=== PATIENT | male | born 1945 ===

== ENCOUNTER 2022-09-09 15:51 | Outpatient (REF) | payer OTHER, SELFPAY ==
[2022-09-09 19:08] LABS: Hemoglobin A1C 5.6 % (<5.7)
[2022-09-09 19:17] LABS: ALT 38 U/L (16-63); AST 23 U/L (15-37); Albumin 4.1 g/dL (3.4-5.0); Alkaline Phosphatase 56 U/L (46-116); Anion Gap 4.9 mmol/L (3-11); BUN 7 mg/dL (7-18); Bilirubin, Total 0.5 mg/dL (0.2-1.0); CO2 31.1 mmol/L (21.0-32.0); Calcium 9.1 mg/dL (8.5-10.1); Calculated LDL 114 mg/dL (<100); Chloride 102 mmol/L (98-107); Cholesterol 202 mg/dL (<200); Estimated GFR 78.49 (mL/min/1.73m2); Glucose 111 mg/dL (74-106); HDL Cholesterol 75 mg/dL (40-60); Potassium 4.4 mmol/L (3.5-5.1); Sodium 138 mmol/L (136-145); Total Protein 7.7 g/dL (6.4-8.2); Triglyceride 68 mg/dL (<150)
[2022-09-12 09:08] LABS: PSA, Screening 3.7 ng/mL (<=6.5)
== END 2022-09-09 15:52 | disposition home or self-care (01) ==
LOC: NCHCN 15:51
PROVIDERS: Visit Provider Nurse Practitioner Family
DX: Z13.1 Encounter for screening for diabetes mellitus (principal); Z13.220 Encounter for screening for lipoid disorders; Z12.5 Encounter for screening for malignant neoplasm of prostate; Z00.00 Encounter for general adult medical examination without abnormal findings
CPT/HCPCS: 80053; 80061; 84153; 83036

== ENCOUNTER 2023-05-29 15:38 | Emergency (ER) | payer MEDICARE, OTHER, SELFPAY ==
[2023-05-29 15:49] VITALS: BP 148/71; PULSE 62; RESP 14; TEMP 36.7; O2SAT 99
--- NOTE | 2023-05-29 16:04 | ED.GENADUL_ITS ---
Discharge Plan Disposition Patient Disposition: Home Condition: Stable Discharge Details Chief Complaint: Laceration Clinical Impression: Laceration of right wrist Primary Care Provider: Unknown,Unknown ED Provider: Deven Meadows Discharge Instructions Additional Instructions: Your wound appears to be healing well without signs of infection you can keep bacitracin or neosporin on the wound for a week if not better within a week follow up with your primary care provider if you feel more ill, have severe worsening pain or fevers return to the emergency department Medical Decision Making 77 yo male comes in with a right anterior wrist wound for a week. States he cut it on a shingle a week ago and still has some redness around the wound so came here to have it evaluated. Denies pain, fevers, pain. He has a 1cm scabbed wound on the anterior right wrist, no tenderness or fluctuance, no palpable foreign body, has 1mm very faint erythema surrounding the wound. Exam consistent with healing wound and do not feel he requires antibiotics. Advised he can use topical antimicrobial and advised to f/u with pcp if not improving in a week and return precautions given Differential Diagnosis Differential Diagnosis: healing wound, lac, HPI General Mode of arrival: ambulatory . Date/Time Provider Initiated Documentation: 05/29/23 15:41 . Limitations to Documentation: no limitations . Information obtained by: patient . History of Present Illness 77 year old M presents to the emergency department with the chief complaint of right wrist wound, described as mild and moderate, Patient started experiencing this week(s) (1) and it has been constant. No relieving factors improve symptom(s), No exacerbating factors reported . Patient notes no other symptoms.. Related Data Home Medications Medication Instructions Recorded Confirmed Unknown [No Known Home Meds] 05/29/23 05/29/23 Allergies Allergy/AdvReac Type Severity Reaction Status Date / Time atorvastatin [From Lipitor] Allergy Severe Other (See Unverified 05/29/23 15:55 Comment) coconut Allergy Severe Anaphylaxis Unverified 05/29/23 15:54 General Stated Complaint: Laceration JANELLE: 4 Review of Systems All systems reviewed & are unremarkable except as noted in HPI and below Constitutional Constitutional: Denies chills, Denies fever(s) and Denies weakness Cardiovascular Cardiovascular: Denies chest pain and Denies dyspnea Respiratory Respiratory: Denies cough and Denies dyspnea Gastrointestinal Gastrointestinal: Denies abdominal pain, Denies nausea and Denies vomiting Neurologic Neurologic: Denies weakness PFSH All Active Problems (Updated 05/29/23 @ 16:07 by Deven Meadows MD) Laceration of right wrist (Acute) Social History Smoking/Tobacco Use Status: Never Smoking risk assessment performed?: Yes Alcohol Intake: current Alcohol Intake frequency: 0-2 drinks per day Alcohol type: wine Drug use: Never Substance use type: does not use Housing: house Exam Const General: no acute distress Orientation: alert HENMT Head: normal to inspection Ears: external ears normal General nose exam: external nose normal Mouth: moist mucous membranes Eyes General: appearance normal, both eyes and all related structures Neck Neck: normal visual inspection Resp Effort & Inspection: normal respiratory effort and able to speak in complete sentences Cardio Rate: regular rate Skin General skin exam: elasticity normal Neuro General: patient alert and patient oriented x3 Extrem General: full ROM and capillary refill normal Psych Mental Status: mental status grossly normal Course Vital Signs Vital signs: Vital Signs Temperature 36.7 C 05/29/23 15:49 Pulse 62 05/29/23 15:49 Respiratory Rate 14 05/29/23 15:49 Blood Pressure 148/71 H 05/29/23 15:49 Pulse Oximetry 99 05/29/23 15:49 Temperature 36.7 C 05/29/23 15:49 Temperature Source Temporal Artery Scan 05/29/23 15:49 Pulse 62 05/29/23 15:49 Respiratory Rate 14 05/29/23 15:49 Respiratory Effort Normal 05/29/23 15:51 Blood Pressure 148/71 H 05/29/23 15:49 Blood Pressure Position Sitting 05/29/23 15:49 Pulse Oximetry 99 05/29/23 15:49 Oxygen Delivery Method Room Air 05/29/23 15:49 Oxygen Flow Rate 0 05/29/23 15:49 Pain Level 0 05/29/23 15:49 PAWSS Have you Been Recently Intoxicated or Drunk Within the Last 30 days?: No Have you Ever Experienced Previous Episodes of Alcohol Withdrawal?: No Have you ever Experienced Withdrawal Seizures?: No Have you ever Experienced Delirium Tremens(DT)s?: No Have you ever undergone Alcohol Rehabilitation Treatment (i.e, inpt ot outpatient treatment programs)?: No Have you ever Experienced Blackouts?: No Have you ever Combined Alcohol with other Downers within the last 90 days?: No Have you ever Combined Alcohol with any other Substance of Abuse during the last 90 days?: No Result: 0
[2023-05-29] MEDS: Bacitracin 1 PACKET TP (16:05)
== END 2023-05-29 16:18 | disposition home or self-care (01) ==
PROVIDERS: Emergency Provider Emergency Medicine
DX: S61.511A Laceration without foreign body of right wrist, initial encounter (principal); X58.XXXA Exposure to other specified factors, initial encounter
CPT/HCPCS: 99281; 99282

== ENCOUNTER 2023-11-13 15:15 | Outpatient (REF) | payer MEDICARE, OTHER, SELFPAY ==
[2023-11-13 20:03] LABS: HCT 40.6 % (40.0-50.0); HGB 14.3 g/dL (13.5-17.5); MCH 32.2 pg (27.0-33.0); MCHC 35.2 % (32.0-36.0); MCV 91 fL (80-95); MPV 9.2 fL (8.0-11.0); Platelet Count 216 10^3/uL (130-400); RBC 4.44 10^6/uL (4.36-5.78); RDW 13.3 % (11.8-14.1); RDW-SD 44.3 fL; WBC 4.62 10^3/uL (4.4-10.8)
[2023-11-13 20:24] LABS: ALT 41 U/L (16-63); AST 24 U/L (15-37); Albumin 4.1 g/dL (3.4-5.0); Alkaline Phosphatase 57 U/L (46-116); Anion Gap 10.3 mmol/L (3-11); BUN 9 mg/dL (7-18); CO2 24.7 mmol/L (21.0-32.0); Calcium 9.3 mg/dL (8.5-10.1); Chloride 103 mmol/L (98-107); Glucose 111 mg/dL (74-106); Potassium 4.3 mmol/L (3.5-5.1); Sodium 138 mmol/L (136-145); Total Protein 7.6 g/dL (6.4-8.2)
[2023-11-13 21:42] LABS: Bilirubin, Total 0.6 mg/dL (0.2-1.0)
[2023-11-14 18:05] LABS: PSA, Screening 4.1 ng/mL (<=6.5)
== END 2023-11-13 15:16 | disposition home or self-care (01) ==
LOC: NCHCN 15:15
PROVIDERS: Visit Provider Nurse Practitioner Family
DX: D64.9 Anemia, unspecified (principal); K76.0 Fatty (change of) liver, not elsewhere classified; Z12.5 Encounter for screening for malignant neoplasm of prostate; N40.1 Benign prostatic hyperplasia with lower urinary tract symptoms
CPT/HCPCS: 80053; 84153; 85027

== ENCOUNTER 2024-01-13 11:39 | Emergency (ER) | payer MEDICARE, OTHER, SELFPAY ==
[2024-01-13 11:41] VITALS: BP 169/88; PULSE 74; RESP 15; TEMP 36.6; O2SAT 99
--- NOTE | 2024-01-13 11:44 | ED.GENADUL_ITS ---
Discharge Plan Disposition Patient Disposition: Home Discharge Details Clinical Impression: Degenerative disc disease, cervical Primary Care Provider: Unknown,Unknown ED Provider: Agusto Gorman Home Meds and New Rx's Prescriptions: Continued omeprazole 40 mg capsule,delayed release(DR/EC) 40 mg PO DAILY Discharge Instructions Additional Instructions: You are seen in the emergency department for your neck pain. Your CAT scan showed no sign of any fractures in your neck. You do have degenerative disc disease. Please follow-up with your primary care provider as you may benefit from an MRI. If you develop weakness in your hands or lose sensation in her hands please return to the emergency department. Otherwise please follow-up with the primary care provider. You are receiving several tablets of an opiate medicine which you should take as needed for pain. Please do not drive or operate any machinery after taking your opiates. For your pain please take medications as follows: 1. Take acetaminophen (Tylenol), 1,000 mg (two 500 mg tabs) every 6 hours Discharge Data Discharge Date/Time-TO BE ENTERED AT DEPARTURE: 01/13/24 14:25 HPI General Date/Time Provider Initiated Documentation: 01/13/24 11:44 . HPI Narrative: MDM This is a very well-appearing normothermic and not tachycardic 78-year-old male with fall 2 weeks ago and persistent neck pain concerning for cervical fracture based on age. Patient is neurologically intact so if his CT is negative I do not feel he requires an emergent MRI. Given the duration of time since his fall and his lack of nausea vomiting and headache my suspicion for subdural hematoma is low as I do not feel that he requires a CT head. Furthermore has not been nauseous or dizzy. No pain out of proportion to suggest necrotizing soft tissue infection. No upper extremity weakness nor hyperreflexia to suggest upper motor neuron lesion. No midline thoracic nor lumbar spinal pain to suggest benefit from CT thorax nor lumbar. Clear lungs bilaterally without chest pain nor shortness of breath so my suspicion is low for pneumothorax I did not obtain chest x-ray. No chest pain to suggest ACS. No weakness and neurologically intact so doubt CVA. No visual changes to suggest increased risk for retinal detachment. No tonic-clonic activity to suggest seizures I do not feel the patient requires an EEG. No recent chiropractic manipulation to suggest cervical arterial dissection. No generator use and no LANDAVERDE so my suspicion for toxicity from carbon monoxide is low. No headache nor visual changes to suggest giant cell arteritis. 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 Will defer acetaminophen as patient has been taking this at home with little relief. 2:[address] showing no acute fracture or subluxation but cervical spondylosis and degenerative disc disease. Will advise continued acetaminophen and provide several oxycodone tablets as patient did not feel much improved following diaze janny. I advised PCP follow-up. Will give patient return indications including any weakness loss of sensation in his hands or any recurrent falls. Patient, and I discussed return indications and patient was discharged with empiric trial of expectant outpatient management. 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 Patient reports that approximately 2 weeks ago he fell forward. He reports breaking his glasses. He was able to get up but has had persistent left-sided neck pain. He has a history of degenerative neck disease he reports. 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 He has been taking acetaminophen but this has not improved his symptoms. He has had no weakness in his hands or shoulders. No chest pain. No shortness of breath. No subsequent falls. He has had no back pain but does have sore shoulders. No dysuria nor frequency. No headaches. No visual changes. Exam General: Well-appearing in no acute distress speaking in complete sentences. Head: Normocephalic, atraumatic. Eye:[Pupils equal, round reactive to light.] Extraocular eye movements intact. No conjunctival injection. No scleral icterus. Ear, nose, mouth, throat: Grossly normal inspection. Normal voice, handling secretions normally. Neck: Trachea midline. Midline cervical spinal tenderness at approximately level of C3. No step-offs. Cardiovascular: Well-perfused distal extremities. Regular rate and rhythm. Respiratory: Nonlabored respiration. Clear lungs bilaterally. Gastrointestinal: Nondistended abdomen. Musculoskeletal: No edema. Moving all 4 extremities spontaneously. 5 out of 5 strength bilateral upper and lower extremities. Negative Sepulveda's sign. No signs of muscle wasting in hands. Intact sensation motor function bilateral hands across the radial, median, and ulnar nerve distributions. Skin: Normal for age and race, grossly normal temperature and turgor. No acute rash. Neurologic: Alert and appropriate, no apparent acute deficits. GCS 15. Cranial nerves II through XII intact grossly. No dysmetria. No dysdiadochokinesia. No pronator drift. Psychiatric: Mood and manner are appropriate. Grooming and personal hygiene are appropriate. Related Data Home Medications Medication Instructions Recorded Confirmed omeprazole 40 mg capsule,delayed 40 mg PO DAILY 01/13/24 01/13/24 release Allergies Allergy/AdvReac Type Severity Reaction Status Date / Time coconut Allergy Severe Anaphylaxis Unverified 01/13/24 11:45 atorvastatin [From Lipitor] AdvReac Severe joint Unverified 01/13/24 12:17 pain/ stiffness/ unable to move General JANELLE: 4 Medical Decision Making Quality:SDOH Health Related Social Needs: No Data to Display PFSH All Active Problems (Updated 01/13/24 @ 14:11 by Agusto Gorman MD) Degenerative disc disease, cervical (Acute) Social History Smoking/Tobacco Use Status: Never Smoking risk assessment performed?: Yes Alcohol Intake: current Alcohol Intake frequency: 0-2 drinks per day Alcohol type: wine Drug use: Never Substance use type: does not use Housing: house
--- NOTE | 2024-01-13 12:15 | DI.CT_ITS ---
Exam(s) CT CERVICAL SPINE WO EXAM: CT CERVICAL SPINE WO CLINICAL HISTORY: Midline neck pain status post fall. TECHNIQUE: Imaging Protocol: Axial computed tomography images with coronal and sagittal reformatted images were created and reviewed COMPARISON: No exams were available for comparison FINDINGS: Bones: No acute fracture or subluxation. There is straightening of the normal cervical lordosis. The re are degenerative changes seen throughout the cervical spine characterized by joint space narrowing and osteophytes. The findings are most marked at C4-5 and C5-C6 with combination of central spinal canal or neural foraminal stenosis present. There is multilevel facet arthropathy in the cervical sp ine. Soft Tissues: Unremarkable. Lung Apices: Clear. IMPRESSION: 1. No acute fracture or subluxation in the cervical spine. 2. Moderately severe degenerative changes in the cervical spine as described above. RADIATION DOSE DELIVERED: Total DLP Total DLP DATA REPOSITORY: All CT scans at this facility are submitted to the National Radiology Data Registry (NRDR) Dose Index Registry (DIR) with the [employer] (ACR). RADIATION OPTIMIZATION: All CT scans at this facility use at least one of these dose optimization te chniques: automated exposure control; mA and/or kV adjustment per patient size (includes targeted exa ms where dose is matched to clinical indication); or iterative reconstruction.
[2024-01-13] MEDS: diazePAM 5 MG TAB PO (12:39)
[2024-01-13] MEDS: Lidocaine 5% Patch 1 PATCH TP (12:59)
--- NOTE | 2024-01-13 13:45 | DI.VRAD_ITS ---
PROCEDURE INFORMATION: Exam: CT Cervical Spine Without Contrast Exam date and time: 01/13/2024 12:51 PM Age: 78 years old Clinical indication: Injury or trauma; Other: Midline neck pain status post fall; Sprain or strain, cervical ligaments TECHNIQUE: Imaging protocol: Computed tomography of the cervical spine without contrast. COMPARISON: No relevant prior studies available. FINDINGS: Bones/joints: There is straightening of cervical lordosis with mild reversal. No acute fracture. 3 mm grade 1 retrolisthesis of C4 on C5. There is osteophyte disc complex at C4-C5 and C5-C6 with mild central spinal canal stenosis. Uncovertebral osteophytes at bilateral C5-C6 cause moderate neural foraminal stenosis. There is severe left and [id number] right neural foraminal stenosis at C4-C5. Disc degenerative changes with moderate to severe loss of disc height at C4-C5, C5-C6 and C6-C7. There is moderate left facet arthropathy at C3-C4 and mild facet arthropathy in the left side of the C4-C5 . Lungs: Lung apices are normal. Soft tissues: Unremarkable. IMPRESSION: 1. No acute fracture or subluxation. 2. Cervical spondylosis and disc degenerative changes most prominent at C4-C5 and C5-C6. Dictated and Authenticated by: Nathanael Gregory MD. Ordering:MARC Liz MD
== END 2024-01-13 14:25 | disposition home or self-care (01) ==
PROVIDERS: Emergency Provider Emergency Medicine
DX: M50.322 Other cervical disc degeneration at C5-C6 level (principal)
CPT/HCPCS: 99284; 72125

== ENCOUNTER 2024-11-26 13:54 | Outpatient (REF) | payer MEDICARE, SELFPAY ==
--- OUTSIDE RECORDS SUMMARY | 2024-11-26 13:57 | XMS_ITS | Continuity of Care Document ---
Author Organization [facility] Address [address] [place] [address] Care Team Providers Care Beef Grinder Name Role Phone Jesika Harmon Primary Care Physician Encounter [facility] Date(s): 05/05/23 - 05/05/[address] [address] Discharge Disposition: Home or Self Care Attending Physician: Jennifer Zaman PA-C Admitting Physician: Jennifer Zaman PA-C Referring Physician: Jennifer Zaman PA-C Allergies, Adverse Reactions, Alerts Substance Reaction Severity Status COCONUT Unknown Active Immunizations Given and Recorded Vaccine Date Status Refusal Reason tetanus/diphth/pertuss (Tdap) adult/adol 05/31/21 Recorded Social History Social History Type Response Sex Male Patient Care team information Care Team Personnel Name: Jesika Harmon GASOLINE ENGINE ASSEMBLER Position: PowerChart View Only Member Role: Primary Care Physician Address: Address: [address] [place] [id number]
--- OUTSIDE RECORDS SUMMARY | 2024-11-26 13:57 | XMS_ITS | Continuity of Care Document ---
Author Organization [facility] Address [address] [place] [address] Care Team Providers Care Air Conditioning Installer Name Role Phone Jesika Harmon Primary Care Physician Encounter [facility] Date(s): 06/28/24 - 06/28/[address] [address] Discharge Disposition: Home or Self Care Attending Physician: Jennifer Rios PA-C Admitting Physician: Jennifer Rios PA-C Referring Physician: Jennifer Rios PA-C Allergies, Adverse Reactions, Alerts Substance Criticality Severity Reaction Reaction Severity Status COCONUT Unable to assess criticality Unknown Active Immunizations Given and Recorded Vaccine Date Status Refusal Reason tetanus/diphth/pertuss (Tdap) adult/adol 05/31/21 Recorded Medications omeprazole 0 Refill(s) Start Date: 01/03/24 Status: Ordered Social History Social History Type Response Tobacco Former tobacco user Tobacco Use:. 1 Sex Male Sex Representation Male (finding) 1quit 55 years ago Patient Care team information Care Team Personnel Name: Jesika Harmon MEDICAL EXAMINER Position: PowerChart View Only Member Role: Informed Provider Address: [address] [place] [address]- Care Team Related Persons Name: JULIANA NGO Insurance Providers Guarantor name: JESICA [employer] Health Plan Information #: 2 Payer: [employer] MEDICARE SUPPLEMENT Member Number: [id number] Policy Number: NA Health Plan Information #: 1 Payer: MEDICARE B [employer] Member Number: [id number] Policy Number: NA
--- OUTSIDE RECORDS SUMMARY | 2024-11-26 13:57 | XMS_ITS | Clinical Summary ---
Author Organization [facility] Address [address] [place] [address] Care Team Providers Care Fisher Net Name Role Phone Sangita Nolasco MD Primary Care Provider [phone] Allergies Active Allergy Reactions Criticality Noted Date Comments Coconut Swelling of throat 08/18/2013 Atorvastatin Muscle Aches 01/02/2014 Muscle weakness Medications aspirin 81 mg EC tablet Take 81 mg by mouth at bedtime. Reported on 10/25/2016 Active Multivitamins with Minerals Tab Take 1 Tab by mouth daily. Reported on 10/25/2016 Active APPLE CIDER VINEGAR ORAL Take by mouth daily. Active multivit-min/ir on/folic/was421 (HAIR, SKIN AND NAILS ADVANCED ORAL) Take by mouth. Active Active Problems Problem Noted Date Diagnosed Date Right carpal tunnel syndrome 12/22/2021 Overview (12/22/2021): Added automatically from request for surgery [id number] Left carpal tunnel syndrome 01/10/2021 Venous insufficiency, peripheral 11/25/2020 Carpal tunnel syndrome of left wrist 10/22/2020 Surgical aftercare, musculoskeletal system 04/22 Delayed emergence from anesthesia 04/21/2020 Chronic left shoulder pain 01/13/2020 Secondary adhesive capsulitis of left shoulder 0 01/13/2020 Osteoarthritis of left glenohumeral joint 2019 Partial tear of subscapulari s tendon, left, subsequent encounter 01/13/2020 Infraspinatus tendon tear, left, subsequent enco unter 01/13/2020 Primary osteoarthritis of right knee 10/25/2016 Overview (10/25/2016): Mild Neuritis 10/25/2016 Overview (10/25/2016): Possible infrapatellar branch right knee when kneeling versus bursitis Osteoarthritis of knee 03/08/2016 Bucket handle tear of medial meniscus of knee Overview (10/19/2016): Acute Primary localized osteoarthrosis of shoulder reg ion 01/02/2014 Overview (08/02/2015): IMO Update Auto Replacement Disorder of bursae and tendons in shoulder regio n 01/02/2014 Overview (08/02/2015): IMO Update Auto Replacement Strain of subscapularis muscle 01/02/2014 Overview (07/16/2015): ICD10 Update Auto Replacement Trigger finger of right hand 12/09/2013 Impingement syndrome of left shoulder 11/04/2013 Overview (10/19/2016): Moderate Arthrosis of left acromioclavicular joint 2013 Overview (10/19/2016): Severe moderate left AC arthrosis Tear of left supraspinatus tendon 11/04/2013 Overview (10/19/2016): Severe SOB (shortness of breath) 01/02/2013 Routine health maintenance 05/24/2011 Overview (05/24/2011): Colonoscopy in 2008/ Due in 2013 Family history of diabetes mellitus (DM) 011 Family history of malignant neoplasm 05/24/2011 Former smoker 05/24/2011 Hypertensive disorder 05/24/2011 Fibromyalgia 05/24/2011 Colon polyp 05/24/2011 Overview (05/24/2011): Adenoma Sleep apnea Immunizations Name Administration Dates Next Due Covid-19 mRNA Vaccine (PFIZE R COVID-19) PF 0.3 ml IM (12 yrs+) 12/31/2020,12/11/2020 Influenza (whole) 07/16/2013 Tdap Vaccine =>7YO IM 12/09/2018 Surgical History Surgery Date Site/Laterality Comments SHOULDER SURGERY Medical History Medical History Date Comments Chest heaviness Abnormal stress test Acid reflux Snores Anemia Colon polyp Bucket handle tear of medial meniscus of knee Impingement syndrome of left shoulder 11/04/2013 Osteoarthritis of knee 03/08/2016 Arthrosis of left acromioclavicular joint 2013 Tear of left supraspinatus tendon 11/04/2013 Paresthesia and pain of left extremity 01/2021 having sx on 06/24/21 Wears dentures full set Sleep apnea no cpap Sleep apnea Family History Medical History Relation Comments Heart Attack Brother Relation Status Comments Brother Father (Age 58) liver cancer Mother (Age 72) lung cancer Social History Tobacco Use Types Packs/Day Years Used Date Smoking Tobacco: Former Cigarettes Q uit: 01/03/1968 Smokeless Tobacco: Never Alcohol Use Standard Drinks/Week Comments Yes 1 (1 standard drink = 0.6 oz pur e alcohol) 1 glass nightly of Red wine Interpersonal Safety Answer Date Record ed Physically Hurt Never 05/17/2020 Verbally Threaten Not on file 05/17/2020 Sex and Gender Information Value Date Recorded Sex Assigned at Male 03/18/2022 9:53 EDT Legal Sex Male 18:08 EST Gender Identity Male 09/16/2019 15:02 EST Sexual Orientation Not on file Obstetrics History Last Filed Vital Signs Vital Sign Reading Time Taken Comments Blood Pressure 142/71 06/24/2021 1315 EDT Pulse 65 11/25/2020 1332 EST Temperature 36.4 ??C (97.5 ??F) 06/24/2021 1311 EDT Respiratory Rate 19 06/24/2021 1315 EDT Oxygen Saturation 98% 06/24/2021 1315 EDT Inhaled Oxygen Concentration - - Weight 81.2 kg (179 lb) 11/26/2021 1109 EST Height 172.7 cm (5' 8) 11/26/2021 1109 EST Body Mass Index 27.22 11/26/2021 1109 EST Plan of Treatment Health Maintenance Due Date Last Done Comments Hepatitis C Screen 1945 Fall Risk Screening 12/30/2011 RSV Immunization ( o r 60+ Years) (1 - 1-dose 75+ series) 2021 COVID-19 Vaccine ( - season) 2024, 12/11/2020 Medical Devices Implanted Type Area Personnel Manager Device Identifier Shelf Expiration Date Model / Serial / Lot [place] Suture 4.75mm Heal[employer]il [id number] - [id number] Implanted:Qt y: 1 on 04/21/2020 by Agusto Howell III, MD at [facility] [place] Left: Shoulder [employer] 10/15/2023 [id number] / [id number] / [place] Suture 4.75x19.1mm Swivelock [id number] - [id number] Implanted:Qt y: 1 on 04/21/2020 by Agusto Howell III, MD at [facility] [place] Left: Shoulder [employer] [id number] 10/15/2023 [id number] / / [id number] Insurance [employer] MEDICARE [place] [employer] [facility] [place] [address] Advance Directives For more information, please contact: [phone] * Full Code (Latest Code Status on File) Date Activated Date Inactivated Comments 04/21/2020 9:41 04/21/2020 20:07 Question Answer Comments Reason for decision includes: Full code consistent with overall plan of care Who participated in the discussion? Not Discusse d * Full Code Date Activated Date Inactivated Comments 01/02/2014 9:50 01/02/2014 20:49 * Full Code Date Activated Date Inactivated Comments 01/18/2013 8:18 01/21/2013 21:49 Care Teams Fisher Net Relationship Specialty Start Date End Date Sangita Nolasco MD PCP - General 06/24/21
--- OUTSIDE RECORDS SUMMARY | 2024-11-26 13:57 | XMS_ITS | Continuity of Care Document ---
Author Organization [facility] Address [address] [place] [address] Care Team Providers Care Building Guard Deputy Sheriff Name Role Phone Jesika Harmon Primary Care Physician Encounter [facility] Date(s): 01/03/24 - 01/03/[address] [phone] [place] Encounter Diagnosis Hand sprain(Discharge Diagnosis) - 01/03/24 Sprain of unspecified part of right wrist and hand, initial encounter(Final) - Fall on same level from slipping, tripping and stumbling with subsequent striking against other object, initial encounter(Final) - Other specified places as the place of occurrence of the external cause(Final) - Activity, other specified(Final) - Discharge Disposition: Higher Level of Care Attending Physician: Laura Villalobos MD Admitting Physician: Laura Villalobos MD Allergies, Adverse Reactions, Alerts Substance Reaction Severity Status COCONUT Unknown Active Assessment and Plan Extracted from: Title:ED Provider Note Author:Darnell Deleon MD Date:01/03/24 1.??Hand sprain??S63.90XA Ordered: Discharge Patient, 01/03/24 17:52:00 EDT, Home Independently, Constant Indicator ?? Functional Status 01/03/24 Recent Travel History No recent travel Immunizations Given and Recorded Vaccine Date Status Refusal Reason tetanus/diphth/pertuss (Tdap) adult/adol 05/31/21 Recorded Medications omeprazole 0 Refill(s) Start Date: 01/03/24 Status: Ordered Vital Signs Most recent to oldest [Reference Range]: 1 Temperature Temporal Artery [36-38 Deg C ] 35.6 Deg C *LOW* (01/03/24 4:19 PM) Heart Rate Monitored [60-100 bpm] 75 bpm (01/03/24 4:19 PM) Respiratory Rate [12-24 br/min] 18 br/mi n (01/03/24 4:19 PM) Systolic Blood Pressure [90-140 mmHg] 15 0 mmHg *HI* (01/03/24 4:19 PM) Weight Estimated 81.65 kg (01/03/24 4:19 PM) Body Mass Index Estimated 27.37 kg/m2 (01/03/24 4:19 PM) Height/Length Estimated 172.72 cm (01/03/24 4:19 PM) Social History Social History Type Response Tobacco Former tobacco user Tobacco Use:. 1 Sex Male 1quit 55 years ago Physician Emergency department Note * Darnell Deleon MD: PERFORM Event Display: ED Note Physician Authored Date: [id number] JESICA NGO Nellie :1945 Age:78 years Sex:Male Visit Date:01/03/2024 Primary Care Physician: Jesika Harmon NP Basic Information Time Seen: Darnell Deleon MD / 01/03/2024 17:41 Chief Complaint pt states that he fell on Monday, hit his head, no LOC. not on blood tinnners. now c/o right hand pain and swelling. History Of Present Illness: Any concern is hand injury. ??The patient tripped and fell on Monday, 3 days ago,??while jogging. ??Injured his head??without sequelae.?? Has developed swelling in his right hand that persists??whichcaused him concern. Review of Systems: No other injuries. Physical Exam Mild diffuse swelling over the dorsum of right hand. Medical Decision Making: Complexity is low. ??Data complexity is low. ??Risk of management are low. ??[facility] coding 18679. Procedure No Qualifying Data Assessment/Plan 1.??Hand sprain??S63.90XA Ordered: Discharge Patient, 01/03/24 17:52:00 EDT, Home Independently, Constant Indicator ?? Medication Reconciliation Unchanged omeprazole Problem List/Past Medical History Ongoing No qualifying data Historical No qualifying data Allergies COCONUT Social History Electronic Cigarette/Vaping Electronic Cigarette Use: Never. Tobacco Former tobacco user Tobacco Use:.- Comments: quit 55 years ago Electronically Signed on 01/03/24 05:52 PM Darnell Deleon MD Emergency department Discharge instructions * Darnell Deleon MD: PERFORM Event Display: ED Discharge Information Authored Date: [id number] JENI JESICA Ballard :1945 Age:78 years Sex:Male Visit Date:01/03/2024 Primary Care Physician: Jesika Harmon RECORDAK OPERATOR Discharge Instructions We would like to thank you for allowing us to assist you with your healthcare needs. The following includes patient education materials and information regarding your injury/illness. Diagnosis from Today's Visit Hand sprain Allergies COCONUT What to Do Next Instructions from Your Care Team No major injuries to your hand.?? You do have??cyst in your wrist??but there is no evidence of any damage to your hand??or your wrist.?? There should be gradual improvement. ?? You may take Tylenol and/or ibuprofen if needed for discomfort, although I appreciate you have an aversion to taking pain medications. ?? Darnell Deleon MD You were treated today on an emergency basis; it may be hernandez to contact your primary care provider to notify them of your visit today. You may have been referred to your regular doctor or a specialist, please follow up as instructed. If your condition worsens or you can't get in to see the doctor, contact the Emergency Department. Medications What When Instructions Next Dose Unchanged omeprazole Patient/Residential Child Care Counselor Signature Patient Name:JESICA NGO I have received this information and my questions have been answered. Patient/Residential Child Care Counselor Name: Patient/Residential Child Care Counselor Signature: Relationship to Patient: Witness Name/Signature: Date: Electronically Signed on: 01/03/2024 17:53 EDTSigned by:[facility] Patient Care team information Care Team Personnel Name: Jesika Harmon NP Position: PowerChart View Only Member Role: Informed Provider Address: Address: [address] [place] [address], [place] [address]- Care Team Related Persons Name: JULIANA NGO Address: Home [address] [facility], [id number]
--- OUTSIDE RECORDS SUMMARY | 2024-11-26 13:57 | XMS_ITS | Referral Summary ---
Author Organization [facility] Address [address] [place] [address] Care Team Providers Care Pear Picker Name Role Phone Sangita Nolasco MD Primary Care Provider [phone] [phone] Allergies Active Allergy Reactions Criticality Noted Date Comments Coconut Swelling of throat 08/18/2013 Atorvastatin Muscle Aches 01/02/2014 Muscle weakness Medications aspirin 81 mg EC tablet Take 81 mg by mouth at bedtime. Reported on 10/25/2016 Active Multivitamins with Minerals Tab Take 1 Tab by mouth daily. Reported on 10/25/2016 Active APPLE CIDER VINEGAR ORAL Take by mouth daily. Active multivit-min/ir on/folic/xjs782 (HAIR, SKIN AND NAILS ADVANCED ORAL) Take by mouth. Active Active Problems Problem Noted Date Diagnosed Date Right carpal tunnel syndrome 12/22/2021 Overview (12/22/2021): Added automatically from request for surgery [id number] Left carpal tunnel syndrome 01/10/2021 Venous insufficiency, [...] (whole) 07/16/2013 Tdap Vaccine =>7YO IM 12/09/2018 Social History Tobacco Use Types Packs/Day Years [...] 15:02 EST Sexual Orientation Not on file Last Filed Vital Signs Vital Sign Reading [...] 27.22 11/26/2021 1109 EST Plan of Treatment Not on file Medical Devices Implanted Type Area Tobacco Farmworker Device Identifier Shelf Expiration Date Model / Serial / Lot Hestand Suture 4.75mm Healicoil [id number] - [id number] Implanted:Qt y: 1 on 04/21/2020 by Agusto Howell III, MD at [facility] Hestand Left: Shoulder [employer] 10/15/2023 [id number] / [id number] / Hestand Suture 4.75x19.1mm Swivelock [id number] - [id number] Implanted:Qt y: 1 on 04/21/2020 by Agusto Howell III, MD at [facility] Hestand Left: Shoulder [employer] [id number] 10/15/2023 [id number] / / [id number] Insurance [employer] [place] [employer] [place] Advance Directives For more information, please contact: [phone] * Full Code (Latest Code Status on [...] Comments 01/18/2013 8:18 01/21/2013 21:49 Care Teams Pear Picker Relationship Specialty Start Date End Date Sangita Nolasco MD PCP - General 06/24/21
--- OUTSIDE RECORDS SUMMARY | 2024-11-26 13:57 | XMS_ITS | Encounter Summary ---
Author Organization [facility] Address [address] [place] [address] Care Team Providers Care Personal Development Mentor Name Role Phone Sangita Nolasco MD Primary Care Provider [phone] [phone] Encounter Details Date Type Department Care Team (Late st Contact Info) Description 11/14/2023 Lab Requisition [facility] Pathology & Laboratory Medicine - [facility] [address] [place] [address] Outr Resulting Lab, Provider Social History Tobacco Use Types Packs/Day Years [...] 15:02 EST Sexual Orientation Not on file documented as of this encounter Plan of Treatment Not on file documented as of this encounter Procedures Procedure Name Priority Date/Time Associated Diagnosis Comments PSA TOTAL, DIAGNOSTIC Routine 11/13/2023 10:45 EST documented in this encounter Results * PSA TOTAL, DIAGNOSTIC (11/13/2023 10:45 EST) PSA 4.1 <=6.5 ng/mL 11/14/2023 18:01 EST [facility] Blood VENOUS BLOOD / Unknown 11/13/2023 10:45 EST 11/14/2023 16:58 EST Narrative [facility] - 11/14/2023 18:01 EST NOTE: Serum PSA concentration should not be interpreted as absolute evidence for the presence or absence of malignant disease. Assayed on [employer] XPT using chemiluminescent technology.??Values obtained by using different assay methods cannot be used interchangeably. us Provider Outr Resulting Lab CHEMISTRY & BLOOD GA S ORDERABLES Final Result [facility] [address] [place] [address] documented in this encounter Visit Diagnoses Not on filedocumented in this encounter Care Teams Personal Development Mentor Relationship Specialty Start Date End Date Sangita Nolasco MD PCP - General 06/24/21 documented as of this encounter
--- OUTSIDE RECORDS SUMMARY | 2024-11-26 13:58 | XMS_ITS | Encounter Summary ---
Author Organization [facility] Address [address] [place] [address] Care Team Providers Care Pharmaceutical Physician Name Role Phone Sangita Nolasco MD Primary Care Provider [phone] Reason for Visit * Reason Comments Follow-up s/p Left carpal tunn el release 06/24/2021 Encounter Details Date Type Department Care Team (Latest Contact Info) Description 07/01/2021 11:30 EDT Post-op Visit [facility] Orthopedic Surgery - [facility] [address] [place] [address] Child, Hannah Bowser PA-C [address] [place] [address] Aftercare following surgery of the musculoskeletal system (Primary Dx); Status post carpal tunnel release Social History Tobacco Use Types Packs/Day Years [...] on file documented as of this encounter Last Filed Vital Signs Vital Sign Reading Time Taken Comments Blood Pressure - - Pulse - - Temperature - - Respiratory Rate - - Oxygen Saturation - - Inhaled Oxygen Concentration - - Weight 81.2 kg (179 lb) 07/01/2021 1206 EDT Height 172.7 cm (5' 8) 07/01/2021 1206 EDT Body Mass Index 27.22 07/01/2021 1206 EDT documented in this encounter Progress Notes * Hannah RomanbotJAMES - 07/01/2021 1130 EDT CC: s/p left wrist endoscopic carpal tunnel release Date of surgery: 06/24/2021 SUBJECTIVE: The patient returns for a 1st postoperative visit after undergoing left carpal tunnel release. he has no unusual complaints. The patient denies fever, chills, excessive drainage from the wound, and changes in sensation and strength. he is recovering at home, has resumed activities of daily living. All other systems reviewed and negative unless otherwise specified in the HPI. OBJECTIVE: There were no vitals taken for this visit. On physical exam, the patient is found to be a pleasant and cooperative male who appears to be alert and oriented x 3. He is well-developed, well-nourished and in no significant distress. Breathing is unlabored. On physical exam of the left wrist the wound/incision(s) appear(s) to be healing well. The wound edges are clean, dry and intact. There is no erythema or purulent drainage. 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 He is scheduled to return to clinic to see Dr. Liang to discuss surgery on his right wrist. Follow up: as needed Dr. Liang was the attending physician available in the clinic today if needed. A consultation wasnot required. This note was prepared using voice recognition software and the EMR. There may be inadvertent errors and omissions. Hannah RomanJAMES 07/01/2021 10:46 documented in this encounter Plan of Treatment Not on file documented as of this encounter Visit Diagnoses Diagnosis Aftercare following surgery of the musculoskeletal system- Primary Aftercare following surgery of the musculoskeletal system, NEC Status post carpal tunnel release Other postprocedural status documented in this encounter Care Teams Pharmaceutical Physician Relationship Specialty Start Date End Date Sangita Nolasco MD PCP - General 06/24/21 documented as of this encounter
--- OUTSIDE RECORDS SUMMARY | 2024-11-26 13:58 | XMS_ITS | Encounter Summary ---
Author Organization [facility] Address [address] [place] [address] Care Team Providers Care Agricultural Real Estate Agent Name Role Phone Sangita Nolasco MD Primary Care Provider [phone] Reason for Visit * Auth/Cert Specialty Diagnoses / Procedures Referred By Nelia sanford Referred To Contact Diagnoses Left carpal tunnel syndrome Procedures LA WRIST ARTHROSCOP,RELEASE XVERS LIG Murtaza Liang MD [address] [place] [id number] Phone: tel: fax: Referral ID Status Reason Start Date Expiration Date Visits Re quested Visits Authorized [id number] 01/15/2021 1 1 Encounter Details Date Type Department Care Team (Latest Contact Info) Description 06/24/2021 9:51 EDT - 06/24/2021 13:36 EDT Hospital Encounter [facility] [place] [facility] [address] [place], [place] [address] Murtaza Liang MD [address] [place] [address] Discharge Disposition: Home or Self Care Social History Tobacco Use Types Packs/Day Years [...] Blood Pressure 142/71 06/24/2021 1315 EDT Pulse - - Temperature 36.4 ??C (97.5 ??F) 06/24/2021 1311 EDT Respiratory Rate 19 06/24/2021 1315 EDT Oxygen Saturation 98% 06/24/2021 1315 EDT Inhaled Oxygen Concentration - - Weight 81.6 kg (179 lb 14.3 oz) 06/24/2021 1024 EDT Height 172.7 cm (5' 8) 06/24/2021 1024 EDT Body Mass Index 27.35 06/24/2021 1024 EDT documented in this encounter Discharge Instructions * Discharge Instructions* Murtaza Liang MD - 06/24/2021 12:11 EDT Endoscopic Carpal Tunnel Release Orthopedics - [facility] - Dr. Liang ?? Wound and Dressing Care: You will go home with a bulky soft dressing applied to your surgical site. This dressing may be removed in 72 hours and Band-aids placed over your incision. The band-aids should be changed daily or whenever they get wet or dirty. ?? Bathing: Keep your dressing clean and dry until you remove it on post- operative day #3. You may shower in 72 hours. Do not soak the wound area. At 72 hours it is okay to get the wound wet by letting water run over it but do not submerge the wound in a pool or in dishwater. Pat the incisions dry lightly and place clean band-aids over them. ?? Activity: You may begin to move your wrist and hand gently as tolerated. Light activities such as typing, writing, and eating are encouraged to prevent your fingers from getting stiff. Avoid any lifting over 1 pound for the first week following your surgery. ?? Pain: A moderate amount of pain is expected after your surgery. Use cold packs and keep the arm elevated to minimize swelling and pain. Take Tylenol 650mg every 6 hours regularly. You may also take an anti-inflammatory such as Motrin, Advil or Aleve as directed, and we suggest that you take thisregularly as well for at least the first 72 hours. You will not be given a prescription for a narcotic postoperatively as pain should not reach the point that a narcotic pain medicine is needed and this tends to mask your pain and allows you to not listen to your body. ?? Expectations: Bruising in the palm of the hand and at the IV site for the Thierno Block is common and expected. Bruising should resolve at about 1 week. Patients can develop pain at the large musclesof the hand at the thumb and small finger sides. This is called pillar pain and can last 6 weeks following surgery. It will resolve with time and use. At 1 week following surgery we encourage patients to begin doing massage over the incision site and through the palm of the hand unless there are any wound healing issues. While most patients find that they are able to use the hand normally starting after a week, some patients may experience more swelling and more pain, lengthening the expected recovery time. ?? Follow-up: You should already have an appointment scheduled in the office for follow-up approximately 7-10 days following your surgery. This appointment may be a Zoom appointment as the sutures used for your surgery are dissolvable and do not need to be removed. If you have any questions about your appointment please call the office at [phone]. ?? Concerns: Call our office immediately if you develop a fever over 101; your arm becomes significantly more swollen, red, or painful; you notice drainage or a foul smell from the dressing; or if your limb becomes numb or cold. documented in this encounter Medications at Time of Discharge APPLE CIDER VINEGAR ORAL Take by mouth daily. aspirin 81 mg EC tablet Take 81 mg by mouth at bedtime. Reported on 10/25/2016 Multivitamins with Minerals Tab Take 1 Tab by mouth daily. Reported on 10/25/2016 documented as of this encounter Discharge Disposition Disposition Code Departure Means Destination Home or Self [facility] documented in this encounter H&P Notes * Murtaza Liang MD - 06/24/2021 1205 EDT The preoperative history and physical which was performed within 30 days of this procedure has been reviewed and the clinically appropriate elements of the physical examination have been repeated. There are no changes to the documented history and physical or if so such changes are documented below Murtaza Liang MD 06/24/2021 12:11 Source Note - MATERIAL CONTROLLER, SCAN 2 - 06/22/2021 15:47 EDT documented in this encounter OR Notes * OR Surgeon - Murtaza Liang MD - 06/24/2021 1212 EDT Operative Report Date of Surgery: 06/24/2021 Surgeon: Murtaza Liang MD Pre-Op Diagnosis: Left carpal tunnel syndrome Post-Op Diagnosis: Left carpal tunnel syndrome Procedure(s): Left wrist endoscopic carpal tunnel release Findings: Tight carpal tunnel Anesthesia Type: Regional Indications: Please see the patient's medical record for the specifics of surgical indications. Patient has tried conservative measures to deal with carpal tunnel syndrome and these have not been successful. Narrative Description: After discussing the risks and benefits of surgery, consent was obtained preoperatively. The patient's left wrist was identified as the operative site and the patient was brought back to the operating room. After a procedural timeout was performed, Clarita block anesthesia was placed by the anesthesiology staff using a forearm tourniquet raised to a pressure of 250 mmHg. The left hand and arm were prepped and draped in the standard sterile manner. A 1 cm transverse incision was made at the wrist crease just ulnar to the palmaris longus tendon. Blunt dissection was carried out down to the forearm palmar aponeurosis which was incised sharply in line with the skin incision. A distally based U-shaped flap was created at the palmar aponeurosis and was retracted allowing access to the carpal tunnel. A synovial Mesa was used to scrape the undersurface of the transverse carpal ligament. An endoscope was introduced into the carpal tunnel and excellent visualization was achieved. We divided the transverse carpal ligament in a distal to proximaldirection. Care was taken to fully release the transverse carpal ligament. Proximal and distal to our incision we released the forearm palmar aponeurosis for a distance of 1 cm. The wound was irrigated using 5 mL of half percent Marcaine. The wound was closed using 4-0 Monocryl suture in an interrupted inverted subcutaneous stitch and Dermabond was applied to the incision. The wound was dressed using gauze. The patient received 5 mL of half percent Marcaine at the end of the case for postoperative analgesia. All counts were correct at the end of the case. I was present and scrubbed for the entirety of the case. Fluids in: 100 cc Urine out: Not recorded Estimated Blood Loss: Minimal Specimens/Cultures: None Drains/Packs: None Tourniquet Time: 17 Min Complications: None Disposition and Condition: Barrett Salvador was sent to PACU in Good condition. Murtaza Liang MD 06/24/2021 12:12 documented in this encounter Plan of Treatment Not on file documented as of this encounter Procedures Procedure Name Priority Date/Time Associated Diagnosis Comments ENDOSCOPY, WRIST, WITH TRANSVERSE CARPAL LIGAMENT RELEASE 06/24/2021 12:34 EDT Left carpal tunnel syndrome documented in this encounter Visit Diagnoses Diagnosis Left carpal tunnel syndrome- Primary Carpal tunnel syndrome documented in this encounter Admitting Diagnoses Diagnosis Left carpal tunnel syndrome Carpal tunnel syndrome documented in this encounter Administered Medications Inactive Administered Medications - up to 3 most recent administrations Medication Order MAR Action Action Date Dose Rate Site acetaminophen (TYLENOL) solution unit dose cup 995 mg 995 mg (rounded from 1,000 mg), oral, PRN, 1 dose, Starting on Nida 06/24/21 at 1306, Until Nida 06/24/21 at 1539, Pain, Routine, Recovery (only) acetaminophen (TYLENOL) tablet 1,000 mg 1,000 mg, oral, PRN, 1 dose, Starting on Nida 06/24/21 at 1306, Until Nida 06/24/21 at 1539, Pain, Routine, Recovery (only) atropine 0.1 mg/mL syringe 0.5 mg 0.5 mg, intravenous, PRN, Starting on Nida 06/24/21 at 1306, Until Nida 06/24/21 at 1539, Symptomatic HR < 50, Routine, Recovery (only) ibuprofen (MOTRIN) tablet 800 mg 800 mg, oral, PRN, 1 dose, Starting on Nida 06/24/21 at 1306, Until Nida 06/24/21 at 1539, Pain, Routine, Recovery (only) lactated ringers (LR) infusion at 25 mL/hr, intravenous, CONTINUOUS, Starting on Nida 06/24/21 at 1200, Until Nida 06/24/21 at 1539, Routine, Preprocedure Restarted 06/24/2021 12:47 EDT Continued by Anesthesia 06/24/2021 12:45 EDT 25 mL/hr New Bag 06/24/2021 11:41 EDT 25 mL/hr lactated ringers (LR) infusion at 75 mL/hr, intravenous, CONTINUOUS, Starting on Nida 06/24/21 at 1330, Until Nida 06/24/21 at 1539, Routine, Recovery (only) naloxone (NARCAN) injection 0.2 mg 0.2 mg, intravenous, PRN, Starting on Nida 06/24/21 at 1306, Until Nida 06/24/21 at 1539, Opioid Reversal, Routine, Recovery (only) ondansetron (PF) (ZOFRAN) injection 4 mg 4 mg, intravenous, PRN, 1 dose, Starting on Nida 06/24/21 at 1306, Until Nida 06/24/21 at 1539, Nausea, Vomiting, Routine, Recovery (only) documented in this encounter Active and Recently Administered Medications Times are shown in EDT. Continuous Medication Order 06/22/2021 06/23/2021 06/24/2021 lactated ringers (LR) infusion at 25 mL/hr, intravenous, CONTINUOUS, Starting on Nida 06/24/21 at 1200, Until Nida 06/24/21 at 1539, Routine, Preprocedure 1141 (New Bag - Prov ider: Cheri Edwards RN)1245 (Continued by Anesthesia - Provider: Murtaza Liang MD)1246 (Paused - Provider: Deven Mccormick CRNA - Comment: Switch to gravity)1247 (Restarted - Provider: Deven Mccormick CRNA)1314 (Anesthesia Volume Adjustment - Provider: Deven Mccormick CRNA) lactated ringers (LR) infusion at 75 mL/hr, intravenous, CONTINUOUS, Starting on Nida 06/24/21 at 1330, Until Nida 06/24/21 at 1539, Routine, Recovery (only) 1321 (Completed - Pr ovider: Thi Oshea RN) PRN Medication Order 06/22/2021 06/23/2021 06/24/2021 acetaminophen (TYLENOL) solution unit dose cup 995 mg(Linked Group 1) 995 mg (rounded from 1,000 mg), oral, PRN, 1 dose, Starting on Nida 06/24/21 at 1306, Until Nida 06/24/21 at 1539, Pain, Routine, Recovery (only) acetaminophen (TYLENOL) tablet 1,000 mg(Linked Group 1) 1,000 mg, oral, PRN, 1 dose, Starting on Nida 06/24/21 at 1306, Until Nida 06/24/21 at 1539, Pain, Routine, Recovery (only) atropine 0.1 mg/mL syringe 0.5 mg 0.5 mg, intravenous, PRN, Starting on Nida 06/24/21 at 1306, Until Nida 06/24/21 at 1539, Symptomatic HR < 50, Routine, Recovery (only) bupivacaine (PF) (MARCAINE) 0.5% injection (CANCELED) PRN, Starting on Nida 06/24/21 at 1301, Until Nida 06/24/21 at 1309, Routine, Intraprocedure 1301 (Given - Provid er: Murtaza Liang MD) ibuprofen (MOTRIN) tablet 800 mg 800 mg, oral, PRN, 1 dose, Starting on Nida 06/24/21 at 1306, Until Nida 06/24/21 at 1539, Pain, Routine, Recovery (only) naloxone (NARCAN) injection 0.2 mg 0.2 mg, intravenous, PRN, Starting on Nida 06/24/21 at 1306, Until Nida 06/24/21 at 1539, Opioid Reversal, Routine, Recovery (only) ondansetron (PF) (ZOFRAN) injection 4 mg 4 mg, intravenous, PRN, 1 dose, Starting on Nida 06/24/21 at 1306, Until Nida 06/24/21 at 1539, Nausea, Vomiting, Routine, Recovery (only) Linked Groups Order Group 1: acetaminophen (TYLENOL) solution unit dose cup 995 mgJump to med 995 mg (rounded from 1,000 mg), oral, PRN, 1 dose, Starting on Nida 06/24/21 at 1306, Until Nida 06/24/21 at 1539, Pain, Routine, Recovery (only) Or acetaminophen (TYLENOL) tablet 1,000 mgJump to med 1,000 mg, oral, PRN, 1 dose, Starting on Nida 06/24/21 at 1306, Until Nida 06/24/21 at 1539, Pain, Routine, Recovery (only) documented in this encounter Orders Medications Ordered That Nish ht Not Have Been Administered Count Last Ordered Date First Ordered Date acetaminophen (TYLENOL) solu tion unit dose cup 995 mg 1 06/24/2021 acetaminophen (TYLENOL) tablet 1,000 mg 1 0 06/24/2021 atropine 0.1 mg/mL syringe 0.5 mg 1 021 bupivacaine (PF) (MARCAINE) 0.5% injection 1 06/24/2021 ibuprofen (MOTRIN) tablet 800 mg 1 06/24/20 21 lactated ringers (LR) infusion 1 06/24/2021 naloxone (NARCAN) injection 0.2 mg 1 2020 ondansetron (PF) (ZOFRAN) injection 4 mg 1 06/24/2021 Discharge Count Last Ordered Date First Orde red Date DISCHARGE PATIENT 1 06/24/2021 documented in this encounter Care Teams Agricultural Real Estate Agent Relationship Specialty Start Date End Date Sangita Nolasco MD PCP - General 06/24/21 documented as of this encounter
--- OUTSIDE RECORDS SUMMARY | 2024-11-26 13:58 | XMS_ITS | Encounter Summary ---
Author Organization [facility] Address [address] [place] [address] Care Team Providers Care Adon Name Role Phone Sangita Nolasco MD Primary Care Provider [phone] Reason for Referral * Office Procedure (Routine/Next Available) - Specialty Report Received Specialty Diagnoses / Procedures Referred By Contact Referred To Contact Physical Medicine and Rehab Diagnoses Right carpal tunnel syndrome Left carpal tunnel syndrome Procedures EMG/NERVE CONDUCTION STUDY Murtaza Liang MD Phone: tel: fax: [facility] Physical Medicine & Rehabilitation - [address] [place] [address] Phone: tel: fax: Referral ID Status Reason Start Date Expiration Date V isits Requested Visits Authorized [id number] Specialty Report Received 10/29/2021 1 1 Reason for Visit * Reason Comments Numbness Pain Score: 0-4, Rad iates: all 5 fingers, Duration: 06/24/21 Left wrist endoscopic carpal tunnel release, pain is getting better but still having pain with driving and opening bottles, and dropping things Pain Pain Score: 0-4, Rad iates: all 5 fingers, Duration: 06/24/21 Left wrist endoscopic carpal tunnel release, pain is getting better but still having pain with driving and opening bottles, and dropping things Encounter Details Date Type Department Care Team (Late st Contact Info) Description 10/29/2021 16:[address] [facility] Orthopedic Surgery - [address] [place] [address] Murtaza Liang MD [address] [place] [address] Right carpal tunnel syndrome (Primary Dx); Left carpal tunnel syndrome Social History Tobacco Use Types Packs/Day Years [...] - - Weight 81.2 kg (179 lb) 10/29/2021 1605 EST per pt Height 172.7 cm (5' 8) 10/29/2021 1605 EST per pt Body Mass Index 27.22 10/29/2021 1605 EST documented in this encounter Progress Notes * Murtaza Liang MD - 10/29/2021 1600 EST Chief complaint: Numbness and Pain of the Left Wrist (Pain Score: 0-4, Radiates: all 5 fingers, Duration: 06/24/21 Left wrist endoscopic carpal tunnel release, pain is getting better but still having pain with driving and opening bottles, and dropping things/) HPI: The patient returns today for recheck of his left wrist. He states that the wrist pain is gradually getting better. He rates his pain as a 0-4 out of 10. He has pain that radiates out to all 5 fingers. He feels weak in the left hand following his endoscopic carpal tunnel release which was performed on 06/24/2021. 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 He finds that he drops things and has difficulty opening bottles. Patient is having similar symptoms in his right hand. He describes numbness and tingling and all 5 fingers. He has not been wearing a wrist splint on the right side. The past medical, family and social history have been reviewed in the patient chart. OBJECTIVE: Ht 172.7 cm (68) Comment: per pt Wt 81.2 kg (179 lb) Comment: per pt BMI 27.22 kg/m?? Musculoskeletal: Left wrist and hand: The patient's carpal tunnel incision is well-healed. He still has some swelling through the palm of his hand although this is relatively mild. He has hypersensitivity through thepalm of the hand today. At rest he has normal sensation to light touch throughout the hand and has good capillary refill. Digital ranges of motion are full. No thenar atrophy is noted. Right wrist and hand: The patient has tenderness over the carpal tunnel. Wrist range of motion is full. Tinel's sign is positive over the carpal tunnel and he has a positive carpal compression test as well as a positive Phalen's test. At rest he has normal sensation to light touch throughout the hand and has good capillary refill. Digital range of motion are full. ASSESSMENT/PLAN: Encounter Diagnoses Name Primary? Right carpal tunnel syndrome Yes ??? Left carpal tunnel syndrome The patient still seems to be recovering following his left endoscopic carpal tunnel release. I expect that this will gradually get better. I did encourage him to be a little bit more aggressive withstrengthening. As soon as he is comfortable returning to work I am certainly comfortable with him returning. With regards to the right side I think getting an EMG/nerve conduction study to confirm if he has carpal tunnel syndrome makes sense. I have put in a referral to have the EMG/nerve conduction study performed. Orders Placed This Encounter Procedures ??? EMG/Nerve Conduction Study Concern for right carpal tunnel syndrome Previous testing positive for left CTS Order Specific Question: Permission to perform ultrasound if clinically relevant Answer: Yes Order Specific Question: Requesting Neuromuscular Junction Testing in Conjunction with EMG: Answer: Examiner's Discretion Order Specific Question: Release to Patient (Note: Choosing Manual Release will only block results from tests performed at [facility] and does not apply for Miscellaneous Test Order) Answer: Immediate I spent a total of 20 minutes on the date of this encounter meeting with the patient and reviewing documentation/coordinating care as described in the above note. documented in this encounter Plan of Treatment Scheduled Orders Name Type Priority Associated Diagnoses Orde r Schedule EMG/NERVE CONDUCTION STUDY Procedures Routine Right carpal tunnel syndrome Left carpal tunnel syndrome Ordered: 10/29/2021 documented as of this encounter Visit Diagnoses Diagnosis Right carpal tunnel syndrome- Primary Carpal tunnel syndrome Left carpal tunnel syndrome Carpal tunnel syndrome documented in this encounter Historical Medications * This list may reflect changes made after this encounter. multivit-min/iron/ folic/[id number] (HAIR, SKIN AND NAILS ADVANCED ORAL) Take by mouth. added in this encounter Care Teams Adon Relationship Specialty Start Date End Date Sangita Nolasco MD PCP - General 06/24/21 documented as of this encounter
--- OUTSIDE RECORDS SUMMARY | 2024-11-26 13:58 | XMS_ITS | Encounter Summary ---
Author Organization [facility] Address [address] [place] [address] Care Team Providers Care Glaze Wiper Name Role Phone Lasha Angelo MD Primary Care Provider [phone] Encounter Details Date Type Department Care Team (Late st Contact Info) Description 12/11/2020 14:00 EST Immunization [facility] [address] [place] [address] Social History Tobacco Use Types Packs/Day Years [...] documented as of this encounter Visit Diagnoses Not on filedocumented in this encounter Orders Immunization/Injection Count Last Ordered Date First Ordered Date COVID-19 MRNA VACCINE (PFIZE R COVID-19) PF 0.3 ML IM (16 YRS+) 1 12/11/2020 documented in this encounter Care Teams Glaze Wiper Relationship Specialty Start Date End Date Lasha Angelo MD PCP - General Family Medicine - Primary Care 01/09/20 06/23/21 documented as of this encounter
--- OUTSIDE RECORDS SUMMARY | 2024-11-26 13:58 | XMS_ITS | Encounter Summary ---
Author Organization [facility] Address [address] [place] [address] Care Team Providers Care Creel Hand Name Role Phone Lasha Angelo MD Primary Care Provider [phone] Reason for Visit * Reason Onset Date Comments Paperwork request 01/25/2021 Encounter Details Date Type Department Care Team (Late st Contact Info) Description 01/25/2021 Telephone [facility] Orthopedic Surgery - [facility] [address] [place], [place] [id number] Agusto Howell III, MD [address] [place] [address] Paperwork request () Social History Tobacco Use Types Packs/Day Years [...] on file documented as of this encounter Miscellaneous Notes * Telephone Encounter - Deven Cox - 01/27/2021 0929 EDT wc completed scanned faxed * Telephone Encounter - Fanny Castaneda - 01/25/2021 1550 EDT Rec'd request for medical information placed in WC box documented in this encounter Plan of Treatment Not on file documented as of this encounter Visit Diagnoses Not on filedocumented in this encounter Care Teams Creel Hand Relationship Specialty Start Date End Date Lasha Angelo MD PCP - General Family Medicine - Primary Care 01/09/20 06/23/21 documented as of this encounter
--- OUTSIDE RECORDS SUMMARY | 2024-11-26 13:58 | XMS_ITS | Encounter Summary ---
Author Organization [facility] Address [address] [place] [address] Care Team Providers Care Patient Observation Assistant Name Role Phone Lasha Angelo MD Primary Care Provider [phone] Reason for Visit * Reason Onset Date Comments Paperwork request 05/21/2020 Encounter Details Date Type Department Care Team (Late st Contact Info) Description 05/21/2020 Telephone [facility] Orthopedic Surgery - [facility] [address] [place] [address] Agusto Howell III, MD [address] [place] [address] Paperwork request Social History Tobacco Use Types Packs/Day Years [...] 15:02 EST Sexual Orientation Not on file COVID-19 Exposure Response Date Recorded In the last month, have you been in contact with someone who was confirmed or suspected to have Coronavirus / COVID-19? No / Unsure 04/21/2020 9:28 EDT documented as of this encounter Miscellaneous Notes * Telephone Encounter - Sun lGez - 05/21/2020 0932 EDT Received from [employer] request for work capabilities form for the upcoming 05/25/2020 appointment. Placed in Deven box. documented in this encounter Plan of Treatment Not on file documented as of this encounter Visit Diagnoses Not on filedocumented in this encounter Care Teams Patient Observation Assistant Relationship Specialty Start Date End Date Lasha Angelo MD PCP - General Family Medicine - Primary Care 01/09/20 06/23/21 documented as of this encounter
--- OUTSIDE RECORDS SUMMARY | 2024-11-26 13:58 | XMS_ITS | Encounter Summary ---
Author Organization [facility] Address [address] [place] [address] Care Team Providers Care Dragline Operator Helper Name Role Phone Lasha Angelo MD Primary Care Provider [phone] Encounter Details Date Type Department Care Team (Latest Contact Info) Description 04/17/2020 13:00 EDT Phlebotomy Only [facility] Mobile Testing [address] [place] [address] Rotator cuff syndrome, unspecified laterality (Primary Dx) Social History Tobacco Use Types Packs/Day Years Used Date Smoking Tobacco: Former Cigarettes Q uit: 01/03/1968 Smokeless Tobacco: Never Alcohol Use Standard Drinks/Week Comments Yes 1 (1 standard drink = 0.6 oz pur e alcohol) 1 glass nightly of Red wine Sex and Gender Information Value Date Recorded [...] 9:28 EDT documented as of this encounter Plan of Treatment Not on file documented as of this encounter Procedures Procedure Name Priority Date/Time Associated Diagnosis Comments ZZCOVID-19 TEST [facility] PCR Today 04/17/2020 12:55 EDT Rotator cuff syndrome, unspecified laterality COVID-19 TESTING Routine 04/17/2020 12:5 5 EDT Rotator cuff syndrome, unspecified laterality documented in this encounter Results * COVID-19 TEST [facility] PCR (04/17/2020 12:55 EDT) Swab ENTIRE NASOPHARYNX / Unknown Swab / Unknown 04/17/2020 12:55 EDT 04/17/2020 12:55 EDT us Agusto Howell III, MD MICROBIOLOGY - GENERAL ORD ERABLES Final Result [facility] [address] [place] [address] * COVID-19 TESTING (04/17/2020 12:55 EDT) COVID-19 rt-PCR Result Negative Negative 04/17/2020 17:51 EDT [facility] Comment: This test has not been FDA cleared or approved. This test has been authorized by FDA under an EUA for use by authorized laboratories. This test has been authorized only for detection of nucleic acid from 2019-nCoV, not for any other viruses or pathogens. This test is only authorized for the duration of the declaration that circumstances exist justifying the authorization of emergency use of in vitro diagnostic tests for detection and/or diagnosis of 2019-nCoV under section 564(b)(1) of Act, 21 U.S.C ?? 360bbb-3(b) (1), unless the authorization is terminated or revoked sooner. Negative results do not preclude 2019-nCoV infection and should not be used as the sole basis for treatment or other patient management decisions. Negative results must be combined with clinical observations, patient history, and epidemiological information. Performed on the Sezionher Fusion instrument Performing Lab [place] [facility] 04/17/2020 17:51 EDT [facility] Swab ENTIRE NASOPHARYNX / Unknown Swab / Unknown 04/17/2020 12:55 EDT 04/17/2020 12:55 EDT Agusto Howell III, MD MICROBIOLOGY - GENERAL ORD ERABLES Final Result [facility] [address] [place] [address] documented in this encounter Visit Diagnoses Diagnosis Rotator cuff syndrome, unspecified laterality- Primary documented in this encounter Additional Health Concerns Infection Onset Date Last Indicated Resolved Time R/O COVID-19 04/15/2020 04/15/2020 04/20/2020 22:1 6 EDT documented as of this encounter Care Teams Dragline Operator Helper Relationship Specialty Start Date End Date Lasha Angelo MD PCP - General Family Medicine - Primary Care 01/09/20 06/23/21 documented as of this encounter
--- OUTSIDE RECORDS SUMMARY | 2024-11-26 13:58 | XMS_ITS | Encounter Summary ---
Author Organization [facility] Address [address] [place] [address] Care Team Providers Care Wool Washer Feeder Name Role Phone Lasha Angelo MD Primary Care Provider [phone] Encounter Details Date Type Department Care Team (Late st Contact Info) Description 12/31/2020 13:40 EDT Immunization [facility] [address] [place] [address] Social History Tobacco Use Types Packs/Day Years [...] PF 0.3 ML IM (16 YRS+) 1 12/31/2020 documented in this encounter Care Teams Wool Washer Feeder Relationship Specialty Start Date End Date Lasha Angelo MD PCP - General Family Medicine - Primary Care 01/09/20 06/23/21 documented as of this encounter
--- OUTSIDE RECORDS SUMMARY | 2024-11-26 13:58 | XMS_ITS | Encounter Summary ---
Author Organization [facility] Address [address] [place] [address] Care Team Providers Care Supervisor Grounds Name Role Phone Lasha Angelo MD Primary Care Provider [phone] Reason for Visit * Reason Onset Date Comments Appointment Related 07/15/2020 Encounter Details Date Type Department Care Team (Late st Contact Info) Description 07/15/2020 Telephone [facility] [address] [place] [address] Agusto Howell III, MD [address] [place] [address] Appointment Related Social History Tobacco Use Types Packs/Day Years [...] encounter Miscellaneous Notes * Telephone Encounter - Kanwal Stanford MA - 07/15/2020 1517 EDT Called and gave Sera the instructions per Dr. Howell' message below ----- Message from Agusto Howell III, MD sent at 07/15/2020 14:51 EDT ----- The therapist is misunderstanding my instructions: Start elastic band strengthening: internal and external rotation with the arm at the side, low rowand biceps curl (see diagram) unless you had a massive repair in which case start at 16 weeks. ?? In your case start this at 12 weeks.:: That means - in this patient's case - those exercises listed should start at 12 weeks and not at 16weeks. Thanks! Agusto ----- Message ----- From: Kanwal Stanford MA Sent: 07/14/2020 15:06 EDT To: Agusto Howell III, MD Good afternoon Dr. Howell, PT called, his paper work stated start this at 12 weeks but there were no instructions. Sera Travis at [facility] [place] needs to know if he should be doing the 16 week Protocol? She has not started 16 week protocol but wants to verify. Is there something specific you wanted him to start such asisometrics or just continue with gentle ROM?? Please let me know and I will call her back before his next appointment. Kanwal Tobias documented in this encounter Plan of Treatment Not on file documented as of this encounter Visit Diagnoses Not on filedocumented in this encounter Care Teams Supervisor Grounds Relationship Specialty Start Date End Date Lasha Angelo MD PCP - General Family Medicine - Primary Care 01/09/20 06/23/21 documented as of this encounter
--- OUTSIDE RECORDS SUMMARY | 2024-11-26 13:58 | XMS_ITS | Encounter Summary ---
Author Organization [facility] Address [address] [place] [address] Care Team Providers Care Director Of Corporate Sales Name Role Phone Sangita Nolasco MD Primary Care Provider [phone] Reason for Visit * Reason Comments Follow-up Pain Score: 3-6, Rad iates: up arm, Duration: 1 yr Encounter Details Date Type Department Care Team (Late st Contact Info) Description 11/26/2021 11:00 EST Office Visit [facility] Orthopedic Surgery - [facility] [address] [place] [address] Murtaza Liang MD [address] [place] [address] Right carpal tunnel syndrome (Primary [...] Body Mass Index 27.22 11/26/2021 1109 EST documented in this encounter Progress Notes * Murtaza Liang MD - 11/26/2021 1100 EST Chief complaint: Follow-up of the Right Wrist (Pain Score: 3-6, Radiates: up arm, Duration: 1 yr/) HPI: The patient returns today for follow-up of his right wrist. He continues to have pain at the wrist that he rates as a 3-6 out of 10. Symptoms have been going on for a year. He has pain that radiates up his arm. He has numbness and tingling to his thumb, index, and middle fingers. The patient recently had an EMG/nerve conduction study performed by Dr. Hernandez. That test demonstrates moderate right carpal tunnel syndrome. There is no evidence of ulnar neuropathy at the wrist or elbow and no evidence of polyneuropathy. The past medical, family and social history have been reviewed in the patient chart. OBJECTIVE: Ht 172.7 cm (68) Wt 81.2 kg (179 lb) BMI 27.22 kg/m?? Musculoskeletal: Right wrist and hand: The patient has tenderness over the carpal tunnel. Wrist range of motion is full. Phalen's test is positive. Carpal compression test is positive. The patient has a positive Tinel's sign over the carpal tunnel. At rest the patient has normal sensation to light touch throughout the hand and has good capillary refill. Digital ranges of motion are full. ASSESSMENT/PLAN: Encounter Diagnoses Name Primary? Right carpal tunnel syndrome Yes ??? Left carpal tunnel syndrome The patient has right carpal tunnel syndrome and has not responded to conservative treatment of hiscarpal tunnel syndrome on the right side. He is still recovering from his left endoscopic carpal tunnel release that was done in June but feels like it is certainly moving in the right direction. 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 I think in the next month or so he should be able to move forward with surgical intervention for his carpal tunnel syndrome on the right side. Our plan is to do an endoscopic carpal tunnel release. SURGICAL RISKS AND BENEFITS: The patient understands that the risks and complications of a surgicalapproach include, but are not limited to: Infection, deep venous thrombosis, pulmonary embolism, and , stiffness, nerve injury, anesthetic complications, blood loss, failure to relieve the pain,and allergic reactions. No orders of the defined types were placed in this encounter. I spent a total of 30 minutes on the date of this encounter meeting with the patient and reviewing documentation/coordinating care as described in the above note. documented in this encounter Plan of Treatment Not on file documented as of this encounter Visit Diagnoses Diagnosis Right carpal tunnel syndrome- Primary Carpal tunnel syndrome Left carpal tunnel syndrome Carpal tunnel syndrome documented in this encounter Care Teams Director Of Corporate Sales Relationship Specialty Start Date End Date Sangita Nolasco MD PCP - General 06/24/21 documented as of this encounter
--- OUTSIDE RECORDS SUMMARY | 2024-11-26 13:58 | XMS_ITS | Encounter Summary ---
Author Organization [facility] Address [address] [place] [address] Care Team Providers Care Contract Clerk Name Role Phone Sangita Nolasco MD Primary Care Provider [phone] Reason for Visit * Reason Onset Date Comments Letter for School/Work 10/22/2021 asking fo r an extension on his work status report Encounter Details Date Type Department Care Team (Late st Contact Info) Description 10/22/2021 Telephone [facility] [address] [place] [address] Murtaza Liang MD [address] [place] [address] Letter for School/Work (asking for an extension on his work status report) Social History Tobacco Use Types Packs/Day Years [...] encounter Miscellaneous Notes * Telephone Encounter - Murtaza Liang MD - 10/25/2021 0819 EST Out of work for 1 week I think would be reasonable and then the patient can return to work with no restrictions. * Telephone Encounter - Sandy Garcia - 10/22/2021 1359 EST Patient states after he had an evaluation yesterday w/ a physician in [place], is having a lotof pain in left wrist due to the manipulation is due to start work at 10/20, can this be extended. Would like faxed to him directly @ [phone] documented in this encounter Plan of Treatment Not on file documented as of this encounter Visit Diagnoses Not on filedocumented in this encounter Care Teams Contract Clerk Relationship Specialty Start Date End Date Sangita Nolasco MD PCP - General 06/24/21 documented as of this encounter
--- OUTSIDE RECORDS SUMMARY | 2024-11-26 13:58 | XMS_ITS | Encounter Summary ---
Author Organization [facility] Address [address] [place] [address] Care Team Providers Care Field Operations Manager Name Role Phone Lasha Angelo MD Primary Care Provider [phone] Reason for Visit * Reason Comments Post-OP Follow Up 04/21/2020: LEFT supra spinatus, infraspinatus and subscapularis repair, coracoplasty, capsular release, lysis of subdeltoid adhesions Post-OP Follow Up Encounter Details Date Type Department Care Team (Latest Contact Info) Description 05/25/2020 15:45 EDT Post-op Visit [facility] Orthopedic Surgery - [address] [place] [address] Agusto Howell III, MD [address] [place] [address] Secondary adhesive capsulitis of left shoulder (Primary Dx); Surgical aftercare, musculoskeletal system Social History Tobacco Use Types Packs/Day Years [...] - Inhaled Oxygen Concentration - - Weight 73 kg (161 lb) 05/25/2020 1558 EDT per pt Height 172.7 cm (5' 8) 05/25/2020 1558 EDT per pt Body Mass Index 24.48 05/25/2020 1558 EDT documented in this encounter Progress Notes * Agusto Howell III, MD - 05/25/2020 1545 EDT Barrett Salvador is now roughly 4 weeks s/p 04/21/2020 LEFT shoulder arthroscopic supraspinatus, infraspinatus and subscapularis repair, cortical plasty, capsular release and lysis of adhesions. Fevers, chills, night sweats, erythema, drainage from the incisions or progressively increasing pain is denied. Numbness and tingling are denied. There is no sense of shoulder instability. The patient denies significant increased swelling in the involved extremity. At this point this patient is pleased with their progress so far. I have reviewed and verified the review of systems information which has been gathered by my coroner/medical examiner and is located within this note. REVIEW OF SYSTEMS: Yes No Yes No Fever/Chills x Joint pain x Fatigue x Muscle pain x Night sweats x Morning stiffness x Weight change x If yes, duration Gain or loss? Numbness/tingling x Headaches x If yes, where? Left hand Dizziness x Muscle weakness x Chest pain x Excessive thirst x Shortness of breath x Change in mood x Cough x Nervous or anxious x Nausea/vomiting x Sad or depressed x Abdomnial pains/cramps x Excessive bruising x Heartburn/Reflux x Urinary Changes x Rash x Balance Issues x Objective: This patient is alert, awake and cooperative. This patient is normocephalic. This patient's mood is appropriate and is in no acute distress. This patient has unlabored breathing with a normal rate and rhythm. This patient has a regular pulse. The incisions are clean, dry and not inflamed. There is no significant ecchymosis, unusual swelling or induration With the scapula stabilized pure glenohumeral motion can be passively measured. The affected shoulder has 40 degrees of passive forward elevation, 60 degrees of passive abduction in the scapular plane and -20 degrees of external rotation at 0 of abduction. The elbow has full and supple range of motion. There is no swelling in the forearm wrist hand or fingers. The upper extremity is grossly neurovascularly intact distal to the surgical site. Assessment: Stable status post shoulder surgery. Appropriate fibrous capsulitis with secondary impingement which is slowly improving. Plan: This patient will continue to wear the sling until 6 weeks postoperatively. I have given this patient additional exercises to do today and advised regarding activities that need to be avoided in order to minimize the odds of damaging the repair. At six weeks postoperatively the sling may be removed and active range of motion begun. I've also advised of activities that need to be avoided at that time to minimize the odds of damaging the repair as well. At six weeks post surgery NSAIDs maybe utilized if needed. Formal physical therapy at 6 weeks post surgery. This note was prepared with the aid of voice recognition technology. The attempts at proofreading sometimes miss mistakes. All attempts are made to reproduce pertinent clinical information but sometimes grammatical mistakes and inappropriate word spelling occurs. documented in this encounter Plan of Treatment Not on file documented as of this encounter Visit Diagnoses Diagnosis Secondary adhesive capsulitis of left shoulder- Primary Surgical aftercare, musculoskeletal system Aftercare following surgery of the musculoskeletal system, NEC documented in this encounter Historical Medications * This list may reflect changes made after this encounter. APPLE CIDER VINEGAR ORAL Take by mouth daily. added in this encounter Care Teams Field Operations Manager Relationship Specialty Start Date End Date Lasha Angelo MD PCP - General Family Medicine - Primary Care 01/09/20 06/23/21 documented as of this encounter
--- OUTSIDE RECORDS SUMMARY | 2024-11-26 13:58 | XMS_ITS | Encounter Summary ---
Author Organization [facility] Address [address] [place] [address] Care Team Providers Care Medical Office Clerk Name Role Phone Lasha Angelo MD Primary Care Provider [phone] Reason for Visit * Reason Comments Post-OP Follow Up Encounter Details Date Type Department Care Team (Latest Contact Info) Description 04/30/2020 15:30 EDT Post-op Visit [facility] Orthopedic Surgery - [address] [place] [address] Murtaza Negro, [facility] [place] [address] Secondary adhesive capsulitis of left shoulder (Primary [...] 9:28 EDT documented as of this encounter Last Filed Vital Signs Vital Sign Reading Time Taken Comments Blood Pressure - - Pulse - - Temperature - - Respiratory Rate - - Oxygen Saturation - - Inhaled Oxygen Concentration - - Weight 73 kg (161 lb) 04/30/2020 1532 EDT Height 172.7 cm (5' 7.99) 04/30/2020 1532 EDT Body Mass Index 24.49 04/30/2020 1532 EDT documented in this encounter Progress Notes * Rita Smith MA - 04/30/2020 1530 EDT REVIEW OF SYSTEMS: Yes No Yes No Fever/Chills x Joint pain x Fatigue x Muscle pain x Night sweats x Morning stiffness x Weight change x If yes, duration Gain or loss? Numbness/tingling x Headaches x If yes, where? Dizziness x Muscle weakness x Chest pain x Excessive thirst x Shortness of breath x Change in mood x Cough x Nervous or anxious x Nausea/vomiting x Sad or depressed x Abdomnial pains/cramps x Excessive bruising x Heartburn/Reflux x Urinary Changes x Rash x Balance Issues x Post operative sutures were removed from surgical site in a sterile fashion. Steri strips and a drysterile dressing were applied. Patient was educated on future care of incision site, to include gentle cleaning with soap and water, no immersion in water, tub, pool, or Jacuzzi until incisions are fully closed, change dressing every 1-2 days, or more often if drainage is present or dressing becomes wet, call if signs of infection occur. Patient Education Topic: LEFT SHOULDER Method: Verbal Taught to: Patient Barriers: None Outcomes: independent Type of DME:Shoulder Immoblizer CMS intact prior to DME and after DME placement: Yes Instruct on care of DME: Yes Verbalized Understanding: Yes Patient Education Topic: Durable Medical Equipment Method: Verbal Taught to: Patient Barriers: None Outcomes: independent Patient has received and signed Orthopedics DME Patient Consent Form. Copy of consent form will be placed in the scans section of paper chart. TOM MACHADO PA-C was immediately available during the entire time the service was being provided. * Murtaza Negro PA-C - 04/30/2020 1530 EDT CC: Postop check HPI: The patient is a 74-year-old male who is one-week status post Left shoulder: 1. Evaluation under anesthesia 2. Arthroscopic capsular release 3. Arthroscopic lysis subdeltoid adhesions 4. Arthroscopic subscapularis repair 5. Arthroscopic revision supraspinatus repair with removal of sutures 6. Arthroscopic infraspinatus repair 7. Arthroscopic coracoplasty with Dr. Howell. He is comfortable and doing well. For full Medical, Surgical, Family, and Social histories, Review of Systems, Medications and Allergies, please see those sections of this encounter in the electronic chart which I have personally reviewed. Ht 172.7 cm (67.99) Wt 73 kg (161 lb) BMI 24.49 kg/m?? PE: Alert and oriented X 3, well-nourished and in no acute distress Head: atraumatic, normocephalic Respiratory Effort: breathing unlabored, regular rate and rhythm Mood/Affect: mood normal, affect appropriate Left shoulder exam revealed incisions that are healing well with no erythema or drainage. There is mild soft tissue swelling and ecchymosis present. No sign of DVT or infection. Neurovascular exam bilateral upper extremities: sensation intact to light touch throughout the axillary, musculocutaneous, radial, ulnar and median nerves and good distal extremity perfusion and 2+ radial and ulnar pulses Impression: Encounter Diagnoses Name Primary? Secondary adhesive capsulitis of left shoulder Yes ??? Surgical aftercare, musculoskeletal system Physical therapy RX provided with a specific protocol which will begin when the patient is 6 weeks postop The patient demonstrated an understanding of the difference between active and passive range of motion. The patient understands that active range of motion of the operative shoulder can disrupt the rotator cuff repair. I demonstrated gentle passive external rotation stretching 20 degrees beyond straight ahead and pendulums (10 days postop) and table slides (6 week postop). The patient will followup with Dr. Howell in 3 weeks. Call if any problems, questions or concerns and return to clinic or call if symptoms worsen or do not improve Murtaza Negro PA-C 04/30/2020 15:48 Dr. Rodriguez was the attending physician available in the clinic today if needed. A consultation was not required. documented in this encounter Plan of Treatment Not on file documented as of this encounter Visit Diagnoses Diagnosis Secondary adhesive capsulitis of left shoulder- Primary Surgical aftercare, musculoskeletal system Aftercare following surgery of the musculoskeletal system, NEC documented in this encounter Care Teams Medical Office Clerk Relationship Specialty Start Date End Date Lasha Angelo MD PCP - General Family Medicine - Primary Care 01/09/20 06/23/21 documented as of this encounter
--- OUTSIDE RECORDS SUMMARY | 2024-11-26 13:58 | XMS_ITS | Encounter Summary ---
Author Organization [facility] Address [address] [place] [address] Care Team Providers Care Pet Care Attendant Name Role Phone Lasha Angelo MD Primary Care Provider [phone] Reason for Visit * Reason Onset Date Comments Other 04/29/2020 PAPERS Encounter Details Date Type Department Care Team (Late st Contact Info) Description 04/29/2020 Telephone [facility] Orthopedic Surgery - [address] [place] [address] Agusto Howell III, MD [address] [place] [address] Other ( PAPERS) Social History Tobacco Use Types Packs/Day Years [...] * Telephone Encounter - Deven Cox - 05/06/2020 0745 EDT Completed faxed scanned * Telephone Encounter - Fanny Castaneda - 04/29/2020 1538 EDT Rec'd papers from travelers to be completed by [facility], placed in WC box documented in this encounter Plan of Treatment Not on file documented as of this encounter Visit Diagnoses Not on filedocumented in this encounter Care Teams Pet Care Attendant Relationship Specialty Start Date End Date Lasha Angelo MD PCP - General Family Medicine - Primary Care 01/09/20 06/23/21 documented as of this encounter
--- OUTSIDE RECORDS SUMMARY | 2024-11-26 13:58 | XMS_ITS | Encounter Summary ---
Author Organization [facility] Address [address] [place] [address] Care Team Providers Care Pipe [place] Sawyer Name Role Phone Lasha Angelo MD Primary Care Provider [phone] Reason for Visit * Reason Comments Pain Encounter Details Date Type Department Care Team (Latest Contact Info) Description 01/11/2021 14:15 EDT Office Visit [facility] Orthopedic Surgery - [facility] [address], [place] [id number] Agusto Howell III, MD [address] [place] [address] Secondary adhesive capsulitis of left shoulder (Primary Dx); Surgical aftercare, musculoskeletal system; Left carpal tunnel syndrome Social History Tobacco [...] - - Weight 73 kg (161 lb) 01/11/2021 1413 EDT per pt Height 172.7 cm (5' 8) 01/11/2021 1413 EDT per pt Body Mass Index 24.48 01/11/2021 1413 EDT documented in this encounter Progress Notes * Agusto Howell III, MD - 01/11/2021 1415 EDT Subjective: Barrett Salvador is a 75 y.o. ambidextrous male who is 9 months status post 04/21/2020left shoulder arthroscopic supraspinatus, infraspinatus and subscapularis repair, coracoplasty, capsular release and lysis of adhesions. At his last visit with me he was 6 months post surgery and doing well in terms of his shoulder but was complaining of numbness and pain in his left hand. He was relating this to his left shoulder surgery done in April but he had not complained of it to me until October. At that time I sent him for el ectrodiagnostic studies. Those were done on 01/08/[address] Natalie Russell who diagnosed a moderate to severe carpal tunnel syndrome. Fevers, chills, night sweats, erythema, drainage from the incisions or progressively increasing pain is denied. Numbness and tingling are denied. There is no sense of shoulder instability. The patient denies significant increased swelling in the involved extremity. He continues to do reasonably well with his left shoulder surgery. He has an occasional ache with repetitive use overhead and does still feel some slight weakness overhead but is very happy with his progress. 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 His main complaint continues to be hisleft hand. The patient notes mild pain and is not currently taking any medications for pain from this surgery.The patient states they took 325 mg of aspirin 1 times per day for 30 days post operatively. The patient does not wear a brace or sling. The patient has begun Physical Therapy. 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 I have reviewed the past medical history, past family history, social history outlined in this chart . Objective: This patient is alert, awake and cooperative. This patient is normocephalic. This patient's mood is appropriate and is in no acute distress. This patient has unlabored breathing with a normal rate and rhythm. The operative shoulder has 180 degrees of forward elevation, 180 degrees of abduction in the scapular plane, 30 degrees of external rotation at 0 of abduction and internal rotation to L3. The contralateral shoulder has 180 degrees of forward elevation, 180 degrees of abduction in the scapular plane, 40 degrees of external rotation at 0 degrees of abduction and internal rotation to L1. The affected shoulder has 4/5 strength with contraction of the supraspinatus, 4+/5 strength with contraction of the subscapularis, 4+/5 strength with contraction of the infraspinatus, 4+/5 strength with contraction of the biceps, 4+/5 strength with contraction of the deltoid and 4+/5 strength with contraction of the serratus anterior, all without pain. The elbow has full and supple range of motion. There is no swelling in the forearm wrist hand or fingers. The upper extremity is grossly neurovascularly intact distal to the surgical site except for some mild wasting in his left thenar eminence. He is a negative Phalen's test but a positive Tinel's test over the carpal tunnel. His fingers are pink and warm with good capillary refill.. Assessment: Stable status post left rotator cuff repair with some mild residual secondary adhesive capsulitis and mild residual weakness as might be expected. This is not functionally limiting him at this time however. He does have limiting symptoms from his left carpal tunnel syndrome. Plan: I spent a total of 20 minutes on the date of this encounter meeting with the patient and reviewing documentation/coordinating care as described in the above note.No procedures were performed at the time of the visit. 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 I have referred him to Murtaza Liang MD for consideration of a left carpal tunnel release. I will see him back for his shoulder on an as-needed basis. He has reached maximum medical improvement in terms of his left shoulder reinjury. This note was prepared with the aid of voice recognition technology. The attempts at proofreading sometimes miss mistakes. All attempts are made to reproduce pertinent clinical information but sometimes grammatical mistakes and inappropriate word spelling occurs documented in this encounter Plan of Treatment Not on file documented as of this encounter Visit Diagnoses Diagnosis Secondary adhesive capsulitis of left shoulder- Primary Surgical aftercare, musculoskeletal system Aftercare following surgery of the musculoskeletal system, NEC Left carpal tunnel syndrome Carpal tunnel syndrome documented in this encounter Care Teams Pipe [place] Sawyer Relationship Specialty Start Date End Date Lasha Angelo MD PCP - General Family Medicine - Primary Care 01/09/20 06/23/21 documented as of this encounter
--- OUTSIDE RECORDS SUMMARY | 2024-11-26 13:58 | XMS_ITS | Encounter Summary ---
Author Organization [facility] Address [address] [place] [address] Care Team Providers Care Kickboxing Instructor Name Role Phone Lasha Angelo MD Primary Care Provider [phone] Encounter Details Date Type Department Care Team (Late st Contact Info) Description 09/21/2020 Orders Only [facility] Orthopedic Surgery - [facility] [address] [place] [address] Agusto Howell III, MD [address] [place] [address] Social History Tobacco Use Types Packs/Day Years [...] on filedocumented in this encounter Care Teams Kickboxing Instructor Relationship Specialty Start Date End Date Lasha Angelo MD PCP - General Family Medicine - Primary Care 01/09/20 06/23/21 documented as of this encounter
--- OUTSIDE RECORDS SUMMARY | 2024-11-26 13:58 | XMS_ITS | Encounter Summary ---
Author Organization [facility] Address [address] [place] [address] Care Team Providers Care Business And Marketing Teacher Name Role Phone Lasha Angelo MD Primary Care Provider [phone] Reason for Visit * Reason Comments Numbness Pain Score: 0-9, Rad iates: 1st-5th fingers and up to mid forearm, Duration: 2 months Pain Pain Score: 0-9, Rad iates: 1st-5th fingers and up to mid forearm, Duration: 2 months Encounter Details Date Type Department Care Team (Late st Contact Info) Description 06/18/2021 15:45 EDT Office Visit [facility] Orthopedic Surgery - [address] [place] [address] Murtaza Liang MD [address] [place] [address] Left carpal tunnel syndrome (Primary Dx); Right carpal tunnel syndrome Social History Tobacco Use [...] - - Weight 73 kg (161 lb) 06/18/2021 1542 EDT per pt Height 172.7 cm (5' 8) 06/18/2021 1542 EDT per pt Body Mass Index 24.48 06/18/2021 1542 EDT documented in this encounter Progress Notes * Murtaza Liang MD - 06/18/2021 1545 EDT Chief complaint: Numbness and Pain of the Right Wrist (Pain Score: 0-9, Radiates: 1st-5th fingers and up to mid forearm, Duration: 2 months/) HPI: The patient is a 75-year-old osmbf-qzbb-lqfqphfz man who presents today with bilateral hand numbness and tingling. The right side is worse than the left. He has tried wrist splinting for the right wrist with no real improvement in symptoms. He rates his right wrist pain as a 0-9 out of 10. He has pain that radiates up to his thumb, index, middle, and ring fingers associated with numbness andtingling although he does get pain in all of the digits. Pain also radiates to mid forearm. Symptoms have been going on for about 2 months now. The past medical, family and social history have been reviewed in the patient chart. OBJECTIVE: Ht 172.7 cm (68) Comment: per pt Wt 73 kg (161 lb) Comment: per pt BMI 24.48 kg/m?? Psych: He is alert and oriented x 3 with normal affect. Constitutional: He is well-developed and in no significant distress. Eyes: Sclerae clear. Heart: Regular rate and rhythm Resp: Breathing is regular and nonlabored without audible wheezing. Musculoskeletal: Right wrist and hand: Tenderness over the carpal tunnel. Wrist range of motion is full. Tinel's sign is positive over the carpal tunnel. Carpal compression test is positive and the patient has a positive Phalen's test almost immediately. He has digital ranges of motion are full. At rest he has normal sensation to light touch throughout the hand and has good capillary refill. No thenar atrophy is noted. Left wrist and hand: Tenderness over the carpal tunnel. Wrist range of motion is full. Tinel's signis positive over the carpal tunnel. Carpal compression test is positive and the patient has a positive Phalen's test at 10 seconds. He has digital ranges of motion are full. At rest he has normal sensation to light touch throughout the hand and has good capillary refill. No thenar atrophy is noted. ASSESSMENT/PLAN: Encounter Diagnoses Name Primary? Left carpal tunnel syndrome Yes ??? Right carpal tunnel syndrome The patient has bilateral carpal tunnel syndrome with the right side being worse than the left. He has not tried a wrist splint for the left side and I think doing that at night would be helpful for him. With regards to the right side the patient would like to move forward with surgical intervention. Our plan is to do a right endoscopic carpal tunnel release under a forearm Thierno block. All of his questions were answered today with regards to that surgery. SURGICAL RISKS AND BENEFITS: The patient understands that the risks and complications of a surgicalapproach include, but are not limited to: Infection, deep venous thrombosis, pulmonary embolism, and , stiffness, nerve injury, anesthetic complications, blood loss, failure to relieve the pain,and allergic reactions. Orders Placed This Encounter Procedures ??? Cock-Up Wrist Splint (L3908) Order Specific Question: Print Script? Answer: No Order Specific Question: Sig: Answer: wear at night only I spent a total of 30 minutes on the date of this encounter meeting with the patient and reviewing documentation/coordinating care as described in the above note. documented in this encounter Plan of Treatment Not on file documented as of this encounter Visit Diagnoses Diagnosis Left carpal tunnel syndrome- Primary Carpal tunnel syndrome Right carpal tunnel syndrome Carpal tunnel syndrome documented in this encounter Orders Equipment Count Last Ordered Date First Orde red Date COCK-UP WRIST SPLINT (L3908) 1 06/18/2021 documented in this encounter Care Teams Business And Marketing Teacher Relationship Specialty Start Date End Date Lasha Angelo MD PCP - General Family Medicine - Primary Care 01/09/20 06/23/21 documented as of this encounter
--- OUTSIDE RECORDS SUMMARY | 2024-11-26 13:58 | XMS_ITS | Encounter Summary ---
Author Organization [facility] Address [address] [place] [address] Care Team Providers Care Centrifugal Extractor Operator Name Role Phone Lasha Angelo MD Primary Care Provider [phone] Encounter Details Date Type Department Care Team (Latest Contact Info) Description 04/21/2020 Travel Social History Tobacco Use Types Packs/Day Years [...] on filedocumented in this encounter Care Teams Centrifugal Extractor Operator Relationship Specialty Start Date End Date Lasha Angelo MD PCP - General Family Medicine - Primary Care 01/09/20 06/23/21 documented as of this encounter
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
--- OUTSIDE RECORDS SUMMARY | 2024-11-26 13:58 | XMS_ITS | Encounter Summary ---
Author Organization [facility] Address [address] [place] [address] Care Team Providers Care Exterior Designer Name Role Phone Lasha Angelo MD Primary Care Provider [phone] Reason for Visit * Reason Comments Follow-up Encounter Details Date Type Department Care Team (Latest Contact Info) Description 08/17/2020 16:00 EST Office Visit [facility] Orthopedic Surgery - [facility] [address] [place] [address] Agusto Howell III, MD [address] [place] [address] Tear of left supraspinatus tendon (Primary Dx); Strain of left trapezius muscle, subsequent encounter; Secondary adhesive capsulitis of left shoulder; Partial tear of subscapularis tendon, left, subsequent encounter; Surgical aftercare, musculoskeletal system Social History Tobacco [...] as of this encounter Progress Notes * Agusot Howell III, MD - 08/17/2020 0000 EST [facility] ORTHOPEDIC SURGERY - [address] PROGRESS / FOLLOWUP NOTE - 08/17/2020 SUBJECTIVE: This patient is now roughly 4 months status post left shoulder revision supraspinatus repair and subscapularis repair. 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 He comes in today noting he is doing quite well and is anxious to start trying to get back to work in a gradual capacity. He has been attending physical therapy and exercising on his own. He notes some discomfort, particularly when he tries to use the arm aggressively. He has some pain in his hand and some numbness and tingling, which oddly enough seems to be helped quite a bit by deep massage of his scapula. 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 Once again, the patient thinks he can return to work right away, but just on a part-time capacity to start with. OBJECTIVE: He is well-developed and well-nourished and has a normal mood and affect. He is breathing with a regular rate and rhythm. He has a regular pulse. His left shoulder incisions are clean, dry and not inflamed. There is no swelling in his left arm, the left upper extremity. He has 180 degrees of active forward elevation bilaterally, 180 degrees of active abduction in the scapular plane bilaterally, 20 degrees of active external rotation at 0 degrees, abduction on the left compared to 40 degrees on the right and internal rotation is to L5 on the left and S1 on the right. He has 4/5 strength of supraspinatus and infraspinous and traction on the left without focal discomfort. He has 5/5 subscapularis, deltoid, biceps, teres minor and serratus strength on the left. He has intact interosseous muscle strength in his left hand and a negative left cervical compression test. ASSESSMENT: 1. Stable 4 month status post left revision supraspinatus repair and subscapularis repair with no evidence at this time of tendon repair failure. 2. 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 3. He has mild, secondary capsulitis, which might likely cause some mild impingement. 4. Left hand ulnar distribution numbness, which appears to be improving for some reason with scapular massage. Intact motor function of his left hand. PLAN: 1. He will therefore continue with his physical therapy, progressing his flexibility and strengthening without restrictions. 2. 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 3. I will see him back at 6 months post-surgery or supraspinatus deteriorating. 4. He will let me know if his left hand numbness does not continue to improve. Agusto Howell III, MD / Dictation ID: [id number] cc: documented in this encounter Plan of Treatment Not on file documented as of this encounter Visit Diagnoses Diagnosis Tear of left supraspinatus tendon- Primary Strain of left trapezius muscle, subsequent encounter Secondary adhesive capsulitis of left shoulder Partial tear of subscapularis tendon, left, subsequent encounter Surgical aftercare, musculoskeletal system Aftercare following surgery of the musculoskeletal system, NEC documented in this encounter Care Teams Exterior Designer Relationship Specialty Start Date End Date Lasha Angelo MD PCP - General Family Medicine - Primary Care 01/09/20 06/23/21 documented as of this encounter
--- OUTSIDE RECORDS SUMMARY | 2024-11-26 13:58 | XMS_ITS | Encounter Summary ---
Author Organization [facility] Address [address] [place] [address] Care Team Providers Care Ironing Machine Operator Name Role Phone Lasha Angelo MD Primary Care Provider [phone] Reason for Visit * Vascular Lab (Routine) - Closed Specialty Diagnoses / Procedures Referred By Nelia sanford Referred To Contact Diagnoses Varicose veins of right lower extremity with inflammation Procedures US VARICOSE VEIN DUPLEX Anthony Farr MD Referral ID Status Reason Start Date Expiration Date Visits Re quested Visits Authorized [id number] Closed 11/27/2019 1 1 Encounter Details Date Type Department Care Team (Latest Contact Info) Description 09/04/2020 11:30 EST Ancillary Procedure Vascular Surgery and Endovascular Therapy - [facility] [address], [place] [id number] Varicose veins of right lower extremity with inflammation Social History Tobacco Use Types Packs/Day Years [...] Procedure Name Priority Date/Time Associated Diagnosis Comments US VARICOSE VEIN DUPLEX RIGHT Routine 09/04/2020 9:08 EST Varicose veins of right lower extremity with inflammation documented in this encounter Results * US VARICOSE VEIN DUPLEX RIGHT (09/04/2020 9:08 EST) Right GSJ bailey 0.58 cm MERGE CARDIO Right GSMT bailey 0.54 cm MERGE CARDIO Right GSDT bailey 0.54 cm MERGE CARDIO Right GSK bailey 0.46 cm MERGE CARDIO Right [facility] bailey 0.36 cm MERGE CARDIO Anatomical Region Laterality Modality Vascular Ultrasound Narrative 10/02/2020 11:43 EST ?No evidence of deep or superficial venous thrombosis in the right lower extremity. ?Segmental reflux in the right femoral vein. Reflux in the right greater saphenous vein. No significant reflux in the right popliteal and short saphenous veins. Right Lower Venous The right femoral vein in the proximal thigh had 0.5 to 2 seconds of reflux. Right Saphenous Venous The right saphenofemoral junction had 0.5 to 2 seconds of reflux.The mid thigh segment of the right greater saphenous vein had more than 2 seconds of reflux. This segment courses superficially. The distal thigh segment of the great saphenous vein had more than 2 seconds of reflux. This segment courses superficially. The knee segment of the great saphenous vein had more than 2 seconds of reflux.The mid calf segment of the right small saphenous vein had no significant reflux. Right Lower Venous Other The right external iliac, common femoral, proximal greater saphenous, proximal profunda femoris, femoral, popliteal, peroneal, and posterior tibial veins demonstrate normal Doppler flow/waveforms and compression. 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 Venous HPI and Indications Painful right varicosities Venous Past Medical History Family history. Anthony Farr MD IMG US VASCULAR ORDERABLE S Final Result documented in this encounter Visit Diagnoses Diagnosis Varicose veins of right lower extremity with inflammation Varicose veins of lower extremities with inflammation documented in this encounter Care Teams Ironing Machine Operator Relationship Specialty Start Date End Date Lasha Angelo MD PCP - General Family Medicine - Primary Care 01/09/20 06/23/21 documented as of this encounter
--- OUTSIDE RECORDS SUMMARY | 2024-11-26 13:58 | XMS_ITS | Encounter Summary ---
Author Organization [facility] Address [address] [place] [address] Care Team Providers Care Machine Boss Name Role Phone Sangita Nolasco MD Primary Care Provider [phone] Reason for Visit * Reason Onset Date Comments Paperwork request 09/24/2021 [employer] Short Term Continuance of disability form Encounter Details Date Type Department Care Team (Late st Contact Info) Description 09/24/2021 Telephone [facility] Orthopedic Surgery - [address] [place] [address] Murtaza Liang MD [address] [place] [address] Paperwork request ([place] Short Term Continuance of disability form) Social History Tobacco Use Types Packs/Day Years [...] encounter Miscellaneous Notes * Telephone Encounter - Melina Ramos - 10/05/2021 0921 EST Received completed paperwork from Clinic on 10/05/21. Faxed to [employer] at [phone] on 10/05/21 Scanned into patients chart on 10/05/21 * Telephone Encounter - Melina Ramos - 09/30/2021 0942 EST Received Disability paperwork from [place]. Received 09/30/21. Prefilled out, labeled appropriately and given to clinic for completion on 09/30/21. Melina Ramos * Telephone Encounter - Sandy Garcia - 09/24/2021 1327 EST Received Form, labelled and put in melina's box documented in this encounter Plan of Treatment Not on file documented as of this encounter Visit Diagnoses Not on filedocumented in this encounter Care Teams Machine Boss Relationship Specialty Start Date End Date Sangita Nolasco MD PCP - General 06/24/21 documented as of this encounter
--- OUTSIDE RECORDS SUMMARY | 2024-11-26 13:58 | XMS_ITS | Encounter Summary ---
Author Organization [facility] Address [address] [place] [address] Care Team Providers Care Qc Tech Name Role Phone Sangita Nolasco MD Primary Care Provider [phone] Reason for Visit * Reason Comments Pain * Office Procedure (Routine/Next Available) - Specialty Report Received Specialty Diagnoses / Procedures Referred By Contact Referred To Contact Physical Medicine and Rehab Diagnoses Right carpal tunnel syndrome Left carpal tunnel syndrome Procedures EMG/NERVE CONDUCTION STUDY Murtaza Liang MD Phone: tel: fax: [facility] Physical Medicine & Rehabilitation - [address] [place] [address] Phone: tel: fax: Referral ID Status Reason Start Date Expiration Date V isits Requested Visits Authorized [id number] Specialty Report Received 10/29/2021 1 1 Encounter Details Date Type Department Care Team (Late st Contact Info) Description 11/18/2021 10:00 EST Procedure visit [facility] Spine Program - [address] [place] [address] Sun Hernandez MD [address] [place] [address] [place] [address] Carpal tunnel syndrome of right wrist (Primary Dx) Social History Tobacco Use [...] as of this encounter Progress Notes * Sun Hernandez MD - 11/18/2021 1000 EST Images from the original note were not included. Rehabilitation Medicine Evaluation/ Electrodiagnostic Studies Chief Complaint Patient presents with ??? Right Hand - Pain Subjective: Barrett M Madeleine is being seen at the request of Murtaza Liang MD for physiatric consultation and consideration of electrodiagnostic evaluation of right hand pain and paresthesia. Barrett Ballard Madeleine has completed the pt. Intake questionnaire, pain diagram, rating scale and qualifiers. This is reviewed and placed in the chart. Prior evaluations are reviewed in the chart. 75-year-old right-handed male has been experiencing right hand pain and paresthesia episodically for a number of years. Recently his symptoms have significantly worsened. 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 Describes a numb tingling sensation in his fingers involving predominantly thumb index long digit and ring finger. Is also experience aching across his wrist and more recently is dropping objects. Repetitive gripping with driving worsens his symptoms. Past surgical history left endoscopic carpal tunnel release Dr. Liang with excellent results. PSH/ SH / FAM hx were reviewed in the questionnaire and in the EHR. Current Outpatient Medications: ??? APPLE CIDER VINEGAR ORAL, Take by mouth daily. , Disp: , Rfl: ??? aspirin 81 mg EC tablet, Take 81 mg by mouth at bedtime. Reported on 10/25/2016, Disp: , Rfl: ??? multivit-min/iron/folic/obk969 (HAIR, SKIN AND NAILS ADVANCED ORAL), Take by mouth., Disp: , Rfl: ??? Multivitamins with Minerals Tab, Take 1 Tab by mouth daily. Reported on 10/25/2016, Disp: , Rfl: Objective: Estimated body mass index is 27.22 kg/m?? as calculated from the following: Height as of 10/29/21: 172.7 cm (68). Weight as of 10/29/21: 81.2 kg (179 lb). EXAM: Patient is cooperative Sensation decreased in a median nerve distribution Positive Tinel median nerve at the wrist Positive Phalen's APB and intrinsic strength 5/5 Appropriate to proceed with electrodiagnostic testing. Pt. with complex presentation and dx not determined just based on physical exam. Pt. required a full H&P to direct electrodiagnostic testing. EMG/NCV: see data sheets/waveforms at end of note Assessment: EMG NCV is abnormal 1. Right moderate carpal tunnel syndrome evidenced by prolongation of the distal latency of the right median snap. Prolongation of the distal latency of the right median compound muscle action potential with slowing of the conduction velocity. EMG of the APB revealed few polyphasic motor units concordant with chronic compression. 2. No electrodiagnostic evidence of ulnar neuropathy wrist or elbow, polyneuropathy or low cervicalradiculopathy All testing results were reviewed and discussed with the patient. Questions answered fully. Patientis aware that final review and recommendations of ongoing treatment based on this testing will be reviewed by their referring physician. Plan: 1. Follow-up with Dr. Liang Future Appointments Date Time Provider Department Center 11/26/2021 11:00 Murtaza Liang MD [facility] None Sun Hernandez MD [place] Portions of this document have been prepared with speech recognition software or keyboard test data developer techniques. Minor irregularities or keyboarding misprints may be present. I spent a total of 15 minutes on the date of this encounter meeting with the patient and reviewing documentation/coordinating care as described in the above note. This was separate from any procedures performed at the time of the visit. Electrodiagnostic Studies: NCV & EMG Findings: Evaluation of the right median motor nerve showed prolonged distal onset latency (4.5 ms) and decreased conduction velocity (Elbow-Wrist, 43 m/s). The right median sensory nerve showed prolonged distal peak latency (4.0 ms). The right ulnar sensory nerve showed reduced amplitude (13.0 ??V). All remaining nerves (as indicated in the following tables) were within normal limits. All F Wave latencies were within normal limits. Needle evaluation of the right abductor pollicis brevis muscle showed slightly increased polyphasicpotentials. All remaining muscles (as indicated in the following table) showed no evidence of electrical instability. Nerve Conduction Studies Anti Sensory Summary Table Stim Site NR Peak (ms) Norm Peak (ms) P-T Amp (??V) Norm P-T Amp Site1 Site2 Delta-P (ms) Dist (cm)Roddy (m/s) Norm Roddy (m/s) Right Median Anti Sensory (2nd Digit) 30.9 ??C Wrist 4.0 <3.6 18.2 >10 Wrist 2nd Digit 4.0 14.0 35 Right Radial Anti Sensory (Base 1st Digit) 31.8 ??C Wrist 2.2 <3.1 10.8 Wrist Base 1st Digit 2.2 0.0 Right Ulnar Anti Sensory (5th Digit) 31.6 ??C Wrist 3.3 <3.7 13.0 >15.0 Wrist 5th Digit 3.3 14.0 42 Motor Summary Table Stim Site NR Onset (ms) Norm Onset (ms) O-P Amp (mV) Norm O-P Amp Site1 Site2 Delta-0 (ms) Dist (cm) Roddy (m/s) Norm Roddy (m/s) Right Median Motor (Abd Poll Brev) 31.8 ??C Wrist 4.5 <4.2 6.0 >5 Elbow Wrist 4.4 19.0 43 >50 Elbow 8.9 2.8 Right Ulnar Motor (Abd Dig Minimi) 31.7 ??C Wrist 2.9 <4.2 8.3 >3 B Elbow Wrist 3.7 21.0 57 >53 B Elbow 6.6 7.3 A Elbow B Elbow 1.9 12.0 63 >53 A Elbow 8.5 7.3 F Wave Studies NR F-Lat (ms) Lat Norm (ms) L-R F-Lat (ms) L-R Lat Norm Right Median (Mrkrs) (Abd Poll Brev) 31.7 ??C 31.95 <33 <2.2 EMG Side Muscle Nerve Root Ins Act Fibs Psw Amp Dur Poly Recrt Int Pat Comment Right 1stDorInt Ulnar C8-T1 Nml Nml Nml Nml Nml 0 Nml Nml Right Abd Poll Brev Median C8-T1 Nml Nml Nml Nml Nml 1+ Nml Nml Nerve Conduction Studies Anti Sensory Left/Right Comparison Stim Site L Lat (ms) R Lat (ms) L-R Lat (ms) L Amp (??V) R Amp (??V) L-R Amp (%) Site1 Site2 L Roddy (m/s) R Roddy (m/s) L-R Roddy (m/s) Median Anti Sensory (2nd Digit) 30.9 ??C Wrist 4.0 18.2 Wrist 2nd Digit 35 Radial Anti Sensory (Base 1st Digit) 31.8 ??C Wrist 2.2 10.8 Wrist Base 1st Digit Ulnar Anti Sensory (5th Digit) 31.6 ??C Wrist 3.3 13.0 Wrist 5th Digit 42 Motor Left/Right Comparison Stim Site L Lat (ms) R Lat (ms) L-R Lat (ms) L Amp (mV) R Amp (mV) L-R Amp (%) Site1 Site2 L Roddy (m/s) R Roddy (m/s) L-R Roddy (m/s) Median Motor (Abd Poll Brev) 31.8 ??C Wrist 4.5 6.0 Elbow Wrist 43 Elbow 8.9 2.8 Ulnar Motor (Abd Dig Minimi) 31.7 ??C Wrist 2.9 8.3 B Elbow Wrist 57 B Elbow 6.6 7.3 A Elbow B Elbow 63 A Elbow 8.5 7.3 Waveforms: documented in this encounter Plan of Treatment Scheduled Orders Name Type Priority Associated Diagnoses Orde r Schedule EMG/NERVE CONDUCTION STUDY Procedures Routine Right carpal tunnel syndrome Left carpal tunnel syndrome Ordered: 10/29/2021 documented as of this encounter Visit Diagnoses Diagnosis Carpal tunnel syndrome of right wrist- Primary Carpal tunnel syndrome documented in this encounter Care Teams Qc Tech Relationship Specialty Start Date End Date Sangita Nolasco MD PCP - General 06/24/21 documented as of this encounter
--- OUTSIDE RECORDS SUMMARY | 2024-11-26 13:58 | XMS_ITS | Encounter Summary ---
Author Organization [facility] Address [address] [place] [address] Care Team Providers Care Parts Counter Representative Name Role Phone Lasha Angelo MD Primary Care Provider [phone] Reason for Visit * Reason Onset Date Comments Paperwork request 06/02/2021 Encounter Details Date Type Department Care Team (Late st Contact Info) Description 06/02/2021 Telephone [facility] Orthopedic Surgery - [address] [place] [address] Murtaza Liang MD [address] [place] [address] Paperwork request Social History Tobacco [...] * Telephone Encounter - Melina Ramos - 06/04/2021 1104 EDT Received completed paperwork from Clinic on 06/04/21. Faxed to [employer] at [phone] on 06/04/21 Scanned into patients chart on 06/04/21 * Telephone Encounter - Sun Glez - 06/02/2021 1536 EDT Received disability paperwork from [employer] on 06/02/21. Labeled and placed in disability box for completion. documented in this encounter Plan of Treatment Not on file documented as of this encounter Visit Diagnoses Not on filedocumented in this encounter Care Teams Parts Counter Representative Relationship Specialty Start Date End Date Lasha Angelo MD PCP - General Family Medicine - Primary Care 01/09/20 06/23/21 documented as of this encounter
--- OUTSIDE RECORDS SUMMARY | 2024-11-26 13:58 | XMS_ITS | Encounter Summary ---
Author Organization [facility] Address [address] [place] [address] Care Team Providers Care Dumpling Machine Operator Name Role Phone Sangita Nolasco MD Primary Care Provider [phone] Reason for Visit * Reason Onset Date Comments Letter for School/Work 11/04/2021 Encounter Details Date Type Department Care Team (Late st Contact Info) Description 11/04/2021 Telephone [facility] Orthopedic Surgery - [address] [place] [address] Murtaza Liang MD [address] [place] [address] Letter for School/Work Social History Tobacco Use Types Packs/Day Years [...] encounter Miscellaneous Notes * Telephone Encounter - Joy Alvarez RN - 11/05/2021 1435 EST I spoke with the patient. He requested the fax to go directly to him. It was faxed per his requested to his fax at [phone] * Telephone Encounter - Fanny Castaneda - 11/04/2021 1055 EST Norm phoned today wanting to speak w/ Angela says he doesn't feel he explained things Well to him when he saw him Norm also states he needs an updated work note , please call him when ready and he will get fax number for his work documented in this encounter Plan of Treatment Not on file documented as of this encounter Visit Diagnoses Not on filedocumented in this encounter Care Teams Dumpling Machine Operator Relationship Specialty Start Date End Date Sangita Nolasco MD PCP - General 06/24/21 documented as of this encounter
--- OUTSIDE RECORDS SUMMARY | 2024-11-26 13:58 | XMS_ITS | Encounter Summary ---
Author Organization [facility] Address [address] [place] [address] Care Team Providers Care Broom Machine Operator Name Role Phone Sangita Nolasco MD Primary Care Provider [phone] Reason for Visit * Reason Comments Post-OP Follow Up Left wrist endoscopi c carpal tunnel release Numbness Pain Score: 0-7, Rad iates: no, Duration: 06/24/21 Left wrist endoscopic carpal tunnel release Post-OP Follow Up Pain Score: 0-7, Rad iates: no, Duration: 06/24/21 Left wrist endoscopic carpal tunnel release Encounter Details Date Type Department Care Team (Late st Contact Info) Description 07/23/2021 10:45 EDT Office Visit [facility] Orthopedic Surgery - [address] [place], [place] [id number] Murtaza Liang MD [address] [place] [id number] Left carpal tunnel syndrome (Primary Dx); Right [...] - - Weight 81.2 kg (179 lb) 07/23/2021 1106 EDT per pt Height 172.7 cm (5' 8) 07/23/2021 1106 EDT per pt Body Mass Index 27.22 07/23/2021 1106 EDT documented in this encounter Progress Notes * Murtaza Liang MD - 07/23/2021 1045 EDT Chief complaint: Numbness and Post-OP Follow Up of the Left Wrist (Pain Score: 0-7, Radiates: no, Duration: 06/24/21 Left wrist endoscopic carpal tunnel release/) and Post-OP Follow Up (Left wrist endoscopic carpal tunnel release) HPI: The patient returns today for his second postoperative visit after his left endoscopic carpal tunnel release performed on 06/24/2021. He rates his pain as a 0-7 out of 10. There are still certain things that cause him pain. 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 He also still has some numbness and tingling in his fingers. He states that the numbness is about 20% improved from his preoperative status. He is able to get through the night without being woken up and this has been very helpful for him in terms of his sleep patterns. The patient continues to have numbness and tingling in the right wrist and hand. This is associatedwith pain. Symptoms on the right are certainly less advanced than the left. The past medical, family and social history have been reviewed in the patient chart. OBJECTIVE: Ht 172.7 cm (68) Comment: per pt Wt 81.2 kg (179 lb) Comment: per pt BMI 27.22 kg/m?? Musculoskeletal: Left wrist and hand: The patient's incision at the wrist is well-healed. Wrist range of motion is full. Tinel's sign is negative over the carpal tunnel. He does have some scar tissue present at the incision site. Digital ranges of motion are full. He has diminished sensation to light touch in the median nerve distribution. He has good capillary refill throughout. Right wrist and hand: The patient continues to have a Tinel's sign that is positive over the carpaltunnel. Phalen's test is positive. Wrist range of motion is full. He has full digital range of motion. At rest he has slightly diminished sensation to light touch in the median nerve distribution. Hehas good capillary refill throughout. ASSESSMENT/PLAN: Encounter Diagnoses Name Primary? Left carpal tunnel syndrome Yes ??? Right carpal tunnel syndrome The patient is doing well following his left endoscopic carpal tunnel release. I do think it may take another couple months for his nerve to recover fully. 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 We have written him a work note to this effect. If his healing process is taking longer than th is then I encouraged him to give me a call so that we can adjust his work status. With regards to the right wrist he would like to wait until the left is completely healed. He will give us a call to schedule surgery on the right side. I do think he will have a slightly easier recovery process on the right. No orders of the defined types were placed in this encounter. documented in this encounter Plan of Treatment Not on file documented as of this encounter Visit Diagnoses Diagnosis Left carpal tunnel syndrome- Primary Carpal tunnel syndrome Right carpal tunnel syndrome Carpal tunnel syndrome documented in this encounter Care Teams Broom Machine Operator Relationship Specialty Start Date End Date Sangita Nolasco MD PCP - General 06/24/21 documented as of this encounter
--- OUTSIDE RECORDS SUMMARY | 2024-11-26 13:58 | XMS_ITS | Encounter Summary ---
Author Organization [facility] Address [address] [place] [address] Care Team Providers Care Nurses Supervisor Name Role Phone Lasha Angelo MD Primary Care Provider [phone] Reason for Visit * Auth/Cert Specialty Diagnoses / Procedures Referred By Nelia sanford Referred To Contact Diagnoses Unspecified rotator cuff tear or rupture of unspecified shoulder, not specified as traumatic Strain of other muscles, fascia and tendons at shoulder and upper arm level, left arm, subsequent encounter Sprain of other specified parts of left shoulder girdle, subsequent encounter Primary osteoarthritis, 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 Rotator cuff syndrome, unspecified laterality [M75.100] Strain of left trapezius muscle, subsequent encounter [S46.812D] Sprain, coracoclavicular ligament, left, subsequent encounter [S43.82XD] Arthritis of left shoulder region [M19.012] 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] Procedures MT SHLDR ARTHROSCOP,LYSE ADHESNS MT SHLDR ARTHROSCOP,SURG,W/ROTAT CUFF REPR Agusto Howell III, MD [address] [place] [address] Phone: tel: fax: Referral ID Status Reason Start Date Expiration Date Visits Re quested Visits Authorized [id number] 02/27/2020 1 1 Encounter Details Date Type Department Care Team (Late st Contact Info) Description 04/21/2020 11:54 EDT Anesthesia Event [facility] Operating Room [address] [place] [address] Roddy Obrien MD [address] [facility], [address] [place] [address] Mikael Nolasco MD [address] [place] [address] Anesthesia Record Procedure Summary Procedure Name Responsible Anesthesiologist Anesthesia Start Time Anesthesia Stop Time Left Shoulder Arthroscopy Or Possible Open Procedure, Rotator Cuff Repair, Capsular Release (Left: Shoulder) Roddy Obrien MD 04/21/20 1154 04/21/20 1600 Events Date Time Event Comment 04/21/2020 1154 An Start The patient was re-evaluated immediately before moderate or deep sedation use, before anesthesia induction, or before the anesthesia procedure. 1154 An Start Data 1204 An Induction The patient was reevaluated immediately before moderate or deep sedation use and before anesthesia induction. 1210 An Intubation 1213 Anesthesia Ready 1546 An Extubation Patient suctio niecy. Neuromuscular blockade reversed. Full TOF. Purposeful movement. Patient following commands. Spontaneous ventilation resumed. Airway device removed and Extubated per criteria. Transported in supine position with HOB elevated to PACU on nasal canula. 1553 an stop data 1600 Handoff to RN I completed my handoff to the receiving nurse during which we: 1. Identified the patient 2. Identified the responsible provider 3. Reviewed the pertinent medical history 4. Discussed the surgical course 5. Reviewed intra-op anesthesia management and issues during anesthesia 6. Set expectations for post-procedure period 7. Allowed opportunity for questions and acknowledgement of understanding. 1600 An Stop Meds Name Total ePHEDrine pre-filled syringe 17.5 mg fentanyl citrate (PF) injection 112.5 mc g glycopyrrolate pre-filled syringe 0.6 mg lidocaine 2% (PF) injection glass vial 6 0 mg midazolam 1 mg/mL 2 mL vial 2 mg neostigmine (BLOXIVERZ) injection 1 mg/m L 3 mL syringe 3 mg ondansetron (PF) (ZOFRAN) injection 4 mg propOFol (DIPRIVAN) injection 150 mg rocuronium 10 mg/mL vial 90 mg ceFAZolin (ANCEF) syringe 2 g 2,000 mg bupivacaine (PF) (MARCAINE) 20 mL, EPINEPHrine HCl (PF) (ADRENALIN) 0.1 mL, cloNIDine (PF) 50 mcg, dexaMETHasone (DECADRON) 4 mg 20 mL metoCLOPramide injection 10 mg phenylephrine pre-filled syringe 870 mcg lactated ringers (LR) infusion 1,000 mL * Agents Name Insp Sevoflurane Exp Sevoflurane O2 N2O Air * Blood No blood administrations on file. Lines, Drains, and Airways Type Details Placement Removal Wound 04/21/20; 1307; Inci kelley; Left; Shoulder; arthroscopic portal incisions 04/21/20 1307 by Lacy Jensen RN Full Thickness 08/27/15; 1035; Surg ical; Right; Knee; 04/21/20; 1533 08/27/15 1035 by Bella Reyes RN 04/21/20 1533 by Laurence Harrison RN Peripheral IV 04/21/20; 1001; B Br aun Introcan; Right, Dorsal; Hand; Inserted by RN (lance hurst ); 1; None; 3.15% Chlorhexidine with IPA; 04/21/20; 1756; Per order; No complications, Catheter intact, Dressing applied 04/21/20 1001 by Beckie Valdez RN 04/21/20 1756 by Laurence Harrison RN Non-Surgical Airway 04/21/20; 1249 (scott dumont via procedure documentation); 04/21/20; 1546 04/21/20 1249 by Yolis Casas CRNA 04/21/20 1546 by Yolis Casas CRNA documented in this encounter Social History Tobacco Use Types Packs/Day Years [...] 9:28 EDT documented as of this encounter OR Notes * Anesthesia Postprocedure Evaluation - Yolis aCsas APRN - 04/21/2020 1600 EDT Patient: Barrett Salvador Vital signs were reviewed with the recovery nurse. [facility] Vitals Value Taken Time BP 126/67 04/21/2020 16:00 Temp 36 04/21/2020 16:00 Resp 10 04/21/2020 16:00 Pulse From Oximetry 84 BPM 04/21/2020 16:00 SpO2 100 % 04/21/2020 16:00 Vitals shown include unvalidated device data. Last Pain Score - Numeric Pain Level (Scale 1-10): 8 Type of Anesthesia - general Anesthesia Post Evaluation Post-procedure vitals reviewed and are stable. Level of consciousness: sedated Temperature status: normothermia Respiratory status: airway patent, nasal cannula and O2 Sat-appropriate for condition Cardiovascular status: acceptable and appropriate for condition Hydration status: adequate Nausea/Vomiting: none Pain management: adequate Post-Op Assessment: patient tolerated procedure well with no complications Patient participation: unable to participate due to sedation Disposition: outpatient/home Anesthesia Complications: No apparent anesthesia complications * Anesthesia Procedure Notes - Yolis Casas APRN - 04/21/2020 1244 EDT Associated Order(s): Airway Airway Date/Time: 04/21/2020 12:10 Urgency: elective Airway not difficult General Information and Staff Patient location during procedure: OR Performed: resident/NP/AA Indications and Patient Condition Indications for airway management: anesthesia Sedation level: GA Preoxygenated: yes Patient position: sniffing Ventilation assessment: 1 - Easy Final Airway Details Final airway type: endotracheal airway Successful airway: ETT Successful intubation technique: direct laryngoscopy Blade: Diana Blade size: #4 ETT size (mm): 7.5 Cormack-Lehane Classification: grade IIb - view of arytenoids or posterior of glottis only Placement verified by: chest auscultation, capnometry and palpation of cuff Number of attempts at approach: 1 Additional Comments Atraumatic Laryngoscopy, Dentition: Dentures removed and given to circ RN * Anesthesia Procedure Notes - Mikael Nolasco MD - 04/21/2020 1211 EDT Associated Order(s): Peripheral Block Peripheral Block Patient location during procedure: pre-op Start time: 04/21/2020 11:05 End time: 04/21/2020 11:15 Staffing Anesthesiologist: Roddy Obrien MD Resident/NP: Mikael Nolasco MD Performed: resident/NP/AA Preanesthetic Checklist Completed: patient identified, surgical consent, pre-op evaluation, timeout performed, IV checked, risks and benefits discussed and monitors and equipment checked Peripheral Block Patient position: sitting Prep: ChloraPrep Patient monitoring: heart rate, continuous pulse ox and BP cuff Block type: interscalene Injection technique: single-shot Procedures: ultrasound guided Needle Needle type: Quincke Needle gauge: 22 G Needle localization: ultrasound guidance Test dose: negative Assessment Injection assessment: negative aspiration for heme, no paresthesia on injection, incremental injection and local visualized surrounding nerve on ultrasound Paresthesia pain: none Heart rate change: no Slow fractionated injection: yes Ultrasound Equipment Machine used: SonoSite X-Port (FAH) sterile probe cover Probe did NOT contact body fluids/broken skin. Standard cleaning with recommended disinfectant Reason for block: at surgeon's request, for post-op pain management * Anesthesia Preprocedure Evaluation - Yolis Casas APRN - 04/21/2020 1209 EDT Anesthesia Preprocedure Evaluation Patient Medical History, including Anesthesia History reviewed. Chart and Nursing Notes reviewed, including NPO status and Medication History. Additional ROS/History Findings: Allergies Allergen Reactions ??? Coconut Swelling of throat ??? Lipitor [Atorvastatin] Muscle Aches Muscle weakness Review of Systems Constitutional: Negative for chills and fever. HENT: Negative for sore throat. Respiratory: Negative for cough, sputum production, shortness of breath and wheezing. Cardiovascular: Negative for chest pain and palpitations. Gastrointestinal: Negative for heartburn. Musculoskeletal: Negative for myalgias. All other systems reviewed and are negative. Past Medical History: Diagnosis Date ??? Abnormal stress test ??? Acid reflux ??? Anemia ??? 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 Bucket handle tear of medial meniscus of knee 08/04/2015 ??? Chest heaviness ??? Colon polyp ??? FUENTES (dyspnea on exertion) ??? Hypertension ??? Impingement syndrome of left shoulder 11/04/2013 ??? Osteoarthritis of knee 03/08/2016 ??? Sleep apnea ??? Sleep apnea ??? Snores ??? Tear of left supraspinatus tendon 11/04/2013 Relevant Problems Anesthesia (+) Delayed emergence from anesthesia (+) Sleep apnea PULMONARY (+) SOB (shortness of breath) (+) Sleep apnea CARDIOVASCULAR (+) Hypertensive disorder Physical Exam Airway Mallampati: II TM distance: >3 FB Neck ROM: full Cardiovascular Rhythm: regular Rate: normal Dental (+) upper dentures, lower dentures Pulmonary - normal exam Abdominal Anesthesia Plan ASA 2 Anesthesia Type - general Block for post-op pain? Yes - via interscalene block Anesthesia plan and risks discussed. Informed consent obtained from patient. Specific risks discussed were nausea, vomiting and incomplete block. Code status discussed? No The preoperative history and physical which was performed within 30 days of this procedure, has been reviewed and the clinically appropriate elements of the physical examination have been repeated. There are no changes to the documented history and physical or, if so, such changes are documented inthis note PAT Note (Notes from 03/22/20 through 04/21/20) No notes of this type exist for this encounter. documented in this encounter Plan of Treatment Not on file documented as of this encounter Procedures Procedure Name Priority Date/Time Associated Diagnosis Comments ANESTHESIA INTUBATION Routine 04/21/2020 12:44 EDT ANESTHESIA PERIPHERAL BLOCK Routine 04/21/2020 12:11 EDT documented in this encounter Results * MT AN ELECTIVE ENDOTRACHEAL AIRWAY (04/21/2020 12:44 EDT) Narrative Yolis Casas APRN - 04/21/2020 12:44 EDT Yolis Casas APRN ? 04/21/2020 12:49 Airway Date/Time: 04/21/2020 12:10 Urgency: elective Airway not difficult General Information and Staff Patient location during procedure: OR Performed: resident/NP/AA Indications and Patient Condition Indications for airway management: anesthesia Sedation level: GA Preoxygenated: yes Patient position: sniffing Ventilation assessment: 1 - Easy Final Airway Details Final airway type: endotracheal airway Successful airway: ETT Successful intubation technique: direct laryngoscopy Blade: Diana Blade size: #4 ETT size (mm): 7.5 Cormack-Lehane Classification: grade IIb - view of arytenoids or posterior of glottis only Placement verified by: chest auscultation, capnometry and palpation of cuff Number of attempts at approach: 1 Additional Comments Atraumatic Laryngoscopy, Dentition: Dentures removed and given to circ RN Roddy Obrien MD ANESTHESIA ORDERABLES Final Result * Peripheral Block (04/21/2020 12:11 EDT) Narrative Mikael Nolasco MD - 04/21/2020 12:11 EDT Mikael Nolasco MD ? 04/21/2020 12:12 Peripheral Block Patient location during procedure: pre-op Start time: 04/21/2020 11:05 End time: 04/21/2020 11:15 Staffing Anesthesiologist: Roddy Obrien MD Resident/NP: Mikael Nolasco MD Performed: resident/RICHARD/VON Preanesthetic Checklist Completed: patient identified, surgical consent, pre-op evaluation, timeout performed, IV checked, risks and benefits discussed and monitors and equipment checked Peripheral Block Patient position: sitting Prep: ChloraPrep Patient monitoring: heart rate, continuous pulse ox and BP cuff Block type: interscalene Injection technique: single-shot Procedures: ultrasound guided Needle Needle type: Quincke Needle gauge: 22 G Needle localization: ultrasound guidance Test dose: negative Assessment Injection assessment: negative aspiration for heme, no paresthesia on injection, incremental injection and local visualized surrounding nerve on ultrasound Paresthesia pain: none Heart rate change: no Slow fractionated injection: yes Ultrasound Equipment Machine used: SonoSite X-Port (FA) sterile probe cover Probe did NOT contact body fluids/broken skin. Standard cleaning with recommended disinfectant Reason for block: at surgeon's request, for post-op pain management Roddy Obrien MD ANESTHESIA ORDERABLES Final Result documented in this encounter Visit Diagnoses Not on filedocumented in this encounter Administered Medications Inactive Administered Medications - up to 3 most recent administrations Medication Order MAR Action Action Date Dose Rate Site bupivacaine (PF) (MARCAINE) 20 mL, EPINEPHrine HCl (PF) (ADRENALIN) 0.1 mL, cloNIDine (PF) 50 mcg, dexaMETHasone (DECADRON) 4 mg FA IP EQF CONTINUOUS PRN FOR ONE STEP MEDS, Starting on Mon04/21/20 at 1110, Until Mon04/21/20 at 1600, Routine, Anesthesia Intraprocedure New Bag 04/21/2020 11:10 EDT 20 mL ceFAZolin (ANCEF) syringe 2 g 2 g, intravenous, Administer over 10 Minutes, PRE-OP ONCE, 1 dose, On Mon04/21/20 at 1000, Routine, Preprocedure Given 04/21/2020 12:07 EDT 2,000 mg ePHEDrine injection 25 mg/5 mL syringe PRN, Starting on Mon04/21/20 at 1225, Until Mon04/21/20 at 1600, Routine, Anesthesia Intraprocedure Given 04/21/2020 13:31 EDT 7.5 mg Given 04/21/2020 12:25 EDT 10 mg fentaNYL citrate (PF) injection PRN, Starting on Mon04/21/20 at 1213, Until Mon04/21/20 at 1600, Routine, Anesthesia Intraprocedure Given 04/21/2020 15:50 EDT 12.5 mcg Given 04/21/2020 14:35 EDT 50 mcg Given 04/21/2020 12:13 EDT 50 mcg glycopyrrolate (PF) (ROBINUL) 0.4 mg/2 mL (0.2 mg/mL) injection PRN, Starting on Mon04/21/20 at 1533, Until Mon04/21/20 at 1600, Routine, Anesthesia Intraprocedure Given 04/21/2020 15:33 EDT 0.6 mg lactated ringers (LR) infusion at 25 mL/hr, intravenous, CONTINUOUS, Starting on Mon04/21/20 at 1000, Until Mon04/21/20 at 2007, Routine, Preprocedure New Bag 04/21/2020 15:44 EDT Continued by Anesthesia 04/21/2020 11:54 EDT New Bag 04/21/2020 10:02 EDT 25 mL/hr lidocaine (PF) 20 mg/mL (2 %) injection PRN, Starting on Mon04/21/20 at 1207, Until Mon04/21/20 at 1600, Routine, Anesthesia Intraprocedure Given 04/21/2020 12:07 EDT 60 mg metoCLOPramide (REGLAN) injection PRN, Starting on Mon04/21/20 at 1235, Until Mon04/21/20 at 1600, Routine, Anesthesia Intraprocedure Given 04/21/2020 12:50 EDT 5 mg Given 04/21/2020 12:35 EDT 5 mg midazolam (PF) (VERSED) injection PRN, Starting on Mon04/21/20 at 1157, Until Mon04/21/20 at 1600, Routine, Anesthesia Intraprocedure Given 04/21/2020 11:57 EDT 2 mg neostigmine methylsulfate (BLOXIVERZ) injection PRN, Starting on Mon04/21/20 at 1533, Until Mon04/21/20 at 1600, Routine, Anesthesia Intraprocedure Given 04/21/2020 15:33 EDT 3 mg ondansetron (PF) (ZOFRAN) injection PRN, Starting on Mon04/21/20 at 1535, Until Mon04/21/20 at 1600, Routine, Anesthesia Intraprocedure Given 04/21/2020 15:35 EDT 4 mg phenylephrine HCl in 0.9% NaCl injection FA IP EQF CONTINUOUS PRN FOR ONE STEP MEDS, Starting on Mon04/21/20 at 1333, Until Mon04/21/20 at 1600, Routine, Anesthesia Intraprocedure New Bag 04/21/2020 13:33 EDT 15 mcg/m in 9 mL/hr propOFol (DIPRIVAN) injection PRN, Starting on Mon04/21/20 at 1207, Until Mon04/21/20 at 1600, Routine, Anesthesia Intraprocedure Given 04/21/2020 12:10 EDT 50 mg Given 04/21/2020 12:07 EDT 100 mg rocuronium (ZEMURON) injection PRN, Starting on Mon04/21/20 at 1207, Until Mon04/21/20 at 1600, Routine, Anesthesia Intraprocedure Given 04/21/2020 12:07 EDT 90 mg documented in this encounter Orders Medications Ordered That Nish ht Not Have Been Administered Count Last Ordered Date First Ordered Date lidocaine (PF) 20 mg/mL (2 %) injection 1 0 04/21/2020 propOFol (DIPRIVAN) injection 1 04/21/2020 rocuronium (ZEMURON) injection 1 04/21/2020 documented in this encounter Care Teams Nurses Supervisor Relationship Specialty Start Date End Date Lasha Angelo MD PCP - General Family Medicine - Primary Care 01/09/20 06/23/21 documented as of this encounter
--- OUTSIDE RECORDS SUMMARY | 2024-11-26 13:58 | XMS_ITS | Encounter Summary ---
Author Organization [facility] Address [address] [place] [address] Care Team Providers Care Solar Sales Energy Advisor Name Role Phone Lasha Angelo MD Primary Care Provider [phone] Reason for Referral * PT/OT/ST (Routine/Next Available) - Closed Specialty Diagnoses / Procedures Referred By Nelia sanford Referred To Contact Diagnoses Secondary adhesive capsulitis of left shoulder Surgical aftercare, musculoskeletal system Agusto Howell III, MD Phone: tel: fax: Referral ID Status Reason Start Date Expiration Date V isits Requested Visits Authorized [id number] Closed Specialty Services Required 04/22/2020 1 1 Question Answer Surgery (and Date): 04/21/2020: LEFT supraspinatus, infraspinatus and subscapularis repair, coracoplasty, capsular release, lysis of subdeltoid adhesions Reason for Request: PT for left shoulder Comments Name: Barrett Salvador Instructions: Evaluate and treat Please follow attached protocol All modalities accepted, AT/OT/PT ATC services if available and appropriate When Start PT 6 weeks post op When F/U JFL 4 weeks post op Give shoulder immobilizer yes Start wearing 3 weeks post op When to shower: 10 days post op Encounter Details Date Type Department Care Team (Late st Contact Info) Description 04/22/2020 Orders Only [facility] Orthopedic Surgery - [facility] [address] [place] [address] Agusto Howell III, MD [address] [place] [address] Secondary adhesive capsulitis of left [...] 9:28 EDT documented as of this encounter Progress Notes * Agusto Howell III, MD - 04/22/2020 7192 EDT Images from the original note were not included. Name: Barrett Salvador Rotator Cuff Repair Rehabilitation Protocol Two tendon or Massive Tears and Revision Repairs 04/21/2020: LEFT supraspinatus, infraspinatus and subscapularis repair, coracoplasty, capsular release, lysis of subdeltoid adhesions Post op Day 10 Stretching exercises Three times a day Hold stretch 10 seconds, 10 repetitions per set X 2 sets each time Active Range of Motion (ROM) hand and wrist. May do elbow if biceps not tenodesed Will start skilled PT at 6 weeks post op. Remove sling to shower at 10 days post op. DO NOT LIFT UPPER ARM UNDER YOUR OWN POWER)!! DO NOT LIFT UPPER ARM UNDER YOUR OWN POWER).) Convert from ultrasling to to a shoulder immobilizer at 3 weeks post op. You may start these 10 days post operatively Shoulder External Rotation Exercises: Push involved forearm away from body (using a stick of some sort) while holding elbow close to body. This rotates the shoulder externally. Please work toward gently increasing your rotation as tolerated over several days to reach 20 degrees of external rotation beyond straight ahead of you. Always keep the involved elbow at a 90 degree bend - do not straighten or bend it during this shoulder rotation exercise. Hold this stretch in a position of mild-moderate discomfort for 15 seconds. Do this for 10 repetitions which equals one set. Do two sets one after the other, three times a day. If this repair was so large that you are not permitted to shower - you should do this external rotation stretch while wearing the sling. Just unbuckle the waist strap and do the exercise otherwise with the sling and abduction pillow in place. Rebuckle the strap when finished the exercise. THE SUBSCAPULARIS WAS REPAIRED. Do not stretch beyond 20 degrees beyond forearm straight in front of you . Active assisted elbow range of motion Active wrist, hand and finger motion Squeezing a ball When you start PT the therapist may work on: Supine passive forward elevation to 120 degrees Supine passive abduction to 80 degrees Supine passive ER at 30 degrees abduction to 30 degrees ER AAROM elbow/wrist/hand and fingers Lymphedema massage if needed 6 weeks post op Start PT if you have not done so already Table Slides: Rest involved hand on table and gently push it forward (as if you won the mary playing cards!) butonly push to a point of mild to moderate discomfort. Hold this stretch for 15 seconds. Do 10 repetitions in a row which equals one set. Do two sets three times a day. Discontinue sling at 8 weeks post op, wear if walking in vulnerable situations Continue exercises as above. Advance passive external rotation as tolerated to match the other shoulder. Start AAROM and AROM, no restriction except avoid internal rotation In general focus on supine forward flexion (see diagram): External rotation at 0 and 30 degrees of abduction Limit abduction to 80 degrees until external rotation normalizes , then progress Avoid strengthening Continue capsular mobilization - avoiding internal rotation stretch until 12 weeks post op and thenprogress as tolerated Start donavan exercises in PT (see diagram) 12 Weeks Post Op Continue stretching, AAROM and AROM without restriction Start internal rotation stretching at 0 degrees of abduction first and progress up to stretching at90 degrees of abduction (sleeper stretch) as tolerated. No heavy overhead lifting, no acceleration of arm in sport Start elastic band strengthening: internal and external rotation with the arm at the side, low row and biceps curl (see diagram) unless you had a massive repair in which case start at 16 weeks. In your case start this at 12 weeks.: 6 Months Post Op Progress to light weights in gym Progress to full activity as able documented in this encounter Plan of Treatment Scheduled Referrals Name Type Priority Associated Diagnoses Orde r Schedule AMB CONS/FOLLOW UP PHYSICAL THERAPY Outpatient Referral Routine Secondary adhesive capsulitis of left shoulder Surgical aftercare, musculoskeletal system Ordered: 04/22/2020 documented as of this encounter Visit Diagnoses Diagnosis Secondary adhesive capsulitis of left shoulder- Primary Surgical aftercare, musculoskeletal system Aftercare following surgery of the musculoskeletal system, NEC documented in this encounter Care Teams Solar Sales Energy Advisor Relationship Specialty Start Date End Date Lasha Angelo MD PCP - General Family Medicine - Primary Care 01/09/20 06/23/21 documented as of this encounter
--- OUTSIDE RECORDS SUMMARY | 2024-11-26 13:58 | XMS_ITS | Encounter Summary ---
Author Organization [facility] Address [address] [place] [address] Care Team Providers Care Architect Name Role Phone Lasha Angelo MD Primary Care Provider [phone] Encounter Details Date Type Department Care Team (Late st Contact Info) Description 04/30/2020 Orders Only [facility] Orthopedic Surgery - [facility] [address] [place] [address] Murtaza Negro, [address] [place] [address] Secondary adhesive capsulitis of left shoulder (Primary Dx); Surgical aftercare, musculoskeletal system; Rotator cuff syndrome, unspecified laterality Social History Tobacco Use Types Packs/Day Years [...] following surgery of the musculoskeletal system, NEC Rotator cuff syndrome, unspecified laterality documented in this encounter Orders Equipment Count Last Ordered Date First Orde red Date SHOULDER IMMOBILIZER ([id number]) 1 05/01/2020 documented in this encounter Care Teams Architect Relationship Specialty Start Date End Date Lasha Angelo MD PCP - General Family Medicine - Primary Care 01/09/20 06/23/21 documented as of this encounter
--- OUTSIDE RECORDS SUMMARY | 2024-11-26 13:58 | XMS_ITS | Encounter Summary ---
Author Organization [facility] Address [address] [place] [address] Care Team Providers Care Hob Mill Operator Name Role Phone Lasha Angelo MD Primary Care Provider [phone] Reason for Referral * Office Procedure (Routine/Next Available) - Specialty Report Received Specialty Diagnoses / Procedures Referred By Contact Referred To Contact Physical Medicine and Rehab Diagnoses Carpal tunnel syndrome of left wrist Procedures EMG/NERVE CONDUCTION STUDY Agusto Howell III, MD Phone: tel: fax: [facility] Physical Medicine & Rehabilitation - [address] [place] [address] Phone: tel: fax: Referral ID Status Reason Start Date Expiration Date V isits Requested Visits Authorized [id number] Specialty Report Received 10/22/2020 1 1 Reason for Visit * Reason Comments Pain Encounter Details Date Type Department Care Team (Latest Contact Info) Description 10/22/2020 13:15 EST Office Visit [facility] Orthopedic Surgery - [address] [place] [address] Agusto Howell III, MD [address] [place] [phone] Secondary adhesive capsulitis of left shoulder (Primary Dx); Surgical aftercare, musculoskeletal system; Carpal tunnel syndrome of left wrist Social History Tobacco Use Types Packs/Day Years [...] - - Weight 73 kg (161 lb) 10/22/2020 1315 EST per pt Height 172.7 cm (5' 8) 10/22/2020 1315 EST per pt Body Mass Index 24.48 10/22/2020 1315 EST documented in this encounter Progress Notes * Agusto Howell III, MD - 10/22/2020 1315 EST This 74-year-old male is now roughly 6 months status post 04/21/2020 left shoulder arthroscopic supraspinatus, infraspinatus and subscapularis repair, coracoplasty, capsular release and lysis of adhesions. Fevers, chills, night sweats, erythema, drainage from the incisions or progressively increasing pain is denied. . There is no sense of shoulder instability. The patient denies significant increased swelling in the involved extremity. 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 In terms of his left shoulder, at this point this patient is pleased with their progress so far. Now complains of left hand numbness and pain in the palm of his hand which he says has been presentfor about 6 months since the surgery although I do not know that I have heard him complain of it before. I have reviewed the past medical history, past family history, social history outlined in this chart Objective: This patient is alert, awake and cooperative. This patient is normocephalic. This patient's mood is appropriate and is in no acute distress. This patient has unlabored breathing with a normal rate and rhythm. This patient has a regular pulse. This patient has a age-appropriate stiffness but painless range of motion of the cervical spine. There is no point tenderness. There is no significant deformity. Alignment is within normal limits. There are negative cervical compression tests. The operative shoulder has 180 degrees of forward elevation, 180 degrees of abduction in the scapular plane, 40 degrees of external rotation at 0 of abduction and internal rotation to L3. The contralateral shoulder has 180 degrees of forward elevation, 180 degrees of abduction in the scapular plane, 40 degrees of external rotation at 0 degrees of abduction and internal rotation to L3. The affected shoulder has 4+/5 strength with contraction of the supraspinatus, 4+/5 strength with contraction of the subscapularis, 4+/5 strength with contraction of the infraspinatus, 4+/5 strength with contraction of the biceps, 4+/5 strength with contraction of the deltoid and 4+/5 strength withcontraction of the serratus anterior, all without pain. The elbow has full and supple range of motion. He has a negative Tinel's test over the cubital tunnel and a negative hyperflexion test. There is no swelling in the forearm wrist hand or fingers. The upper extremity is grossly neurovascularly intact distal to the surgical site. He has a negative Phalen's test at the wrist. Negative Tinel's test over the carpal tunnel. He has 5 out of 5 strength with wrist dorsiflexion, palmar flexion, finger extension, finger flexion, interosseous as well as lumbrical strength, first dorsal interosseous strength, flexor indicis proprius strength and flexor hallucis strength. Assessment: Stable status post shoulder surgery. Appropriate fibrous capsulitis with secondary impingement which is slowly improving. Right hand numbness which appears to relate to carpal tunnel via the distribution of his symptoms however I cannot reproduce this on clinical exam Plan: I spent a total of 40 minutes on the date of this encounter meeting with the patient and reviewing documentation/coordinating care as described in the above note.No procedures were performed at the time of the visit. He has agreed to be referred for electrodiagnostic studies to try to assess why his left hand is painful and numb The patient will continue to work at capsular mobilization without restriction The patient will continue to work at rotator cuff and scapular stabilizing strengthening but limit strengthening activities below chest level until rotation normalizes He will continue with skilled PT and progressed to an independent program as he is able He states he does not need any new notes regarding work restrictions I discussed the activities that the patient should avoid Followup has been arranged. For 2 months from now, hopefully by that his nerve conduction studies will be done This note was prepared with the aid [...] following surgery of the musculoskeletal system, NEC Carpal tunnel syndrome of left wrist Carpal tunnel syndrome documented in this encounter Discontinued Medications Medication Sig Discontinue Reason Start Date End Da te oxyCODONE (ROXICODONE) 5 mg immediate release tablet Take 1 Tab by mouth every 4 hours as needed for Pain. Daily Max: 30 mg Therapy completed 04/23/2020 10/22/2020 promethazine (PHENERGAN) 12.5 mg tablet Take 1-2 Tabs by mouth every 6 hours as needed for Nausea. Therapy completed 04/21/2020 10/22/2020 documented as of this encounter Care Teams Hob Mill Operator Relationship Specialty Start Date End Date Lasha Angelo MD PCP - General Family Medicine - Primary Care 01/09/20 06/23/21 documented as of this encounter
--- OUTSIDE RECORDS SUMMARY | 2024-11-26 13:58 | XMS_ITS | Encounter Summary ---
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] Procedures [place] SHLDR ARTHROSCOP,LYSE ADHESNS [place] SHLDR ARTHROSCOP,SURG,W/ROTAT CUFF REPR Agusto Howell III, MD [address] [place] [address] Phone: tel: fax: Referral ID Status Reason Start Date Expiration Date Visits Re quested Visits Authorized [id number] 02/27/2020 1 1 Encounter Details Date Type Department Care Team (Late st Contact Info) Description 04/21/2020 11:25 EDT - 04/21/2020 15:35 EDT Surgery [facility] FA Operating Room [address] [place] [address] Agusto Howell III, MD [address] [place] [address] Left Shoulder Arthroscopy Or Possible Open Procedure, Rotator Cuff Repair, Capsular Release [70687 (CPT??)] Surgery Details Date/Time Status Location OR Service Patient Class Case Cl ass Case Type Trauma Case? 04/21/2020 1125 Posted [facility] OR FOR [facility] Outpatient Surgery H - Elective Panel 1 Procedure LRB Anes Op Region Wound Class Comments Left Shoulder Arthroscopy Or Possible Open Procedure, Rotator Cuff Repair, Capsular Release Left Patient Choice Shoulder Class I/ Clean surgeon time: 225 minutes . Left Patient Choice Shoulder Class I/ Clean Surgeon Surgeon Role Service Panel Agusto Howell III, MD Primary Orthopedics 1 Murtaza Negro PA-C Assisting Orthopedics 1 Special Needs Arthrex 1 mm Allograft needed documented in this encounter Social History Tobacco [...] Sign Reading Time Taken Comments Blood Pressure 136/72 04/21/2020 0949 EDT Pulse - - Temperature 36 ??C (96.8 ??F) 04/21/2020 0949 EDT Respiratory Rate 16 04/21/2020 0949 EDT Oxygen Saturation 100% 04/21/2020 0949 EDT Inhaled Oxygen Concentration - - Weight 73.4 kg (161 lb 13.1 oz) 04/21/2020 0949 EDT Height - - Body Mass Index 24.61 02/27/2020 1020 EDT documented in this encounter Discharge Instructions * Discharge Instr - Activity* Murtaza Negro PA-C - 04/21/2020 16:16 EDT [facility] [employer] SHOULDER ARTHROSCOPY POSTOPERATIVE INSTRUCTIONS (Large Rotator Cuff Repair) Your arthroscopy results included: Rotator Cuff injury: Full thickness tear and frozen shoulder Treatment included: Rotator cuff repair and lysis of adhesions Dressing Care: Underneath your sling and Cryo/Cuff is a bulky dressing covering your incisions. This should remain in place for 48 hours following surgery. At that point the dressing can be removed. Dry the incisions carefully and cover with Band-Aids. Some slight drainage is normal. Do not bathe or submerse yourself in water. Sponge baths only. Cryo/Cuff: Continue to use the Cryo/Cuff as ice is an excellent treatment for postoperative pain. Sling: The sling is not only for your comfort, but also for your protection. Continue to wear your sling until your follow up appointment unless directed to do otherwise. Most arthroscopic rotator cuff or labral repairs require the use of the sling for 4-6 weeks following surgery. It is okay to useyour hand and wrist for light activities as long as your sling is on and your elbow is by your side. (i.e., typing, writing, etcetera). You should wear the sling at ALL TIMES, including when sleeping. Sleeping in a recliner might be more comfortable. Wrist / Hand Range of Motion: With your sling on, work on turning from palm up to palm down. Also practice opening and closing your hand, and squeeze the ball that came with the Ultra Sling. Pain Control: You may not have much pain immediately after surgery due to a nerve block performed by your surgeon or the anesthesiologist. Try to begin your pain medication before this nerve block wears off. Taking Tylenol regularly as described on the bottle is advised for at least the first few days, but only if your prescription pain medications do not contain Tylenol in them. See below for your specific pain medications. Unless circled below, do not take ibuprofen, Motrin or Advil for the first 6 weeks after your surgery, as these drugs may slow the healing process. The instructions for use are on the prescription bottles: Tylenol, maximum dose 4000 mg in 24 hours and Oxycodone Please take Aspirin 325 mg twice daily until your follow up appointment, as long as you do not havecontraindications for taking this. Take with food. Nausea & Vomiting Medications: You may have been given meds for nausea secondary to the effectsof anesthesia or to treat any nausea induced by your pain medications. Narcotics can lead to constipation; using an sbhg-abb-hjuiwqe stool softener may be helpful. Phenergen Colace lpgs-elw-xazjkqi stool softeners Things to Call Your Surgeon About: If the incisions become red, have continuous drainage, smell foul, or if you develop persistent fevers (greater than 100.4 F degrees) vomiting, or diarrhea, shortness of breath or calf pain; call your surgeons office. There is always someone available. documented in this encounter Medications at Time of Discharge aspirin 81 mg EC tablet Take 81 mg by mouth at bedtime. Reported on 10/25/2016 Multivitamins with Minerals Tab Take 1 Tab by mouth daily. Reported on 10/25/2016 oxyCODONE (ROXICODONE) 5 mg immediate release tablet Take 1 Tab by mouth every 4 hours as needed for Pain. Daily Max: 30 mg 10 Tab 04/21/2020 04/22/2020 promethazine (PHENERGAN) 12.5 mg tablet Take 1-2 Tabs by mouth every 6 hours as needed for Nausea. 15 Tab 04/21/2020 10/22/2020 documented as of this encounter Ordered Prescriptions Prescription Sig Dispense Quantity Refills Last Filled Start Date End Date promethazine (PHENERGAN) 12.5 mg tablet Take 1-2 Tabs by mouth every 6 hours as needed for Nausea. 15 Tab 04/21/2020 10/22/2020 oxyCODONE (ROXICODONE) 5 mg immediate release tablet Take 1 Tab by mouth every 4 hours as needed for Pain. Daily Max: 30 mg 10 Tab 04/21/2020 04/22/2020 documented in this encounter Discharge Disposition Disposition Code Departure Means Destination Home or Self Care Wheelchair Home documented in this encounter H&P Notes * Agusto Howell III, MD - 04/21/2020 1130 EDT The preoperative history and physical which was performed within 30 days of this procedure has been reviewed and the clinically appropriate elements of the physical examination have been repeated. There are no changes to the documented history and physical or if so such changes are documented below Murtaza Negro PA-C 04/21/2020 11:30 I concur with the above note Please refer to addended Orthopaedic office notes for further details of the history of present illness as well as the musculoskeletal portion of this exam. Source Note - [employer]ATE [employer], SCAN 2 - 04/15/2020 13:13 EDT documented in this encounter OR Notes * OR Surgeon - Agusto Howell III, MD - 04/21/2020 1731 EDT The date of the operation is 04/21/2020 and the date of the dictation is 04/21/2020. 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 Postop diagnosis: Same plus coracoid impingement Procedure: Left shoulder: 1. Evaluation under anesthesia 2. Arthroscopic capsular release 3. Arthroscopic lysis subdeltoid adhesions 4. Arthroscopic subscapularis repair 5. Arthroscopic revision supraspinatus repair with removal of sutures 6. Arthroscopic infraspinatus repair 7. Arthroscopic coracoplasty Surgeon: Dante Wind Turbine Technician: Murtaza Negro PA-C (There were no orthopedic residents available to assist with this procedure. Please see below) Anesthesia: Preoperative interscalene nerve block plus general endotracheal plus local Brief clinical history: This is a 74-year-old ambidextrous male who injured his left shoulder while at work on 08/27/2019. He had a prior left shoulder arthroscopic supraspinatus repair, subacromial decompression and distalclavicle excision in 2014 and has done quite well with that shoulder until the reinjury. 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 His physical findings as well as MRI findings are consistent with a re-tear of his supraspinatus, a tear of his infraspinatus aswell as his subscapularis along with some progression of atrophy of the rotator cuff muscles. He also has secondary he is a capsulitis. Having not responded to a lengthy period of conservative management this patient has elected to proceed with surgical intervention. For further documentation of indications for this procedure please refer to the history and physical with addended orthopedic office notes within this medical records. Operative procedure and findings: The patient was brought to the operating room and placed on the OR table in the supine position. A preoperative interscalene nerve block was administered in the preop hold area. The patient did receive a preoperative pain protocol which is standard practice in this institution. Once in the OR, while the patient was awake a preoperative surgical site identification checklist was completed. The patient did receive Kefzol 2 g IV antibiotics within 60 minutes of the skin incision. Following COVID 19 precautions, after the patient was placed on the operating room table and fully supported all none anesthesia personnel left the room and the anesthesia team performed a general endotracheal intubation. After 10 minutes from the intubation the staff reentered the room. The patient was then placed in the semi-estrada's position using a [employer] table. They were sitting keren padded bolster with hips and knees gently flexed and feet resting on a pillow. The trunk was supported with padded side supports. The neck was carefully kept in neutral position and head secured toa head rest using a foam facemask securely fastened around the forehead and loosely fastened around the mandible. The nonoperative upper extremity was supported in a padded support and secured there.Venodyne sequential compression stockings were placed on both legs and turned on. A warming blanketwas used on the trunk. The table was placed in reverse Trendelenburg until the trunk was vertical. Table was rotated for better access to the involved shoulder and locked in place. The operative shoulder was cleansed and sterilized with ChloraPrep solution and draped in a sterilefashion with the arm draped freely. Ioban tapes were used A spider arm support was utilized to support the arm. A second preoperative brief and surgical site identification was accomplished. Evaluation under anesthesia of the surgical shoulder versus the contralateral shoulder was done. With the scapula stabilized he had 90 degrees of forward elevation, 80 degrees of abduction in scapular plane and 0 degrees of external rotation at 0 degrees abduction. The contralateral shoulder had 100 degrees of forward elevation, 90 degrees of abduction and 50 degrees of external rotation at 0 degrees of abduction. A spinal needle was then used to deliver 30 cc of lactated Ringer's fluid into the glenohumeral joint. After anesthetizing the planned site with 5 cc of quarter percent Marcaine with epinephrine, a standard posterior arthroscopic portal was made and a 30 degree arthroscope cannula with dull obturator were atraumatically introduced into the glenohumeral joint. Standard inspection involve both a 30degree and 70 degree arthroscope. The subscapularis, supraspinatus, infraspinatus and teres minor insertions were inspected. The long head of the biceps was inspected and a ramp test was accomplished. The labrum was inspected circumferentially. The superior, middle and inferior glenohumeral ligaments were inspected as well. Once intra-articular pathology was addressed the arthroscope was removed and again using a 30 degree arthroscope starting with a dull obturator the arthroscope was placed into the subacromial space toward the anterolateral corner of the acromion and a subacromial bursal inspection was accomplished. Bursal tissue was removed to expose the bursal surface of the infraspinatus, supraspinatus and rotator interval capsule. The undersurface of the acromion was exposed posteriorly to the deltoid attachment sites which were carefully preserved, laterally to the deltoid attachment sites which were carefully preserved, anterolaterally to the coracoacromial ligament attachment site which was carefully preserved, anteriorly to the coracoacromial ligament which was carefully preserved, anteromedially to the undersurface of the acromioclavicular joint which was exposed and visualized with the inferioracromioclavicular ligaments left alone. Posteromedially the superior part of the spine of the scapula above the infraspinous and supraspinous muscles was identified. Note that the skilled hands of a physician assistant signal maintainer were necessary for this procedure in order to guide the arthroscope for visualization, to apply appropriate tension to tendons as to not over or under tension them during repair as well as to pass sutures and tie knots. Findings: Arthroscopic findings revealed that the rotator interval capsule was obliterated with scar tissue with thickened scar tissue and coracohumeral ligament attachments to the coracoid base. The long headof the biceps was absent. The humeral head and glenoid had diffuse grade 2 arthrosis but no unstable cartilage fragments were noted. The rotator interval capsule was removed with a radiofrequency device to expose the superior rolled edge of the subscapularis. Adhesions to this were divided and a 270 degrees release of the tendon was accomplished. Careful inspection with a 70 degree arthroscope revealed the superior 25% of the tendon was detached from the superior lesser tuberosity but the rest of the tendon appeared to be intact. There also was significant impingement by the coracoid process which was nearly touching the subscapularis tendon. A cortical plasty was performed using a 4.5 mm bone-cutting shaver removing roughly a 5 mm wafer of bone from the undersurface of the coracoid process. When this was complete the 4.5 mm shaver could be easily passed. The coracoid and the subscapularis. Hemostasis was maintained the radiofrequency device and the conjoined tendon as well as coracoacromial ligament and pectoralis minor attachments were all intact. The subscapularis was repaired using a standard posterior portal for viewing with a 70 degree arthroscope, a rotator interval portal anteriorly and an anterosuperolateral portal which was determined with percutaneous spinal needle placement. The footprint was debrided bleeding cortical bone. The tendon was repaired using a Dudley and nephew 4.75 mm Regenesorb anchor. The ultra tape components werepassed using a 70 degree Accu pass in a horizontal mattress fashion. The ultra braid limbs were passed between them but one medial and one lateral to them to create a modified Lester-Ivan construct. With the lateral ultra braid under tension laterally the 2 ultra tapes were tied together through a 6 mm clear cannula through the rotatable portal using standard arthroscopic knot-tying techniques with the tails transected when complete. The ultra braid limbs were tied over this to create a modified Lester-Ivan repair. This was found to have excellent purchase. With the capsular release the shoulder could not be externally rotated 50 degrees and no gapping is noted of the subscapularis repair. The supraspinatus appeared to be re-torn viewing from the articular surface. There were sutures remaining in the bone without any failure of anchors but with tearing of the tendon around the sutures noted. In addition there was some extension of the tear into the infraspinatus more posteriorly withsome delamination and differential linear tearing to create an L-shaped tear. The labrum was intactcircumferentially otherwise and the teres minor was intact as was most of the infraspinatus inferiorly. The arthroscope was then placed in subacromial space where there was a severe amount of subacromialbursitis and adhesions. This was treated with lysis of adhesions using combination of a radiofrequency device as well as a 4.5 mm shaver to further expose the undersurface of the acromion, the undersurface of the acromioclavicular joint, the spine of the scapula posteromedially, the deltoid attachment sites posteriorly and laterally in the coracoacromial ligament anteriorly and anterolaterally. The adhesions surrounding the rotator cuff anteriorly laterally and posteriorly were also divided taking care to protect the axillary nerve. Once this was all complete it was felt that the prior acromioplasty and distal clavicle resection were adequate with no further bony impingement noted. When the bursal tissue was removed from the bursal side of the rotator cuff the complex tear was noted. There was bursal attachment of the anterior portion of the prior repair of the supraspinatus with some failure on the articular side involving the sutures of the medial row anchor there. Then there was a full- thickness tear of the central and posterior part of the supraspinatus which extended into the infraspinatus slightly where there was noted to be an L-shaped extension along with some delamination and some smaller parrot-beak type tears of the tendon. This was debrided back to healthy tissue using a 4.5 mm shaver placed through a 50 yard line portal which held a passport cannula. The bursal side of the anterior supraspinatus was further detached with 11 blade scalpel to gain access to the entire greater tuberosity which was debrided bleeding cortical bone using a combination of a 4.5 mm shaver to 5.5 mm bur. The suture material encountered was transected with a basket biter and removed with locking graspers. Once again no suture anchors were noted or seen nor did they appear lo ose. They were covered with bone. The coracohumeral ligament scar tissue was removed completely off the coracoid process to allow thesupraspinatus to be pulled laterally back to its anatomic footprint. The tear was then repaired using a Arthrex speed bridge kit. The posterior medial row anchor had its swedged fiber tape passed in a two-stage fashion through the appropriate portion of the deep surface of the torn posterior supraspinatus and then the appropriate location on the delaminated superior leaf of the posterior supraspinatus such that when traction was applied laterally it would reduce both layers to their anatomic footprint. The 2 limbs of FiberWire from this anchor were then placed in the differential fashion to cl ose the L-shaped extension into the infraspinatus as well as to address the delaminated leaf of theposterior supraspinatus and superior infraspinatus. Once again this was placed in a fashion to reduce the repair anatomically. A separate #2 ultra braid was passed in a [id number]-[id number] fashion through the passport cannula using the Arthrex scorpion device to pass the sutures to create a [id number]-hq-drsr repair of the more lateral extension of this L-shaped tear. These tails were not transected but were satisfied with the tails from the posterior medial row anchor. The anterior medial row anchor was passed through the anterior supraspinatus placing the swedged fiber tape and the anterior one third ofthe supraspinatus but also this had to be passed through 2 layers of delaminated tendon. The FiberWire sutures from this anchor were passed in horizontal mattress fashion at the junction of the anterior supraspinatus and rotator interval capsule which had its lateral component still intact to further secure the rotator cable anterior insertion. A chondral pick was used to microfracture the greater tuberosity for vascular ingrowth channels. The sutures were all brought out through the passport cannula laterally. Note that there was this 50 yard line portal containing the passport cannula, accessory portal just 2 cm anterior and posterior to this but also about 3 cm lateral to the acromion for visualization and suture management. The paraacromial portal was placed at the 50 yard line level but immediately distal acromion to place the medial row anchors. With selected sutures brought out through the para acromial portal through a 6 mm clear cannula therest of the sutures were kept laterally. The arm was placed with the elbow at the patient's side inneutral rotation and with traction applied the sutures to the cannula were tightened and tied usingstandard arthroscopic knot-tying techniques. Once this was complete the tendon was now sitting in its anatomic position but the lateral row was not yet secured. The swedged portion of the fiber tape was then removed from each of them and one fiber tape and onefiber wire from each suture as well as one limb of the ultra braid from the side to side repair were brought out through the passport cannula. The arm was abducted 30 degrees, external rotated 30 degrees and soft tissue was cleared on the anterolateral humerus metaphysis roughly 2 cm distal to the anterior lateral edge of the greater tuberosity insertion site. The fiber tape and fiber wire and ultra braid suture tails were passed through the eyelet of the anchor, the awl dilator was utilized, the sutures were tensioned and the anchor fully locked in place and seated. The tails were transectedthe bony surface and the bone a suture was set aside through a separate portal. In a similar fashion with the arm abducted 30 degrees and internally rotated the posterior lateral row swivel lock anchor from the speed bridge kit was placed using remaining tails of fiber tape, FiberWire and ultra braid. Once this was accomplished and those tails transected the bony surface the tendon was now found to be anatomically repaired. It was stable to probe palpation full range of motion of the shoulder. The bonus sutures and all of the lateral anchors were no longer necessary and were removed. Once the procedure was completed the arthroscopic portals were repaired with 3-0 Prolene simple sutures. That at the end of the procedure examination of the patient's shoulder range of motion showed it arlet identical to the contralateral shoulder. With this scapula stabilized for elevation was 100 degrees, abduction 90 degrees and external rotation 50 degrees. The incisions were cleansed and dressed. The arthroscopic portals were covered with Adaptic. The arthroscopic portals were then covered with 4 x 4 gauzes and ABD pads and all was held in place with foam tape. The patient was then placed in a Cryo/Cuff and UltraSling with abduction pillow. A debrief was accomplished. Sponge and needle counts were noted to be accurate. There were no adverse clinical events to report. Once the patient was safely transferred to the hospital stretcher all non- anesthesia personnel leftthe room and the anesthesia team performed an extubation per COVID 19 precaution protocol. After 10minutes the staff was able to return to the room. The patient was , taken to the PACU in stable condition suffering a minimal blood loss and no complications. The patient received 1000 cc of lactated Ringer's intraoperatively. There were no specimens or cultures sent and no drains left behind. This note was prepared with the aid of voice recognition technology. My attempts at proofreading sometimes misses mistakes. All attempts are made to reproduce pertinent clinical information but sometimes grammatical mistakes and inappropriate word spelling occurs. I apologize for any inconvenience. documented in this encounter Miscellaneous Notes * Brief Op Note - Murtaza Negro PA-C - 04/21/2020 9318 EDT Date of procedure: 04/21/20 Pre op dx: Left shoulder supraspinatus and subscapularis tears and adhesive capsulitis Post op dx:same Procedure: Left shoulder arthroscopic revision supraspinatus tendon repair and subscapularis repairwith lysis of adhesions Surgeon: Agusto Howell MD Assist: Murtaza Negro PA-C Anesthesia: General and regional EBL: minimal IVF: 1000 CC Specimens: none To RR in Stable condition. Murtaza Negro PA-C Due to the expected severity of pain with this procedure, a dose higher than the MME was prescribed. documented in this encounter Plan of Treatment Not on file documented as of this encounter Procedures Procedure Name Priority Date/Time Associated Diagnosis Comments IMPLANT RECORD - SCANNED 04/29/2020 11:46 EDT SHOULDER ARTHROSCOPY W/LYSIS/RESECTW/WO MANIP SEC 04/21/2020 11:44 EDT Rotator cuff syndrome, unspecified laterality Strain of left trapezius muscle, subsequent encounter Sprain, coracoclavicular ligament, left, subsequent encounter Arthritis of left shoulder region Adhesive bursitis of left shoulder Special Needs Arthrex 1 mm Allograft needed ARTHROSCOPY, SHOULDER, SURG/L; W/ROTATOR CUFF REPA 04/21/2020 11:44 EDT Rotator cuff syndrome, unspecified laterality Strain of left trapezius muscle, subsequent encounter Sprain, coracoclavicular ligament, left, subsequent encounter Arthritis of left shoulder region Adhesive bursitis of left shoulder Special Needs Arthrex 1 mm Allograft needed POC US ANESTHESIA NERVE BLOCK INTERSCALENE Routine 04/21/2020 10:36 EDT ECG REPORT - SCANNED 04/16/2020 14:50 EDT ECG REPORT - SCANNED 04/15/2020 13:13 EDT documented in this encounter Results * IMPLANT RECORD - SCANNED (04/29/2020 11:46 EDT) 04/29/2020 11:4 6 EDT us Scan 2 Complex Human Resources Manager PROCEDURE/MINOR SURGICAL OR DERABLES Final Result * POC US ANESTHESIA NERVE BLOCK INTERSCALENE (04/21/2020 10:36 EDT) Narrative 04/21/2020 10:36 EDT This is a non-reportable exam. us Mikael Nolasco MD IMG US POC ORDERABLES Final Result * ECG REPORT - SCANNED (04/16/2020 14:50 EDT) 04/16/2020 14:5 0 EDT us Scan 2 Complex Human Resources Manager PROCEDURE/MINOR SURGICAL OR DERABLES Final Result * ECG REPORT - SCANNED (04/15/2020 13:13 EDT) 04/15/2020 13:1 3 EDT us Scan 2 Complex Human Resources Manager PROCEDURE/MINOR SURGICAL OR DERABLES Final Result documented in this encounter Visit Diagnoses Diagnosis Delayed emergence from anesthesia Rotator cuff syndrome, unspecified laterality Strain of left trapezius muscle, subsequent encounter Sprain, coracoclavicular ligament, left, subsequent encounter Arthritis of left shoulder region Unspecified arthropathy, shoulder region 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 documented in this encounter Administered Medications Inactive Administered Medications - up to 3 most recent administrations Medication Order MAR Action Action Date Dose Rate Site acetaminophen (TYLENOL) 500 mg tablet 1 dose, Starting on Mon04/21/20 at 1705, Until Mon04/21/20 at 1709 acetaminophen (TYLENOL) tablet 1,000 mg 1,000 mg, oral, PRE-OP ONCE, 1 dose, On Mon04/21/20 at 1000, Routine, Preprocedure Given 04/21/2020 10:13 EDT 1,000 mg acetaminophen (TYLENOL) tablet 1,000 mg 1,000 mg, oral, PACU ONCE, 1 dose, On Mon04/21/20 at 1730, Routine, Preprocedure Given 04/21/2020 17:09 EDT 1,000 mg bupivacaine-EPINEPHrine (PF) 0.25 %-1:200,000 injection As needed, Starting on Mon04/21/20 at 1448, Until Mon04/21/20 at 1448, Routine, Intraprocedure Given 04/21/2020 14:48 EDT 12 mL celecoxib (CELEBREX) capsule 200 mg 200 mg, oral, PRE-OP ONCE, 1 dose, On Mon04/21/20 at 1000, Routine, Preprocedure Given 04/21/2020 10:14 EDT 200 mg lactated ringers (LR) infusion at 25 mL/hr, intravenous, CONTINUOUS, Starting on Mon04/21/20 at 1000, Until Mon04/21/20 at 2007, Routine, Preprocedure New Bag 04/21/2020 15:44 EDT Continued by Anesthesia 04/21/2020 11:54 EDT New Bag 04/21/2020 10:02 EDT 25 mL/hr lactated ringers (LR) infusion at 75 mL/hr, intravenous, CONTINUOUS, Starting on Mon04/21/20 at 1615, Until Mon04/21/20 at 2007, Routine, Recovery (only) Rate Documented 04/21/2020 16:05 EDT 75 mL/hr lactated Ringers 3,000 mL with EPINEPHrine (ADRENALIN) 1 mL As needed, Starting on Mon04/21/20 at 1447, Until Mon04/21/20 at 1448, Routine, Intraprocedure Given 04/21/2020 15:11 EDT 36,000 mL oxyCODONE (ROXICODONE) immediate release tablet 5-10 mg 5-10 mg, oral, EVERY 30 MINUTES PRN, 2 doses, Starting on Mon04/21/20 at 1557, Until Mon04/21/20 at 1759, Pain, Routine, Recovery (only) Given 04/21/2020 17:07 EDT 10 mg pregabalin (LYRICA) capsule 75 mg 75 mg, oral, PRE-OP ONCE, 1 dose, On Mon04/21/20 at 1000, Routine, Preprocedure Given 04/21/2020 10:14 EDT 75 mg documented in this encounter Active and Recently Administered Medications Times are shown in EDT. Scheduled Medication Order 04/19/2020 04/20/2020 04/21/2020 acetaminophen (TYLENOL) tablet 1,000 mg (COMPLETED) 1,000 mg, oral, PRE-OP ONCE, 1 dose, On e 04/21/20 at 1000, Routine, Preprocedure 1013 (Given - Provid er: Beckie Valdez RN) acetaminophen (TYLENOL) tablet 1,000 mg (COMPLETED) 1,000 mg, oral, PACU ONCE, 1 dose, On Mon04/21/20 at 1730, Routine, Preprocedure 1709 (Given - Provid er: Laurence Harrison RN) ceFAZolin (ANCEF) syringe 2 g (COMPLETED) 2 g, intravenous, Administer over 10 Minutes, PRE-OP ONCE, 1 dose, On e 04/21/20 at 1000, Routine, Preprocedure 1207 (Given - Provid er: Yolis Casas APRN) celecoxib (CELEBREX) capsule 200 mg (COMPLETED) 200 mg, oral, PRE-OP ONCE, 1 dose, On 04/21/20 at 1000, Routine, Preprocedure 1014 (Given - Provid er: Beckie Valdez RN) pregabalin (LYRICA) capsule 75 mg (COMPLETED) 75 mg, oral, PRE-OP ONCE, 1 dose, On 04/21/20 at 1000, Routine, Preprocedure 1014 (Given - Provid er: Beckie Valdez RN) Continuous Medication Order 04/19/2020 04/20/2020 04/21/2020 lactated ringers (LR) infusion at 25 mL/hr, intravenous, CONTINUOUS, Starting on Mon04/21/20 at 1000, Until Mon04/21/20 at 2007, Routine, Preprocedure 1002 (New Bag - Prov ider: Beckie Valdez RN)1154 (Continued by Anesthesia - Provider: Yolis Casas APRN)1544 (New Bag - Provider: Yolis Casas APRN)1552 (Completed - Provider: Yolis Casas APRN) lactated ringers (LR) infusion at 75 mL/hr, intravenous, CONTINUOUS, Starting on Mon04/21/20 at 1615, Until Mon04/21/20 at 2007, Routine, Recovery (only) 1605 (Rate Documente d - Provider: Laurence Harrison RN) PRN Medication Order 04/19/2020 04/20/2020 04/21/2020 bupivacaine-EPINEPHrine (PF) 0.25 %-1:200,000 injection (CANCELED) As needed, Starting on Mon04/21/20 at 1448, Until Mon04/21/20 at 1448, Routine, Intraprocedure 1448 (Given - Provid er: Agusto Howell III, MD - Comment: left shoulder) lactated Ringers 3,000 mL with EPINEPHrine (ADRENALIN) 1 mL (CANCELED) As needed, Starting on Mon04/21/20 at 1447, Until Mon04/21/20 at 1448, Routine, Intraprocedure 1447 (Canceled Entry - Provider: Agusto Howell III, MD - Comment: left shoulder)1511 (Given - Provider: Agusto Howell III, MD - Comment: left shoulder) oxyCODONE (ROXICODONE) immediate release tablet 5-10 mg (CANCELED) 5-10 mg, oral, EVERY 30 MINUTES PRN, 2 doses, Starting on Mon04/21/20 at 1557, Until Mon04/21/20 at 1759, Pain, Routine, Recovery (only) 1707 (Given - Provid er: Laurence Harrison RN) documented in this encounter Orders Medications Ordered That Nish ht Not Have Been Administered Count Last Ordered Date First Ordered Date atropine 0.1 mg/mL syringe 0.5 mg 1 020 ceFAZolin (ANCEF) syringe 2 g 1 04/21/2020 diphenhydrAMINE (BENADRYL) i njection 12.5 mg 1 04/21/2020 fentaNYL citrate (PF) injection 25-50 mcg 1 04/21/2020 lidocaine (PF) 10 mg/mL (1 % ) injection 2 mg 1 04/21/2020 naloxone (NARCAN) injection 0.2 mg 1 2019 ondansetron (PF) (ZOFRAN) injection 4 mg 1 04/21/2020 Nursing Count Last Ordered Date First Orde red Date APPLY WARMING BLANKET 1 04/21/[address] SEQUENTIAL COMPRESSION DEVICE 1 04/21 Transfer Count Last Ordered Date First Orde red Date NON-TEACHING SERVICE 1 04/21/2020 Discharge Count Last Ordered Date First Orde red Date DISCHARGE PATIENT 1 04/21/2020 documented in this encounter Care Teams Stock Sorter Relationship Specialty Start Date End Date Lasha Angelo MD PCP - General Family Medicine - Primary Care 01/09/20 06/23/21 documented as of this encounter
--- OUTSIDE RECORDS SUMMARY | 2024-11-26 13:58 | XMS_ITS | Encounter Summary ---
Author Organization [facility] Address [address] [place] [address] Care Team Providers Care Feed Elevator Worker Name Role Phone Lasha Angelo MD Primary Care Provider [phone] Reason for Visit * Reason Onset Date Comments Medications Refill 04/22/2020 Encounter Details Date Type Department Care Team (Late st Contact Info) Description 04/22/2020 Refill [facility] Orthopedic Surgery - [address] [place] [address] Murtaza Negro, PAAleshaC [address] [place] [address] Medications Refill Social History Tobacco Use Types Packs/Day Years [...] 9:28 EDT documented as of this encounter Ordered Prescriptions Prescription Sig Dispense Quantity Refills Last Filled Start Date End Date oxyCODONE (ROXICODONE) 5 mg immediate release tablet Take 1 Tab by mouth every 4 hours as needed for Pain. Daily Max: 30 mg 10 Tab 04/23/2020 10/22/2020 documented in this encounter Miscellaneous Notes * Telephone Encounter - Bri Noland RN - 04/22/2020 1156 EDT New Rx for oxycodone pended to [facility] to be sent to [facility] in [facility] * Telephone Encounter - Ahmet Seth - 04/22/2020 1106 EDT [facility] ordered two meds yesterday for this patient. However, pharmacist called with the following message: Patient must use [facility] in [place], [place] to fill RX ordered yesterday by [facility], per insurance provider. Promethazine. Oxycodone. The promethazine can be transferred digitally, but the oxycodone needs to be reordered and re-sent to [facility] in [place]. Current Oxycodone order will be cancelled by the pharmacist. Patient is aware he needs to go to [facility] in [place] to shredder picker scripts, but will need to be called once the new Rx is sent. Myrna, pharmacist, CB: [phone]. Thank you, Ahmet documented in this encounter Plan of Treatment Not on file documented as of this encounter Visit Diagnoses Not on filedocumented in this encounter Discontinued Medications Medication Sig Discontinue Reason Start Date End Da te oxyCODONE (ROXICODONE) 5 mg immediate release tablet Take 1 Tab by mouth every 4 hours as needed for Pain. Daily Max: 30 mg Reorder 04/21/2020 04/22/2020 documented as of this encounter Care Teams Feed Elevator Worker Relationship Specialty Start Date End Date Lasha Angelo MD PCP - General Family Medicine - Primary Care 01/09/20 06/23/21 documented as of this encounter
--- OUTSIDE RECORDS SUMMARY | 2024-11-26 13:58 | XMS_ITS | Encounter Summary ---
Author Organization [facility] Address [address] [place] [address] Care Team Providers Care Therapeutic Consultant Name Role Phone Sangita Nolasco MD Primary Care Provider [phone] Encounter Details Date Type Department Care Team (Late st Contact Info) Description 09/10/2022 Lab Requisition [facility] Pathology & Laboratory Medicine - [facility] [address] [place] [address] Outr Resulting Lab, Provider Social History Tobacco [...] Associated Diagnosis Comments PSA TOTAL, DIAGNOSTIC Routine 09/09/2022 8:45 EST documented in this encounter Results * PSA TOTAL, DIAGNOSTIC (09/09/2022 8:45 EST) PSA 3.7 <=6.5 ng/mL 09/12/2022 9:04 EST [facility] Blood VENOUS BLOOD / Unknown 09/09/2022 8:45 EST 09/11/2022 16:44 EST Narrative [facility] - 09/12/2022 9:04 EST NOTE: Serum PSA concentration should not be interpreted as absolute evidence for the presence or absence of malignant disease. Assayed on Hyginexaur XPT using chemiluminescent technology.??Values obtained by using different assay methods cannot be used interchangeably. us Provider Outr Resulting Lab CHEMISTRY & BLOOD GA S ORDERABLES Final Result [facility] [address] [place] [address] documented in this encounter Visit Diagnoses Not on filedocumented in this encounter Care Teams Therapeutic Consultant Relationship Specialty Start Date End Date Sangita Nolasco MD PCP - General 06/24/21 documented as of this encounter
--- OUTSIDE RECORDS SUMMARY | 2024-11-26 13:58 | XMS_ITS | Encounter Summary ---
Author Organization [facility] Address [address] [place] [address] Care Team Providers Care Clinical Support Associate Name Role Phone Lasha Angelo MD Primary Care Provider [phone] Reason for Visit * Reason Comments Pain Pain Score: 2-10, Ra diates: All 5 fingers and up to elbow, Duration: 1+ years * Referral (Routine/Next Available) - Order Cancelled Specialty Diagnoses / Procedures Referred By Nelia sanford Referred To Contact Orthopedic Surgery Diagnoses Left carpal tunnel syndrome Agusto Howell III, MD Phone: tel: fax: Murtaza Liang MD Phone: tel: fax: Referral ID Status Reason Start Date Expiration Date Visits Requested Visits Authorized [id number] Order Cancelled Specialty Services Required 01/11/2021 1 1 Encounter Details Date Type Department Care Team (Late st Contact Info) Description 01/15/2021 11:30 EDT Office Visit [facility] Orthopedic Surgery - [address] [place] [address] Murtaza Liang MD [address] [place] [address] Left carpal tunnel syndrome (Primary Dx) Social History Tobacco Use Types [...] - - Weight 73 kg (161 lb) 01/15/2021 1126 EDT per pt Height 172.7 cm (5' 8) 01/15/2021 1126 EDT per pt Body Mass Index 24.48 01/15/2021 1126 EDT documented in this encounter Progress Notes * Murtaza Liang MD - 01/15/2021 1130 EDT Chief complaint: Pain of the Left Wrist (Pain Score: 2-10, Radiates: All 5 fingers and up to elbow,Duration: 1+ years/) HPI: The patient is a 75-year-old [id number] man who presents with pain in his left wrist associated with numbness and tingling in his fingers. Symptoms began about a year ago following his left shoulder surgery. He rates his pain is a 2-10 out of 10. He describes numbness and tingling in all of the fingers. He has not had any treatment for this problem. The patient recently had an EMG/nerve conduction study performed by Dr. Russell which demonstrated moderate to severe left carpal tunnel syndrome with no evidence of ulnar neuropathy or cervical radiculopathy. The past medical, family and social history [...] regular and nonlabored without audible wheezing. Musculoskeletal: Left wrist and hand: Tenderness over the carpal tunnel. Wrist range of motion is full. Tinel's signis positive at the carpal tunnel and he has a positive carpal compression test. Phalen's test is also positive. At rest the patient has diminished sensation to light touch in the median nerve distribution. He has good capillary refill throughout the hand. There is no evidence of thenar atrophy but the patient does have slightly diminished billing and accounting staff assistant strength. ASSESSMENT/PLAN: Encounter Diagnosis Name Primary? Left carpal tunnel syndrome Yes The patient has left carpal tunnel syndrome that is in the moderate to severe category. We talked about treatment options. I do not think that a brace would be helpful for the patient and the patientwould prefer definitive management of this problem. He would like to avoid a cortisone injection ifpossible. Instead he would like to move forward with surgical intervention doing an endoscopic carpal tunnel release. I believe that this is an appropriate next step. SURGICAL RISKS AND BENEFITS: The patient understands [...] care as described in the above note. No procedures were performed at the time of the visit. documented in this encounter Plan of Treatment Not on file documented as of this encounter Visit Diagnoses Diagnosis Left carpal tunnel syndrome- Primary Carpal tunnel syndrome documented in this encounter Orders Case Request Count Last Ordered Date First Orde red Date CASE REQUEST OPERATING ROOM 1 01/15/2021 documented in this encounter Care Teams Clinical Support Associate Relationship Specialty Start Date End Date Lasha Angelo MD PCP - General Family Medicine - Primary Care 01/09/20 06/23/21 documented as of this encounter
--- OUTSIDE RECORDS SUMMARY | 2024-11-26 13:58 | XMS_ITS | Encounter Summary ---
Author Organization [facility] Address [address] [place] [address] Care Team Providers Care Fermenter Champagne Name Role Phone Lasha Angelo MD Primary Care Provider [phone] Reason for Visit * Auth/Cert Specialty Diagnoses [...] 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] Procedures [place] SHLDR ARTHROSCOP,LYSE ADHESNS [place] SHLDR ARTHROSCOP,SURG,W/ROTAT CUFF REPR Agusto Howell III, MD [address] [place] [address] Phone: tel: fax: Referral ID Status Reason Start Date Expiration Date Visits Re quested Visits Authorized [id number] 02/27/2020 1 1 Encounter Details Date Type Department Care Team (Latest Contact Info) Description 04/21/2020 9:28 EDT - 04/21/2020 17:59 EDT Hospital Encounter [facility] FA Operating Room [address] [place] [address] Agusto Howell III, MD [address] [place] [address] Discharge Disposition: Home or Self [...] Sign Reading Time Taken Comments Blood Pressure 124/65 04/21/2020 1730 EDT Pulse - - Temperature 36.1 ??C (97 ??F) 04/21/2020 1730 EDT Respiratory Rate 15 04/21/2020 1730 EDT Oxygen Saturation 98% 04/21/2020 1730 EDT Inhaled Oxygen Concentration - - Weight 73.4 kg (161 lb 13.1 oz) 04/21/2020 0949 EDT Height - - Body Mass Index 24.61 02/27/2020 1020 EDT documented in this encounter Discharge Instructions * Discharge Instr - Activity* Murtaza Negro PA-C - 04/21/2020 16:16 EDT [facility] NotaryAct SHOULDER ARTHROSCOPY POSTOPERATIVE INSTRUCTIONS (Large Rotator Cuff [...] Narcotics can lead to constipation; using an wkcp-icg-frtxacm stool softener may be helpful. Phenergen Colace yhnq-igk-conisws stool softeners Things to Call Your Surgeon [...] portion of this exam. Source Note - WELDER TECH, SCAN 2 - 04/15/2020 13:13 EDT documented [...] infraspinatus repair 7. Arthroscopic coracoplasty Surgeon: Dante Bread Wrapping Machine Feeder: Murtaza Negro PA-C (There were no orthopedic residents available to assist with this procedure. Please see below) Anesthesia: Preoperative interscalene nerve block plus general endotracheal plus local Brief clinical history: This is a 74-year-old ambidextrous male who injured his left shoulder while at work on 08/27/2019. He had a prior left shoulder arthroscopic supraspinatus repair, subacromial decompression and distalclavicle excision in 2013 and has done quite well with that [...] that the skilled hands of a physician funeral home assistant were necessary for this procedure in order [...] noted or seen nor did they appear loose. They were covered with bone. The coracohumeral [...] #2 ultra braid was passed in a [id number] fashion through the passport cannula using the Arthrex scReva Systemsion device to pass the sutures to create a uncu-ih-decm repair of the more lateral extension of [...] Note - Murtaza Negro PA-C - 04/21/2020 1608 EDT Date of procedure: 04/21/20 Pre op [...] 04/29/2020 11:4 6 EDT us Scan 2 Planning Consultant PROCEDURE/MINOR SURGICAL OR DERABLES Final Result * POC US ANESTHESIA NERVE BLOCK INTERSCALENE (04/21/2020 10:36 EDT) Narrative 04/21/2020 10:36 EDT This is a non-reportable exam. us Mikael Nolasco MD IMG US POC ORDERABLES Final Result * ECG REPORT - SCANNED (04/16/2020 14:50 EDT) 04/16/2020 14:5 0 EDT us Scan 2 Planning Consultant PROCEDURE/MINOR SURGICAL OR DERABLES Final Result * ECG REPORT - SCANNED (04/15/2020 13:13 EDT) 04/15/2020 13:1 3 EDT us Scan 2 Planning Consultant PROCEDURE/MINOR SURGICAL OR DERABLES Final Result documented in this encounter Visit Diagnoses Diagnosis Delayed emergence from anesthesia documented in this encounter Administered Medications Inactive [...] Preprocedure Given 04/21/2020 17:09 EDT 1,000 mg celecoxib (CELEBREX) capsule 200 mg 200 mg, [...] on Mon04/21/20 at 1615, Until Mon04/21/20 at 2006, Routine, Recovery (only) Rate Documented 04/21/2020 16:05 EDT 75 mL/hr oxyCODONE (ROXICODONE) immediate release tablet 5-10 mg [...] dose, On Mon04/21/20 at 1000, Routine, Preprocedure 1013 (Given - Provid er: Beckie Valdez RN) acetaminophen (TYLENOL) tablet 1,000 mg (COMPLETED) 1,000 mg, oral, PACU ONCE, 1 dose, On Mon04/21/20 at 1730, Routine, Preprocedure 1709 (Given - Provid er: Laurence Harrison RN) ceFAZolin (ANCEF) syringe 2 g (COMPLETED) 2 g, intravenous, Administer over 10 Minutes, PRE-OP ONCE, 1 dose, On Mon04/21/20 at 1000, Routine, Preprocedure 1207 (Given - Provid er: Yolsi Casas APRN) celecoxib (CELEBREX) capsule 200 mg (COMPLETED) 200 mg, oral, PRE-OP ONCE, 1 dose, On 04/21/20 at 1000, Routine, Preprocedure 1014 (Given - Provid er: Beckie Valdez, RN) pregabalin (LYRICA) capsule 75 mg (COMPLETED) 75 mg, oral, PRE-OP ONCE, 1 dose, On e 04/21/20 at 1000, Routine, Preprocedure 1014 (Given [...] needed, Starting on Mon04/21/20 at 1448, Until 04/21/20 at 1448, Routine, Intraprocedure 1448 (Given - Provid er: Agusto Howell III, MD - Comment: left shoulder) lactated Ringers 3,000 mL with EPINEPHrine (ADRENALIN) 1 mL (CANCELED) As needed, Starting on 04/21/20 at 1447, Until 04/21/20 at 1448, Routine, Intraprocedure 1447 (Canceled Entry - Provider: Agusto F Lawlis III, MD - Comment: left shoulder)1511 (Given [...] 0.1 mg/mL syringe 0.5 mg 1 020 bupivacaine-EPINEPHrine (PF) 0.25 %-1:200,000 injection 1 04/21/2020 ceFAZolin (ANCEF) syringe 2 g 1 04/21/2020 diphenhydrAMINE (BENADRYL) i njection 12.5 mg 1 04/21/2020 fentaNYL citrate (PF) injection 25-50 mcg 1 04/21/2020 lactated Ringers 3,000 mL wi th EPINEPHrine (ADRENALIN) 1 mL 1 04/21/2020 lidocaine (PF) 10 mg/mL (1 [...] 04/21/2020 documented in this encounter Care Teams Fermenter Champagne Relationship Specialty Start Date End Date Lasha Angelo MD PCP - General Family Medicine - Primary Care 01/09/20 06/23/21 documented as of this encounter
--- OUTSIDE RECORDS SUMMARY | 2024-11-26 13:58 | XMS_ITS | Encounter Summary ---
Author Organization [facility] Address [address] [place] [address] Care Team Providers Care Hob Machine Operator Name Role Phone Lasha Angelo MD Primary Care Provider [phone] Reason for Visit * Reason Onset Date Comments Letter for School/Work 08/03/2020 Encounter Details Date Type Department Care Team (Late st Contact Info) Description 08/03/[address] [facility] Orthopedic Surgery - [address] [place] [address] Agusto Howell III, MD [address] [place] [address] Letter for School/Work Social History [...] Telephone Encounter - Kanwal Stanford MA - 08/06/2020 0905 EDT Patient stated he does not want the letter until he comes in on 08/17/2020. He will get the note that day as it will be more accurate information. * Telephone Encounter - Fanny Castaneda - 08/03/2020 4959 EDT Rayo phoned had to r/s his appt w/ [facility] as [place] had gone [place] of [place], pt now scheduled to be seen on 08/17, Rayo is asking for a letter from Dr Howell stating when he can return to work for light duty. Please call pt when ready or w/ questions. # [phone] documented in this encounter Plan of Treatment Not on file documented as of this encounter Visit Diagnoses Not on filedocumented in this encounter Care Teams Hob Machine Operator Relationship Specialty Start Date End Date Lasha Angelo MD PCP - General Family Medicine - Primary Care 01/09/20 06/23/21 documented as of this encounter
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
--- OUTSIDE RECORDS SUMMARY | 2024-11-26 13:58 | XMS_ITS | Encounter Summary ---
Author Organization [facility] Address [address] [place] [address] Care Team Providers Care Service Tester Name Role Phone Sangita Nolasco MD Primary Care Provider [phone] Reason for Visit * Reason Onset Date Comments Paperwork request 08/20/2021 Encounter Details Date Type Department Care Team (Late st Contact Info) Description 08/20/2021 Telephone [facility] Orthopedic Surgery - [facility] Tico Patel [address] [place] [address] Murtaza Liang MD [address] [place] [address] Paperwork request Social History Tobacco [...] * Telephone Encounter - Melina Ramos - 08/30/2021 0823 EST Received completed paperwork from Clinic on 08/30/21. Faxed to Scott Michele at [phone] on 08/30/21 Scanned into patients chart on 08/30/21 * Telephone Encounter - Melina Ramos - 08/26/2021 1432 EST Received Disability paperwork from [facility]. Received 08/26/21. Prefilled out, labeled appropriately and given to clinic for completion on 08/26/21. Melina Ramos * Telephone Encounter - Murtaza Liang MD - 08/20/2021 1159 EDT I am comfortable having him out of work for the next 2 months. * Telephone Encounter - Ahmet Seth - 08/20/2021 0955 EDT Patient called. SWF b/l CTS patient. He states he was told call back if he is unable to work so that he can get a work note relieving him from duty. He states he still drops things on the left hand (Recent [employer]), he also has pain radiating up the arm. Patient states he has STD case. He states he is not making much gains, and requests to be out of work for the next two months. Night pain is gone, but performing his job with two hands is impossible at this point. 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 Thank you, Ahmet documented in this encounter Plan of Treatment Not on file documented as of this encounter Visit Diagnoses Not on filedocumented in this encounter Care Teams Service Tester Relationship Specialty Start Date End Date Sangita Nolasco MD PCP - General 06/24/21 documented as of this encounter
--- OUTSIDE RECORDS SUMMARY | 2024-11-26 13:58 | XMS_ITS | Encounter Summary ---
Author Organization [facility] Address [address] [place] [address] Care Team Providers Care Supervisor Pipe Joints Name Role Phone Sangita Nolasco MD Primary Care Provider [phone] Reason for Visit * Auth/Cert Specialty Diagnoses / Procedures Referred By Nelia sanford Referred To Contact Diagnoses Left carpal tunnel syndrome Procedures NH WRIST ARTHROSCOP,RELEASE XVERS LIG Murtaza Liang MD [address] [place] [address] Phone: tel: fax: Referral ID Status Reason Start Date Expiration Date Visits Re quested Visits Authorized [id number] 01/15/2021 1 1 Encounter Details Date Type Department Care Team (Late st Contact Info) Description 06/24/2021 12:05 EDT - 06/24/2021 13:00 EDT Surgery [facility] OR [address] [place], [place] [address] Murtaza Liang MD [address] [place] [address] Left wrist endoscopic carpal tunnel release [85664 (CPT??)] Surgery Details Date/Time Status Location OR Service Patient Class Case Cl ass Case Type Trauma Case? 06/24/2021 1205 Posted [facility] OR [address] Outpatient Surgery H - Elective Panel 1 Procedure LRB Anes Op Region Wound Class Comments Left wrist endoscopic carpal tunnel release Left Thierno Block Wrist Class I/ Clean 10 MIN Surgeon Surgeon Role Service Panel Murtaza Liang MD Primary Orthopedics 1 documented in this encounter Social History Tobacco [...] Sign Reading Time Taken Comments Blood Pressure 140/63 06/24/2021 1024 EDT Pulse - - Temperature 35.6 ??C (96.1 ??F) 06/24/2021 1024 EDT Respiratory Rate 17 06/24/2021 1024 EDT Oxygen Saturation 100% 06/24/2021 1024 EDT Inhaled Oxygen Concentration - - Weight 81.6 kg (179 lb 14.3 oz) 06/24/2021 1024 EDT Height 172.7 cm (5' 8) 06/24/2021 1024 EDT Body Mass Index 27.35 06/24/2021 1024 EDT documented in this encounter Discharge Instructions * Discharge Instructions* Murtaza Liang MD - 06/24/2021 12:11 EDT Endoscopic Carpal Tunnel Release Orthopedics - [facility] - Dr. Liang ?? Wound and Dressing [...] your appointment please call the office at [phone]. ?? Concerns: Call our office immediately if [...] Code Departure Means Destination Home or Self Snf documented in this encounter H&P Notes * [...] Liang MD 06/24/2021 12:11 Source Note - [employer]ALSMITH, EDWARDO 2 - 06/22/2021 15:47 EDT documented in [...] room. After a procedural timeout was performed, Jovista block anesthesia was placed by the anesthesiology [...] access to the carpal tunnel. A synovial [place] was used to scrape the undersurface of [...] Recovery (only) bupivacaine (PF) (MARCAINE) 0.5% injection PRN, Starting on Nida 06/24/21 at 1301, Until Nida 06/24/21 at 1309, Routine, Intraprocedure Given 06/24/2021 13:01 EDT 10 mL Left Wrist ibuprofen (MOTRIN) tablet 800 mg 800 mg, [...] 1141 (New Bag - Prov ider: Cheri Edwards, KRISTY)1245 (Continued by Anesthesia - Provider: Murtaza Liang [...] Starting on Nida 06/24/21 at 1306, Until Inda 06/24/21 at 1539, Pain, Routine, Recovery (only) [...] 0.1 mg/mL syringe 0.5 mg 1 021 ibuprofen (MOTRIN) tablet 800 mg 1 06/24/20 lactated ringers (LR) infusion 1 06/24/2021 naloxone (NARCAN) injection 0.2 mg 1 2020 ondansetron (PF) (ZOFRAN) injection 4 mg 1 06/24/2021 Discharge Count Last Ordered Date First Orde red Date DISCHARGE PATIENT 1 06/24/2021 documented in this encounter Care Teams Supervisor Pipe Joints Relationship Specialty Start Date End Date Sangita Nolasco MD PCP - General 06/24/21 documented as of this encounter
--- OUTSIDE RECORDS SUMMARY | 2024-11-26 13:58 | XMS_ITS | Encounter Summary ---
Author Organization [facility] Address [address] [place] [address] Care Team Providers Care Shoulder Puncher Name Role Phone Lasha Angelo MD Primary Care Provider [phone] Reason for Visit * Reason Comments Follow-up Encounter Details Date Type Department Care Team (Latest Contact Info) Description 11/25/2020 13:30 EST Office Visit Vascular Surgery and Endovascular Therapy - [facility] [place] [address] [place] [address] Nurse Practitioner, [facility] V[facility] S[facility] Venous insufficiency, peripheral (Primary Dx) Social History Tobacco Use Types [...] Sign Reading Time Taken Comments Blood Pressure 134/74 11/25/2020 1332 EST Pulse 65 11/25/2020 1332 EST Temperature - - Respiratory Rate - - Oxygen Saturation 99% 11/25/2020 1332 EST Inhaled Oxygen Concentration - - Weight - - Height - - Body Mass Index - - documented in this encounter Progress Notes * Ana Smith APRN - 11/25/2020 1330 EST Mr. Barrett Salvador comes in today for evaluation of his bilateral varicose veins, right worse than left. Patient states symptoms began many years ago. Imaging taken on 09/04/2020 revealed segmental reflux in the right femoral vein and reflux in the greater saphenous vein. Barrett has worn compression stockings daily for a total of 3 months, and states his legs have stayed the same since initiating therapy . He admits that he has difficulty donning the stockings due tothe arthritis in his hands. There is currently mild swelling in the right leg. He reports no episodes of bleeding varicosities. Barrett tries to avoid standing or sitting in one position for more than 30 minutes and he does notsit with his legs crossed. 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 He driving does not allow him much time to move around or elevate his legs.He is quite active in his spare time, taking care of his log cabin in [place], [place] and his [place] house on [place]. He has not been able to do as much as usual though because of his leg pain. He feels that his varicose veins are affecting his activities of daily life. He does exercise 3-4 times per week by walking. In general, his pain level is a 3/10, which he has been treating without pain medication. He is able to tolerate Non-steroidal anti-inflammatory agents. Barrett drinks one glass of wine per night anddescribes a low salt, low sugar healthy diet. He has lost a total of 30 lbs in the past 18 months. SUMMARY: Mr. Salvador has failed a 3 month trial of compression stockings, and is a good surgical candidate. documented in this encounter Plan of Treatment Not on file documented as of this encounter Visit Diagnoses Diagnosis Venous insufficiency, peripheral- Primary Unspecified venous (peripheral) insufficiency documented in this encounter Care Teams Shoulder Puncher Relationship Specialty Start Date End Date Lasha Angelo MD PCP - General Family Medicine - Primary Care 01/09/20 06/23/21 documented as of this encounter
--- OUTSIDE RECORDS SUMMARY | 2024-11-26 13:58 | XMS_ITS | Encounter Summary ---
Author Organization [facility] Address [address] [place] [address] Care Team Providers Care Marketing Account Executive Name Role Phone Lasha Angelo MD Primary Care Provider [phone] Encounter Details Date Type Department Care Team (Latest Contact Info) Description 04/16/2020 Travel Social History Tobacco Use Types Packs/Day [...] have Coronavirus / COVID-19? No / Unsure 04/16/2020 12:39 EDT documented as of this encounter Plan of Treatment Not on file documented as of this encounter Visit Diagnoses Not on filedocumented in this encounter Additional Health Concerns Infection Onset Date Last Indicated Resolved Time R/O COVID-19 04/15/2020 04/15/2020 04/20/2020 22:1 6 EDT documented as of this encounter Care Teams Marketing Account Executive Relationship Specialty Start Date End Date Lasha Angelo MD PCP - General Family Medicine - Primary Care 01/09/20 06/23/21 documented as of this encounter
--- OUTSIDE RECORDS SUMMARY | 2024-11-26 13:58 | XMS_ITS | Encounter Summary ---
Author Organization [facility] Address [address] [place] [address] Care Team Providers Care Prepleater Name Role Phone Lasha Agnelo MD Primary Care Provider [phone] Reason for Visit * Reason Comments Varicose Veins * Consult (Routine) - Closed Specialty Diagnoses / Procedures Referred By Nelia sanford Referred To Contact Vascular Surgery Diagnoses Varicose veins of right lower extremity with inflammation Lasha Angelo MD Phone: tel: fax: Vascular Surgery and Endovascular Therapy - [facility] [address] [place] [address] Phone: tel: fax: Referral ID Status Reason Start Date Expiration Date Visits Re quested Visits Authorized [id number] Closed 1 1 Encounter Details Date Type Department Care Team (Latest Contact Info) Description 09/04/2020 13:00 EST Initial consult [facility] Plastic, Reconstructive & Cosmetic Surgery - [address], [address] [place] [address] Anthony Farr MD Venous insufficiency of lower extremity, unspecified laterality (Primary Dx) Social History Tobacco [...] as of this encounter Progress Notes * Anthony Farr MD - 09/04/2020 1300 EST [facility] Vascular Surgery H & P Consultation Note - Initial Visit Note Date: 09/28/2020 Patient: Barrett Salvador Subjective: Barrett Salvador is a 74 y.o. male who presents today for No chief complaint on file. Consult requested by Lasha Angelo Patient History of Present Illness: The patient complains of varicose veins in the right leg. This patient presents with right leg bulging veins along with night cramps, itching, and burning. He denies a history of ulcer, DVT, or bleeding. He self treats the symptoms with oral cinnamon. Has never worn compression stockings. The patient's history, allergies, and medications were documented, reviewed, and updated. Medications: Current Outpatient Medications Medication ??? APPLE CIDER VINEGAR ORAL ??? aspirin 81 mg EC tablet ??? Multivitamins with Minerals Tab ??? oxyCODONE (ROXICODONE) 5 mg immediate release tablet ??? promethazine (PHENERGAN) 12.5 mg tablet No current facility-administered medications for this visit. History was documented as follows: H PSH Past Medical History: Diagnosis Date ??? Abnormal [...] ??? Tear of left supraspinatus tendon 11/04/2013 Past Surgical History: Procedure Laterality Date ??? SHOULDER SURGERY Social History Family History Social History Tobacco Use ??? Smoking status: Former Smoker Quit date: 01/03/1968 Years since quittin.7 ??? Smokeless tobacco: Never Used Substance Use Topics ??? Alcohol use: Yes Alcohol/week: 1.0 standard drinks Types: 1 Glasses of wine per week Comment: 1 glass nightly of Red wine Family History Problem Relation Age of Onset ??? Heart Attack Brother Allergies Allergies Allergen Reactions ??? Coconut Swelling of throat ??? Lipitor [Atorvastatin] Muscle Aches Muscle weakness Review of Systems A comprehensive review of systems was negative. Objective: Physical Examination: Vitals: There were no vitals taken for this visit. General Healthy-appearing 74 y.o. white male in no apparent distress who looks his stated age. Eyes: scelra non-icteric Musculoskeletal: No joint effusions or tenderness. Extremities: No bony abnormality. No joint effusions. Varicose veins palpable right leg Skin: Warm and pink. No lesions or stasis dermatitis. Hematologic: There is no bruising. Neurologic: Gait and stance are normal; Strength Upper and lower extremities, 5/5. There is no tremor or slurred speech. Vascular: warm, pink, capillary refill brisk, palp pedal pulses Non-invasive Vascular Lab Tests: Right GSV Reflux Assessment: Symptomatic right varicose veins and venous insufficiency. We discussed varicose veins and their pathophysiology. I explained that we cannot cure varicose veins and that they could recur later on in life, even if we treat those that are present today. I explained that invasive treatment of varicose veins was elective and that there was no risk to life or limb from varicose veins. I discussed the options for treatment, including compression, sclerotherapyand surgery. We discussed the risks and benefits of surgery, including the risks of anesthesia and the risk of bleeding or infection. We also discussed that surgery would produce scars and surgery would require time off from work. We discussed newer surgical techniques including radiofrequency ablat ion (???closure procedure?? ). We discussed injection sclerotherapy. We discussed the risks of allergic reactions, ulceration and discoloration. In particular we discussed the cosmetic risk of discoloration from injection of varicose veins, something that we have little control over, unfortunately.We discussed the need to wear compression dressings for up to a week after injection of larger veins and that more than one injection session might be necessary. I also explained that treatment of spider veins or varicose veins for cosmetic reasons only would not be covered by insurance. Plan: - compression stockings - f/u prn Submitted by: Anthony Farr MD CC: Lasha Angelo documented in this encounter Plan of Treatment Not on file documented as of this encounter Visit Diagnoses Diagnosis Venous insufficiency of lower extremity, unspecified laterality- Primary documented in this encounter Care Teams Prepleater Relationship Specialty Start Date End Date Lasha Angelo MD PCP - General Family Medicine - Primary Care 01/09/20 06/23/21 documented as of this encounter
--- OUTSIDE RECORDS SUMMARY | 2024-11-26 13:59 | XMS_ITS | Encounter Summary ---
Author Organization [facility] Address [address] [place] [address] Care Team Providers Care Outsole Scheduler Name Role Phone Darnell Taylor MD Primary Care Provider [phone] Encounter Details Date Type Department Care Team (Latest Contact Info) Description 01/17/2017 9:23 EDT - 01/17/2017 23:59 EDT Hospital Encounter [facility] Neurophysiology - [facility] ([facility]) [address] [place], [place] [id number] Krish Martinez MD Discharge Disposition: Auto Discharge Social History Tobacco Use Types Packs/Day Years [...] on file documented as of this encounter Discharge Diagnoses Diagnosis 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 Reported on 10/25/2016 Multivitamins with Minerals Tab Take 1 Tab by mouth daily. Reported on 10/25/2016 FERROUS FUMARATE (IRON ORAL) Take by mouth at bedtime. Reported on 10/25/2016 01/13/2020 HYDROmorphone (DILAUDID) 2 mg tablet Take 1-2 Tabs by mouth every 3 hours as needed for Pain Daily Max: 32 mg 30 Tab 0 08/27/2015 01/13/2020 pantoprazole (PROTONIX) 40 mg tablet Take 40 mg by mouth at bedtime. Reported on 10/25/2016 01/13/2020 documented as of this encounter Discharge Disposition Disposition Code Departure Means Destination Auto Discharge Home documented in this encounter Procedure Notes * Krish Martinez MD - 01/17/[address] [facility] NEUROPHYSIOLOGY ELECTRODIAGNOSTIC MEDICINE CONSULTATION - 01/17/2017 [place] [address] Dear Ms De La Torre: Thank you for your referral of Barrett Salvador a 71-year-old male seen in electrodiagnostic consultation on 01/17/2017. 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 He notes at night and sometimes when driving that he gets numbness involving all digits of his left somewhat more than right hand. He is not aware of any weakness. On clinical exam, he has no focal hypesthesia to crude touch, Tinel's is negative at the wrists bilaterally. He has excellent power in the intrinsic muscles of his hands. In the right arm, he has good proximal power as well. Nerve Conduction Testing: There was mild prolongation of the distal motor latency of the left median nerve with a normal amplitude and very modest slowing of conduction velocity in the forearm segment. The left ulnar motor conduction study was normal. The right median motor conduction study showed a low-normal motor amplitude and mild slowing in the forearm segment. The right ulnar motor conduction study was normal. The left median sensory conduction study showed mild prolongation of the transcarpal latency with adrop in the sensory amplitude with stimulation at the wrist compared to the palm. Both ulnar sensory conductions were normal. Right median antidromic sensory conduction study to the index fingers showed a high normal carpal latency. Comparison between the median and ulnar transcarpal mixed motor/sensory conductions across the wrist showed no significant difference in latency. Comparison between the median and superficial radial sensory responses to the thumb showed subtle prolongation of the radial sensory latency compared to the median. Needle examination of the right biceps, pronator teres and triceps revealed no abnormalities. Interpretation: Today's study shows slowing of the transcarpal median motor and sensory latencies on the left. In this clinical setting, these findings are strongly suggestive of carpal tunnel syndrome. Despite fairly similar symptoms on the right side, there was no convincing evidence, by nerve conduction testing, of a right median entrapment at this time. Brief needle exam for root dysfunction showed no abnormalities on the right Summary: Mild left median nerve lesion at the wrist, such as seen in carpal tunnel syndrome. Sincerely, Krish Martinez MD 01 01 PM - Krish Martinez MD ln Dictation ID: [id number] cc: Sury De La Torre PA-C, [address] [address] documented in this encounter Plan of Treatment Not on file documented as of this encounter Procedures Procedure Name Priority Date/Time Associated Diagnosis Comments ELECTROMYOGRAM - SCANNED 01/18/2017 14:23 EDT documented in this encounter Results * ELECTROMYOGRAM - SCANNED (01/18/2017 14:23 EDT) 01/18/2017 14:2 3 EDT us Scan 2 Stewardess Supervisor PROCEDURE/MINOR SURGICAL OR DERABLES Final Result documented in this encounter Visit Diagnoses Not on filedocumented in this encounter Care Teams Outsole Scheduler Relationship Specialty Start Date End Date Darnell Taylor MD [address] [place] [id number] PCP - General 03/02/12 07/29/19 documented as of this encounter
--- OUTSIDE RECORDS SUMMARY | 2024-11-26 13:59 | XMS_ITS | Encounter Summary ---
Author Organization [facility] Address [address] [place] [address] Care Team Providers Care Video Technician Name Role Phone Lasha Angelo MD Primary Care Provider [phone] Reason for Visit * Reason Onset Date Comments Other 01/14/2020 WORKERS COMP Encounter Details Date Type Department Care Team (Late st Contact Info) Description 01/14/2020 Telephone [facility] [address] [place] [address] Agusto Howell III, MD [address] [place] [address] Other (WORKERS COMP) Social History Tobacco Use Types Packs/Day Years [...] have Coronavirus / COVID-19? No / Unsure 01/09/2020 16:01 EDT documented as of this encounter Miscellaneous Notes * Telephone Encounter - Deven Cox - 01/17/2020 1146 EDT Completed faxed scanned * Telephone Encounter - Fanny Castaneda - 01/14/2020 1552 EDT Rec'd request for latest wk status / office note from 01-13-2020 for Rayo Placed in [facility] WC box documented in this encounter Plan of Treatment Not on file documented as of this encounter Visit Diagnoses Not on filedocumented in this encounter Care Teams Video Technician Relationship Specialty Start Date End Date Lasha Angelo MD PCP - General Family Medicine - Primary Care 01/09/20 06/23/21 documented as of this encounter
--- OUTSIDE RECORDS SUMMARY | 2024-11-26 13:59 | XMS_ITS | Encounter Summary ---
Author Hub Preferred Language EN Marital Status Spiritism Affiliation Unknown Race White Ethnic Group Not or Lati no Author Organization [facility] Address [address] [place] [address] Care Team Providers Care Mental Health Director Name Role Phone Darnell Taylor MD Primary Care Provider [phone] Reason for Visit * Reason Onset Date Comments Other 12/20/2019 Encounter Details Date Type Department Care Team (Late st Contact Info) Description 12/20/2019 Telephone [facility] Orthopedic Surgery - [facility] [address] [place] [address] Marie Wyman PA-C [address] [place] [address] Other Social History Tobacco Use Types Packs/Day Years [...] encounter Miscellaneous Notes * Telephone Encounter - Stephanie Cox - 12/26/2019 0743 EDT Completed faxed scanned * Telephone Encounter - Rea Hendrickson - 12/20/2019 1314 EST Received WC paperwork on 12/20/19 and gave to stephanie. Per Stephanie documented in this encounter Plan of Treatment Not on file documented as of this encounter Visit Diagnoses Not on filedocumented in this encounter Care Teams Mental Health Director Relationship Specialty Start Date End Date Darnell Taylor MD PCP - General 07/30/19 01/08/20 documented as of this encounter
--- OUTSIDE RECORDS SUMMARY | 2024-11-26 13:59 | XMS_ITS | Encounter Summary ---
Author Organization [facility] Address [address] [place] [address] Care Team Providers Care Performance Improvement Director Name Role Phone Darnell Taylor MD Primary Care Provider [phone] Reason for Visit * (Routine) - Receiving Office to Obtain Authorization Specialty Diagnoses / Procedures Referred By Nelia t Referred To Contact Procedures XR OUTSIDE IMAGES MSK Unknown, Provider, MD Referral ID Status Reason Start Date Expiration Date Visits Requested Visits Authorized [id number] Receiving Office to Obtain Authorization 09/16/2019 1 1 Encounter Details Date Type Department Care Team (Late st Contact Info) Description 09/16/2019 14:05 EST - 09/16/2019 23:59 EST Hospital Encounter [facility] Radiology - [facility] [place] [address] [place], [place] [id number] Social History Tobacco Use Types Packs/Day Years [...] on file documented as of this encounter Medications at Time of Discharge [...] 10/25/2016 01/13/2020 documented as of this encounter Plan of Treatment Not on file documented as of this encounter Procedures Procedure Name Priority Date/Time Associated Diagnosis Comments XR OUTSIDE IMAGES MSK Routine 09/16/2019 14:05 EST documented in this encounter Results * XR OUTSIDE IMAGES MSK (09/16/2019 14:05 EST) Narrative [facility] - 09/16/2019 14:05 EST This is a non-reportable exam. us Him Only No Signature Required IMG OTHER IMAGING ORDERABLES Final Result [facility] documented in this encounter Visit Diagnoses Not on filedocumented in this encounter Care Teams Performance Improvement Director Relationship Specialty Start Date End Date Darnell Taylor MD PCP - General 07/30/19 01/08/20 documented as of this encounter
--- OUTSIDE RECORDS SUMMARY | 2024-11-26 13:59 | XMS_ITS | Encounter Summary ---
Author Organization [facility] Address [address] [place] [address] Care Team Providers Care Operating Room Surgical Technologist Name Role Phone Lasha Angelo MD Primary Care Provider [phone] Reason for Visit * Reason Onset Date Comments Appointment Related 03/27/2020 Encounter Details Date Type Department Care Team (Late st Contact Info) Description 03/27/2020 Telephone Vascular Surgery and Endovascular Therapy - [facility] [address] [place] [address] Anthony Farr MD Appointment Related Social History Tobacco Use Types [...] encounter Miscellaneous Notes * Telephone Encounter - Angela Estrada - 03/27/2020 1120 EDT Called spoke to the patient, Dr. Farr will be away on Friday July 03, 2020 Patient was rescheduled to 07/17/2020 Thank you, Angela documented in this encounter Plan of Treatment Not on file documented as of this encounter Visit Diagnoses Not on filedocumented in this encounter Care Teams Operating Room Surgical Technologist Relationship Specialty Start Date End Date Lasha Angelo MD PCP - General Family Medicine - Primary Care 01/09/20 06/23/21 documented as of this encounter
--- OUTSIDE RECORDS SUMMARY | 2024-11-26 13:59 | XMS_ITS | Encounter Summary ---
Author Organization [facility] Address [address] [place] [address] Care Team Providers Care Mop Man Name Role Phone Darnell Taylor MD Primary Care Provider [phone] Encounter Details Date Type Department Care Team (Late st Contact Info) Description 06/01/2018 12:17 EDT - 06/01/2018 23:59 EDT Hospital Encounter [address] [address] [place] [address] [facility] [place], [place] [id number] Discharge Disposition: Auto Discharge Social History Tobacco [...] as of this encounter Discharge Diagnoses Diagnosis M50.321 Other cervical disc degeneration at C4-C5 level-M50.321[ICD-10-CM] M50.322 Other cervical disc degeneration at C5-C6 level-M50.322[ICD-10-CM] M50.323 Other cervical disc degeneration at C6-C7 level-M50.323[ICD-10-CM] documented in this encounter Medications at Time [...] Auto Discharge Home documented in this encounter Plan of Treatment Not on file documented as of this encounter Procedures Procedure Name Priority Date/Time Associated Diagnosis Comments CERVICAL SPINE 4 OR MORE VIEWS 06/01/2018 12:56 EDT documented in this encounter Results * CERVICAL SPINE 4 OR MORE VIEWS (06/01/2018 12:56 EDT) Anatomical Region Laterality Modality Other 06/01/2018 12:5 6 EDT 06/01/2018 16:36 EDT Narrative 06/01/2018 16:36 EDT CERVICAL SPINE 4 OR MORE VIEWS ??06/01/2018 12:56 PM Signs and Symptoms/Comments: ?? Intractable neck about 1 week. Findings: 7 views of the cervical spine were obtained. Multilevel degenerative disc space narrowing is evident, most severe from C4 through C7. There is grade 1 retrolisthesis of C4 on C5 which reduces in flexion and increases in extension. The prevertebral soft tissues are normal in appearance. No fracture is identified. The visualized portion of the lung apices is clear. IMPRESSION: Degenerative disc disease from C3-4 through C7, with grade 1 retrolisthesis of C4 on C5 which corrects in flexion and minimally increases in extension consistent with dynamic instability. Procedure Note Krish Choudhary MD - 06/01/2018 CERVICAL SPINE 4 OR MORE VIEWS 06/01/2018 12:56 PM Signs and Symptoms/Comments: Intractable neck about 1 week. Findings: 7 views of the cervical spine were obtained. Multilevel degenerative disc space narrowing is evident, most severe from C4 through C7. There is grade 1 retrolisthesis of C4 on C5 which reduces in flexion and increases in extension. The prevertebral soft tissues are normal in appearance. No fracture is identified. The visualized portion of the lung apices is clear. IMPRESSION: Degenerative disc disease from C3-4 through C7, with grade 1 retrolisthesis of C4 on C5 which corrects in flexion and minimally increases in extension consistent with dynamic instability. [place] [facility] IM DIAGNOSTIC IMAGING YAA MCCORD Final Result documented in this encounter Visit Diagnoses Not on filedocumented in this encounter Care Teams Mop Man Relationship Specialty Start Date End Date Darnell Taylor MD [address] [place] [id number] PCP - General 03/02/12 07/29/19 documented as of this encounter
--- OUTSIDE RECORDS SUMMARY | 2024-11-26 13:59 | XMS_ITS | Encounter Summary ---
Author Organization [facility] Address [address] [place] [id number] Care Team Providers Care Dinkey Press Operator Name Role Phone Darnell Taylor MD Primary Care Provider [phone] Reason for Referral * Radiology Services (Routine) - New Request Specialty Diagnoses / Procedures Referred By Nelia sanford Referred To Contact Diagnoses Arthritis of left glenohumeral joint Procedures FL GUIDED LOCALIZATION, ASPIRATION, INJECTION, BIOPSY Marie Wyman PA-C Phone: tel: fax: Referral ID Status Reason Start Date Expiration Date V isits Requested Visits Authorized [id number] New Request 10/30/2019 1 1 Reason for Visit * Radiology Services (Routine) - New Request Specialty Diagnoses / Procedures Referred By Nelia sanford Referred To Contact Diagnoses Arthritis of left glenohumeral joint Procedures FL GUIDED LOCALIZATION, ASPIRATION, INJECTION, BIOPSY Marie Wyman PA-C Phone: tel: fax: Referral ID Status Reason Start Date Expiration Date V isits Requested Visits Authorized [id number] New Request 10/30/2019 1 1 Encounter Details Date Type Department Care Team (Latest Contact Info) Description 11/27/2019 12:35 EST - 11/27/2019 23:59 EST Hospital Encounter [facility] Radiology Fluoroscopy - [facility] [address] [place] [address] Arthritis of left glenohumeral joint Discharge Disposition: Home or Self Care Social [...] Tab by mouth daily. Reported on 10/25/2016 DIAZepam (VALIUM) 5 mg tablet Take 1 Tab by mouth once for 1 dose. Repeat PRN Daily Max: 10 mg 2 Tab 09/18/2019 01/13/2020 FERROUS FUMARATE (IRON ORAL) Take by mouth [...] Departure Means Destination Home or Self Care documented in this encounter Plan of Treatment Not on file documented as of this encounter Procedures Procedure Name Priority Date/Time Associated Diagnosis Comments FL GUIDED LOCALIZATION, ASPIRATION, INJECTION, BIOPSY Routine 11/27/2019 13:27 EST Arthritis of left glenohumeral joint documented in this encounter Results * FL GUIDED INJECT/ASPIR LEFT SHOUL (11/27/2019 13:27 EST) Anatomical Region Laterality Modality Radio Fluoroscop y 12/10/2019 14:2 7 EST Impressions 12/10/2019 14:27 EST 1. Successful intra-articular injection of Kenalog and ropivacaine on the left shoulder under fluoroscopic guidance and without complications Dr. Olson was present during the injection for the intra-articular administration of the steroid and ropivacaine. Narrative 12/10/2019 14:27 EST EXAM/TECHNIQUE: FL GUIDED INJECT/ASPIR LEFT SHOUL ??11/27/2019 12:56 PM HISTORY: ?? Left GH OA COMPARISON: Left shoulder radiographs dated September 18, 2019. PROCEDURE: Left shoulder steroid and anesthetic injection under fluoroscopic guidance. TECHNIQUE: The patient was met in the fluoroscopic suite where after proper identification; the risks, benefits, and alternatives to the procedure were explained in detail to the patient who gave informed oral and written consent to proceed. The patient was subsequently placed in supine position. A limited examination was performed and the appropriate site of entry on the left shoulder marked. The shoulder was prepped and draped in the usual sterile fashion. A 1% lidocaine solution was infiltrated at the access site. Subsequently, under fluoroscopic guidance, using strict sterile technique, a 22- gauge spinal needle was advanced into the left glenohumeral joint, and fluoroscopic confirmation was obtained by injecting approximately 2 cc of Omnipaque 300 within the joint space. Following this, 1 mL of 40 mg/mL of Kenalog suspension was injected into the joint, followed by approx. 5 mL of ropivacaine. The needle was removed. Fluoro spot views were saved during the procedure. The patient tolerated the procedure well. There were no immediate complications. Procedure Note Dhiraj Olson MD - 12/10/2019 EXAM/TECHNIQUE: FL GUIDED INJECT/ASPIR LEFT SHOUL 11/27/2019 12:56 PM HISTORY: Left GH OA COMPARISON: Left shoulder radiographs dated September 18, 2019. PROCEDURE: Left shoulder steroid and anesthetic injection under fluoroscopicguidance. TECHNIQUE: The patient was met in the fluoroscopic suite where after properidentification; the risks, benefits, and alternatives to the procedurewere explained in detail to the patient who gave informed oral and writtenconsent to proceed. The patient was subsequently placed in supine position. A limitedexamination was performed and the appropriate site of entry on the leftshoulder marked. The shoulder was prepped and draped in the usual sterilefashion. A 1% lidocaine solution was infiltrated at the access site. Subsequently, under fluoroscopic guidance, using strict sterile technique,a 22- gauge spinal needle was advanced into the left glenohumeral joint,and fluoroscopic confirmation was obtained by injecting approximately 2 ccof Omnipaque 300 within the joint space. Following this, 1 mL of 40 mg/mLof Kenalog suspension was injected into the joint, followed by approx. 5mL of ropivacaine. The needle was removed. Fluoro spot views were saved during the procedure. The patient tolerated the procedure well. There were no immediatecomplications. IMPRESSION 1. Successful intra-articular injection of Kenalog and ropivacaine on theleft shoulder under fluoroscopic guidance and without complications Dr. Olson was present during the injection for the intra-articularadministration of the steroid and ropivacaine. Marie Wyman PA-C IMMonica FLUOROSCOPY ORDERABLE S Final Result documented in this encounter Visit Diagnoses Diagnosis Arthritis of left glenohumeral joint documented in this encounter Administered Medications Inactive Administered Medications - up to 3 most recent administrations Medication Order MAR Action Action Date Dose Rate Site iohexoL (OMNIPAQUE 300) injection 50 mL 50 mL, intra-articular, Once in imaging, 1 dose, Starting on Mon11/27/19 at 1257, Until 11/27/19 at 1320, Routine, Imaging Protocol Orders Given 11/27/2019 13:20 EST 2 mL ropivacaine (PF) (NAROPIN) 5 mg/mL (0.5 %) injection 5 mL 5 mL, other, Once in imaging, 1 dose, Starting on Mon11/27/19 at 1257, Until Mon11/27/19 at 1320, Routine, Imaging Protocol Orders Given 11/27/2019 13:20 EST 4 mL triamcinolone acetonide (KENALOG-40) injection 40 mg 40 mg, intra-articular, NOW X1, 1 dose, On Mon11/27/19 at 1315, Routine, Imaging Protocol Orders Given 11/27/2019 13:20 EST 40 mg documented in this encounter Care Teams Dinkey Press Operator Relationship Specialty Start Date End Date Darnell Taylor MD PCP - General 07/30/19 01/08/20 documented as of this encounter
--- OUTSIDE RECORDS SUMMARY | 2024-11-26 13:59 | XMS_ITS | Encounter Summary ---
Author Organization [facility] Address [address] [place] [address] Care Team Providers Care Business Systems Analyst Name Role Phone Darnell Taylor MD Primary Care Provider [phone] Encounter Details Date Type Department Care Team (Latest Contact Info) Description 05/13/2014 12:40 EDT - 05/13/2014 12:42 EDT Hospital Encounter [facility] [address] [place] [address] Darnell Taylor MD [address] [place] [id number] Discharge Disposition: Home or Self Care Social History Tobacco Use Types Packs/Day Years Used Date Smoking Tobacco: Former Cigarettes Q uit: 01/03/1968 Smokeless Tobacco: Never Alcohol Use Standard Drinks/Week Comments Yes 7 (1 standard drink = 0.6 oz pur e alcohol) 1 glass nightly of Red wine Sex and Gender Information Value Date Recorded Sex Assigned at Male 03/18/2022 9:53 EDT Legal Sex Male 18:08 EST Gender Identity Male 09/16/2019 15:02 EST Sexual Orientation Not on file documented as of this encounter Discharge Diagnoses Diagnosis 285.9 ANEMIA NOS[ICD-9-CM] documented in this encounter Medications at Time of Discharge aspirin 81 mg EC tablet Take 81 mg by mouth at bedtime. Reported on 10/25/2016 Multivitamins with Minerals Tab Take 1 Tab by mouth daily. Reported on 10/25/2016 FERROUS FUMARATE (IRON ORAL) Take by mouth at bedtime. Reported on 10/25/2016 01/13/2020 HYDROmorphone (DILAUDID) 2 mg tablet Take 1-2 Tabs by mouth every 3 hours. Earliest Fill Date: 01/02/14 60 Tab 0 01/02/2014 08/17/2015 hydrOXYzine (ATARAX) 10 mg tablet Take 1 Tab by mouth 3 times daily as needed for Itching. 20 Tab 0 01/02/2014 08/17/2015 lisinopril-hydro chlorothiazide (PRINZIDE, ZESTORETIC) 20-12.5 mg per tablet Take 1 Tab by mouth daily. 08/17/2015 pantoprazole (PROTONIX) 40 mg tablet Take 40 mg by mouth at bedtime. Reported on 10/25/2016 01/13/2020 documented as of this encounter Discharge Disposition Disposition Code Departure Means Destination Home or Self Care documented in this encounter Plan of Treatment Not on file documented as of this encounter Visit Diagnoses Not on filedocumented in this encounter Care Teams Business Systems Analyst Relationship Specialty Start Date End Date Darnell Taylor MD [address] [place] [phone] PCP - General 03/02/12 07/29/19 documented as of this encounter
--- OUTSIDE RECORDS SUMMARY | 2024-11-26 13:59 | XMS_ITS | Encounter Summary ---
Author Organization [facility] Address [address] [place] [address] Care Team Providers Care Acquisition Manager Name Role Phone Darnell Taylor MD Primary Care Provider [phone] Reason for Visit * (Routine) - Receiving Office to Obtain Authorization Specialty Diagnoses / Procedures Referred By Nelia sanford Referred To Contact Procedures MR OUTSIDE IMAGES MSK Unknown, Provider, MD Referral ID Status Reason Start Date Expiration Date Visits Requested Visits Authorized [id number] Receiving Office to Obtain Authorization 10/23/2019 1 1 Encounter Details Date Type Department Care Team (Latest Contact Info) Description 10/09/2019 - 10/09/2019 23:59 EST Hospital Encounter [facility] Radiology - [facility] [place] [address] [place], [place] [id number] Discharge Disposition: Home or Self Care Social [...] Procedure Name Priority Date/Time Associated Diagnosis Comments MR OUTSIDE IMAGES MSK Routine 10/23/2019 12:25 EST documented in this encounter Results * MR OUTSIDE IMAGES MSK (10/23/2019 12:25 EST) Narrative CATRACHITA - 10/23/2019 12:25 EST This is a non-reportable exam. us Provider Unknown MD SMALL OTHER IMAGING ORDERABLES Final Result CATRACHITA documented in this encounter Visit Diagnoses Not on filedocumented in this encounter Care Teams Acquisition Manager Relationship Specialty Start Date End Date Darnell Taylor MD PCP - General 07/30/19 01/08/20 documented as of this encounter
--- OUTSIDE RECORDS SUMMARY | 2024-11-26 13:59 | XMS_ITS | Encounter Summary ---
Author Organization [facility] Address [address] [place] [address] Care Team Providers Care Batch Mixer Name Role Phone Lasha Angelo MD Primary Care Provider Reason for Visit * Reason Comments Shoulder Pain left Pain Encounter Details Date Type Department Care Team (Latest Contact Info) Description 02/27/2020 10:30 EDT Office Visit [facility] Orthopedic Surgery - [facility] [address] [place] [address] Agusto Howell III, MD [address] [place] [address] Tear of left supraspinatus tendon (Primary Dx); Infraspinatus tendon tear, left, subsequent encounter; Partial tear of subscapularis tendon, left, subsequent encounter; Osteoarthritis of left glenohumeral joint; Secondary adhesive capsulitis of left shoulder; Chronic left shoulder pain Social History Tobacco Use Types Packs/Day Years [...] Pressure - - Pulse - - Temperature 36.6 ??C (97.9 ??F) 02/27/2020 1020 EDT Respiratory Rate - - Oxygen Saturation - - Inhaled Oxygen Concentration - - Weight 74.4 kg (164 lb) 02/27/2020 1020 EDT per pt Height 172.7 cm (5' 7.99) 02/27/2020 1020 EDT p er pt Body Mass Index 24.94 02/27/2020 1020 EDT documented in this encounter Progress Notes * Agusto Howell III, MD - 02/27/2020 1030 EDT This is a 74-year-old ambidextrous male who is now roughly 6 years status post left shoulder arthroscopic supraspinatus repair, decompression and distal clavicle excision. He had a chronic long head of the biceps injury. He had a more recent injury to the same shoulder while at work in August 2019 and an MRI study done this past October is described below. He elected nonoperative management andon November 27, 2019 he had an image guided left glenohumeral injection of local anesthetic and corticosteroid which offered him about 2 weeks of relief. I spoke with him about this about 6 weeks [facility] telemedicine at that time he was exercising independently with his skilled physical therapy having been put on hold by the coronavirus pandemic. He was hoping to restart skilled PT when those restrictions were lifted. He reports that his condition is actually worsening with increasing pain about his anterosuperior and superolateral shoulder and decreasing function. His pain radiates into his biceps on occasion. Velia has some pain from his neck down to his hand as well along with some vague numbness and tingling but his biggest problem is with shoulder focal pain and disability. He describes his pain as a burning pain with sharp components of moderate to severe severity. Is constantly bothering him and impacts his ability to sleep as well. He cannot find any modifying factors that seem to help. Holding his arm up away from his body causes him the most discomfort particularly tries to lift anything of any weight. He does note some popping snapping and noises in his left shoulder but does not feel as if the ballis coming out of his socket. Denies redness erythema about his prior incisions and denies any swelling down his arm. He definitely feels weak. Does not think the physical therapy exercises were helping and as he is deteriorating he is not thinking that going back to PT will make much difference. He comes in today believing that surgical intervention will be required. I have reviewed the past medical history, past family history, social history outlined in this chart and reviewed the review of systems which has been gathered and placed in this record by the Thermal Spray Operator. REVIEW OF SYSTEMS: Yes No Yes No [...] This patient has a regular pulse. The cervical spine has normal alignment, it is not tender to palpation and has supple range of motion without pain. There is a mildly positive cervical compression test to the affected side but this does not precisely reproduce his shoulder symptoms. It does seem to impact some of the numbness in his hand though. There is no significant increased tenderness to palpation of the scalenus anticus muscle on the affected side. The skin about the affected shoulder is clean, dry and not inflamed. There is no deformity, induration, soft tissue defect or abnormal mass detected. There is no visual or palpable muscle atrophy. The skin has normal color, temperature and hydration. His prior incisions are well-healed. There is no focal point tenderness to palpation over the clavicle, acromioclavicular joint, anterior acromion, lesser tuberosity, bicipital groove, or greater tuberosity unless stated below: There is no point tenderness The right shoulder has 180 degrees of forward elevation, 180 degrees of active abduction in the scapular plane, 40 degrees of external rotation at 0?? abduction and internal rotation to 0. At 90 degrees of abduction he has external rotation to 90 degrees. The left shoulder has 60 degrees of forward elevation, 60 degrees of active abduction in the scapular plane, 10 degrees of external rotation at 0?? abduction and internal rotation to left buttock. At90 degrees of abduction he has external rotation to 60 degrees. With the scapula stabilized pure glenohumeral motion can be passively measured: The RIGHT shoulder has 90 degrees of forward elevation, 90 degrees of abduction in scapular plane and 30 degrees of external rotation at 0?? of abduction, at 90 degrees of abduction there is 30 degrees of internal rotation. The LEFT shoulder has 90 degrees of forward elevation, 90 degrees of abduction in scapular plane and 0 degrees of external rotation at 0?? of abduction, at 90 degrees of abduction there is 0 degrees of internal rotation. In the affected shoulder there is a + Hawkin impingement test, + Neer impingement test, - Kimble active compression test, - external rotation lag test, + + belly press test, + + bear Hug test, - Yergason's test, + speed's test, + cross body abduction impingement sign, - internal impingement test. The affected shoulder has 3 with pain/5 strength with contraction of the supraspinatus, 4- with discomfort/5 strength with contraction of the infraspinatus, 4- with discomfort/5 strength with contraction of the subscapularis, 4/5 strength with contraction of the biceps, 4/5 strength with contraction of the deltoid, 4/5 strength with contraction of the serratus anterior. The contralateral shoulder has 5/5 strength with contraction of the supraspinatus, 5/5 strength with contraction of the infraspinatus, 5/5 strength with contraction of the subscapularis, 5/5 strengthwith contraction of the biceps, 5/5 strength with contraction of the deltoid, 5/5 strength with cont raction of the serratus anterior. There are negative anterior and posterior drawer tests. There is a negative Susy test. There is no apprehension or laxity to load and shift testing anteriorly, inferiorly or posteriorly at 0?? and at 90?? of abduction in scapular plane. The ipsilateral elbow wrist and fingers have a supple, full and painless range of motion. There is an intact radial pulse. The fingers are pink and warm with good capillary refill. There is no swelling in this extremity. I have independently visualized his plain x-rays of his left shoulder from 09/18/2019. This shows some mild glenohumeral arthrosis without superior migration of the humeral head. There is some reactive radiolucencies and sclerosis in the greater tuberosity likely due to chronic rotator cuff tendinosi s. No obvious fracture is seen. There is no evidence for avascular necrosis. There is evidence of aprior distal clavicle resection with a few small bony ossicles in the joint space. The acromion hasbeen converted to a type I. The humeral head is well centered on the axillary lateral views as welland there is no os acromiale. There is sclerosis from prior suture anchor placement noted. ?? I have also independently visualized his left shoulder MRI taken at the hospital on 10/08/2019. There is attenuation of the supraspinatus tendon, partial disruption of his prior repair is likely although there is no significant retraction noted. His glenohumeral arthrosis appears worse on the MRI than it does on the plain films. On the axial views the teres minor and infraspinatus appear to be intact perhaps with some slight partial tearing of the superior fibers of the infraspinatus. The subscapularis appears to have a partial- thickness articular sided tear without retraction. There appears to be diffuse stage I atrophy of the superior subscapularis and supraspinatus with stage II atrophy of the infraspinatus. The teres minor has no obvious atrophy to my view. There is no bony impingement noted of the rotator cuff on the sagittal oblique views. The biceps long head is absent from the [id number]. Assessment: Encounter Diagnoses Name Primary? Tear of left supraspinatus tendon Yes ??? Infraspinatus tendon tear, left, subsequent encounter ??? Partial tear of subscapularis tendon, left, subsequent encounter ??? Osteoarthritis of left glenohumeral joint ??? Secondary adhesive capsulitis of left shoulder ??? Chronic left shoulder pain Based on his physical findings it seems likely that most of his pain is coming from his rotator cuff insufficiency rather than his glenohumeral arthrosis or his likely cervical spondylosis. Plan: I spent 30 minutes of face to face time with this patient 20 minutes of which was spent counciling: We discussed the anatomy of the shoulder, the pathoanatomy of the above findings. We discussed thatthe precise source of shoulder pain can be difficult to determine which often could relate to referred pain from the neck area versus from the acromioclavicular joint versus the subacromial space versus rotator cuff musculotendinous units versus the long head of the biceps versus the labrum versus the glenohumeral joint as well as the biomechanics of the scapula relative to the glenohumeral jointand the muscle units involved in maintaining that relationship. On occasion neurologic issues are involved. Distinguishing between these various contributors is difficult. We discussed diagnostic options including serial examinations over time, activity modification, exercise programs, local anesthetic and corticosteroid injections for diagnostic and potentially therapeutic purposes, operative and nonoperative treatment options. We discussed benefits, risks and complications of all of the options. We discussed perioperative and postoperative management of the surgical options along with time frame of immobilization and anticipated return to activity schedules. Shoulder arthroscopy risks: We discussed perioperative and postoperative management including timeframes of immobilization and timeframes of increasing activity. A discussion was had regarding the potential risks and complications as well as benefits of both operative and nonoperative management. The surgical risks include but are not limited to: Failure of the repair to heal, Infection, bleeding, nerve injury, heart attack, allergic reactions, damage to nearby organs, need for reoperation and pneumonia. The patient understands that some significant addedrisks of the procedure may include: deep vein thrombosis, pulmonary embolus and . The patient understands that stiffness is a major concern after shoulder surgery. This stiffness can result in increased pain which can be even worse than the preoperative pain. The patient understands that solutions for this postoperative stiffness are very difficult to achieve and possibly could result in further surgery or even permanent painful stiffness. All of the patient's questions were answered. At this point he would like to proceed with surgical invention for his left shoulder in the form ofarthroscopic capsular release and revision rotator cuff repair, likely with dermal allograft supplementation. A surgical scheduling sheet was filled out. Informed consent and opioid consent obtained. Follow-uphas been arranged. He does understand the surgery is not likely to improve symptoms coming from glenohumeral arthrosisor cervical spondylosis. A work restriction note was written. This note was prepared with the aid of voice recognition technology. The attempts at proofreading sometimes miss mistakes. All attempts are made to reproduce pertinent clinical information but sometimes grammatical mistakes and inappropriate word spelling occurs. documented in this encounter Plan of Treatment Not on file documented as of this encounter Visit Diagnoses Diagnosis Tear of left supraspinatus tendon- Primary Infraspinatus tendon tear, left, subsequent encounter Partial tear of subscapularis tendon, left, subsequent encounter Osteoarthritis of left glenohumeral joint Secondary adhesive capsulitis of left shoulder Chronic left shoulder pain Pain in joint, shoulder region documented in this encounter Care Teams Batch Mixer Relationship Specialty Start Date End Date Lasha Angelo MD PCP - General Family Medicine - Primary Care 01/09/20 06/23/21 documented as of this encounter
--- OUTSIDE RECORDS SUMMARY | 2024-11-26 13:59 | XMS_ITS | Encounter Summary ---
Author Organization [facility] Address [address] [place] [address] Care Team Providers Care Guard Manager Name Role Phone Darnell Taylor MD Primary Care Provider [phone] Encounter Details Date Type Department Care Team (Late st Contact Info) Description 10/30/2019 Orders Only [facility] Radiology - Main Geraldine [address] [place] [address] Gabi Garg MD [address] [place] [address] Social History Tobacco Use Types Packs/Day Years [...] on filedocumented in this encounter Care Teams Guard Manager Relationship Specialty Start Date End Date Darnell Taylor MD PCP - General 07/30/19 01/08/20 documented as of this encounter
--- OUTSIDE RECORDS SUMMARY | 2024-11-26 13:59 | XMS_ITS | Encounter Summary ---
Author Organization [facility] Address [address] [place] [address] Care Team Providers Care Supervisor Screen Printing Name Role Phone Darnell Taylor MD Primary Care Provider [phone] Encounter Details Date Type Department Care Team ([facility] st Contact Info) Description 11/17/2014 Results Only [facility] Laboratory Services - [facility] ([facility]) [address] [place], [place] [address] Darnell Taylor MD [address] [place], [place] [id number] Social History Tobacco Use Types Packs/Day Years [...] Procedure Name Priority Date/Time Associated Diagnosis Comments COMPLETE BLOOD COUNT AND DIFFERENTIAL Routine 11/17/2014 11:07 EST MAGNESIUM Routine 11/17/2014 11:07 EST IRON Routine 11/17/2014 11:07 EST CREATININE Routine 11/17/2014 11:07 EST ELECTROLYTES Routine 11/17/2014 11:07 EST documented in this encounter Results * MAGNESIUM (11/17/2014 11:07 EST) Magnesium 1.9 1.7 - 2.8 mg/dl 11/17/2014 20:11 EST [facility] BLOOD SPECIMEN / Unknown 11/17/2014 11:07 EST 11/17/2014 19:07 EST Darnell Taylor MD CHEMISTRY & BLOOD GAS ORDERABLE S Final Result Performing Organization Address City/[facility] Co de Phone Number [facility] [address] [place] [address] * ELECTROLYTES (11/17/2014 11:07 EST) Sodium 138 136 - 145 mEq/L 11/17/2014 20:11 [facility] Potassium 4.1 3.5 - 5.0 mEq/L 11/17/2014 20:11 [facility] Chloride 99 96 - 110 mEq/L 11/17/2014 20:11 [facility] CO2 30 24 - 32 mEq/L 11/17/2014 20:11 [facility] BLOOD SPECIMEN / Unknown 11/17/2014 11:07 EST 11/17/2014 19:07 EST Darnell Taylor MD CHEMISTRY & BLOOD GAS ORDERABLE S Final Result Performing Organization Address City/[facility]/ZIP Co de Phone Number [facility] [address] [place] [address] * IRON (11/17/2014 11:07 EST) Iron 63 49 - 181 ug/dl 11/17/2014 20:11 EST [facility] BLOOD SPECIMEN / Unknown 11/17/2014 11:07 EST 11/17/2014 19:07 EST Darnell Taylor MD CHEMISTRY & BLOOD GAS ORDERABLE S Final Result Performing Organization Address City/[facility]/ZIP Co de Phone Number [facility] [address] [place] [address] * CREATININE (11/17/2014 11:07 EST) Creatinine 0.96 0.66 - 1.25 mg/dl 11/17/2014 20:11 [facility] GFR, Calculated >60 >60 ml/min/1.7 3m2 11/17/2014 20:11 [facility] BLOOD SPECIMEN / Unknown 11/17/2014 11:07 EST 11/17/2014 19:07 EST Darnell Taylor MD CHEMISTRY & BLOOD GAS ORDERABLE S Final Result Performing Organization Address [facility] Co de Phone Number [facility] [address] [place] [address] * (ABNORMAL) HEMAGRAM AND DIFFERENTIAL (11/17/2014 11:07 EST) WBC 5.07 4.0 - 10.4 K/cmm 11/17/2014 19:58 [facility] RBC 4.61 4.36 - 5.78 M/cmm 11/17/2014 19:58 [facility] Hemoglobin 14.8 13.8 - 17.3 gm/dl 11/17/2014 19:58 [facility] HCT 42.9 39.5 - 50.2 % 11/17/2014 19:58 [facility] MCV 93 81 - 95 fl 11/17/2014 19:58 [facility] MCH 32.2 27.6 - 33.0 pg 11/17/2014 19:58 [facility] MCHC 34.6 32.8 - 36.4 gm/dl 11/17/2014 19:58 [facility] RDW-CV 13.1 11.8 - 14.1 % 11/17/2014 19:58 [facility] RDW-SD 42.4 36.5 - 45.9 fl 11/17/2014 19:58 [facility] PLT 208 141 - 320 K/cmm 11/17/2014 19:58 [facility] MPV 7.6 7.5 - 11.2 fl 11/17/2014 19:58 [facility] % Neutrophils 77.0 45.5 - 79.7 % 11/17/2014 19:58 [facility] % Lymphocytes 16.4 15.0 - 46.8 % 11/17/2014 19:58 [facility] % Monocytes 4.6 1.8 - 12.0 % 11/17/2014 19:58 [facility] % Eosinophils 1.3 0.6 - 6.9 % 11/17/2014 19:58 [facility] % Basophils 0.7 0.2 - 1.4 % 11/17/2014 19:58 [facility] ABS Neutrophils 3.90 2.20 - 8.85 K/cmm 11/17/2014 19:58 [facility] ABS Lymphs 0.83(L) 1.09 - 3.30 K/cmm 11/17/2014 19:58 [facility] ABS Monocytes 0.23 0.1 - 0.8 K/cmm 11/17/2014 19:58 [facility] ABS Eosinophils 0.07 0.03 - 0.61 K/cmm 11/17/2014 19:58 [facility] ABS Basophils 0.04 0.01 - 0.11 K/cmm 11/17/2014 19:58 [facility] Type of Diff: Automated 11/17/2014 19:58 [facility] BLOOD SPECIMEN / Unknown 11/17/2014 11:07 EST 11/17/2014 19:07 EST us Darnell Taylor MD PACKAGES & DNA PROBE ORDERABLES Final Result [facility] [address] [place] [address] documented in this encounter Visit Diagnoses Not on filedocumented in this encounter Care Teams Supervisor Screen Printing Relationship Specialty Start Date End Date Darnell Taylor MD [address] [place] [address] PCP - General 03/02/12 07/29/19 documented as of this encounter
--- OUTSIDE RECORDS SUMMARY | 2024-11-26 13:59 | XMS_ITS | Encounter Summary ---
Author Organization [facility] Address [address] [place] [address] Care Team Providers Care Credit Analyst Name Role Phone Darnell Taylor MD Primary Care Provider [phone] Encounter Details Date Type Department Care Team (Latest Contact Info) Description 12/09/2018 Travel Social History Tobacco Use Types Packs/Day [...] on filedocumented in this encounter Care Teams Credit Analyst Relationship Specialty Start Date End Date Darnell Taylor MD [address] [place] [address] PCP - General 03/02/12 07/29/19 documented as of this encounter
--- OUTSIDE RECORDS SUMMARY | 2024-11-26 13:59 | XMS_ITS | Encounter Summary ---
Author Organization [facility] Address [address] [place] [address] Care Team Providers Care Body Die Maker Name Role Phone Lasha Angelo MD Primary Care Provider [phone] Encounter Details Date Type Department Care Team (Latest Contact Info) Description 01/09/2020 Travel Social History Tobacco Use Types Packs/Day [...] 16:01 EDT documented as of this encounter Plan of Treatment Not on file documented as of this encounter Visit Diagnoses Not on filedocumented in this encounter Care Teams Body Die Maker Relationship Specialty Start Date End Date Lasha Angelo MD PCP - General Family Medicine - Primary Care 01/09/20 06/23/21 documented as of this encounter
--- OUTSIDE RECORDS SUMMARY | 2024-11-26 13:59 | XMS_ITS | Encounter Summary ---
Author Organization [facility] Address [address] [place] [address] Care Team Providers Care Shop Foreman Name Role Phone Lasha nAgelo MD Primary Care Provider [phone] Encounter Details Date Type Department Care Team (Latest Contact Info) Description 04/15/2020 Transcribe Orders [facility] [address] [place] [address] Sun Bess, SEAN [address] [place] [address] Encntr for obs for susp expsr to oth biolg agents ruled out (Primary Dx) Social History Tobacco Use Types [...] as of this encounter Visit Diagnoses Diagnosis Encntr for obs for susp expsr to oth biolg agents ruled out- Primary documented in this encounter Additional Health Concerns Infection Onset Date Last Indicated Resolved Time R/O COVID-19 04/15/2020 04/15/2020 04/20/2020 22:1 6 EDT documented as of this encounter Care Teams Shop Foreman Relationship Specialty Start Date End Date Lasha Angelo MD PCP - General Family Medicine - Primary Care 01/09/20 06/23/21 documented as of this encounter
--- OUTSIDE RECORDS SUMMARY | 2024-11-26 13:59 | XMS_ITS | Encounter Summary ---
Author Organization [facility] Address [address] [place] [address] Care Team Providers Care Business Sales Consultant Name Role Phone Darnell Taylor MD Primary Care Provider [phone] Encounter Details Date Type Department Care Team ([facility] Contact Info) Description 10/19/2016 Abstract [facility] Orthopedic Surgery - [address] [place] [address] All Rodriguez MD [address] [place] [address] Social History Tobacco Use Types [...] filedocumented in this encounter Care Teams Business Sales Consultant Relationship Specialty Start Date End Date Darnell Taylor MD [address] [place] [address] PCP - General 03/02/12 07/29/19 documented as of this encounter
--- OUTSIDE RECORDS SUMMARY | 2024-11-26 13:59 | XMS_ITS | Encounter Summary ---
Author Organization [facility] Address [address] [place] [address] Care Team Providers Care Mechanic Senior Name Role Phone Lasha Angelo MD Primary Care Provider [phone] Sangita Nolasco MD Primary Care Provider [phone] Encounter Details Date Type Department Care Team (Latest Contact Info) Description 04/14/2020 Lab Requisition [facility] Pathology & Laboratory Medicine - [facility] [address] [place] [address] Sun Bess, SEAN [address] [place] [address] Pain in left shoulder; Encounter for other preprocedural examination Social History Tobacco Use Types Packs/Day Years [...] Procedure Name Priority Date/Time Associated Diagnosis Comments PROTIME Today 04/14/2020 11:06 EDT Pain in left shoulder [ICD-10-CM] Encounter for other preprocedural examination [ICD-10-CM] COMPLETE BLOOD COUNT AND DIFFERENTIAL Today 04/14/2020 11:06 EDT Pain in left shoulder [ICD-10-CM] Encounter for other preprocedural examination [ICD-10-CM] BASIC METABOLIC PANEL (BMP) Today 04/14/2020 11:06 EDT Pain in left shoulder [ICD-10-CM] Encounter for other preprocedural examination [ICD-10-CM] documented in this encounter Results * (ABNORMAL) COMPLETE BLOOD COUNT AND DIFFERENTIAL (04/14/2020 11:06 EDT) WBC 3.82(L) 4.00 - 10.40 K/cmm 04/14/2020 20:43 [facility] RBC 4.79 4.36 - 5.78 M/cmm 04/14/2020 20:43 [facility] Hemoglobin 14.8 13.8 - 17.3 gm/dL 04/14/2020 20:43 [facility] HCT 44.4 39.5 - 50.2 % 04/14/2020 20:43 [facility] MCV 93 81 - 95 fl 04/14/2020 20:43 [facility] MCH 30.9 27.6 - 33.0 pg 04/14/2020 20:43 [facility] MCHC 33.3 32.8 - 36.4 gm/dL 04/14/2020 20:43 [facility] RDW-CV 13.4 <14.2 % 04/14/2020 20:43 [facility] RDW-SD 45.5 <46.0 fl 04/14/2020 20:43 [facility] PLT 204 141 - 377 K/cmm 04/14/2020 20:43 [facility] MPV 9.2(L) 9.5 - 12.7 fl 04/14/2020 20:43 [facility] % Neutrophils 62.8 % 04/14/2020 20:43 [facility] % Lymphocytes 25.4 % 04/14/2020 20:43 [facility] % Monocytes 6.8 % 04/14/2020 20:43 [facility] % Eosinophils 3.1 % 04/14/2020 20:43 [facility] % Basophils 1.6 % 04/14/2020 20:43 [facility] % Immature Grans 0.3 % 04/14/20 20 20:43 [facility] Absolute Neutrophils 2.40 2.20 - 8.85 K/cmm 04/14/2020 20:43 [facility] Absolute Lymphocytes 0.97(L) 1.09 - 3.30 K/cmm 04/14/2020 20:43 [facility] Absolute Monocytes 0.26 0.10 - 0.80 K/cmm 04/14/2020 20:43 [facility] Absolute Eosinophils 0.12 0.03 - 0.61 K/cmm 04/14/2020 20:43 [facility] ABS Basophils 0.06 0.01 - 0.11 K/cmm 04/14/2020 20:43 [facility] Absolute Immature Grans 0.01 0.00 - 0.06 K/cmm 04/14/2020 20:43 [facility] Type of Differential: Auto 04/14/2020 20:43 [facility] Blood VENOUS BLOOD / Unknown 04/14/2020 11:06 EDT 04/14/2020 20:23 EDT us Sun Bess RETAIL COVERAGE MERCHANDISER PACKAGES & DNA PROBE ORDERABLE S Final Result [facility] [address] [place] [address] * (ABNORMAL) BASIC METABOLIC PANEL (BMP) (04/14/2020 11:06 EDT) Sodium 134(L) 136 - 145 mEq/L 04/14/2020 20:43 [facility] Potassium 4.6 3.5 - 5.0 mEq/L 04/14/2020 20:43 [facility] Chloride 99 96 - 110 mEq/L 04/14/2020 20:43 [facility] CO2 Total 29 22 - 32 mEq/L 04/14/2020 20:43 [facility] Glucose 109(H) 70 - 100 mg/dL 04/14/2020 20:43 [facility] Calcium 9.5 8.5 - 10.5 mg/dL 04/14/2020 20:43 [facility] Calculated Calcium 9.3 8.5 - 10.5 mg/dL 04/14/2020 20:43 [facility] BUN 12 10 - 26 mg/dL 04/14/2020 20:43 [facility] Creatinine 0.76 0.66 - 1.25 mg/dL 04/14/2020 20:43 [facility] eGFR 91 >60 mL/min/1.7 3m2 04/14/2020 20:43 [facility] Comment:eGFR calculated lina hawley CKD-EPI equation for non- Americans. Multiply eGFR by 1.16 for patients. Blood VENOUS BLOOD / Unknown 04/14/2020 11:06 EDT 04/14/2020 20:23 EDT us Sun Bess NP CHEMISTRY & BLOOD GAS ORDERABL ES Final Result [facility] [address] [place] [address] * PROTIME (04/14/2020 11:06 EDT) I.N.R. 1.0 0.9 - 1.1 Ratio 04/14/2020 20:51 [facility] Pro Time 11.6 10.3 - 13.4 secs 04/14/2020 20:51 EDT [facility] Blood VENOUS BLOOD / Unknown 04/14/2020 11:06 EDT 04/14/2020 20:15 EDT Narrative [facility] - 04/14/2020 20:51 EDT Moderate Intensity Coumadin INR = 2.0-3.0 Adjustments in anticoagulant therapy dose should be based on the INR and NOT on the Protime. Sun Bess RETAIL COVERAGE MERCHANDISER HEMATOLOGY & PF4 ORDERABLES Fi nal Result [facility] [address] [place] [address] documented in this encounter Visit Diagnoses Diagnosis Pain in left shoulder Pain in joint, shoulder region Encounter for other preprocedural examination documented in this encounter Additional Health Concerns Infection Onset Date Last Indicated Resolved Time R/O COVID-19 04/15/2020 04/15/2020 04/20/2020 22:1 6 EDT documented as of this encounter Care Teams Mechanic Senior Relationship Specialty Start Date End Date Lasha Angelo MD PCP - General Family Medicine - Primary Care 01/09/20 06/23/21 Sangita Nolasco MD PCP - General 06/24/21 documented as of this encounter
--- OUTSIDE RECORDS SUMMARY | 2024-11-26 13:59 | XMS_ITS | Encounter Summary ---
Author Organization [facility] Address [address] [place] [address] Care Team Providers Care Physician Allergist Immunologist Name Role Phone Darnell Taylor MD Primary Care Provider [phone] Reason for Visit * Reason Comments Hand Pain left on going for a year * Consult (Routine) - Closed Specialty Diagnoses / Procedures Referred By Nelia sanford Referred To Contact Orthopedic Surgery Diagnoses Bilateral hand pain Self, Referral Murtaza Liang MD Phone: tel: fax: Referral ID Status Reason Start Date Expiration Date Visits Re quested Visits Authorized [id number] Closed 1 1 Encounter Details Date Type Department Care Team (Late st Contact Info) Description 05/25/2018 15:00 EDT Office Visit [facility] Orthopedic Surgery - [address] [place] [address] Murtaza Liang MD [address] [place] [address] [phone] Carpal tunnel syndrome, bilateral (Primary Dx) Social History Tobacco Use Types [...] - Inhaled Oxygen Concentration - - Weight 79.4 kg (175 lb) 05/25/2018 1503 EDT Height 172.7 cm (5' 8) 05/25/2018 1503 EDT Body Mass Index 26.61 05/25/2018 1503 EDT documented in this encounter Patient Instructions * Patient Instructions* Murtaza Liang MD - 05/25/2018 15:37 EDT Images from the original note were not included. [facility] Patient Instructions Carpal Tunnel Syndrome: Exercises Your Care Instructions Here are some examples of typical rehabilitation exercises for your condition. Start each exercise slowly. Ease off the exercise if you start to have pain. Your doctor or your physical or occupational therapist will tell you when you can start these exercises and which ones will work best for you. Warm-up stretches When you no longer have pain or numbness, you can do exercises to help prevent carpal tunnel syndrome from coming back. Do not do any stretch or movement that is uncomfortable or painful. 1. Rotate your wrist up, down, and from side to side. Repeat 4 times. 2. Stretch your fingers far apart. Relax them, and then stretch them again. Repeat 4 times. 3. Stretch your thumb by pulling it back gently, holding it, and then releasing it. Repeat 4 times. How to do the exercises Prayer stretch 1. Start with your palms together in front of your chest just below your chin. 2. Slowly lower your hands toward your waistline, keeping your hands close to your stomach and yourpalms together until you feel a mild to moderate stretch under your forearms. 3. Hold for at least 15 to 30 seconds. Repeat 2 to 4 times. Wrist flexor stretch 1. Extend your arm in front of you with your palm up. 2. Bend your wrist, pointing your hand toward the floor. 3. With your other hand, gently bend your wrist farther until you feel a mild to moderate stretch in your forearm. 4. Hold for at least 15 to 30 seconds. Repeat 2 to 4 times. Wrist extensor stretch 1. Repeat steps 1 through 4 of the stretch above, but begin with your extended hand palm down. Follow-up care is a ludwig part of your treatment and safety. Be sure to make and go to all appointments, and call your doctor if you are having problems. It's also a good idea to know your test resultsand keep a list of the medicines you take. Where can you learn more? Go to [email or web address] or log into your [employer] account at [email or web address]. Enter U908 in the search box to learn more about Carpal Tunnel Syndrome: Exercises. Current as of: September 13, 2017 Content Version: 11.6 ?? [id number] [employer]. Care instructions adapted under license by [facility] If you have questions about a medical condition or this instruction, always ask your healthcare professional. [employer] disclaims any warranty or liability foryour use of this information. Post Injection Care The information below is provided to help you manage your post-injection experience. Please feel free to call if you have any concerns after receiving your injection. Medications used in your injection today may include: ??? Marcaine (a long acting anesthetic) ??? Lidocaine (a short acting anesthetic) ??? Steroid (synthetic cortisone - i.e. Depo-Medrol) ??? Euflexxa or Gel One (viscoelastic supplementation) Normal findings after the injection include: ??? Soreness, slight throbbing or swelling at the injection site for up to two days ??? Two to three days for the pain to be relieved ??? Increased joint pain or discomfort for the first 24 to 48 hours before the steroid takes effect Recommendations after injection: ??? Rest the injected extremity for the next TWO DAYS (no exercise or strenuous activity) ??? Apply ice to the injection area for 10 to 15 minutes every hour or two for the first day ??? Take Tylenol (acetaminophen) or Advil (ibuprofen) as directed by groundman/lineman if not contraindicated ??? No Swimming for 24hours; No Soaking or Hot Tub for 48hours. Please contact our office if the following occurs: ??? Severe itching or rash anywhere on your body; if this is accompanied by shortness of breath please go to your nearest Emergency Room ??? Extreme redness, swelling or warmth at the injection site ??? These symptoms could be signs of an early infection, which is rare The amount and duration of pain relief from an injection varies widely between patients; some report pain relief for months, while other patients report only a few weeks of relief. DIABETIC WARNING: If you are diabetic and this injection may elevate your blood sugars for the nextone to five days. Please monitor your blood sugars closely and if they fail to return to your acceptable level please see your primary care physician Thank you for choosing the [facility] for your care. If you have any questions after receiving an injection, or if your pain does not subside, please call at [phone] and let us know. Our goal is to lessen your pain and improve your function. documented in this encounter Progress Notes * Murtaza Liang MD - 05/25/2018 1500 EDT The patient presents with hand pain involving his Left hand. The patient's pain is rated as 8 and radiates to to fingers and forearm. Symptom onset was gradual approximately 1 years(s) ago due to a lot of driving. Symptoms are associated with numbness and weakness. REVIEW OF SYSTEMS: Yes No Yes No Fever/Chills x Joint pain x x Fatigue x Muscle pain x x Night sweats x Morning stiffness x Weight change x If yes, duration Gain or loss? Numbness/tingling x x Headaches x If yes, where? hands Dizziness x Muscle weakness x x Chest pain x Excessive thirst x Shortness of breath x Change in mood x Cough x Nervous or anxious x Nausea/vomiting x Sad or depressed x Abdomnial pains/cramps x Excessive bruising x x Heartburn/Reflux x Urinary Changes x Rash x Balance Issues x The patient is a 72-year-old kgscn-droq-kgktarge man who presents today with pain in his wrists andhands bilaterally. The left side is worse than the right. The patient states he has occasional numbness and tingling but his symptoms are predominantly pain as well as stiffness in his fingers. He has difficulty making a full fist particularly on the left side. Symptoms have been going on for about a year. He rates his pain as an 8 out of 10. 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 He has weakness in his hands in addition to the stiffness and pain. The patient had a previous EMG/nerve conduction study which demonstrated left carpal tunnel syndrome as well as borderline carpal tunnel on the right. No other neuropathy was noted. The past medical, family and social history have been reviewed in the patient chart. OBJECTIVE: Ht 172.7 cm (68) Wt 79.4 kg (175 lb) BMI 26.61 kg/m2 Psych: He is alert and oriented x 3 with normal affect. Constitutional: He is well-developed and in no significant distress. Eyes: Sclerae clear. Heart: Regular rate and rhythm Resp: Breathing is regular and nonlabored without audible wheezing. Musculoskeletal: Right wrist and hand: Mild tenderness over the carpal tunnel. Wrist range of motion is full. Phalen's test re-creates the patient's symptoms but does not produce numbness and tingling into the fingers. A Tinel's sign is positive causing an electrical shock out to the digits. A carpal compression test again re-creates the patient's symptoms. The patient has full digital range of motion on this right side. He has good capillary refill throughout. He has normal sensation to light touch throughout his hand. No thenar eminence atrophy is noted. Left wrist and hand: Moderate tenderness over the carpal tunnel. Wrist range of motion is full. Phalen's test again re-creates the patient's symptoms but does not cause any numbness in his fingers. Tinel's sign causes electrical shock out to the digits and a carpal compression test re-creates his symptoms. He has limited range of motion on the left side coming to about 1 cm of his palm with his digits symmetrically. Thumb range of motion is full. He has no atrophy of his thenar eminence. He hasnormal sensation to light touch throughout the hand. ASSESSMENT/PLAN: Encounter Diagnosis Name Primary? Carpal tunnel syndrome, bilateral Yes Physical examination today would suggest that the patient does have carpal tunnel syndrome but has a somewhat odd presentation with no significant numbness or tingling. The patient and I discussed treatment options but I suggested that a cortisone injection would be very helpful both diagnosticallyand therapeutically. If the patient gets complete relief from his symptoms then that would make us feel better about the diagnosis of his carpal tunnel syndrome, while if he does not get better with an injection then we would need to rethink that diagnosis. He wanted to do the injection on the leftside where symptoms are more severe. I will follow-up with him in 2 weeks to see how he is done with the injection. The patient has worn bilateral wrist splints and saw no benefit from the splinting. Patient had the following injection in to the Left wrist Lidocaine HCL (5mL)- 1% Med lot number: [id number] [facility] number: [id number] BUD: 04/06 Paper Finisher: BHAVANA [employer] Depo Medrol 40mg/mL Med lot number: [id number] [facility] number: [id number] BUD: 03/2019 Paper Finisher: Radhika Schwab [employer] Kanwal [place] 15:45 documented in this encounter Plan of Treatment Not on file documented as of this encounter Visit Diagnoses Diagnosis Carpal tunnel syndrome, bilateral- Primary Carpal tunnel syndrome documented in this encounter Care Teams Physician Allergist Immunologist Relationship Specialty Start Date End Date Darnell Taylor MD [address] [place] [id number] PCP - General 03/02/12 07/29/19 documented as of this encounter
--- OUTSIDE RECORDS SUMMARY | 2024-11-26 13:59 | XMS_ITS | Encounter Summary ---
Author Organization [facility] Address [address] [place] [address] Care Team Providers Care Experimental Mechanic Electrical Name Role Phone Lasha Angelo MD Primary Care Provider [phone] Reason for Visit * Reason Onset Date Comments DME 04/07/2020 04/21/20 surgery w /Dr. Howell Encounter Details Date Type Department Care Team (Late st Contact Info) Description 04/07/2020 Orders Only [facility] Orthopedic Surgery - [address] [place] [address] Agusto Howell III, MD [address] [place] [address] Rotator cuff syndrome, unspecified laterality (Primary Dx); Strain of left trapezius muscle, subsequent encounter; Sprain, coracoclavicular ligament, left, subsequent encounter; Arthritis of left shoulder region; Adhesive bursitis of left shoulder Social History Tobacco Use Types Packs/Day Years [...] as of this encounter Progress Notes * Joy Alvarez RN - 04/07/2020 1312 EDT Orders taken and repeated from Dr. Howell for pre op order set to be ordered per his pre- op protocol. Order for pre-operative covid-19 testing to be performed prior to scheduled surgery per Dr. Howell. documented in this encounter Plan of Treatment Not on file documented as of this encounter Results * COVID-19 TESTING (04/17/2020 12:55 EDT) COVID-19 rt-PCR Result Negative Negative 04/17/2020 17:51 EDT [facility] Comment: This test has not [...] history, and epidemiological information. Performed on the [employer] Fusion instrument Performing Lab [place] [facility] 04/17/2020 17:51 EDT [facility] Swab ENTIRE NASOPHARYNX / Unknown Swab / Unknown 04/17/2020 12:55 EDT 04/17/2020 12:55 EDT us Agusto Howell III, MD MICROBIOLOGY - GENERAL ORD ERABLES Final Result [facility] [address] [place] [address] documented in this encounter Visit Diagnoses Diagnosis Rotator cuff syndrome, unspecified laterality- Primary Strain of left trapezius muscle, subsequent encounter Sprain, coracoclavicular ligament, left, subsequent encounter Arthritis of left shoulder region Unspecified arthropathy, shoulder region 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 documented in this encounter Orders Equipment Count Last Ordered Date First Orde red Date ROTATOR CUFF REPAIR 1 04/07/2020 SHOULDER ARTHROSCOPY 1 04/07/2020 documented in this encounter Care Teams Experimental Mechanic Electrical Relationship Specialty Start Date End Date Lasha Angelo MD PCP - General Family Medicine - Primary Care 01/09/20 06/23/21 documented as of this encounter
--- OUTSIDE RECORDS SUMMARY | 2024-11-26 13:59 | XMS_ITS | Encounter Summary ---
Author Organization [facility] Address [address] [place] [address] Care Team Providers Care Operator Command Support Systems Name Role Phone Darnell Taylor MD Primary Care Provider [phone] Reason for Visit * Reason Onset Date Comments Employment Physical 09/29/2016 Encounter Details Date Type Department Care Team (Late st Contact Info) Description 09/29/2016 Telephone [facility] Orthopedic Surgery - [facility] [address] [place] [address] All Rodriguez MD [address] [place] [phone] Employment Physical Social History Tobacco Use Types Packs/Day Years [...] encounter Miscellaneous Notes * Telephone Encounter - Jonel Nuñez - 09/29/2016 1133 EST Left voicemail advising last work status was done on 11/18/2015 advising no work restrictions, let him know its up to his employer if he will allow him to work overtime. * Telephone Encounter - Fanny Castaneda - 09/29/2016 1113 EST Rayo phoned would like an updated work note stating he is okay to work Overtime. Please contact pt at [phone] documented in this encounter Plan of Treatment Not on file documented as of this encounter Visit Diagnoses Not on filedocumented in this encounter Care Teams Operator Command Support Systems Relationship Specialty Start Date End Date Darnell Taylor MD [address] [place] [id number] PCP - General 03/02/12 07/29/19 documented as of this encounter
--- OUTSIDE RECORDS SUMMARY | 2024-11-26 13:59 | XMS_ITS | Encounter Summary ---
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 Capsular mobilization: ER and IR at 0 degrees and 90 degrees of abduction in the Scapular plane AAROM-AROM Progress strengthening rotator cuff and scapular stabilizers Avoid strengthening above chest until rotation is nearly equal to contralateral side (or normalizes) May wean to an independent program as able Reason for Visit * Reason Comments Pain Encounter Details Date Type Department Care Team (Latest Contact Info) Description 01/13/2020 8:30 EDT Telemedicine [facility] Orthopedic Surgery - [facility] [address] [place] [address] Agusto Howell III, MD [address] [place] [address] Tear of left supraspinatus tendon [...] 16:01 EDT documented as of this encounter Progress Notes * Agusto Howell III, MD - 01/13/2020 0830 EDT This 74-year-old ambidextrous male is known to me from a left supraspinatus repair, decompression and distal clavicle excision in December 2013. A chronic long head of the biceps rupture was noted. 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 He felt a popping sensation and increased pain ever since. He saw Marie Wyman PA-C several weeks later where x-rayswere taken showing moderate glenohumeral arthrosis with no superior migration of the humeral head that was significant pain and dysfunction. An MRI study was ordered which is discussed below. He was given an image guided injection of local anesthetic corticosteroid on November 27, 2019 which was quite helpful for about 5-7 days. Due to his persistent symptoms he has been kept out of work by Marie Wyman PA-C. He had attended [facility] for several weeks through [facility]. He hasnot been back to physical therapy in part due to the coronavirus pandemic. This patient is following up with me at his request. It is by telephone due to the coronavirus problem. He states that his pain is primarily from the posterior superior shoulder radiating over the superior shoulder and down anterosuperiorly toward his biceps. He denies radiation distal to this. He believes he has lost some motion but has gained some of it relative to what he had lost last August. He definitely feels weak particularly which is his hand away from his body or above his chest. He denies numbness and tingling is a major component of his symptoms. He does not mention any swelling down his arm. He does not feel able to return to driving a bus because of his persistent symptoms. 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 He is 1-1/2 years away from his planned nursing home and would like to get back to work to finish that time but at present does not feel ableto do so and once again does not have his license. I have reviewed the past medical history, past family history, social history outlined in this chart Objective: Patient reports some mild to moderate diminished range of motion but was not examined by me today. I have independently visualized his plain x-rays [...] sclerosis from prior suture anchor placement noted. I have also independently visualized his left [...] rotator cuff on the sagittal oblique views. Assessment: Encounter Diagnoses Name Primary? Tear of left supraspinatus tendon Yes ??? Infraspinatus tendon tear, left, subsequent encounter ??? Partial tear of subscapularis tendon, left, subsequent encounter ??? Osteoarthritis of left glenohumeral joint ??? Secondary adhesive capsulitis of left shoulder ??? Chronic left shoulder pain Plan: I spent 30 minutes of telephone time with this patient all of which was spent counseling. We discussed the anatomy of the shoulder, the pathoanatomy of the above findings. We discussed that the precise source of shoulder pain can be difficult to determine which often could relate to referred pain from the neck area versus from the acromioclavicular joint versus the subacromial space versus rotator cuff musculotendinous units versus the long head of the biceps versus the labrum versus the glenohumeral joint as well as the biomechanics of the scapula relative to the glenohumeral joint and the muscle units involved in maintaining that relationship. On occasion neurologic issues are involved. Distinguishing between these various contributors is difficult. It is potentially difficult to determine the source of his symptoms without being able to physically examine h im but it would seem as if his symptoms are largely secondary to his rotator cuff pathology more sothan his underlying glenohumeral arthrosis. We also discussed operative and nonoperative treatment options. We discussed benefits, risks and complications of all of the options. We discussed perioperative and postoperative management of the surgical options along with time frame of immobilization and anticipated return to activity schedules. All of the patient's questions were answered. At present he will continue with his independent exercise program, use topical ice for pain management and resume physical therapy at [facility] when that office reopens presumably after the pandemic hasresolved. Unfortunately he does not have a computer or any way to utilize an online service at his home. I recommended that he make an appointment to see me in 6 weeks to check on his progress, hopefully our office will be open for patient visits by then, if not another telephone conversation will need to suffice. We did discuss potential future surgical options including arthroscopic revision rotator cuff repair and possibly with dermal allograft supplementation versus total shoulder arthroplasty. His physical findings will be quite helpful in trying to determine which of those would be the most appropriatehowever with luck and is continue to exercise perhaps he will be able to work his way out of this problem and function reasonably well without any further surgery. I will write a work restriction note saying he cannot use his left upper extremity at all until reevaluated. This note was prepared with the aid of voice recognition technology. My attempts at proofreading sometimes misses mistakes. All attempts are made to reproduce pertinent clinical information but sometimes grammatical mistakes and inappropriate word spelling occurs. I apologize for any inconvenience. documented in this encounter Plan of Treatment Scheduled Referrals Name Type Priority Associated Diagnoses Orde r Schedule AMB CONS/FOLLOW UP PHYSICAL THERAPY Outpatient Referral Routine Tear of left supraspinatus tendon Infraspinatus tendon tear, left, subsequent encounter Partial tear of subscapularis tendon, left, subsequent encounter Osteoarthritis of left glenohumeral joint Secondary adhesive capsulitis of left shoulder Chronic left shoulder pain Ordered: 01/13/2020 documented as of this encounter Visit Diagnoses Diagnosis Tear of left supraspinatus tendon- Primary Infraspinatus tendon tear, left, subsequent encounter Partial tear of subscapularis tendon, left, subsequent encounter Osteoarthritis of left glenohumeral joint Secondary adhesive capsulitis of left shoulder Chronic left shoulder pain Pain in joint, shoulder region documented in this encounter Discontinued Medications Medication Sig Discontinue Reason Start Date End Da te HYDROmorphone (DILAUDID) 2 mg tablet Take 1-2 Tabs by mouth every 3 hours as needed for Pain Daily Max: 32 mg Therapy completed 08/27/2015 01/13/2020 DIAZepam (VALIUM) 5 mg tablet Take 1 Tab by mouth once for 1 dose. Repeat PRN Daily Max: 10 mg Therapy completed 09/18/2019 01/13/2020 pantoprazole (PROTONIX) 40 mg tablet Take 40 mg by mouth at bedtime. Reported on 10/25/2016 Therapy completed 01/13/2020 FERROUS FUMARATE (IRON ORAL) Take by mouth at bedtime. Reported on 10/25/2016 Therapy completed 01/13/2020 documented as of this encounter Care Teams Fruit Picker Machine Operator Relationship Specialty Start Date End Date Lasha Angelo MD PCP - General Family Medicine - Primary Care 01/09/20 06/23/21 documented as of this encounter
--- OUTSIDE RECORDS SUMMARY | 2024-11-26 13:59 | XMS_ITS | Encounter Summary ---
Author Organization [facility] Address [address] [place] [address] Care Team Providers Care Hob Machine Operator Name Role Phone Darnell Taylor MD Primary Care Provider [phone] Reason for Referral * Radiology Services (Routine) - New Request Specialty Diagnoses / Procedures Referred By Nelia snaford Referred To Contact Diagnoses Arthritis of left glenohumeral joint Procedures FL GUIDED LOCALIZATION, ASPIRATION, INJECTION, BIOPSY Marie Wyman PA-C Phone: tel: fax: Referral ID Status Reason Start Date Expiration Date V isits Requested Visits Authorized [id number] New Request 10/30/2019 1 1 Encounter Details Date Type Department Care Team (Late st Contact Info) Description 10/30/2019 Orders Only [facility] Orthopedic Surgery - [facility] [place] [address] [place] [address] Marie Wyman PA-C [address] [place] [phone] Arthritis of left glenohumeral joint (Primary Dx) Social History Tobacco Use Types [...] as of this encounter Progress Notes * Marie Wyman PA - 10/30/2019 1402 EST I discussed this case with Dr. Romero, who does not feel that there is significant failure of the rotator cuff repair. Patient may have an exacerbation of glenohumeral joint arthritis. I spoke with the patient, he is agreeable to radiographically guided cortisone injection to the left glenohumeraljoint. Patient should return to physical therapy after the cortisone injection. Should allow at least 2 weeks of physical therapy and cortisone injection for effectiveness. If he does not have reliefafter 2 weeks, follow-up with Dr. Romero. If he improves, he should follow-up with me 2 to 4 weeksafter the injection. 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 Romero. documented in this encounter Plan of Treatment Not on file documented as of this encounter Results * FL GUIDED INJECT/ASPIR [...] the intra-articularadministration of the steroid and ropivacaine. us Marie Wyman PA-C IMG FLUOROSCOPY ORDERABLE S Final Result documented in this encounter Visit Diagnoses Diagnosis Arthritis of left glenohumeral joint- Primary Arthritis of left glenohumeral joint documented in this encounter Care Teams Hob Machine Operator Relationship Specialty Start Date End Date Darnell Taylor MD PCP - General 07/30/19 01/08/20 documented as of this encounter
--- OUTSIDE RECORDS SUMMARY | 2024-11-26 13:59 | XMS_ITS | Encounter Summary ---
Author Organization [facility] Address [address] [place] [address] Care Team Providers Care Pull Socket Assembler Name Role Phone Darnell Taylor MD Primary Care Provider [phone] Reason for Visit * Reason Onset Date Comments Appointment Related 11/05/2019 Encounter Details Date Type Department Care Team (Late st Contact Info) Description 11/05/2019 Telephone [facility] Orthopedic Surgery - [facility] [place] [address] [place] [address] Marie Wyman PA-C [address] [place] [phone] Appointment Related Social History Tobacco [...] Telephone Encounter - Kanwal Stanford MA - 11/05/2019 1309 EST ----- Message from Myra Castaneda sent at 11/05/2019 7:17 EST ----- Regarding: date/time Zam[facility] Check in at 1230 3rd floor registration [facility] 11/27/19. Radiology nurses will call with any prep Thanks Sarika Please call after injection to schedule with Marie Wyman the 2nd or 3rd week of December. The December calendar is not available at this time. The patient agreed to do this. documented in this encounter Plan of Treatment Not on file documented as of this encounter Visit Diagnoses Not on filedocumented in this encounter Care Teams Pull Socket Assembler Relationship Specialty Start Date End Date Darnell Taylor MD PCP - General 07/30/19 01/08/20 documented as of this encounter
--- OUTSIDE RECORDS SUMMARY | 2024-11-26 13:59 | XMS_ITS | Encounter Summary ---
Author Organization [facility] Address [address] [place] [address] Care Team Providers Care Immunology Teacher Name Role Phone Darnell Taylor MD Primary Care Provider [phone] Encounter Details Date Type Department Care Team (Latest Contact Info) Description 08/27/2015 7:36 EST - 08/27/2015 13:23 EST Hospital Encounter [facility] Perioperative Services - [address] [address] Jose Cruz Rodriguez MD [address] [place] [phone] Discharge Disposition: Home or Self Care [...] Sign Reading Time Taken Comments Blood Pressure 150/69 08/27/2015 1300 EST Pulse - - Temperature 36.7 ??C (98.1 ??F) 08/27/2015 1245 EST Respiratory Rate 14 08/27/2015 1300 EST Oxygen Saturation 98% 08/27/2015 1300 EST Inhaled Oxygen Concentration - - Weight 79.4 kg (175 lb) 08/17/2015 1546 EST Height 172.7 cm (5' 8) 08/17/2015 1546 EST Body Mass Index 26.61 08/17/2015 1546 EST documented in this encounter Discharge Instructions * Discharge Instructions* Jose Cruz Rodriguez MD - 08/27/2015 8:16 EST [facility] Post-Operative Instructions Post-Operative Care: For the first two or three days after your surgery, plan to stay close to home. Elevate your knee above your heart for 48 hours except for meals and bathroom breaks. Wiggle your toes and ankle frequently. You may start gently bending your knee after 24 hours, always working to straighten it out fully. Crutches: Use crutches for balance. You may fully weight bear on the knee as weakness and pain allow, unless you are told otherwise by your surgeon. Ice Bag: Keep an ice bag or ice in several plastic bags on your knee for the first 12 to 24 hours, but remove it for 15 minutes or so every hour. Always have the dressing or a cloth between the ice bag and your skin. If there is only a thin cloth between your skin and the ice, only leave it on 20 minutes taylor time and take it off for 10 minutes. Do not let the bandages get wet from the ice. Bandages: The dressing may be removed two days after surgery and band-aids applied. You may shower after 48 hours. Never let a wet band-aid stay on the wound; change it. Swelling: There will be some fluid in the knee for at least a few days. If an elastic bandage was placed on your knee after surgery, it may be rewrapped as needed to help your comfort and swelling. Loosen it if your toes become blue, numb or tingle. Pain: As the local anesthetic wears off from surgery (usually in 4 to 8 hours), you may anticipate an increase in the amount of pain you feel. If your knee aches despite resting, elevation, and using the ice bag, use the pain medication prescribed for you. Activities: Depending on how you feel, returning to work or school may be possible on about the fourth day. Do not undertake any strenuous work or play on the knee until we have discussed it in the office. Exercises: You may start quad sets 24 hours after surgery. Tense your thigh muscles while holding the knee straight, locking your kneecap. This should be held for 10 seconds, then released. Do this 15 to 20 times in a row, rest only a few seconds between contractions. This can be done as often as possible throughout the day, but no less than 3 times per day. Work at bending and straightening your knee with gentle but steady pressure after 48 hours from surgery. Take this to the point of pain and just slightly further to progress without causing further harm. Follow-Up Appointment: This should occur between six and twelve days after surgery. At this time, your sutures will be removed and further rehabilitation will be directed. Medications: You will be given a prescription for several medications, including ones to help relieve pain. It is difficult to predict who will and who will not have discomfort, and therefore, we urge you to obtain the prescription(s) and have them available. If the pain persists or becomes more severe after the first day or so, this should be reported immediately. A list of medications that are commonly usedfor post-op knee arthroscopy patients includes: . Dilaudid (hydromorphone) for severe pain. . Aspirin -take one pill daily for 7-10 days to reduce risk of blood clots (assuming no allergies to aspirin). . Tylenol for mild pain (not to exceed 4000 mg). . Advil- up to 12 per day. r. For any questions of unusual pain, swelling, bleeding, chills fever, or redness, PLEASE CALL SOON POSSIBLE. OTHER INSTRUCTIONS: documented in this encounter Medications at Time [...] 10/25/2016 01/13/2020 documented as of this encounter Ordered Prescriptions Prescription Sig Dispense Quantity Refills Last Filled Start Date End Date HYDROmorphone (DILAUDID) 2 mg tablet Take 1-2 Tabs by mouth every 3 hours as needed for Pain Daily Max: 32 mg 30 Tab 0 08/27/2015 01/13/2020 documented in this encounter Discharge Disposition Disposition Code Departure Means Destination Home or Self Care documented in this encounter Progress Notes * Angelina Llamas RN - 08/17/2015 1600 EST Barrett Salvador has been instructed as follows regarding medication administration for the day of the scheduled procedure. Date of Surgery: 08/27/2015 Instructions for Taking Medications Day of Surgery Medication Sig Last Dose Hold DOS Take DOS aspirin 81 mg EC tablet Take 81 mg by mouth at bedtime Instructed to take 01/18-01/21/13 FERROUS FUMARATE (IRON ORAL) Take by mouth at bedtime Multivitamins with Minerals Tab Take 1 Tab by mouth daily. 08/20/2015 pantoprazole (PROTONIX) 40 mg tablet Take 40 mg by mouth at bedtime. documented in this encounter H&P Notes * Jose Cruz Rodriguez MD - 08/27/2015 0815 EST The preoperative history and physical which was performed within 30 days of this procedure has been reviewed and the clinically appropriate elements of the physical examination have been repeated. There are no changes to the documented history and physical or if so such changes are documented below JOSE CRUZ RODRIGUEZ MD 08/27/2015 8:15 Source Note - COUNTY DIRECTOR WELFARE, EDWARDO 2 - 08/20/2015 9:45 EST documented in this encounter OR Notes * OR Surgeon - Jose Cruz Rodriguez MD - 08/27/2015 1841 EST OPERATIVE REPORT SERVICE DATE: 08/27/2015 PREOPERATIVE DIAGNOSIS: Locked right knee with bucket-handle medial meniscus tear, early arthrosis. POSTOPERATIVE DIAGNOSIS: Locked right knee with bucket-handle medial meniscus tear, early arthrosis. PROCEDURE: Arthroscopic partial medial meniscectomy of bucket-handle tear and gentle debridement medial femoral condyle. SURGEON: Jose Cruz Rodriguez MD MIRROR FABRICATION SUPERVISOR: COMPLICATIONS: None. COUNTS: Correct. DRAINS: None. DISPOSITION: Stable to recovery. ANESTHESIA: General LMA. INDICATIONS: Locked knee and pain for a year right medial knee with locking over the last several weeks, necessitating arthroscopic exam. NARRATIVE: The patient was brought to the operating room after being identified in the holding area. Anesthesia was obtained by the anesthesia staff. The leg was prepped and draped in the usual sterile fashion for this procedure. A time- out was performed for patient, site, and procedure. Approximately 25 mL of Marcaine 0 .25% with epinephrine were placed in the areas to be incised to aid in hemostasis. Through standard medial and lateral parapatellar stab incisions made with an 11 blade throughskin and subcu, the arthroscope and arthroscopic instruments were carefully introduced. Thorough systematic examination of the knee was performed. Notable findings included bucket handle tear of the medial meniscus. It was locked around the femur. I was able to unlock it, but the tear was quite macerated, and there was abrasion over the medial femoral condyle, grade 1 to 2. Tibia had grade 1 changes as well. The tear was then debrided by releasing it, all but a few fibers posteriorly with a biting instrument and then releasing it anteriorly, then the majority of the tear was then grasped with a grasper and removed from the knee. Then a 3.5 and 4.5 sucker shaver instruments were used to remove loose meniscal debris and smooth and bevel the edges of the medial meniscus back to stable, well-balanced, well-beveled meniscal border. Gentle d ebridement was done of the femoral condylar flaps and then ACL and PCL were stable and intact in the notch. The patellofemoral joint was stable and intact with good tracking and the lateral articularsurfaces looked good with no major chondral loss and intact popliteal tendon and hiatus. The gutters were clear. Closure: Then multiple cycles of irrigation and drainage were performed. All loose debris sucked free and out of the knee. Twenty mL of ropivacaine 0.2% were injected into the portals and joint for postoperative pain control. Wounds were closed with 4-0 Monocryl suture. Sterile compression dressingwas placed and a Kold-Pack placed over the dressing. The patient was taken to the recovery room in stable condition with pink extremities and good capillary refill. At the beginning of the case, the VisionScope was used through the medial portal to visualize the cartilage in the tear. Unless otherwise noted, there were no complications, no blood loss, no cultures obtained, no specimens removed, and no drains retained. Jose Cruz Rodriguez MD 11 10 AM / Jose Cruz Rodriguez MD jn Confirmation: [id number] Dictation ID: [id number] documented in this encounter Miscellaneous Notes * Anesthesia Post-Eval - Paul Feliciano MD - 08/27/2015 1310 EST Post Anesthesia Evaluation Note Date of Service: 08/27/2015 Barrett Salvador, a 69 y.o. year old male has received General Anesthesia today. He has been evaluated, assessed and discharged from anesthesia care with stable cardiorespiratory function and alert mental status. The last set of recorded vital signs and pain rating were reviewed: Temp: 36.7 ??C (98.1 ??F) (08/27/15 1245), Heart Rate: 67 BPM (08/27/15 1300), BP: (!) 150/69 mmHg (08/27/15 1300), Resp: 14 (08/27/15 1300), SpO2: 98 % (08/27/15 1300),Numeric Pain Level (Scale 1-10): 0 Barrett Salvador participated in this evaluation unless otherwise noted. His pain, nausea and vomiting have been managed and his body temperature and fluid balance have been restored. Additional monitoring and assessment needs have been addressed. If present, any postoperative events are documented below. Paul Feliciano MD 08/27/2015 13:11 documented in this encounter Plan of Treatment Not on file documented as of this encounter Procedures Procedure Name Priority Date/Time Associated Diagnosis Comments ECG REPORT - SCANNED 09/01/2015 7:33 EST ECG REPORT - SCANNED 08/20/2015 9:45 EST documented in this encounter Results * ECG REPORT - SCANNED (09/01/2015 7:33 EST) 09/01/2015 7:33 EST us Scan 2 Template Cutter PROCEDURE/MINOR SURGICAL OR DERABLES Final Result * ECG REPORT - SCANNED (08/20/2015 9:45 EST) 08/20/2015 9:45 EST us Scan 2 Template Cutter PROCEDURE/MINOR SURGICAL OR DERABLES Final Result documented in this encounter Visit Diagnoses Not on filedocumented in this encounter Administered Medications Inactive Administered Medications - up to 3 most recent administrations Medication Order MAR Action Action Date Dose Rate Site lactated ringers (LR) infusion at 25 mL/hr, intravenous, CONTINUOUS, Starting on Nida 08/27/15 at 0900, Until Nida 08/27/15 at 1536, Routine, Pre Op Day of Surgery New Bag 08/27/2015 8:55 EST 25 mL/hr documented in this encounter Discontinued Medications Medication Sig Discontinue Reason Start Date End Da te lisinopril-hydrochlorot hiazide (PRINZIDE, ZESTORETIC) 20-12.5 mg per tablet Take 1 Tab by mouth daily. Therapy completed 08/17/2015 hydrOXYzine (ATARAX) 10 mg tablet Take 1 Tab by mouth 3 times daily as needed for Itching. Therapy completed 01/02/2014 08/17/2015 HYDROmorphone (DILAUDID) 2 mg tablet Take 1-2 Tabs by mouth every 3 hours. Earliest Fill Date: 01/02/14 Therapy completed 01/02/2014 08/17/2015 documented as of this encounter Active and Recently Administered Medications Times are shown in EST. Continuous Medication Order 08/25/2015 08/26/2015 08/27/2015 lactated ringers (LR) infusion (CANCELED) at 25 mL/hr, intravenous, CONTINUOUS, Starting on Nida 08/27/15 at 0900, Until Nida 08/27/15 at 1536, Routine, Pre Op Day of Surgery 0855 (New Bag - Prov ider: Lidia Guerra, KIRSTY)1113 (Completed - Provider: Dominga Gonzalez RN) documented in this encounter Orders Medications Ordered That Nish ht Not Have Been Administered Count Last Ordered Date First Ordered Date acetaminophen (TYLENOL) solu tion unit dose cup 995 mg 1 08/27/2015 acetaminophen (TYLENOL) tablet 1,000 mg 1 1 10/27/2014 atropine 0.1 mg/mL syringe 0.5 mg 1 015 HYDROmorphone (DILAUDID) tablet 2 mg 1 08/16 HYDROmorphone (PF) (DILAUDID ) 1 mg/mL injection 0.2-1 mg 1 08/27/2015 lactated ringers (LR) infusion 1 08/27/2015 nalOXone (NARCAN) injection 0.2 mg 1 2014 Nursing Count Last Ordered Date First Orde red Date INSERT PERIPHERAL IV 1 08/27/2015 Transfer Count Last Ordered Date First Orde red Date NOTIFY PPS PACU PATIENT DISCHARGE 1 015 Discharge Count Last Ordered Date First Orde red Date DISCHARGE PATIENT 1 08/27/2015 documented in this encounter Care Teams Immunology Teacher Relationship Specialty Start Date End Date Darnell Taylor MD [address] [place] [id number] PCP - General 03/02/12 07/29/19 documented as of this encounter
--- OUTSIDE RECORDS SUMMARY | 2024-11-26 13:59 | XMS_ITS | Encounter Summary ---
Author Organization [facility] Address [address] [place] [address] Care Team Providers Care Senior Digital Designer Name Role Phone Darnell Taylor MD Primary Care Provider [phone] Encounter Details Date Type Department Care Team (Late st Contact Info) Description 12/15/2014 7:03 EST - 12/15/2014 10:17 EST Hospital Encounter [facility] Endoscopy Outpatient [address] [place] [address] Darek Collazo MD [address] [place] [address] [address] [place] [address] Discharge Disposition: Home or Self Care Social [...] Sign Reading Time Taken Comments Blood Pressure 122/66 12/15/2014 0900 EST Pulse - - Temperature 36.1 ??C (97 ??F) 12/15/2014 0730 EST Respiratory Rate 16 12/15/2014 0900 EST Oxygen Saturation 100% 12/15/2014 0900 EST Inhaled Oxygen Concentration - - Weight 81.6 kg (180 lb) 12/15/2014 0726 EST Height 172.7 cm (5' 8) 12/15/2014 0726 EST Body Mass Index 27.37 12/15/2014 0726 EST documented in this encounter Medications at Time [...] or Self Care documented in this encounter H&P Notes * Darek Collazo MD - 12/15/2014 0804 EST Endoscopy Sedation for Procedure History & Physical Date: 12/15/2014 Time: 8:04 Location: [address] Planned Procedure: Colonoscopy Chief Complaint/Indications for Procedure: h/o polyps History Previous Complication with Sedation and/or Anesthesia? No Allergies: Allergies Allergen Reactions ??? Coconut Swelling of throat ??? Lipitor [Atorvastatin] Muscle Aches Muscle weakness Current Medications: Current Outpatient Prescriptions Medication Sig Dispense Refill ??? aspirin 81 mg EC tablet Take 81 mg by mouth daily. Instructed to take 5-01/21/13 ??? FERROUS FUMARATE (IRON ORAL) Take by mouth. ??? HYDROmorphone (DILAUDID) 2 mg tablet Take 1-2 Tabs by mouth every 3 hours. Earliest Fill Date: 01/02/14 60 Tab 0 ??? hydrOXYzine (ATARAX) 10 mg tablet Take 1 Tab by mouth 3 times daily as needed for Itching. 20 Tab 0 ??? lisinopril-hydrochlorothiazide (PRINZIDE, ZESTORETIC) 20-12.5 mg per tablet Take 1 Tab by mouthdaily. ??? Multivitamins with Minerals Tab Take 1 Tab by mouth daily. ??? pantoprazole (PROTONIX) 40 mg tablet Take 40 mg by mouth at bedtime. Current Facility-Administered Medications Medication Route Frequency ??? fentaNYL citrate (PF) 50 mcg/mL injection 100-250 mcg intravenous Once PRN ??? lactated ringers (LR) infusion intravenous CONTINUOUS ??? midazolam (PF) (VERSED) 1 mg/mL injection 1-10 mg intravenous Once PRN Past Medical History: Past Medical History Diagnosis Date ??? Hypertension ??? FUENTES (dyspnea on exertion) ??? Chest heaviness ??? Abnormal stress test ??? Acid reflux ??? Snores ??? Anemia ??? Colon polyp Social History: Past Surgical History Procedure Laterality Date ??? Shoulder surgery History Substance Use Topics ??? Smoking status: Former Smoker Quit date: 01/03/1968 ??? Smokeless tobacco: Never Used ??? Alcohol Use: 0.6 oz/week 1 Glasses of wine per week Comment: 1 glass nightly of Red wine Family History: Family History Problem Relation Age of Onset ??? Heart Attack Brother Review of Systems as pertinent: Physical Exam Vital Signs: BP 135/78 Temp(Src) 36.1 ??C (97 ??F) (Tympanic) Resp 16 Ht 172.7 cm (68) Wt 81.647 kg (180 lb) BMI 27.38 kg/m2 SpO2 97% Heart Examination: Cardiac Regularity: Regular Respiratory Examination: Respiratory Pattern: Regular Breath Sounds Right: Clear Breath Sounds Left: Clear Abdominal Examination: Soft, non-tender, bowel sounds normal, no masses, no organomegaly Additional physical exam related to the proposed procedure, patient activity, disease state and treatment as pertinent: Assessment Previous complications with sedation or anesthesia?: No Airway Concerns: None Anesthesia Classification: ASA 2 Plan: Proceed with sedation for procedure Fasting Time: Time of last liquid intake: 00 Date of Last Liquid Intake: 12/15/14 Time of last solid intake: 1999 Date of last solid intake: 12/13/14 Patient Appropriate Candidate for Planned Sedation?: Yes Darek Collazo MD 12/15/2014 8:04 * Darek Collazo MD - 12/15/2014 0804 EST Endoscopy Sedation for Procedure History & Physical Date: 12/15/2014 Time: 8:04 Location: [facility] Planned Procedure: Colonoscopy Chief Complaint/Indications for Procedure: h/o polyps History Previous Complication with Sedation and/or Anesthesia? No Allergies: Allergies Allergen Reactions ??? Coconut Swelling of throat ??? Lipitor [Atorvastatin] Muscle Aches Muscle weakness Current Medications: Current Outpatient Prescriptions Medication Sig Dispense Refill ??? aspirin 81 mg EC tablet Take 81 mg by mouth daily. Instructed to take 01/18-01/21/13 ??? FERROUS FUMARATE (IRON ORAL) Take by mouth. ??? HYDROmorphone (DILAUDID) 2 mg tablet Take 1-2 Tabs by mouth every 3 hours. Earliest Fill Date: 01/02/14 60 Tab 0 ??? hydrOXYzine (ATARAX) 10 mg tablet Take 1 Tab by mouth 3 times daily as needed for Itching. 20 Tab 0 ??? lisinopril-hydrochlorothiazide (PRINZIDE, ZESTORETIC) 20-12.5 mg per tablet Take 1 Tab by mouthdaily. ??? Multivitamins with Minerals Tab Take 1 Tab by mouth daily. ??? pantoprazole (PROTONIX) 40 mg tablet Take 40 mg by mouth at bedtime. Current Facility-Administered Medications Medication Route Frequency ??? fentaNYL citrate (PF) 50 mcg/mL injection 100-250 mcg intravenous Once PRN ??? lactated ringers (LR) infusion intravenous CONTINUOUS ??? midazolam (PF) (VERSED) 1 mg/mL injection 1-10 mg intravenous Once PRN Past Medical History: Past Medical History Diagnosis Date ??? Hypertension ??? FUENTES (dyspnea on exertion) ??? Chest heaviness ??? Abnormal stress test ??? Acid reflux ??? Snores ??? Anemia ??? Colon polyp Social History: Past Surgical History Procedure Laterality Date ??? Shoulder surgery History Substance Use Topics ??? Smoking status: Former Smoker Quit date: 01/03/1968 ??? Smokeless tobacco: Never Used ??? Alcohol Use: 0.6 oz/week 1 Glasses of wine per week Comment: 1 glass nightly of Red wine Family History: Family History Problem Relation Age of Onset ??? Heart Attack Brother Review of Systems as pertinent: Physical Exam Vital Signs: BP 135/78 Temp(Src) 36.1 ??C (97 ??F) (Tympanic) Resp 16 Ht 172.7 cm (68) Wt 81.647 kg (180 lb) BMI 27.38 kg/m2 SpO2 97% Heart Examination: Cardiac Regularity: Regular Respiratory Examination: Respiratory Pattern: Regular Breath Sounds Right: Clear Breath Sounds Left: Clear Abdominal Examination: Soft, non-tender, bowel sounds normal, no masses, no organomegaly Additional physical exam related to the proposed procedure, patient activity, disease state and treatment as pertinent: Assessment Previous complications with sedation or anesthesia?: No Airway Concerns: None Anesthesia Classification: ASA 2 Plan: Proceed with sedation for procedure Fasting Time: Time of last liquid intake: 0600 Date of Last Liquid Intake: 12/15/14 Time of last solid intake: 1999 Date of last solid intake: 12/13/14 Patient Appropriate Candidate for Planned Sedation?: Yes Darek Collazo MD 12/15/2014 8:04 documented in this encounter Plan of Treatment Not on file documented as of this encounter Procedures Procedure Name Priority Date/Time Associated Diagnosis Comments PROCEDURE REPORTS - SCANNED 12/16/2014 0:35 EST documented in this encounter Results * PROCEDURE REPORTS - SCANNED (12/16/2014 0:35 EST) 12/16/2014 0:35 EST us Scan 2 Water Conservationist PROCEDURE/MINOR SURGICAL OR DERABLES Final Result documented in this encounter Visit Diagnoses Not on filedocumented in this encounter Administered Medications Inactive Administered Medications - up to 3 most recent administrations Medication Order MAR Action Action Date Dose Rate Site fentaNYL citrate (PF) 50 mcg/mL injection 100-250 mcg 100-250 mcg, intravenous, ONCE PRN, 1 dose, Starting on Mon12/15/14 at 0724, Until Mon12/15/14 at 0817, Other, sedation, Routine, Intraprocedure Given 12/15/2014 8:17 EST 50 mcg lactated ringers (LR) infusion 30 mL/hr, intravenous, CONTINUOUS, Starting on Mon12/15/14 at 0745, Until Mon12/15/14 at 1218, Routine, Preprocedure New Bag 12/15/2014 7:50 EST 30 mL/hr 30 mL/hr midazolam (PF) (VERSED) 1 mg/mL injection 1-10 mg 1-10 mg, intravenous, ONCE PRN, 1 dose, Starting on Mon12/15/14 at 0724, Until Mon12/15/14 at 0817, Sedation, Routine, Intraprocedure Given 12/15/2014 8:17 EST 2 mg documented in this encounter Orders Transfer Count Last Ordered Date First Orde red Date NOTIFY PPS OF DISCHARGE COMPLETE 1 12/16/19 15 Discharge Count Last Ordered Date First Orde red Date DISCHARGE PATIENT 1 12/15/2014 documented in this encounter Care Teams Senior Digital Designer Relationship Specialty Start Date End Date Darnell Taylor MD [address] [place] [id number] PCP - General 03/02/12 07/29/19 documented as of this encounter
--- OUTSIDE RECORDS SUMMARY | 2024-11-26 13:59 | XMS_ITS | Encounter Summary ---
Author Organization [facility] Address [address] [place] [address] Care Team Providers Care Compliance Lead Name Role Phone Darnell Taylor MD Primary Care Provider Reason for Visit * Reason Comments Pain * Consult, Test and Treat (Routine) - Closed Specialty Diagnoses / Procedures Referred By Nelia sanford Referred To Contact Orthopedic Surgery Diagnoses Left shoulder pain Myra Gonzalez PA [address] [place] [address] Phone: tel: fax: [facility] Orthopedic Surgery - [address] [place] [address] Phone: tel: fax: Referral ID Status Reason Start Date Expiration Date Visits Re quested Visits Authorized [id number] Closed 1 1 Encounter Details Date Type Department Care Team (Late st Contact Info) Description 09/18/2019 10:[address] [facility] Orthopedic Surgery - [address] [place] [address] Marie Wyman PA-C [address] [place] [phone] Acute pain of left shoulder (Primary Dx) Social History Tobacco Use Types [...] - Inhaled Oxygen Concentration - - Weight 83.9 kg (185 lb) 09/18/2019 1037 EST Height 172.7 cm (5' 7.99) 09/18/2019 1037 EST Body Mass Index 28.14 09/18/2019 1037 EST documented in this encounter Ordered Prescriptions Prescription Sig Dispense Quantity Refills Last Filled Start Date End Date DIAZepam (VALIUM) 5 mg tablet Take 1 Tab by mouth once for 1 dose. Repeat PRN Daily Max: 10 mg 2 Tab 09/18/2019 01/13/2020 documented in this encounter Progress Notes * Marie Wyman PA - 09/18/2019 1045 EST Patient ID: Barrett Salvador is a 73 y.o. male. Chief Complaint: Chief Complaint Patient presents with ??? Left Shoulder - Pain HPI: This is a 73 y.o. ambidextrous male presents to the office after work injury that occurred on August 27, 2019, 22 days ago. 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 To maneuver the brake, he must reach out and around the steering wheel. He was applying the brake on August 27, when he felt a pop and immediate pain in the left arm. Since then, he has not been able to raise the arm above shoulder height. He reports a tremendous amount of pain. Patient has not used NSAIDs on a regular basis. He has been off of work since August 28. He has physical therapy scheduled to begin on Monday. He has not had recent surgery or injection. He denies neurovascular symptoms. On 01/02/2014, patient underwent left shoulder arthroscopic supraspinatus repair, subacromial decompression, distal clavicular excision by Dr. Howell. 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 Following this procedure, patient recovered well, maintained full range of motion, and had no pain. Patient sees a chiropractor for neck pain. He also reports an injury to the right shoulder decades ago, but has very little pain. Quality of pain: dull aching, sharp pain Duration of pain: 22 days Alleviating factors: rest Aggravating factors: reaching overhead, use of arm ROS: ROS has been reviewed by and documented by my medical office supervisor in the chart. I have reviewed thesefindings. Past Medical History: Diagnosis Date ??? Abnormal stress test ??? Acid reflux ??? Anemia ??? 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 Bucket handle tear of medial meniscus of knee 08/04/2015 ??? Chest heaviness ??? Colon polyp ??? FUENTES (dyspnea on exertion) ??? Hypertension ??? Impingement syndrome of left shoulder 11/04/2013 ??? Osteoarthritis of knee 03/08/2016 ??? Sleep apnea ??? Snores ??? Tear of left supraspinatus tendon 11/04/2013 Past Surgical History: Procedure Laterality Date ??? SHOULDER SURGERY Family History Problem Relation Age of Onset ??? Heart Attack Brother Current Outpatient Medications: ??? aspirin 81 mg EC tablet, Take 81 mg by mouth at bedtime. Reported on 10/25/2016, Disp: , Rfl: ??? DIAZepam (VALIUM) 5 mg tablet, Take 1 Tab by mouth once for 1 dose. Repeat PRN Daily Max: 10 mg, Disp: 2 Tab, Rfl: 0 ??? FERROUS FUMARATE (IRON ORAL), Take by mouth at bedtime. Reported on 10/25/2016, Disp: , Rfl: ??? HYDROmorphone (DILAUDID) 2 mg tablet, Take 1-2 Tabs by mouth every 3 hours as needed for Pain Daily Max: 32 mg (Patient not taking: Reported on 10/25/2016), Disp: 30 Tab, Rfl: 0 ??? Multivitamins with Minerals Tab, Take 1 Tab by mouth daily. Reported on 10/25/2016, Disp: , Rfl: ??? pantoprazole (PROTONIX) 40 mg tablet, Take 40 mg by mouth at bedtime. Reported on 10/25/2016, Disp: , Rfl: Allergies Allergen Reactions ??? Coconut Swelling of throat ??? Lipitor [Atorvastatin] Muscle Aches Muscle weakness Physical Exam: Ht 172.7 cm (67.99) Wt 83.9 kg (185 lb) BMI 28.14 kg/m?? Exam of the left shoulder: AROM: Forward elevation 60??, Abduction in the scapular plane 60??, external rotation at 0?? abduction 10??, internal rotation sacrum vs beltline on the contralateral shoulder. PROM: Forward flexion 160?? with pain, Abduction in the scapular plane 160?? with pain. Unable to perform empty can, + Hawkin's impingement, unable to perform Rome's, 3/5 supraspinatus strength, 3/5 infraspinatus strengthen, 3/5 subscapularis strength, 5-/5 biceps tendon strength. - speed's.- sulcus sign. NVI+ Full and non-irritable right shoulder range of motion with exception of internal rotation to beltline. Scars around the shoulder. Xrays that were obtained today and independently visualized by me: Neutral, Grashey, axillary, outlet views of the left shoulder: Moderate glenohumeral joint arthritis. Evidence of previous distal clavicular excision with calcification in the AC joint. Cephalizationof the humeral head relative to the glenoid. No fracture. Assessment: 1. Left shoulder pain, 22 days following injury, likely rotator cuff tear, status post left shoulder arthroscopic supraspinatus repair, subacromial decompression, distal clavicular excision by Dr. Howell in 2013. 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 Patient should attend physical therapy for passive range of motion to avoid stiffness. 2. Remain off of work. 3. MRI of the left shoulder to evaluate for rotator cuff tear. 4. Rx for valium for MRI 5. I will phone the patient after this study is done to direct him to follow-up with Dr. Howell if appropriate. 6. I spent a total of 30 minutes in [id number] time with this patient today and 20 minutes of that time was spent counseling the patient on the risks and treatment options for the above diagnosis. I was directly supervised by Dr. Romero, who was in the suite and immediately available for the entire length of the service that was provided. Please note: This note was transcribed using voice recognition software. Because of this technology, there are often unintended grammatical, spelling, and other lumber racker errors. Please disregardthese errors. * Rita Smith MA - 09/18/2019 1045 EST REVIEW OF SYSTEMS: Yes No Yes No [...] Changes x Rash x Balance Issues x documented in this encounter Plan of Treatment Not on file documented as of this encounter Visit Diagnoses Diagnosis Acute pain of left shoulder- Primary documented in this encounter Care Teams Compliance Lead Relationship Specialty Start Date End Date Darnell Taylor MD PCP - General 07/30/19 01/08/20 documented as of this encounter
--- OUTSIDE RECORDS SUMMARY | 2024-11-26 13:59 | XMS_ITS | Encounter Summary ---
Author Organization [facility] Address [address] [place] [address] Care Team Providers Care Transcription Manager Name Role Phone Darnell Taylor MD Primary Care Provider [phone] Reason for Visit * Reason Onset Date Comments Advice Only 12/20/2019 Encounter Details Date Type Department Care Team (Late st Contact Info) Description 12/20/2019 Telephone [facility] Orthopedic Surgery - [facility] [address] [place] [address] Marie Wyman PA-C [address] [place] [address] Advice Only Social History Tobacco Use Types Packs/Day Years [...] * Telephone Encounter - Melina Ramos - 12/26/2019 0926 EDT Called patient and rescheduled to 01/[address] reese at 830 am, he was pleased on a waitlist for sooner with dr reese * Telephone Encounter - Marie Wyman PA-C - 12/25/2019 1442 EDT I received the paperwork. I spoke with the patient, he reports that he had roughly 2 weeks of relief from the injection, but pain is returning. I do not feel as though the patient is safe to return to work. 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 I will ask the front office to cancel his appointment on the with me, reschedule with Dr. Romero, as that is what recommended. See my previous notes. * Telephone Encounter - Melina Ramos - 12/20/2019 1238 EST Nallely from [employer] is calling stating that this patient had an injection in November. She states that the employer has an offer for light duty. 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 She is faxing over a request in writing for this Please advise documented in this encounter Plan of Treatment Not on file documented as of this encounter Visit Diagnoses Not on filedocumented in this encounter Care Teams Transcription Manager Relationship Specialty Start Date End Date Darnell Taylor MD PCP - General 07/30/19 01/08/20 documented as of this encounter
--- OUTSIDE RECORDS SUMMARY | 2024-11-26 13:59 | XMS_ITS | Encounter Summary ---
Author Organization [facility] Address [address] [place] [address] Care Team Providers Care Parish Worker Name Role Phone Darnell Taylor MD Primary Care Provider [phone] Encounter Details Date Type Department Care Team (Latest Contact Info) Description 06/04/2015 10:37 EDT - 06/04/2015 10:38 EDT Hospital Encounter [facility] [address] [place] [address] Darnell Taylor MD [address] [place] [id number] Discharge Disposition: Home or Self Care Social [...] on filedocumented in this encounter Care Teams Parish Worker Relationship Specialty Start Date End Date Darnell Taylor MD [address] [place] [address] PCP - General 03/02/12 07/29/19 documented as of this encounter
--- OUTSIDE RECORDS SUMMARY | 2024-11-26 13:59 | XMS_ITS | Encounter Summary ---
Author Organization [facility] Address [address] [place] [address] Care Team Providers Care Auto Machinist Name Role Phone Lasha Angelo MD Primary Care Provider [phone] Encounter Details Date Type Department Care Team (Late st Contact Info) Description 04/15/2020 Prep for Procedure [facility] Orthopedic Surgery - [address] [place] [address] Murtaza Negro, [address] [place] [address] Social History Tobacco Use Types Packs/Day Years [...] documented as of this encounter Care Teams Auto Machinist Relationship Specialty Start Date End Date Lasha Angelo MD PCP - General Family Medicine - Primary Care 01/09/20 06/23/21 documented as of this encounter
--- OUTSIDE RECORDS SUMMARY | 2024-11-26 13:59 | XMS_ITS | Encounter Summary ---
Author Organization [facility] Address [address] [place] [address] Care Team Providers Care Car Unloader Name Role Phone Darnell Taylor MD Primary Care Provider [phone] Reason for Visit * Reason Comments Laceration Struck left [facility] fing er with table games shift manager knife 1 hours ago. sensation and ROM intact. Encounter Details Date Type Department Care Team (Late st Contact Info) Description 12/09/2018 21:12 EST - 12/10/2018 0:42 EST Emergency [facility] Emergency Department - [address] [place] [address] [place] [address] Dago Cazares [place] [place] [id number] Emergency, MD Lilliam Laceration of finger of left hand without foreign body without damage to nail, unspecified finger, initial encounter (Primary Dx) Discharge Disposition: Home or Self Care Social [...] Sign Reading Time Taken Comments Blood Pressure 138/79 12/10/2018 004 EST Pulse 78 12/10/2018 004 EST Temperature 36.8 ??C (98.2 ??F) 12/10/2018 004 EST Respiratory Rate 12 12/10/201840 EST Oxygen Saturation 96% 12/10/2018 004 EST Inhaled Oxygen Concentration - - Weight - - Height - - Body Mass Index - - documented in this encounter Discharge Diagnoses Diagnosis S61.213A Laceration without foreign body of left middle finger without damage to nail, initial encounter-S61.213A[ICD-10-CM] W26.0XXA Contact with knife, initial encounter-W26.0XXA[ICD-10-CM] Y93.G9 Activity, other involving cooking and grilling-Y93.G9[ICD-10-CM] Z23 Encounter for immunization-Z23[ICD-10-CM] R05 Cough-R05[ICD-10-CM] I10 Essential (primary) hypertension-I10[ICD-10-CM] Z87.891 Personal history of nicotine dependence-Z87.891[ICD-10-CM] Z79.82 terminal operator (current) use of aspirin-Z79.82[ICD-10-CM] documented in this encounter Discharge Instructions * Attachments The following attachments cannot be sent through Care Everywhere. * LACERATIONS: STITCHES (OCCITAN) documented in this encounter Medications at Time [...] Departure Means Destination Home or Self Care Walk-out Home documented in this encounter ED Notes * Sunshine Cates, KIRSTY - 12/10/2018 0040 EST Bacitracin and band aid placed over sutures, instructions given, all questions and concerns addressed. Wheelchair offered, pt declines. Ambulatory with steady gait to lobby. * Sunshine Cates RN - 12/09/2018 2225 EST Pt presents to ED with c/o laceration to left posterior third digit. Pt states I was using a table games shift manager knife to make dinner and I cut myself. Pt also requesting evaluation for lungs, states I havebeen on an antibiotic for a week and it doesn't seem to be getting better. Reports cough and congestion, states I've been getting up brown stuff. No other complaints. Lungs sounds diminished in bases, no cough on this nurse's assessment. * Dago Cazares MD - 12/09/2018 2217 ESTAssociated Order(s): Laceration This patient received an evaluation and medical screening exam for emergent medical conditions at the [facility] on 12/10/2018 Scribe attestation: This documentation is recorded by Martina Vazquez acting as Scribe under the direction and presence of Dago Cazares MD. Dago Cazares MD: I personally performed the services recorded by the scribe in my presence. I confirm the scribe's documentation has been reviewed by me to accurately and completely record my work, treatment, procedures, and medical decision making. VICKI Salvador is a 72 y.o. male with PMH including pneumonia, OA, HTN, FUENTES, and anemia who presents to the ED for a left middle finger laceration. The patient was preparing dinner tonight when he was about to cut some ingredients. His knife slipped and cut his finger. The knife was clean. Patient denies any other injuries. Patient is not sure if his tetanus is UTD. The patient was recently put on an antibiotic due to chance of pneumonia and bronchitis. Patient still has cold-like symptomsincluding rhinorrhea, productive cough, and SOB. He has been taking Nyquil to manage these symptoms. Patient denies history of DM or tobacco use. Patient denies chest pain, fever, or sore throat. History was provided by: The patient, his medical records. Patient's pertinent PMH, FH, SH were reviewed and updated PRN. ROS A 10-point review of systems was performed and was negative with the exception of those stated as positive in the HPI. Pertinent negatives are also detailed in the HPI. Physical Exam Nursing notes and vital signs were reviewed. Constitutional: Well appearing and in no acute distress Head: Atraumatic, normocephalic Eyes: Conjunctiva normal Mouth: Uvula midline, mild erythema Heart: RRR Lungs: Clear to auscultation bilaterally, no respiratory distress Skin: No overt rashes on exposed skin Extremities:left third digit with a v-shaped laceration to the posterior aspect, flexion and extension intact Neuro: Alert, intact cognition, normal speech Psych: Behavior is appropriate and cooperative Laboratory Results Labs Reviewed - No data to display Imaging Results CHEST PA AND LATERAL (In process) HAND 3 OR MORE VIEWS (Preliminary result) Result time 12/09/18 21:54:38 Preliminary result Narrative: PRELIMINARY RESIDENT REPORT HAND 3 OR MORE VIEWS 12/09/2018 9:43 PM History: laceration Comparison: None Technique: PA, oblique, and lateral views of the left hand Findings: No fractures identified. Bones are well aligned. No foreign body is seen. Mild swelling is seen in the third phalanx. Mild interphalangeal osteoarthrosis is noted. Data Interpretation CXR negative Finger XR negative Procedures Laceration Date/Time: 12/09/2018 22:28 Performed by: Dago Cazares MD Authorized by: Dago Cazares MD Body area: upper extremity Location details: left long finger Laceration length: 3 cm Anesthesia: digital block Anesthesia: Local Anesthetic: lidocaine 1% without epinephrine ( 6 cc) Irrigation solution: saline Skin closure: 5-0 nylon Number of sutures: 7 Technique: simple Patient tolerance: Patient tolerated the procedure well with no immediate complications Medical Decision Making/ED course Male with finger laceration via clean knife. Unknown last tetanus. Will update here. Also reports cough not better after recently diagnoses of possible bronchitis. Plan for chest x-ray, digital block, wound irrigation and repair. Here for finger laceration which was repaired. Tetanus updated. Because of cough, chest x-ray also ordered. Digital block preformed with 6 cc of 1% lidocaine without epinephrine. Small amount of local used as well. Repaired with 7x 5-0 nylon. CXR negative Patient was discharged to home. Prior to discharge usual and customary precautions were reviewed with the patient and/or family including follow-up instructions and reasons to return to the EmergencyDepartment if condition worsens, does not improve as expected, or other new concerns arise. Clinical Impression Final diagnoses: Laceration of finger of left hand without foreign body without damage to nail, unspecified finger, initial encounter Disposition Disposition decisions were made weighing risks and benefits of hospitalization vs. outpatient treatment, the risk for further decompensation, and the patient???s wishes. - If discharged: the patient was stable, improved, or requested discharge. Prior to discharge my usual and customary return precautions were reviewed with the patient and/or family. - If admitted: the patient???s condition was severe enough to require additional inpatient evaluation and treatment, or the patient was at risk of sudden decompensation. documented in this encounter Plan of Treatment Not on file documented as of this encounter Procedures Procedure Name Priority Date/Time Associated Diagnosis Comments CHEST PA AND LATERAL STAT 12/10/2018 0:14 EST LACERATION REPAIR Routine 12/09/2018 22: 17 EST HAND 3 OR MORE VIEWS STAT 12/09/2018 21:43 EST documented in this encounter Results * CHEST PA AND LATERAL (12/10/2018 0:14 EST) Anatomical Region Laterality Modality Other 12/10/2018 0:14 EST 12/10/2018 8:23 EST Narrative 12/10/2018 8:23 EST CHEST 2 VIEWS ??12/10/2018 12:14 AM Clinical History/Comments: cough Comparison: Chest radiograph January 03, 2013. Technique: Frontal and lateral views of the chest were performed. Findings: Soft tissues/ Bones: ??A surgical anchor projects over the right humeral head. Cardiac and mediastinal contours: Within normal limits Lungs: Lungs are clear. Pulmonary vascularity is normal. ?? Pleura/diaphragms: No pleural effusion or pneumothorax. Impression: No significant abnormality I have personally reviewed the images and the above interpretation and agree with the findings. Procedure Note Gonzalez Borthers MD - 12/10/2018 CHEST 2 VIEWS 12/10/2018 12:14 AM Clinical History/Comments: cough Comparison: Chest radiograph January 03, 2013. Technique: Frontal and lateral views of the chest were performed. Findings: Soft tissues/ Bones: A surgical anchor projects over the right humeral head. Cardiac and mediastinal contours: Within normal limits Lungs: Lungs are clear. Pulmonary vascularity is normal. Pleura/diaphragms: No pleural effusion or pneumothorax. Impression: No significant abnormality I have personally reviewed the images and the above interpretation and agree with the findings. Dago Cazares MD IMG DIAGNOSTIC IMAGING PSYCHIATRIC Final Result * Laceration (12/09/2018 22:17 EST) Narrative [facility] EKG - 12/09/2018 22:17 EST Dago Cazares MD ? 12/12/2018 ??4:46 Laceration Date/Time: 12/09/2018 22:28 Performed by: Dago Cazares MD Authorized by: Dago Cazares MD Body area: upper extremity Location details: left long finger Laceration length: 3 cm Anesthesia: digital block Anesthesia: Local Anesthetic: lidocaine 1% without epinephrine ( 6 cc) Irrigation solution: saline Skin closure: 5-0 nylon Number of sutures: 7 Technique: simple Patient tolerance: Patient tolerated the procedure well with no immediate complications us Dago Cazares MD PROCEDURE/MINOR SURGICAL OR DERABLES Final Result [facility] EKG * HAND 3 OR MORE VIEWS (12/09/2018 21:43 EST) Anatomical Region Laterality Modality Other 12/09/2018 21:4 3 EST 12/10/2018 9:39 EST Narrative 12/10/2018 9:39 EST HAND 3 OR MORE VIEWS ??12/09/2018 9:43 PM History: ?? laceration Comparison: None Technique: PA, oblique, and lateral views of the left hand Findings: No fractures identified. Bones are well aligned. No foreign body is seen. Mild swelling is seen in the third phalanx. Mild interphalangeal osteoarthrosis is noted. Apparent increase in AP diameter of the radial metaphyses is projectional. I have personally reviewed the images and the above interpretation and agree with the findings. Procedure Note Titi Hassan MD - 12/10/2018 HAND 3 OR MORE VIEWS 12/09/2018 9:43 PM History: laceration Comparison: None Technique: PA, oblique, and lateral views of the left hand Findings: No fractures identified. Bones are well aligned. No foreign body is seen. Mild swelling is seen in the third phalanx. Mild interphalangeal osteoarthrosis is noted. Apparent increase in AP diameter of the radial metaphyses is projectional. I have personally reviewed the images and the above interpretation and agree with the findings. us Jcarlos Santiago MD IMG DIAGNOSTIC IMAGIN G ORDERABLES Final Result documented in this encounter Visit Diagnoses Diagnosis Laceration of finger of left hand without foreign body without damage to nail, unspecified finger, initial encounter- Primary documented in this encounter Care Teams Car Unloader Relationship Specialty Start Date End Date Darnell Taylor MD [address] [place] [id number] PCP - General 03/02/12 07/29/19 documented as of this encounter
--- OUTSIDE RECORDS SUMMARY | 2024-11-26 13:59 | XMS_ITS | Encounter Summary ---
Author Organization [facility] Address [address] [place] [address] Care Team Providers Care Dermatological Surgeon Name Role Phone Darnell Taylor MD Primary Care Provider [phone] Encounter Details Date Type Department Care Team (Latest Contact Info) Description 09/18/2019 10:15 EST - 09/19/2019 23:59 EST Hospital Encounter [facility] [address] [place] [address] Discharge Disposition: Home or Self Care Social [...] Name Priority Date/Time Associated Diagnosis Comments XR SHOULDER LEFT 2 OR MORE VIEWS Routine 09/18/2019 10:48 EST Left shoulder pain, unspecified chronicity documented in this encounter Results * XR SHOULDER LEFT 2 OR MORE VIEWS (09/18/2019 10:48 EST) Anatomical Region Laterality Modality Left Computed Radiogr aphy 09/18/2019 11:0 9 EST Narrative 09/18/2019 11:09 EST XR SHOULDER LEFT 2 OR MORE VIEWS ??09/18/2019 10:43 AM Clinical History/Comments: left shoulder pain Comparison: Outside radiographs of the left shoulder dated August 30, 2019 Findings: Left shoulder 4 views obtained. The humeral head is located in the scapular glenoid fossa. There is a small chronic appearing osseous fragment along the posterior glenoid margin, likely sequela from remote trauma. Superimposed moderate glenohumeral joint osteoarthrosis is noted as well. There is mild widening of the acromioclavicular joint interval with a couple of small chronic appearing osseous fragments projected over the joint space, findings likely sequela from remote fracture dislocation in this area. Also with superimposed moderate to severe acromioclavicular joint osteoarthrosis noted as well. Chronic appearing enthesopathic related changes are seen along the greater and lesser humeral tuberosities. The bones appear slightly osteopenic. Procedure Note Pacheco Orellana MD - 09/18/2019 XR SHOULDER LEFT 2 OR MORE VIEWS 09/18/2019 10:43 AM Clinical History/Comments: left shoulder pain Comparison: Outside radiographs of the left shoulder dated August Findings: Left shoulder 4 views obtained. The humeral head is located in thescapular glenoid fossa. There is a small chronic appearing osseousfragment along the posterior glenoid margin, likely sequela from remotetrauma. Superimposed moderate glenohumeral joint osteoarthrosis is notedas well. There is mild widening of the acromioclavicular joint intervalwith a couple of small chronic appearing osseous fragments projected overthe joint space, findings likely sequela from remote fracture dislocationin this area. Also with superimposed moderate to severe acromioclavicularjoint osteoarthrosis noted as well. Chronic appearing enthesopathicrelated changes are seen along the greater and lesser humeraltuberosities. The bones appear slightly osteopenic. Marie Wyman PA-C IMG DIAGNOSTIC IMAGING OR DERABLES Final Result documented in this encounter Visit Diagnoses Not on filedocumented in this encounter Care Teams Dermatological Surgeon Relationship Specialty Start Date End Date Darnell Taylor MD PCP - General 07/30/19 01/08/20 documented as of this encounter
--- OUTSIDE RECORDS SUMMARY | 2024-11-26 13:59 | XMS_ITS | Encounter Summary ---
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
--- OUTSIDE RECORDS SUMMARY | 2024-11-26 13:59 | XMS_ITS | Encounter Summary ---
Author Organization [facility] Address [address] [place] [address] Care Team Providers Care Media Coordinator Name Role Phone Darnell Taylor MD Primary Care Provider [phone] Encounter Details Date Type Department Care Team ([facility] st Contact Info) Description 06/04/2015 Results Only [facility] [phone] Darnell Taylor MD [address] [place] [id number] Social History Tobacco Use Types Packs/Day Years [...] Date/Time Associated Diagnosis Comments COMPLETE BLOOD COUNT Routine 06/04/2015 11:07 EDT HEPATIC FUNCTION PANEL (ALB,ALK PHOS,ALT,AST,DBIL,T OT DEY,TOT PROT) Routine 06/04/2015 11:07 EDT documented in this encounter Results * HEPATIC FUNCTION PANEL (ALB,ALK PHOS,ALT,AST,DBIL,TOT EDY,TOT PROT) (06/04/2015 11:07 EDT) Albumin 4.4 3.4 - 4.9 g/dl 06/04/2015 19:22 [facility] Total Protein 7.0 6.3 - 8.2 g/dl 06/04/2015 19:22 [facility] Total Alkaline Phosphatase 71 38 - 126 U/L 06/04/2015 19:22 [facility] ALT 34 21 - 72 U/L 06/04/2015 19:22 [facility] AST 25 15 - 46 U/L 06/04/2015 19:22 [facility] Unconjugated Bilirubin 0.1 0.0 - 1.1 mg/dl 06/04/2015 19:22 [facility] Conjugated Bilirubin 0.0 0.0 - 0.3 mg/dl 06/04/2015 19:22 [facility] Bilirubin, Total 0.6 <1.4 mg/dl 06/04/20 19:22 [facility] BLOOD SPECIMEN / Unknown 06/04/2015 11:07 EDT 06/04/2015 18:30 EDT us Darnell Taylor MD CHEMISTRY & BLOOD GAS ORDERABLE S Final Result Performing Organization Address City/State/[facility] Co de Phone Number [facility] [address] [place] [id number] * (ABNORMAL) HEMAGRAM (06/04/2015 11:07 EDT) WBC 4.75 4.0 - 10.4 K/cmm 06/04/2015 18:59 [facility] RBC 4.54 4.36 - 5.78 M/cmm 06/04/2015 18:59 [facility] Hemoglobin 14.4 13.8 - 17.3 gm/dl 06/04/2015 18:59 [facility] HCT 42.2 39.5 - 50.2 % 06/04/2015 18:59 EDT [facility] MCV 93 81 - 95 fl 06/04/2015 18:59 EDT [facility] MCH 31.7 27.6 - 33.0 pg 06/04/2015 18:59 EDT [facility] MCHC 34.1 32.8 - 36.4 gm/dl 06/04/2015 18:59 EDT [facility] RDW-CV 13.4 11.8 - 14.1 % 06/04/2015 18:59 EDT [facility] RDW-SD 43.3 36.5 - 45.9 fl 06/04/2015 18:59 EDT [facility] PLT 194 141 - 320 K/cmm 06/04/2015 18:59 EDT [facility] MPV 7.4(L) 7.5 - 11.2 fl 06/04/2015 18:59 EDT [facility] BLOOD SPECIMEN / Unknown 06/04/2015 11:07 EDT 06/04/2015 18:30 EDT us Darnell Taylor MD HEMATOLOGY & PF4 ORDERABLES Fin al Result Performing Organization Address City/State/[facility] Co de Phone Number [facility] [address] [place] [address] documented in this encounter Visit Diagnoses Not on filedocumented in this encounter Care Teams Media Coordinator Relationship Specialty Start Date End Date Darnell Taylor MD [address] [place] [address] PCP - General 03/02/12 07/29/19 documented as of this encounter
--- OUTSIDE RECORDS SUMMARY | 2024-11-26 13:59 | XMS_ITS | Encounter Summary ---
Author Organization [facility] Address [address] [place] [address] Care Team Providers Care Teletype Adjuster Name Role Phone Darnell Taylor MD Primary Care Provider [phone] Encounter Details Date Type Department Care Team (Late st Contact Info) Description 11/17/2014 10:26 EST - 11/17/2014 22:00 EST Hospital Encounter [facility] [address] [place] [address] Darnell Taylor MD [address] [place] [address] Yair Vasquez MD [address] [place] [phone] Discharge Disposition: Home or Self Care Social [...] encounter Discharge Diagnoses Diagnosis 285.9 ANEMIA NOS[ICD-9-CM] 401.9 HYPERTENSION NOS[ICD-9-CM] 530.81 ESOPHAGEAL REFLUX[ICD-9-CM] documented in this encounter Medications at Time [...] on filedocumented in this encounter Care Teams Teletype Adjuster Relationship Specialty Start Date End Date Darnell Taylor MD [address] [place] [address] PCP - General 03/02/12 07/29/19 documented as of this encounter
--- OUTSIDE RECORDS SUMMARY | 2024-11-26 13:59 | XMS_ITS | Encounter Summary ---
Author Organization [facility] Address [address] [place] [address] Care Team Providers Care Medical Professionals Name Role Phone Darnell Taylor MD Primary Care Provider [phone] Reason for Visit * Reason Comments Knee Pain right knee pain Encounter Details Date Type Department Care Team (Latest Contact Info) Description 10/25/2016 10:20 EST Office Visit [facility] - [facility] [address] [place] [address] All Rodriguez MD [address] [place] [address] Primary osteoarthritis of right knee (Primary Dx); Neuritis Social History Tobacco Use Types Packs/Day Years [...] - - Weight 79.4 kg (175 lb) 10/25/2016 1026 EST Height 172.7 cm (5' 8) 10/25/2016 1026 EST Body Mass Index 26.61 10/25/2016 1026 EST documented in this encounter Progress Notes * All Rodriguez MD - 10/25/2016 1020 EST Patient presents today with right knee pain. He has Arthroscopic partial medial meniscectomy of bucket-handle tear and gentle debridement medial femoral condyle. on right knee on 08/27/2015 He is still having some lateral sided pain. He has pain when bending down and kneeling. 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 REVIEW OF SYSTEMS: Yes No Yes No [...] Changes x Rash x Balance Issues x Knee motion is excellence strength is good he more has hypersensitivity when he kneels what on whatis likely either the anterior prepatellar bursa or a branch of the inferior patella nerve that is superficial and sensory only have encouraged not to kneel if he has to use padding or folded blanket but to minimize this otherwise he is having minimal symptoms I think is safe for him to work overtime less is any contraindication from other realms or his employer I given a note to document this at his request Encounter Diagnoses Name Primary? Primary osteoarthritis of right knee Yes ??? Neuritis documented in this encounter Plan of Treatment Not on file documented as of this encounter Visit Diagnoses Diagnosis Primary osteoarthritis of right knee- Primary Primary localized osteoarthrosis, lower leg Neuritis Neuralgia, neuritis, and radiculitis, unspecified documented in this encounter Care Teams Medical Professionals Relationship Specialty Start Date End Date Darnell Taylor MD [address] [place] [address] PCP - General 03/02/12 07/29/19 documented as of this encounter
--- OUTSIDE RECORDS SUMMARY | 2024-11-26 13:59 | XMS_ITS | Encounter Summary ---
Author Organization [facility] Address [address] [place] [address] Care Team Providers Care Rim Roller Operator Name Role Phone Lasha Angelo MD Primary Care Provider [phone] Reason for Visit * Reason Onset Date Comments Paperwork request 03/03/2020 Encounter Details Date Type Department Care Team (Late st Contact Info) Description 03/03/2020 Telephone [facility] - [address] [place], [place] [id number] Agusto Howell III, MD [address] [place] [address] Paperwork request Social History Tobacco [...] * Telephone Encounter - Deven Cox - 03/03/[address] burrell * Telephone Encounter - Sun Glez - 03/03/2020 1357 EDT requesting last ov note from Dr. Howell for CLOVIS evaluation. Placed in Deven's box. documented in this encounter Plan of Treatment Not on file documented as of this encounter Visit Diagnoses Not on filedocumented in this encounter Care Teams Rim Roller Operator Relationship Specialty Start Date End Date Lasha Angelo MD PCP - General Family Medicine - Primary Care 01/09/20 06/23/21 documented as of this encounter
--- OUTSIDE RECORDS SUMMARY | 2024-11-26 13:59 | XMS_ITS | Encounter Summary ---
Author Organization [facility] Address [address] [place] [address] Care Team Providers Care Drug Safety Data Management Specialist Name Role Phone Darnell Taylor MD Primary Care Provider [phone] Encounter Details Date Type Department Care Team (Late st Contact Info) Description 11/14/2019 Orders Only [facility] - [facility] [address] [place] [address] Marie Wyman PA-C [address] [place] [address] Social History Tobacco Use Types [...] on filedocumented in this encounter Care Teams Drug Safety Data Management Specialist Relationship Specialty Start Date End Date Darnell Taylor MD PCP - General 07/30/19 01/08/20 documented as of this encounter
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
--- OUTSIDE RECORDS SUMMARY | 2024-11-26 13:59 | XMS_ITS | Encounter Summary ---
Author Organization [facility] Address [address] [place] [address] Care Team Providers Care Supervisor Fleshing Name Role Phone Darnell Taylor MD Primary Care Provider [phone] Encounter Details Date Type Department Care Team (Late st Contact Info) Description 07/04/2018 Results Only Imaging [facility] [phone] [place], [place] [address] [facility] [place] [address] Social History Tobacco Use Types Packs/Day Years [...] Name Priority Date/Time Associated Diagnosis Comments MR CERVICAL SPINE WO CONTRAST 07/04/2018 9:45 EDT documented in this encounter Results * MR CERVICAL SPINE WO CONTRAST (07/04/2018 9:45 EDT) Anatomical Region Laterality Modality Other 07/04/2018 9:45 EDT 07/04/2018 12:05 EDT Narrative 07/04/2018 12:05 EDT MRI cervical spine without contrast HISTORY: Intractable neck pain. TECHNIQUE: MRI cervical spine without contrast. COMPARISON: Cervical spine radiographs 06/01/2018. FINDINGS: There is reversal of lordosis, apex at C4. There is slight stepwise retrolisthesis from C4 to C7. The alignment is otherwise maintained. The vertebral body heights are normal. Scattered endplate marrow degenerative changes are present. Marrow signal characteristics are otherwise unremarkable. The cervical cord demonstrates normal signal intensity. Small effusions is present in the C1-C2 articulations, larger on the right. There is volume loss of the visible brain parenchyma. A subcentimeter pineal region cyst is present. The included intracranial contents are otherwise unremarkable. Minimal mural thickening is seen in the visible portions of the paranasal sinuses and ethmoid air cells. A subcentimeter thyroid nodule is noted (series 501, image 9). C2-C3: No spinal canal or neural foraminal stenosis. C3-C4: There is a small circumferential disc osteophyte complex with slight uncovertebral hypertrophy and mild facet arthropathy on the left. There is mild left neural foraminal stenosis without spinal canal or right neural foraminal stenosis. C4-C5: There is a circumferential disc osteophyte complex with bilateral uncovertebral hypertrophy and mild bilateral facet arthropathy. There is severe left and moderate right neural foraminal stenosis and flattening of the ventral thecal sac with moderate spinal canal stenosis. C5-C6: There is a circumferential disc osteophyte complex with bilateral uncovertebral hypertrophy and mild bilateral facet arthropathy. There is severe left and moderate right neural foraminal stenosis and flattening of the ventral thecal sac with moderate spinal canal stenosis. C6-C7: There is a circumferential disc osteophyte complex with bilateral uncovertebral hypertrophy and mild facet arthropathy on the right. There is moderate bilateral neural foraminal stenosis and flattening of the ventral thecal sac with mild spinal canal stenosis. C7-T1 and T1-T2: No spinal canal or neural foraminal stenosis. IMPRESSION: Multilevel discogenic and facet degenerative changes, detailed above, notable for severe neural foraminal stenosis on the left at C4-C5 and C5-C6 and moderate spinal canal stenosis at both levels. No abnormal cervical cord signal. Procedure Note Edgar Leigh MD - 07/04/2018 MRI cervical spine without contrast HISTORY: Intractable neck pain. TECHNIQUE: MRI cervical spine without contrast. COMPARISON: Cervical spine radiographs 06/01/2018. FINDINGS: There is reversal of lordosis, apex at C4. There is slight stepwise retrolisthesis from C4 to C7. The alignment is otherwise maintained. The vertebral body heights are normal. Scattered endplate marrow degenerative changes are present. Marrow signal characteristics are otherwise unremarkable. The cervical cord demonstrates normal signal intensity. Small effusions is present in the C1-C2 articulations, larger on the right. There is volume loss of the visible brain parenchyma. A subcentimeter pineal region cyst is present. The included intracranial contents are otherwise unremarkable. Minimal mural thickening is seen in the visible portions of the paranasal sinuses and ethmoid air cells. A subcentimeter thyroid nodule is noted (series 501, image 9). C2-C3: No spinal canal or neural foraminal stenosis. C3-C4: There is a small circumferential disc osteophyte complex with slight uncovertebral hypertrophy and mild facet arthropathy on the left. There is mild left neural foraminal stenosis without spinal canal or right neural foraminal stenosis. C4-C5: There is a circumferential disc osteophyte complex with bilateral uncovertebral hypertrophy and mild bilateral facet arthropathy. There is severe left and moderate right neural foraminal stenosis and flattening of the ventral thecal sac with moderate spinal canal stenosis. C5-C6: There is a circumferential disc osteophyte complex with bilateral uncovertebral hypertrophy and mild bilateral facet arthropathy. There is severe left and moderate right neural foraminal stenosis and flattening of the ventral thecal sac with moderate spinal canal stenosis. C6-C7: There is a circumferential disc osteophyte complex with bilateral uncovertebral hypertrophy and mild facet arthropathy on the right. There is moderate bilateral neural foraminal stenosis and flattening of the ventral thecal sac with mild spinal canal stenosis. C7-T1 and T1-T2: No spinal canal or neural foraminal stenosis. IMPRESSION: Multilevel discogenic and facet degenerative changes, detailed above, notable for severe neural foraminal stenosis on the left at C4-C5 and C5-C6 and moderate spinal canal stenosis at both levels. No abnormal cervical cord signal. us [place] [facility] MRI ORDERABLES Final Re sult documented in this encounter Visit Diagnoses Not on filedocumented in this encounter Care Teams Supervisor Fleshing Relationship Specialty Start Date End Date Darnell Taylor MD [address] [place] [id number] PCP - General 03/02/12 07/29/19 documented as of this encounter
--- OUTSIDE RECORDS SUMMARY | 2024-11-26 13:59 | XMS_ITS | Encounter Summary ---
Author Organization [facility] Address [address] [place] [address] Care Team Providers Care Supervisor Mail Carriers Name Role Phone Darnell Taylor MD Primary Care Provider [phone] Encounter Details Date Type Department Care Team (Late st Contact Info) Description 09/18/2019 Orders Only [facility] Orthopedic Surgery - [facility] [address] [place] [address] Marie Wyman PA-C [address] [place] [address] Left shoulder pain, unspecified chronicity (Primary Dx) Social History Tobacco Use Types [...] The bones appear slightly osteopenic. Procedure Note LachPacheco MD - 09/18/2019 XR SHOULDER LEFT 2 [...] bones appear slightly osteopenic. Marie Wyman PA-C [facility] Final Result documented in this encounter Visit Diagnoses Diagnosis Left shoulder pain, unspecified chronicity- Primary documented in this encounter Care Teams Supervisor Mail Carriers Relationship Specialty Start Date End Date Darnell Taylor MD PCP - General 07/30/19 01/08/20 documented as of this encounter
--- OUTSIDE RECORDS SUMMARY | 2024-11-26 13:59 | XMS_ITS | Encounter Summary ---
Author Organization [facility] Address [address] [place] [address] Care Team Providers Care Inspector Brake Lining Name Role Phone Lasha Angelo MD Primary Care Provider [phone] Reason for Visit * Reason Onset Date Comments Other 01/13/2020 WORKERS COMP PAP ERS Encounter Details Date Type Department Care Team (Late st Contact Info) Description 01/13/2020 Telephone [facility] Orth[facility] Surgery - [facility] Tico Patel [address] [place] [address] Agusto Howell III, MD [address] [place] [address] Other (WORKERS COMP PAPERS) Social History Tobacco Use Types Packs/Day [...] encounter Miscellaneous Notes * Telephone Encounter - Fanny Castaneda - 01/13/2020 [id number] EDT Rec'd request for work capabilities form to be completed, form attached., placed in workers comp box. documented in this encounter Plan of Treatment Not on file documented as of this encounter Visit Diagnoses Not on filedocumented in this encounter Care Teams Inspector Brake Lining Relationship Specialty Start Date End Date Lasha Angelo MD PCP - General Family Medicine - Primary Care 01/09/20 06/23/21 documented as of this encounter
--- OUTSIDE RECORDS SUMMARY | 2024-11-26 14:00 | XMS_ITS | Encounter Summary ---
Author Organization [facility] Address [address] [place] [address] Care Team Providers Care Enterprise Systems Architect Name Role Phone Darnell Taylor MD Primary Care Provider [phone] Encounter Details Date Type Department Care Team (Latest Contact Info) Description 01/02/2014 9:21 EDT - 01/02/2014 18:37 EDT Hospital Encounter [facility] Perioperative Services - [address] [address] Agusto Howell III, MD [address] [place] [phone] Disorders of bursae and tendons in shoulder region, unspecified (Primary Dx); Supraspinatus (muscle) (tendon) sprain; Primary localized osteoarthrosis, shoulder region Discharge Disposition: Home or Self Care Social [...] Sign Reading Time Taken Comments Blood Pressure 145/72 01/02/2014 1815 EDT Pulse - - Temperature 36.8 ??C (98.2 ??F) 01/02/2014 1800 EDT Respiratory Rate 13 01/02/2014 181 EDT Oxygen Saturation 95% 01/02/2014 1815 EDT Inhaled Oxygen Concentration - - Weight 86.2 kg (190 lb) 12/16/2013 0913 EST Height 172.7 cm (5' 8) 12/16/2013 09 EST Body Mass Index 28.89 12/16/2013 09 EST documented in this encounter Discharge Instructions * Discharge Instructions* Yumiko Harmon PA - 01/02/2014 14:43 EDT Images from the original note were not included. [facility] SHOULDER ARTHROSCOPY POSTOPERATIVE INSTRUCTIONS Your arthroscopy results included: Rotator Cuff injury: Full thickness tear, Arthritis: Glenohumeral Joint and Acromioclavicular (AC) joint and Bursitis Treatment included: Rotator cuff repair, Glenohumeral joint debridement, Subacromial decompression (shaving of bone spurs) and Distal clavicle excision (widening of the AC joint) Dressing Care: Underneath your sling and Cryo/Cuff is a bulky dressing covering your incisions. This should remain in place for 48 hours following surgery. At that point the dressing can be removed. Do not bathe or submerse yourself in water. Dry the incisions carefully and cover with Band-Aids. Some slight drainage is normal. Cryo/Cuff: Continue to use the Cryo/Cuff as [...] writing, etcetera). You should wear the sling when sleeping. Sleeping in a reclinermight be more comfortable. Exercises/Pendulums: These are best done in the shower at first, and are not to be done until afteryour follow up visit approximately 1 week after surgery. Bend forward about 90 degrees at the waist, using your good (non-operative) arm for support and balance. Rock your body in a circular pattern allowing your arm to dangle clockwise then counterclockwise for at least 30 seconds. Try to perform t hese 3 times a day. The motion of your upper body, not your shoulder muscles should move your arm. When finished, put your sling back on. Elbow / Wrist / Hand Range of Motion: When the sling is off in the shower or for pendulums, gently work on elbow range of motion by trying to straighten and flex the elbow. DO NOT FORCE and you may use your good arm for assistance. With your sling on, work on turning [...] for use are on the prescription bottles: The medications that you should use for pain control are: Tylenol, maximum dose 4000 mg in 24 hoursand Dilaudid (hydromorphone) Nausea & Vomiting Medications: You may have been given meds for nausea secondary to the effectsof anesthesia or to treat any nausea induced by your pain medications. The medication which you have been given for nausea is: Atarax (for nausea or itching, will also make pain medications feel stronger) Constipation: Narcotics can lead to constipation; using an oubt-kab-kinjqtz stool softener such as colace may be helpful. Things to Call Your Surgeon About: If the incisions become red, have continuous drainage, smell foul, or if you develop persistent fevers (greater than 100.4 F degrees) vomiting, or diarrhea, shortness of breath or calf pain; call your surgeons office. There is always someone available [phone]. documented in this encounter Medications at Time of Discharge aspirin 81 mg EC tablet Take 81 mg by mouth at bedtime. Reported on 10/25/2016 Multivitamins with Minerals Tab Take 1 Tab by mouth daily. Reported on 10/25/2016 cephALEXin (KEFLEX) 500 mg capsule Take 1 Cap by mouth every 6 hours for 1 day. 4 Cap 0 01/02/2014 01/03/2014 FERROUS FUMARATE (IRON ORAL) Take by mouth [...] Refills Last Filled Start Date End Date hydrOXYzine (ATARAX) 10 mg tablet Take 1 Tab by mouth 3 times daily as needed for Itching. 20 Tab 0 01/02/2014 5 cephALEXin (KEFLEX) 500 mg capsule Take 1 Cap by mouth every 6 hours for 1 day. 4 Cap 0 01/02/2014 4 HYDROmorphone (DILAUDID) 2 mg tablet Take 1-2 Tabs by mouth every 3 hours. Earliest Fill Date: 01/02/14 60 Tab 0 01/02/2014 5 documented in this encounter Discharge Disposition Disposition Code Departure Means Destination Home or Self Care documented in this encounter Progress Notes * Becki Martins RN - 01/02/2014 9594 EDT Pt A&O states pain is tolerable. States I can't believe I woke up here and not at [facility]! * Becki Martins RN - 01/02/2014 1628 EDT Spoke with pt's . She states that pt reacted this way in the past after general anesthesia and she feels it's all an act. She feels the pt acts this way on purpose for attention. * Becki Martins RN - 01/02/2014 1611 EDT Pt admitted to Pacu very sleepy and unarouseable.Responsive to painful stimuli only. Dr. Flores and Dr Dante cox. ZORAIDA @3mm. Pt with previous history of prolonged sedation post general anesthesia. * Leny Kingston RN - 12/16/2013 0912 EST Barrett Salvador has been instructed as follows regarding medication administration for the day of the scheduled procedure. Date of Surgery: 01/02/14 Instructions for Taking Medications Day of Surgery Medication Last Dose Hold DOS Take DOS aspirin 81 mg EC tablet HS FERROUS FUMARATE (IRON ORAL) X lisinopril-hydrochlorothiazide (PRINZIDE, ZESTORETIC) 20-12.5 mg per tablet X Multivitamins with Minerals Tab 12/26/13 pantoprazole (PROTONIX) 40 mg tablet HS documented in this encounter H&P Notes * Yumiko Harmon PA - 12/31/2013 1133 EDT The preoperative history and physical which was performed within 30 days of this procedure has been reviewed and the clinically appropriate elements of the physical examination have been repeated. 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 PROCEDURE: Left shoulder arthroscopic supraspinatus repair, arthroscopic subacromial decompression (anterior inferior acromioplasty and debridement of coracoacromial ligament), arthroscopic distal clavicle excision. SURGEON: Agusto Howell III, MD CHAPLAIN RESIDENT: Yumiko Harmon PA-C (There were no orthopedic residents available to assist with this procedure.) ANESTHESIA: General endotracheal plus local. INDICATIONS: This is a 68-year-old male with persistent left shoulder pain, weakness and disability, which has not responded to a lengthy period of conservative, nonoperative measures. Physical exam as well as MRI findings have suggested a full-thickness and retracted supraspinatus tear along with severe acromioclavicular arthrosis and a type 2 acromion with thickened coracoacromial ligament, likely causing impingement inferiorly. There is also evidence of a long head of the biceps rupture. Having not responded to a lengthy period of conservative, nonoperative measures, he has elected to proceed with surgical intervention. Please refer to the history and physical with addended orthopedic office notes within this chart for further documentation of indications for this procedure. NARRATIVE: The patient was brought to the operating room and placed on the OR table in a supine position where a general endotracheal anesthetic was administered without any complication. Note, this patient did have a history of having a difficult time awaking from anesthesia, so the anesthesia team carefully reviewed all the medications that he might receive and tried to make them as minimally sedative as possible. He did receive Kefzol 2 g within 60 minutes of his skin incision. He also received a preoperative pain protocol including Tylenol, Lyrica, Celebrex and OxyContin, which is standard practice in this institution. Once he was asleep, he was placed in a semi-Richardson position using a TENET table. His head and trunkwere well padded and well secured. All bony prominences were well padded. His neck was carefully kept in neutral position and the head well secured in the headrest, using the foam face mask securely fashioned on his forehead and loosely fashioned around his mandible. The preoperative brief and surgical site identification were accomplished. Venodyne sequential compression stockings had been placed on both of his legs and a warming blanket had been placed on his trunk. Left shoulder examined under anesthesia and found to have full range of motion with no laxity appreciated to load and shift testing anteriorly, inferiorly or posteriorly at 0, 45 or 90 degrees of abduction in the scapular plane. His left shoulder girdle was prepped with ChloraPrep and draped in a sterile fashion with the arm draped freely. A Spider arm support was utilized to support the arm. Using a Route4Me arthroscopic pump set at 50 mmHg, lactated Ringer inflow solution was utilized. A 4.5-mm arthroscope was introduced without difficulty using a dull trocar atraumatically through a standard posterior portal. The glenohumeral joint, superior, middle and inferior glenohumeral ligaments, subscapularis, supraspinatus, infraspinatus, teres minor and biceps tendons were all evaluated arthroscopically. When needed, a separate anterior portal was used through the rotator interval, placed just lateral to the coracoid process and the portal was placed under direct visualization with needle localization. Then 0.25% Marcaine with epinephrine was instilled into the portal prior to placement with an 11-blade scalpel. Care was taken to protect the biceps tendon and subscapularis tendons as well as labrum during the portal placement. A hook probe was used to facilitate the evaluation of the shoulder. The arthroscope was then removed from the glenohumeral joint and placed in the subacromial space where arthroscopic evaluation was done to inspect the bursa. When required, for visualization a limited bursectomy was done with a 4.5-mm shaver and radiofrequency ablation device. A standard posterior portal was used for visualization and the standard anterolateral portal as well as the standard anterior portal was utilized. The anterior portal was the same skin incision which had previously been placed for the anterior rotator interval portal but the dull trocar was reintroduced into the subacromial space at the region of the acromioclavicular joint. The arthroscope was moved around from portal to portal for better visualization. Note that epinephrine was instilled into each 3-liter bag of lactated Ringer inflow solution based upon our standard protocol. Arthroscopic findings revealed the humeral head and glenoid had mild arthrosis. There were no unstable articular cartilage fragments, though, and there was no exposed bone. The subscapularis tendon was intact. The supraspinatus was completely torn and retracted, primarilyretracted posteriorly. The infraspinatus was intact. Teres minor was intact on the articular surfaces. The long head of the biceps was missing. The labrum was intact circumferentially. There was onlya short stump of biceps remaining, which was debrided with a shaver. Hemostasis was maintained withthe radiofrequency device. In the subacromial space, there was noted to be severe bursitis. This was treated with a partial bursectomy using a combination of a Dudley and Nephew Whirlwind device as well as an electroblade shaver coagulation device. A 4.5 mm shaver also was used. There was noted to be a severe type 2, if not type 3 acromion, with a thickened and frayed coracoacromial ligament and severe acromioclavicular arthrosis with a large osteophyte seen inferiorly. There was a full-thickness tear of the supraspinatusviewed in the bursal surface, which was largely retracted posteriorly and medially. The infraspinatus was intact and in fact, the posterior part of the supraspinatus fibers that were torn appeared to be torn medial to the posterior insertion on the posterior greater tuberosity. A traction suture was placed in the supraspinatus using the Dudley and Nephew Truepass suture passer. This was a #2 Ultrabraid. A separate tiny portal was placed anteriorly in the appropriate line of pull to reduce the tendon. This was placed with an incision just through the skin after preemptive analgesia with 0.25% Marcaine. Gentle dissection with a dull obturator was placed up to the humeral head to avoid injury to the axillary nerve. A loop grabber was then used to pull the sutures back outof this area after placed by the Truepass. With traction applied, a Whirlwind radiofrequency devicewas then used to divide subdeltoid adhesions and with this, the tendon could be mobilized back to its anatomic footprint. The greater tuberosity was debrided down to bleeding cortical bone. Two 5.5 mm Healicoil anchors were placed for repair. The anterior one was triple-loaded and the posterior one was double loaded. A passport cannula was placed through an anterolateral portal placed roughly 4 cm below the corner of the acromion using the loop grasper and the Truepass, and these were passed in horizontal mattress fashion with an psychology assistant applying traction to the tendon back to its anatomic position. These were placed from posterior to anterior with the posterior suture anchor limbs placed first and the anterior ones placed second. They were then tightened and tied with standard arthroscopic knot-tying techniques, creating an anatomic repair of the tendon posteriorly and in the mid portion of the tendon. Even after the sutures were tightened and tied, there remained a slight gap anteriorly. This was corrected by taking 2 of the limbs of the anterior part of the medial row, passing one of these limbs through the lateral edge of the superior fibers of the subscapularis and then tying this as a rotator interval closure at roughly 30 degrees of external rotation and slight abduction. This served to pullthe supraspinatus anterior leading edge to the edge of the subscapularis, closing down the rotator interval as well as pulling the tendon out to its anatomic length anterolaterally. Then, selected limbs from the remaining sutures were then passed into a single 4.5 mm footprint anchor placed in the proximal lateral metaphysis, roughly 1.5 cm below the superolateral edge of the greater tuberosity. This was passed in standard fashion using appropriate dilator and tensioning and deploying the footprint anchor, as is standard practice. All extraneous suture limbs were then transected. This was found to create an anatomic repair on the bursal surface, as well as articular surface was very stable to hook probe palpation. It was also stable to range of motion of the shoulder. At this point, the acromion was converted to a type 1 using a 5.5 mm jose a regular sheath and a short sheath. The coracoacromial ligament was debrided and was elevated from the overlying bone to preserve the ligament, while at the same time creating a type 1 acromion via an acromioplasty using theburr with a regular sheath and a short sheath. The latter was used as an end-cutting device to preserve the deltoid attachment site as well as the attachment site of the coracoacromial ligament at the anterior acromion and anterolateral acromion. When this was all cleared out, copious irrigation was utilized to remove any bony fragments. There was a large osteophyte beneath the acromioclavicular joint, which was co- planed with a 5.5 mmburr. There was severe arthrosis noted of that joint. Six mm of distal clavicle was removed from lateral to medial, inferior to superior and anterior to posterior through the anterior rotator interval portal into the AC joint. The periosteum and acromioclavicular ligaments superiorly posteriorly and posteriorly inferiorly were all preserved. Roughly 6mm of distal clavicle was removed. The clavicular facet of the acromion also was removed. Copious irrigation was again utilized. The patient's arthroscopic portals were all repaired with 3-0 Ethilon simple sutures except for themost posterior one. This was used to place the arthroscopic cannula and dull obturator into the glenohumeral joint where 5 mL of 0.5% ropivacaine was delivered for postoperative analgesia. The cannula was then placed in the subacromial space where an additional 15 mL was delivered and then the cannula removed and the posterior portal repaired with 3-0 Ethilon simple sutures. A spinal needle was then placed percutaneously posterior to the clavicle down to the base of the coracoid process. With multiple aspiration attempts, another 10 mL of 0.5% ropivacaine was delivered for a postoperative nerve block at the suprascapular nerve. Four sterile TENS unit leads were applied around the shoulder girdle. Incisions were covered with Adaptic covered by 4 x 4 gauzes and ABD pads held in place with foam tape. He was then placed in a Cryo/Cuff and an UltraSling. He was extubated, transferred to a hospital stretcher and taken to the PACU in stable condition suffering minimal blood loss and no complications. He did receive 1000 mL of lactated Ringer IV fluid intraoperatively. There was no urine output. There were no specimens or cultures sent and no drains left behind. Sponge and needle counts were correct. There were no adverse clinical events to report; however, the Dudley and [employer] Truepass suture passing device was unsuccessful in deploying the suture on several occasions, which did add some time tothe operative procedure. At one point, the needle appeared to be jammed in the device and this was removed from the patient to the back table where the needle clearly was intact but jammed. As an attempt was made to unstick the device, the tip of the needle broke. This was not in the patient when this happened. A new needle was then obtained and used several times outside of the patient to make sure it worked appropriately and then this was used to finish the last several suture passages in thepatient. There were no complications and no adverse clinical events to this patient noted. Unless otherwise noted, there were no complications, no blood loss, no cultures obtained, no specimens removed, and no drains retained. Agusto Howell III, MD 06 10 PM / Agusto Pringle. Dante LOPEZ MD mn Confirmation: [id number] Dictation ID: [id number] * Anesthesia Procedure Notes - CAT OPERATOR, SCAN 2 - 01/02/2014 7269 EDT * OR PreOp - CAT OPERATOR, SCAN 2 - 01/02/2014 1455 EDT * Anesthesia Preprocedure Evaluation - CAT OPERATOR, SCAN 2 - 01/02/2014 1149 EDT * Anesthesia Preprocedure Evaluation - CAT OPERATOR, SCAN 2 - 12/16/2013 1017 EST * Anesthesia Preprocedure Evaluation - CAT OPERATOR, SCAN 2 - 12/16/2013 0957 EST documented in this encounter Miscellaneous Notes * Anesthesia Post-Eval - Jerry Mitchell MD - 01/02/2014 1740 EDT Post Anesthesia Evaluation Note Date of Service: 01/02/2014 Barrett Salvador, a 68 y.o. year old male has received General Anesthesia today. He has been evaluated, assessed and discharged from anesthesia care with stable cardiorespiratory function and easily arousable mental status. The last set of recorded vital signs and pain rating were reviewed: Temp: 36.4 ??C (97.5 ??F) (01/02/14 1645), Heart Rate: 97 BPM (01/02/14 171), BP: 144/82 mmHg (01/02/14 171), Resp: 23 (01/02/141714), SpO2: 100 % (01/02/141714),Numeric Pain Level (Scale 1-10): 4 Barrett Salvador participated in this evaluation unless otherwise noted. His pain, nausea and vomiting have been managed and his body temperature and fluid balance have been restored. Additional monitoring and assessment needs have been addressed. If present, any postoperative events are documented below. JERRY MITCHELL MD 01/02/2014 17:40 * Brief Op Note - Yumiko Harmon PA - 01/02/2014 1139 EDT Brief Post-Op Note Date of Surgery: 01/02/2014 Surgeon: Dr. Howell Assistants: NAHUN Barahona Pre-Op Diagnosis: Left shoulder supraspinatus tear. AC joint arthrosis. Impingement. Post-Op Diagnosis: Same with the addition of Glenohumeral joint arthrosis. Procedure(s): RTC repair, distal clavicle excision, decompression. Findings: See dictated op note Anesthesia Type: General Estimated Blood Loss: Unless otherwise noted, there was no blood loss, specimens removed, cultures obtained, or drains retained. The estimated blood loss was Minimal Fluids: Barrett Salvador received 1600cc of fluid replacement. Specimens/Cultures: None Drains/Packs: None Complications: None Disposition and Condition: Barrett Salvador was sent to PACU in Good condition. NAHUN Barahona 01/02/2014 11:39 documented in this encounter Plan of Treatment Not on file documented as of this encounter Procedures Procedure Name Priority Date/Time Associated Diagnosis Comments ECG REPORT - SCANNED 01/07/2014 11:42 EDT IMPLANT RECORD - SCANNED 01/07/2014 11:42 EDT documented in this encounter Results * ECG REPORT - SCANNED (01/07/2014 11:42 EDT) 01/07/2014 11:4 2 EDT us Scan 2 Machine Adjuster Helper PROCEDURE/MINOR SURGICAL OR DERABLES Final Result * IMPLANT RECORD - SCANNED (01/07/2014 11:42 EDT) 01/07/2014 11:4 2 EDT us Scan 2 Machine Adjuster Helper PROCEDURE/MINOR SURGICAL OR DERABLES Final Result documented in this encounter Visit Diagnoses Diagnosis Disorders of bursae and tendons in shoulder region, unspecified- Primary Disorders of bursae and tendons in shoulder region, unspecified Supraspinatus (muscle) (tendon) sprain Primary localized osteoarthrosis, shoulder region Primary localized osteoarthrosis, shoulder region Supraspinatus (muscle) (tendon) sprain documented in this encounter Administered Medications Inactive Administered Medications - up to 3 most recent administrations Medication Order MAR Action Action Date Dose Rate Site acetaminophen (TYLENOL) tablet 1,000 mg 1,000 mg, oral, PRE-OP ONCE, 1 dose, On Nida 01/02/14 at 1015, Routine, Pre-Op DOS Rx Approved Given 01/02/2014 10:19 EDT 1,000 mg ceFAZolin (ANCEF) syringe 2 g 2 g, intravenous, Administer over 10 Minutes, PRE-OP ONCE, 1 dose, On Nida 01/02/14 at 1015, Routine, Pre-Op DOS Rx Approved Given by Other 01/02/2014 12:06 EDT 2 g celecoxib (CELEBREX) capsule 200 mg 200 mg, oral, PRE-OP ONCE, 1 dose, On Nida 01/02/14 at 1015, Routine, Pre-Op DOS Rx Approved Given 01/02/2014 10:19 EDT 200 mg lactated ringers (LR) infusion at 25 mL/hr, intravenous, CONTINUOUS, Starting on Nida 01/02/14 at 1015, Until Nida 01/02/14 at 2049, Routine, Pre-Op DOS Rx Approved New Bag 01/02/2014 10:17 EDT 25 mL/hr oxyCODONE (OXYCONTIN) CR tablet 10 mg 10 mg, oral, PRE-OP ONCE, 1 dose, On Nida 01/02/14 at 1015, Routine, Pre-Op DOS Rx Approved Given 01/02/2014 10:19 EDT 10 mg oxyCODONE (ROXICODONE) immediate release tablet 5 mg 5 mg, oral, PRN, 2 doses, Starting on Nida 01/02/14 at 1512, Until Nida 01/02/14 at 2049, Pain, x 2 doses, Routine, Recovery (only) Given 01/02/2014 17:31 EDT 5 mg pregabalin (LYRICA) capsule 75 mg 75 mg, oral, PRE-OP ONCE, 1 dose, On Nida 01/02/14 at 1015, Routine, Pre-Op DOS Rx Approved Given 01/02/2014 10:19 EDT 75 mg documented in this encounter Discontinued Medications Medication Sig Discontinue Reason Start Date End Da te lisinopril-hydrochloro thiazide (PRINZIDE, ZESTORETIC) 20-12.5 mg per tablet Take 1 Tab by mouth daily. Patient states Lisinopril up to 50 mg 12/16/2013 Ihmexer-Shhwno-Emvcaia e (CREON 5) 124 mg (5,000- 18.7K-16K unit) CpDR Take 1 Cap by mouth daily. 12/16/2013 documented as of this encounter Historical Medications * This list may reflect changes made after this encounter. FERROUS FUMARATE (IRON ORAL) Take by mouth at bedtime. Reported on 10/25/2016 01/13/2020 lisinopril-hydro chlorothiazide (PRINZIDE, ZESTORETIC) 20-12.5 mg per tablet Take 1 Tab by mouth daily. 08/17/2015 added in this encounter Active and Recently Administered Medications Times are shown in EDT. Scheduled Medication Order 12/31/2013 01/01/2014 01/02/2014 acetaminophen (TYLENOL) tablet 1,000 mg (COMPLETED) 1,000 mg, oral, PRE-OP ONCE, 1 dose, On Nida 01/02/14 at 1015, Routine, Pre-Op DOS Rx Approved 1019 (Given - Provid er: Chula Bailon RN) ceFAZolin (ANCEF) syringe 2 g (COMPLETED) 2 g, intravenous, Administer over 10 Minutes, PRE-OP ONCE, 1 dose, On Nida 01/02/14 at 1015, Routine, Pre-Op DOS Rx Approved 1206 (Given by Other - Provider: Latisha Hughes RN - Comment: Given in OR by Yolis Casas CRNA) celecoxib (CELEBREX) capsule 200 mg (COMPLETED) 200 mg, oral, PRE-OP ONCE, 1 dose, On Nida 01/02/14 at 1015, Routine, Pre-Op DOS Rx Approved 1019 (Given - Provid er: Chula Bailon RN) oxyCODONE (OXYCONTIN) CR tablet 10 mg (COMPLETED) 10 mg, oral, PRE-OP ONCE, 1 dose, On Nida 01/02/14 at 1015, Routine, Pre-Op DOS Rx Approved 1019 (Given - Provid er: Chula Bailon RN) pregabalin (LYRICA) capsule 75 mg (COMPLETED) 75 mg, oral, PRE-OP ONCE, 1 dose, On Nida 01/02/14 at 1015, Routine, Pre-Op DOS Rx Approved 1019 (Given - Provid er: Chula Bailon RN) Continuous Medication Order 12/31/2013 01/01/2014 01/02/2014 lactated ringers (LR) infusion (CANCELED) at 25 mL/hr, intravenous, CONTINUOUS, Starting on Nida 01/02/14 at 1015, Until Nida 01/02/14 at 2049, Routine, Pre-Op DOS Rx Approved 1017 (New Bag - Prov ider: Chula Bailon RN) PRN Medication Order 12/31/2013 01/01/2014 01/02/2014 oxyCODONE (ROXICODONE) immediate release tablet 5 mg (CANCELED) 5 mg, oral, PRN, 2 doses, Starting on Nida 01/02/14 at 1512, Until Nida 01/02/14 at 2049, Pain, x 2 doses, Routine, Recovery (only) 1731 (Given - Provid er: Becki Martins RN) documented in this encounter Orders Medications Ordered That Nish ht Not Have Been Administered Count Last Ordered Date First Ordered Date acetaminophen (TYLENOL) tablet 500 mg 1 atropine 0.1 mg/mL syringe 0.4 mg 1 014 diphenhydrAMINE (BENADRYL) i njection 6.25 mg 1 01/02/2014 fentaNYL citrate (PF) 50 mcg /mL injection 25-100 mcg 1 01/02/2014 HYDROmorphone (DILAUDID) tablet 2 mg 1 12/15 HYDROmorphone (PF) (DILAUDID ) 1 mg/mL injection 0.2-1 mg 1 01/02/2014 lactated ringers (LR) infusion 1 01/02/2014 meperidine (PF) (DEMEROL) 25 mg/0.5 mL injection 25 mg 1 01/02/2014 nalOXone (NARCAN) injection 0.2 mg 1 2013 ondansetron (PF) (ZOFRAN) injection 2-4 mg 1 01/02/2014 Nursing Count Last Ordered Date First Orde red Date APPLY WARMING BLANKET 1 01/02/[address] SEQUENTIAL COMPRESSION DEVICE 1 01/02 Admission Count Last Ordered Date First Orde red Date STATUS: OUTPATIENT SURGICAL OP BED/SERVICES 1 01/02/2014 Transfer Count Last Ordered Date First Orde red Date NOTIFY PPS PACU PATIENT DISCHARGE 1 014 Discharge Count Last Ordered Date First Orde red Date DISCHARGE PATIENT 1 01/02/2014 documented in this encounter Care Teams Enterprise Systems Architect Relationship Specialty Start Date End Date Darnell Taylor MD [address] [place] [phone] PCP - General 03/02/12 07/29/19 documented as of this encounter
--- OUTSIDE RECORDS SUMMARY | 2024-11-26 14:00 | XMS_ITS | Encounter Summary ---
Author Organization [facility] Address [address] [place] [address] Care Team Providers Care Farmworker Machine Name Role Phone Darnell Taylor MD Primary Care Provider Encounter Details Date Type Department Care Team ([facility] st Contact Info) Description 05/13/2014 Results Only [facility] Laboratory Services - [facility] ([facility]) [address], [place] [id number] Darnell Taylor MD [address] [place] [address] [id number] Social History Tobacco Use Types Packs/Day Years [...] as of this encounter Plan of Treatment Pending Results Name Type Priority Associated Diagnoses Date /Time HEMAGRAM AND DIFFERENTIAL Lab Routine 05/13/2014 8:56 EDT documented as of this encounter Procedures Procedure Name Priority Date/Time Associated Diagnosis Comments IBC Routine 05/13/2014 8:56 EDT DIFFERENTIAL Routine 05/13/2014 8:56 EDT COMPLETE BLOOD COUNT Routine 05/13/2014 8:56 EDT IRON Routine 05/13/2014 8:56 EDT HEPATIC FUNCTION PANEL (ALB,ALK PHOS,ALT,AST,DBIL,TOT EDY,TOT PROT) Routine 05/13/2014 8:56 EDT documented in this encounter Results * (ABNORMAL) DIFFERENTIAL (05/13/2014 8:56 EDT) % Neutrophils 61.9 45.5 - 79.7 % [facility] % Lymphocytes 25.8 15.0 - 46.8 % [facility] % Monocytes 7.5 1.8 - 12.0 % [facility] % Eosinophils 3.5 0.6 - 6.9 % [facility] % Basophils 1.3 0.2 - 1.4 % [facility] ABS Neutrophils 2.26 2.20 - 8.85 K/cmm [facility] ABS Lymphs 0.94(L) 1.09 - 3.30 K/cmm [facility] ABS Monocytes 0.27 0.1 - 0.8 K/cmm [facility] ABS Eosinophils 0.13 0.03 - 0.61 K/cmm [facility] ABS Basophils 0.05 0.01 - 0.11 K/cmm [facility] Type of Diff: Automated [facility] 05/13/2014 8:56 EDT 05/13/2014 11:02 EDT us Darnell Taylor MD HEMATOLOGY & PF4 ORDERABLES Fin al Result [facility] [address] [place] [address] * (ABNORMAL) HEMAGRAM (05/13/2014 8:56 EDT) WBC 3.65(L) 4.0 - 10.4 K/cmm [facility] RBC 4.16(L) 4.36 - 5.78 M/cmm [facility] Hemoglobin 13.5(L) 13.8 - 17.3 gm/dl [facility] HCT 38.8(L) 39.5 - 50.2 % [facility] MCV 93 81 - 95 fl [facility] MCH 32.5 27.6 - 33.0 pg [facility] MCHC 34.8 32.8 - 36.4 gm/dl [facility] PLT 190 141 - 320 K/cmm [facility] RDW-CV 13.4 11.8 - 14.1 % [facility] 05/13/2014 8:56 EDT 05/13/2014 11:02 EDT Darnell Taylor MD HEMATOLOGY & PF4 ORDERABLES Fin al Result Performing Organization Address [facility] Co de Phone Number [facility] [address] [place] [address] * (ABNORMAL) HEPATIC FUNCTION PANEL (ALB,ALK PHOS,ALT,AST,DBIL,TOT EDY,TOT PROT) (05/13/2014 8:56 EDT) Albumin 3.6 3.4 - 4.9 g/dl [facility] Total Protein 6.0(L) 6.5 - 8.3 g/dl [facility] Total Alkaline Phosphatase 71 38 - 126 U/L [facility] ALT 48 21 - 72 U/L [facility] AST 32 15 - 46 U/L [facility] Unconjugated Bilirubin 0.2 0.0 - 1.1 mg/dl [facility] Conjugated Bilirubin 0.0 0.0 - 0.3 mg/dl [facility] Bilirubin, Total <0.5 <1.4 mg/dl FL [facility] 05/13/2014 8:56 EDT 05/13/2014 11:02 EDT Darnell Taylor MD CHEMISTRY & BLOOD GAS ORDERABLE S Final Result Performing Organization Address [facility] Co de Phone Number [facility] [address] [place] [address] * IRON (05/13/2014 8:56 EDT) Iron 64 49 - 181 ug/dl [facility] 05/13/2014 8:56 EDT 05/13/2014 11:02 EDT us Darnell Taylor MD CHEMISTRY & BLOOD GAS ORDERABLE S Final Result Performing Organization Address [facility] de Phone Number [facility] [address] [place] [address] * IBC (05/13/2014 8:56 EDT) TIBC 293 261 - 462 ug/dl [facility] 05/13/2014 8:56 EDT 05/13/2014 11:02 EDT us Darnell Taylor MD CHEMISTRY & BLOOD GAS ORDERABLE S Final Result Performing Organization Address [facility] Phone Number [facility] [address] [place] [phone] documented in this encounter Visit Diagnoses Not on filedocumented in this encounter Care Teams Farmworker Machine Relationship Specialty Start Date End Date Darnell Taylor MD [address] [place] [id number] PCP - General 03/02/12 07/29/19 documented as of this encounter
--- OUTSIDE RECORDS SUMMARY | 2024-11-26 14:00 | XMS_ITS | Encounter Summary ---
Author Organization [facility] Address [address] [place] [address] Care Team Providers Care Data Collection Associate Name Role Phone Darnell Taylor MD Primary Care Provider [phone] Encounter Details Date Type Department Care Team ([facility] Contact Info) Description 12/18/2013 Abstract [facility] Hand & Upper Extremity Program - [address] [place] [address] Fady Kothari, PA Social History Tobacco Use Types Packs/Day Years [...] on filedocumented in this encounter Care Teams Data Collection Associate Relationship Specialty Start Date End Date Darnell Taylor MD [address] [place] [phone] PCP - General 03/02/12 07/29/19 documented as of this encounter
--- OUTSIDE RECORDS SUMMARY | 2024-11-26 14:00 | XMS_ITS | Encounter Summary ---
Author Organization [facility] Address [address] [place] [address] Care Team Providers Care Chinese Herbalist Name Role Phone Darnell Taylor MD Primary Care Provider [phone] Encounter Details Date Type Department Care Team (Latest Contact Info) Description 08/05/2013 17:07 EDT - 08/05/2013 17:08 EDT Hospital Encounter [address] [address] Darek Barry, DO [address] [place] [address] Discharge Disposition: Home or Self Care Social History Tobacco Use Types Packs/Day Years Used Date Smoking Tobacco: Former Cigarettes Q uit: 01/03/1968 Alcohol Use Standard Drinks/Week Comments Yes 58.3 (1 standard drink = 0.6 oz pure alcohol) Sex and Gender Information Value Date Recorded Sex Assigned at Male 03/18/2022 9:53 EDT Legal Sex Male 18:08 EST Gender Identity Male 09/16/2019 15:02 EST Sexual Orientation Not on file documented as of this encounter Discharge Diagnoses Diagnosis 729.82 CRAMP IN LIMB[ICD-9-CM] 401.9 HYPERTENSION NOS[ICD-9-CM] 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 Reported on 10/25/2016 Multivitamins with Minerals Tab Take 1 Tab by mouth daily. Reported on 10/25/2016 Vltijyk-Whbdmx-W rotease (CREON 5) 124 mg (5,000- 18.7K-16K unit) CpDR Take 1 Cap by mouth daily. 4 lisinopril-hydro chlorothiazide (PRINZIDE, ZESTORETIC) 20-12.5 mg per tablet Take 1 Tab by mouth daily. Patient states Lisinopril up to 50 mg 4 pantoprazole (PROTONIX) 40 mg tablet Take 40 mg by mouth at bedtime. Reported on 10/25/2016 0 simvastatin (ZOCOR) 40 mg tablet Take 1 Tab by mouth every evening. 30 Tab 0 01/21/2013 3 documented as of this encounter Discharge Disposition Disposition Code Departure Means Destination Home or Self Care documented in this encounter Plan of Treatment Not on file documented as of this encounter Visit Diagnoses Not on filedocumented in this encounter Care Teams Chinese Herbalist Relationship Specialty Start Date End Date Darnell Taylor MD [address] [place] [phone] PCP - General 03/02/12 07/29/19 documented as of this encounter
--- OUTSIDE RECORDS SUMMARY | 2024-11-26 14:00 | XMS_ITS | Encounter Summary ---
Author Organization [facility] Address [address] [place] [address] Care Team Providers Care Hat Sizer Name Role Phone Darnell Taylor MD Primary Care Provider [phone] Encounter Details Date Type Department Care Team (Late st Contact Info) Description 03/13/2013 8:30 EDT - 03/13/2013 23:59 EDT Hospital Encounter [facility] Pulmonary Function Lab - [facility] [address] [place], [place] [phone] Darnell Taylor MD [address] [place], [place] [phone] Gamaliel Morrow MD [address] [place], [place] [id number] Discharge Disposition: Auto Discharge Social History Tobacco [...] Tab by mouth daily. Reported on 10/25/2016 Bfgrhhf-Ipigfd-C rotease (CREON 5) 124 mg (5,000- 18.7K-16K [...] Auto Discharge Home documented in this encounter Progress Notes * Olive Carranza RT - 03/13/2013 0947 EDT Testing was performed and recorded in [employer]. See complete report in scanned documents. documented in this encounter Procedure Notes * LABEL PRESS OPERATOR, EDWARDO 2 - 03/18/2013 0734 EDTAssociated Order(s): ORDERS - SCANNED documented in this encounter Plan of Treatment Not on file documented as of this encounter Procedures Procedure Name Priority Date/Time Associated Diagnosis Comments ORDERS - SCANNED 03/18/2013 7:34 EDT documented in this encounter Results * ORDERS - SCANNED (03/18/2013 7:34 EDT) 03/18/2013 7:34 EDT Narrative 03/18/2013 7:55 EDT Procedure Note LABEL PRESS OPERATOR, EDWARDO 2 - 03/18/2013 7:34 EDT us Scan 2 Pole Maker ADMISSION ORDERABLES Final Result documented in this encounter Visit Diagnoses Not on filedocumented in this encounter Administered Medications Inactive Administered Medications - up to 3 most recent administrations Medication Order MAR Action Action Date Dose Rate Site albuterol (VENTOLIN HFA) inhaler 4 Puff 4 Puff, inhalation, Once (Without Time Specified), 1 dose, Starting on Mon03/13/13 at 1015, Until Mon03/13/13 at 0910, Routine Given 03/13/2013 9:10 EDT 4 Puffs documented in this encounter Orders Medications Ordered That Nish ht Not Have Been Administered Count Last Ordered Date First Ordered Date albuterol (VENTOLIN HFA) inhaler 4 Puff 1 0 03/13/2013 documented in this encounter Care Teams Hat Sizer Relationship Specialty Start Date End Date Darnell Taylor MD [address] [place] [phone] PCP - General 03/02/12 07/29/19 documented as of this encounter
--- OUTSIDE RECORDS SUMMARY | 2024-11-26 14:00 | XMS_ITS | Encounter Summary ---
Author Organization [facility] Address [address] [place] [address] Care Team Providers Care Reel Slitter Name Role Phone Darnell Taylor MD Primary Care Provider [phone] Encounter Details Date Type Department Care Team ([facility] st Contact Info) Description 08/22/2013 Results Only [facility] Laboratory Services - [facility] ([facility]) [address] [place], [place] [address] Darnell Taylor MD [address] [place], [place] [phone] Social History Tobacco Use Types Packs/Day Years Used Date Smoking Tobacco: Former Cigarettes Q uit: 01/03/1968 Smokeless Tobacco: Never Alcohol Use Standard Drinks/Week Comments Yes 58.3 [...] Priority Date/Time Associated Diagnosis Comments IBC Routine 08/22/2013 16:58 EST IRON Routine 08/22/2013 16:58 EST FERRITIN Routine 08/22/2013 16:58 EST documented in this encounter Results * (ABNORMAL) IRON (08/22/2013 16:58 EST) Iron 61(L) 70 - 180 ug/dl [facility] 08/22/2013 16:5 8 EST 08/22/2013 18:34 EST Darnell Taylor MD CHEMISTRY & BLOOD GAS ORDERABLE S Final Result Performing Organization Address [facility] de Phone Number [facility] [address] [place] [address] * IBC (08/22/2013 16:58 EST) TIBC 318 261 - 462 ug/dl [facility] 08/22/2013 16:5 8 EST 08/22/2013 18:34 EST Darnell Taylor MD CHEMISTRY & BLOOD GAS ORDERABLE S Final Result Performing Organization Address [facility] Phone Number [facility] [address] [place] [address] * FERRITIN (08/22/2013 16:58 EST) Ferritin 160 22 - 322 ng/mL [facility] 08/22/2013 16:5 8 EST 08/22/2013 18:34 EST Darnell Taylor MD CHEMISTRY & BLOOD GAS ORDERABLE S Final Result Performing Organization Address [facility] Phone Number [facility] [address] [place] [address] documented in this encounter Visit Diagnoses Not on filedocumented in this encounter Care Teams Reel Slitter Relationship Specialty Start Date End Date Darnell Taylor MD [address] [place] [id number] PCP - General 03/02/12 07/29/19 documented as of this encounter
--- OUTSIDE RECORDS SUMMARY | 2024-11-26 14:00 | XMS_ITS | Encounter Summary ---
Author Organization [facility] Address [address] [place] [address] Care Team Providers Care Spanish Teacher Name Role Phone Darnell Taylor MD Primary Care Provider [phone] Encounter Details Date Type Department Care Team (Latest Contact Info) Description 11/18/2013 11:36 EST - 11/18/2013 23:59 EST Hospital Encounter [address] [place] [address] Darnell Taylor MD [address] [place] [phone] Discharge Disposition: Home or Self Care Social [...] as of this encounter Discharge Diagnoses Diagnosis 727.03 TRIGGER FINGER[ICD-9-CM] documented in this encounter Medications at Time of Discharge aspirin 81 mg EC tablet Take 81 mg by mouth at bedtime. Reported on 10/25/2016 Multivitamins with Minerals Tab Take 1 Tab by mouth daily. Reported on 10/25/2016 Rlrrdqi-Nwzhfs-H rotease (CREON 5) 124 mg (5,000- 18.7K-16K unit) CpDR Take 1 Cap by mouth daily. 4 cephALEXin (KEFLEX) 500 mg capsule Take 1 Cap by mouth every 6 hours for 1 day. 4 Cap 0 01/02/2014 4 FERROUS FUMARATE (IRON ORAL) Take by mouth at bedtime. Reported on 10/25/2016 0 HYDROmorphone (DILAUDID) 2 mg tablet Take 1-2 Tabs by mouth every 3 hours. Earliest Fill Date: 01/02/14 60 Tab 0 01/02/2014 5 hydrOXYzine (ATARAX) 10 mg tablet Take 1 Tab by mouth 3 times daily as needed for Itching. 20 Tab 0 01/02/2014 5 lisinopril-hydro chlorothiazide (PRINZIDE, ZESTORETIC) 20-12.5 mg per tablet Take 1 Tab by mouth daily. 5 lisinopril-hydro chlorothiazide (PRINZIDE, ZESTORETIC) 20-12.5 mg per tablet Take 1 Tab by mouth daily. Patient states Lisinopril up to 50 mg 4 pantoprazole (PROTONIX) 40 mg tablet Take 40 mg by mouth at bedtime. Reported on 10/25/2016 0 documented as of this encounter Discharge Disposition Disposition Code Departure Means Destination Home or Self Long Term documented in this encounter Plan of Treatment Not on file documented as of this encounter Visit Diagnoses Not on filedocumented in this encounter Care Teams Spanish Teacher Relationship Specialty Start Date End Date Darnell Taylor MD [address] [place] [phone] PCP - General 03/02/12 07/29/19 documented as of this encounter
--- OUTSIDE RECORDS SUMMARY | 2024-11-26 14:00 | XMS_ITS | Encounter Summary ---
Author Organization [facility] Address [address] [place] [address] Care Team Providers Care General Agent Name Role Phone Darnell Taylor MD Primary Care Provider [phone] Encounter Details Date Type Department Care Team (Latest Contact Info) Description 08/08/2013 16:56 EDT - 08/08/2013 23:59 EDT Hospital Encounter [facility] [address] [place] [address] Darek Barry, DO [address] [place] [address] Discharge Disposition: Home or Self [...] as of this encounter Discharge Diagnoses Diagnosis V72.5 RADIOLOGICAL EXAM NEC[ICD-9-CM] documented in this encounter Medications at Time of Discharge aspirin 81 mg EC tablet Take 81 mg by mouth at bedtime. Reported on 10/25/2016 Multivitamins with Minerals Tab Take 1 Tab by mouth daily. Reported on 10/25/2016 Zeghniy-Hgkonx-D rotease (CREON 5) 124 mg (5,000- 18.7K-16K [...] Code Departure Means Destination Home or Self Skilled Nursing documented in this encounter Plan of Treatment Not on file documented as of this encounter Procedures Procedure Name Priority Date/Time Associated Diagnosis Comments L SPINE 2-3 VIEWS 08/08/2013 17: 57 EDT HIP UNILATERAL 2 OR MORE VIEWS 08/08/2013 17:57 EDT CERVICAL SPINE 2-3 VIEWS 08/08/2013 17:57 EDT documented in this encounter Results * L SPINE 2-3 VIEWS (08/08/2013 17:57 EDT) Anatomical Region Laterality Modality Other 08/08/2013 17:5 7 EDT 08/08/2013 18:04 EDT Narrative 08/08/2013 18:04 EDT HIP UNILATERAL 2 OR MORE VIEWS, L SPINE 2-3 VIEWS ??08/08/2013 5:57 PM ?? Signs and Symptoms/Comments: Cervical pain and left arm radiculopathy, lumbar pain, right hip pain Comparison: Abdomen pelvis CT 08/14/2012 Findings: Lumbar spine: Frontal and lateral views of the lumbar spine show no compression deformities. Considerable degenerative disc disease is noted at L5/S1, mild degenerative changes noted elsewhere. Right hip: 2 views of the right hip show minimal degenerative changes right hip, no fracture or other significant pathology. Mild degenerative changes of symphysis noted as well. Procedure Note 08/08/2013 HIP UNILATERAL 2 OR MORE VIEWS, L SPINE 2-3 VIEWS 08/08/2013 5:57 PM Signs and Symptoms/Comments: Cervical pain and left arm radiculopathy, lumbar pain, right hip pain Comparison: Abdomen pelvis CT 08/14/2012 Findings: Lumbar spine: Frontal and lateral views of the lumbar spine show no compression deformities. Considerable degenerative disc disease is noted at L5/S1, mild degenerative changes noted elsewhere. Right hip: 2 views of the right hip show minimal degenerative changes right hip, no fracture or other significant pathology. Mild degenerative changes of symphysis noted as well. Darek Barry DO [facility]AGING ORDERABLES Final Result * HIP UNILATERAL 2 OR MORE VIEWS (08/08/2013 17:57 EDT) Anatomical Region Laterality Modality Other 08/08/2013 17:5 7 EDT 08/08/2013 18:04 EDT Narrative 08/08/2013 18:04 EDT HIP UNILATERAL 2 OR MORE VIEWS, L SPINE 2-3 VIEWS ??08/08/2013 5:57 PM ?? Signs and Symptoms/Comments: Cervical pain and left arm radiculopathy, lumbar pain, right hip pain Comparison: Abdomen pelvis CT 08/14/2012 Findings: Lumbar spine: Frontal and lateral views of the lumbar spine show no compression deformities. Considerable degenerative disc disease is noted at L5/S1, mild degenerative changes noted elsewhere. Right hip: 2 views of the right hip show minimal degenerative changes right hip, no fracture or other significant pathology. Mild degenerative changes of symphysis noted as well. Procedure Note 08/08/2013 HIP UNILATERAL 2 OR MORE VIEWS, L SPINE 2-3 VIEWS 08/08/2013 5:57 PM Signs and Symptoms/Comments: Cervical pain and left arm radiculopathy, lumbar pain, right hip pain Comparison: Abdomen pelvis CT 08/14/2012 Findings: Lumbar spine: Frontal and lateral views of the lumbar spine show no compression deformities. Considerable degenerative disc disease is noted at L5/S1, mild degenerative changes noted elsewhere. Right hip: 2 views of the right hip show minimal degenerative changes right hip, no fracture or other significant pathology. Mild degenerative changes of symphysis noted as well. Darek Barry DO [facility] DIAGNOSTIC IMAGING ORDERABLES Final Result * CERVICAL SPINE 2-3 VIEWS (08/08/2013 17:57 EDT) Anatomical Region Laterality Modality Other 08/08/2013 17:5 7 EDT 08/08/2013 18:09 EDT Narrative 08/08/2013 18:09 EDT CERVICAL SPINE 2-3 VIEWS ??08/08/2013 5:57 PM Signs and Symptoms/Comments: Cervical pain and left arm radiculopathy, lumbar pain, right hip pain Findings: Frontal, lateral, open-mouth and swimmer's views of the cervical spine show degenerative changes mid and lower cervical spine, most notably C4/ 5. No compression deformities, alignment within normal limits. Procedure Note 08/08/2013 CERVICAL SPINE 2-3 VIEWS 08/08/2013 5:57 PM Signs and Symptoms/Comments: Cervical pain and left arm radiculopathy, lumbar pain, right hip pain Findings: Frontal, lateral, open-mouth and swimmer's views of the cervical spine show degenerative changes mid and lower cervical spine, most notably C4/ 5. No compression deformities, alignment within normal limits. Darek Barry DO [facility] DIAGNOSTIC IMAGING ORDERABLES Final Result documented in this encounter Visit Diagnoses Not on filedocumented in this encounter Care Teams General Agent Relationship Specialty Start Date End Date Darnell Taylor MD [address] [place] [phone] PCP - General 03/02/12 07/29/19 documented as of this encounter
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
--- OUTSIDE RECORDS SUMMARY | 2024-11-26 14:00 | XMS_ITS | Encounter Summary ---
Author Organization [facility] Address [address] [place] [address] Care Team Providers Care Plate Drying Machine Tender Name Role Phone Darnell Taylor MD Primary Care Provider Reason for Visit * Reason Comments Tick Removal left posterior wrist tick in place. Attempt to burn tick off SECURITY GUARD Encounter Details Date Type Department Care Team (Late st Contact Info) Description 08/18/2013 19:52 EST - 08/18/2013 20:24 EST Emergency [facility] Emergency Department - Main [place] [address] [place] [address] Marian Gonzalez PA-C [address] [place] [id number] Emergency, MD Lilliam Tick bite (Primary Dx) Discharge Disposition: Home or Self [...] Sign Reading Time Taken Comments Blood Pressure 158/99 08/18/20131954 EST Pulse - - Temperature 36.1 ??C (97 ??F) 08/18/20131954 EST Respiratory Rate 16 08/18/20131954 EST Oxygen Saturation 96% 08/18/20131954 EST Inhaled Oxygen Concentration - - Weight 84.8 kg (187 lb) 08/18/20131954 EST Height 172.7 cm (5' 8) 08/18/20131954 EST Body Mass Index 28.43 08/18/20131954 EST documented in this encounter Discharge Instructions * Discharge Instructions* Marian Gonzalez PA - 08/18/2013 20:15 EST 1. Tick removed today from the left forearm fully intact. 2. Too early to draw Lyme titers. 3. If there is concern for lyme disease- follow up with your PCP in 2-3 weeks. 4. Watch for signs of lyme- flu like symptoms, body aches, fatigue, bulls eye rash that we talked about or other rashes. * Attachments The following attachments cannot be sent through Care Everywhere. * TICK BITE: AFTER YOUR VISIT (EMIRATI) documented in this encounter Medications at Time of Discharge aspirin 81 mg EC tablet Take 81 mg by mouth at bedtime. Reported on 10/25/2016 Multivitamins with Minerals Tab Take 1 Tab by mouth daily. Reported on 10/25/2016 Drjesmc-Jomdjc-A rotease (CREON 5) 124 mg (5,000- 18.7K-16K [...] documented in this encounter ED Notes * Marian Gonzalez PA - 08/18/20132023 ESTAssociated Order(s): FOREIGN BODY REMOVAL Images from the original note were not included. DOS: 08/18/2013 Chief Complaint Patient presents with ??? Tick Removal left posterior wrist tick in place. Attempt to burn tick off SECURITY GUARD The patient is a 67 y.o. male who presents today with Tick Removal HPI Comments: The patient is a 67 year old male here with his significant other who reports he noticed a tick on his left forearm tonight while out to dinner. The straight truck driver at dinner attempted to burn the tick with a cnmt which did not work. The patient reports here for removal of tick. He reports it could not have been on for more than an hour as he felt it bite him and looked and saw it. The tick is not engorged. No rashes. No body aches or fatigue. No fevers or chills. He has mild discomfort where the tick is. He reports it is burrowing deeper and has made it difficult to remove. The history is provided by the patient and the spouse. Tick Removal The current episode started less than 1 hour ago. Pertinent negatives include no fever, no cough, no chest pain, no vomiting and no abdominal pain. Review of Systems Constitutional: Negative for fever, chills, activity change and fatigue. Respiratory: Negative for cough, chest tightness and shortness of breath. Cardiovascular: Negative for chest pain and palpitations. Gastrointestinal: Negative for nausea, vomiting and abdominal pain. Musculoskeletal: Negative for myalgias and arthralgias. Skin: Negative for color change and rash. Neurological: Negative for dizziness, light-headedness and headaches. Past Medical History Diagnosis Date ??? Hypertension ??? FUENTES (dyspnea on exertion) ??? Chest heaviness ??? Abnormal stress test ??? Acid reflux ??? Snores ??? Anemia Past Surgical History Procedure Laterality Date ??? Shoulder surgery Allergies Allergen Reactions ??? Coconut Swelling of throat History Substance Use Topics ??? Smoking status: Former Smoker Quit date: 01/03/1968 ??? Smokeless tobacco: Never Used ??? Alcohol Use: 35.0 oz/week 7 Glasses of wine per week Family History Problem Relation Age of Onset ??? Heart Attack Brother Vital Signs Temp: 36.1 ??C (97 ??F) Temp src: Tympanic Heart Rate: 74 BPM Resp: 16 SpO2: 96 % SpCO: 0 % BP: 158/99 mmHg BP Device: BP Machine Patient Position: Sitting BP Cuff Location: Right arm O2 Device: None (Room air) Physical Exam Constitutional: He is oriented to person, place, and time. He appears well- developed and well-nourished. No distress. HENT: Head: Normocephalic and atraumatic. Neck: Normal range of motion. Neck supple. Cardiovascular: Normal rate, regular rhythm and normal heart sounds. Pulmonary/Chest: Breath sounds normal. No respiratory distress. Lymphadenopathy: He has no cervical adenopathy. Neurological: He is alert and oriented to person, place, and time. Skin: Skin is warm and dry. Puncture wound noted L forearm, just proximal to L wrist dorsal side with tick protruding. The tickis not engorged. No tenderness to palpation. No discharge or drainage. Psychiatric: He has a normal mood and affect. His behavior is normal. Radiology orders: None Imaging Results None FB Removal Date/Time: 08/18/2013 20:31 Performed by: PAConsent: Verbal consent obtained. Consent given by: patient Patient not restrained Patient cooperative Time out: Immediately prior to procedure a time out was called to verify the correct patient, procedure, equipment, system support administrator and site/side marked as required, Intake: L forearm. Complexity: simple Number of Objects Recovered: 1 Objects Recovered: tick Post-procedure assessment: foreign body removed Patient tolerance: Patient tolerated the procedure well with no immediate complications Comments: Tick removed using tick twisters with out difficulty. Tick placed in specimen cup. ED Course: A medical screening exam was performed. The patient and his report certainty that the tick hasbeen on for < 1 hour. Tick removed fully intact, not engorged. Declines prophylaxis dose of Doxycycline. They do ask about titers. Discussed with them that it is too early to draw titer and that it will not be reliable since tick has only been on for <1 hour. Signs of lyme discussed. Discussed with patient that if there is concern, should f/u with PCP to discuss titers. They verbalize understanding. Disposition: Discharged The patient's pain was managed to an adequate level weighing risk vs. benefit of further medications. Upon departure from the Emergency Department, the patient's pain was 4 on a zero to ten scale. Condition at departure from the Emergency Department: Stable Discharge Medication List as of 08/18/2013 20:16 CONTINUE these medications which have NOT CHANGED Details Ogcmsmt-Srnuiv-Ylmfuxuf (CREON 5) 124 mg (5,000- 18.7K-16K unit) CpDR Take 1 Cap by mouth daily., Until Discontinued, Historical Med aspirin 81 mg EC tablet Take 81 mg by mouth daily. Instructed to take 01/18- 01/21/13, Until Discontinued, Historical Med lisinopril-hydrochlorothiazide (PRINZIDE, ZESTORETIC) 20-12.5 mg per tablet Take 1 Tab by mouth daily. Patient states Lisinopril up to 50 mg, Historical Med Multivitamins with Minerals Tab Take 1 Tab by mouth daily., Until Discontinued, Historical Med pantoprazole (PROTONIX) 40 mg tablet Take 40 mg by mouth at bedtime., Until Discontinued, Historical Med MDM Final diagnoses: Tick bite PCP: MD Yajaira ESTES was available for supervision. 08/18/2013 20:37 documented in this encounter Plan of Treatment Not on file documented as of this encounter Procedures Procedure Name Priority Date/Time Associated Diagnosis Comments FOREIGN BODY REMOVAL - EMBEDDED Routine 08/18/2013 20:43 EST Tick bite documented in this encounter Results * FOREIGN BODY REMOVAL (08/18/2013 20:43 EST) Narrative [facility] EKG - 08/18/2013 20:43 EST Marian Gonzalez PA ? 08/18/2013 20:43 DOS: 08/18/2013 Chief Complaint Patient presents with ? ? Tick Removal ??left posterior wrist tick in place. Attempt to burn tick off SECURITY GUARD The patient is a 67 y.o. male who presents today with Tick Removal HPI Comments: The patient is a 67 year old male here with his significant other who reports he noticed a tick on his left forearm tonight while out to dinner. The straight truck driver at dinner attempted to burn the tick with a cnmt which did not work. The patient reports here for removal of tick. He reports it could not have been on for more than an hour as he felt it bite him and looked and saw it. The tick is not engorged. No rashes. No body aches or fatigue. No fevers or chills. He has mild discomfort where the tick is. He reports it is burrowing deeper and has made it difficult to remove. The history is provided by the patient and the spouse. Tick Removal The current episode started less than 1 hour ago. Pertinent negatives include no fever, no cough, no chest pain, no vomiting and no abdominal pain. Review of Systems Constitutional: Negative for fever, chills, activity change and fatigue. Respiratory: Negative for cough, chest tightness and shortness of breath. ?? Cardiovascular: Negative for chest pain and palpitations. Gastrointestinal: Negative for nausea, vomiting and abdominal pain. Musculoskeletal: Negative for myalgias and arthralgias. Skin: Negative for color change and rash. Neurological: Negative for dizziness, light-headedness and headaches. Past Medical History Diagnosis Date ? ? Hypertension ? FUENTES (dyspnea on exertion) ? Chest heaviness ? Abnormal stress test ? Acid reflux ? Snores ? Anemia ?? Past Surgical History Procedure Laterality Date ? ? Shoulder surgery ?? Allergies Allergen Reactions ? ? Coconut Swelling of throat History Substance Use Topics ? ? Smoking status: Former Smoker ??Quit date: 01/03/1968 ? ? Smokeless tobacco: Never Used ? ? Alcohol Use: 35.0 oz/week ??7 Glasses of wine per week Family History Problem Relation Age of Onset ? ? Heart Attack Brother ?? Vital Signs Temp: 36.1 ??C (97 ??F) Temp src: Tympanic Heart Rate: 74 BPM Resp: 16 SpO2: 96 % SpCO: 0 % BP: 158/99 mmHg BP Device: BP Machine Patient Position: Sitting BP Cuff Location: Right arm O2 Device: None (Room air) Physical Exam Constitutional: He is oriented to person, place, and time. He appears well-developed and well-nourished. No distress. HENT: Head: Normocephalic and atraumatic. Neck: Normal range of motion. Neck supple. Cardiovascular: Normal rate, regular rhythm and normal heart sounds. ?? Pulmonary/Chest: Breath sounds normal. No respiratory distress. Lymphadenopathy: ??He has no cervical adenopathy. Neurological: He is alert and oriented to person, place, and time. Skin: Skin is warm and dry. Puncture wound noted L forearm, just proximal to L wrist dorsal side with tick protruding. The tick is not engorged. No tenderness to palpation. No discharge or drainage. ?? Psychiatric: He has a normal mood and affect. His behavior is normal. Radiology orders: None Imaging Results None FB Removal Date/Time: 08/18/2013 20:31 Performed by: PAConsent: Verbal consent obtained. Consent given by: patient Patient not restrained Patient cooperative Time out: Immediately prior to procedure a time out was called to verify the correct patient, procedure, equipment, system support administrator and site/side marked as required, Intake: L forearm. Complexity: simple Number of Objects Recovered: 1 Objects Recovered: tick Post-procedure assessment: foreign body removed Patient tolerance: Patient tolerated the procedure well with no immediate complications Comments: Tick removed using tick twisters with out difficulty. Tick placed in specimen cup. ED Course: ?? A medical screening exam was performed. The patient and his report certainty that the tick has been on for < 1 hour. Tick removed fully intact, not engorged. Declines prophylaxis dose of Doxycycline. They do ask about titers. Discussed with them that it is too early to draw titer and that it will not be reliable since tick has only been on for <1 hour. Signs of lyme discussed. Discussed with patient that if there is concern, should f/u with PCP to discuss titers. They verbalize understanding. Disposition: Discharged The patient's pain was managed to an adequate level weighing risk vs. benefit of further medications. Upon departure from the Emergency Department, the patient's pain was 4 on a zero to ten scale. Condition at departure from the Emergency Department: Stable Discharge Medication List as of 08/18/2013 20:16 CONTINUE these medications which have NOT CHANGED Details Iqvnkqt-Kzbymr-Bjtnfvjr (CREON 5) 124 mg (5,000- 18.7K-16K unit) CpDR Take 1 Cap by mouth daily., Until Discontinued, Historical Med aspirin 81 mg EC tablet Take 81 mg by mouth daily. Instructed to take 01/18-01/21/13, Until Discontinued, Historical Med lisinopril-hydrochlorothiazide (PRINZIDE, ZESTORETIC) 20-12.5 mg per tablet Take 1 Tab by mouth daily. Patient states Lisinopril up to 50 mg, Historical Med Multivitamins with Minerals Tab Take 1 Tab by mouth daily., Until Discontinued, Historical Med pantoprazole (PROTONIX) 40 mg tablet Take 40 mg by mouth at bedtime., Until Discontinued, Historical Med MDM Final diagnoses: Tick bite PCP: ??MD Yajaira ESTES was available for supervision. 08/18/2013 20:37 Procedure Note Marian Gonzalez PA - 08/18/2013 20:24 EST Images from the original note were not included. DOS: 08/18/2013 Chief Complaint Patient presents with ? ? Tick Removal left posterior wrist tick in place. Attempt to burn tick off SECURITY GUARD The patient is a 67 y.o. male who presents today with Tick Removal HPI Comments: The patient is a 67 year old male here with his significantother who reports he noticed a tick on his left forearm tonight while outto dinner. The straight truck driver at dinner attempted to burn the tick with a lighterwhich did not work. The patient reports here for removal of tick. Hereports it could not have been on for more than an hour as he felt itbite him and looked and saw it. The tick is not engorged. No rashes. Nobody aches or fatigue. No fevers or chills. He has mild discomfort wherethe tick is. He reports it is burrowing deeper and has made it difficultto remove. The history is provided by the patient and the spouse. Tick Removal The current episode started less than 1 hour ago. Pertinent negativesinclude no fever, no cough, no chest pain, no vomiting and no abdominalpain. Review of Systems Constitutional: Negative for fever, chills, activity change and fatigue. Respiratory: Negative for cough, chest tightness and shortness of breath. Cardiovascular: Negative for chest pain and palpitations. Gastrointestinal: Negative for nausea, vomiting and abdominal pain. Musculoskeletal: Negative for myalgias and arthralgias. Skin: Negative for color change and rash. Neurological: Negative for dizziness, light-headedness and headaches. Past Medical History Diagnosis Date ? ? Hypertension ? ? FUENTES (dyspnea on exertion) ? ? Chest heaviness ? ? Abnormal stress test ? ? Acid reflux ? ? Snores ? ? Anemia Past Surgical History Procedure Laterality Date ? ? Shoulder surgery Allergies Allergen Reactions ? ? Coconut Swelling of throat History Substance Use Topics ? ? Smoking status: Former Smoker Quit date: 01/03/1968 ? ? Smokeless tobacco: Never Used ? ? Alcohol Use: 35.0 oz/week 7 Glasses of wine per week Family History Problem Relation Age of Onset ? ? Heart Attack Brother Vital Signs Temp: 36.1 ??C (97 ??F) Temp src: Tympanic Heart Rate: 74 BPM Resp: 16 SpO2: 96 % SpCO: 0 % BP: 158/99 mmHg BP Device: BP Machine Patient Position: Sitting BP Cuff Location: Right arm O2 Device: None (Room air) Physical Exam Constitutional: He is oriented to person, place, and time. He appearswell- developed and well-nourished. No distress. HENT: Head: Normocephalic and atraumatic. Neck: Normal range of motion. Neck supple. Cardiovascular: Normal rate, regular rhythm and normal heart sounds. Pulmonary/Chest: Breath sounds normal. No respiratory distress. Lymphadenopathy: He has no cervical adenopathy. Neurological: He is alert and oriented to person, place, and time. Skin: Skin is warm and dry. Puncture wound noted L forearm, just proximal to L wrist dorsal side withtick protruding. The tick is not engorged. No tenderness to palpation. Nodischarge or drainage. Psychiatric: He has a normal mood and affect. His behavior is normal. Radiology orders: None Imaging Results None FB Removal Date/Time: 08/18/2013 20:31 Performed by: PAConsent: Verbal consent obtained. Consent given by: patient Patient not restrained Patient cooperative Time out: Immediately prior to procedure a time out was called to verifythe correct patient, procedure, equipment, system support administrator and site/sidemarked as required, Intake: L forearm. Complexity: simple Number of Objects Recovered: 1 Objects Recovered: tick Post-procedure assessment: foreign body removed Patient tolerance: Patient tolerated the procedure well with no immediatecomplications Comments: Tick removed using tick twisters with out difficulty. Tickplaced in specimen cup. ED Course: A medical screening exam was performed. The patient and his reportcertainty that the tick has been on for < 1 hour. Tick removed fullyintact, not engorged. Declines prophylaxis dose of Doxycycline. They doask about titers. Discussed with them that it is too early to draw titerand that it will not be reliable since tick has only been on for <1 hour.Signs of lyme discussed. Discussed with patient that if there is concern,should f/u with PCP to discuss titers. They verbalize understanding. Disposition: Discharged The patient's pain was managed to an adequate level weighing risk vs.benefit of further medications. Upon departure from the EmergencyDepartment, the patient's pain was 4 on a zero to ten scale. Condition at departure from the Emergency Department: Stable Discharge Medication List as of 08/18/2013 20:16 CONTINUE these medications which have NOT CHANGED Details Xlkqbyb-Ckjsdb-Lkgrzqgh (CREON 5) 124 mg (5,000- 18.7K-16K unit) CpDR Take1 Cap by mouth daily., Until Discontinued, Historical Med aspirin 81 mg EC tablet Take 81 mg by mouth daily. Instructed to take01/18-01/21/13, Until Discontinued, Historical Med lisinopril-hydrochlorothiazide (PRINZIDE, ZESTORETIC) 20-12.5 mg pertablet Take 1 Tab by mouth daily. Patient states Lisinopril up to 50 mg,Historical Med Multivitamins with Minerals Tab Take 1 Tab by mouth daily., UntilDiscontinued, Historical Med pantoprazole (PROTONIX) 40 mg tablet Take 40 mg by mouth at bedtime.,Until Discontinued, Historical Med MDM Final diagnoses: Tick bite PCP: MD Yajaira ESTES was available for supervision. 08/18/2013 20:37 Marian Gonzalez PA-C PROCEDURE/MINOR SURGICAL ORD ERABLES Edited FA EKG documented in this encounter Visit Diagnoses Diagnosis Tick bite- Primary Other, multiple, and unspecified sites, insect bite, nonvenomous, without mention of infection documented in this encounter Discontinued Medications Medication Sig Discontinue Reason Start Date End Da te simvastatin (ZOCOR) 40 mg tablet Take 1 Tab by mouth every evening. 01/21/2013 08/18/2013 documented as of this encounter Care Teams Plate Drying Machine Tender Relationship Specialty Start Date End Date Darnell Taylor MD [address] [place] [id number] PCP - General 03/02/12 07/29/19 documented as of this encounter
--- OUTSIDE RECORDS SUMMARY | 2024-11-26 14:00 | XMS_ITS | Encounter Summary ---
Author Organization [facility] Address [address] [place] [address] Care Team Providers Care Safe And Vault Service Mechanic Name Role Phone Darnell Taylor MD Primary Care Provider [phone] Encounter Details Date Type Department Care Team (Late st Contact Info) Description 08/05/2013 Results Only [facility] Laboratory Services - [facility] ([facility]) [address], [place] [address] Darek Barry, DO [address] [place] [address] Social History Tobacco Use Types Packs/Day Years [...] Associated Diagnosis Comments COMPLETE BLOOD COUNT Routine 08/05/2013 19:10 EDT TSH Routine 08/05/2013 19:10 EDT MAGNESIUM Routine 08/05/2013 19:10 EDT VITAMIN B12 Routine 08/05/2013 19:10 EDT CK Routine 08/05/2013 19:10 EDT BASIC METABOLIC PANEL (BMP) Routine 08/05/2013 19:10 EDT documented in this encounter Results * TSH (08/05/2013 19:10 EDT) TSH 1.94 0.35 - 5.00 uIU/ml [facility] 08/05/2013 19:1 0 EDT 08/05/2013 21:28 EDT Darek Barry DO CHEMISTRY & BLOOD GAS O RDERABLES Final Result Performing Organization Address [facility] de Phone Number [facility] [address] [place] [address] * MAGNESIUM (08/05/2013 19:10 EDT) Pathologist [facility] Magnesium 1.7 1.7 - 2.8 mg/dl [facility] 08/05/2013 19:1 0 EDT 08/05/2013 21:28 EDT Darek Barry DO CHEMISTRY & BLOOD GAS O RDERABLES Final Result Performing Organization Address [facility] Co de Phone Number [facility] [address] [place] [address] * CK (08/05/2013 19:10 EDT) CK 118 0 - 250 U/L [facility] 08/05/2013 19:1 0 EDT 08/05/2013 21:28 EDT Darek Barry DO CHEMISTRY & BLOOD GAS O RDERABLES Final Result Performing Organization Address [facility] Co de Phone Number [facility] [address] [place] [address] * (ABNORMAL) HEMAGRAM (08/05/2013 19:10 EDT) WBC 5.44 4.0 - 10.4 K/cmm [facility] RBC 4.17(L) 4.36 - 5.78 M/cmm [facility] Hemoglobin 13.4(L) 13.8 - 17.3 gm/dl [facility] HCT 39.4(L) 39.5 - 50.2 % [facility] MCV 94 81 - 95 fl [facility] MCH 32.0 27.6 - 33.0 pg [facility] MCHC 33.9 32.8 - 36.4 gm/dl [facility] PLT 187 141 - 320 K/cmm [facility] RDW-CV 13.3 11.8 - 14.1 % [facility] 08/05/2013 19:1 0 EDT 08/05/2013 21:28 EDT Darek Barry DO HEMATOLOGY & PF4 ORDERA BLES Final Result [facility] [address] [place] [address] * BASIC METABOLIC PANEL (08/05/2013 19:10 EDT) Pathologist [facility] Sodium 141 136 - 145 mEq/L [facility] Potassium 4.0 3.5 - 5.0 mEq/L [facility] Chloride 109 96 - 110 mEq/L [facility] CO2 28 24 - 32 mEq/L [facility] BUN 12 10 - 26 mg/dl [facility] Creatinine 0.99 0.66 - 1.25 mg/dl [facility] GFR, Calculated >60 >60 ml/min/1.7 3m2 [facility] Calcium 9.5 8.5 - 10.5 mg/dl [facility] Calculated Calcium 9.8 8.5 - 10.5 mg/dl [facility] Glucose, Serum 90 70 - 100 mg/dl [facility] Fasting? No [facility] 08/05/2013 19:1 0 EDT 08/05/2013 21:28 EDT Darek Barry DO CHEMISTRY & BLOOD GAS O RDERABLES Final Result Performing Organization Address [facility] de Phone Number [facility] [address] [place] [address] * VITAMIN B12 (08/05/2013 19:10 EDT) Vitamin B-12 380 211 - 911 pg/ml [facility] 08/05/2013 19:1 0 EDT 08/05/2013 21:28 EDT Darek Barry DO CHEMISTRY & BLOOD GAS O RDERABLES Final Result Performing Organization Address [facility] de Phone Number [facility] [address] [place] [address] documented in this encounter Visit Diagnoses Not on filedocumented in this encounter Care Teams Safe And Vault Service Mechanic Relationship Specialty Start Date End Date Darnell Taylor MD [address] [place] [id number] PCP - General 03/02/12 07/29/19 documented as of this encounter
--- OUTSIDE RECORDS SUMMARY | 2024-11-26 14:00 | XMS_ITS | Encounter Summary ---
Author Organization [facility] Address [address] [place] [address] Care Team Providers Care Contact Lens Manufacturer Name Role Phone Darnell Taylor MD Primary Care Provider [phone] Encounter Details Date Type Department Care Team (Latest Contact Info) Description 08/22/2013 10:49 EST - 08/22/2013 10:50 EST Hospital Encounter [facility] [address] [place] [address] Darnell Taylor MD [address] [place] [address] Discharge Disposition: Home or Self Care Social [...] Tab by mouth daily. Reported on 10/25/2016 Nfkiwou-Ovbdob-S rotease (CREON 5) 124 mg (5,000- 18.7K-16K [...] Procedure Name Priority Date/Time Associated Diagnosis Comments RAD US EXTREMITY NON VASCULAR COMPLETE 09/10/2013 11:35 EST documented in this encounter Results * RAD US EXTREMITY NON VASCULAR COMPLETE (09/10/2013 11:35 EST) Anatomical Region Laterality Modality Other 09/10/2013 11:3 5 EST 09/10/2013 13:44 EST Narrative 09/10/2013 13:44 EST US EXTREMITY NON VASCULAR COMPLETE ??09/10/2013 11:35 AM Signs and Symptoms/Comments: Lt bicep pain after trauma. Comparison: None. Technique: Grayscale, color Doppler, and cine ultrasound images of the left shoulder/upper extremity were performed in the vicinity of the patient's pain. Scans of the contralateral right shoulder/upper extremity were performed for comparison. Findings: Scans in the vicinity of the patient's left upper extremity pain demonstrate a complete tear of the long head of the biceps tendon. The distal tendon and muscle body are retracted approximately 14 cm from the level of the humeral head. The retracted tendon is remarkable for tendinosis with a surrounding heterogeneous collection compatible with hematoma. The distal insertion of the long head of the biceps tendon on the radial tuberosity appears intact. The tendons of the rotator cuff appear grossly unremarkable. Impression:: 1. Complete tear of the proximal long head of the biceps tendon with significant distal retraction approx. 14 cm below the humeral head. I have personally reviewed the images and the above interpretation and agree with the findings. Procedure Note Darci Hernandez MD - 09/10/2013 US EXTREMITY NON VASCULAR COMPLETE 09/10/2013 11:35 AM Signs and Symptoms/Comments: Lt bicep pain after trauma. Comparison: None. Technique: Grayscale, color Doppler, and cine ultrasound images of the left shoulder/upper extremity were performed in the vicinity of the patient's pain. Scans of the contralateral right shoulder/upper extremity were performed for comparison. Findings: Scans in the vicinity of the patient's left upper extremity pain demonstrate a complete tear of the long head of the biceps tendon. The distal tendon and muscle body are retracted approximately 14 cm from the level of the humeral head. The retracted tendon is remarkable for tendinosis with a surrounding heterogeneous collection compatible with hematoma. The distal insertion of the long head of the biceps tendon on the radial tuberosity appears intact. The tendons of the rotator cuff appear grossly unremarkable. Impression:: 1. Complete tear of the proximal long head of the biceps tendon with significant distal retraction approx. 14 cm below the humeral head. I have personally reviewed the images and the above interpretation and agree with the findings. us Joaquín Cooper DO IMG US ORDERABLES Final Res ult documented in this encounter Visit Diagnoses Not on filedocumented in this encounter Care Teams Contact Lens Manufacturer Relationship Specialty Start Date End Date Darnell Taylor MD [address] [place] [id number] PCP - General 03/02/12 07/29/19 documented as of this encounter
--- OUTSIDE RECORDS SUMMARY | 2024-11-26 14:00 | XMS_ITS | Encounter Summary ---
Author Organization [facility] Address [address] [place] [address] Care Team Providers Care Construction Safety Manager Name Role Phone Darnell Taylor MD Primary Care Provider [phone] Encounter Details Date Type Department Care Team (Latest Contact Info) Description 12/31/2013 Pre-Procedure Orders Encounter [facility] [address] [place], [place] [address] Murtaza Negro, JAMES [address] [place] [address] Disorders of bursae and tendons in shoulder region, unspecified (Primary Dx); Supraspinatus (muscle) (tendon) sprain; Primary localized osteoarthrosis, shoulder region Social History Tobacco Use Types Packs/Day Years [...] as of this encounter Visit Diagnoses Diagnosis Disorders of bursae and tendons in shoulder region, unspecified- Primary Supraspinatus (muscle) (tendon) sprain Primary localized osteoarthrosis, shoulder region documented in this encounter Care Teams Construction Safety Manager Relationship Specialty Start Date End Date Darnell Taylor MD [address] [place] [id number] PCP - General 03/02/12 07/29/19 documented as of this encounter
--- OUTSIDE RECORDS SUMMARY | 2024-11-26 14:00 | XMS_ITS | Encounter Summary ---
Author Organization [facility] Address [address] [place] [address] Care Team Providers Care Director Of Online Education Name Role Phone Darnell Taylor MD Primary Care Provider [phone] Reason for Referral * Consult, Test and Treat (Routine/Next Available) - Closed Specialty Diagnoses / Procedures Referred By Nelia sanford Referred To Contact Rehab Therapies Diagnoses Trigger finger of right hand Fady Kothari PA [facility] Rehabilitation Therapy - [place] [address] [place] [address] Phone: tel: fax: Referral ID Status Reason Start Date Expiration Date V isits Requested Visits Authorized [id number] Closed Specialty Services Required 11/18/2013 1 1 Question Answer Reason for Request: RIght index and long finger trigger fingers post injection today Comments Post injection trigger splint only protocol Reason for Visit * Reason Comments Hand Pain Bilateral hand pain saw [facility] back in 2008 for synovitis left long trigger finger. Encounter Details Date Type Department Care Team (Late st Contact Info) Description 11/18/2013 9:45 EST Office Visit [facility] Hand & Upper Extremity Program - [address] [address] Fady Kothari PA Trigger finger of right hand (Primary Dx) Social History Tobacco Use Types [...] as of this encounter Progress Notes * Fady Kothari PA - 12/09/2013 0117 EST PROBLEM: Right index and long fingers have been triggering for 4 to 6 months and the left thumb hasbeen triggering for 1 month. 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 He has not found anything that helps loosen his triggering finger and thumb pain improve. He notes occasional swelling and numbness and tingling. He has not tried any type of treatment. He has reflux of NSAIDs, apparently not well-tolerated. He did have a left long trigger finger release byDr Greg alvarez in March 2009. 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 His symptoms are worse in the morning and at the end of the work day. He is wondering about getting a surgical release. He does not recall ever having had a cortisone injection for trigger finger. He has not done any splinting. He is having surgery with Dr Howell on January 02. PAST MEDICAL HISTORY: Anemia, atherosclerosis, dyspenia, dyspepsia, reflux, hypertension, rupture of bicipital tendon in the left arm. ALLERGIES: LISINOPRIL and COCONUT. MEDICATIONS: Pantoprazole, for certain potassium test hydrochlorothiazide. SOCIAL HISTORY: Nonsmoker. Has glass of wine a day. Posttraumatic For the remainder of complete medical, family and social history and review of systems, see intake sheet and [facility] record. EXAMINATION: Five feet 8-inch, 180 pound male. A+O x3. Right long finger demonstrates stiffness andcan bring the tip of his finger to only 2 cm above his palm and flex the MCP joint to 70 right compared to 90 left and PIP joint to 90 right compared to 100 left. He can flex the right index finger to 1 cm above his palm. He can reproduce active triggering in both fingers. Examination of left thumbdemonstrates mild tenderness over the A1 donavan site as with the right long and index fingers. His thumb demonstrates active range of motion with mild triggering. Neurovascular exam intact. IMPRESSION: 1. 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 2. Acute mild left trigger thumb. 3. Status post left long trigger finger [place] [address] Garza and that went well. PROCEDURE: Right long and index trigger finger cortisone injections with 40 mg of Depo-Medrol and 0.5 mL of lidocaine on each finger. Informed consent obtained. PLAN: Observe response to the cortisone injections. Hand therapy referral for right long and index trigger finger, post-injection splint protocol. His thumb is not bothering him very much and he willconsider treatment for this later if needed. He would like to follow up in 2 weeks to consider a left trigger thumb cortisone injection or splinting at that point pending his response as well to his right long and index trigger fingers; however, he is going to give it 6 weeks post-injection to crap game box person the full effect of the cortisone injection. Generally recommend 2 cortisone injections before proceeding with surgical trigger finger release. 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 cc: Darnell Taylor * Panfilo Newton - 11/18/2013 1116 EST Two trigger finger injections today consisting of XYLOCAINE LOT # [id number] [facility] # [id number] EXP DATE 07/2017 HYDRAULICS TEACHER-BHAVANA 1 cc DEPO MEDROL 40 mg LOT # [id number] ND # [id number] EXP DATE 05/2014 HYDRAULICS TEACHER- PFIZER 1cc DEPO MEDROL 40 mg LOT # [id number] ND # [id number] EXP DATE 05/2014 HYDRAULICS TEACHER- PFIZER 1 cc TOM Whittaker documented in this encounter Plan of Treatment Scheduled Referrals Name Type Priority Associated Diagnoses Orde r Schedule AMB CONSULT HAND THERAPY Outpatient Referral Routine Trigger Finger Of Right Hand Ordered: 11/18/2013 documented as of this encounter Visit Diagnoses Diagnosis Trigger finger of right hand- Primary Trigger finger (acquired) documented in this encounter Care Teams Director Of Online Education Relationship Specialty Start Date End Date Darnell Taylor MD [address] [place] [address] PCP - General 03/02/12 07/29/19 documented as of this encounter
--- OUTSIDE RECORDS SUMMARY | 2024-11-26 14:01 | XMS_ITS | Encounter Summary ---
Author Organization [facility] Address [address] [place] [address] Care Team Providers Care Cane Feeder Name Role Phone Darnell Taylor MD Primary Care Provider [phone] Reason for Visit * Reason Onset Date Comments Returning Call 01/11/2013 Encounter Details Date Type Department Care Team (Late st Contact Info) Description 01/11/2013 Telephone [facility] Cardiology - [address] [place] [address] Rita Daniel NP [address] [facility], [address] [place] [address] Returning Call Social History Tobacco Use Types Packs/Day Years [...] encounter Miscellaneous Notes * Telephone Encounter - Rita Daniel NP - 01/11/2013 1023 EDT Patient has chosen to have left heart catheter because of abnormal stress test which has been scheduled * Telephone Encounter - ElinaSunSandy - 01/11/2013 1055 EDT Pt is returning rita's call, is on lunch until 11:40am today and can also try him back after he gets out of work @ 3pm documented in this encounter Plan of Treatment Not on file documented as of this encounter Visit Diagnoses Not on filedocumented in this encounter Care Teams Cane Feeder Relationship Specialty Start Date End Date Darnell Taylor MD [address] [place] [address] PCP - General 03/02/12 07/29/19 documented as of this encounter
--- OUTSIDE RECORDS SUMMARY | 2024-11-26 14:01 | XMS_ITS | Encounter Summary ---
Author Organization [facility] Address [address] [place] [address] Care Team Providers Care Sales Applications Engineer Name Role Phone Darnell Taylor MD Primary Care Provider [phone] Reason for Visit * Reason Onset Date Comments Pharmacy 01/18/2013 Encounter Details Date Type Department Care Team (Late st Contact Info) Description 01/18/2013 Telephone [facility] Cardiology - [address] [address] Nile Quinn MD [address] [facility] [address] [place] [address] Pharmacy Social History Tobacco Use Types Packs/Day Years [...] encounter Miscellaneous Notes * Telephone Encounter - Jazmin Daniel NP - 01/18/2013 1031 EDT Clarified that the patient is to take 4 tabs in the evening before his left heart catheterization and 1 tab in the morning * Telephone Encounter - Jennifer Joseph - 01/18/2013 0927 EDT Pharmacy has questions on direction for plavix script. Please call. documented in this encounter Plan of Treatment Not on file documented as of this encounter Visit Diagnoses Not on filedocumented in this encounter Care Teams Sales Applications Engineer Relationship Specialty Start Date End Date Darnell Taylor MD [address] [place] [id number] PCP - General 03/02/12 07/29/19 documented as of this encounter
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
--- OUTSIDE RECORDS SUMMARY | 2024-11-26 14:01 | XMS_ITS | Encounter Summary ---
Author Organization [facility] Address [address] [place] [address] Care Team Providers Care Facility Administrator Name Role Phone Darnell Taylor MD Primary Care Provider [phone] Reason for Visit * Reason Onset Date Comments Letter for School/Work 01/22/2013 Encounter Details Date Type Department Care Team (Late st Contact Info) Description 01/22/2013 Telephone [facility] Cardiology - [address] [address] Nile Quinn MD [address] [place] [address] [address] [place] [address] Letter for School/Work Social History Tobacco Use [...] Telephone Encounter - Jazmin Daniel NP - 01/23/2013 0919 EDT S been written for return to work. * Telephone Encounter - Crystal Scott - 01/22/2013 1547 EDT The patient had a procedure done yesterday and needs a letter to return to work on . documented in this encounter Plan of Treatment Not on file documented as of this encounter Visit Diagnoses Not on filedocumented in this encounter Care Teams Facility Administrator Relationship Specialty Start Date End Date Darnell Taylor MD [address] [place] [id number] PCP - General 03/02/12 07/29/19 documented as of this encounter
--- OUTSIDE RECORDS SUMMARY | 2024-11-26 14:01 | XMS_ITS | Encounter Summary ---
Author Organization [facility] Address [address] [place] [address] Care Team Providers Care Detail Drafter Name Role Phone Zhao Parada MD Primary Care Provider Reason for Visit * Reason Comments Chest Pain Pt to ED with SSCP s viktoriya yesterday with some SOB over the past 3-4 days Encounter Details Date Type Department Care Team (Late st Contact Info) Description 12/14/2012 18:29 EST - 12/14/2012 23:25 EST Emergency [facility] Emergency Department - [facility] [address], [place] [id number] Zhao Larios MD [address] [facility], Level [address] [place] [phone] Emergency, MD Lilliam Epigastric pain (Primary Dx) Discharge Disposition: Home or Self Care Social History Tobacco Use Types Packs/Day Years Used Date Smoking Tobacco: Never Alcohol Use Standard Drinks/Week Comments [...] Sign Reading Time Taken Comments Blood Pressure 130/74 12/14/2012 2325 EST Pulse 74 12/14/2012 1833 EST Temperature 36 ??C (96.8 ??F) 12/14/2012 1833 EST Respiratory Rate 15 12/14/2012 2325 EST Oxygen Saturation 98% 12/14/2012 2325 EST Inhaled Oxygen Concentration - - Weight 82.6 kg (182 lb) 12/14/2012 1833 EST Height 172.7 cm (5' 8) 12/14/2012 1833 EST Body Mass Index 27.67 12/14/2012 1833 EST documented in this encounter Discharge Instructions * Discharge Instructions* Zhao Larios IV, MD - 12/14/2012 23:15 EST Your bloodwork and EKGs are reassuring but do not clearly reveal the cause of your discomfort. Please discuss your visit and symptoms with Dr. Parada by calling Monday for a follow up appointment. Seek re-evaluation for fever or worsening symptoms. documented in this encounter Medications at Time of Discharge pantoprazole (PROTONIX) 40 mg tablet Take 40 mg by mouth at bedtime. Reported on 10/25/2016 01/13/2020 UNABLE TO FIND Med Name: [id number] documented as of this encounter Discharge Disposition Disposition Code Departure Means Destination Home or Self Care documented in this encounter Procedure Notes * BUS DRIVER/MONITOR, EDWARDO 2 - 12/18/2012 1443 ESTAssociated Order(s): ECG REPORT - SCANNED documented in this encounter ED Notes * Brandie Garcia RN - 12/14/2012 2325 EST Pt ambulatory off unit independently in NAD. picking up pt. * Brandie Garcia RN - 12/14/2012 2311 EST MD Larios to bedside. * Deven Angelo 12/14/2012 2232 EST Blood drawn via saline lock per protocol, green tube(s) sent to lab per order. * Brandie Garcia RN - 12/14/2012 2148 EST Pt continues to resting quielty, NAD. Respirations even, unlabored. Call [facility] in reach. * Brandie Garcia RN - 12/14/20122032 EST Pt resting comfortably, eyes closed. Pt reports some relief after GI cocktail. MD Larios notified. * Brandie Garcia RN - 12/14/2012 1929 EST Pt resting comfortably, NAD. Call [facility]su in reach. * Zhao Larios IV, MD - 12/14/2012 1852 EST DOS: 12/14/2012 Chief Complaint Patient presents with ??? Chest Pain Pt to ED with SSCP since yesterday with some SOB over the past 3-4 days The patient is a 66 y.o. male who presents today with Chest Pain The history is provided by the patient and medical records. Abdominal Pain This is a new problem. The current episode started more than 2 days ago. The problem occurs constantly. The problem has not changed since onset.The pain is associated with an unknown factor. The painis located in the epigastric region. The quality of the pain is aching. The pain is moderate. Pertinent negatives include fever. Nothing aggravates the symptoms. Nothing relieves the symptoms. Past workup does not include GI consult or CT scan. Past workup comments: [facility] His past medical history is significant for PUD and GERD. His past medical history does not include gallstones. Review of Systems Constitutional: Negative for fever. Respiratory: Negative for cough and shortness of breath. Cardiovascular: Positive for chest pain. Negative for palpitations. Gastrointestinal: Positive for abdominal pain. Skin: Negative for rash. Psychiatric/Behavioral: The patient is not nervous/anxious. All other systems reviewed and are negative. Past Medical History Diagnosis Date ??? Hypertension Past Surgical History Procedure Date ??? Shoulder surgery No Known Allergies History Substance Use Topics ??? Smoking status: Never Smoker ??? Smokeless tobacco: Not on file ??? Alcohol Use: 35.0 oz/week 7 Glasses of wine per week No family history on file. Vital Signs Temp: 36 ??C (96.8 ??F) Temp src: Tympanic Pulse: 74 Heart Rate: 65 BPM Cardiac Rhythm: Normal sinus rhythm Resp: 15 SpO2: 98 % BP: 130/74 mmHg BP Device: BP Machine Patient Position: Sitting BP Cuff Location: Left arm O2 Device: None (Room air) Physical Exam Nursing note and vitals reviewed. Constitutional: No distress. HENT: Head: Normocephalic and atraumatic. Eyes: Pupils are equal, round, and reactive to light. Neck: Neck supple. Cardiovascular: Normal rate and intact distal pulses. Pulmonary/Chest: Effort normal and breath sounds normal. No respiratory distress. He has no wheezes. He exhibits no tenderness. Abdominal: Soft. He exhibits no distension. There is no tenderness. Musculoskeletal: He exhibits no edema. Neurological: He is alert. Skin: Skin is warm. Psychiatric: He has a normal mood and affect. Radiology orders: None EKG 12-LEAD Final Result: EKG: NSR, no acute ischemia, ? Hyperacute twaves, no significant ST changes or T-wave abnormalities, independently viewed and interpreted by myself Patient had laboratory tests ordered which were reviewed and interpreted by myself. Please see laboratory results for detailed information. Neg lipase, LFTs, trop; repeat trop neg. Procedures ED Course: A medical screening exam was performed. Pt presents to ED with CP/SOB with exertion as well as CP around meals Referred by outside MD for cards eval EKG unremarkable LFTs, lipase nl No reproducible RUQ pain H/o GERD/ulcers Trop neg Repeat trop neg Slept for bulk of ED stay Unclear etiology, feel most likely GI related Doubt PE in context of no SOB, epigastric pain, no fever, no tachycardia, nl O2 sats F/u PCP Return for worsening Disposition: Discharged The patient's pain was managed to an adequate level weighing risk vs. benefit of further medications. Upon departure from the Emergency Department, the patient's pain was 0 on a zero to ten scale. Condition at departure from the Emergency Department: Stable Discharge Prescriptions New Prescriptions No Discharge Prescriptions for this patient MDM Number of Diagnoses or Management Options Epigastric pain: Diagnosis management comments: 5 Final diagnoses: Epigastric pain PCP: ZHAO PARADA MD 12/19/2012 18:26 * Deven Angelo - 12/14/2012 1852 EST Blood drawn via IV hub per protocol, rainbow tube(s) sent to lab per order. * Kirk Castano - 12/14/2012 1841 EST 12 Lead EKG Performed by Kirk Castano and shown to Zhao Larios IV,*. * Braden Hernandes - 12/14/2012 1831 EST TCALL: [facility] CHEST PAIN, BLOATING, SHORTNESS OF BREATH AND ABNORMAL EKG (LYF). documented in this encounter Plan of Treatment Not on file documented as of this encounter Procedures Procedure Name Priority Date/Time Associated Diagnosis Comments ECG REPORT - SCANNED 12/18/2012 14:43 EST TROPONIN I STAT 12/14/2012 22:05 EST ED/URGENT CARE ADD-ON STAT 12/14/2012 18:55 EST HOLD BLUE TOP Routine 12/14/2012 18:40 EST SCREENING GLUCOSE Routine 12/14/2012 18: 40 EST PROFILE ED CARDIAC PACK STAT 12/14/2012 18:40 EST TROPONIN I Routine 12/14/2012 18:40 EST DIFFERENTIAL Routine 12/14/2012 18:40 EST COMPLETE BLOOD COUNT Routine 12/14/2012 18:40 EST BUN Routine 12/14/2012 18:40 EST MAGNESIUM Routine 12/14/2012 18:40 EST LIPASE Routine 12/14/2012 18:40 EST CREATININE Routine 12/14/2012 18:40 EST CK MB WITH TOTAL CK Routine 12/14/2012 1 8:40 EST HEPATIC FUNCTION PANEL (ALB,ALK PHOS,ALT,AST,DBIL,TOT EDY,TOT PROT) Routine 12/14/2012 18:40 EST ELECTROLYTES Routine 12/14/2012 18:40 EST EKG 12-LEAD STAT 12/14/2012 18:39 EST documented in this encounter Results * ECG REPORT - SCANNED (12/18/2012 14:43 EST) 12/18/2012 14:4 3 EST Narrative 12/18/2012 18:50 EST Procedure Note BUS DRIVER/MONITOR, SCAN 2 - 12/18/2012 14:43 EST us Scan 2 Facility Specialist PROCEDURE/MINOR SURGICAL OR DERABLES Final Result * TROPONIN I (12/14/2012 22:05 EST) Troponin I (ng/mL) <0.034 <0.034 ng/ml [facility] Blood specimen (specimen) 12/14/2012 22:05 EST 12/14/2012 22:35 EST us Zhao Larios MD CHEMISTRY & BLOOD GA S ORDERABLES Final Result Performing Organization Address [facility] Co de Phone Number [facility] [address] [place] [address] * ED/WICC ADD-ON (12/14/2012 18:55 EST) Tests to be added LIPASE,RICARDO ER PANEL [facility] Number for problems [id number] (ED) [facility] 12/14/2012 18:5 5 EST 12/14/2012 19:00 EST us Zhao Larios MD HEMATOLOGY & PF4 ORD ERABLES Final Result Performing Organization Address [facility] de Phone Number [facility] [address] [place] [address] * TROPONIN I (12/14/2012 18:40 EST) Troponin I (ng/mL) <0.034 <0.034 ng/ml [facility] 12/14/2012 18:4 0 EST 12/14/2012 18:57 EST us Zhao Larios MD CHEMISTRY & BLOOD GA S ORDERABLES Final Result Performing Organization Address [facility] de Phone Number [facility] [address] [place] [address] * CK MB WITH TOTAL CK (12/14/2012 18:40 EST) CK 84 0 - 250 U/L [facility] MB 0.83 <4.21 ng/ml [facility] 12/14/2012 18:4 0 EST 12/14/2012 18:57 EST us Zhao Larios MD CHEMISTRY & BLOOD GA S ORDERABLES Final Result [facility] [address] [place] [address] * MAGNESIUM (12/14/2012 18:40 EST) Magnesium 2.0 1.7 - 2.8 mg/dl [facility] 12/14/2012 18:4 0 EST 12/14/2012 18:57 EST us Zhao Larios MD CHEMISTRY & BLOOD GA S ORDERABLES Final Result [facility] [address] [place] [address] * SCREENING GLUCOSE (12/14/2012 18:40 EST) Glucose, Screening 93 70 - 100 mg/dl [facility] 12/14/2012 18:4 0 EST 12/14/2012 18:57 EST us Zhao Larios MD CHEMISTRY & BLOOD GA S ORDERABLES Final Result Performing Organization Address [facility] Co de Phone Number [facility] [address] [place] [address] * CREATININE (12/14/2012 18:40 EST) Creatinine 0.91 0.66 - 1.25 mg/dl [facility] GFR, Calculated >60 >60 ml/min/1.7 3m2 [facility] 12/14/2012 18:4 0 EST 12/14/2012 18:57 EST us Zhao Larios MD CHEMISTRY & BLOOD GA S ORDERABLES Final Result [facility] [address] [place] [address] * BUN (12/14/2012 18:40 EST) BUN 14 10 - 26 mg/dl [facility] 12/14/2012 18:4 0 EST 12/14/2012 18:57 EST us Zhao Larios MD CHEMISTRY & BLOOD GA S ORDERABLES Final Result Performing Organization Address [facility] de Phone Number [facility] [address] [place] [address] * ELECTROLYTES (12/14/2012 18:40 EST) Sodium 142 136 - 145 mEq/L [facility] Potassium 4.5 3.5 - 5.0 mEq/L [facility] Chloride 98 96 - 110 mEq/L [facility] CO2 29 24 - 32 mEq/L [facility] 12/14/2012 18:4 0 EST 12/14/2012 18:57 EST Zhao Larios MD CHEMISTRY & BLOOD GA S ORDERABLES Final Result Performing Organization Address [facility] Phone Number [facility] [address] [place] [address] * HOLD BLUE TOP (12/14/2012 18:40 EST) Hold Blue Top Sample for coagulation will be discarded after 4 hours [facility] 12/14/2012 18:4 0 EST 12/14/2012 18:57 EST Zhao Larios MD LAB INFO SERVICE AND SUPPORT & PHONE RESULT Final Result Performing Organization Address [facility] de Phone Number [facility] [address] [place] [address] * DIFFERENTIAL (12/14/2012 18:40 EST) % Neutrophils 62.6 45.5 - 79.7 % [facility] % Lymphocytes 28.0 15.0 - 46.8 % [facility] % Monocytes 6.7 1.8 - 12.0 % [facility] % Eosinophils 2.1 0.6 - 6.9 % [facility] % Basophils 0.6 0.2 - 1.4 % [facility] ABS Neutrophils 3.60 2.20 - 8.85 K/cmm [facility] ABS Lymphs 1.61 1.09 - 3.30 K/cmm [facility] ABS Monocytes 0.39 0.1 - 0.8 K/cmm [facility] ABS Eosinophils 0.12 0.03 - 0.61 K/cmm [facility] ABS Basophils 0.04 0.01 - 0.11 K/cmm [facility] Type of Diff: Automated [facility] 12/14/2012 18:4 0 EST 12/14/2012 18:57 EST us Zhao Larios MD HEMATOLOGY & PF4 ORD ERABLES Final Result Performing Organization Address City/[facility] Co de Phone Number [facility] [address] [place] [address] * HEMAGRAM (12/14/2012 18:40 EST) WBC 5.75 4.0 - 10.4 K/cmm [facility] RBC 4.66 4.36 - 5.78 M/cmm [facility] Hemoglobin 15.3 13.8 - 17.3 gm/dl [facility] HCT 43.4 39.5 - 50.2 % [facility] MCV 93 81 - 95 fl [facility] MCH 32.9 27.6 - 33.0 pg [facility] MCHC 35.3 32.8 - 36.4 gm/dl [facility] PLT 233 141 - 320 K/cmm [facility] RDW-CV 13.1 11.8 - 14.1 % [facility] 12/14/2012 18:4 0 EST 12/14/2012 18:57 EST us Zhao Larios MD HEMATOLOGY & PF4 ORD ERABLES Final Result Performing Organization Address [facility] Co de Phone Number [facility] [address] [place] [address] * (ABNORMAL) LIVER FUNCTION TESTS (12/14/2012 18:40 EST) Albumin 5.1(H) 3.4 - 4.9 g/dl [facility] Total Protein 8.1 6.5 - 8.3 g/dl [facility] Total Alkaline Phosphatase 77 38 - 126 U/L [facility] ALT 47 21 - 72 U/L [facility] AST 30 15 - 46 U/L [facility] Unconjugated Bilirubin 0.3 0.1 - 1.1 mg/dl [facility] Conjugated Bilirubin 0.0 0.0 - 0.3 mg/dl [facility] Bilirubin, Total 0.6 0.2 - 1.3 mg/dl [facility] 12/14/2012 18:4 0 EST 12/14/2012 18:57 EST Zhao Larios MD CHEMISTRY & BLOOD GA S ORDERABLES Final Result Performing Organization Address [facility] de Phone Number [facility] [address] [place] [address] * LIPASE (12/14/2012 18:40 EST) Lipase 135 0 - 250 U/L [facility] 12/14/2012 18:4 0 EST 12/14/2012 18:57 EST us Zhao Larios MD CHEMISTRY & BLOOD GA S ORDERABLES Final Result Performing Organization Address [facility] Phone Number [facility] [address] [place] [address] * EKG 12-LEAD (12/14/2012 18:39 EST) 12/14/2012 18:3 9 EST Narrative [facility] - 12/17/2012 13:13 EST ?[facility] ? Test Date: ?2012-12-14 Pat Name: ? BARRETT NGO ?Department: ?? ED ? Room: ? AC14 Gender: ? M ?Patient Admitting Clerk: ?? [id number] : ?1945 ? Requested By: ZHAO LARIOS MD Order Number: [id number] ?Reading MD: ?? JERRY ALVARADO MD ? Measurements Intervals ?[facility] ? Rate: ? 65 ? P: ?38 WI: ? 147 ?QRS: ?11 QRSD: ? 87 ? T: ?27 QT: ? 367 ? QTc: ?379 ? Interpretive Statements SINUS RHYTHM No previous ECG available for comparison Electronically Signed On 12-17-12 13:13:24 EST by JERRY ALVARADO MD Procedure Note Jerry Alvarado MD - 12/17/2012 [facility] Test Date: 2012-12-14 Pat Name: BARRETT NGO Department: ED Room: [facility] Gender: M Patient Admitting Clerk: [id number] : 1945 Requested By: ZHAO RALPH Order Number: [id number] Reading MD: JERRY ALVARADO MD Measurements Intervals [facility] Rate: 65 P: 38 WI: 147 QRS: 11 QRSD: 87 T: 27 QT: 367 QTc: 379 Interpretive Statements SINUS RHYTHM No previous ECG available for comparison Electronically Signed On 12-17-12 13:13:24 EST by JERRY ALVARADO MD us Zhao Larios MD CARDIAC ECG ORDERABL ES Final Result [facility] [address] [place] [address] documented in this encounter Visit Diagnoses Diagnosis Epigastric pain- Primary Abdominal pain, epigastric documented in this encounter Administered Medications Inactive Administered Medications - up to 3 most recent administrations Medication Order MAR Action Action Date Dose Rate Site aluminum & magnesium hydroxide-simethicone (MYLANTA-DS) 400-400-40 mg/5 mL suspension 15 mL 15 mL, oral, NOW X1, 1 dose, On Mon12/14/12 at 2014, STAT Given 12/14/2012 20:01 EST 15 mL lidocaine (XYLOCAINE) 2 % viscous solution 15 mL 15 mL, oral, NOW X1, 1 dose, On Mon12/14/12 at 2014, STAT Given 12/14/2012 20:01 EST 15 mL documented in this encounter Active and Recently Administered Medications Times are shown in EST. Scheduled Medication Order 12/12/2012 12/13/2012 12/14/2012 aluminum & magnesium hydroxide-simethicone (MYLANTA-DS) 400-400-40 mg/5 mL suspension 15 mL (COMPLETED)(Linked Group 1) 15 mL, oral, NOW X1, 1 dose, On Mon12/14/12 at 2014, STAT 2000 (Given - Provid er: Brandie Garcia RN) lidocaine (XYLOCAINE) 2 % viscous solution 15 mL (COMPLETED)(Linked Group 1) 15 mL, oral, NOW X1, 1 dose, On Mon12/14/12 at 2014, STAT 2001 (Given - Provid er: Brandie Garcia RN) Linked Groups Order Group 1: lidocaine (XYLOCAINE) 2 % viscous solution 15 mL (COMPLETED)Jump to med 15 mL, oral, NOW X1, 1 dose, On Mon12/14/12 at 2014, STAT And aluminum & magnesium hydroxide-simethicone (MYLANTA-DS) 400-400-40 mg/5 mL suspension 15 mL (COMPLETED)Jump to med 15 mL, oral, NOW X1, 1 dose, On Mon12/14/12 at 2014, STAT documented in this encounter Orders Nursing Count Last Ordered Date First Orde red Date INSERT PERIPHERAL IV 1 12/14/2012 documented in this encounter Care Teams Detail Drafter Relationship Specialty Start Date End Date Zhao Parada MD [address] [place] [id number] PCP - General 03/02/12 07/29/19 documented as of this encounter
--- OUTSIDE RECORDS SUMMARY | 2024-11-26 14:01 | XMS_ITS | Encounter Summary ---
Author Organization [facility] Address [address] [place] [address] Care Team Providers Care Collar Shaper Operator Name Role Phone Darnell Taylor MD Primary Care Provider [phone] Reason for Referral * Vascular Lab (Routine/Next Available) - Closed Specialty Diagnoses / Procedures Referred By Nelia sanford Referred To Contact Diagnoses Abdominal pain, unspecified site Procedures VL MESENTERIC ARTERY DUPLEX Agusto Morris MD Referral ID Status Reason Start Date Expiration Date Visits Re quested Visits Authorized [id number] Closed 01/24/2013 1 1 Reason for Visit * Reason Comments Abdominal Pain New patient visit Encounter Details Date Type Department Care Team (Latest Contact Info) Description 01/24/2013 8:40 EDT Office Visit [facility] Gastroenterology - Main [place] [address] [place], [place] [id number] Dalton Cross MD Abdominal pain, unspecified site (Primary Dx); Dyspepsia and other specified disorders of function of stomach; Bloating Social History Tobacco Use Types Packs/Day Years [...] Sign Reading Time Taken Comments Blood Pressure 128/70 01/24/2013820 EDT Pulse 80 01/24/2013820 EDT Temperature - - Respiratory Rate - - Oxygen Saturation - - Inhaled Oxygen Concentration - - Weight 88 kg (194 lb) 01/24/2013820 EDT Height 170.2 cm (5' 7) 01/24/2013820 EDT Body Mass Index 30.38 01/24/2013820 EDT documented in this encounter Progress Notes * Agusto Morris MD - 01/24/2013826 EDT GI Clinic Note 67 y.o.male New patient visit for pain and bloating with eating. Referred by Sacha COHEN Starting about 3-4 months ago, he began to have pain/discomfort or pressure and bloating with eating. It will begin about 15 minutes after eating. It will last all day and will improve overnight, butnever completely resolve. Will occasionally have nausea if the bloating is severe, but no vomiting.Has been eating less, but has been gaining weight. No one food makes his symptoms worse, though there may be a correlation with how much he eats. Is taking Creon (patient self started). ROS is also positive for occasional LLQ pain and a CT was done which only showed mild fatty liver. Also he does have heartburn, and does take protonix (8 years), though he takes it at bedtime. No fevers, chills. Will occasionally have both constipation and diarrhea. No blood in stool. No weight loss. No swallowing problems. He did have a colonoscopy 1-2 years ago and polyps were found. Of note, in 2004 he was hospitalized with a GOO due to food bolus. EGD was done and was normal (done after the patient vomited up a piece of steak). Does report having significant life stress. 1-2 drinks per night. No tob. No drugs. He has a recent positive TTE and a cath showed only mild disease. Past Medical History Diagnosis Date ??? Hypertension ??? FUENTES (dyspnea on exertion) ??? Chest heaviness ??? Abnormal stress test ??? Acid reflux ??? Snores Past Surgical History Procedure Date ??? Shoulder surgery Family History Problem Relation Age of Onset ??? Heart Attack Brother History Substance Use Topics ??? Smoking status: Former Smoker Quit date: 01/03/1968 ??? Smokeless tobacco: Not on file ??? Alcohol Use: 35.0 oz/week 7 Glasses of wine per week Current Outpatient Prescriptions Medication Sig Dispense Refill ??? Multivitamins with Minerals Tab Take 1 Tab by mouth daily. ??? Wgzewhu-Cukvas-Xhqqlzpu (CREON 5) 124 mg (5,000- 18.7K-16K unit) CpDR Take 1 Cap by mouth daily. ??? simvastatin (ZOCOR) 40 mg tablet Take 1 Tab by mouth every evening. 30 Tab 0 ??? aspirin 81 mg EC tablet Take 81 mg by mouth daily. Instructed to take 01/18-01/21/13 ??? lisinopril-hydrochlorothiazide (PRINZIDE, ZESTORETIC) 20-12.5 mg per tablet Take 1 Tab by mouthdaily. ??? pantoprazole (PROTONIX) 40 mg tablet Take 40 mg by mouth at bedtime. No Known Allergies ROS Full review of systems was negative except as described above. Examination BP 128/70 Pulse 80 Ht 170.2 cm (67) Wt 87.998 kg (194 lb) BMI 30.38 kg/m2 Gen- Well appearing, NAD, A+Ox3, ENT- MMM, op clear Lym- No LAD CVS- RRR, no m/g/r RS- CTAB Abd- Soft, NT, ND, no organomegaly on palpation or percussion, BS+ Extr- Hands normal, no SURESH, good pulses, WWP Skin- No rash Laboratory Reviewed. Imaging: RUQ US Findings: The liver demonstrates diffusely increased echogenicity. An area of decreased echogenicity in the liver is seen, adjacent to the gallbladder, consistent with fatty sparing. The gallbladder is unremarkable. There is no evidence of biliary ductal dilatation. The visualized portions of the pancreatic head and proximal body, and proximal IVC are unremarkable. The proximal abdominal aorta isnot well visualized secondary to overlying bowel gas. There is atherosclerosis in the mid and distal abdominal aorta. There is no evidence of free fluid in the right upper quadrant. The right kidney is unremarkable. Impression: 1. Fatty infiltration of the liver with an area of focal fatty sparing.. CT Abd/Pelvis 07/2012 Technique Pelvis: Immediately after the above preparation, axial images were obtained from the iliac crests to the ischial tuberosities. During the exam, intravenous administration of 100 cc of 370mg% nonionic contrast at the rate of 2 cc/second was administered. Prior to the exam, water soluble rectal contrast was administered by enema. Findings: Visualized portions of the lung bases are clear.No acute bony abnormality is identified, there is considerable degenerative disc disease at lumbosacral junction. The anterior abdominal wall is intact. The liver is diffusely hypodense, consistent with fatty infiltration. The gallbladder, spleen, adrenals, and kidneys are within normal limits. Note is made of bifurcation of the tail of the pancreas, a normal variant. There is partial fatty replacement of the pancreas, especially involving the head. Pancreas otherwise within normal limits, no pancreatic ductal dilatation. Pancreas unchanged from prior. There is no bowel wall thickening or evidence of obstruction. The appendix is small, but otherwise unremarkable. There is no intraperitonealfree fluid or free air. There is no significant diverticular disease. There is mild atheroscleroticcalcification of the aorta and its branches without aneurysmal dilatation. No retroperitoneal adenopathy is identified. The urinary bladder is unremarkable. The prostate is moderately enlarged. Impression: 1. Mild fatty infiltration of the liver. 2. Elevating the bladder base no significant bowel pathology. 3. Mild atherosclerotic disease. 4. The prostate is enlarged, moderate. Esophagram 2009 Findings: Study shows a normally distensible thoracic esophagus with a normal appearing mucosa. There are some tertiary contractions in the lower esophagus, along with resultant stasis and to and fromotion of the contrast material. There is also minimal gastroesophageal reflux. There is no evidence of hiatal hernia. . Impression: 1. Mild esophageal dysmotility. 2. Mild gastroesophageal reflux. Assessment/Plan: 67 yo male with abdominal pain and discomfort, made worse with eating. EGD in 2005 was negative. Esophagram, CT, RUQ US, labs all negative. No reg flag symptoms present. Will obtain a mesenteric doppler study to r/o mesenteric ischemia. Attestation statement: I saw and examined the patient with the resident/fellow. I agree with the findings and plan of care documented in the resident's/fellow's note. MD Agusto Sandoval MD Gastroenterology and Hepatology Fellow 01/24/2013 documented in this encounter Plan of Treatment Not on file documented as of this encounter Procedures Procedure Name Priority Date/Time Associated Diagnosis Comments VL MESENTERIC ARTERY DUPLEX Routine 02/01/2013 9:14 EDT Abdominal pain, unspecified site documented in this encounter Results * VL MESENTERIC ARTERY DUPLEX (02/01/2013 9:14 EDT) Anatomical Region Laterality Modality Other 02/01/2013 9:14 EDT 02/03/2013 8:53 EDT Narrative 02/03/2013 8:53 EDT MESENTERIC ARTERY DUPLEX ULTRASOUND PROCEDURE: ??The celiac, superior mesenteric, splenic, hepatic, and inferior mesenteric arteries are routinely evaluated using 2D, color flow and spectral Dopper. [id number]. ? INDICATION: Abdominal pain. ? HISTORY: ?HPT, [facility]. ? PULSE WAVE DOPPLER FINDINGS Aorta Prox:Sys: ??116 cm/sec Giuliana: ?? 16 cm/sec ? SMA Prox: ??Sys: ??137 cm/sec Giuliana: ?? 17 cm/sec ? SMA Mid: ?? Sys: ??178 cm/sec Giuliana: ?? 20 cm/sec ? SMA Dist: ??Sys: ??206 cm/sec Giuliana: ?? 23 cm/sec ? Celiac: ?Sys: ??124 cm/sec Giuliana: ?? 28 cm/sec ? Splenic: ?? Sys: ??162 cm/sec Giuliana: ?? 46 cm/sec ? Hepatic: ?? Sys: ??108 cm/sec Giuliana: ?? 26 cm/sec ? LOKESH Prox: ??Sys: ??127 cm/sec Giuliana: ?? 14 cm/sec ? Maximum Aortic Diameter: ??2.30 cm IMPRESSION All velocities were within the normal range. Procedure Note 02/03/2013 MESENTERIC ARTERY DUPLEX ULTRASOUND PROCEDURE: The celiac, superior mesenteric, splenic, hepatic, and inferior mesenteric arteries are routinely evaluated using 2D, color flow and spectral Dopper. [id number]. INDICATION: Abdominal pain. HISTORY: HPT, [facility]. PULSE WAVE DOPPLER FINDINGS Aorta Prox:Sys: 116 cm/sec Giuliana: 16 cm/sec SMA Prox: Sys: 137 cm/sec Giuliana: 17 cm/sec SMA Mid: Sys: 178 cm/sec Giuliana: 20 cm/sec SMA Dist: Sys: 206 cm/sec Giuliana: 23 cm/sec Celiac: Sys: 124 cm/sec Giuliana: 28 cm/sec Splenic: Sys: 162 cm/sec Giuliana: 46 cm/sec Hepatic: Sys: 108 cm/sec Giuliana: 26 cm/sec LOKESH Prox: Sys: 127 cm/sec Giuliana: 14 cm/sec Maximum Aortic Diameter: 2.30 cm IMPRESSION All velocities were within the normal range. us Dalton Cross MD IMG VASCULAR ORDERABLES [place] Result documented in this encounter Visit Diagnoses Diagnosis Abdominal pain, unspecified site- Primary Dyspepsia and other specified disorders of function of stomach Bloating Flatulence, eructation, and gas pain documented in this encounter Care Teams Collar Shaper Operator Relationship Specialty Start Date End Date Darnell Taylor MD [address] [place] [id number] PCP - General 03/02/12 07/29/19 documented as of this encounter
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
--- OUTSIDE RECORDS SUMMARY | 2024-11-26 14:01 | XMS_ITS | Encounter Summary ---
Author Organization [facility] Address [address] [place] [address] Care Team Providers Care Scale Reclamation Tender Name Role Phone Darnell Taylor MD Primary Care Provider [phone] Reason for Visit * Reason Onset Date Comments Returning Call 01/10/[address] Quinn Encounter Details Date Type Department Care Team (Late st Contact Info) Description 01/10/[address] [facility] Cardiology - [address] [place] [address] Nile Quinn MD [address] [place] [address] [address] [place] [address] Returning Call (from Dr Quinn) Social History Tobacco Use Types Packs/Day Years [...] Telephone Encounter - Jazmin Daniel NP - 01/10/2013 1202 EDT Pt told he had an abnormal stress test which could predict blockages in his heart. He was given theoption of a stress test or LHC. He will discuss it with his and get back to me. He will start the beta charmaine tomorrow * Telephone Encounter - Jennifer Posadas. - 01/10/2013 1329 EDT Patient returning a call from Dr Quinn regarding a stress test. documented in this encounter Plan of Treatment Not on file documented as of this encounter Visit Diagnoses Not on filedocumented in this encounter Care Teams Scale Reclamation Tender Relationship Specialty Start Date End Date Darnell Taylor MD [address] [place] [id number] PCP - General 03/02/12 07/29/19 documented as of this encounter
--- OUTSIDE RECORDS SUMMARY | 2024-11-26 14:01 | XMS_ITS | Encounter Summary ---
Author Organization [facility] Address [address] [place] [address] Care Team Providers Care Assembly Stock Supervisor Name Role Phone Darnell Taylor MD Primary Care Provider [phone] Reason for Visit * Reason Comments Cardiac Testing Encounter Details Date Type Department Care Team (Late st Contact Info) Description 01/09/2013 14:00 EDT Procedure visit [facility] Cardiology - [address] [place] [address] Nile Quinn MD [address] [place] [address] [address] [place] [address] Nuria Carbone Social History Tobacco Use Types Packs/Day Years [...] on file documented as of this encounter Procedure Notes * ENGLISH FACULTY MEMBER, SCAN 2 - 01/10/2013 1420 EDTAssociated Order(s): STRESS TEST - SCANNED documented in this encounter Plan of Treatment Not on file documented as of this encounter Procedures Procedure Name Priority Date/Time Associated Diagnosis Comments STRESS TEST - SCANNED 01/10/2013 14:20 EDT documented in this encounter Results * STRESS TEST - SCANNED (01/10/2013 14:20 EDT) Anatomical Region Laterality Modality Other 01/10/2013 14:2 0 EDT Narrative 01/10/2013 14:28 EDT Procedure Note ENGLISH FACULTY MEMBER, SCAN 2 - 01/10/2013 14:20 EDT us Scan 2 Geoscience Specialist IMG OTHER IMAGING ORDERABLE S Final Result documented in this encounter Visit Diagnoses Not on filedocumented in this encounter Care Teams Assembly Stock Supervisor Relationship Specialty Start Date End Date Darnell Taylor MD [address] [place] [id number] PCP - General 03/02/12 07/29/19 documented as of this encounter
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
--- OUTSIDE RECORDS SUMMARY | 2024-11-26 14:01 | XMS_ITS | Encounter Summary ---
Author Organization [facility] Address [address] [place] [address] Care Team Providers Care Ham Curer Name Role Phone Darnell Taylor MD Primary Care Provider [phone] Reason for Visit * Reason Onset Date Comments Coronary Artery Disease 01/10/2013 Encounter Details Date Type Department Care Team (Late st Contact Info) Description 01/10/2013 Orders Only [facility] Cardiology - [address] [place] [address] Jazmin Daniel, TABLET TESTER [address] [facility], [address] [place] [address] Social History Tobacco Use Types Packs/Day Years [...] on file documented as of this encounter Ordered Prescriptions Prescription Sig Dispense Quantity Refills Last Filled Start Date End Date clopidogrel (PLAVIX) 75 mg tablet Take 1 Tab by mouth daily. Take 4 tab 4/7 PM and 4/8 AM 5 Tab 0 01/20/2013 01/21/2013 metoprolol XL (TOPROL XL) 25 mg tablet Take 1 Tab by mouth daily for 30 days. 30 Tab 11 01/10/2013 01/21/2013 documented in this encounter Progress Notes * Jazmin Daniel NP - 01/10/2013 1157 EDT Pt will see Dr. Quinn next week and start Metoprolol XL daily documented in this encounter Plan of Treatment Not on file documented as of this encounter Visit Diagnoses Not on filedocumented in this encounter Care Teams Ham Curer Relationship Specialty Start Date End Date Darnell Taylor MD [address] [place] [id number] PCP - General 03/02/12 07/29/19 documented as of this encounter
--- OUTSIDE RECORDS SUMMARY | 2024-11-26 14:01 | XMS_ITS | Encounter Summary ---
Author Organization [facility] Address [address] [place] [address] Care Team Providers Care Software Trainer Name Role Phone Darnell Taylor MD Primary Care Provider [phone] Encounter Details Date Type Department Care Team (Latest Contact Info) Description 01/03/2013 7:09 EDT - 01/03/2013 23:59 EDT Hospital Encounter [facility] [address] [place] [address] Darnell Taylor MD [address] [place] [id number] Discharge Disposition: Home or Self Care Social [...] this encounter Medications at Time of Discharge lisinopril-hydro chlorothiazide (PRINZIDE, ZESTORETIC) 20-12.5 mg per tablet Take 1 Tab by mouth daily. Patient states Lisinopril up to 50 mg 4 pantoprazole (PROTONIX) 40 mg tablet Take 40 mg by mouth at bedtime. Reported on 10/25/2016 0 documented as of this encounter Discharge Disposition Disposition Code Departure Means Destination Home or Self Assisted documented in this encounter Plan of Treatment Not on file documented as of this encounter Visit Diagnoses Not on filedocumented in this encounter Care Teams Software Trainer Relationship Specialty Start Date End Date Darnell Taylor MD [address] [place] [address] PCP - General 03/02/12 07/29/19 documented as of this encounter
--- OUTSIDE RECORDS SUMMARY | 2024-11-26 14:01 | XMS_ITS | Encounter Summary ---
Author Organization [facility] Address [address] [place] [address] Care Team Providers Care Train Gateman Name Role Phone Darnell Taylor MD Primary Care Provider [phone] Reason for Visit * Reason Onset Date Comments Appointment Related 01/16/2013 Encounter Details Date Type Department Care Team (Late st Contact Info) Description 01/16/2013 Telephone [facility] Cardiology - [address] [place] [address] Jazmin Daniel, SEAN [address] [facility], [address] [place] [address] Appointment Related Social History Tobacco Use Types [...] encounter Miscellaneous Notes * Telephone Encounter - Meenu Enrqiue - 01/16/2013 1321 EDT Patient returning Jazmin's call about today's appointment. Patient is scheduled for Cath for 01/21/13 at 7:30AM. Jazmin stated he could cancel today's appointment if he was scheduled for Cath, calling tocancel documented in this encounter Plan of Treatment Not on file documented as of this encounter Visit Diagnoses Not on filedocumented in this encounter Care Teams Train Gateman Relationship Specialty Start Date End Date Darnell Taylor MD [address] [place] [phone] PCP - General 03/02/12 07/29/19 documented as of this encounter
--- OUTSIDE RECORDS SUMMARY | 2024-11-26 14:01 | XMS_ITS | Encounter Summary ---
Author Organization [facility] Address [address] [place] [address] Care Team Providers Care Fish Protector Name Role Phone Zhao Taylor MD Primary Care Provider [phone] Reason for Referral * Cardiology (Routine/Next Available) - Closed Specialty Diagnoses / Procedures Referred By Nelia sanford Referred To Contact Diagnoses Chest pain Procedures LEFT HEART CATH Jazmin Oconnor NP Phone: tel: fax: Referral ID Status Reason Start Date Expiration Date Visits Re quested Visits Authorized [id number] Closed 01/11/2013 1 1 Reason for Visit * Reason Onset Date Comments Chest Pain 01/11/2013 Encounter Details Date Type Department Care Team (Late st Contact Info) Description 01/11/2013 Orders Only [facility] Cardiology - [address] [place] [address] Jazmin Oconnor NP [address] [facility], [facility] [address] [place] [id number] Chest pain (Primary Dx) Social History Tobacco Use Types [...] Procedure Name Priority Date/Time Associated Diagnosis Comments LEFT HEART CATH Routine 01/21/2013 10:01 EDT Chest pain documented in this encounter Results * LEFT HEART CATH (01/21/2013 10:01 EDT) Anatomical Region Laterality Modality Other 01/21/2013 10:0 1 EDT Narrative 01/22/2013 16:32 EDT ?[facility] ? [address] [facility] ??[place] [address] ? [phone] ? [email or web address] ?Final Diagnostic Cardiovascular Catheterization Report ?--- SUMMARY OF RESULTS --- > The ventriculogram revealed normal LV function. > Diagnostic cardiac catheterization was performed without any significant complications. > Coronary angiography revealed mild luminal irregularities only. ? --- PLAN --- > It is recommended that the patient have medical therapy for coronary disease. Would consider ??initiating statin therapy ? --- PATIENT PRESENTATION --- The patient is a 67 year old male with the following indications: ??chest pain, Positive Exercise Tolerance Test, positive stress test, Stable angina . The patient has the following Comorbidities/Risk Factors: ??eGFR of 60 , Family History of Premature CAD, Hypertension. : 1945 ?Sex: male ?Height: 173cm ?Weight: 83.9kg ?BSA: 1.98 Allergies: ??NKA Pre-Puller Machine Values: ??HCT: 42.4 ?Platelets: 213.0 ?Creatinine:.8 ? --- PROCEDURE --- DIAGNOSTIC CARDIAC PROCEDURE Under local anesthesia, the right brachial artery was accessed using standard percutaneous technique. ??A 5F marisela ??catheter was introduced and positioned in the ascending aorta. Selective coronary arteriography was then performed using a 5F marisela ??catheter to engage the left coronary artery and a 5F JR4 catheter to engage the right coronary artery. ??Right and left coronary arteriography were performed in multiple views. Left heart cath was performed according to standard procedure. ??A 5F Pigtail was used to cross the aortic valve and measure pressures in the left ventricle.Using standard procedures, left ventriculography was performed. A 5F Pigtail was used to cross the aortic valve and measure pressures in the left ventricle. ??An injection of Isovue contrast was used for left ventriculography in the 30 degree HANLEY projection. The Largest Arterial Sheath/Cath placed was ??5F The Hemostasis method used was: ? TR BAND Fluoro Time (min): 9.3 ?? The NCDR Recommends a Warning if FT > 30 minutes ?(Please see PhysioLog report for complete list of medications used.) ?--- RESULTS --- HEMODYNAMICS ??Pressures: ?Site ?Systolic ??Diasto ??Mean ?lic ?Ao ?99 ?62 ?78 ?LV ?108 ? 9 ? 12 ?LV ?91 ?3 ? 11 ?Ao ?85 ?51 ?66 The left ventricular end diastolic pressure was normal. There was no gradient detected across the aortic valve. LEFT VENTRICULOGRAPHY The left ventricular function was normal. ??There was no mitral regurgitation. CORONARY ANGIOGRAPHIC FINDINGS Left Main Artery: The Left Main is normal in size and has no significant angiographic lesions. Left Anterior Descending Artery: The LAD is normal in size and has mild luminal irregularities. Mid vessel with 30-40% stenosis Circumflex Artery: The Circumflex is normal in size and has mild luminal irregularities. Right Coronary Artery: The RCA is normal in size and has mild luminal irregularities. Referring Physician: ANASTASIA ESTRADA,JAZMIN Cantor Referring Physician 2: ZHAO TAYLOR Diagnostic Attending: Nile Quinn MD Diagnostic Assisting 1: Whitney Gr MD Diagnostic Assisting 2: Kecia Acuna MD As the attending, supervising physician, I was present for the entire procedure. Signature date/time: 01/22/2013 4:32:46 PM Procedure Note Nile Quinn MD - 01/22/2013 [facility] [place] [address] [phone] [email or web address] Final Diagnostic Cardiovascular Catheterization Report --- SUMMARY OF RESULTS --- > The ventriculogram revealed normal LV function. > Diagnostic cardiac catheterization was performed without anysignificant complications. > Coronary angiography revealed mild luminal irregularities only. --- PLAN --- > It is recommended that the patient have medical therapy for coronary disease. Would consider initiating statin therapy --- PATIENT PRESENTATION --- The patient is a 67 year old male with the following indications: chestpain, Positive Exercise Tolerance Test, positive stress test, Stable angina . The patient has the following Comorbidities/Risk Factors: eGFR of 60 ,Family History of Premature CAD, Hypertension. : 1945 Sex: male Height: 173cm Weight: 83.9kg BSA:1.98 Allergies: NKA Pre-Puller Machine Values: HCT: 42.4 Platelets: 213.0 Creatinine:.8 --- PROCEDURE --- DIAGNOSTIC CARDIAC PROCEDURE Under local anesthesia, the right brachial artery was accessed usingstandard percutaneous technique. A 5F marisela catheter was introduced andpositioned in the ascending aorta. Selective coronary arteriography was then performed using a 5F jackycatheter to engage the left coronary artery and a 5F JR4 catheter to engage theright coronary artery. Right and left coronary arteriography were performedin multiple views. Left heart cath was performed according to standard procedure. A 5FPigtail was used to cross the aortic valve and measure pressures in the left ventricle.Using standard procedures, left ventriculography was performed.A 5F Pigtail was used to cross the aortic valve and measure pressures in theleft ventricle. An injection of Isovue contrast was used for leftventriculography in the 30 degree HANLEY projection. The Largest Arterial Sheath/Cath placed was 5F The Hemostasis method used was: TR BAND Fluoro Time (min): 9.3 The NCDR Recommends a Warning if FT > 30minutes (Please see PhysioLog report for complete list of medicationsused.) --- RESULTS --- HEMODYNAMICS Pressures: Site Systolic Diasto Mean lic Ao 99 62 78 LV 108 9 12 LV 91 3 11 Ao 85 51 66 The left ventricular end diastolic pressure was normal. There was no gradient detected across the aortic valve. LEFT VENTRICULOGRAPHY The left ventricular function was normal. There was no mitralregurgitation. CORONARY ANGIOGRAPHIC FINDINGS Left Main Artery: The Left Main is normal in size and has no significant angiographic lesions. Left Anterior Descending Artery: The LAD is normal in size and has mild luminal irregularities. Mid vessel with 30-40% stenosis Circumflex Artery: The Circumflex is normal in size and has mild luminal irregularities. Right Coronary Artery: The RCA is normal in size and has mild luminal irregularities. Referring Physician: JAZMIN OCONNOR NP Referring Physician 2: ZHAO TAYLOR Diagnostic Attending: Nile Quinn MD Diagnostic Assisting 1: Whitney Gr MD Diagnostic Assisting 2: Kecia Acuna MD As the attending, supervising physician, I was present for the entire procedure. Signature date/time: 01/22/2013 4:32:46 PM us Jazmin Oconnor NP CARDIAC CATH ORDERABLES Fin al Result documented in this encounter Visit Diagnoses Diagnosis Chest pain- Primary Chest pain, unspecified documented in this encounter Care Teams Fish Protector Relationship Specialty Start Date End Date Zhao Taylor MD [address] [place] [id number] PCP - General 03/02/12 07/29/19 documented as of this encounter
--- OUTSIDE RECORDS SUMMARY | 2024-11-26 14:01 | XMS_ITS | Encounter Summary ---
Author Organization [facility] Address [address] [place] [address] Care Team Providers Care Edi Developer Name Role Phone Darnell Taylor MD Primary Care Provider [phone] Reason for Visit * Reason Onset Date Comments Follow-up 01/11/2013 Encounter Details Date Type Department Care Team (Late st Contact Info) Description 01/11/2013 Telephone [facility] Cardiology - [address] [place] [address] Rita Ferrari, GOLF COURSE ARCHITECT [address] [facility], [address] [place] [address] Follow-up Social History Tobacco Use Types Packs/Day Years [...] encounter Miscellaneous Notes * Telephone Encounter - Maki Will - 01/11/2013 0822 EDT Patient calling to talk to rita ferrari about taking an appointment at the hospital.patient discussed some of this yesterday and he is calling to follow up with her today. documented in this encounter Plan of Treatment Not on file documented as of this encounter Visit Diagnoses Not on filedocumented in this encounter Care Teams Edi Developer Relationship Specialty Start Date End Date Darnell Taylor MD [address] [place] [id number] PCP - General 03/02/12 07/29/19 documented as of this encounter
--- OUTSIDE RECORDS SUMMARY | 2024-11-26 14:01 | XMS_ITS | Encounter Summary ---
Author Organization [facility] Address [address] [place] [address] Care Team Providers Care Calker Name Role Phone Zhao Parada MD Primary Care Provider Encounter Details Date Type Department Care Team (Latest Contact Info) Description 01/21/2013 7:25 EDT - 01/21/2013 19:45 EDT Hospital Encounter [facility] Cardiovascular Unit [address] [place] [address] Nile Quinn MD [address] [place] [address] [address] [place] [address] Discharge Disposition: Home or Self Care Social [...] Sign Reading Time Taken Comments Blood Pressure 111/69 01/21/2013 1326 EDT Pulse 57 01/21/2013 1326 EDT Temperature 36.2 ??C (97.2 ??F) 01/21/2013 1324 EDT Respiratory Rate 18 01/21/2013 1326 EDT Oxygen Saturation 100% 01/21/2013 1326 EDT Inhaled Oxygen Concentration - - Weight 83.9 kg (185 lb) 01/17/2013 1500 EDT Height 172.7 cm (5' 8) 01/17/2013 1500 EDT Body Mass Index 28.13 01/17/2013 1500 EDT documented in this encounter Discharge Instructions * Discharge Instructions* Maki GonzalezSHAILESH - 01/21/2013 13:33 EDT Diagnostic Cardiovascular Catheterization Discharge Instructions Department of Cardiology Barrett Ngo, your Procedure was performed by Dr. Quinn ([phone]). You have had a Cardiovascular Catheterization performed through a small incision in the artery in your right wrist. Your artery was closed using the following method: alessandro. Care of your Incision: For your incision, keep the area clean & dry. Leave the sterile dressing in place for 24 hours.After this you may shower but no tub baths, swimming, washing dishes, etc. For 5 days. You may remove your dressing the next day in the shower & wash area gently. Apply a sterile bandage such as a Band Aid to the site after your shower daily until the site heals. DO NOT apply powder or lotion or antibiotic ointment to this area for 5 days. Activity: Unless your physician instructs you otherwise, continue to drink a lot of fluids for the next 24 hours to flush the dye out of your system. Avoid Driving x 24 hours Keep your arm comfortably elevated on pillows today. AVOID Bending or Lifting with your ARM for 48-72 hours. No Heavy lifting (>10 pounds) for one week. Normal Observations: Soreness or tenderness at the site that may last one week. Bruising that could last 2 weeks. Formation of a small lump (dime to quarter size) which may last up to 6 weeks. Call your Physician immediately if you experience any of the following: Fever (temp >101), swelling, redness or signs of infection (including yellow discharge). Persistent and increasing pain at the site of the wound. Numbness or tingling at a point below the wound. Skin Rash If you have not been able to Urinate within 24 hours of the procedure. *If you note any signs of bleeding, such as bulging under the skin (size of a golf ball or larger)put Direct Pressure on the area and Call your Doctor immediately. If bleeding persists after 10 minutes with pressure held call 911. *Please make a follow-up appointment with your Primary Care Physician 2 weeks after your Cardiac Catheterization was performed. You may return to work on . Continue taking the 81mg Aspirin. documented in this encounter Medications at Time of Discharge aspirin 81 mg EC tablet Take 81 mg by mouth at bedtime. Reported on 10/25/2016 Multivitamins with Minerals Tab Take 1 Tab by mouth daily. Reported on 10/25/2016 Uprjwqh-Jlbyqm-X rotease (CREON 5) 124 mg (5,000- 18.7K-16K [...] 01/21/2013 3 documented as of this encounter Ordered Prescriptions Prescription Sig Dispense Quantity Refills Last Filled Start Date End Date simvastatin (ZOCOR) 40 mg tablet Take 1 Tab by mouth every evening. 30 Tab 0 01/21/2013 08/18/2013 documented in this encounter Discharge Disposition Disposition Code Departure Means Destination Home or Self Care documented in this encounter Progress Notes * Maki Gonzalez LPN - 01/21/2013 1043 EDT 1050 Barrett Ngo arrived in CVU via stretcher with head of bed up 30 degrees from CCL post proceedure. Rt arm elevated on pillows. Site dry/intact; no bleeding/hematoma; fingers pink/warm. (+) rt radial pulse. Denies pain, awake, alert, orientated. Orders received, released and acknowledgedby RN. 1110 at bedside; side rails up, call hsu within reach, stretcher in low position. Report to co-signing RNJacob Rhoades LPN 1120 Report to Lizzie Hassan RN for lunch relief; care of pt will be assumed by her. 1215 Report from Sonya Garcia RN; care of pt assumed by me. 1220 Dr. Gr in speaking to pt and . 1232 Radial band deflated 5cc; no bleeding/hematoma noted; fingers pink/warm; (+) rt radial pulse. 1235 Dr. Quinn in speaking to pt and . 1250 Radial band deflated 5cc; no bleeding/hematoma noted; fingers warm/pink; (+) rt radial pulse. 1305 Radial band deflated 4cc; no bleeding/hematoma noted; fingers warm/pink; (+) radial pulse. Band removed; DSD to area. 1325 stepped out. OOB to chair with [employer]. Post procedure instructions given; reviewed with pt. Signed copy with chart. mm 1345 Walked to BR; voided. 1355 IV dc'd intact. mm 1400 Discharged via wheelchair with . [place]. 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 [facility] and oriented to Unit. Reviewed pre-procedure instructions with Barrett Ngo. Patient 4/10 chest pressure pain. Discussed history, med list, allergies, NPO, sedation,& procedure information. All questions answered & patient verbalizes understanding. Pre-cath prep completed. Stretcher in low position with side rails up & call hsu within patient reach. Patient's family is at bedside. 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 He has received 1 sl nitro given as ordered and O2 at 2L. Ligia Rutledge RN. * Ellyn Soriano RN - 01/18/2013 0908 EDT Pt instructed to take Plavix 300mg 01/20/13 and 75mg 01/21/13 prior to cardiac cath. * Ivana Jeffrey MD - 01/18/2013 0814 EDT 67yo male w/ HTN and FH of CAD. Exertional CP Pos ETT LHC +/- PCI Plavix LD night prior S MD Rachele, PhD * Dina Hernandez RN - 01/17/2013 1606 EDT Spoke with pt regarding planned procedure, health history and current medication list. NPO and shower instructions given. Pt instructed to start low dose aspirin 01/18-01/21/13. No transportation issues stated. Pt states a good understanding of plan, states he will call back if he has further questions. documented in this encounter H&P Notes * Nile Quinn MD - 01/21/2013 0713 EDT Cardiology Admitting H&P Admit Date: 01/21/2013 Date of Service: 01/21/2013 PCP: ZHAO PARADA MD Code Status: Full Code Chief Complaint: +VE stress test HPI:(include onset,location,quality,severity, duration, timing, associating symptoms) Exertional dyspnea and chest heaviness in a 67-year-old man with hx HTN and premature CAD in family. Its been progressing over the last few weeks and gets winded after one flight of stairs PMH PSH Past Medical History Diagnosis Date ??? Hypertension ??? FUENTES (dyspnea on exertion) ??? Chest heaviness ??? Abnormal stress test ??? Acid reflux ??? Snores Past Surgical History Procedure Date ??? Shoulder surgery Social History Family History History Substance Use Topics ??? Smoking status: Former Smoker Quit date: 01/03/1968 ??? Smokeless tobacco: Not on file ??? Alcohol Use: 35.0 oz/week 7 Glasses of wine per week Family History Problem Relation Age of Onset ??? Heart Attack Brother Medications Prescriptions prior to admission Medication Sig Dispense Refill ??? Multivitamins with Minerals Tab Take 1 Tab by mouth daily. ??? Lpbhyfs-Efcqtx-Dgafxpvp (CREON 5) 124 mg (5,000- 18.7K-16K unit) CpDR Take 1 Cap by mouth daily. ??? clopidogrel (PLAVIX) 75 mg tablet Take 1 Tab by mouth daily. Take 4 tab 4/7 PM and 4/8 AM 5 Tab0 ??? aspirin 81 mg EC tablet Take 81 mg by mouth daily. Instructed to take 4/5-01/21/13 ??? metoprolol XL (TOPROL XL) 25 mg tablet Take 1 Tab by mouth daily for 30 days. 30 Tab 11 ??? lisinopril-hydrochlorothiazide (PRINZIDE, ZESTORETIC) 20-12.5 mg per tablet Take 1 Tab by mouthdaily. ??? pantoprazole (PROTONIX) 40 mg tablet Take 40 mg by mouth at bedtime. Allergies No Known Allergies Review of Systems: A ten point review of systems was performed. Pertinent positives are listed above in HPI, all others are negative. Objective/Physical Exam: VS: Patient Vitals for the past 8 hrs: BP Resp Temp SpO2 O2 Device 01/21/13 0813 115/53 mmHg 16 36.3 ??C (97.3 ??F) 98 % Room air Pain: Patient Vitals for the past 8 hrs: Numeric Pain Level (Scale 1-10) 01/21/13 0813 4 Weight: Weight : 83.915 kg (185 lb) Body mass index is 28.13 kg/(m^2). Glucose Readings (last 8 hours): No results found for this basename: GLUCOSEFINGE:8 in the last 72 hours Exam: General appearance: alert Neck: no JVD Lungs: clear to auscultation bilaterally Heart: regular rate and rhythm, S1, S2 normal, no murmur, click, rub or gallop Abdomen: soft, non-tender; bowel sounds normal; epigastric hernia palpated Mental Status: awake and alert; oriented to person, place, and time Extremities: extremities warm, atraumatic, no cyanosis or edema Pulses: 2+ and symmetric radial and DP, normal misael's test on the Right Data Review: NA Labs: I have personally reviewed CBC: Lab Results Component Value Date WBC 4.89 01/21/2013 RBC 4.59 01/21/2013 HGB 15.1 01/21/2013 HCT 42.4 01/21/2013 MCV 92 01/21/2013 MCH 32.8 01/21/2013 MCHC 35.5 01/21/2013 PLT 213 01/21/2013 NEUTROABS 3.60 12/14/2012 SEDRATE 10 02/01/2006 BMP: Lab Results Component Value Date NA 138 01/21/2013 K 4.2 01/21/2013 CL 98 01/21/2013 CO2 28 01/21/2013 BUN 12 01/21/2013 CREATININE 0.88 01/21/2013 CALCIUM 9.2 08/14/2012 MG 2.0 12/14/2012 PHOS 2.6 12/14/2004 LABALBU 5.1* 12/14/2012 Coagulation: Lab Results Component Value Date PROTIME 10.8 01/21/2013 INR 0.9 01/21/2013 PTT 31 01/21/2013 Cardiac markers: Lab Results Component Value Date CKMBINDEX Value: Not calculated, normal MB. 12/13/2004 TROPONINI <0.034 12/14/2012 TROPONINI <0.034 12/14/2012 TROPONINI <0.15 12/13/2004 Other Studies: N/A eGFR calculation: GFR, Calculated Date Value Range Status 01/21/2013 >60 >60 ml/min/1.73m2 Final Assessment: Dyspnea with +ve ETT with family hx CAD and HTN Plan : [facility]. On plavix. No contraindication to DAPT, no bleeding hx or allergy to contrast Whitney Gr MD 01/21/2013 9:23 Pt known to me from clinic where concerning CP and equivocal ETT. Appropriate for cath for better definition of possible CAD. 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 year old male with Chest pain. Prior Stress Testing? Yes, with an indeterminate result. Cardiac Medications: On two or more anti anginal medications at the time of catheterization? No Anesthesia: A moderate level of anesthesia/conscious sedation was used in addition to local anesthesia. Access: Right radial artery Procedure: He was brought to the [facility] Cardiac Catheterization Laboratory for the procedure: Diagnostic coronary/graft angiography and LV gram. Closure: TR Band Post-Procedure Condition: The condition of the patient was Good. Complications: None. IV Contrast Total: 120 mL Estimated Blood Loss: Minimal. Unless otherwise noted, there were no specimens removed, cultures obtained, or drains retained. Clinical Trial: is not enrolled in a clinical trial. Diagnostic Cardiac Study Results Left main: normal Left anterior descending: mild irregs , mid vessel 30-40% Left circumflex: Mild irregularities Right coronary artery: Mild irregularities Grafts: nza Left Ventriculography and Hemodynamic Results LVEDP 11 There was no gradient across the aortic valve. Normal LV function Endovascular Study Results None Post-Procedure Diagnostic Conclusion: Medical therapy is indicated. Plan: Aspirin 81mg po daily. Simvistatin 40 mg po daily. Check fasting lipids and LFTs and adjust to LDL < 70. 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 2 01/21/2013 0728 EDT * Scanned Note-Null - 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, 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 - 01/21/2013 0728 EDT documented in this encounter Plan of Treatment Not on file documented as of this encounter Procedures Procedure Name Priority Date/Time Associated Diagnosis Comments PROCEDURE REPORTS - SCANNED 01/28/2013 8:51 EDT INVASIVE CARDIOLOGY REPORT-SCANNED 01/28/2013 8:51 EDT ECG REPORT - SCANNED 01/25/2013 8:39 EDT EKG 12-LEAD Routine 01/21/2013 8:22 EDT PTT STAT 01/21/2013 7:48 EDT PROTIME STAT 01/21/2013 7:48 EDT COMPLETE BLOOD COUNT STAT 01/21/2013 7:48 EDT BUN STAT 01/21/2013 7:48 EDT CREATININE STAT 01/21/2013 7:48 EDT ELECTROLYTES STAT 01/21/2013 7:48 EDT documented in this encounter Results * CARDIAC CATHERIZATION REPORT - SCANNED (01/28/2013 8:51 EDT) 01/28/2013 8:51 EDT Narrative 01/28/2013 9:30 EDT Procedure Note 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, 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 - 01/28/2013 8:51 EDT us 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 Water 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 PROCEDURE/MINOR SURGICAL OR DERABLES Final Result * PROCEDURE REPORTS - SCANNED (01/28/2013 8:51 EDT) 01/28/2013 8:51 EDT Narrative 01/28/2013 9:30 EDT Procedure Note 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 Test Date: ?2013-01-21 Pat Name: ? BARRETT NGO ?Department: ?? CVU ? Room: ? CVU14 Gender: ? M ?Artist'S Model: ?? [id number] : ?1945 ? Requested By: IVANA JEFFREY MD Order Number: [id number] ?Reading : ?? WAGNER HALE MD ? Measurements Intervals ?[place] ? Rate: ? 59 ? P: ?33 [place]: ? 152 ?QRS: ?9 QRSD: ? 85 ? T: ?31 QT: ? 396 ? QTc: ?395 ? Interpretive Statements SINUS BRADYCARDIA POSSIBLE RIGHT VENTRICULAR CONDUCTION DELAY MINIMAL VOLTAGE CRITERIA FOR LVH, CONSIDER NORMAL VARIANT Compared to ECG 12/14/2012 18:39:44 Sinus bradycardia now present Electronically Signed On 01-23-13 08:25:00 EDT by WAGNER HALE MD Procedure Note Wagner Hale MD - 01/23/2013 [facility] Test Date: 2013-01-21 Pat Name: BARRETT NGO Department: CVU Room: [facility] Gender: M Artist'S Model: [id number] : 1945 Requested By: IVANA JEFFREY MD Order Number: [id number] Reading MD: WAGNER HALE MD Measurements Intervals [place] Rate: 59 P: 33 [place]: 152 QRS: 9 QRSD: 85 T: 31 QT: 396 QTc: 395 Interpretive Statements SINUS BRADYCARDIA POSSIBLE RIGHT VENTRICULAR CONDUCTION DELAY MINIMAL VOLTAGE CRITERIA FOR LVH, CONSIDER NORMAL VARIANT Compared to ECG 12/14/2012 18:39:44 Sinus bradycardia now present Electronically Signed On 01-23-13 08:25:00 EDT by WAGNER HALE MD us Ivana Jeffrey MD CARDIAC ECG ORDERABLES Final R esult Performing Organization Address [facility] de Phone Number [facility] [address] [place] [address] * PTT (01/21/2013 7:48 EDT) PTT 31 26 - 37 secs [facility] Comment:Therapeutic Heparin range: 65-100 seconds Blood specimen (specimen) 01/21/2013 7:48 EDT 01/21/2013 8:14 EDT Ivana Jeffrey MD HEMATOLOGY & PF4 ORDERABLES Fi nal Result Performing Organization Address [facility] de Phone Number [facility] [address] [place] [address] * PROTIME (01/21/2013 7:48 EDT) Pro Time 10.8 9.5 - 13.1 secs [facility] I.N.R. 0.9 0.9 - 1.1 Ratio [facility] Comment: Moderate Intensity Coumadin INR = 2.0-3.0 Adjustments in anticoagulant therapy dose should be based upon the INR and NOT the Pro Time. Blood specimen (specimen) 01/21/2013 7:48 EDT 01/21/2013 8:14 EDT Ivana Jeffrey MD HEMATOLOGY & PF4 ORDERABLES Fi nal Result Performing Organization Address City/[facility]/ZIP Co de Phone Number [facility] [address] [place] [address] * HEMAGRAM (01/21/2013 7:48 EDT) WBC 4.89 4.0 - 10.4 K/cmm [facility] RBC 4.59 4.36 - 5.78 M/cmm [facility] Hemoglobin 15.1 13.8 - 17.3 gm/dl [facility] HCT 42.4 39.5 - 50.2 % [facility] MCV 92 81 - 95 fl [facility] MCH 32.8 27.6 - 33.0 pg [facility] MCHC 35.5 32.8 - 36.4 gm/dl [facility] PLT 213 141 - 320 K/cmm [facility] RDW-CV 13.1 11.8 - 14.1 % [facility] Blood specimen (specimen) 01/21/2013 7:48 EDT 01/21/2013 8:14 EDT Ivana Jeffrey MD HEMATOLOGY & PF4 ORDERABLES Fi nal Result Performing Organization Address [facility] Co de Phone Number [facility] [address] [place] [address] * CREATININE (01/21/2013 7:48 EDT) Creatinine 0.88 0.66 - 1.25 mg/dl [facility] GFR, Calculated >60 >60 ml/min/1.7 3m2 [facility] Blood specimen (specimen) 01/21/2013 7:48 EDT 01/21/2013 8:14 EDT Ivana Jeffrey MD CHEMISTRY & BLOOD GAS ORDERABL ES Final Result Performing Organization Address City/[facility] Co de Phone Number [facility] [address] [place] [address] * BUN (01/21/2013 7:48 EDT) BUN 12 10 - 26 mg/dl [facility] Blood specimen (specimen) 01/21/2013 7:48 EDT 01/21/2013 8:14 EDT Ivana Jeffrey MD CHEMISTRY & BLOOD GAS ORDERABL ES Final Result Performing Organization Address [facility] de Phone Number [facility] [address] [place] [address] * ELECTROLYTES (01/21/2013 7:48 EDT) Sodium 138 136 - 145 mEq/L [facility] Potassium 4.2 3.5 - 5.0 mEq/L [facility] Chloride 98 96 - 110 mEq/L [facility] CO2 28 24 - 32 mEq/L [facility] Blood specimen (specimen) 01/21/2013 7:48 EDT 01/21/2013 8:14 EDT Ivana Jeffrey MD CHEMISTRY & BLOOD GAS ORDERABL ES Final Result Performing Organization Address [facility] Phone Number [facility] [address] [place] [address] documented in this encounter Visit Diagnoses Not on filedocumented in this encounter Administered Medications Inactive Administered Medications - up to 3 most recent administrations Medication Order MAR Action Action Date Dose Rate Site nitroGLYCERIN (NITROSTAT) SL tablet 0.4 mg 0.4 mg, sublingual, EVERY 5 MIN PRN, Starting on Mon01/21/13 at 0830, Until Mon01/21/13 at 2149, Chest Pain, Routine Given 01/21/2013 8:36 EDT 0.4 mg sodium chloride 0.9 % (NS) infusion 30 mL/hr, intravenous, CONTINUOUS, Starting on Mon01/18/13 at 0845, Until Mon01/21/13 at 2149, Routine New Bag 01/21/2013 8:12 EDT 30 mL/hr 30 mL/hr documented in this encounter Discontinued Medications Medication Sig Discontinue Reason Start Date End Da te clopidogrel (PLAVIX) 75 mg tablet Take 1 Tab by mouth daily. Take 4 tab 4/7 PM and 4/8 AM 01/20/2013 01/21/2013 metoprolol XL (TOPROL XL) 25 mg tablet Take 1 Tab by mouth daily for 30 days. 01/10/2013 01/21/2013 documented as of this encounter Historical Medications * This list may reflect changes made after this encounter. Multivitamins with Minerals Tab Take 1 Tab by mouth daily. Reported on 10/25/2016 aspirin 81 mg EC tablet Take 81 mg by mouth at bedtime. Reported on 10/25/2016 Vgctqwu-Neitto-O rotease (CREON 5) 124 mg (5,000- 18.7K-16K unit) CpDR Take 1 Cap by mouth daily. 12/16/2013 added in this encounter Active and Recently Administered Medications Times are shown in EDT. Continuous Medication Order 01/19/2013 01/20/2013 01/21/2013 sodium chloride 0.9 % (NS) infusion (CANCELED) 30 mL/hr, intravenous, CONTINUOUS, Starting on Mon01/18/13 at 0845, Until Mon01/21/13 at 2149, Routine 0812 (New Bag - Prov ider: Andressa Rutledge RN) PRN Medication Order 01/19/2013 01/20/2013 01/21/2013 nitroGLYCERIN (NITROSTAT) SL tablet 0.4 mg (CANCELED) 0.4 mg, sublingual, EVERY 5 MIN PRN, Starting on Mon01/21/13 at 0830, Until Mon01/21/13 at 2149, Chest Pain, Routine 0836 (Given - Provid er: Andressa Rutledge RN - Comment: 12/23 chest pressure) documented in this encounter Orders Lab Orders Without Results Count Last Ordered D ate First Ordered Date POCT GLUCOSE 1 01/21/2013 Nursing Count Last Ordered Date First Orde red Date CARDIAC PROCEDURE ACCESS SITE 1 01/21/2013 CARDIAC PROCEDURE CLOSURE DEVICE 1 01/22/20 13 NOTIFY PHYSICIAN (SPECIFY) 2 01/21/2013 NURSING COMMUNICATION 1 01/21/2013 PATIENT AT LOW RISK FOR VTE: RISK OF MECHANICAL PROPHYLAXIS OUTWEIGHS 1 01/21/2013 PATIENT AT LOW RISK FOR VTE: RISK OF PHARMACOLOGIC PROPHYLAXIS OUTWEIG 1 01/21/2013 Discharge Count Last Ordered Date First Orde red Date DISCHARGE PATIENT 1 01/21/2013 documented in this encounter Care Teams Calker Relationship Specialty Start Date End Date Zhao Parada MD [address] [place] [id number] PCP - General 03/02/12 07/29/19 documented as of this encounter
--- OUTSIDE RECORDS SUMMARY | 2024-11-26 14:01 | XMS_ITS | Encounter Summary ---
Author Organization [facility] Address [address] [place] [address] Care Team Providers Care Trial Examiner Name Role Phone Darnell Taylor MD Primary Care Provider [phone] Encounter Details Date Type Department Care Team ([facility] st Contact Info) Description 12/25/2012 Results Only Imaging [facility] [phone] Darnell Taylor MD [address] [place] [phone] Social History Tobacco Use Types Packs/Day Years [...] Priority Date/Time Associated Diagnosis Comments RAD US ABDOMEN ONE ORGAN/QUADRANT 01/03/2013 8:16 EDT documented in this encounter Results * RAD US ABDOMEN ONE ORGAN/QUADRANT (01/03/2013 8:16 EDT) Anatomical Region Laterality Modality Other 01/03/2013 8:16 EDT 01/03/2013 9:49 EDT Narrative 01/03/2013 9:49 EDT US ABD ONE ORG/QUAD ??Jan 03, 2013 08:16:00 AM Signs and Symptoms/Comments: ??Several week history of post prandial RUQ pain and bloating. . Findings: The liver demonstrates diffusely increased echogenicity. An area of decreased echogenicity in the liver is seen, adjacent to the gallbladder, consistent with fatty sparing. ??The gallbladder is unremarkable. ??There is no evidence of biliary ductal dilatation. The visualized portions of the pancreatic head and proximal body, and proximal IVC are unremarkable. ??The proximal abdominal aorta is not well visualized secondary to overlying bowel gas. There is atherosclerosis in the mid and distal abdominal aorta. There is no evidence of free fluid in the right upper quadrant. The right kidney is unremarkable. Impression: 1. ??Fatty infiltration of the liver with an area of focal fatty sparing.. Procedure Note 01/03/2013 US ABD ONE ORG/QUAD Jan 03, 2013 08:16:00 AM Signs and Symptoms/Comments: Several week history of post prandial RUQ pain and bloating. . Findings: The liver demonstrates diffusely increased echogenicity. An area of decreased echogenicity in the liver is seen, adjacent to the gallbladder, consistent with fatty sparing. The gallbladder is unremarkable. There is no evidence of biliary ductal dilatation. The visualized portions of the pancreatic head and proximal body, and proximal IVC are unremarkable. The proximal abdominal aorta is not well visualized secondary to overlying bowel gas. There is atherosclerosis in the mid and distal abdominal aorta. There is no evidence of free fluid in the right upper quadrant. The right kidney is unremarkable. Impression: 1. Fatty infiltration of the liver with an area of focal fatty sparing.. Darnell Taylor MD [facility] US ORDERABLES Final Result documented in this encounter Visit Diagnoses Not on filedocumented in this encounter Care Teams Trial Examiner Relationship Specialty Start Date End Date Darnell Taylor MD [address] [place] [phone] PCP - General 03/02/12 07/29/19 documented as of this encounter
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
--- OUTSIDE RECORDS SUMMARY | 2024-11-26 14:02 | XMS_ITS | Encounter Summary ---
Author Organization [facility] Address [address] [place] [address] Care Team Providers Care Electroslag Welding Machine Operator Name Role Phone Hua Blanton MD Primary Care Provider Unava ilable Encounter Details Date Type Department Care Team (Late st Contact Info) Description 12/14/2004 Results Only [facility] General Surgery - [facility] [address] [place] [address] Jorge Luis Lee MD [address] [place] [address] Social History Tobacco Use Types Packs/Day Years Used Date Smoking Tobacco: Never Assessed Sex and Gender Information Value Date Recorded Sex Assigned at Male 03/18/2022 9:53 EDT Legal Sex Male 18:08 EST Gender Identity Male 09/16/2019 15:02 EST Sexual Orientation Not on file documented as of this encounter Plan of Treatment Not on file documented as of this encounter Procedures Procedure Name Priority Date/Time Associated Diagnosis Comments CREATININE Routine 12/14/2004 5:20 EST COMPLETE BLOOD COUNT AND DIFFERENTIAL Routine 12/14/2004 5:20 EST COMPLETE BLOOD COUNT AND DIFFERENTIAL Routine 12/14/2004 5:20 EST BUN Routine 12/14/2004 5:20 EST PHOSPHORUS Routine 12/14/2004 5:20 EST MAGNESIUM Routine 12/14/2004 5:20 EST CALCIUM Routine 12/14/2004 5:20 EST ELECTROLYTES Routine 12/14/2004 5:20 EST documented in this encounter Results * PHOSPHORUS (12/14/2004 5:20 EST) Phosphorus 2.6 2.5 - 4.5 mg/dl [facility] 12/14/2004 5:20 EST 12/14/2004 6:24 EST Jorge Luis Lee MD CHEMISTRY & BLOOD GAS ORDE RABLES Final Result Performing Organization Address [facility] de Phone Number [facility] [address] [place] [address] * MAGNESIUM (12/14/2004 5:20 EST) Magnesium 1.7 1.7 - 2.8 mg/dl [facility] 12/14/2004 5:20 EST 12/14/2004 6:24 EST Jorge Luis Lee MD CHEMISTRY & BLOOD GAS ORDE RABLES Final Result Performing Organization Address [facility] de Phone Number [facility] [address] [place] [address] * ELECTROLYTES (12/14/2004 5:20 EST) Sodium 138 136 - 145 mEq/L [facility] Potassium 3.7 3.5 - 5.0 mEq/L [facility] Chloride 106 96 - 110 mEq/L [facility] CO2 27 24 - 32 mEq/L [facility] 12/14/2004 5:20 EST 12/14/2004 6:24 EST us Jorge Luis Lee MD CHEMISTRY & BLOOD GAS ORDE RABLES Final Result Performing Organization Address [facility]/ZIP Co de Phone Number [facility] [address] [place] [address] * (ABNORMAL) HEMAGRAM AND DIFFERENTIAL (12/14/2004 5:20 EST) Neutrophils 92.0(H) 45.5 - 79.7 % [facility] Lymphocytes 6.0(L) 15.0 - 46.8 % [facility] Monocytes 2.0 1.8 - 12.0 % [facility] ABS Neutrophils 3.91 2.20 - 8.85 K/cmm [facility] ABS Lymphs 0.26(L) 1.09 - 3.30 K/cmm [facility] ABS Monocytes 0.09(L) 0.1 - 0.8 K/cmm [facility] RBC Morphology Normal [facility] Type of Diff: Manual [facility] 12/14/2004 5:20 EST 12/14/2004 6:24 EST Jorge Luis Lee MD PACKAGES & DNA PROBE ORDER CAITLYN Final Result Performing Organization Address [facility] Co de Phone Number [facility] [address] [place] [address] * CREATININE (12/14/2004 5:20 EST) Pathologist [facility] Creatinine 0.9 0.7 - 1.5 mg/dl [facility] 12/14/2004 5:20 EST 12/14/2004 6:24 EST Jorge Luis Lee MD HISTORICAL LAB FOR SQ LOAD Final Result Performing Organization Address [facility] Co de Phone Number [facility] [address] [place] [address] * HEMAGRAM AND DIFFERENTIAL (12/14/2004 5:20 EST) WBC 4.26 4.0 - 10.4 K/cmm [facility] RBC 4.65 4.36 - 5.78 M/cmm [facility] Hemoglobin 14.7 13.8 - 17.3 gm/dl [facility] HCT 41.6 39.5 - 50.2 % [facility] MCV 90 81 - 95 fl [facility] MCH 31.6 27.6 - 33.0 pg [facility] MCHC 35.3 32.8 - 36.4 gm/dl [facility] PLT 168 141 - 320 K/cmm [facility] RDW-CV 13.2 11.8 - 14.1 % [facility] 12/14/2004 5:20 EST 12/14/2004 6:24 EST Jorge Luis Lee MD PACKAGES & DNA PROBE ORDER CAITLYN Final Result Performing Organization Address [facility] Co de Phone Number [facility] [address] [place] [address] * (ABNORMAL) CALCIUM (12/14/2004 5:20 EST) Calcium 8.0(L) 8.5 - 10.5 mg/dl [facility] Calculated Calcium 9.0 8.5 - 10.5 mg/dl [facility] 12/14/2004 5:20 EST 12/14/2004 6:24 EST Jorge Luis Lee MD CHEMISTRY & BLOOD GAS ORDE RABLES Final Result Performing Organization Address [facility] Co de Phone Number [facility] [address] [place] [address] * BUN (12/14/2004 5:20 EST) BUN 12 10 - 26 mg/dl [facility] 12/14/2004 5:20 EST 12/14/2004 6:24 EST Jorge Luis Lee MD CHEMISTRY & BLOOD GAS ORDE RABBRENNAN Final Result Performing Organization Address [facility] Co de Phone Number [facility] [address] [place] [address] documented in this encounter Visit Diagnoses Not on filedocumented in this encounter Care Teams Electroslag Welding Machine Operator Relationship Specialty Start Date End Date Hua Blanton MD PCP - General 03/12/09 12/15/11 documented as of this encounter
--- OUTSIDE RECORDS SUMMARY | 2024-11-26 14:02 | XMS_ITS | Encounter Summary ---
Author Organization [facility] Address [address] [place] [address] Care Team Providers Care Varnish Thinner Name Role Phone Hua Blanton MD Primary Care Provider Unava ilable Encounter Details Date Type Department Care Team (Latest Contact Info) Description 03/31/2009 8:33 EDT - 03/31/2009 23:59 EDT Hospital Encounter [facility] [id number] [place] [address] Shai Garza MD [address] [place] [phone] Discharge Disposition: Home or Self Care Social History Tobacco Use Types Packs/Day Years Used Date Smoking Tobacco: Never Assessed Sex and Gender Information Value Date Recorded Sex Assigned at Male 03/18/2022 9:53 EDT Legal Sex Male 18:08 EST Gender Identity Male 09/16/2019 15:02 EST Sexual Orientation Not on file documented as of this encounter Discharge Disposition Disposition Code Departure Means Destination Home or Self Jail documented in this encounter OR Notes * OR Surgeon - Shai Garza MD - 03/31/2009 0000 EDT PROCEDURE REPORT PT TYPE: OP SERVICE DATE: 03/31/2009 SURGEON: Shai Garza MD PRUNE WASHER: PREOPERATIVE DIAGNOSIS Left long trigger finger. POSTOPERATIVE DIAGNOSIS Left long trigger finger. PROCEDURE Left long trigger release ANESTHESIA Local. FINDINGS Minimal synovitis of the tendon sheath. NARRATIVE With the patient under adequate local infiltration anesthesia the arm was prepped and draped free in the usual sterile fashion. An oblique incision made over the first donavan. Dissection down to the donavan which was incised longitudinally allowing free excursion of the tendon. The wound was then irr igated and closed with 5-0 nylon. Soft dressing applied. Patient discharged home to be followed as an outpatient. Unless otherwise noted, there were no complications, no blood loss, cultures obtained, specimens removed, or drains retained. ESTIMATED BLOOD LOSS FLUIDS SPECIMENS COMPLICATIONS Shai Garza MD - Shai Garza MD A - [facility] Job ID: [id number] Document ID: [id number] cc: Hua Blanton MD documented in this encounter Miscellaneous Notes * Scanned Note-Null - Inpatient, Physician - 04/08/2009 1645 EDT * Scanned Note-Null - Inpatient, Physician - 04/08/2009 1645 EDT documented in this encounter Plan of Treatment Not on file documented as of this encounter Visit Diagnoses Not on filedocumented in this encounter Care Teams Varnish Thinner Relationship Specialty Start Date End Date Hua Blanton MD PCP - General 03/12/09 12/15/11 documented as of this encounter
--- OUTSIDE RECORDS SUMMARY | 2024-11-26 14:02 | XMS_ITS | Encounter Summary ---
Author Organization [facility] Address [address] [place] [address] Care Team Providers Care Customer Associate Name Role Phone Unavailable Primary Care Provider Unavailabl e Encounter Details Date Type Department Care Team (Late st Contact Info) Description 03/07/2006 10:32 EDT Hospital Encounter [facility] [address] [place] [address] Randy Booth MD [address] [place] [address], [address] [place] [phone] Social History Tobacco Use Types Packs/Day Years [...]
--- OUTSIDE RECORDS SUMMARY | 2024-11-26 14:02 | XMS_ITS | Encounter Summary ---
Author Organization [facility] Address [address] [place] [address] Care Team Providers Care Hygiene Coordinator Name Role Phone Hua Blanton MD Primary Care Provider Unava ilable Encounter Details Date Type Department Care Team (Latest Contact Info) Description 11/11/2009 9:05 EST - 11/11/2009 23:59 EST Hospital Encounter [facility] - Other [address] [place] [address] Hua Blanton MD Discharge Disposition: Auto Discharge Social History [...] Destination Auto Discharge documented in this encounter Plan of Treatment Not on file documented as of this encounter Visit Diagnoses Not on filedocumented in this encounter Care Teams Hygiene Coordinator Relationship Specialty Start Date End Date Hua Blanton MD PCP - General 03/12/09 12/15/11 documented as of this encounter
--- OUTSIDE RECORDS SUMMARY | 2024-11-26 14:02 | XMS_ITS | Encounter Summary ---
Author Organization [facility] Address [address] [place] [address] Care Team Providers Care Hand Plate Stacker Name Role Phone Unavailable Primary Care Provider Unavailabl e Encounter Details Date Type Department Care Team (Late st Contact Info) Description 07/05/2005 18:09 EDT Hospital Encounter [facility] - Other [address] [place] [address] Hua Blanton MD Social History Tobacco Use Types Packs/Day Years [...] Associated Diagnosis Comments COMPLETE BLOOD COUNT Routine 07/05/2005 9:50 EDT PSA SCREEN Routine 07/05/2005 9:50 EDT LIPID PROFILE (INCLUDES CHOLESTEROL, TRIGLYCERIDES, HDL, LDL) Routine 07/05/2005 9:50 EDT COMPREHENSIVE METABOLIC PANEL (CMP) Routine 07/05/2005 9:50 EDT documented in this encounter Results * (ABNORMAL) PSA SCREEN (07/05/2005 9:50 EDT) Pathologist [facility] [place] PSA 3.6(H) 0 - 3.5 ng/ml [facility] Comment: Serum PSA concentration should not be interpreted as absolute evidence for the presence or absence of malignant disease. Assayed utilizing [employer] chemiluminescent technology. Values obtained by using different assay methods cannot be used interchangeably. 07/05/2005 9:50 EDT 07/05/2005 15:31 EDT Hua Blanton MD CHEMISTRY & BLOOD GAS ORDERA BLES Final Result Performing Organization Address [facility] de Phone Number [facility] [address] [place] [address] * LIPID PROFILE (INCLUDES CHOLESTEROL, TRIGLYCERIDES, HDL, LDL) (07/05/2005 9:50 EDT) Pathologist [facility] [place] Cholesterol 200 mg/dl [facility] Comment: Desirable:<200 Borderline:200-239 High Risk:>iq=010 Triglycerides 146 35 - 160 mg/dl [facility] HDL 63 mg/dl [facility] Comment: Highly Desirable:>60 Desirable:35-60 High Risk:<35 LDL, Calculated 108 mg/dl [facility] Comment: Desirable:<130 Borderline:130-159 High Risk:>ol=043 Chol/HDL Ratio 3.2 [facility] Fasting? Yes [facility] 07/05/2005 9:50 EDT 07/05/2005 15:31 EDT Hua Blanton MD CHEMISTRY & BLOOD GAS ORDERA BLES Final Result Performing Organization Address [facility] de Phone Number [facility] [address] [place] [address] * COMPREHENSIVE METABOLIC PANEL (07/05/2005 9:50 EDT) Potassium 4.2 3.5 - 5.0 mEq/L [facility] Sodium 141 136 - 145 mEq/L [facility] Chloride 103 96 - 110 mEq/L [facility] CO2 30 24 - 32 mEq/L [facility] Total Alkaline Phosphatase 62 38 - 126 U/L [facility] Bilirubin, Total 0.5 0.2 - 1.3 mg/dl [facility] AST 33 15 - 46 U/L [facility] ALT 56 21 - 72 U/L [facility] Albumin 4.2 3.4 - 4.9 g/dl [facility] Total Protein 7.1 6.5 - 8.3 g/dl [facility] Creatinine 1.0 0.7 - 1.5 mg/dl [facility] BUN 11 10 - 26 mg/dl [facility] Calcium 9.6 8.5 - 10.5 mg/dl [facility] Calculated Calcium 9.8 8.5 - 10.5 mg/dl [facility] Glucose, Serum 104 70 - 110 mg/dl [facility] Fasting? Yes [facility] Albumin/Globulin Ratio 1.4 [facility] 07/05/2005 9:50 EDT 07/05/2005 15:31 EDT Hua Blanton MD CHEMISTRY & BLOOD GAS ORDERA BLES Final Result [facility] [address] [place] [address] * HEMAGRAM (07/05/2005 9:50 EDT) WBC 4.21 4.0 - 10.4 K/cmm [facility] RBC 4.69 4.36 - 5.78 M/cmm [facility] Hemoglobin 14.9 13.8 - 17.3 gm/dl [facility] HCT 42.5 39.5 - 50.2 % [facility] MCV 91 81 - 95 fl [facility] MCH 31.8 27.6 - 33.0 pg [facility] MCHC 35.1 32.8 - 36.4 gm/dl [facility] PLT 220 141 - 320 K/cmm [facility] RDW-CV 12.7 11.8 - 14.1 % [facility] 07/05/2005 9:50 EDT 07/05/2005 15:31 EDT us Hua Blanton MD HEMATOLOGY & PF4 ORDERABLES Final Result [facility] [address] [place] [address] documented in this encounter Visit Diagnoses Not on filedocumented in this encounter Additional Health Concerns Infection Onset Date Last Indicated Resolved Time R/O COVID-19 04/15/2020 04/15/2020 04/20/2020 22:1 6 EDT documented as of this encounter
--- OUTSIDE RECORDS SUMMARY | 2024-11-26 14:02 | XMS_ITS | Encounter Summary ---
Author Organization [facility] Address [address] [place] [address] Care Team Providers Care Automobile Upholsterer Apprentice Name Role Phone Hua Blanton MD Primary Care Provider Unava ilable Encounter Details Date Type Department Care Team (Late st Contact Info) Description 11/16/2009 Orders Only [facility] [phone] Hua Blanton MD Social History Tobacco Use [...] Name Priority Date/Time Associated Diagnosis Comments FL ESOPHAGRAM (BARIUM SWALLOW) 11/17/2009 9:42 EST documented in this encounter Results * FL ESOPHAGRAM (11/17/2009 9:42 EST) Anatomical Region Laterality Modality Other 11/17/2009 9:42 EST 11/17/2009 14:49 EST Narrative 11/17/2009 14:49 EST FL ESOPHAGRAM ??Nov 17, 2009 09:42:00 AM Clinical History/Comments: GERD,discomfort. Comparison: None Esophagram Single and double-contrast views of the thoracic esophagus ??were obtained. Findings: Study shows a normally distensible thoracic esophagus with a normal appearing mucosa. There are some tertiary contractions in the lower esophagus, along with resultant stasis and to and fro motion of the contrast material. There is also minimal gastroesophageal reflux. There is no evidence of hiatal hernia. . Impression: 1. Mild esophageal dysmotility. 2. Mild gastroesophageal reflux. I have personally reviewed the images and the above interpretation and agree with the findings. Procedure Note Ye Juan MD / Ye Juan MD / Ye Juan MD - 11/17/2009 FL ESOPHAGRAM Nov 17, 2009 09:42:00 AM Clinical History/Comments: GERD,discomfort. Comparison: None Esophagram Single and double-contrast views of the thoracic esophagus were obtained. Findings: Study shows a normally distensible thoracic esophagus with a normal appearing mucosa. There are some tertiary contractions in the lower esophagus, along with resultant stasis and to and fro motion of the contrast material. There is also minimal gastroesophageal reflux. There is no evidence of hiatal hernia. . Impression: 1. Mild esophageal dysmotility. 2. Mild gastroesophageal reflux. I have personally reviewed the images and the above interpretation and agree with the findings. us Hua Blanton MD IMG FLUOROSCOPY ORDERABLES F inal Result documented in this encounter Visit Diagnoses Not on filedocumented in this encounter Care Teams Automobile Upholsterer Apprentice Relationship Specialty Start Date End Date Hua Blanton MD PCP - General 03/12/09 12/15/11 documented as of this encounter
--- OUTSIDE RECORDS SUMMARY | 2024-11-26 14:02 | XMS_ITS | Encounter Summary ---
Author Organization [facility] Address [address] [place] [address] Care Team Providers Care Broker Agricultural Produce Name Role Phone Kami Cates MD Primary Care Provider Unava ilable Encounter Details Date Type Department Care Team (Late st Contact Info) Description 01/21/2009 Before PRISM Converted Visit (Maple) [facility] - Maple conversion [address] [place] [address] Matty Renee MD [address] [place] [id number] Social History Tobacco Use Types Packs/Day Years Used Date Smoking Tobacco: Never Assessed Sex and Gender Information Value Date Recorded Sex Assigned at Male 03/18/2022 9:53 EDT Legal Sex Male 18:08 EST Gender Identity Male 09/16/2019 15:02 EST Sexual Orientation Not on file documented as of this encounter Procedure Notes * Matty Renee MD - 11/16/2009 2324 EST [facility] Colonoscopy Procedure Report Physician: MATTY RENEE MD Referring Physician: KAMI CATES MD Exam Date:01/21/2009 Introduction: A 63 year old male patient presents for an outpatient Colonoscopy ?? Screening for personal history of polyps (V12.72). Consent: The benefits, risks, and alternatives to the procedure were discussed and informed consentwas obtained from the patient. Preparation: pulse oximetry and blood pressure were monitored throughout the procedure. ASA Classification: Class 1 - Patient has no organic, physiologic, biochemical, or psychiatric disturbance. Medications: ?? Demerol 75 mg IV before the procedure ?? Versed 3 mg IV before the procedure Rectal Exam: Normal rectal exam. Procedure: The colonoscope was passed through the anus under direct visualization and advanced withease to the terminal ileum, confirmed by appendiceal orifice, cecal strap (kobuk's foot), and ileocecal valve. The scope was withdrawn and the mucosa was carefully examined. The quality of the preparat ion was good. The views were good. The patient's toleration of the procedure was good. Findings: 2 diminutive sessile colons polyps were found and removed with the Bx forceps - 1 in the cecum and 1 in the rectosigmoid junction. There were rare, uncomplicated, sigmoid diverticula. Estimated Blood Loss: There was NO BLOOD LOSS during the procedure. Unplanned Events: There were no unplanned events. Summary: ?? diminutive sessile colons polyps were found and removed with the Bx forceps - 1 in the cecum and1 in the rectosigmoid junction. There were rare, uncomplicated, sigmoid diverticula. Recommendations: ?? Colonoscopy recommended in 5 year.patient will be sent a reminder letter. Performed By: The procedure was performed by and Dr. Matty Renee. electronically signed by Dr. MATTY RENEE MD on 01/21/2009 at 13:51 [facility] Document ID: [id number] documented in this encounter Plan of Treatment Not on file documented as of this encounter Visit Diagnoses Not on filedocumented in this encounter Care Teams Broker Agricultural Produce Relationship Specialty Start Date End Date Kami Cates MD PCP - General 03/12/09 12/15/11 documented as of this encounter
--- OUTSIDE RECORDS SUMMARY | 2024-11-26 14:02 | XMS_ITS | Encounter Summary ---
Author Organization [facility] Address [address] [place] [address] Care Team Providers Care Data Network Architect Name Role Phone Hua Blanton MD Primary Care Provider Unava ilable None, Provider Primary Care Provider Unavailabl e Darnell Taylor MD Primary Care Provider [phone] Darnell Taylor MD Primary Care Provider [phone] Lasha Angelo MD Primary Care Provider [phone] Sangita Nolasco MD Primary Care Provider [phone] Encounter Details Date Type Department Care Team (Late st Contact Info) Description 12/13/2004 Before PRISM Converted Visit (Maple) [facility] - Maple conversion [address] [place] [address] Dalton Rodriguez MD [address] [place] [address] Social History Tobacco Use Types Packs/Day Years [...] documented as of this encounter Care Teams Data Network Architect Relationship Specialty Start Date End Date Hua Blanton MD PCP - General 03/12/09 12/15/11 None, Provider PCP - General 12/16/11 03/01/12 Darnell Taylor MD [address] [place] [address] PCP - General 03/02/12 07/29/19 Darnell Taylor MD [address] [place], [place] [address] PCP - General 07/30/19 01/08/20 Lasha Angelo MD [address] [place], [place] [address] PCP - General Family Medicine - Primary Care 01/09/20 06/23/21 Sangita Nolasco MD [address] [place], [place] [address] PCP - General 06/24/21 documented as of this encounter
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
--- OUTSIDE RECORDS SUMMARY | 2024-11-26 14:02 | XMS_ITS | Encounter Summary ---
Author Organization [facility] Address [address] [place] [address] Care Team Providers Care Dean Of Women Name Role Phone Hua Blanton MD Primary Care Provider Unava ilable Encounter Details Date Type Department Care Team (Late st Contact Info) Description 05/24/2011 Abstract [facility] [address] [facility] [place] [address] Hua Blanton MD Social History Tobacco Use Types Packs/Day Years Used Date Smoking Tobacco: Never Alcohol Use Standard Drinks/Week Comments Not Asked 0 (1 standard drink = 0.6 oz [...] Diagnoses Not on filedocumented in this encounter Historical Medications * This list may reflect changes made after this encounter. pantoprazole (PROTONIX) 40 mg tablet Take 40 mg by mouth at bedtime. Reported on 10/25/2016 01/13/2020 added in this encounter Care Teams Dean Of Women Relationship Specialty Start Date End Date Hua Blanton MD PCP - General 03/12/09 12/15/11 documented as of this encounter
--- OUTSIDE RECORDS SUMMARY | 2024-11-26 14:02 | XMS_ITS | Encounter Summary ---
Author Organization [facility] Address [address] [place] [address] Care Team Providers Care Movable Bulkhead Installer Name Role Phone None, Provider Primary Care Provider Unavailabl e Reason for Visit * Reason Onset Date Comments Appointment Related 02/22/[address] for 03/02 ckin 11am for an 11:30 at [facility] Encounter Details Date Type Department Care Team (Late st Contact Info) Description 02/22/2012 Telephone [facility] Neurology - [address] [id number] Alyson aHrden MD [address] [place] [address] [place] [address] Appointment Related (lft msg with CT for 03/02 ckin 11am for an 11:30 at [facility]) Social History Tobacco Use Types Packs/Day Years [...] encounter Miscellaneous Notes * Telephone Encounter - Mary Prince - 02/22/2012 0938 EDT lft msg with CT for 03/02 ckin 11am for an 11:30 at [facility] documented in this encounter Plan of Treatment Not on file documented as of this encounter Visit Diagnoses Not on filedocumented in this encounter Care Teams Movable Bulkhead Installer Relationship Specialty Start Date End Date None, Provider PCP - General 12/16/11 03/01/12 documented as of this encounter
--- OUTSIDE RECORDS SUMMARY | 2024-11-26 14:02 | XMS_ITS | Encounter Summary ---
Author Organization [facility] Address [address] [place] [address] Care Team Providers Care Tax Director Name Role Phone Unavailable Primary Care Provider Unavailabl e Encounter Details Date Type Department Care Team (Late st Contact Info) Description 12/31/2004 11:00 EST - 12/31/2004 11:59 EST Hospital Encounter [facility] [address] [place] [address] Jorge Luis Lee MD [address] [place] [address] Discharge Disposition: Auto Discharge Social History Tobacco [...] Procedure Name Priority Date/Time Associated Diagnosis Comments CT ABDOMEN, PELVIS W CONTRAST Routine 12/31/2004 12:34 EST documented in this encounter Results * CT ABDOMEN, PELVIS W CONTRAST (12/31/2004 12:34 EST) Anatomical Region Laterality Modality Other 12/31/2004 12:3 4 EST Narrative 06/11/2009 15:[address] ??H/O ABD PAIN - BLOATING ?? DIVERTICULOSIS ??R/O DIVERTICULITIS, OTHER ABNORMALITIES ??BCBS ??[place] FAX [address] CT ABDOMEN AND PELVIS 12/31/04 CLINICAL HISTORY: abdominal pain and bloating, diverticulosis, rule out diverticulitis or any pathology. COMPARISON: none TECHNIQUE ABDOMEN: Prior to the examination, the patient was given oral and rectal contrast. During the intravenous administration of 150 cc of 300 mg% nonionic contrast at a rate of 2 cc/second, helical images were obtained from the domes of the diaphragms to the iliac crests. TECHNIQUE PELVIS: Immediately after the above preparation, axial images were obtained from the iliac crests to the ischial tuberosities. FINDINGS: Bibasilar dependent atelectasis is present with a small hiatal hernia. The liver, gallbladder, spleen, both kidneys, both adrenal glands and pancreas show no pathology. Stool in the sigmoid and descending colon, but opacified bowel shows no pathology. The prostate measures 58 x 35mm in largest dimension. The urinary bladder shows no pathology. Scattered aortic atherosclerosis is present. No pathological abdominal or pelvic lymphadenopathy is evident. Bone windows show scattered degenerative disease of the lower lumbar spine and hips. IMPRESSION: No CT findings to explain the patient's symptoms. D 12/31/04 T 01/03/05 /lizzette Procedure Note Luis A Kirkland MD / Rayo Villalobos MD - 06/11/[address] H/O ABD PAIN - BLOATING DIVERTICULOSIS R/O DIVERTICULITIS, OTHER ABNORMALITIES BCBS [place] FAX [address]82 CT ABDOMEN AND PELVIS 12/31/04 CLINICAL HISTORY: abdominal pain and bloating, diverticulosis, rule out diverticulitis or any pathology. COMPARISON: none TECHNIQUE ABDOMEN: Prior to the examination, the patient was given oral and rectal contrast. During the intravenous administration of 150 cc of 300 mg% nonionic contrast at a rate of 2 cc/second, helical images were obtained from the domes of the diaphragms to the iliac crests. TECHNIQUE PELVIS: Immediately after the above preparation, axial images were obtained from the iliac crests to the ischial tuberosities. FINDINGS: Bibasilar dependent atelectasis is present with a small hiatal hernia. The liver, gallbladder, spleen, both kidneys, both adrenal glands and pancreas show no pathology. Stool in the sigmoid and descending colon, but opacified bowel shows no pathology. The prostate measures 58 x 35mm in largest dimension. The urinary bladder shows no pathology. Scattered aortic atherosclerosis is present. No pathological abdominal or pelvic lymphadenopathy is evident. Bone windows show scattered degenerative disease of the lower lumbar spine and hips. IMPRESSION: No CT findings to explain the patient's symptoms. D 12/31/04 T 01/03/05 /lizzette Jorge Luis Lee MD IMG CT ORDERABLES Final Re sult documented in this encounter Visit Diagnoses Not on filedocumented in this encounter
--- OUTSIDE RECORDS SUMMARY | 2024-11-26 14:02 | XMS_ITS | Encounter Summary ---
Author Organization [facility] Address [address] [place] [address] Care Team Providers Care Field Service Analyst Name Role Phone Unavailable Primary Care Provider Unavailabl e Encounter Details Date Type Department Care Team (Latest Contact Info) Description 07/15/2004 13:00 EDT Hospital Encounter [facility] - Other [address] [place] [address] Hua Blanton MD Discharge Disposition: Auto Discharge [...] Procedure Name Priority Date/Time Associated Diagnosis Comments ABDOMEN AP 1 VIEW Routine 12/13/2004 19: 23 EST ACUTE ABDOMEN SERIES Routine 12/13/2004 18:32 EST documented in this encounter Results * ABDOMEN AP 1 VIEW (12/13/2004 19:23 EST) Anatomical Region Laterality Modality Other 12/13/2004 19:2 3 EST Narrative 06/12/2009 12:27 EDT S/P VOMITING R/O GASTRIC BUBBLE, DISTENTION ABDOMEN 12/13/04 FINDINGS: When compared to the prior examination the gastric air bubble is now more anatomically positioned, although this is difficult to evaluate as the lower chest is not included on the radiograph. Air is present throughout the colon. The bones are unremarkable. By history the patient has vomited a large piece of meat experiencing relief from the previously described abdominal distention and discomfort. If there is a concern regarding the possibility of transient gastric outlet obstruction with food impaction, further evaluation of the upper G.I. tract is recommended to exclude an underlying pathologic lesion. /lissette Procedure Note Ophelia Hernandez MD - 06/12/2009 S/P VOMITING R/O GASTRIC BUBBLE, DISTENTION ABDOMEN 12/13/04 FINDINGS: When compared to the prior examination the gastric air bubble is now more anatomically positioned, although this is difficult to evaluate as the lower chest is not included on the radiograph. Air is present throughout the colon. The bones are unremarkable. By history the patient has vomited a large piece of meat experiencing relief from the previously described abdominal distention and discomfort. If there is a concern regarding the possibility of transient gastric outlet obstruction with food impaction, further evaluation of the upper G.I. tract is recommended to exclude an underlying pathologic lesion. lissette Jennifer Gibbons MD IMG DIAGNOSTIC IMAGING ORDERABL ES Final Result * ACUTE ABDOMEN SERIES (12/13/2004 18:32 EST) Anatomical Region Laterality Modality Other 12/13/2004 18:3 2 EST Impressions 06/12/2009 12:27 EDT IMPRESSION: 1. No evidence of free air. 2. Marked abnormal bowel gas pattern with multiple air-fluid levels as well as marked distention of the stomach. /sandra Narrative 06/12/2009 12:27 EDT ABD DISTENTION , INCREASED PAIN R/O FREE AIR OBST. ACUTE ABDOMINAL SERIES: 12/13/04 FINDINGS: Right chest, supine abdomen, and right side up decubitus view of the abdomen are obtained. The cardiomediastinal silhouette, lung parenchyma and pleura are unremarkable. There does appear to be marked gaseous distention of the stomach. No free air beneath the hemidiaphragm is seen. On the supine view of the abdomen, contrast is present in the transverse colon and right colon; otherwise, there is a relative paucity of bowel gas throughout the abdominal peritoneal cavity including the rectum. The bones are unremarkable. On the left lateral decubitus view of the chest, there is no evidence of free air, but there are multiple air-fluid levels in the mid abdomen and an air-fluid level in what appears to be the stomach (which appears very distended with fluid). Procedure Note Ophelia Hernandez MD - 06/12/2009 ABD DISTENTION , INCREASED PAIN R/O FREE AIR OBST. ACUTE ABDOMINAL SERIES: 12/13/04 FINDINGS: Right chest, supine abdomen, and right side up decubitus view of the abdomen are obtained. The cardiomediastinal silhouette, lung parenchyma and pleura are unremarkable. There does appear to be marked gaseous distention of the stomach. No free air beneath the hemidiaphragm is seen. On the supine view of the abdomen, contrast is present in the transverse colon and right colon; otherwise, there is a relative paucity of bowel gas throughout the abdominal peritoneal cavity including the rectum. The bones are unremarkable. On the left lateral decubitus view of the chest, there is no evidence of free air, but there are multiple air-fluid levels in the mid abdomen and an air-fluid level in what appears to be the stomach (which appears very distended with fluid). IMPRESSION IMPRESSION: 1. No evidence of free air. 2. Marked abnormal bowel gas pattern with multiple air-fluid levels as well as marked distention of the stomach. /sandra us Jennifer Gibbons MD IMG DIAGNOSTIC IMAGING ORDERABL ES Final Result documented in this encounter Visit Diagnoses Not on filedocumented in this encounter
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
--- OUTSIDE RECORDS SUMMARY | 2024-11-26 14:02 | XMS_ITS | Encounter Summary ---
Author Organization [facility] Address [address] [place] [address] Care Team Providers Care Registration Specialist Name Role Phone Hua Blanton MD Primary Care Provider Unava ilable None, Provider Primary Care Provider Unavailabl e Darnell Taylor MD Primary Care Provider [phone] Darnell Taylor MD Primary Care Provider [phone] Lasha Angelo MD Primary Care Provider [phone] Sangita Nolasco MD Primary Care Provider [phone] Encounter Details Date Type Department Care Team (Late st Contact Info) Description 12/13/2004 Before PRISM Converted Visit (Maple) [facility] - Maple conversion [address] [place] [address] Dalton Rodriguez MD [address] [place] [address] Social History Tobacco Use Types Packs/Day Years [...] Priority Date/Time Associated Diagnosis Comments CREATININE Routine 12/13/2004 18:19 EST HOLD SST Routine 12/13/2004 18:19 EST HOLD PURPLE TOP Routine 12/13/2004 18:19 EST HOLD GREEN TOP Routine 12/13/2004 18:19 EST HOLD BLUE TOP Routine 12/13/2004 18:19 EST TESTS ADDED BY PHONE Routine 12/13/2004 18:19 EST TESTS ADDED BY PHONE Routine 12/13/2004 18:19 EST TROPONIN I Routine 12/13/2004 18:19 EST PTT Routine 12/13/2004 18:19 EST PROTIME Routine 12/13/2004 18:19 EST COMPLETE BLOOD COUNT AND DIFFERENTIAL Routine 12/13/2004 18:19 EST BUN Routine 12/13/2004 18:19 EST MAGNESIUM Routine 12/13/2004 18:19 EST LIPASE Routine 12/13/2004 18:19 EST CK MB WITH TOTAL CK Routine 12/13/2004 1 8:19 EST HEPATIC FUNCTION PANEL (ALB,ALK PHOS,ALT,AST,DBIL,TOT EDY,TOT PROT) Routine 12/13/2004 18:19 EST ELECTROLYTES Routine 12/13/2004 18:19 EST documented in this encounter Results * TROPONIN I (12/13/2004 18:19 EST) Troponin I 2011 <0.15 ng/ml [facility] Comment: normal: less than 0.15 indeterminate: 0.15-1.50 positive: greater than 1.50 12/13/2004 18:1 9 EST 12/13/2004 18:20 EST us Default Emergency MD CHEMISTRY & BLOOD GAS ORDER CAITLYN Final Result Performing Organization Address [facility] Phone Number [facility] [address] [place] [address] * PTT (12/13/2004 18:19 EST) PTT 30 23 - 34 secs [facility] Comment:Therapeutic Heparin range: 72-120 seconds 12/13/2004 18:1 9 EST 12/13/2004 18:20 EST us Default Emergency MD HEMATOLOGY & PF4 ORDERABLES Final Result Performing Organization Address [facility] Phone Number [facility] [address] [place] [address] * PROTIME (12/13/2004 18:19 EST) Pro Time 13.9 12.3 - 14.7 secs [facility] I.N.R. 1.0 0.9 - 1.1 Ratio [facility] Comment: Moderate Intensity Coumadin INR = 2.0-3.0 Adjustments in anticoagulant therapy dose should be based upon the INR and NOT the Pro Time. 12/13/2004 18:1 9 EST 12/13/2004 18:20 EST us Default Emergency MD HEMATOLOGY & PF4 ORDERABLES Final Result Performing Organization Address [facility] Phone Number [facility] [address] [place] [address] * MAGNESIUM (12/13/2004 18:19 EST) Magnesium 1.8 1.7 - 2.8 mg/dl [facility] 12/13/2004 18:1 9 EST 12/13/2004 18:20 EST us Default Emergency MD CHEMISTRY & BLOOD GAS ORDER CAITLYN Final Result Performing Organization Address [facility] de Phone Number [facility] [address] [place] [address] * ELECTROLYTES (12/13/2004 18:19 EST) Sodium 142 136 - 145 mEq/L [facility] Potassium 3.8 3.5 - 5.0 mEq/L [facility] Chloride 103 96 - 110 mEq/L [facility] CO2 26 24 - 32 mEq/L [facility] 12/13/2004 18:1 9 EST 12/13/2004 18:20 EST us Default Emergency MD CHEMISTRY & BLOOD GAS ORDER CAITLYN Final Result Performing Organization Address [facility] de Phone Number [facility] [address] [place] [address] * (ABNORMAL) LIVER FUNCTION TESTS (12/13/2004 18:19 EST) Albumin 4.6 3.4 - 4.9 g/dl [facility] Total Protein 7.8 6.5 - 8.0 g/dl [facility] Total Alkaline Phosphatase 87 38 - 126 U/L [facility] ALT 42 21 - 72 U/L [facility] AST 53(H) 15 - 46 U/L [facility] Unconjugated Bilirubin 0.8 0.1 - 1.1 mg/dl [facility] Conjugated Bilirubin 0.0 0.0 - 0.3 mg/dl [facility] Bilirubin, Total 0.9 0.2 - 1.3 mg/dl [facility] 12/13/2004 18:1 9 EST 12/13/2004 18:20 EST us Default Emergency MD CHEMISTRY & BLOOD GAS ORDER CAITLYN Final Result Performing Organization Address [facility] Co de Phone Number [facility] [address] [place] [address] * LIPASE (12/13/2004 18:19 EST) Lipase 35 0 - 250 U/L [facility] 12/13/2004 18:1 9 EST 12/13/2004 18:20 EST us Default Emergency MD CHEMISTRY & BLOOD GAS ORDER CAITLYN Final Result Performing Organization Address [facility] Co de Phone Number [facility] [address] [place] [address] * HOLD SST (12/13/2004 18:19 EST) Hold SST Hold for further testing. Specimen will be held for 30 days. [facility] 12/13/2004 18:1 9 EST 12/13/2004 18:20 EST us Default Emergency MD LAB INFO SERVICE AND SUPPOR T & PHONE RESULT Final Result Performing Organization Address [facility] Co de Phone Number [facility] [address] [place] [address] * HOLD PURPLE TOP (12/13/2004 18:19 EST) Hold Purple Top EDTA for hematology will be discarded after 48 hours, differential not available after 12 hours. [facility] 12/13/2004 18:1 9 EST 12/13/2004 18:20 EST us Default Emergency MD LAB INFO SERVICE AND SUPPOR T & PHONE RESULT Final Result Performing Organization Address [facility] de Phone Number [facility] [address] [place] [address] * HOLD GREEN TOP (12/13/2004 18:19 EST) Hold Green Top Hold for further testing. Specimen will be held for 30 days. [facility] 12/13/2004 18:1 9 EST 12/13/2004 18:20 EST us Default Emergency MD LAB INFO SERVICE AND SUPPOR T & PHONE RESULT Final Result Performing Organization Address [facility] Co de Phone Number [facility] [address] [place] [address] * HOLD BLUE TOP (12/13/2004 18:19 EST) Hold Blue Top Sample for coagulation will be discarded after 4 hours [facility] 12/13/2004 18:1 9 EST 12/13/2004 18:20 EST Default Emergency MD LAB INFO SERVICE AND SUPPOR T & PHONE RESULT Final Result Performing Organization Address [facility] de Phone Number [facility] [address] [place] [address] * CREATININE (12/13/2004 18:19 EST) Pathologist [facility] Creatinine 1.0 0.7 - 1.5 mg/dl [facility] 12/13/2004 18:1 9 EST 12/13/2004 18:20 EST Default Emergency HISTORICAL LAB FOR SQ LOAD Final Result Performing Organization Address [facility] Phone Number [facility] [address] [place] [address] * CK MB WITH TOTAL CK (12/13/2004 18:19 EST) Pathologist [facility] CK 151 0 - 250 U/L [facility] MB 0.4 0 - 5.0 ng/ml [facility] CK-MB Index Not calculated , normal MB. 0 - 2.5 [facility] 12/13/2004 18:1 9 EST 12/13/2004 18:20 EST Default Emergency CHEMISTRY & BLOOD GAS ORDER CAITLYN Final Result Performing Organization Address [facility] de Phone Number [facility] [address] [place] [address] * (ABNORMAL) HEMAGRAM AND DIFFERENTIAL (12/13/2004 18:19 EST) WBC 7.73 4.0 - 10.4 K/cmm [facility] RBC 5.37 4.36 - 5.78 M/cmm [facility] Hemoglobin 16.8 13.8 - 17.3 gm/dl [facility] HCT 48.6 39.5 - 50.2 % [facility] MCV 90 81 - 95 fl [facility] MCH 31.3 27.6 - 33.0 pg [facility] MCHC 34.6 32.8 - 36.4 gm/dl [facility] PLT 228 141 - 320 K/cmm [facility] RDW-CV 13.3 11.8 - 14.1 % [facility] Neutrophils 92.0(H) 45.5 - 79.7 % [facility] % Bands 4.0 % [facility] Lymphocytes 2.0(L) 15.0 - 46.8 % [facility] Monocytes 2.0 1.8 - 12.0 % [facility] ABS Neutrophils 7.12 2.20 - 8.85 K/cmm [facility] ABS Bands 0.31 K/cmm [facility] ABS Lymphs 0.15(L) 1.09 - 3.30 K/cmm [facility] ABS Monocytes 0.15 0.1 - 0.8 K/cmm [facility] RBC Morphology Normal [facility] Type of Diff: Manual [facility] 12/13/2004 18:1 9 EST 12/13/2004 18:20 EST us Default Emergency MD PACKAGES & DNA PROBE ORDERA BLES Final Result Performing Organization Address [facility] de Phone Number [facility] [address] [place] [address] * BUN (12/13/2004 18:19 EST) BUN 14 10 - 26 mg/dl [facility] 12/13/2004 18:1 9 EST 12/13/2004 18:20 EST us Default Emergency CHEMISTRY & BLOOD GAS ORDER CAITLYN Final Result Performing Organization Address City/[facility]/ZIP Co de Phone Number [facility] [address] [place] [address] * TESTS ADDED BY PHONE (12/13/2004 18:19 EST) Tests to be added STAT PRO,PTT,CB CDF [facility] 12/13/2004 18:1 9 EST 12/13/2004 18:20 EST us Default Emergency MD HEMATOLOGY & PF4 ORDERABLES Final Result Performing Organization Address City/[facility] Co de Phone Number [facility] [address] [place] [address] * TESTS ADDED BY PHONE (12/13/2004 18:19 EST) Tests to be added STAT LYT,BUN,CR EA,MG,CKMB ,TROP,LIVR ,LIPA [facility] 12/13/2004 18:1 9 EST 12/13/2004 18:20 EST us Default Emergency MD CHEMISTRY & BLOOD GAS ORDER CAITLYN Final Result Performing Organization Address [facility] de Phone Number [facility] [address] [place] [address] documented in this encounter Visit Diagnoses Not on filedocumented in this encounter Additional Health Concerns Infection Onset Date Last Indicated Resolved Time R/O COVID-19 04/15/2020 04/15/2020 04/20/2020 22:1 6 EDT documented as of this encounter Care Teams Registration Specialist Relationship Specialty Start Date End Date Hua Blanton MD PCP - General 03/12/09 12/15/11 None, Provider PCP - General 12/16/11 03/01/12 Darnell Taylor MD [address] [place] [address] PCP - General 03/02/12 07/29/19 Darnell Taylor MD [address] [place] [address] PCP - General 07/30/19 01/08/20 Lasha Angelo MD [address] [place] [address] PCP - General Family Medicine - Primary Care 01/09/20 06/23/21 Sangita Nolasco MD [address] [place] [address] PCP - General 06/24/21 documented as of this encounter
--- OUTSIDE RECORDS SUMMARY | 2024-11-26 14:02 | XMS_ITS | Encounter Summary ---
Author Organization [facility] Address [address] [place] [address] Care Team Providers Care Warehouse Worker Name Role Phone Unavailable Primary Care Provider Unavailabl e Encounter Details Date Type Department Care Team (Late st Contact Info) Description 06/08/2003 7:58 EDT - 06/08/2003 11:[address] [facility] [address] [place] [address] Agusto Keyes MD [address] [place] [phone] Discharge Disposition: Auto Discharge Social History Tobacco [...] Priority Date/Time Associated Diagnosis Comments MR EXTREMITY WRIST WO CONTRAST Routine 06/08/2003 8:45 EDT documented in this encounter Results * MR EXTREMITY WRIST WO CONTRAST (06/08/2003 8:45 EDT) Anatomical Region Laterality Modality Other 06/08/2003 8:45 EDT Impressions 06/30/2009 6:11 EDT IMPRESSION: 1. No evidence of recurrent full thickness rotator cuff tear on this postoperative right shoulder. I do suspect a partial thickness tear or tendinopathy of the supraspinatus tendon near the insertion. Similar changes are seen involving the infraspinatus tendon. 2. Mild atrophy of the supraspinatus muscle near the musculotendinous junction. 3. Probable normal variant anterior superior labrum, although a tear is not definitely excluded. 4. Post surgical changes as noted. D 06/09/03 T 06/11/03 /jl Narrative 06/30/2009 6:11 EDT RIGHT SHOULDER PAIN R/O RTC TEAR MRI RIGHT SHOULDER 06/08/03 CLINICAL HISTORY: Pain, history of rotator cuff repair four years ago. TECHNIQUE: Axial PD, axial left STIR, coronal PD, coronal T2 fat saturated, sagittal T1, sagittal 2 fat saturated images were obtained. FINDINGS: There is artifact in the superior shoulder and at the level of the rotator cuff insertion on the humeral head related to prior surgery. It appears that there has been acromioclavicular decompression. The supraspinatus tendon appears intact, but there is abnormal hyperintense signal along the articular surface suggesting partial tear or tendinopathy. Similar changes are seen in the infraspinatus tendon near the insertion. There is no evidence of retraction. Muscle atrophy is identified at the musculotendinous junction of the supraspinatus tendon. There is no other evidence of muscle atrophy. Cystic changes are seen in the posterior lateral aspect of the humeral head. There are no other bone marrow signal abnormalities within the limits of the examination (i.e. artifact). There is a small amount of joint fluid. A small defect in the anterior superior labrum is likely a normal variant, but I cannot definitely exclude pathology. Procedure Note Asmita Salvador MD - 06/30/2009 RIGHT SHOULDER PAIN R/O RTC TEAR MRI RIGHT SHOULDER 06/08/03 CLINICAL HISTORY: Pain, history of rotator cuff repair four years ago. TECHNIQUE: Axial PD, axial left STIR, coronal PD, coronal T2 fat saturated, sagittal T1, sagittal 2 fat saturated images were obtained. FINDINGS: There is artifact in the superior shoulder and at the level of the rotator cuff insertion on the humeral head related to prior surgery. It appears that there has been acromioclavicular decompression. The supraspinatus tendon appears intact, but there is abnormal hyperintense signal along the articular surface suggesting partial tear or tendinopathy. Similar changes are seen in the infraspinatus tendon near the insertion. There is no evidence of retraction. Muscle atrophy is identified at the musculotendinous junction of the supraspinatus tendon. There is no other evidence of muscle atrophy. Cystic changes are seen in the posterior lateral aspect of the humeral head. There are no other bone marrow signal abnormalities within the limits of the examination (i.e. artifact). There is a small amount of joint fluid. A small defect in the anterior superior labrum is likely a normal variant, but I cannot definitely exclude pathology. IMPRESSION IMPRESSION: 1. No evidence of recurrent full thickness rotator cuff tear on this postoperative right shoulder. I do suspect a partial thickness tear or tendinopathy of the supraspinatus tendon near the insertion. Similar changes are seen involving the infraspinatus tendon. 2. Mild atrophy of the supraspinatus muscle near the musculotendinous junction. 3. Probable normal variant anterior superior labrum, although a tear is not definitely excluded. 4. Post surgical changes as noted. D 06/09/03 T 06/11/03 /lizzette Agusto Keyes MD IMG MRI ORDERABLES Final Result documented in this encounter Visit Diagnoses Not on filedocumented in this encounter
--- OUTSIDE RECORDS SUMMARY | 2024-11-26 14:02 | XMS_ITS | Encounter Summary ---
Author Organization [facility] Address [address] [place] [address] Care Team Providers Care Science Technicians Name Role Phone Unavailable Primary Care Provider Unavailabl e Encounter Details Date Type Department Care Team (Latest Contact Info) Description 06/24/2005 22:35 EDT Hospital Encounter [facility] - Other [address] [place] [address] Jennifer Thomas MD [address] [place] [phone] Discharge Disposition: Auto Discharge Social History Tobacco [...] Procedure Name Priority Date/Time Associated Diagnosis Comments THYROID CASCADE Routine 06/24/2005 14:05 EDT SED RATE Routine 06/24/2005 14:05 EDT CK Routine 06/24/2005 14:05 EDT documented in this encounter Results * THYROID CASCADE (06/24/2005 14:05 EDT) TSH 1.35 0.35 - 5.50 uIU/ml [facility] Comment: TSH cascade is not recommended for patients in which pituitary or hypothalamic disorders are suspected. 06/24/2005 14:0 5 EDT 06/24/2005 18:19 EDT Jennifer Thomas MD CHEMISTRY & BLOOD GAS ORDERABLES Final Result Performing Organization Address City/[facility] Co de Phone Number [facility] [address] [place] [address] * SED. RATE:WESTERGREN (06/24/2005 14:05 EDT) Pathologist [facility] Sed. Rate Westergren 7 0 - 20 mm/hr [facility] Comment: Note: Sample greater than 4 hrs old (but less than 12 hrs) when tested. If refrigerated, sample is stable when tested within 12 hours of collection. 06/24/2005 14:0 5 EDT 06/24/2005 18:19 EDT Jennifer Thomas MD HEMATOLOGY & PF4 ORDERABLES [place] Result Performing Organization Address [facility] de Phone Number [facility] [address] [place] [address] * CK (06/24/2005 14:05 EDT) CK 110 0 - 250 U/L [facility] 06/24/2005 14:0 5 EDT 06/24/2005 18:19 EDT Jennifer Thomas MD CHEMISTRY & BLOOD GAS ORDERABLES Final Result Performing Organization Address [facility] Co de Phone Number [facility] [address] [place] [address] documented in this encounter Visit Diagnoses Not on filedocumented in this encounter
--- OUTSIDE RECORDS SUMMARY | 2024-11-26 14:02 | XMS_ITS | Encounter Summary ---
Author Organization [facility] Address [address] [place] [address] Care Team Providers Care Check And Transfer Beader Name Role Phone Hua Blanton MD Primary Care Provider Unava ilable Encounter Details Date Type Department Care Team (Late st Contact Info) Description 05/30/2011 Results Only [facility] - [facility] ([facility]) [address] [place] [address] Hua Blanton MD Social History Tobacco Use [...] Associated Diagnosis Comments COMPLETE BLOOD COUNT Routine 05/30/2011 14:30 EDT PSA SCREEN Routine 05/30/2011 14:30 EDT LIPID PROFILE (INCLUDES CHOLESTEROL, TRIGLYCERIDES, HDL, LDL) Routine 05/30/2011 14:30 EDT COMPREHENSIVE METABOLIC PANEL (CMP) Routine 05/30/2011 14:30 EDT documented in this encounter Results * PSA SCREEN (05/30/2011 14:30 EDT) PSA 4.2 0 - 4.5 ng/ml [facility] Comment: ??Serum PSA concentration should not be interpreted as absolute evidence for the presence or absence of malignant disease. ?? Assayed utilizing AssayMetrics chemiluminescent technology. Values obtained by using different assay methods cannot be used interchangeably. 05/30/2011 14:3 0 EDT 05/30/2011 18:39 EDT Hua Blanton MD CHEMISTRY & BLOOD GAS ORDERA BLES Final Result Performing Organization Address [facility] de Phone Number [facility] [address] [place] [address] * LIPID PROFILE (INCLUDES CHOLESTEROL, TRIGLYCERIDES, HDL, LDL) (05/30/2011 14:30 EDT) Cholesterol 198 mg/dl [facility] Comment:Desirable:<200 Borde rline High:200-239 High:>kf=593 Triglycerides 133 35 - 160 mg/dl [facility] HDL 65 mg/dl [facility] Comment:Low:<40 High(Desirab le):>or=60 LDL, Calculated 106 mg/dl [facility] Comment: Optimal:<100 Above optimal:100-129 Borderline High:130-159 High:160-189 Very High:>ek=221 Chol/HDL Ratio 3.0 [facility] Fasting? No [facility] 05/30/2011 14:3 0 EDT 05/30/2011 18:39 EDT Hua Blanton MD CHEMISTRY & BLOOD GAS ORDERA BLES Final Result Performing Organization Address [facility] de Phone Number [facility] [address] [place] [address] * COMPREHENSIVE METABOLIC PANEL (CMP) (05/30/2011 14:30 EDT) Potassium 4.7 3.5 - 5.0 mEq/L [facility] Sodium 141 136 - 145 mEq/L [facility] Chloride 102 96 - 110 mEq/L [facility] CO2 29 24 - 32 mEq/L [facility] Total Alkaline Phosphatase 68 38 - 126 U/L [facility] Bilirubin, Total 0.5 0.2 - 1.3 mg/dl [facility] AST 36 15 - 46 U/L [facility] ALT 36 21 - 72 U/L [facility] Albumin 4.3 3.4 - 4.9 g/dl [facility] Total Protein 7.1 6.5 - 8.3 g/dl [facility] Creatinine 0.97 0.7 - 1.5 mg/dl [facility] GFR, Calculated >60 ml/min/1.7 3m2 [facility] BUN 10 10 - 26 mg/dl [facility] Calcium 9.3 8.5 - 10.5 mg/dl [facility] Calculated Calcium 9.4 8.5 - 10.5 mg/dl [facility] Glucose, Serum 90 70 - 100 mg/dl [facility] Fasting? No [facility] 05/30/2011 14:3 0 EDT 05/30/2011 18:39 EDT Hua Blanton MD CHEMISTRY & BLOOD GAS ORDERA BLES Final Result [facility] [address] [place] [address] * (ABNORMAL) HEMAGRAM (05/30/2011 14:30 EDT) WBC 4.41 4.0 - 10.4 K/cmm [facility] RBC 4.31(L) 4.36 - 5.78 M/cmm [facility] Hemoglobin 14.1 13.8 - 17.3 gm/dl [facility] HCT 40.3 39.5 - 50.2 % [facility] MCV 93 81 - 95 fl [facility] MCH 32.8 27.6 - 33.0 pg [facility] MCHC 35.1 32.8 - 36.4 gm/dl [facility] PLT 195 141 - 320 K/cmm [facility] RDW-CV 14.3(H) 11.8 - 14.1 % [facility] 05/30/2011 14:3 0 EDT 05/30/2011 18:39 EDT us Hua Blanton MD HEMATOLOGY & PF4 ORDERABLES Final Result Performing Organization Address City/State/[facility] Co de Phone Number [facility] [address] [place] [address] documented in this encounter Visit Diagnoses Not on filedocumented in this encounter Care Teams Check And Transfer Beader Relationship Specialty Start Date End Date Hua Blanton MD PCP - General 03/12/09 12/15/11 documented as of this encounter
--- OUTSIDE RECORDS SUMMARY | 2024-11-26 14:02 | XMS_ITS | Encounter Summary ---
Author Organization [facility] Address [address] [place] [address] Care Team Providers Care Band Splicer Name Role Phone Hua Blanton MD Primary Care Provider Unava ilable Encounter Details Date Type Department Care Team (Late st Contact Info) Description 12/13/2004 Office Visit [facility] [address] [place] [address] Jennifer Gibbons MD [address] [facility], [address] [place] [phone] Social History Tobacco Use Types Packs/Day Years Used Date Smoking Tobacco: Never Assessed Sex and Gender Information Value Date Recorded Sex Assigned at Male 03/18/2022 9:53 EDT Legal Sex Male 18:08 EST Gender Identity Male 09/16/2019 15:02 EST Sexual Orientation Not on file documented as of this encounter Progress Notes * Jennifer Gibbons MD - 12/15/2009 1225 EST Emergency Department ??? Physician Summary Registration Date/Time 12/13/2004 17:52 Arrived- By ambulance. Historian- patient, EMS personnel and family. HISTORY OF PRESENT ILLNESS Chief complaint- ABDOMINAL PAIN. This started today and is still present (all day low abdominal discomfort, pt with severe abd pain and notes after eating today feels stuck in chest). It is describedas generalized in location and radiating to chest. Modifying factors (felt like had to go all day).He has had nausea. No loss of appetite, vomiting or diarrhea. Patient has not had similar symptoms previously. Not recently seen/assessed. REVIEW OF SYSTEMS The patient has had constipation. No black stools, hematemesis, difficulty with urination, pain with urination or urinary frequency. No bloody stools, fever, headache, sore throat or blurred vision. No chest pain, difficulty breathing, cough, joint pain or skin rash. No chills or back pain. PAST HISTORY GERD No history of hypertension or diabetes mellitus. No prior abdominal surgery. Medications: stomach med Allergies: coconut SOCIAL HISTORY Nonsmoker. Is a local resident. ADDITIONAL NOTES The nursing notes have been reviewed. PHYSICAL EXAM Appearance: Alert. Patient in severe distress. Vital Signs: The vital signs have been reviewed. Eyes: Pupils equal, round and reactive to light. Eyes normal inspection. ENT: Ears normal. Nose normal. Pharynx normal. Neck:Normal inspection. Neck supple. CVS: Normal heart rate and rhythm. Heart sounds normal. Respiratory:No respiratory distress. Breath sounds normal. Abdomen: Abdominal distention (enormous). Moderate tenderness diffusely. Abnormal bowel sounds. Abdomen soft. No mass present. Back: Normal inspection. Skin: Normal skin color. Skin warm and dry. Extremities: Extremities exhibit normal ROM. No pedal edema. Neuro: Oriented X 3. LABS, X-RAYS, AND EKG KUB: Note (large dilated/distended stomach, A/f in small bowel - many). Views: two view AP. Technique: good. The abdominal X-rays were interpreted contemporaneously by me and discussed with the radiologist. CBC: WBC 7.9 Chemistries: Basic Metabolic Panel (Chem 8)- normal. Note - Tests: (repeat film after vomiting - successful gastric decompression ). PROGRESS AND PROCEDURES E.D. Course: bedside ultrasound - unable to see aorta well with gas and stool, no obv aneurysm xray with obtructed stomach, multiple a/f levels vomited and relieved by repeat xray, but now reaccumulating distension and pain, temp up to 38.1 will tylenol and consult surg surg in will see, Dr Diamond from GI aware of pt could scope tonight. Pt states prolonged recoveries in past from sedation -Iwill not clear for conscious sedation in ED for procedure. Surg will admit and NGT , for procedure tomorrow with anesthesia Discussed case with physician Dr. Wood call placed call returned Physician will see patient in ED.Patient/family counseled. Disposition: Admitted. Condition: stable. CLINICAL IMPRESSION Abdominal pain. gastric obstruction Jennifer Gibbons M.D. (Electronically signed Jennifer Gibbons M.D. 12/13/2004 23:01) Physician's Clinical Report Emergency Department ??? Nursing Summary Registration Date/Time 12/13/2004 17:52 TRIAGE Initial Assessment Acuity: LEVEL 3. --00:05 Gina Adler R.N. Medications (can't remember). --00:05 Gina Adler R.N. Allergies No known drug allergies. --00:05 Gina Adler R.N. History Chief Complaint: ABDOMINAL PAIN. The patient has had nausea and vomiting. PAST HX: Gastroesophageal reflux disease. SOCIAL HX: No report of abuse. Historian: patient. (Late entry---no triage note done for this pt upon arrival). --00:05 Gina Adler R.N. Interventions To room. --00:05 Gina Adler R.N. NURSING PROGRESS NOTES Progress Temp: 38.1 tympanic ACETAMINOPHEN 975 mg PO. --20:09 Kang Diaz R.N. MORPHINE 2mg given much earlier IVP. --20:53 Maribeth Velásquez R.N. REGLAN 10 mg diluted with 2 mL slow IVP over 2 minutes. --20:54 Maribeth Velásquez R.N. (Abd films obtained). --20:54 Maribeth Velásquez R.N. BP: 114 / 61 HR: 86 --20:56 Maribeth Velásquez R.N. (surgery in to assess pt). --20:56 Maribeth Velásquez R.N. 12-lead EKG was ordered, performed by a tech and shown to the ED physician. --21:16 Clemente Campoverde BP: 123 / 64 HR: 79 RR: 18 The patient is calm and resting quietly. --22:24 Gina Adler R.N. (NG lavage in progress by Surgery MD.). --23:11 Gina Adler R.N. (NGT placed and to LIC by Surgery, fresh linens and another pillow provided, admit pending, visitorsupportive at BS.). --23:23 Gina Adler R.N. to LIS). --23:24 Gina Adler R.N. IV / I&O Flowsheet IV fluid started- #1 bag NS. Rate - 125 mL / hr. --22:24 Gina Adler R.N. IV site #1: location left antecubital space. Location (place earlier in shift---don;t know by whom). Started: 18g angiocath. INTAKE: IV 1000 mL OUTPUT: no urine output --00:10 Gina Adler R.N. OUTPUT: GI tube 200 mL --00:13 Gina Adler R.N. DISPOSITION / DISCHARGE Admitted ([id number]). --23:55 Gina Adler R.N. (will call report.). --23:55 Gina Adler R.N. BP: 122 / 67 HR: 84 RR: 16 Temp: 36.5 tympanic Patient reports pain level on departure as 0/10. Condition at departure: stable. Transported via stretcher by [email or web address]. Report was given (to RN). (IVF NS atbolus IV.). --00:08 Laron Saez R.N., R.N. Shelly Garrow R.N. Joseph Pare, E.M.T. Audra Fisher R.N. Locked/Released at 12/14/2004 0:13 by Gina Adler R.N. documented in this encounter Plan of Treatment Not on file documented as of this encounter Visit Diagnoses Not on filedocumented in this encounter Care Teams Band Splicer Relationship Specialty Start Date End Date Hua Blanton MD PCP - General 03/12/09 12/15/11 documented as of this encounter
--- OUTSIDE RECORDS SUMMARY | 2024-11-26 14:02 | XMS_ITS | Encounter Summary ---
Author Organization [facility] Address [address] [place] [address] Care Team Providers Care Sole Dyer Name Role Phone Unavailable Primary Care Provider Unavailabl e Encounter Details Date Type Department Care Team (Latest Contact Info) Description 01/21/2009 12:44 EDT Hospital Encounter [facility] [address] [place] [address] Matty Renee MD [address] [place] [phone] Discharge Disposition: Auto Discharge Social History Tobacco [...]
--- OUTSIDE RECORDS SUMMARY | 2024-11-26 14:02 | XMS_ITS | Encounter Summary ---
Author Organization [facility] Address [address] [place] [address] Care Team Providers Care Computer Numerical Control Programmer Name Role Phone Unavailable Primary Care Provider Unavailabl e Encounter Details Date Type Department Care Team (Latest Contact Info) Description 02/01/2006 8:59 EDT - 02/01/2006 11:59 EDT Hospital Encounter [facility] - Other [address] [place] [address] Hua Blanton MD Discharge Disposition: Home or Self Care Social [...] Date/Time Associated Diagnosis Comments THYROID CASCADE Routine 02/01/2006 11:30 EDT SED RATE Routine 02/01/2006 11:30 EDT COMPLETE BLOOD COUNT Routine 02/01/2006 11:30 EDT CK Routine 02/01/2006 11:30 EDT COMPREHENSIVE METABOLIC PANEL (CMP) Routine 02/01/2006 11:30 EDT documented in this encounter Results * THYROID CASCADE (02/01/2006 11:30 EDT) Pathologist [facility] TSH 1.72 0.35 - 5.00 uIU/mL [facility] Comment: TSH cascade is not recommended for patients in which pituitary or hypothalamic disorders are suspected. 02/01/2006 11:3 0 EDT 02/01/2006 17:32 EDT Hua Blanton MD CHEMISTRY & BLOOD GAS ORDERA BLES Final Result Performing Organization Address [facility] de Phone Number [facility] [address] [place] [address] * SED. RATE:WESTERGREN (02/01/2006 11:30 EDT) [facility] Sed. Rate Westergren 10 0 - 20 mm/hr [facility] Comment: Note: Sample greater than 4 hrs old (but less than 12 hrs) when tested. If refrigerated, sample is stable when tested within 12 hours of collection. 02/01/2006 11:3 0 EDT 02/01/2006 17:32 EDT Hua Blanton MD HEMATOLOGY & PF4 ORDERABLES Final Result Performing Organization Address [facility] de Phone Number [facility] [address] [place] [address] * (ABNORMAL) COMPREHENSIVE METABOLIC PANEL (02/01/2006 11:30 EDT) Pathologist [facility] Potassium 4.3 3.5 - 5.0 mEq/L [facility] Sodium 138 136 - 145 mEq/L [facility] Chloride 103 96 - 110 mEq/L [facility] CO2 28 24 - 32 mEq/L [facility] Total Alkaline Phosphatase 62 38 - 126 U/L [facility] Bilirubin, Total <0.5 0.2 - 1.3 mg/dl [facility] AST 30 15 - 46 U/L [facility] ALT 50 21 - 72 U/L [facility] Albumin 4.4 3.4 - 4.9 g/dl [facility] Total Protein 6.8 6.5 - 8.3 g/dl [facility] Creatinine 1.0 0.7 - 1.5 mg/dl [facility] BUN 10 10 - 26 mg/dl [facility] Calcium 9.1 8.5 - 10.5 mg/dl [facility] Calculated Calcium 9.1 8.5 - 10.5 mg/dl [facility] Glucose, Serum 114(H) 70 - 100 mg/dl [facility] Fasting? Unknown [facility] Albumin/Globulin Ratio 1.8 [facility] 02/01/2006 11:3 0 EDT 02/01/2006 17:32 EDT Hua Blanton MD CHEMISTRY & BLOOD GAS ORDERA BLES Final Result Performing Organization Address [facility] Co de Phone Number [facility] [address] [place] [address] * CK (02/01/2006 11:30 EDT) CK 84 0 - 250 U/L [facility] 02/01/2006 11:3 0 EDT 02/01/2006 17:32 EDT Hua Blanton MD CHEMISTRY & BLOOD GAS ORDERA BLES Final Result Performing Organization Address [facility] Co de Phone Number [facility] [address] [place] [address] * (ABNORMAL) HEMAGRAM (02/01/2006 11:30 EDT) WBC 3.37(L) 4.0 - 10.4 K/cmm [facility] RBC 4.53 4.36 - 5.78 M/cmm [facility] Hemoglobin 14.5 13.8 - 17.3 gm/dl [facility] HCT 41.2 39.5 - 50.2 % [facility] MCV 91 81 - 95 fl [facility] MCH 32.1 27.6 - 33.0 pg [facility] MCHC 35.3 32.8 - 36.4 gm/dl [facility] PLT 222 141 - 320 K/cmm [facility] RDW-CV 13.1 11.8 - 14.1 % [facility] 02/01/2006 11:3 0 EDT 02/01/2006 17:32 EDT us Hua Blanton MD HEMATOLOGY & PF4 ORDERABLES Final Result Performing Organization Address City/State/[facility] Co de Phone Number [facility] [address] [place] [address] documented in this encounter Visit Diagnoses Not on filedocumented in this encounter
--- OUTSIDE RECORDS SUMMARY | 2024-11-26 14:02 | XMS_ITS | Encounter Summary ---
Author Organization [facility] Address [address] [place] [address] Care Team Providers Care Turning Sander Operator Name Role Phone Unavailable Primary Care Provider Unavailabl e Encounter Details Date Type Department Care Team (Late st Contact Info) Description 05/03/2006 9:28 EDT Hospital Encounter [address] [address] Randy Booth MD [address] [place] [address], [address] [place] [phone] Social History Tobacco Use Types Packs/Day Years [...]
--- OUTSIDE RECORDS SUMMARY | 2024-11-26 14:02 | XMS_ITS | Encounter Summary ---
Author Organization [facility] Address [address] [place] [address] Care Team Providers Care Food Writer Name Role Phone Darnell Taylor MD Primary Care Provider [phone] Darnell Taylor MD Primary Care Provider [phone] Lasha Angelo MD Primary Care Provider [phone] Sangita Nolasco MD Primary Care Provider [phone] Encounter Details Date Type Department Care Team (Late st Contact Info) Description 03/09/2012 Telephone [facility] Neurology - [place] [address] [place] [address] [id number] Alyson Harden MD [address] [place] [address] [address] [place] [place], [place] [id number] Social History Tobacco Use Types Packs/Day Years Used Date Smoking Tobacco: Never Alcohol Use Standard Drinks/Week Comments No 0 (1 standard drink = 0.6 oz pur e alcohol) Interpersonal Safety Answer Date Record ed Physically [...] documented as of this encounter Care Teams Food Writer Relationship Specialty Start Date End Date Darnell Taylor MD [address] [place] [address] PCP - General 03/02/12 07/29/19 Darnell Taylor MD [address] [place] [address] PCP - General 07/30/19 01/08/20 Lasha Angelo MD [address] [place] [address] PCP - General Family Medicine - Primary Care 01/09/20 06/23/21 Sangita Nolasco MD [address] [place] [address] PCP - General 06/24/21 documented as of this encounter
--- OUTSIDE RECORDS SUMMARY | 2024-11-26 14:02 | XMS_ITS | Encounter Summary ---
Author Organization [facility] Address [address] [place] [address] Care Team Providers Care Terrazzo Roller Name Role Phone Hua Blanton MD Primary Care Provider Unava ilable None, Provider Primary Care Provider Unavailabl e Darnell Taylor MD Primary Care Provider [phone] Darnell Taylor MD Primary Care Provider [phone] Lasha Angelo MD Primary Care Provider [phone] Sangita Nolasco MD Primary Care Provider [phone] Encounter Details Date Type Department Care Team (Late st Contact Info) Description 12/13/2004 Before PRISM Converted Visit (Maple) [facility] - Maple conversion [address] [place] [address] Dalton Rodriguez MD [address] [place] [address] Social History Tobacco Use Types Packs/Day Years [...] documented as of this encounter Care Teams Terrazzo Roller Relationship Specialty Start Date End Date Hua Blanton MD PCP - General 03/12/09 12/15/11 None, Provider PCP - General 12/16/11 03/01/12 Darnell Taylor MD [address] [place] [address] PCP - General 03/02/12 07/29/19 Darnell Taylor MD [address] [place], [place] 486771 PCP - General 07/30/19 01/08/20 Lasha Angelo MD [address] [place], [place] 952731 PCP - General Family Medicine - Primary Care 01/09/20 06/23/21 Sangita Nolasco MD [address] [place], [place] 794731 PCP - General 06/24/21 documented as of this encounter
--- OUTSIDE RECORDS SUMMARY | 2024-11-26 14:02 | XMS_ITS | Encounter Summary ---
Author Organization [facility] Address [address] [place] [address] Care Team Providers Care Booth Operator Name Role Phone Hua Blanton MD Primary Care Provider Unava ilable None, Provider Primary Care Provider Unavailabl e Darnell Taylor MD Primary Care Provider Darnell Taylor MD Primary Care Provider [phone] Lasha Angelo MD Primary Care Provider [phone] Sangita Nolasco MD Primary Care Provider [phone] Encounter Details Date Type Department Care Team (Late st Contact Info) Description 12/13/2004 Before PRISM Converted Visit (Maple) [facility] - Maple conversion [address] [place] [address] Dalton Rodriguez MD [address] [place] [address] Social History Tobacco Use Types Packs/Day Years [...] documented as of this encounter Care Teams Booth Operator Relationship Specialty Start Date End Date Hua Blanton MD PCP - General 03/12/09 12/15/11 None, Provider PCP - General 12/16/11 03/01/12 Darnell Taylor MD [address] [place] [address] PCP - General 03/02/12 07/29/19 Darnell Taylor MD [address] [place], [place] 396951 PCP - General 07/30/19 01/08/20 Lasha Angelo MD [address] [place], [place] 876141 PCP - General Family Medicine - Primary Care 01/09/20 06/23/21 Sangita Nolasco MD [address] [place], [place] 253351 PCP - General 06/24/21 documented as of this encounter
--- OUTSIDE RECORDS SUMMARY | 2024-11-26 14:02 | XMS_ITS | Encounter Summary ---
Author Organization [facility] Address [address] [place] [address] Care Team Providers Care Intellectual Property Legal Assistant Name Role Phone Hua Blanton MD Primary Care Provider Unava ilable Encounter Details Date Type Department Care Team (Latest Contact Info) Description 04/29/2009 14:29 EDT - 04/29/2009 23:59 EDT Hospital Encounter [facility] - [address] [place] [address] Shai Garza MD [address] [place] [phone] Discharge Disposition: Home or Self Care [...] Code Departure Means Destination Home or Self Intermediate documented in this encounter Progress Notes * Inpatient, Physician - 03/17/2010 0923 EDT documented in this encounter Plan of Treatment Not on file documented as of this encounter Procedures Procedure Name Priority Date/Time Associated Diagnosis Comments COMPLETE BLOOD COUNT Routine 11/11/2009 10:00 EST PSA TOTAL, DIAGNOSTIC Routine 11/11/2009 10:00 EST LIPID PROFILE (INCLUDES CHOLESTEROL, TRIGLYCERIDES, HDL, LDL) Routine 11/11/2009 10:00 EST COMPREHENSIVE METABOLIC PANEL (CMP) Routine 11/11/2009 10:00 EST documented in this encounter Results * PSA (11/11/2009 10:00 EST) PSA 3.2 0 - 4.5 ng/ml [facility] Comment: Serum PSA concentration should not be interpreted as absolute evidence for the presence or absence of malignant disease. Assayed utilizing [employer] chemiluminescent technology. Values obtained by using different assay methods cannot be used interchangeably. PREVIOUS PSA ON 10/23/08 WAS 3.4 11/11/2009 10:0 0 EST 11/11/2009 13:51 EST Hua Blanton MD CHEMISTRY & BLOOD GAS ORDERA BLES Final Result Performing Organization Address [facility] de Phone Number [facility] [address] [place] [address] * LIPID PROFILE (INCLUDES CHOLESTEROL, TRIGLYCERIDES, HDL, LDL) (11/11/2009 10:00 EST) Pathologist [facility] Cholesterol 201 mg/dl [facility] Comment: Desirable:<200 Borderline High:200-239 High:>kw=546 Triglycerides 97 35 - 160 mg/dl [facility] HDL 69 mg/dl [facility] Comment: Low:<40 High(Desirable):>or=60 LDL, Calculated 113 mg/dl [facility] Comment: Optimal:<100 Above optimal:100-129 Borderline High:130-159 High:160-189 Very High:>ch=690 Chol/HDL Ratio 2.9 [facility] Fasting? Yes [facility] 11/11/2009 10:0 0 EST 11/11/2009 13:51 EST Hua Blanton MD CHEMISTRY & BLOOD GAS ORDERA BLES Final Result Performing Organization Address [facility] Phone Number [facility] [address] [place] [address] * COMPREHENSIVE METABOLIC PANEL (11/11/2009 10:00 EST) Potassium 4.4 3.5 - 5.0 mEq/L [facility] Sodium 139 136 - 145 mEq/L [facility] Chloride 102 96 - 110 mEq/L [facility] CO2 30 24 - 32 mEq/L [facility] Alkaline Phosphatase 62 38 - 126 U/L [facility] Bilirubin, Total <0.5 0.2 - 1.3 mg/dl [facility] AST 32 15 - 46 U/L [facility] ALT 41 21 - 72 U/L [facility] Albumin 4.6 3.4 - 4.9 g/dl [facility] Total Protein 7.3 6.5 - 8.3 g/dl [facility] Creatinine 0.96 0.7 - 1.5 mg/dl [facility] GFR, Calculated >60 ml/min/1.7 3m2 [facility] BUN 11 10 - 26 mg/dl [facility] Calcium 9.7 8.5 - 10.5 mg/dl [facility] Calculated Calcium 9.5 8.5 - 10.5 mg/dl [facility] Glucose, Serum 98 70 - 100 mg/dl [facility] Fasting? Yes [facility] 11/11/2009 10:0 0 EST 11/11/2009 13:51 EST Hua Blanton MD CHEMISTRY & BLOOD GAS ORDERA BLES Final Result [facility] [address] [place] [address] * (ABNORMAL) HEMAGRAM (11/11/2009 10:00 EST) WBC 3.77(L) 4.0 - 10.4 K/cmm [facility] RBC 4.50 4.36 - 5.78 M/cmm [facility] Hemoglobin 14.4 13.8 - 17.3 gm/dl [facility] HCT 41.4 39.5 - 50.2 % [facility] MCV 92 81 - 95 fl [facility] MCH 32.1 27.6 - 33.0 pg [facility] MCHC 34.8 32.8 - 36.4 gm/dl [facility] PLT 192 141 - 320 K/cmm [facility] RDW-CV 13.6 11.8 - 14.1 % [facility] 11/11/2009 10:0 0 EST 11/11/2009 13:51 EST us Hua Blanton MD HEMATOLOGY & PF4 ORDERABLES Final Result [facility] [address] [place] [address] documented in this encounter Visit Diagnoses Not on filedocumented in this encounter Care Teams Intellectual Property Legal Assistant Relationship Specialty Start Date End Date Hua Blanton MD PCP - General 03/12/09 12/15/11 documented as of this encounter
--- OUTSIDE RECORDS SUMMARY | 2024-11-26 14:02 | XMS_ITS | Encounter Summary ---
Author Organization [facility] Address [address] [place] [address] Care Team Providers Care Wood Floor Refinisher Name Role Phone Hua Blanton MD Primary Care Provider Unava ilable Encounter Details Date Type Department Care Team (Late st Contact Info) Description 07/15/2004 Results Only [facility] - Maple conversion [address] [place] [address] Hua Blanton MD Social History Tobacco Use [...] Procedure Name Priority Date/Time Associated Diagnosis Comments LYME ANTIBODY Routine 07/15/2004 13:30 EDT documented in this encounter Results * LYME ANTIBODY (07/15/2004 13:30 EDT) Lyme Ab Neg NEGAT [facility] 07/15/2004 13:3 0 EDT 07/15/2004 17:33 EDT us Hua Blanton MD IMMUNOLOGY AND SEROLOGY YAA MCCORD Final Result [facility] [address] [place] [address] documented in this encounter Visit Diagnoses Not on filedocumented in this encounter Care Teams Wood Floor Refinisher Relationship Specialty Start Date End Date Hua Blanton MD PCP - General 03/12/09 12/15/11 documented as of this encounter
--- OUTSIDE RECORDS SUMMARY | 2024-11-26 14:02 | XMS_ITS | Encounter Summary ---
Author Organization [facility] Address [address] [place] [address] Care Team Providers Care Scarf And Anneal Operator Name Role Phone Hua Blanton MD Primary Care Provider Unava ilable None, Provider Primary Care Provider Unavailabl e Darnell Taylor MD Primary Care Provider [phone] Darnell Taylor MD Primary Care Provider [phone] Lasha Angelo MD Primary Care Provider [phone] Sangita Nolasco MD Primary Care Provider [phone] Encounter Details Date Type Department Care Team (Late st Contact Info) Description 12/13/2004 Before PRISM Converted Visit (Maple) [facility] - Maple conversion [address] [place] [address] Dalton Rodriguez MD [address] [place] [address] Social History Tobacco Use Types Packs/Day Years [...] documented as of this encounter Care Teams Scarf And Anneal Operator Relationship Specialty Start Date End Date Hua Blanton MD PCP - General 03/12/09 12/15/11 None, Provider PCP - General 12/16/11 03/01/12 Darnell Taylor MD [address] [place] [address] PCP - General 03/02/12 07/29/19 Darnell Taylor MD [address] [place], [place] 376[address] PCP - General 07/30/19 01/08/20 Lasha Angelo MD [address] [place], [place] 47[address]81 PCP - General Family Medicine - Primary Care 01/09/20 06/23/21 Sangita Nolasco MD [address] [place], [place] [address] PCP - General 06/24/21 documented as of this encounter
--- OUTSIDE RECORDS SUMMARY | 2024-11-26 14:02 | XMS_ITS | Encounter Summary ---
Author Organization [facility] Address [address] [place] [address] Care Team Providers Care Graphics Artist Name Role Phone Hua Blanton MD Primary Care Provider Unava ilable Encounter Details Date Type Department Care Team (Late st Contact Info) Description 12/13/2004 Before PRISM Converted Visit (Maple) [facility] - Maple conversion [address] [place] [address] Dalton Rodriguez MD [address] [place] [address] Social History Tobacco Use Types Packs/Day Years [...] on filedocumented in this encounter Care Teams Graphics Artist Relationship Specialty Start Date End Date Hua Blanton MD PCP - General 03/12/09 12/15/11 documented as of this encounter
--- OUTSIDE RECORDS SUMMARY | 2024-11-26 14:02 | XMS_ITS | Encounter Summary ---
Author Organization [facility] Address [address] [place] [address] Care Team Providers Care Mandrel Press Hand Name Role Phone Unavailable Primary Care Provider Unavailabl e Encounter Details Date Type Department Care Team (Late st Contact Info) Description 03/01/2006 10:47 EDT Hospital Encounter [address] [address] Randy Booth MD [address] [place] [address], [address] [place] [id number] Social History Tobacco Use Types Packs/Day Years [...] Procedure Name Priority Date/Time Associated Diagnosis Comments URINE MONOCLONAL PROTEIN STUDY (UPEP WITH IMMUNOTYPING) Routine 03/01/2006 12:36 EDT SS-B (LA) ANTIBODY, IGG Routine 03/01/2006 12:10 EDT ZZHN SSA ANTIBODIES BY CLIFF Routine 03/01/2006 12:10 EDT CONNECTIVE TISSUE DISEASE CASCADE, S Routine 03/01/2006 12:10 EDT LYME ANTIBODY Routine 03/01/2006 12:10 EDT PYRUVIC ACID, BLOOD Routine 03/01/2006 1 2:10 EDT LACTIC ACID Routine 03/01/2006 12:10 EDT ALDOLASE Routine 03/01/2006 12:10 EDT SPEP WITH IMMUNOTYPING Routine 03/01/2006 12:10 EDT T4 Routine 03/01/2006 12:10 EDT MYOGLOBIN, SERUM Routine 03/01/2006 12:1 0 EDT FOLATE Routine 03/01/2006 12:10 EDT VITAMIN B12 Routine 03/01/2006 12:10 EDT documented in this encounter Results * MERCED KHANNA,URINE RANDOM (03/01/2006 12:36 EDT) Tot Prot,Ur Random 11 mg/dl [facility] Albumin, Urine 23.1 % [facility] Globulins, Urine 76.9 % [facility] Comments Electrophoresis screening performed, immunofixation to follow. [facility] Immunofixatio n,Urine Interpretation: Negative for free monoclonal light chains. Interpreted by: Rock Winkler MD, PhD Reference Range: Negative for free monoclonal light chains. [facility] 03/01/2006 12:3 6 EDT 03/01/2006 12:38 EDT Randy Booth MD URINALYSIS ORDERABLES Final Resu lt Performing Organization Address [email or web address] de Phone Number [facility] [address] [place] [address] * T4 (03/01/2006 12:10 EDT) Pathologist [facility] T4, Total 7.4 4.5 - 10.9 ug/dL [facility] 03/01/2006 12:1 0 EDT 03/01/2006 12:39 EDT Randy Booth MD CHEMISTRY & BLOOD GAS ORDERABLES Final Result Performing Organization Address [facility] de Phone Number [facility] [address] [place] [address] * SS-B/LA ANTIBODY, IGG, SERUM (03/01/2006 12:10 EDT) [facility] Autoantibodies to SS B/La <1.0Unit: U(Note) -- EXPECTED VALUES -- ? (Ref Range) <25.0 ? Test Performed by: ? [facility] Dpt of Lab Med and Pathology ? [address] [facility], [place] [address] ? Senior Java Programmer: Kamila Starks M.D. ? [facility] 03/01/2006 12:1 0 EDT 03/01/2006 12:39 EDT Randy Booth MD IMMUNOLOGY AND SEROLOGY ORDERABL ES Final Result [facility] [address] [place] [address] * SS-A/RO ANTIBODY, IGG, SERUM (03/01/2006 12:10 EDT) Autoantibodies to SS A/Ro <1.0Unit: U(Note) -- EXPECTED VALUES -- ? (Ref Range) <25.0 ? Test Performed by: ? [facility] Dpt of Lab Med and Pathology ? [address] , [place] [address] ? Senior Java Programmer: Kamila Starks M.D. ? [facility] 03/01/2006 12:1 0 EDT 03/01/2006 12:39 EDT us Rup Tandan MD IMMUNOLOGY AND SEROLOGY ORDERABL ES Final Result [facility] [address] [place] [address] * (ABNORMAL) PYRUVIC ACID, BLOOD (03/01/2006 12:10 EDT) Pyruvic Acid, Blood 0.07Unit: mmol/L(Note) -- EXPECTED VALUES -- ? (Ref Range) 0.08 to 0.16 ? Test Performed by: ? [facility] Dpt of Lab Med and Pathology ? [address] [place] [address] ? Senior Java Programmer: Kamila Starks M.D. ?(L) [facility] 03/01/2006 12:1 0 EDT 03/01/2006 12:39 EDT us Randy Booth MD CHEMISTRY & BLOOD GAS ORDERABLES Final Result [facility] [address] [place] [address] * MYOGLOBIN (03/01/2006 12:10 EDT) Myoglobin, Serum 0.04Unit: ug/mL(Note) -- EXPECTED VALUES -- ? (Ref Range) 0.00 to 0.09 ? Test Performed by: ? [facility] Dpt of Lab Med and Pathology ? [address] [place] [address] ? Senior Java Programmer: Kamila Starks M.D. ? [facility] 03/01/2006 12:1 0 EDT 03/01/2006 12:39 EDT Randy Booth MD CHEMISTRY & BLOOD GAS ORDERABLES Final Result Performing Organization Address [facility] [[email or web address]] de Phone Number [facility] [address] [place] [address] * LYME ANTIBODY (03/01/2006 12:10 EDT) Pathologist [facility] Lyme Ab Neg NEGAT [facility] 03/01/2006 12:1 0 EDT 03/01/2006 12:39 EDT Randy Booth MD IMMUNOLOGY AND SEROLOGY ORDERABL ES Final Result Performing Organization Address [facility] de Phone Number [facility] [address] [place] [address] * LACTIC ACID (03/01/2006 12:10 EDT) Pathologist [facility] Lactic Acid 1.2 0.7 - 2.1 mmol/L [facility] 03/01/2006 12:1 0 EDT 03/01/2006 12:39 EDT Randy Booth MD CHEMISTRY & BLOOD GAS ORDERABLES Final Result Performing Organization Address [facility] [[email or web address]] de Phone Number [facility] [address] [place] [address] * IMMUNOFIXATION/SPEP (03/01/2006 12:10 EDT) Total Protein 6.9 6.5 - 8.3 g/dl [facility] Albumin, SPEP 61.0 49.0 - 61.0 % [facility] Alpha-1 % 4.5 2.4 - 4.9 % [facility] Alpha 2, SPEP 12.6 10.0 - 19.0 % [facility] Beta, SPEP 10.4 9.0 - 14.0 % [facility] Gamma, SPEP 11.4 11.0 - 21.0 % [facility] Comments, SPEP Copy of electrophoretic scan to follow [facility] Immunofixatio n,serum Interpretation: Negative for monoclonal immunoglobulins. Interpreted by: Rock Winkler MD, PhD Reference Range: Negative for monoclonal immunoglobulins. [facility] 03/01/2006 12:1 0 EDT 03/01/2006 12:39 EDT Randy Booth MD CHEMISTRY & BLOOD GAS ORDERABLES Final Result Performing Organization Address [facility] [[email or web address]] de Phone Number [facility] [address] [place] [address] * FOLATE (03/01/2006 12:10 EDT) [facility] Folate 16.2 ng/mL [facility] Comment: Deficient: ??Less than 3.4 ng/mL Indeterminate: ??3.4-5.4 ng/mL Normal: ??Greater than 5.4 ng/mL 03/01/2006 12:1 0 EDT 03/01/2006 12:39 EDT Randy Booth MD CHEMISTRY & BLOOD GAS ORDERABLES Final Result Performing Organization Address [email or web address] de Phone Number [facility] [address] [place] [address] * ANTI DNA (SINGLE STRAND) (03/01/2006 12:10 EDT) [facility] Anti DNA (Single Stranded) 25Unit: U/mL(Note) REFERENCE RANGE: <69 U/mL ? INTERPRETIVE CRITERIA: ? <69 U/mL ??Antibody Not Detected ? > or = 69 U/mL ??Antibody Detected ? Antibody to single stranded (ss)DNA is present in ? numerous systemic rheumatic diseases including ? systemic lupus erythematosis (SLE), rheumatoid ? arthritis, chronic active hepatitis, primary ? biliary cirrhosis and drug-induced lupus-like ? syndrome. Antibody to ssDNA may be found in ? PHILIP-negative sera from SLE patients. ? Serum containing antibodies recognizing sokaogon ? (double-stranded) DNA may give a false positive ? result in this assay. ? Test Performed by: [facility] ? [address] ? [place] [address] ? [facility] 03/01/2006 12:1 0 EDT 03/01/2006 12:39 EDT Randy Booth MD IMMUNOLOGY AND SEROLOGY ORDERABL ES Final Result Performing Organization Address [email or web address]] de Phone Number [facility] [address] [place] [address] * VITAMIN B12 (03/01/2006 12:10 EDT) [facility] Vitamin B-12 457 250 - 1100 pg/ml [facility] 03/01/2006 12:1 0 EDT 03/01/2006 12:39 EDT Randy Booth MD CHEMISTRY & BLOOD GAS ORDERABLES Final Result Performing Organization Address [email or web address]] de Phone Number [facility] [address] [place] [address] * ALDOLASE (03/01/2006 12:10 EDT) Pathologist [facility] Aldolase 5.7Unit: U/L(Note) -- EXPECTED VALUES -- ? (Ref Range) <7.4 ? Test Performed by: ? [facility] Dpt of Lab Med and Pathology ? [address] [facility], [place] [address] ? Senior Java Programmer: Kamila Starks M.D. ? [facility] 03/01/2006 12:1 0 EDT 03/01/2006 12:39 EDT us Rufelipe Booth MD CHEMISTRY & BLOOD GAS ORDERABLES Final Result [facility] [address] [place] [address] documented in this encounter Visit Diagnoses Not on filedocumented in this encounter Additional Health Concerns Infection Onset Date Last Indicated Resolved Time R/O COVID-19 04/15/2020 04/15/2020 04/20/2020 22:1 6 EDT documented as of this encounter
--- OUTSIDE RECORDS SUMMARY | 2024-11-26 14:02 | XMS_ITS | Encounter Summary ---
Author Organization [facility] Address [address] [place] [address] Care Team Providers Care Core Blower Name Role Phone Darnell Taylor MD Primary Care Provider [phone] Encounter Details Date Type Department Care Team (Latest Contact Info) Description 03/02/2012 11:07 EDT - 03/02/2012 23:59 EDT Hospital Encounter [facility] [address] [place] [address] All Carmichael MD [address] [place] [address], [address] [place] [address] Discharge Disposition: Home or Self Care Social [...] this encounter Medications at Time of Discharge amitriptyline (ELAVIL) 10 mg tablet Take 1 Tab by mouth at bedtime for 30 days. 30 Tab 3 02/20/2012 03/21/2012 cyclobenzaprine (FLEXERIL) 10 mg tablet Take 1 [...] on filedocumented in this encounter Care Teams Core Blower Relationship Specialty Start Date End Date Darnell Taylor MD [address] [place] [id number] PCP - General 03/02/12 07/29/19 documented as of this encounter
--- OUTSIDE RECORDS SUMMARY | 2024-11-26 14:02 | XMS_ITS | Encounter Summary ---
Author Organization [facility] Address [address] [place] [address] Care Team Providers Care Controller [employer] Name Role Phone Unavailable Primary Care Provider Unavailabl e Encounter Details Date Type Department Care Team (Latest Contact Info) Description 04/27/2006 10:05 EDT - 04/27/2006 11:59 EDT Hospital Encounter [facility] - Other [address] [place] [address] Hua Blanton MD Discharge Disposition: Auto Discharge [...] Procedure Name Priority Date/Time Associated Diagnosis Comments HOLD PURPLE TOP Routine 04/27/2006 11:10 EDT PSA SCREEN Routine 04/27/2006 11:10 EDT documented in this encounter Results * PSA SCREEN (04/27/2006 11:10 EDT) PSA 2.9 0 - 3.5 ng/ml [facility] Comment: Serum PSA concentration should not be interpreted as absolute evidence for the presence or absence of malignant disease. Assayed utilizing [employer] chemiluminescent technology. Values obtained by using different assay methods cannot be used interchangeably. PREVIOUS PSA RESULT ON 09/30/05 WAS 3.3 AND ON 07/05/05 WAS 3.6 04/27/2006 11:1 0 EDT 04/27/2006 14:51 EDT Hua Blanton MD CHEMISTRY & BLOOD GAS ORDERA BLES Final Result Performing Organization Address [facility] Co de Phone Number [facility] [address] [place] [address] * HOLD PURPLE TOP (04/27/2006 11:10 EDT) Hold Purple Top EDTA for hematology will be discarded after 48 hours, differential not available after 12 hours. [facility] 04/27/2006 11:1 0 EDT 04/27/2006 14:51 EDT Hua Blanton MD LAB INFO SERVICE AND SUPPORT & PHONE RESULT Final Result Performing Organization Address [facility] Co de Phone Number [facility] [address] [place] [address] documented in this encounter Visit Diagnoses Not on filedocumented in this encounter
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
--- OUTSIDE RECORDS SUMMARY | 2024-11-26 14:02 | XMS_ITS | Encounter Summary ---
Author Organization [facility] Address [address] [place] [address] Care Team Providers Care Pathology Tech Name Role Phone Hua Blanton MD Primary Care Provider Unava ilable Encounter Details Date Type Department Care Team (Latest Contact Info) Description 11/17/2009 9:05 EST - 11/17/2009 23:59 EST Hospital Encounter [facility] [address] [place] [address] Hua Blanton MD Discharge Disposition: Home or [...] Code Departure Means Destination Home or Self Group Home documented in this encounter Plan of Treatment Not on file documented as of this encounter Visit Diagnoses Not on filedocumented in this encounter Care Teams Pathology Tech Relationship Specialty Start Date End Date Hua Blanton MD PCP - General 03/12/09 12/15/11 documented as of this encounter
--- OUTSIDE RECORDS SUMMARY | 2024-11-26 14:02 | XMS_ITS | Encounter Summary ---
Author Organization [facility] Address [address] [place] [address] Care Team Providers Care Grey Goods Tester Name Role Phone Unavailable Primary Care Provider Unavailabl e Encounter Details Date Type Department Care Team (Latest Contact Info) Description 10/23/2008 13:33 EST Hospital Encounter [facility] - Other [address] [place] [address] Kami Blanton MD Discharge Disposition: Home or Self [...] Procedure Name Priority Date/Time Associated Diagnosis Comments SURGICAL PATHOLOGY Routine 01/21/2009 0: 00 EDT COMPLETE BLOOD COUNT Routine 10/23/2008 11:00 EST PSA TOTAL, DIAGNOSTIC Routine 10/23/2008 11:00 EST LIPID PROFILE (INCLUDES CHOLESTEROL, TRIGLYCERIDES, HDL, LDL) Routine 10/23/2008 11:00 EST COMPREHENSIVE METABOLIC PANEL (CMP) Routine 10/23/2008 11:00 EST documented in this encounter Results * SURGICAL PATHOLOGY (01/21/2009 0:00 EDT) Pathology Report: SURGICAL PATHOLOGY REPORT ? Reports generated via electronic interface contain original data; ? however they are lacking the format of the original report. ? Caution should be taken when reading/interpreti ng unformatted reports. ? Name: ? BARRETT NGO ? Accession #: ? [id number] ? : ? 1945 (Age: 63) ??M ? Collect Date: ? 01/21/2009 ? Location: ? [facility] ? Receive Date: ? 01/21/2009 ? Provider: MARGOTH JOB MD ? Copy to: KAMI RUBMAN MD ? Final Pathologic Diagnosis: ? A. ?Colon, cecum, polypectomy: ? 1. ?Tubular adenoma. ? B. ?Colon, rectosigmoid junction, polypectomy: ? 1. ?Colonic mucosa with surface hyperplastic changes. ??See comment. ? Comment: ? Deeper levels of specimen (B) were examined. (Dr. Muñoz)/mpl ? Document reviewed and electronically signed by: ? MAGALIS TRIVEDI MD ? Report ??Date: 01/26/2009 15:31 ? By the signature above, the attending physician certifies that he/she has ? personally conducted a gross and/or microscopic examination of the described ? specimens and rendered or confirmed the above diagnosis. ? Specimen(s) Received: ? A. ?Cecum polyp ? B. ? Rectosigmoid junction polyp ? Clinical History: ? Colon polyps ? Gross Description: ? Received in Stacia's labelled Madeleine, Barrett and cecum polyp is a wilde-pink, irregular, soft tissue measuring 0.2 x 0.2 x 0.2 cm. ??The specimen is submitted entirely as (A). ? Received in Stacia's labelled Madeleine, Barrett and rectosigmoid junction polyp is a wilde-pink, irregular, soft tissue measuring 0.3 x 0.2 x 0.2 cm. ??The specimen is submitted entirely as (B). ??(AJacob Encinas)/eric ? End of Report ? [facility] 01/21/2009 01/21/2009 8:5 9 EDT us Margoth Renee MD PATHOLOGY ORDERABLES [place] bower Result [facility] [address] [place] [address] * PSA (10/23/2008 11:00 EST) PSA 3.4 0 - 4.5 ng/ml [facility] Comment: Serum PSA concentration should not be interpreted as absolute evidence for the presence or absence of malignant disease. Assayed utilizing [employer] chemiluminescent technology. Values obtained by using different assay methods cannot be used interchangeably. 10/23/2008 11:0 0 EST 10/23/2008 13:34 EST Kami Blanton MD CHEMISTRY & BLOOD GAS ORDERA BLES Final Result Performing Organization Address [facility] de Phone Number [facility] [address] [place] [address] * HEMAGRAM (10/23/2008 11:00 EST) WBC 4.16 4.0 - 10.4 K/cmm [facility] RBC 4.55 4.36 - 5.78 M/cmm [facility] Hemoglobin 14.5 13.8 - 17.3 gm/dl [facility] HCT 40.9 39.5 - 50.2 % [facility] MCV 90 81 - 95 fl [facility] MCH 31.8 27.6 - 33.0 pg [facility] MCHC 35.3 32.8 - 36.4 gm/dl [facility] PLT 210 141 - 320 K/cmm [facility] RDW-CV 13.7 11.8 - 14.1 % [facility] 10/23/2008 11:0 0 EST 10/23/2008 13:34 EST Kami Blanton MD HEMATOLOGY & PF4 ORDERABLES Final Result Performing Organization Address [facility] de Phone Number [facility] [address] [place] [address] * LIPID PROFILE (10/23/2008 11:00 EST) Cholesterol 203 mg/dl [facility] Comment: Desirable:<200 Borderline High:200-239 High:>qo=830 Triglycerides 101 35 - 160 mg/dl [facility] HDL 69 mg/dl [facility] Comment: Low:<40 High(Desirable):>or=60 LDL, Calculated 114 mg/dl [facility] Comment: Optimal:<100 Above optimal:100-129 Borderline High:130-159 High:160-189 Very High:>jr=469 Chol/HDL Ratio 2.9 [facility] Fasting? No [facility] 10/23/2008 11:0 0 EST 10/23/2008 13:34 EST Kami Blanton MD CHEMISTRY & BLOOD GAS ORDERA BLES Final Result [facility] [address] [place] [address] * COMPREHENSIVE METABOLIC PANEL (10/23/2008 11:00 EST) Potassium 4.1 3.5 - 5.0 mEq/L [facility] Sodium 141 136 - 145 mEq/L [facility] Chloride 102 96 - 110 mEq/L [facility] CO2 28 24 - 32 mEq/L [facility] Alkaline Phosphatase 78 38 - 126 U/L [facility] Bilirubin, Total <0.5 0.2 - 1.3 mg/dl [facility] AST 26 15 - 46 U/L [facility] ALT 39 21 - 72 U/L [facility] Albumin 4.6 3.4 - 4.9 g/dl [facility] Total Protein 6.9 6.5 - 8.3 g/dl [facility] Creatinine 0.94 0.7 - 1.5 mg/dl [facility] GFR, Calculated >60 ml/min/1.7 3m2 [facility] BUN 13 10 - 26 mg/dl [facility] Calcium 9.4 8.5 - 10.5 mg/dl [facility] Calculated Calcium 9.2 8.5 - 10.5 mg/dl [facility] Glucose, Serum 92 70 - 100 mg/dl [facility] Fasting? No [facility] 10/23/2008 11:0 0 EST 10/23/2008 13:34 EST Kami Blanton MD CHEMISTRY & BLOOD GAS ORDERA BLES Final Result [facility] [address] [place] [address] documented in this encounter Visit Diagnoses Not on filedocumented in this encounter
--- OUTSIDE RECORDS SUMMARY | 2024-11-26 14:02 | XMS_ITS | Encounter Summary ---
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 Encounter Details Date Type Department Care Team (Late st Contact Info) Description 08/14/2012 18:26 EDT - 08/14/2012 21:50 EDT Emergency [facility] Emergency Department - [facility] [address] [place] [address] Liliana Win MD PhD [address] [facility], [address] [place] [address] Emergency, MD Lilliam Abdominal pain, other specified site Discharge Disposition: Home or Self Care Social [...] Sign Reading Time Taken Comments Blood Pressure 124/79 08/14/20122132 EDT Pulse 64 08/14/2012 2133 EDT Temperature 36.1 ??C (97 ??F) 08/14/2012 1836 EDT Respiratory Rate 18 08/14/2012 1836 EDT Oxygen Saturation 98% 08/14/2012 1836 EDT Inhaled Oxygen Concentration - - Weight - - Height - - Body Mass Index - - documented in this encounter Discharge Instructions * Discharge Instructions* Liliana Win MD - 08/14/2012 21:36 EDT Return to the ED for any worsening symptoms or new concerns * Attachments The following attachments cannot be sent through Care Everywhere. * ABDOMINAL PAIN: AFTER YOUR VISIT TO THE EMERGENCY ROOM (KYRGYZ) documented in this encounter Medications at Time of Discharge pantoprazole (PROTONIX) 40 mg tablet Take 40 mg by mouth at bedtime. Reported on 10/25/2016 01/13/2020 UNABLE TO FIND Med Name: [id number] documented as of this encounter Discharge Disposition Disposition Code Departure Means Destination Home or Self Care Walk-out Home documented in this encounter ED Notes * Sonny Palafox RN - 08/14/20122002 EDT Patient transported to CT scan via stretcher. * Liliana Win MD - 08/14/2012 1944 EDT DOS: 08/14/2012 Chief Complaint Patient presents with ??? 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 The patient is a 66 y.o. male who presents today with Abdominal Pain HPI Review of Systems Past Medical History Diagnosis Date ??? Hypertension Past Surgical History Procedure Date ??? Shoulder surgery No Known Allergies History Substance Use Topics ??? Smoking status: Never Smoker ??? Smokeless tobacco: Not on file ??? Alcohol Use: No No family history on file. Vital Signs Temp: 36.1 ??C (97 ??F) Temp src: Tympanic Pulse: 74 Resp: 18 SpO2: 98 % BP: 131/81 mmHg BP Device: BP Machine Physical Exam Radiology orders: CT ABDOMEN, PELVIS W CONTRAST CT ABDOMEN AND PELVIS (Results Pending) CT ABDOMEN, PELVIS W CONTRAST (Results Pending) Procedures ED Course: A medical screening exam was performed. PROVIDER NOTE: History obtained from patient. This is problem started today. The problem is constant. The problem has not changed since onset. Nothing worsens the symptoms. Nothing relieves the symptoms. Pt complains of abdominal pain. Gradual onset. No urinary symptoms. No fevers or chills. No chest pain or SOB. Locaed PMH: History reviewed with patient. Nursing notes reviewed. Denies drug abuse. No pertinent family history. Review of Systems All other systems reviewed and are negative except as noted in HPI. Physical Exam Nursing note and vitals reviewed. Constitutional: appears well-developed and well-nourished. HENT: Head: Normocephalic and atraumatic. Right Ear: External ear normal. Left Ear: External ear normal. Nose: Nose normal. Mouth/Throat: Oropharynx is clear and moist. Eyes: Conjunctivae and extraocular motions are normal. Pupils are equal, round, and reactive to light. Right eye exhibits no discharge. Left eye exhibits no discharge. Neck: Normal range of motion. Neck supple. No tracheal deviation present. Cardiovascular: Normal rate, regular rhythm, normal heart sounds and intact distal pulses. Pulses equal and symmetric in all 4 extremities. No murmur heard. Pulmonary/Chest: Effort normal and breath sounds normal. No respiratory distress. Abdominal: Soft. There is no splenomegaly or hepatomegaly. + diffuse tenderness. No guarding. No rebound. No CVA tenderness. No palpable mass. Musculoskeletal: Upper extremities. Normal range of motion. No clubbing. Lower extremities. Normal range of motion. No edema. Neurological: alert, normal strength. not disoriented. No sensory deficit. Skin: Skin is warm and dry. No rash noted. Psychiatric: normal mood and affect. behavior is normal. Assessment: Abdominal pain of unknown etiology. Broad ddx considered. Results: Pulse O2: Within normal limits LABS: Reviewed and interpreted. CT abdomen and pelvis: Normal study. Normal aorta. Normal kidneys. Appendix normal. No mass. No free fluid. No diverticulitis. No abdominal aortic aneurysm, urinary calculi, hydronephrosis or dilatedureter. The study was independently viewed by me and interpreted contemporaneously by me. Prior studies were not available for comparison. ED course: IVF, analgesia Reassessed: Pt improved. Smiling, feeling better, aislinn PO fluids, ambulatory with a steady gait, understands return precautions, will f/u PCP. Disposition: No disposition on file The patient's pain was managed to an adequate level weighing risk vs. benefit of further medications. Upon departure from the Emergency Department, the patient's pain was 0 on a zero to ten scale. Condition at departure from the Emergency Department: Improved Discharge Prescriptions New Prescriptions No Discharge Prescriptions for this patient MDM No diagnosis found. PCP: ZHAO TAYLOR MD 08/14/2012 19:44 * Mary Jo Webber - 08/14/2012 1826 EDT TCALL: [facility] [birth year] [facility] REFERS PT TO E.D. FOR EVAL. CC: ABD PAIN, R/O APPY VS HERNIA (GMD) documented in this encounter Miscellaneous Notes * Scanned Note-Null - LEAD BURNER, SCAN 2 - 08/16/2012 0715 EDT documented in this encounter Plan of Treatment Not on file documented as of this encounter Procedures Procedure Name Priority Date/Time Associated Diagnosis Comments CT ABDOMEN, PELVIS W CONTRAST 08/14/2012 20:19 EDT DIFFERENTIAL Routine 08/14/2012 19:16 EDT COMPLETE BLOOD COUNT Routine 08/14/2012 19:16 EDT COMPLETE BLOOD COUNT AND DIFFERENTIAL STAT 08/14/2012 19:16 EDT LIPASE STAT 08/14/2012 19:16 EDT COMPREHENSIVE METABOLIC PANEL (CMP) STAT 08/14/2012 19:16 EDT documented in this encounter Results * CT ABDOMEN, PELVIS W CONTRAST (08/14/2012 20:19 EDT) Anatomical Region Laterality Modality Other 08/14/2012 20:1 9 EDT 08/15/2012 8:56 EDT Narrative 08/15/2012 8:[address] ABDOMEN, PELVIS ??Aug 14, 2012 08:19:00 PM Signs and Symptoms/Comments: ??ABDOMINAL PAIN, RLQ Comparison: 12/31/2004. Technique: Helical images were obtained from the domes of the diaphragm to the iliac crests. Technique Pelvis: Immediately after the above preparation, axial images were obtained from the iliac crests to the ischial tuberosities. During the exam, intravenous administration of 100 cc of 370mg % nonionic contrast at the rate of 2 cc/second was administered. Prior to the exam, water soluble rectal contrast was administered by enema. ?? Findings: Visualized portions of the lung bases are clear. No acute bony abnormality is identified, there is [...] small, but otherwise unremarkable. There is no intraperitoneal free fluid or free air. There is no significant diverticular disease. There is mild atherosclerotic calcification of the aorta and its branches without aneurysmal dilatation. No retroperitoneal adenopathy is identified. The urinary bladder is unremarkable. The prostate is moderately enlarged, . Impression: 1. Mild fatty infiltration of the liver. 2. Elevating the bladder base no significant bowel pathology. 3. Mild atherosclerotic disease. 4. The prostate is enlarged, moderate. Zhao Sherman discussed the findings with LILIANA WIN MD shortly after completion of the study. I have personally reviewed the images and the above interpretation and agree with the findings. Procedure Note Zhao Sherman MD - 08/15/2012 CT ABDOMEN, PELVIS Aug 14, 2012 08:19:00 PM Signs and Symptoms/Comments: ABDOMINAL PAIN, RLQ Comparison: 12/31/2004. Technique: Helical images were obtained from the domes of the diaphragm to the iliac crests. Technique Pelvis: Immediately after the above preparation, axial images were obtained from the iliac crests to the ischial tuberosities. During the exam, intravenous administration of 100 cc of 370mg % nonionic contrast at the rate of 2 cc/second was administered. Prior to the exam, water soluble rectal contrast was administered by enema. Findings: Visualized portions of the lung bases are clear. No acute bony abnormality is identified, there is [...] small, but otherwise unremarkable. There is no intraperitoneal free fluid or free air. There is no significant diverticular disease. There is mild atherosclerotic calcification of the aorta and its branches without aneurysmal dilatation. No retroperitoneal adenopathy is identified. The urinary bladder is unremarkable. The prostate is moderately enlarged, . Impression: 1. Mild fatty infiltration of the liver. 2. Elevating the bladder base no significant bowel pathology. 3. Mild atherosclerotic disease. 4. The prostate is enlarged, moderate. Zhao Sherman discussed the findings with LILIANA WIN MD shortly after completion of the study. I have personally reviewed the images and the above interpretation and agree with the findings. us Liliana Win MD PhD IMG CT ORDERABLES Final Res ult * DIFFERENTIAL (08/14/2012 19:16 EDT) % Neutrophils 63.4 45.5 - 79.7 % [facility] % Lymphocytes 27.6 15.0 - 46.8 % [facility] % Monocytes 6.0 1.8 - 12.0 % [facility] % Eosinophils 2.6 0.6 - 6.9 % [facility] % Basophils 0.4 0.2 - 1.4 % [facility] ABS Neutrophils 3.31 2.20 - 8.85 K/cmm [facility] ABS Lymphs 1.44 1.09 - 3.30 K/cmm [facility] ABS Monocytes 0.31 0.1 - 0.8 K/cmm [facility] ABS Eosinophils 0.13 0.03 - 0.61 K/cmm [facility] ABS Basophils 0.02 0.01 - 0.11 K/cmm [facility] Type of Diff: Automated [facility] 08/14/2012 19:1 6 EDT 08/14/2012 19:26 EDT Liliana Win MD PhD HEMATOLOGY & PF4 ORDERABLES Final Result Performing Organization Address City/[facility] Co de Phone Number [facility] [address] [place] [address] * (ABNORMAL) HEMAGRAM (08/14/2012 19:16 EDT) Pathologist [facility] WBC 5.21 4.0 - 10.4 K/cmm [facility] RBC 4.19(L) 4.36 - 5.78 M/cmm [facility] Hemoglobin 13.6(L) 13.8 - 17.3 gm/dl [facility] HCT 38.7(L) 39.5 - 50.2 % [facility] MCV 93 81 - 95 fl [facility] MCH 32.6 27.6 - 33.0 pg [facility] MCHC 35.2 32.8 - 36.4 gm/dl [facility] PLT 197 141 - 320 K/cmm [facility] RDW-CV 13.0 11.8 - 14.1 % [facility] 08/14/2012 19:1 6 EDT 08/14/2012 19:26 EDT Liliana Win MD PhD HEMATOLOGY & PF4 ORDERABLES Final Result Performing Organization Address City/[facility]/ZIP Co de Phone Number [facility] [address] [place] [address] * LIPASE (08/14/2012 19:16 EDT) Lipase 245 0 - 250 U/L [facility] Blood specimen (specimen) 08/14/2012 19:16 EDT 08/14/2012 19:26 EDT Liliana Win MD PhD CHEMISTRY & BLOOD GAS ORDER CAITLYN Final Result Performing Organization Address City/[facility]/ZIP Co de Phone Number [facility] [address] [place] [address] * COMPREHENSIVE METABOLIC PANEL (CMP) (08/14/2012 19:16 EDT) Potassium 3.7 3.5 - 5.0 mEq/L [facility] Sodium 136 136 - 145 mEq/L [facility] Chloride 101 96 - 110 mEq/L [facility] CO2 27 24 - 32 mEq/L [facility] Total Alkaline Phosphatase 63 38 - 126 U/L [facility] Bilirubin, Total 0.6 0.2 - 1.3 mg/dl [facility] AST 30 15 - 46 U/L [facility] ALT 40 21 - 72 U/L [facility] Albumin 4.1 3.4 - 4.9 g/dl [facility] Total Protein 6.8 6.5 - 8.3 g/dl [facility] Creatinine 0.94 0.66 - 1.25 mg/dl [facility] GFR, Calculated >60 >60 ml/min/1.7 3m2 [facility] BUN 11 10 - 26 mg/dl [facility] Calcium 9.2 8.5 - 10.5 mg/dl [facility] Calculated Calcium 9.5 8.5 - 10.5 mg/dl [facility] Glucose, Serum 96 70 - 100 mg/dl [facility] Fasting? Unknown [facility] Blood specimen (specimen) 08/14/2012 19:16 EDT 08/14/2012 19:26 EDT Liliana Win MD PhD CHEMISTRY & BLOOD GAS ORDER CAITLYN Final Result Performing Organization Address City/[facility]/ZIP Co de Phone Number [facility] [address] [place] [address] documented in this encounter Visit Diagnoses Diagnosis Abdominal pain, other specified site documented in this encounter Discontinued Medications Medication Sig Discontinue Reason Start Date End Da te cyclobenzaprine (FLEXERIL) 10 mg tablet Take 1 Tab by mouth 3 times daily as needed for Muscle Spasms. 12/16/2011 08/14/2012 documented as of this encounter Historical Medications * This list may reflect changes made after this encounter. UNABLE TO FIND Med Name: 01/02/2013 added in this encounter Orders Nursing Count Last Ordered Date First Orde red Date INSERT PERIPHERAL IV 1 08/14/2012 documented in this encounter Care Teams Picking Machine Operator Helper Relationship Specialty Start Date End Date Zhao Taylor MD [address] [place] [id number] PCP - General 03/02/12 07/29/19 documented as of this encounter
--- OUTSIDE RECORDS SUMMARY | 2024-11-26 14:02 | XMS_ITS | Encounter Summary ---
Author Organization [facility] Address [address] [place] [address] Care Team Providers Care Skidder Operator Name Role Phone Unavailable Primary Care Provider Unavailabl e Encounter Details Date Type Department Care Team (Latest Contact Info) Description 09/30/2005 23:01 EST Hospital Encounter [facility] - Other [address] [place] [address] Hua Blanton MD Discharge Disposition: Home or [...] Associated Diagnosis Comments HOLD PURPLE TOP Routine 09/30/2005 11:30 EST PSA TOTAL, DIAGNOSTIC Routine 09/30/2005 11:30 EST documented in this encounter Results * PSA (09/30/2005 11:30 EST) PSA 3.3 0 - 3.5 ng/ml [facility] Comment: Serum PSA concentration should not be interpreted as absolute evidence for the presence or absence of malignant disease. Assayed utilizing [employer] chemiluminescent technology. Values obtained by using different assay methods cannot be used interchangeably. PREVIOUS PSA RESULT ON 07/05/05 WAS 3.6 09/30/2005 11:3 0 EST 09/30/2005 13:16 EST Hua Blanton MD CHEMISTRY & BLOOD GAS ORDERA BLES Final Result Performing Organization Address [facility] de Phone Number [facility] [address] [place] [address] * HOLD PURPLE TOP (09/30/2005 11:30 EST) Hold Purple Top EDTA for hematology will be discarded after 48 hours, differential not available after 12 hours. [facility] 09/30/2005 11:3 0 EST 09/30/2005 13:16 EST Hua Blanton MD LAB INFO SERVICE AND SUPPORT & PHONE RESULT Final Result Performing Organization Address [facility] Co de Phone Number [facility] [address] [place] [address] documented in this encounter Visit Diagnoses Not on filedocumented in this encounter
--- OUTSIDE RECORDS SUMMARY | 2024-11-26 14:02 | XMS_ITS | Encounter Summary ---
Author Organization [facility] Address [address] [place] [address] Care Team Providers Care Weasand Trimmer Name Role Phone Hua Blanton MD Primary Care Provider Unava ilable Encounter Details Date Type Department Care Team (Latest Contact Info) Description 05/30/2011 13:07 EDT - 05/30/2011 13:08 EDT Hospital Encounter [facility] - [address] [address] Hua Blanton MD Discharge Disposition: Home or [...] on filedocumented in this encounter Care Teams Weasand Trimmer Relationship Specialty Start Date End Date Hua Blanton MD PCP - General 03/12/09 12/15/11 documented as of this encounter
--- OUTSIDE RECORDS SUMMARY | 2024-11-26 14:02 | XMS_ITS | Encounter Summary ---
Author Organization [facility] Address [address] [place] [address] Care Team Providers Care Lithographic Plate Maker Name Role Phone Hua Blanton MD Primary Care Provider Unava ilable Encounter Details Date Type Department Care Team (Late st Contact Info) Description 05/03/2006 Before PRISM Converted Visit (Maple) [facility] - Maple conversion [address] [place] [address] Randy Booth MD [address] [facility], [address] [place] [address] Social History Tobacco Use Types Packs/Day Years Used Date Smoking Tobacco: Never Assessed Sex and Gender Information Value Date Recorded Sex Assigned at Male 03/18/2022 9:53 EDT Legal Sex Male 18:08 EST Gender Identity Male 09/16/2019 15:02 EST Sexual Orientation Not on file documented as of this encounter Progress Notes * Randy Booth MD - 10/09/2009 0541 EST NEUROLOGY HEALTH CARE SERVICE PROGRESS/FOLLOWUP NOTE - 05/03/2006 PHYSICIANS AT [facility] DICTATION Problem: (__) Probable fibromyalgia. This patient was seen in conjunction with Dr. Vic Syed, neurology resident in the clinic today. Chief Complaint: Diffuse muscle and joint pain. History of present illness, interval history, past history, review of systems, medications, allergies, social history and family history are as documented by Dr. Syed. Assessment/Plan: Discussed case with Dr. Syed, and I agree with her examination findings and management plan except that the patient is tender in all fibromyalgia points on examination today. Signed by Randy Booth MD 05/23/2006 08:38 ARup Alcira Booth MD Randy Booth MD - MD Emmy A - hw Job ID: [id number] Document ID: [id number] cc: Hua Blanton MD documented in this encounter Plan of Treatment Not on file documented as of this encounter Visit Diagnoses Not on filedocumented in this encounter Care Teams Lithographic Plate Maker Relationship Specialty Start Date End Date Hua Blanton MD PCP - General 03/12/09 12/15/11 documented as of this encounter
--- OUTSIDE RECORDS SUMMARY | 2024-11-26 14:03 | XMS_ITS | Encounter Summary ---
Author Organization [facility] Desirae vel[address]quez [place] [address] Care Team Providers Care Wall Steamer Name Role Phone Jesika Harmon BHARGAV Primary Care Provider [phone] Encounter Details Date Type Department Care Team (Latest Contact Info) Description 10/23/2023 1:04 PM EST - 10/23/2023 5:43 PM EST Hospital En[place] [address] Marilee Brambila MD [facility] [place] [address] Discharge Disposition: Home Social History Tobacco Use Types Packs/Day Years Used Date Smoking Tobacco: Former Cigarettes 1 2 1 965 - 1966 Smokeless Tobacco: Never Tobacco Cessation:Counseling Given: Not Answered Alcohol Use Standard Drinks/Week Comments Yes 7 (1 standard drink = 0.6 oz pur e alcohol) Sex and Gender Information Value Date Recorded Sex Assigned at Not on file Gender Identity Not on file Sexual Orientation Not on file documented as of this encounter Last Filed Vital Signs Vital Sign Reading Time Taken Comments Blood Pressure 122/85 10/23/2023 5:20 PM EST Pulse 64 10/23/2023 4:50 PM EST Temperature 35.9 ??C (96.7 ??F) 10/23/2023 1:25 PM ES T Respiratory Rate 16 10/23/2023 5:20 PM EST Oxygen Saturation 98% 10/23/2023 5:20 PM EST Inhaled Oxygen Concentration - - Weight 80.3 kg (177 lb) 10/23/2023 1:25 PM EST Height 172.7 cm (5' 8) 10/23/2023 1:25 PM EST Body Mass Index 26.91 10/23/2023 1:25 PM EST documented in this encounter Discharge Instructions * Discharge Instructions* Joana Malhotra RN - 10/23/2023 5:08 PM EST Upper Endoscopy (EGD) and Colonoscopy: What to Expect at Home Your Recovery After you have an EGD and colonoscopy, you will stay at the clinic for 1 to 2 hours until the medicines wear off. Then you can go home. But you will need to arrange for a ride. Your doctor will tell you when you can eat and do your other usual activities. Your doctor will talk to you about when you will need your next colonoscopy. Your doctor can help you decide how often you need to be checked. This will depend on the results of your test and your risk for colorectal cancer. You may have a sore throat for a day or two after the test. After the test, you may be bloated or have gas pains. You may need to pass gas. If a biopsy was done or a polyp was removed, you may have streaks of blood in your stool (feces) for a few days. Problems such as heavy rectal bleeding may notoccur until several weeks after the test. This isn't common. But it can happen after polyps are laura salma. This care sheet gives you a general idea about how long it will take for you to recover. But each person recovers at a different pace. Follow the steps below to get better as quickly as possible. How can you care for yourself at home? Activity Rest when you feel tired. You can do your normal activities when it feels okay to do so. Diet Follow your doctor's directions for eating. Unless your doctor has told you not to, drink plenty of fluids. This helps to replace the fluids that were lost during the colon prep. Do not drink alcohol. Medicines If you have a sore throat the day after the test, use an oouy-ktw-emasgdk spray or lozenges to numbyour throat. Warm salt water gargles can also help the discomfort. Your doctor will tell you if and when you can restart your medicines. He or she will also give you instructions about taking any new medicines. If you take blood thinners, such as warfarin (Coumadin), clopidogrel (Plavix), or aspirin, be sure to talk to your doctor. He or she will tell you if and when to start taking those medicines again. Make sure that you understand exactly what your doctor wants you to do. If polyps were removed or a biopsy was done during the test, your doctor may tell you not to take aspirin or other anti-inflammatory medicines for a few days. These include ibuprofen (Advil, Motrin) and naproxen (Aleve). Other instructions for patients who received sedation: You may have received medications during the procedure which effect your judgement and reaction time. For your safety, do not drive or operate machinery until the medicine wears off and you can think clearly. Your doctor may tell you not to drive or operate machinery until the day after your test. Do not sign legal documents or make major decisions until the medicine wears off and you can think clearly. The anesthesia can make it hard for you to fully understand what you are agreeing to. Be careful on stairs and when standing up quickly as you may be unsteady on your feet. IV site: Slight redness or tenderness is normal. You can use a warm compress if you would like. If tenderness and/or redness increase or if foul drainage occurs, please contact your doctor. Please call [phone] before 8pm Mon-Fri with problems, questions, or concerns. If you call after 8pm or on weekends, call the Hospital at [phone] and ask for the Boilerhouse Mechanic lion tamer and the dry box operator will contact that person for you. When should you call for help? Call 514 anytime you think you may need emergency care. For example, call if: You passed out (lost consciousness). You pass maroon or bloody stools. You have trouble breathing. Call your doctor now or seek immediate medical care if: You have pain that does not get better after you take pain medicine. You are sick to your stomach or cannot drink fluids. You have new or worse belly pain. You have blood in your stools. You have a fever. You cannot pass stools or gas. Your throat still hurts after a day or two. Your throat still hurts after a day or two. Watch closely for changes in your health, and be sure to contact your doctor if you have any problems. Where can you learn more? You can view health information on [employer], your personal patient account. Log in or sign up today. Content Version: 12.2 ?? 3440-2207 [employer]. Care instructions adapted under license by [facility]. If you have questions about a medical condition or this instruction, always ask your healthcare professional. [employer] disclaims any warranty or liability for your use of this information. documented in this encounter Medications at Time of Discharge Medication Sig Dispensed Refills Start Date End Date multivitamin (THERAGRAN) Tablet Take 1 tablet by mouth daily. APPLE CIDER VINEGAR ORAL Take by mouth Daily. omeprazole (PriLOSEC) [address] capsuleIndications:Acute gastric ulcer without hemorrhage or perforation Take 1 capsule by mouth daily. Take 30 min prior to mealtime 90 capsule 3 10/23/2023 aspirin EC 81 mg EC (DR) tablet Take 81 mg by mouth. documented as of this encounter H&P Notes * Marilee Brambila MD - 10/23/2023 2:44 PM EST Patient Name: Barrett Salavdor Patient Age: 77 y.o. Birthdate: 1945 Admit date: 10/23/2023 Attending Physician: Marilee Brambila MD Gastroenterology and Hepatology Pre-Procedure History and Physical Exam Procedure: EGD: Colonoscopy: Indication: dysphagia, GERD, lower abd pain, bleeding, irregular bowel habits There is no problem list on file for this patient. EXAM: HEENT: Airway examined, oropharynx clear Mallampati Score: II (soft palate, uvula, fauces visible) LUNGS: Clear to auscultation HEART: Regular rate and rhythm, normal S1, S2 ABDOMEN: Normal bowel sounds, soft, non tender, non distended, A/P Proceed with the planned endoscopic procedure. ASA 2 - Patient with mild systemic disease with no functional limitations Sedation Plan: moderate (conscious sedation) Risks and benefits of the procedure explained to the patient. Consent signed. documented in this encounter Plan of Treatment Not on file documented as of this encounter Procedures Procedure Name Priority Date/Time Associated Diagnosis Comments SPECIMEN TO PATHOLOGY Routine 10/23/2023 4:48 PM EST SPECIMEN TO PATHOLOGY Routine 10/23/2023 4:48 PM EST SPECIMEN TO PATHOLOGY Routine 10/23/2023 4:48 PM EST SPECIMEN TO PATHOLOGY Routine 10/23/2023 4:48 PM EST SPECIMEN TO PATHOLOGY Routine 10/23/2023 3:37 PM EST SPECIMEN TO PATHOLOGY Routine 10/23/2023 3:37 PM EST SPECIMEN TO PATHOLOGY Routine 10/23/2023 3:37 PM EST SPECIMEN TO PATHOLOGY Routine 10/23/2023 3:37 PM EST SPECIMEN TO PATHOLOGY Routine 10/23/2023 3:37 PM EST SURGICAL PATHOLOGY REPORT Routine 10/23/2023 3:04 PM EST Colonoscopy, Biopsy ([id number]) 10/23/2023 2:43 PM EST Heartburn Dysphagia, unspecified type Voice hoarseness Lower abdominal pain BRBPR (bright red blood per rectum) Personal history of colonic polyps Upper Gi Endoscopy, Biopsy ([id number]) 10/23/2023 2:43 PM EST Heartburn Dysphagia, unspecified type Voice hoarseness Lower abdominal pain BRBPR (bright red blood per rectum) Personal history of colonic polyps UPPER GI ENDOSCOPY Routine 10/23/2023 2: 42 PM EST COLONOSCOPY Routine 10/23/2023 2:41 PM EST documented in this encounter Results * Specimen to Pathology (10/23/2023 4:48 PM EST) AP Specimen 10/23/2023 4:48 PM EST 10/23/2023 4:48 PM EST Narrative [facility] - 10/23/2023 4:48 PM EST Specimen requisition ordered. ??Separate Pathology report to follow Marilee Brambila MD PATHOLOGY/CYTOLOGY O RDERABLES Performing Organization Address City/[facility] [place] [address] * Specimen to Pathology (10/23/2023 4:48 PM EST) AP Specimen 10/23/2023 4:48 PM EST 10/23/2023 4:48 PM EST Narrative [facility] - 10/23/2023 4:48 PM EST Specimen requisition ordered. ??Separate Pathology report to follow Mairlee Brambila MD PATHOLOGY/CYTOLOGY O RDERABLES Performing Organization Address [facility] [place] [address] * Specimen to Pathology (10/23/2023 4:48 PM EST) AP Specimen 10/23/2023 4:48 PM EST 10/23/2023 4:48 PM EST Narrative [facility] - 10/23/2023 4:48 PM EST Specimen requisition ordered. ??Separate Pathology report to follow Marilee Brambila MD PATHOLOGY/CYTOLOGY O RDERABLES Performing Organization Address [facility] [place] [address] * Specimen to Pathology (10/23/2023 4:48 PM EST) AP Specimen 10/23/2023 4:48 PM EST 10/23/2023 4:48 PM EST Narrative [facility] - 10/23/2023 4:48 PM EST Specimen requisition ordered. ??Separate Pathology report to follow Marilee Brambila MD PATHOLOGY/CYTOLOGY O RDERABLES Performing Organization Address City/[facility] [place] [address] * Specimen to Pathology (10/23/2023 3:37 PM EST) AP Specimen 10/23/2023 3:37 PM EST 10/23/2023 3:37 PM EST Narrative [facility] - 10/23/2023 3:37 PM EST Specimen requisition ordered. ??Separate Pathology report to follow Marilee Brambila MD PATHOLOGY/CYTOLOGY O PAULA Performing Organization Address City/[facility] [place] [address] * Specimen to Pathology (10/23/2023 3:37 PM EST) AP Specimen 10/23/2023 3:37 PM EST 10/23/2023 3:37 PM EST Narrative [facility] - 10/23/2023 3:37 PM EST Specimen requisition ordered. ??Separate Pathology report to follow Marilee Brambila MD PATHOLOGY/CYTOLOGY O PAULA Performing Organization Address [facility] [place] [address] * Specimen to Pathology (10/23/2023 3:37 PM EST) AP Specimen 10/23/2023 3:37 PM EST 10/23/2023 3:37 PM EST Narrative [facility] - 10/23/2023 3:37 PM EST Specimen requisition ordered. ??Separate Pathology report to follow Marilee Brambila MD PATHOLOGY/CYTOLOGY O PAULA Performing Organization Address [facility] [place] [address] * Specimen to Pathology (10/23/2023 3:37 PM EST) AP Specimen 10/23/2023 3:37 PM EST 10/23/2023 3:37 PM EST Narrative [facility] - 10/23/2023 3:37 PM EST Specimen requisition ordered. ??Separate Pathology report to follow Marilee Brambila MD PATHOLOGY/CYTOLOGY O PAULA Performing Organization Address [facility]/ZIP Co de Phone Number [facility] [place] [address] * Specimen to Pathology (10/23/2023 3:37 PM EST) AP Specimen 10/23/2023 3:37 PM EST 10/23/2023 3:37 PM EST Narrative [facility] - 10/23/2023 3:37 PM EST Specimen requisition ordered. ??Separate Pathology report to follow Marilee Brambila MD PATHOLOGY/CYTOLOGY O RDERABLES Performing Organization Address [facility] Co de Phone Number [facility] [place] [address] * Surgical Pathology Report (10/23/2023 3:04 PM EST) Final Diagnosis [id number] ? Location: 4T; EA08; A The signing pathologist has (i) examined the relevant preparation(s) for the specimen(s) and (ii) rendered or confirmed the diagnosis(es). . ?Surgical Pathology DIAGNOSIS A - Duodenum biopsies, biopsy (Multiple): - ??Duodenal mucosa with focal gastric heterotopia and focal erosion/ulceratio n. B - Gastric biopsies R/O h. pylori, biopsy (Multiple): - ??Gastric antral and fundic gland mucosa within normal limits. No H. pylori-like microorganisms are seen. C - Gastric polyp biopsies, biopsy (Multiple): - ??Gastric fundic gland polyp. D - Z line biopsies R/O ?? Huang's and EOE, biopsy (Multiple): - ??Squamocolumnar junctional mucosa (cardia type) with active and chronic inflammation, foveolar hyperplasia, and parakeratosis. There is no evidence of intestinal metaplasia. E - Mid esophagus biopsies R/O EOE and ?? Huang's , biopsy (Multiple): - ??Esophageal squamous mucosa within normal limits. F - Non targeted colon biopsies. R/O microscopic colitis, biopsy (Multiple): - ??Colonic mucosa within normal limits. G - Ascending colon polyp, resection: - ??Tubular adenoma. H - Ascending colon polyps x2, 15 mm, 3mm Jar 2, resection (Multiple): - ??Sessile serrated adenoma(s)/polyp( s) (multiple fragments). I - Descending colon polyp, resection: - ??Sessile serrated adenoma/polyp. CR-PX Electronically signed by: ?Caleb LINDER, Grace Verified: ??11/01/2023 18:53 ??Pathologist Performed at: ??-[facility] Dept. of Pathology, [place] [address] Extrusion Press Adjuster: Yareli Hobbs MD, FCAP, ??CLIA Certificate: [id number] SPECIMEN(S) SUBMITTED A - duodenum biopsies, biopsy (Multiple) B - gastric biopsies R/O h. pylori, biopsy (Multiple) C - gastric polyp biopsies, biopsy (Multiple) D - z line biopsies R/O ?? Huang's and EOE, biopsy (Multiple) E - mid esophagus biopsies R/O EOE and ?? Huang's , biopsy (Multiple) F - non targeted colon biopsies. R/O microscopic colitis, biopsy (Multiple) G - ascending colon polyp, resection (1) H - ascending colon polyps x2, 15 mm, 3mm Jar 2, resection (Multiple) . SPECIMEN(S) SUBMITTED I - descending colon polyp, resection (1) CLINICAL INFORMATION History of dysphagia, gastric ulcer noted on exam, ulcerative duodenitis,? ??PUD versus Crohn's disease, mild esophagitis, noted in esophagus, changes in bowel habits, intermittent diarrhea and constipation SPECIMEN PROCESSING A - Labeled/Fixative: Duodenum biopsies, formalin. Quantity/Size: Multiple, ranging from 0.3 to 0.6 cm. Tissue Description: Soft, wilde-pink tissues. Sections/Processi ng: Submitted in toto ??in 2 cassettes labeled A1-A2. B - Labeled/Fixative: Gastric biopsies rule out H. pylori, formalin. Quantity/Size: Three, 0.4 to 0.7 cm. Tissue Description: Soft, wilde-pink tissues. Sections/Processi ng: Submitted in toto ??in 1 cassette labeled B1. C - Labeled/Fixative: Gastric polyp biopsies, formalin. Quantity/Size: Single, 0.5 cm. Tissue Description: Soft, wilde-brown tissue. Sections/Processi ng: Submitted in toto ??in 1 cassette labeled C1. D - Labeled/Fixative: Z-line biopsies rule out Huang's, formalin. Quantity/Size: Multiple, ranging from 0.2 to 0.4 cm. Tissue Description: Soft, wilde-pink tissues. Sections/Processi ng: Submitted in toto ??in 1 cassette labeled D1. E - Labeled/Fixative: Mid esophagus biopsies rule out EOE, formalin. Quantity/Size: Four, ranging from 0.5 to 0.8 cm. Tissue Description: Soft, pink-white tissues. Sections/Processi ng: Submitted in toto ??in 1 cassette labeled E1. F - Labeled/Fixative: Nontargeted colon biopsies, formalin. Quantity/Size: Multiple, ranging from 0.3 to 0.4 cm. Tissue Description: Soft, wilde-pink tissues. Sections/Processi ng: Submitted in toto ??in 2 cassettes labeled F1-F2. G - Labeled/Fixative: Ascending colon polyp, formalin. Quantity/Size: Five, ranging from 0.3 to 1.0 cm. Tissue Description: Soft, wilde-pink tissues. Sections/Processi ng: Entirely submitted in 1 cassette labeled G1. H - Labeled/Fixative: Ascending colon polyps x 2, 15, formalin. Quantity/Size: Multiple, ranging from 0.4 up to 1.1 cm. Tissue Description: Soft, wilde-pink tissues. Sections/Processi ng: Entirely submitted in 3 cassettes labeled H1-H3. I - Labeled/Fixative: Descending colon polyp, formalin. Quantity/Size: Fragments, ranging from 0.2 to 1.0 cm. Tissue Description: Aggregate of mucus and wilde-pink soft tissues. Sections/Processi ng: Entirely submitted in 2 cassettes labeled I1-I2. ??sdy 11/01/2023 6:53 PM EST [facility] GI Biopsy 10/23/2023 3:04 PM EST 10/23/2023 3:04 PM EST GI Biopsy 10/23/2023 3:04 PM EST 10/23/2023 3:04 PM EST GI Biopsy 10/23/2023 3:04 PM EST 10/23/2023 3:04 PM EST GI Biopsy 10/23/2023 3:04 PM EST 10/23/2023 3:04 PM EST GI Biopsy 10/23/2023 3:04 PM EST 10/23/2023 3:04 PM EST GI Biopsy 10/23/2023 3:04 PM EST 10/23/2023 3:04 PM EST GI Biopsy 10/23/2023 3:04 PM EST 10/23/2023 3:04 PM EST GI Biopsy 10/23/2023 3:04 PM EST 10/23/2023 3:04 PM EST GI Biopsy 10/23/2023 3:04 PM EST 10/23/2023 3:04 PM EST Marilee Brambila MD PATHOLOGY/CYTOLOGY O PAULA Performing Organization Address [facility]/State/ZIP Co de Phone Number [facility] [address] [place] [address] * UPPER GI ENDOSCOPY (10/23/2023 2:42 PM EST) UPPER GI ENDOSCOPY [facility] Endoscopy ___ Procedure Date: 10/23/2023 2:42 PM ? Patient Name: Barrett Salvador ? N: [id number] ? Date of : 1945 ? Age: 77 ? Order #: [id number] ? Instrument Name: [id number] ? ___ Procedure: ? Upper GI endoscopy Indications: ? Dysphagia, Suspected ? gastro-esophageal reflux disease Providers: ? Marilee Brambila MD, Sury Metz ? Deven Leonard MD: ?Jonel Nolan Medicines: ? Midazolam 5 mg IV, Fentanyl 175 ? micrograms IV, Benzocaine spray Complications: ? No immediate complications. ___ Procedure: ? The procedure, indications, ? benefits, risks and alternatives ? were explained to the patient. ? Specifically discussed were ? potential complications including, ? but not limited to, bleeding, ? perforation, infection, missing a ? cancer, and adverse medication ? reactions. The Endoscope was ? introduced through the mouth, and ? advanced to the second part of ? duodenum The upper GI endoscopy was ? accomplished without difficulty. ? The patient tolerated the procedure ? well. ? Findings: ? The Z-line was irregular and was found 41 cm from the ? incisors. Biopsies were taken with a cold forceps for ? histology. ? LA Grade A (one or more mucosal breaks less than 5 ? mm, not extending between tops of 2 mucosal folds) ? esophagitis with no bleeding was found at the ? gastroesophageal junction. There was some congestion ? along the gastric mucosa at the Z-line as well. ? The exam of the esophagus was otherwise normal. ? Biopsies were taken with a cold forceps for histology. ? Two non-bleeding superficial gastric ulcers with a ? flat pigmented spot (Kevin Class IIc) were found in ? the gastric antrum. The largest lesion was 3 mm in ? largest dimension. ? Moderately erythematous mucosa was found in the ? gastric antrum. Multiple biopsies were obtained in ? the gastric body, at the incisura and in the gastric ? antrum with cold forceps for histology. ? Multiple small (5 mm or less) sessile polyps were ? found in the gastric body. Biopsies were taken with a ? cold forceps for histology. ? Diffuse erythema, congestion and mild villous ? flattening were found in the duodenal bulb, in the ? first portion of the duodenum and in the second ? portion of the duodenum. Large superficial ? ulcerations were found in the second portion of the ? duodenum, largest 10 mm. Biopsies were taken with a ? cold forceps for histology. ? Moderate Sedation: ? Moderate (conscious) sedation was administered by the ? nurse and supervised by the endoscopist. The ? following parameters were monitored: oxygen ? saturation, heart rate, blood pressure, and response ? to care. ? I was present during the intraservice time as ? documented by the sedation RN. Impression: ?- Z-line irregular, 41 cm from the ? incisors. Biopsied. ? - LA Grade A reflux esophagitis ? with no bleeding. ? - Two very small non-bleeding ? gastric ulcers with a flat ? pigmented spot (Kevin Class IIc) ? and possible gastritis vs ? gastropathy. Biopsied. ? - Benign appearing gastric polyps, ? likely fundic gland polyps. ? Biopsied. ? 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 Biopsied. Recommendation: ?- Await pathology results. ? - Lifestyle measures for reflux: ? Eat small, frequent meals. Avoid ? over-eating. Sit upright (avoid ? lying down) for several hours after ? eating. Avoid trigger foods. Weight ? loss can also reduce reflux ? symptoms. ? - Eat slowly and chew food ? thoroughly. Moisten bread products ? and other dry foods when eating. ? - Treat H pylori if biopsies ? positive. ? - Avoid all NSAIDS (such as ? ibuprofen, Advil, Aleve). Take ? Tylenol instead. Ok to continue ? baby aspirin if needed. ? - Start Omeprazole (Prilosec) 40mg ? by mouth. Take 30 minutes prior to ? a meal. I sent a script through ? your express scripts. This is to ? REPLACE the over the counter ? Nexium. If you continue to have ? reflux symptoms, you can add a ? night time dose of 20 to 40mg prior ? to bedtime. ? - Treat H Pylori if biopsies ? positive. ? - Repeat endoscopy in 2 to 3 months ? to check for healing of gastric ? ulcer and resolution of duodenal ? ulcerations given location. Please ? call us at [phone] to schedule. ? Attending Participation: ? I personally performed the entire procedure. ? _ Marilee Brambila MD 10/23/2023 5:17:49 PM Number of Addenda: 0 Note Initiated On: 10/23/2023 2:42 PM PROVATION 10/23/2023 2:42 PM EST Jesika Harmon [facility] O RDERABLES PROVATION * COLONOSCOPY (10/23/2023 2:41 PM EST) COLONOSCOPY [facility] Endoscopy Procedure Date: 10/23/2023 2:41 PM ? Patient Name: Barrett Salvador ? Date of : 1945 ? Age: 77 ? Order #: [id number] ? Instrument Name: [id number] ? Procedure: ? Colonoscopy Indications: ? Hematochezia Providers: ? Marilee Brambila MD, Sury Metz ? Deven Leonard Referring : ?Jonel Nolan Medicines: ? See the other procedure note for ? documentation of the administered ? medications, Midazolam 2 mg IV, ? Fentanyl 50 micrograms IV Complications: ? No immediate complications. Procedure: ? The procedure, indications, ? benefits, risks and alternatives ? were explained to the patient. ? Specifically discussed were ? potential complications including, ? but not limited to, bleeding, ? perforation, infection, missing a ? cancer, and adverse medication ? reactions. The patient was placed ? in the left lateral decubitus ? position, and a digital rectal exam ? was performed. The Colonoscope was ? inserted in the anus and under ? direct visualization, advanced to ? the terminal ileum, with ? identification of the appendiceal ? orifice and IC valve. Careful ? inspection was made as the ? colonoscope was withdrawn. The ? colonoscopy was somewhat difficult ? due to significant looping. ? Successful completion of the ? procedure was aided by changing the ? patient to a supine position and ? applying abdominal pressure. The ? patient tolerated the procedure ? well. The quality of the bowel ? preparation was good. The quality ? of the bowel preparation was ? evaluated using the BBPS ([place] ? Bowel Preparation Scale) with ? scores of: Right Colon = 2 (minor ? amount of residual staining, small ? fragments of stool and/or opaque ? liquid, but mucosa seen well), ? Transverse Colon = 2 (minor amount ? of residual staining, small ? fragments of stool and/or opaque ? liquid, but mucosa seen well) and ? Left Colon = 2 (minor amount of ? residual staining, small fragments ? of stool and/or opaque liquid, but ? mucosa seen well). The total BBPS ? score equals 6. The terminal ileum, ? ileocecal valve, appendiceal ? orifice, and rectum were ? photographed. ? Findings: ? The perianal and digital rectal examinations were ? normal. ? The terminal ileum appeared normal. ? A 3 mm polyp was found in the ascending colon. The ? polyp was sessile. The polyp was removed with a cold ? snare. Resection and retrieval were complete (jar 1). ? A 15 mm polyp was found in the ascending colon. The ? polyp was sessile. The polyp was removed with a ? piecemeal technique using a cold snare. Resection and ? retrieval were complete (jar 2). ? A 3 mm polyp was found in the ascending colon. The ? polyp was sessile. The polyp was removed with a cold ? snare. Resection and retrieval were complete (jar 2). ? A 3 mm polyp was found in the descending colon. The ? polyp was sessile. The polyp was removed with a cold ? snare. Resection and retrieval were complete. ? Normal mucosa was found in the entire colon. Biopsies ? for histology were taken with a cold forceps from the ? right colon and left colon for evaluation of ? microscopic colitis. ? Scattered small-mouthed diverticula were found in the ? sigmoid colon and descending colon. ? Non-bleeding internal hemorrhoids were found during ? retroflexion. The hemorrhoids were small. There was ? also a hypertrophied anal papilla. ? Moderate Sedation: ? Moderate (conscious) sedation was administered by the ? nurse and supervised by the endoscopist. The ? following parameters were monitored: oxygen ? saturation, heart rate, blood pressure, and response ? to care. ? I was present during the intraservice time as ? documented by the sedation RN. Impression: ?- The examined portion of the ileum ? was normal. ? - One 3 mm polyp in the ascending ? colon, removed with a cold snare. ? Resected and retrieved. ? - One 15 mm polyp in the ascending ? colon, removed piecemeal using a ? cold snare. Resected and retrieved. ? - One 3 mm polyp in the ascending ? colon, removed with a cold snare. ? Resected and retrieved. ? - One 3 mm polyp in the descending ? colon, removed with a cold snare. ? Resected and retrieved. ? - Normal mucosa in the entire ? examined colon. Biopsied. ? - Diverticulosis in the sigmoid ? colon and in the descending colon. ? - Non-bleeding internal hemorrhoids ? (likely the cause of bleeding) and ? hypertrophied anal papilla. Recommendation: ?- High fiber diet. ? - Await pathology results. ? - Repeat colonoscopy for ? surveillance based on pathology ? results. ? - Return to referring physician PRN. ? Attending Participation: ? I personally performed the entire procedure. ? __ Marilee Brambila MD 10/23/2023 5:20:45 PM Number of Addenda: 0 Note Initiated On: 10/23/2023 2:41 PM PROVATION 10/23/2023 2:41 PM EST Jesika [facility] PROVATION documented in this encounter Visit Diagnoses Not on filedocumented in this encounter Administered Medications Inactive Administered Medications - up to 3 most recent administrations Medication Order MAR Action Action Date Dose Rate Site lactated ringers infusion 100 mL/hr, Intravenous, CONTINUOUS, Starting on Mon10/23/23 at 1345, Until Mon10/23/23 at 1733, Endoscopy (Day of Procedure) New Bag 10/23/2023 1:30 PM EST 100 mL/hr 100 mL/hr documented in this encounter Active and Recently Administered Medications Times are shown in EST. Continuous Medication Order 10/21/2023 10/22/2023 10/23/2023 lactated ringers infusion (CANCELED) 100 mL/hr, Intravenous, CONTINUOUS, Starting on Mon10/23/23 at 1345, Until Mon10/23/23 at 1733, Endoscopy (Day of Procedure) 1330 (New Bag - Prov ider: Maki Malhotra RN) PRN Medication Order 10/21/2023 10/22/2023 10/23/2023 benzocaine (Hurricane One) 20% spray (restricted to yessica-procedural use) (CANCELED) PRN, Starting on Mon10/23/23 at 1447, Until Mon10/23/23 at 1943, Intra-Operative (Intra-Procedure) 1447 (Given - Provid er: Sury Leonard RN) fentaNYL (pf) (50 mcg/mL) multi-dose injection (CANCELED) PRN, Starting on Mon10/23/23 at 1447, Until Mon10/23/23 at 1943, Intra-Operative (Intra-Procedure), Routine 1447 (Given - Provid er: Sury Leonard RN)1450 (Given - Provider: Sury Leonard RN)1459 (Given - Provider: Sury Leonard RN)1502 (Given - Provider: Sury Leonard RN)1516 (Given - Provider: Sury Leonard RN)1535 (Given - Provider: Sury Leonard RN - Comment: colo sedation)1559 (Given - Provider: Sury Leonard RN) midazolam (pf) (Versed) (1 mg/mL) multi-dose injection (CANCELED) PRN, Starting on Mon10/23/23 at 1447, Until Mon10/23/23 at 1943, Intra-Operative (Intra-Procedure), Routine 1447 (Given - Provid er: Sury Leonard RN)1450 (Given - Provider: Sury Leonard RN)1456 (Given - Provider: Sury Leonard RN)1502 (Given - Provider: Sury Leonard RN)1515 (Given - Provider: Sury Leonard RN)1524 (Given - Provider: Sury Leonard RN)1534 (Given - Provider: Sury Leonard RN - Comment: colo sedation)1545 (Given - Provider: Sury Leonard RN)1557 (Given - Provider: Sury Leonard RN) documented in this encounter Care Teams Wall Steamer Relationship Specialty Start Date End Date Jesika Harmon APRN [address] [place] [address] PCP - General Family Medicine 12/09/22 documented as of this encounter
--- OUTSIDE RECORDS SUMMARY | 2024-11-26 14:03 | XMS_ITS | Encounter Summary ---
Author Organization [facility] Address [address] [place] [address] Care Team Providers Care Research Study Assistant Name Role Phone Unavailable Primary Care Provider Unavailabl e Encounter Details Date Type Department Care Team (Latest Contact Info) Description 11/20/2002 22:35 EST - 11/21/2002 11:59 EST Hospital Encounter [facility] Emergency Department - [facility] [address] [place] [address] Emergency, Default, MD Discharge Disposition: Home or Self Care [...]
--- OUTSIDE RECORDS SUMMARY | 2024-11-26 14:03 | XMS_ITS | Encounter Summary ---
[place] [address] Care Team Providers Care Airplane Fueler Name Role Phone Jesika Harmon BHARGAV Primary Care Provider +1- [phone] Encounter Details Date Type Department Care Team (Late st Contact Info) Description 08/02/2023 Telephone [place] [id number] Ian Valdez RN Social History Tobacco Use Types Packs/Day Years Used Date Smoking Tobacco: Former Cigarettes Smokeless Tobacco: Never Alcohol Use Standard Drinks/Week Comments Yes 7 (1 standard drink = 0.6 oz pur e alcohol) Sex and Gender Information Value Date Recorded Sex Assigned at Not on file Gender Identity Not on file Sexual Orientation Not on file documented as of this encounter Miscellaneous Notes * Telephone Encounter - Sarahi Alva - 08/24/2023 3:44 PM EST Placed outgoing phone call to patient in order to schedule a procedure. Phone Call Outcome: Left voicemail asking for return call. This was the 1st attempt If the call is returned, it can be handled by: Any Endoscopy Product Safety Professional * Telephone Encounter - Ian Valdez RN - 08/02/2023 5:20 PM EDT Received below message from trade union secretary, Mary Beth Sepulveda sent to [facility] Nurse Patient needs labs prior to imaging. Please add labs. Yvette documented in this encounter Plan of Treatment Not on file documented as of this encounter Results * Creatinine (09/08/2023 7:38 AM EST) Creatinine 1.06 0.80 - 1.50 mg/dL [facility] Est Glomerular Filtration Rate 73 >=60 mL/min/1. 73 m?? [facility] Comment: This patient's estimated GFR was calculated using the 2020 CKD-EPI equation. The estimated GFR can vary from the measured GFR by up to 30% in the absence of rapidly changing kidney function. Assessment of the estimated GFR is not appropriate when creatinine concentrations are rapidly changing. For clinical situations in which a more precise estimate of GFR is necessary, consider alternative methods of GFR estimation such as a 24-hour urine creatinine clearance. Assignment of CKD stage 1-5 for patients with an eGFR near the transition point between stages may be based on clinical assessment of muscle mass and symptoms in addition to eGFR. Blood 09/08/2023 7:38 AM EST 09/08/2023 8:04 AM EST Narrative Resulting Agency Comment Spec In Lab Jonel Dangelo APRN CHEMISTRY ORDERABLE S [facility] [place] [address] documented in this encounter Visit Diagnoses Diagnosis BRBPR (bright red blood per rectum) Hemorrhage of rectum and anus documented in this encounter Care Teams Airplane Fueler Relationship Specialty Start Date End Date Jesika Harmon APRN [address] [place] [id number] PCP - General Family Medicine 12/09/22 documented as of this encounter
--- OUTSIDE RECORDS SUMMARY | 2024-11-26 14:03 | XMS_ITS | Encounter Summary ---
[place] [address] Care Team Providers Care Transportation Clerk Name Role Phone Jesika Harmon APRN Primary Care Provider +1- [phone] Encounter Details Date Type Department Care Team (Late st Contact Info) Description 07/07/2023 Telephone [place] [phone] Natalie Diez Social History Tobacco Use Types Packs/Day Years [...] encounter Miscellaneous Notes * Telephone Encounter - Natalie Diez - 07/07/2023 10:33 AM EDT Left message on a unidentified voicemail for the patient to please call back in regards to an appointment. When call back is received please inquire if patient can come in for LINE LEADER for a MBS on a different day than a Monday as Radiology does not have a provider available at this time to coordinate with. documented in this encounter Plan of Treatment Not on file documented as of this encounter Visit Diagnoses Not on filedocumented in this encounter Care Teams Transportation Clerk Relationship Specialty Start Date End Date Jesika Harmon APRN [address] [place] [id number] PCP - General Family Medicine 12/09/22 documented as of this encounter
--- OUTSIDE RECORDS SUMMARY | 2024-11-26 14:03 | XMS_ITS | Encounter Summary ---
Author Organization [facility] [address] [place] [address] Care Team Providers Care Tile And Marble Setter Name Role Phone Jesika Harmon APRN Primary Care Provider +1- [phone] Encounter Details Date Type Department Care Team (Late st Contact Info) Description 10/23/2023 Orders [place] [address] Marilee Brambila MD [facility] [place] [address] Acute gastric ulcer without hemorrhage or perforation Social History Tobacco Use Types Packs/Day Years Used Date Smoking Tobacco: Former Cigarettes 1 2 965 - 1966 Smokeless Tobacco: Never Alcohol Use Standard Drinks/Week Comments Yes 7 (1 standard drink = 0.6 oz pur e alcohol) Sex and Gender Information Value Date Recorded Sex Assigned at Not on file Gender Identity Not on file Sexual Orientation Not on file documented as of this encounter Plan of Treatment Not on file documented as of this encounter Visit Diagnoses Diagnosis Acute gastric ulcer without hemorrhage or perforation Acute gastric ulcer without mention of hemorrhage, perforation, or obstruction documented in this encounter Care Teams Tile And Marble Setter Relationship Specialty Start Date End Date Jesika Harmon APRN [address] [place] [id number] PCP - General Family Medicine 12/09/22 documented as of this encounter
--- OUTSIDE RECORDS SUMMARY | 2024-11-26 14:03 | XMS_ITS | Encounter Summary ---
Author [facility] [place] [address] Care Team Providers Care Carpenter Supervisor Wooden Ship Name Role Phone Jesika Harmon APRN Primary Care Provider +1- [phone] Reason for Visit * Reason Onset Date Comments Appointment 07/17/2023 CT Abd/Pelvis Encounter Details Date Type Department Care Team (Late st Contact Info) Description 07/17/2023 [place] [address] Chin Zepeda, RN Appointment (CT Abd/Pelvis) Social History Tobacco Use Types Packs/Day Years [...] encounter Miscellaneous Notes * Telephone Encounter - Chin Zepeda, RN - 07/17/2023 12:00 PM EDT Called pt regarding CT Abd/Pelvis ordered by Jonel Dangelo APRN from GI. Left message for pt to call CT at [phone] to schedule imaging. documented in this encounter Plan of Treatment Not on file documented as of this encounter Visit Diagnoses Not on filedocumented in this encounter Care Teams Carpenter Supervisor Wooden Ship Relationship Specialty Start Date End Date Jesika Harmon APRN [address] [place] [id number] PCP - General Family Medicine 12/09/22 documented as of this encounter
--- OUTSIDE RECORDS SUMMARY | 2024-11-26 14:03 | XMS_ITS | Encounter Summary ---
Author Organization [facility] Address [address] [place] [address] Care Team Providers Care Engine Hostler Name Role Phone Hua Blanton MD Primary Care Provider Unava ilable Encounter Details Date Type Department Care Team (Late st Contact Info) Description 03/07/2003 Results Only [facility] [address] [place] [address] Hua Blanton MD Social History Tobacco Use [...] Associated Diagnosis Comments COMPLETE BLOOD COUNT Routine 03/07/2003 9:05 EDT PSA SCREEN Routine 03/07/2003 9:05 EDT LIPID PROFILE (INCLUDES CHOLESTEROL, TRIGLYCERIDES, HDL, LDL) Routine 03/07/2003 9:05 EDT COMPREHENSIVE METABOLIC PANEL (CMP) Routine 03/07/2003 9:05 EDT documented in this encounter Results * PSA SCREEN (03/07/2003 9:05 EDT) [facility] PSA 3.3 0 - 3.5 ng/ml [facility] Comment: Serum PSA concentration should not be interpreted as absolute evidence for the presence or absence of malignant disease. Assayed utilizing ncyclo chemiluminescent technology. Values obtained by using different assay methods cannot be used interchangeably. Assay changed to equimolar method 04/16/01. 03/07/2003 9:05 EDT 03/07/2003 13:29 EDT Hua Blanton MD CHEMISTRY & BLOOD GAS ORDERA BLES Final Result Performing Organization Address [facility] de Phone Number [facility] [address] [place] [address] * LIPID PROFILE (INCLUDES CHOLESTEROL, TRIGLYCERIDES, HDL, LDL) (03/07/2003 9:05 EDT) Pathologist [facility] [place] Cholesterol 145 mg/dl [facility] Comment: Desirable:<200 Borderline:200-239 High Risk:>ao=222 Fasting Triglycerides 73 35 - 160 mg/dl [facility] Comment:Fasting HDL 54 mg/dl [facility] Comment: Highly Desirable:>60 Desirable:35-60 High Risk:<35 Fasting LDL, Calculated 76 mg/dl [facility] Comment: Desirable:<130 Borderline:130-159 High Risk:>kt=277 Fasting Chol/HDL Ratio 2.7 Fasting [facility] 03/07/2003 9:05 EDT 03/07/2003 13:29 EDT Hua Blanton MD CHEMISTRY & BLOOD GAS ORDERA BLES Final Result Performing Organization Address [facility] Co de Phone Number [facility] [address] [place] [address] * COMPREHENSIVE METABOLIC PANEL (CMP) (03/07/2003 9:05 EDT) Pathologist [facility] [place] Potassium 4.4 3.5 - 5.0 mEq/L [facility] Comment:Fasting Sodium 141 136 - 145 mEq/L [facility] Comment:Fasting Chloride 105 96 - 110 mEq/L [facility] Comment:Fasting CO2 29 24 - 30 mEq/L [facility] Comment:Fasting Total Alkaline Phosphatase 64 38 - 126 U/L [facility] Comment:Fasting Bilirubin, Total 0.2 0.2 - 1.3 mg/dl [facility] Comment:Fasting AST 26 8 - 50 U/L [facility] Comment:Fasting ALT 36 15 - 75 U/L [facility] Comment:Fasting Albumin 3.8 3.0 - 5.5 g/dl [facility] Comment:Fasting Total Protein 6.6 6.0 - 8.5 g/dl [facility] Comment:Fasting Creatinine 0.9 0.7 - 1.5 mg/dl [facility] Comment:Fasting BUN 13 10 - 26 mg/dl [facility] Comment:Fasting Calcium 8.7 8.5 - 10.5 mg/dl [facility] Comment:Fasting Calculated Calcium 9.3 8.5 - 10.5 mg/dl [facility] Comment:Fasting Glucose, Serum 93 70 - 110 mg/dl [facility] Comment:Fasting Albumin/Globulin Ratio 1.4 Fasting [facility] 03/07/2003 9:05 EDT 03/07/2003 13:29 EDT us Hua Blanton MD CHEMISTRY & BLOOD GAS ORDERA BLES Final Result [facility] [address] [place] [address] * HEMAGRAM (03/07/2003 9:05 EDT) WBC 4.00 4.0 - 10.4 K/cmm [facility] RBC 4.58 4.36 - 5.78 M/cmm [facility] Hemoglobin 14.4 13.8 - 17.3 gm/dl [facility] HCT 42.1 39.5 - 50.2 % [facility] MCV 92 81 - 95 fl [facility] MCH 31.6 27.6 - 33.0 pg [facility] MCHC 34.3 32.8 - 36.4 gm/dl [facility] PLT 242 141 - 320 K/cmm [facility] RDW-CV 13.7 11.8 - 14.1 % [facility] 03/07/2003 9:05 EDT 03/07/2003 13:29 EDT us Hua Blanton MD HEMATOLOGY & PF4 ORDERABLES Final Result [facility] [address] [place] [address] documented in this encounter Visit Diagnoses Not on filedocumented in this encounter Care Teams Engine Hostler Relationship Specialty Start Date End Date Hua Blanton MD PCP - General 03/12/09 12/15/11 documented as of this encounter
--- OUTSIDE RECORDS SUMMARY | 2024-11-26 14:03 | XMS_ITS | Encounter Summary ---
Author Organization [facility] Desir[address] [place] [address] Care Team Providers Care [employer] Team Member Name Role Phone Jesika Harmon BHARGAV Primary Care Provider +1- [phone] Encounter Details Date Type Department Care Team (Late st Contact Info) Description 10/23/2023 2:00 PM EST - 10/23/2023 3:15 PM EST [place] [address] Marilee Brambila MD [facility] [place] [address] EGD WITH BIOPSY (WRVU 2.39) Social History Tobacco Use Types Packs/Day Years Used Date Smoking Tobacco: Former Cigarettes 1 2 1 965 - 1967 Smokeless Tobacco: Never Tobacco Cessation:Counseling Given: Not [...] Sign Reading Time Taken Comments Blood Pressure 183/77 10/23/2023 3:15 PM EST Pulse 80 10/23/2023 3:15 PM EST Temperature 35.9 ??C (96.7 ??F) 10/23/2023 1:25 PM ES T Respiratory Rate 16 10/23/2023 3:15 PM EST Oxygen Saturation 100% 10/23/2023 3:15 PM EST Inhaled Oxygen Concentration - - [...] the day after the test, use an xead-dwy-bzgbdxd spray or lozenges to numbyour throat. Warm [...] occurs, please contact your doctor. Please call [phone] before 8pm Mon-Fri with problems, questions, or concerns. If you call after 8pm or on weekends, call the Hospital at [phone] and ask for the Administrative Analyst feather boner and the motor patrol operator will contact that person for you. When should you call for help? Call [phone] anytime you think you may need emergency [...] more? You can view health information on [employer], your personal patient account. Log in or sign up today. Content Version: 12.2 ?? 3803-1780 [employer]. Care instructions adapted under license by [facility]. If you have questions about a medical condition or this instruction, always ask your healthcare professional. [employer] disclaims any warranty or liability for your [...] 10/23/2023 2:44 PM EST Patient Name: Barrett Salvador Patient Age: 77 y.o. Birthdate: 1945 Admit [...] Routine 10/23/2023 3:04 PM EST Colonoscopy, Biopsy (00590) 10/23/2023 2:43 PM EST Heartburn Dysphagia, unspecified type Voice hoarseness Lower abdominal pain BRBPR (bright red blood per rectum) Personal history of colonic polyps Upper Gi Endoscopy, Biopsy (77211) 10/23/2023 2:43 PM EST Heartburn Dysphagia, unspecified type Voice hoarseness Lower abdominal pain BRBPR (bright red blood per rectum) Personal history of colonic polyps UPPER GI ENDOSCOPY Routine 10/23/2023 2: 42 PM EST COLONOSCOPY Routine 10/23/2023 2:41 PM EST documented in this encounter Results * Specimen to Pathology (10/23/2023 4:48 PM EST) AP Specimen 10/23/2023 4:48 PM EST 10/23/2023 4:48 PM EST Narrative [facility] - 10/23/2023 4:48 PM EST Specimen requisition ordered. ??Separate Pathology report to follow Marilee Brambila MD PATHOLOGY/CYTOLOGY O RDCHANO Performing Organization Address [facility] [place] [address] * Specimen to Pathology (10/23/2023 4:48 PM EST) AP Specimen 10/23/2023 4:48 PM EST 10/23/2023 4:48 PM EST Narrative [facility] - 10/23/2023 4:48 PM EST Specimen requisition ordered. ??Separate Pathology report to follow Marilee Brambila MD PATHOLOGY/CYTOLOGY O PAULA Performing Organization Address [facility] [place] [address] * Specimen to Pathology (10/23/2023 4:48 PM EST) AP Specimen 10/23/2023 4:48 PM EST 10/23/2023 4:48 PM EST Narrative [facility] - 10/23/2023 4:48 PM EST Specimen requisition ordered. ??Separate Pathology report to follow Marilee Brambila MD PATHOLOGY/CYTOLOGY O RDCHANO Performing Organization Address [facility] [place] [address] * Specimen to Pathology (10/23/2023 4:48 PM EST) AP Specimen 10/23/2023 4:48 PM EST 10/23/2023 4:48 PM EST Narrative [facility] - 10/23/2023 4:48 PM EST Specimen requisition ordered. ??Separate Pathology report to follow Marilee Brambila MD PATHOLOGY/CYTOLOGY O RDCHANO Performing Organization Address City/[facility] [place] [address] * Specimen to Pathology (10/23/2023 3:37 PM EST) AP Specimen 10/23/2023 3:37 PM EST 10/23/2023 3:37 PM EST Narrative [facility] - 10/23/2023 3:37 PM EST Specimen requisition ordered. ??Separate Pathology report to follow Marilee Brambila MD PATHOLOGY/CYTOLOGY O PAULA Performing Organization Address [facility] [place] [address] * Specimen to Pathology (10/23/2023 3:37 PM EST) AP Specimen 10/23/2023 3:37 PM EST 10/23/2023 3:37 PM EST Narrative [facility] - 10/23/2023 3:37 PM EST Specimen requisition ordered. ??Separate Pathology report to follow Marilee Brambila MD PATHOLOGY/CYTOLOGY O PAULA Performing Organization Address [facility] [place] [address] * Specimen to Pathology (10/23/2023 3:37 PM EST) AP Specimen 10/23/2023 3:37 PM EST 10/23/2023 3:37 PM EST Narrative [facility] - 10/23/2023 3:37 PM EST Specimen requisition ordered. ??Separate Pathology report to follow Marilee Brambila MD PATHOLOGY/CYTOLOGY O PAULA Performing Organization Address [facility] [place] [address] * Specimen to Pathology (10/23/2023 3:37 PM EST) AP Specimen 10/23/2023 3:37 PM EST 10/23/2023 3:37 PM EST Narrative [facility] - 10/23/2023 3:37 PM EST Specimen requisition ordered. ??Separate Pathology report to follow Marilee Brambila MD PATHOLOGY/CYTOLOGY O PAULA Performing Organization Address [facility]/ZIP Co de Phone Number [facility] [place] [address] * Specimen to Pathology (10/23/2023 3:37 PM EST) AP Specimen 10/23/2023 3:37 PM EST 10/23/2023 3:37 PM EST Narrative [facility] - 10/23/2023 3:37 PM EST Specimen requisition ordered. ??Separate Pathology report to follow Marilee Brambila MD PATHOLOGY/CYTOLOGY O RDERABLES Performing Organization Address [facility] [place] [address] * Surgical Pathology Report (10/23/2023 3:04 PM EST) Final Diagnosis [id number] ? Location: 4T; 08; A The signing pathologist has (i) examined [...] Grace Verified: ??11/01/2023 18:53 ??Pathologist Performed at: ??-[facility] Dept. of Pathology, [place] [address] Sheet Metal Technician: Yareli Hobbs MD, AP, ??CLIA Certificate: [id number] SPECIMEN(S) SUBMITTED A - duodenum biopsies, biopsy [...] labeled I1-I2. ??sdy 11/01/2023 6:[address] [facility] GI Biopsy 10/23/2023 3:04 PM [...] 3:04 PM EST Marilee Brambila MD PATHOLOGY/CYTOLOGY Osmel MITCHELL Performing Organization Address [facility]/State/[facility] Co de Phone Number [facility] [address] [address] * UPPER GI ENDOSCOPY (10/23/2023 2:42 PM EST) UPPER GI ENDOSCOPY [facility] Endoscopy ___ Procedure Date: 10/23/2023 2:42 PM ? Patient Name: Barrett Salvador ? N: [id number] ? Date of : 1945 ? Age: 77 ? Order #: [id number] ? Instrument Name: [id number] ? ___ Procedure: ? Upper GI endoscopy [...] given location. Please ? call us at [phone] to schedule. ? Attending Participation: ? I personally performed the entire procedure. ? _ Marilee Brambila MD 10/23/2023 5:17:49 PM Number of Addenda: 0 Note Initiated On: 10/23/2023 2:42 PM PROVATION 10/23/2023 2:42 PM EST Jesika Harmon NEWS [facility] RDERABLES PROVATION * COLONOSCOPY (10/23/2023 2:41 PM EST) COLONOSCOPY [facility] Endoscopy Procedure Date: 10/23/2023 2:41 PM ? Patient Name: Barrett Salvador ? N: [id number] ? Date of : 1945 ? Age: 77 ? Order #: [id number] ? Instrument Name: [id number] ? Procedure: ? Colonoscopy Indications: ? Hematochezia Providers: ? Marilee Brambila MD, Sury Metz ? Deven Leonard Referring MD: ?Jesika Harmon, Jonel Dangelo Medicines: ? See the other procedure note [...] preparation was ? evaluated using the BBPS ([place] ? Bowel Preparation Scale) with ? scores [...] results. ? - Return to referring physician APRIL. ? Attending Participation: ? I personally performed the entire procedure. ? __ Marilee Brambila MD 10/23/2023 5:20:45 PM Number of Addenda: 0 Note Initiated On: 10/23/2023 2:41 PM PROVATION 10/23/2023 2:41 PM EST Jesika Harmon APRN GENERAL SURGICAL O RDERABLES PROVATION documented in this encounter Visit Diagnoses Diagnosis Heartburn Dysphagia, unspecified type Voice hoarseness Dysphonia Lower abdominal pain Abdominal pain, other specified site BRBPR (bright red blood per rectum) Hemorrhage of rectum and anus Personal history of colonic polyps documented in this encounter Administered Medications Inactive Administered Medications - up to 3 most recent administrations Medication Order MAR Action Action Date Dose Rate Site benzocaine (Hurricane One) 20% spray (restricted to yessica-procedural use) PRN, Starting on Mon10/23/23 at 1447, Until Mon10/23/23 at 1943, Intra-Operative (Intra-Procedure) Given 10/23/2023 2:47 PM EST 1 each fentaNYL (pf) (50 mcg/mL) multi-dose injection PRN, Starting on Mon10/23/23 at 1447, Until Mon10/23/23 at 1943, Intra-Operative (Intra-Procedure), Routine Given 10/23/2023 3:59 PM EST 25 mcg Given 10/23/2023 3:35 PM EST 25 mcg Given 10/23/2023 3:16 PM EST 25 mcg lactated ringers infusion 100 mL/hr, Intravenous, CONTINUOUS, Starting on Mon10/23/23 at 1345, Until Mon10/23/23 at 1733, Endoscopy (Day of Procedure) New Bag 10/23/2023 1:30 PM EST 100 mL/hr 100 mL/hr midazolam (pf) (Versed) (1 mg/mL) multi-dose injection PRN, Starting on Mon10/23/23 at 1447, Until Mon10/23/23 at 1943, Intra-Operative (Intra-Procedure), Routine Given 10/23/2023 3:57 PM EST 0.5 mg Given 10/23/2023 3:45 PM EST 0.5 mg Given 10/23/2023 3:34 PM EST 1 mg documented in this encounter Active and [...] Sury Leonard RN)1557 (Given - Provider: Sury Lenoard RN) documented in this encounter Care Teams [employer] Team Member Relationship Specialty Start Date End Date Jesika Harmon APRN [address] [place] [id number] PCP - General Family Medicine 12/09/22 documented as of this encounter
--- OUTSIDE RECORDS SUMMARY | 2024-11-26 14:03 | XMS_ITS | Encounter Summary ---
Author Organization [facility] Address [address] [place] [address] Care Team Providers Care Marine Reporter Name Role Phone Unavailable Primary Care Provider Unavailabl e Encounter Details Date Type Department Care Team (Late st Contact Info) Description 06/04/2003 21:09 EDT Hospital Encounter [facility] [address] [place] [address] Agusto Keyes MD [address] [place] [phone] Discharge Disposition: Auto Discharge Social History Tobacco [...] Name Priority Date/Time Associated Diagnosis Comments ORBITS FOREIGN BODY Routine 06/04/2003 2 1:43 EDT documented in this encounter Results * ORBITS FOREIGN BODY (06/04/2003 21:43 EDT) Anatomical Region Laterality Modality Other 06/04/2003 21:4 3 EDT Narrative 06/30/2009 5:16 EDT H/O METAL INURY TO EYES R/O FOREIGN BODY FOR MRI ON Monday06/08/03 ORBITS FOR METALLIC FOREIGN BODY, 2 VIEWS: 06/04/03 Negative for foreign body. dw Procedure Note Layo Veras MD - 06/30/2009 H/O METAL INURY TO EYES R/O FOREIGN BODY FOR MRI ON Monday06/08/03 ORBITS FOR METALLIC FOREIGN BODY, 2 VIEWS: 06/04/03 Negative for foreign body. dw us Agusto Keyes MD IMG DIAGNOSTIC IMAGING ORDERABLE S Final Result documented in this encounter Visit Diagnoses Not on filedocumented in this encounter
--- OUTSIDE RECORDS SUMMARY | 2024-11-26 14:03 | XMS_ITS | Encounter Summary ---
Author Organization [facility] [place] [address] Care Team Providers Care Windows Desktop Support Name Role Phone Camprieto Jesikaemilia Almanza APRN Primary Care Provider +1- [phone] Encounter Details Date Type Department Care Team (Latest Contact Info) Description 08/30/2023 2:00 PM EST - 08/30/2023 11:59 PM [facility] Hospital Encounter XRay at [address] [place] [address] Jonel Dangelo CADDY MASTER [facility] [place] [address] Heartburn; Dysphagia, unspecified type; Voice hoarseness; Lower abdominal pain; BRBPR (bright red blood per rectum); Personal history of colonic polyps Discharge Disposition: Home Social History Tobacco Use [...] CIDER VINEGAR ORAL Take by mouth Daily. aspirin EC 81 mg EC (DR) tablet Take 81 mg by mouth. esomeprazole (NexIUM) [address] capsule Take 20 mg by mouth every morning (before breakfast). 10/23/2023 documented as of this encounter Plan of Treatment Not on file documented as of this encounter Procedures Procedure Name Priority Date/Time Associated Diagnosis Comments XR FLUORO BARIUM SWALLOW (MODIFIED/VIDEO SWALLOW PHARYNX) Routine 08/30/2023 2:27 PM EST Heartburn Dysphagia, unspecified type Voice hoarseness Lower abdominal pain BRBPR (bright red blood per rectum) Personal history of colonic polyps documented in this encounter Results * XR Fluoro Esophagram (Modified/Video Swallow Pharynx) (08/30/2023 2:27 PM EST) Anatomical Region Laterality Modality N/A Radio Fluoroscop y Impressions 08/30/2023 2:59 PM EST 1. ??Normal modified barium swallow for age. 2. ??Please refer to speech-language pathologist report for further details. I have personally reviewed the image(s) and the resident's interpretation and agree with the findings, Marie Taylor MD at 08/30/2023 2:59 PM Thank you for letting us participate in the care of this patient. ??If you are a health care provider and have any questions regarding this report, please contact the number below. ??For patients who have questions please contact the health career coach that requested your imaging first. ? Electronically signed by: Marie Taylor MD, [facility] ([phone]), at 08/30/2023 2:59 PM Narrative 08/30/2023 2:59 PM EST EXAMINATION: XR FLUORO ESOPHAGRAM (MODIFIED/VIDEO SWALLOW PHARYNX) CLINICAL HISTORY: Dysphagia, history of pneumonia TECHNIQUE: The examination was performed in conjunction with speech pathology. ??Varying consistencies of barium (thin liquids, pudding, soft solids, and regular solids) were administered under lateral fluoroscopic observation. A 13 mm barium pill was also administered with thin liquid. Fluoro time: 1.22 minutes COMPARISON: None FINDINGS: The oral phase of swallowing is normal. There is normal elevation of the larynx and normal epiglottic inversion with swallowing. No aspiration occurred with any consistency. Flash penetration with swallowing the 13 mm barium tablet with thin liquids. No other penetration observed. No vallecular or piriform sinus residue. Incidental note made of intervertebral disc space narrowing and spondylosis in the visualized mid-lower cervical spine. Procedure Note Marie Taylor MD - 08/30/2023 EXAMINATION: XR FLUORO ESOPHAGRAM (MODIFIED/VIDEO SWALLOW PHARYNX) CLINICAL HISTORY: Dysphagia, history of pneumonia TECHNIQUE: The examination was performed in conjunction with speech pathology.Varying consistencies of barium (thin liquids, pudding, soft solids, and regularsolids) were administered under lateral fluoroscopic observation. A 13 mm bariumpill was also administered with thin liquid. Fluoro time: 1.22 minutes COMPARISON: None FINDINGS: The oral phase of swallowing is normal. There is normal elevation of the larynx and normal epiglottic inversionwith swallowing. No aspiration occurred with any consistency. Flash penetration with swallowing the 13 mm barium tablet with thinliquids. No other penetration observed. No vallecular or piriform sinus residue. Incidental note made of intervertebral disc space narrowing andspondylosis in the visualized mid-lower cervical spine. IMPRESSION 1. Normal modified barium swallow for age. 2. Please refer to speech-language pathologist report for furtherdetails. I have personally reviewed the image(s) and the resident's interpretationand agree with the findings, Marie Taylor MD at 08/30/2023 2:59 PM Thank you for letting us participate in the care of this patient. If youare a health care provider and have any questions regarding this report,please contact the number below. For patients who have questions please contactthe health career coach that requested your imaging first. Electronically signed by: Marie Taylor MD, [facility]([phone]), at 08/30/2023 2:59 PM Jonle Dangelo APRN IMG FLUORO ORDERABL ES documented in this encounter Visit Diagnoses Diagnosis Heartburn Dysphagia, unspecified type Voice hoarseness Dysphonia Lower abdominal pain Abdominal pain, other specified site BRBPR (bright red blood per rectum) Hemorrhage of rectum and anus Personal history of colonic polyps documented in this encounter Care Teams Windows Desktop Support Relationship Specialty Start Date End Date Jesika Harmon, BHARGAV [address] [place] [id number] PCP - General Family Medicine 12/09/22 documented as of this encounter
--- OUTSIDE RECORDS SUMMARY | 2024-11-26 14:03 | XMS_ITS | Clinical Summary ---
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 Active multivitamin (THERAGRAN) Tablet Take 1 tablet by mouth daily. Active APPLE CIDER VINEGAR ORAL Take by mouth Daily. Active omeprazole (PriLOSEC) [address] capsuleIndications:A cute gastric ulcer without hemorrhage or perforation Take 1 capsule by mouth daily. Take 30 min prior to mealtime 90 capsule 3 10/23/2023 Active Active Problems Problem Noted Date Diagnosed Date Epigastric hernia 12/13/2023 Encounters Date Type Department Care Team Description 09/16/2024 [place] [address] Marilee Brambila MD Acute gastric ulcer without hemorrhage or perforation from Last 3 Months Family History Medical History Relation Comments Liver Cancer Brother Liver Cancer Father Pancreatic Cancer Father Celiac Disease Neg Hx Colorectal Cancer Neg Hx Esophageal Cancer Neg Hx Inflammatory Bowel Disease Neg Hx Stomach Cancer Neg Hx Relation Status Comments Brother Father Social History Tobacco Use Types Packs/Day Years [...] on file Sexual Orientation Not on file Last Filed Vital Signs Vital Sign Reading Time Taken Comments Blood Pressure 149/63 12/05/2023 4:05 PM EST Pulse 67 12/05/2023 4:05 PM EST Temperature 35.9 ??C (96.7 ??F) 10/23/2023 1:25 PM ES T Respiratory Rate 18 12/05/2023 4:05 PM EST Oxygen Saturation 100% 12/05/2023 4:05 PM EST Inhaled Oxygen Concentration - - Weight 83 kg (183 lb) 12/05/2023 4:05 PM EST Height 167.6 cm (5' 6) 12/05/2023 4:05 PM EST Body Mass Index 29.54 12/05/2023 4:05 PM EST Plan of Treatment Health Maintenance Due Date Last Done Comments Hepatitis C Screening 1963 Tetanus/Diphtheria/Pertussis Vaccines (1 - Tdap) 1965 Pneumoccocal Vaccine: 50+ (1 of 1 - PCV) 1996 Zoster vaccine (1 of 2) 1996 Advance Directive 2001 RSV Vaccine (1 - 1-dose 75+ series) 2021 Covid-19 Vaccine (3 - season) 2024, 12/11/2020 Influenza (Flu) vaccine (1 o f 1 - Influenza standard series) 06/16/2024 Colonoscopy Discontinued 10/23/2023, 10/23/2023 Colorectal Cancer Screening Discontinued Sigmoidoscopy (10 year) with FIT yearly Discontinued 0 10/23/2023, 10/23/2023 CT Colonography Discontinued FIT DNA Discontinued FIT Discontinued Sigmoidoscopy Discontinued Procedures Procedure Name Priority Date/Time Associated Diagnosis Comments COLONOSCOPY Routine 10/23/2023 2:41 PM EST from Last 3 Months or Most Recently Relevant to Health Maintenance Results * COLONOSCOPY (10/23/2023 2:41 PM EST) COLONOSCOPY [facility] Endoscopy Procedure Date: 10/23/2023 2:41 PM ? Patient Name: Barrett Salvador ? Date of : 1945 ? Age: 77 ? Order #: [id number] ? Instrument Name: [id number]- [id number] ? Procedure: ? Colonoscopy Indications: ? Hematochezia [...] preparation was ? evaluated using the BBPS ([place] ? Bowel Preparation Scale) with ? scores [...] Harmon APRN GENERAL SURGICAL O RDERABLES PROVATION from Last 3 Months or Most Recently Relevant to Health Maintenance Care Teams Sensory Scientist Relationship Specialty Start Date End Date Jesika Harmon APRN [address] [place] [address] PCP - General Family Medicine 12/09/22
--- OUTSIDE RECORDS SUMMARY | 2024-11-26 14:03 | XMS_ITS | Encounter Summary ---
[place] [address] Care Team Providers Care Customer Contact Sales Associate Name Role Phone Jesika Harmon APRN Primary Care Provider +1- [phone] Reason for Referral * Consultation (Routine) - Closed Specialty Diagnoses / Procedures Referred By Nelia sanford Referred To Contact Gastroenterology Diagnoses Gastroesophageal reflux disease, unspecified whether esophagitis present call 01/04/23-motility- GERD Jesika Harmon APRN [address] [place] [phone] [facility] [address] [place] [phone] Referral ID Status Reason Start Date Expiration Date V isits Requested Visits Authorized [id number] Closed Consult, Test & Treat PCP Updated and/or Approved 12/09/2022 12/09/2023 6 6 Encounter Details Date Type Department Care Team (Latest Contact Info) Description 12/09/2022 Transcribe Orders eDH Incoming Referrals [phone] Jesika Harmon APRN [address] [place] [phone] Gastroesophageal reflux disease, unspecified whether esophagitis present Social History Tobacco Use Types Packs/Day Years Used Date Smoking Tobacco: Never Assessed Sex and Gender Information Value Date Recorded Sex Assigned at Not on file Gender Identity Not on file Sexual Orientation Not on file documented as of this encounter Plan of Treatment Scheduled Referrals Name Type Priority Associated Diagnoses Order Schedule Referral to Gastroenterology Outpatient Referral Routine Gastroesophageal reflux disease, unspecified whether esophagitis present Ordered: 12/09/2022 documented as of this encounter Visit Diagnoses Diagnosis Gastroesophageal reflux disease, unspecified whether esophagitis present documented in this encounter Care Teams Customer Contact Sales Associate Relationship Specialty Start Date End Date Jesika Harmon APRN [address] [place] [id number] PCP - General Family Medicine 12/09/22 documented as of this encounter
--- OUTSIDE RECORDS SUMMARY | 2024-11-26 14:03 | XMS_ITS | Encounter Summary ---
Author Organization [facility] [address] Care Team Providers Care Laboratory Technician Name Role Phone Camprieto Jesika Archie DURANT Primary Care Provider [phone] Reason for Referral * Consultation (Routine) - Closed Specialty Diagnoses / Procedures Referred By Nelia sanford Referred To Contact Otolaryngology Diagnoses Heartburn Dysphagia, unspecified type Voice hoarseness Lower abdominal pain BRBPR (bright red blood per rectum) Personal history of colonic polyps Epigastric hernia Jonel Dangelo LINE INSTALLER [facility] [place] [address] [facility] [place] [address] [place] [phone] Referral ID Status Reason Start Date Expiration Date V isits Requested Visits Authorized [id number] Closed Consult, Test & Treat 06/30/2023 06/29/2024 1 1 * Consultation (Routine) - Closed Specialty Diagnoses / Procedures Referred By Nelia sanford Referred To Contact General Surgery Diagnoses Epigastric hernia Jonel Dangelo APRN [facility] [place] [address] [facility] [place] [address] [address] Referral ID Status Reason Start Date Expiration Date V isits Requested Visits Authorized [id number] Closed Consult, Test & Treat 06/30/2023 06/29/2024 1 1 * Diagnostic Test (Routine) - Closed Specialty Diagnoses / Procedures [facility] Referred To Contact Gastroenterology Diagnoses Heartburn Dysphagia, unspecified type Voice hoarseness Lower abdominal pain BRBPR (bright red blood per rectum) Personal history of colonic polyps pH impedance OFF PPI - dysphagia see also hrem Procedures pH Impedance - 24 Hour Jonel Dangelo LINE INSTALLER [facility] [place] [address] [place] [address] Referral ID Status Reason Start Date Expiration Date V isits Requested Visits Authorized [id number] Closed Consult, Test & Treat 06/30/2023 06/29/2024 1 1 * Diagnostic Test (Routine) - Closed Specialty Diagnoses / Procedures [facility] Referred To Contact Gastroenterology Diagnoses Heartburn Dysphagia, unspecified type Voice hoarseness Lower abdominal pain BRBPR (bright red blood per rectum) Personal history of colonic polyps HREM - dysphagia see also ph imp stop PPI 2 wks prior to testing Procedures High Resolution Esophageal Manometry Jonel Dangelo [facility] [place] [address] [facility] [place] [address] [place] [address] Referral ID Status Reason Start Date Expiration Date V isits Requested Visits Authorized [id number] Closed Test Only 06/30/2023 06/29/2024 1 1 * Diagnostic Test (Routine) - Closed Specialty Diagnoses / Procedures Referred By Nelia sanford Referred To Contact Radiology Diagnoses Heartburn Dysphagia, unspecified type Voice hoarseness Lower abdominal pain BRBPR (bright red blood per rectum) Personal history of colonic polyps Procedures CT Abdomen & Pelvis w Contrast Jonel Dangelo APRN [facility] [place] [address] [facility] [place] [address] Referral ID Status Reason Start Date Expiration Date V isits Requested Visits Authorized [id number] Closed Specialty Service Requested 06/30/2023 12/28/2024 1 1 * Speech Therapy (Routine) - Closed Specialty Diagnoses / Procedures Referred By Nelia sanford Referred To Contact Speech Therapy Diagnoses Heartburn Dysphagia, unspecified type Voice hoarseness Lower abdominal pain BRBPR (bright red blood per rectum) Personal history of colonic polyps RFV MBS Jonel Dangelo APRN [facility] [place] [address] [facility] [place] [address] Referral ID Status Reason Start Date Expiration Date V isits Requested Visits Authorized [id number] Closed Evaluate and Treat 06/30/2023 06/29/2024 100 100 Reason for Visit * Consultation (Routine) - Closed Specialty Diagnoses / Procedures Referred By Nelia sanford Referred To Contact Gastroenterology Diagnoses Gastroesophageal reflux disease, unspecified whether esophagitis present call 01/04/23-motility- GERD Jesika Harmon APRN [address] [place] [address] [facility] [place] [address] [place] [address] Referral ID Status Reason Start Date Expiration Date V isits Requested Visits Authorized [id number] Closed Consult, Test & Treat PCP Updated and/or Approved 12/09/2022 12/09/2023 6 6 Encounter Details Date Type Department Care Team (Late st Contact Info) Description 06/30/2023 1:00 PM EDT Office [place] [address] Jonel Dangelo, LINE INSTALLER [facility] [place] [address] Heartburn; Dysphagia, unspecified type; Voice hoarseness; Lower abdominal pain; BRBPR (bright red blood per rectum); Personal history of colonic polyps; Epigastric hernia Social History Tobacco Use Types Packs/Day Years [...] Sign Reading Time Taken Comments Blood Pressure 138/62 06/30/2023 1:08 PM EDT Pulse 65 06/30/2023 1:08 PM EDT Temperature - - Respiratory Rate - - Oxygen Saturation - - Inhaled Oxygen Concentration - - Weight 83.7 kg (184 lb 8 oz) 06/30/2023 1:08 PM EDT Height 172.7 cm (5' 8) 06/30/2023 1:08 PM EDT Body Mass Index 28.05 06/30/2023 1:08 PM EDT documented in this encounter Patient Instructions * Patient Instructions* Jonel Dangelo, LINE INSTALLER - 06/30/2023 1:00 PM EDT Dear Barrett, It was nice to meet you today. I have listed the recommendations we discussed below. Please call the GI department to schedule the investigations if you do not hear from us within 1 week: Clinic [phone] Motility Lab scheduling [phone] Endoscopy scheduling- [phone] Please call the Radiology department to schedule imaging tests at [phone]. -Labs -Upper endoscopy and colonoscopy (discontinue nexium 2 weeks prior to test) -CT abdomen and pelvis -Modified Barium Swallow -Esophageal manometry with 24hr pH impedence OFF PPI (discontinue nexium 2 weeks prior to testing) -Referral to General Surgery for hernia -Referral to ENT for voice hoarseness Therapeutics: -Continue nexium 20mg 30min-1hr before breakfast -Continue to avoid NSAIDs -Wear loose fitting clothing -GERD lifestyle handout -Dysphagia handout -Begin Metamucil or psyllium husk fiber (make sure it is free of artificial sweetener): 1tsp daily for one week, then 2tsp daily for one week, then 3tsp (1TBSP) daily. May increase slowly up to 2 TBSP daily. Titrate according to what works best for you.This may cause bloating initially but this will improve with continued use. If this supplement causes too much bloating you may try Citrucel. -Constipation Rescue Regimen RTC in 4-5 months with motility BHAVANA to further consolidate the GI care plan for the patient's localteam. Due to the consultative nature of our practice, the patient should continue to work with Jesika Harmon APRN as the primary point of contact for urgent issues, medication refills and adjustments as needed for continuity of care purposes in between visits to our center based on the recommendations above. GERD (Gastroesophageal reflux disease) LIFESTYLE CHANGES -Weight loss (if appropriate) -Stop smoking if you smoke -Avoid trigger foods like: fatty foods, spicy foods, fried foods, chocolate, coffee, peppermint, carbonated beverages -Eat smaller more frequent meals -Avoid lying down for 2-3 hours after eating a meal or drinking acidic beverages -Elevate HOB 6-8 inches using cinder blocks or a wedge under the mattress -Wear loose fitting clothing TROUBLE SWALLOWING TIPS -Avoid foods that are hard or have tough skins. Avoid foods that fall apart in your mouth such as seeds, nuts, muffins. Avoid dry sticky foods such as mashed potatoes without gravy, white bread, peanut butter. -Always eat slowly and carefully, no distractions (such as the TV) when eating -Sit upright -Take small bites of food and small sips of liquid -Do not use straws -Avoid mixing food textures (such as chicken noodle soup or dry cereal with milk) -Remain upright 20-30min after eating You should start a fiber supplement if you are not already taking one: - start Metamucil (psyllium). Get the no sugar added version without artifical sweeteners (such as Metamucil Free). Start at 1 teaspoon daily for 1 week, then 2 teaspoons daily for one week, then maintain one Tablespoon daily afterward. Can slowly increase to 2 Tablespoons daily if still constipated. - Rescue regimen Step 1 if 2 days without a bowel movement) Use a glycerin suppository at night then try to have a bowel movement in 10-15 minutes Step 2 if 3 days without a bowel movement) If the glycerin does not work, use a warm (not hot) tap water enema Step 3 if 4 days without a bowel movement) Try taking senna (up to four tabs), two dulcolax 5mg oral tabs or a dulcolax suppository 30 minutes later depending on what works best for you. Healthy Bowel Habits 1. Eat all of your meals (breakfast, lunch, and dinner) at a predictable time each day. The bowel functions best when food is introduced at the same regular intervals. 2. Eat foods in similar amounts. The bowel functions best when food is in similar quantity. The size of different meals taken through the day may vary, but the amount of food eaten at a given meal (breakfast, lunch, or dinner) should be about the same quantity from day to day. 3. Breakfast is the most important meal involved in bowel stimulation. Make sure you eat breakfast every day. 4. Eat a high fiber diet that includes both soluble and insoluble fiber. 5. Keep caffeine to a minimum. Caffeine is a diuretic drawing fluid from your colon and leaving your stools hard. 6. Drink plenty of decaffeinated fluids. Ideally a person should drink 64 ounces a day or 8 glassesof water, especially if you are eating a fiber-rich diet. This may not be possible for people suffering from kidney disease, heart disease or urinary problems. 7. Exercise daily. Exercise increases colonic transit time. Bowel function is helped most when exercise is at a consistent daily time. Bowel Movement Technique Find your best time of day to have a bowel movement. Usually the best time of day for a bowel movement will be a half hour to an hour after breakfast. For some people a half hour to an hour after lunch will work better. These times are best because the body uses the gastro-colic reflex, a stimulation of bowel motion that occurs with eating, to help produce a bowel movement. Make sure that you arenot rushed and have convenient access to a bathroom at this time. ? Sit on toilet and lean forward, resting forearms on thighs. Lift heels or place feet on stool. ? Alternate position-may try leaning forward and grasping ankles. ? Relax rectum, feeling it slightly bulge outward. ? Keeping lips, jaw and mouth open will facilitate relaxation of the pelvic floor during your bowelmovement. ? Breathe in through nose and exhale through mouth or perform gentle hissing through the teeth. Gently direct the air down and back to the rectum, keeping your abdomen firm. ? Post- patients or patients with perineal descent should place fingers externally on the perineum (area between vagina and rectum). ? When finished -contract pelvic floor muscles to restore normal pelvic floor tone. Repeat 3-4 times. If still unsuccessful, contract the pelvic floor and get off the toilet. Avoid straining documented in this encounter Progress Notes * Jonel Dangelo APRN - 06/30/2023 1:00 PM EDT Images from the original note were not included. Chief Complaint: Barrett Salvador is a 77 y.o. patient referred for consultation by Dr. Harmon for heartburn, dysphagia, abdominal pain, colon polyps History of Present Illness: 77 y.o. male with past medical history significant for HTN, sleep apnea, osteoarthritis, fibromyalgia, colon polyps, pneumonia (2 months ago). Heartburn >10 years. On PPI daily has heartburn daily. Usually has heartburn after coffee or dinner. Sleeps with HOB up Endorses dysphagia to solids and liquids can occur daily. This began 5-6 years ago. Stable over time. Wait until it passes. Has some voice hoarseness started after pneumonia. Endorses feeling of phlegm. Denies frequent cough Has been intentionally losing weight Once every 6-7 months has an episode of N&V Occasional lower abdominal pain every day when sitting in the truck. Improves with walking around. 3-01/23. This pain began a few years ago, sudden onset, stable in frequency and severity Variable bowel pattern of diarrhea and constipation. Has BM every 2 days. Diarrhea depends on what he eats, like fast food causes diarrhea. Once in a while gets more constipated. Occasional blood on toilet tissue, this has been occurring for years. Current Regimen: Tums PRN-takes it 1-2 times a day Nexium 20mg in the morning. Tries to take before breakfast. 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 aspirin EC 81 mg EC (DR) tablet Take 81 mg by mouth. No facility-administered medications prior to visit. Allergies: is allergic to coconut and atorvastatin. Past Medical History: has a past medical history of Colon polyps, Fibromyalgia, Hypertension, Osteoarthritis, Pneumonia, and Sleep apnea. Past Surgical History: has no past surgical history on file. Family History: family history includes Liver Cancer in his brother; Liver Cancer (age of onset: 58) in his father; Pancreatic Cancer (age of onset: 58) in his father. denies family history of colon cancer, IBD, or celiac disease in mother father or other family members Social History: reports that he has quit smoking. His smoking use included cigarettes. He has neverused smokeless tobacco. He reports current alcohol use of about 7.0 standard drinks per week. He reports that he does not use drugs. Physical Exam: VITAL SIGNS: BP 138/62 (BP Location (NBP): Right arm, Patient Position: Sitting, BP Cuff Sizes: Adult (25-34 cm)) Pulse 65 Ht 172.7 cm (5' 8) Wt 83.7 kg (184 lb 8 oz) BMI 28.05 kg/m?? BMI: Body mass index is 28.05 kg/m??. Gen: nad, normal body habitus Eyes: no scleral icterus GI: soft without masses, nontender, nondistended, epigastric hernia Skin: warm, dry, no rashes, no induration Neurologic: intact to light touch Psych: appropriate affect, a+ox3 Questionnaire: No data to display Laboratory studies, imaging, and procedures (my review of prior records): Assessment/Plan: Mr. Salvador is a 77 y.o. patient with past medical history significant for HTN, sleep apnea, osteoarthritis, fibromyalgia, colon polyps, pneumonia (2 months ago). Barrett presents with the following: #Heartburn >10 years. Uncontrolled on PPI. Has symptoms daily. Takes Tums 1-2 times a day #Dysphagia to solids and liquids daily. Began 5-6 years ago suddenly, stable in severity and frequency. #Voice hoarseness: Developed after he was diagnosed with pneumonia 2 months ago. Denies frequent cough #Lower abdominal pain: usually occurs daily when driving in truck. Improves whe he walks around. Began suddenly a few years ago and has been stable in frequency and severity #Variable bowel pattern: Has BM q2 days. Once in a while becomes more constipated. Diarrhea with certain foods. BRBPR occasionally, has occured for years. Patient states last colonoscopy was possiblyin 2008. Recommend upper endoscopy JADE to rule out structural cause of dysphagia such as malignancy, schatzki's ring, stricture, requesting bx to r/o EOE. Recommend colonoscopy to rule out structural cause of BRBPR and for personal history of colon polyps. Recommend CT abd/pelvis to investigate for structural cause of lower abdominal pain and further assess epigastric hernia found on physical exam today.Recommend barium swallow to investigate for oropharyngeal dysphagia (it should be noted that he hadpneumonia a few months ago). Recommend HREM to rule out motility disorder of the esophagus and 24hrpH impedence OFF PPI to r/o GERD. Will refer patient to General surgery for further assessment and to obtain recommendation on epigastric hernia. Will place referral to ENT for voice hoarseness. Recommend he continue nexium daily, although he was instructed to d/c medication prior to EGD and 24r pH impedence. Recommend he begin taking fiber supplement daily. We discussed that complete symptom relief may not be a fully achievable goal for this chronic condition, but that improvement in quality of life, healthy days at work and family functions, and also general symptom improvement may be more reasonable goals. We discussed that treatments should be tried individually and for periods of at least 4-8 weeks to truly assess symptom response. I did my bestto answer questions to the fullest ability. We discussed that recommended treatments should be tried individually for at least three months at a time to truly assess for a meaningful response, or as long as tolerated, before changing therapy. Recommendations: Diagnostics: -EGD/Colonoscopy (JADE) dysphagia, heartburn refractory to PPI >5 years, concern for BE, lower abdominal pain, BRBPR, personal history of colon polyps -Modified barium swallow for dysphagia, history of pneumonia -HREM with 24hr pH impedence OFF medication (discontinue nexium 2 weeks prior to treatment) -CT abdomen and pelvis for hernia, lower abdominal pain -Celiac panel, CMP, CBC -Referral to General surgery for epigastric hernia -Referral to ENT for voice hoarseness Therapeutics: -Continue nexium 20mg 30min-1hr before breakfast -Continue to avoid NSAIDs -Wear loose fitting clothing -GERD lifestyle handout -Dysphagia handout -Begin Metamucil or psyllium husk fiber (make sure it is free of artificial sweetener): 1tsp daily for one week, then 2tsp daily for one week, then 3tsp (1TBSP) daily. May increase slowly up to 2 TBSP daily. Titrate according to what works best for you.This may cause bloating initially but this will improve with continued use. If this supplement causes too much bloating you may try Citrucel. -Constipation Rescue Regimen RTC in 4-5 months with motility BHAVANA to further consolidate the GI care plan for the patient's localteam. Due to the consultative nature of our practice, the patient should continue to work with Jesika Harmon APRN as the primary point of contact for urgent issues, medication refills and adjustments as needed for continuity of care purposes in between visits to our center based on the recommendations above. TIME SPENT WITH PATIENT Time spent reviewing records prior to this encounter on day of appointment: 0 minutes Time spent during encounter with patient including counselin minutes Time spent documenting encounter after office visit: 10 minutes Jonel Dangelo APRN [facility] [place] [id number] documented in this encounter Plan of Treatment Scheduled Orders Name Type Priority Associated Diagnoses Orde r Schedule ENDOSCOPY CASE REQUEST: EGD, UPPER GI ENDOSCOPY (WRVU 2.09), COLONOSCOPY, DIAGNOSTIC (WRVU 3.26) Procedures Routine Heartburn Dysphagia, unspecified type Voice hoarseness Lower abdominal pain BRBPR (bright red blood per rectum) Personal history of colonic polyps Ordered: 06/30/2023 High Resolution Esophageal Manometry GI Routine Heartburn Dysphagia, unspecified type Voice hoarseness Lower abdominal pain BRBPR (bright red blood per rectum) Personal history of colonic polyps Expected: 06/30/2023, Expires: 12/28/2024 pH Impedance - 24 Hour GI Routine Heartburn Dysphagia, unspecified type Voice hoarseness Lower abdominal pain BRBPR (bright red blood per rectum) Personal history of colonic polyps Expected: 06/30/2023 (Approximate), Expires: 12/28/2024 Scheduled Referrals Name Type Priority Associated Diagnoses Orde r Schedule Referral to Speech Therapy Outpatient Referral Routine Heartburn Dysphagia, unspecified type Voice hoarseness Lower abdominal pain BRBPR (bright red blood per rectum) Personal history of colonic polyps Ordered: 06/30/2023 Referral to General Surgery Outpatient Referral Routine Epigastric hernia Ordered: 06/30/2023 Referral to ENT Outpatient Referral Routine Heartburn Dysphagia, unspecified type Voice hoarseness Lower abdominal pain BRBPR (bright red blood per rectum) Personal history of colonic polyps Epigastric hernia Ordered: 06/30/2023 documented as of this encounter Results * CT Abdomen & Pelvis w Contrast (09/08/2023 9:11 AM EST) Anatomical Region Laterality Modality Abdomen, Pelvis Computed Tomogra phy Impressions 09/08/2023 9:40 AM EST 1. ??No acute process in the abdomen or pelvis. 2. ??Hepatic steatosis. Thank you for letting us participate in the care of this patient. ??If you are a health care provider and have any questions regarding this report, please contact the number below. ??For patients who have questions please contact the health childcare center administrator that requested your imaging first. ? Electronically signed by: YUMIKO FISCHER MD, [facility] ([phone]), at 09/08/2023 9:40 AM Narrative 09/08/2023 9:40 AM EST EXAMINATION: CT ABDOMEN AND PELVIS W CONTRAST CLINICAL HISTORY: LLQ abdominal pain; RLQ abdominal pain (Age >= 14y) epigastric pain TECHNIQUE: Helical CT of the abdomen and pelvis following the intravenous administration of contrast. 108 cc Omnipaque 350. Oral contrast was administered. COMPARISON: None FINDINGS: Lower chest: Bibasilar atelectasis. Coronary artery calcification. Liver: Diffuse low attenuation of the hepatic parenchyma without focal lesion. Normal hepatic size. Bile ducts: Nondilated. Gallbladder: No calcified gallstones. Normal caliber wall. Pancreas: Mild fatty replacement, particularly in the head. No ductal dilation. Spleen: Normal. Adrenals: Normal. Kidneys: Symmetric enhancement. No hydronephrosis. Urinary Bladder: Normal. Vasculature: Infrarenal abdominal aortic ectasia measuring 2.3 cm with eccentric plaque. The portal vein is patent. Lymph Nodes: No enlarged lymph nodes. Bowel: Nondilated small and large bowel. The terminal ileum and appendix are normal. Diverticulosis coli, particularly of the sigmoid and left colon. Peritoneum and retroperitoneum: No free fluid or loculated fluid collection. No pneumoperitoneum. No mesenteric inflammation. Abdominal wall: Fat-containing left inguinal hernia. Tiny fat-containing umbilical hernia. Reproductive organs: Enlarged prostate. Osseous structures: No suspicious lesions. Thoracolumbar degenerative disc disease most pronounced at the lower lumbar levels. Procedure Note Yumiko Fischer MD - 09/08/2023 EXAMINATION: CT ABDOMEN AND PELVIS W CONTRAST CLINICAL HISTORY: LLQ abdominal pain; RLQ abdominal pain (Age >= 14y) epigastric pain TECHNIQUE: Helical CT of the abdomen and pelvis following theintravenous administration of contrast. 108 cc Omnipaque 350. Oral contrast was administered. COMPARISON: None FINDINGS: Lower chest: Bibasilar atelectasis. Coronary artery calcification. Liver: Diffuse low attenuation of the hepatic parenchyma without focallesion. Normal hepatic size. Bile ducts: Nondilated. Gallbladder: No calcified gallstones. Normal caliber wall. Pancreas: Mild fatty replacement, particularly in the head. No ductaldilation. Spleen: Normal. Adrenals: Normal. Kidneys: Symmetric enhancement. No hydronephrosis. Urinary Bladder: Normal. Vasculature: Infrarenal abdominal aortic ectasia measuring 2.3 cm witheccentric plaque. The portal vein is patent. Lymph Nodes: No enlarged lymph nodes. Bowel: Nondilated small and large bowel. The terminal ileum and appendixare normal. Diverticulosis coli, particularly of the sigmoid and left colon. Peritoneum and retroperitoneum: No free fluid or loculated fluidcollection. No pneumoperitoneum. No mesenteric inflammation. Abdominal wall: Fat-containing left inguinal hernia. Tiny fat-containing umbilical hernia. Reproductive organs: Enlarged prostate. Osseous structures: No suspicious lesions. Thoracolumbar degenerativedisc disease most pronounced at the lower lumbar levels. IMPRESSION 1. No acute process in the abdomen or pelvis. 2. Hepatic steatosis. Thank you for letting us participate in the care of this patient. If youare a health care provider and have any questions regarding this report,please contact the number below. For patients who have questions please contactthe health childcare center administrator that requested your imaging first. Electronically signed by: YUMIKO FISCHER MD, [facility]([phone]), at 09/08/2023 9:40 AM Jonel Dangelo APRN IMG CT ORDERABLES * XR Fluoro Esophagram (Modified/Video Swallow Pharynx) [...] who have questions please contact the health childcare center administrator that requested your imaging first. ? Electronically signed by: Marie Taylor MD, [facility] ([phone]), at 08/30/2023 2:59 PM Narrative 08/30/2023 2:59 [...] patients who have questions please contactthe health childcare center administrator that requested your imaging first. Electronically signed by: Marie Taylor MD, [facility]([phone]), at 08/30/2023 2:59 PM Jonel Dangelo APRN IMG FLUORO ORDERABL ES documented in this encounter Visit Diagnoses Diagnosis Heartburn Dysphagia, unspecified type Voice hoarseness Dysphonia Lower abdominal pain Abdominal pain, other specified site BRBPR (bright red blood per rectum) Hemorrhage of rectum and anus Personal history of colonic polyps Epigastric hernia Other ventral hernia without mention of obstruction or gangrene Heartburn Dysphagia, unspecified type Voice hoarseness Dysphonia Lower abdominal pain Abdominal pain, other specified site BRBPR (bright red blood per rectum) Hemorrhage of rectum and anus Personal history of colonic polyps Heartburn Dysphagia, unspecified type Voice hoarseness Dysphonia Lower abdominal pain Abdominal pain, other specified site BRBPR (bright red blood per rectum) Hemorrhage of rectum and anus Personal history of colonic polyps documented in this encounter Care Teams Laboratory Technician Relationship Specialty Start Date End Date Jesika Harmon APRN [address] [place] [id number] PCP - General Family Medicine 12/09/22 documented as of this encounter
--- OUTSIDE RECORDS SUMMARY | 2024-11-26 14:03 | XMS_ITS | Encounter Summary ---
[place] [address] Care Team Providers Care Forcer Maker Name Role Phone Jesika Harmon BHARGAV Primary Care Provider +1- [phone] Encounter Details Date Type Department Care Team (Late st Contact Info) Description 06/30/2023 Telephone [place] [address] Dio Kauffman Social History Tobacco Use Types Packs/Day Years [...] encounter Miscellaneous Notes * Telephone Encounter - Dio Kauffman - 07/14/2023 12:01 PM EDT No response from patient. Letter sent. Referral closed. * Telephone Encounter - Dio Kauffman - 07/07/2023 8:14 AM EDT Inbound/Outbound: Outbound Spoke to Patient/Left Message: Left message Notes: Outbound call to patient to schedule motility lab testing from referral. Left message askingfor callback to schedule. Lvm 2nd attempt. Return calls can be handled by: [facility] Silk Screen Printer Helper * Telephone Encounter - Dio Kauffman - 06/30/2023 2:53 PM EDT Inbound/Outbound: Outbound Spoke to Patient/Left Message: Left message Notes: Outbound call to patient to schedule motility lab testing from referral. Left message askingfor callback to schedule. Return calls can be handled by: [facility] Silk Screen Printer Helper documented in this encounter Plan of Treatment Not on file documented as of this encounter Visit Diagnoses Not on filedocumented in this encounter Care Teams Forcer Maker Relationship Specialty Start Date End Date Jesika Harmon APRN [address] [place] [id number] PCP - General Family Medicine 12/09/22 documented as of this encounter
--- OUTSIDE RECORDS SUMMARY | 2024-11-26 14:03 | XMS_ITS | Encounter Summary ---
Author Organization [facility] Address [address] [place] [address] Care Team Providers Care Smt Operator Name Role Phone Unavailable Primary Care Provider Unavailabl e Encounter Details Date Type Department Care Team (Latest Contact Info) Description 08/31/1999 14:19 EST Hospital Encounter [facility] - Other [address] [place] [address] Enriquez, Rayo Brandt MD [address] [place] [address] Unknown, Provider, Discharge Disposition: Auto Discharge Social History Tobacco [...] Procedure Name Priority Date/Time Associated Diagnosis Comments BACTERIAL CULTURE, FECES Routine 09/02/1999 15:00 EST BUN Routine 08/31/1999 16:06 EST PSA TOTAL, DIAGNOSTIC Routine 08/31/1999 16:06 EST HEPATIC FUNCTION PANEL (ALB,ALK PHOS,ALT,AST,DBIL,TOT EDY,TOT PROT) Routine 08/31/1999 16:06 EST ELECTROLYTES Routine 08/31/1999 16:06 EST documented in this encounter Results * BACTERIAL CULTURE, FECES (09/02/1999 15:00 EST) Specimen Description Feces [facility] Result No Salmonella, Shigella, Campylobacte r, Yersinia, or E. coli O157:H7 isolated [facility] Report Status Final [id number] [facility] 09/02/1999 15:0 0 EST 09/02/1999 18:40 EST Rayo Enriquez MD MICROBIOLOGY - GENERAL OR DERABLES Final Result Performing Organization Address [facility] de Phone Number [facility] [address] [place] [address] * PSA (08/31/1999 16:06 EST) Pathologist [facility] PSA 1.4 0 - 3.5 ng/ml [facility] Comment: Serum PSA concentration should not be interpreted as absolute evidence for the presence or absence of malignant disease. Assayed utilizing Grokr chemiluminescent technology. Values obtained by using different assay methods cannot be used interchangeably. 08/31/1999 16:0 6 EST 08/31/1999 16:06 EST Rayo Enriquez MD CHEMISTRY & BLOOD GAS ORD ERABLES Final Result Performing Organization Address [facility] de Phone Number [facility] [address] [place] [address] * ELECTROLYTES (08/31/1999 16:06 EST) Sodium 140 136 - 145 mEq/L [facility] Potassium 4.0 3.5 - 5.0 mEq/L [facility] Chloride 101 96 - 110 mEq/L [facility] CO2 27 24 - 30 mEq/L [facility] 08/31/1999 16:0 6 EST 08/31/1999 16:06 EST Rayo Enriquez MD CHEMISTRY & BLOOD GAS ORD ERABLES Final Result Performing Organization Address [facility] Co de Phone Number [facility] [address] [place] [address] * LIVER FUNCTION TESTS (08/31/1999 16:06 EST) Albumin 4.0 3.0 - 5.5 g/dl [facility] Total Alkaline Phosphatase 72 38 - 126 U/L [facility] ALT 50 15 - 75 U/L [facility] AST 26 8 - 50 U/L [facility] Unconjugated Bilirubin 0.3 0.1 - 1.1 mg/dl [facility] Conjugated Bilirubin 0.0 0.0 - 0.3 mg/dl [facility] Bilirubin, Total 0.7 0.2 - 1.3 mg/dl [facility] 08/31/1999 16:0 6 EST 08/31/1999 16:06 EST Rayo Enriquez MD CHEMISTRY & BLOOD GAS ORD ERABLES Final Result Performing Organization Address [facility] Co de Phone Number [facility] [address] [place] [address] * BUN (08/31/1999 16:06 EST) BUN 14 10 - 26 mg/dl [facility] 08/31/1999 16:0 6 EST 08/31/1999 16:06 EST Rayo Enriquez MD CHEMISTRY & BLOOD GAS ORD ERABLES Final Result [facility] [address] [place] [address] documented in this encounter Visit Diagnoses Not on filedocumented in this encounter
--- OUTSIDE RECORDS SUMMARY | 2024-11-26 14:03 | XMS_ITS | Encounter Summary ---
Author Organization [facility] [address] [place] [address] Care Team Providers Care Aerosol Supervisor Name Role Phone Jesika Harmon APRN Primary Care Provider +1- [phone] Encounter Details Date Type Department Care Team (Late st Contact Info) Description 10/23/2023 Orders [place] [address] Marilee Brambila MD [facility] [place] [address] Acute gastric ulcer without hemorrhage or perforation [...] obstruction documented in this encounter Care Teams Aerosol Supervisor Relationship Specialty Start Date End Date Jesika Harmon APRN [address] [place] [id number] PCP - General Family Medicine 12/09/22 documented as of this encounter
--- OUTSIDE RECORDS SUMMARY | 2024-11-26 14:03 | XMS_ITS | Encounter Summary ---
Author Organization [facility] [place] [address] Care Team Providers Care Fringe Weaver Name Role Phone Jesika Harmon APRN Primary Care Provider +1- [phone] Encounter Details Date Type Department Care Team (Latest Contact Info) Description 12/05/2023 Travel Social History Tobacco Use Types Packs/Day [...] on filedocumented in this encounter Care Teams Fringe Weaver Relationship Specialty Start Date End Date Jesika Harmon APRN [address] [place] [id number] PCP - General Family Medicine 12/09/22 documented as of this encounter
--- OUTSIDE RECORDS SUMMARY | 2024-11-26 14:03 | XMS_ITS | Encounter Summary ---
Author Organization [facility] [place] [address] Care Team Providers Care Flower Picker Name Role Phone Jesika Harmon APRN Primary Care Provider +1- [phone] Encounter Details Date Type Department Care Team (Latest Contact Info) Description 08/30/2023 Travel Social History Tobacco Use Types Packs/Day [...] on filedocumented in this encounter Care Teams Flower Picker Relationship Specialty Start Date End Date Jesika Harmon APRN [address] [place] [address] PCP - General Family Medicine 12/09/22 documented as of this encounter
--- OUTSIDE RECORDS SUMMARY | 2024-11-26 14:03 | XMS_ITS | Encounter Summary ---
Author Organization [facility] [place] [address] Care Team Providers Care Wireline Field Operator Name Role Phone Jesika Harmon Archie DURANT Primary Care Provider +1- [phone] Reason for Visit * Speech Therapy (Routine) - Closed Specialty Diagnoses / Procedures Referred By Nelia sanford Referred To Contact Speech Therapy Diagnoses Heartburn Dysphagia, unspecified type Voice hoarseness Lower abdominal pain BRBPR (bright red blood per rectum) Personal history of colonic polyps RFV Jonel Chacon, BHARGAV [facility] [place] [address] [facility] [place] [address] Referral ID Status Reason Start Date Expiration Date V isits Requested Visits Authorized [id number] Closed Evaluate and Treat 06/30/2023 06/29/2024 100 100 Encounter Details Date Type Department Care Team (Latest Contact Info) Description 08/30/2023 2:00 PM EST Procedure [place] [address] Isaias Dubose, CRYSTAL GAZER Dysphagia, unspecified type Social History Tobacco Use Types Packs/Day Years Used Date Smoking Tobacco: Former Cigarettes Smokeless Tobacco: Never Alcohol Use Standard Drinks/Week Comments Yes 7 (1 standard drink = 0.6 oz pur e alcohol) Sex and Gender Information Value Date Recorded Sex Assigned at Not on file Gender Identity Not on file Sexual Orientation Not on file documented as of this encounter Miscellaneous Notes * Initial Evaluation - Isaias Dubose, CRYSTAL GAZER - 08/30/2023 2:00 PM EST Speech-Language Pathology Modified Barium Swallow Evaluation Patient Name: Barrett Salvador Date of : 1945 Referring MD: Jonel Dangelo Date Seen by MD: 06/30/2023. Diagnosis: Dysphagia Date of Onset: 5-6 years ago as per hx Date of Evaluation: 08/30/2023 Total Treatment Time: 45 minutes Certification Period: Evaluation only Total Timed Code Treatment: 0 minutes Patient Profile: Barrett Salvador is a 77 y.o. male referred by Dr. Jonel Dangelo for for heartburn, dysphagia, abdominal pain, colon polyps . PMHx: 77 y.o. male with past medical history significant for HTN, sleep apnea, osteoarthritis, fibromyalgia, colon polyps, pneumonia (April 2023). As per GI note, Heartburn >10 years. On PPI daily has [...] in the truck. Improves with walking around. 3-4/10. This pain began a few years ago, sudden onset, stable in frequency and severity Variable bowel pattern of diarrhea and constipation. Has BM every 2 days. Diarrhea depends on what he eats, like fast food causes diarrhea. Once in a while gets more constipated. Occasional blood on toilet tissue, this has been occurring for years. GI recommended MBS to assess for pharyngeal dysphagia and aspiration in setting of recent PNA. Prior Level of Swallow Function: Has had long standing c/o dysphagia and GERD. Subjective: Every once and a while, try to cook meat soft, chew longer, big pills feel like they get stuck sometimes Reflux Symptom Index (RSI) The RSI (Abby, Foreign, & Berkley, 2002) is standardized patient-reported measure of laryngopharyngeal reflux symptoms. An RSI score of 12 or higher is considered abnormal and reflects a possible increased risk for reflux. Pt's responses are summarized below: Rating scale: 0 = no problem, 5 = severe problem Hoarseness or a problem with your voice 3 Clearing your throat 4 Excess throat mucus or post-nasal drip 3 Difficulty swallowing food, liquids, or pills 2 Coughing after you eat or after lying down (sleeps w/ HOB up) 2 Breathing difficulties or choking episode 2 Troublesome or annoying cough 3 Sensations of something sticking in your throat or a lump in your throat 2 Heartburn, chest pain, indigestion, or stomach acid coming up 4 Total RSI Score: 25 Objective: Pt seen for evaluation today. Radiologist was present for entire study. Pain: Pt. denies pain at this time. Current Diet: Regular solids and Thin liquids Feeding / Oral Care Status: Pt is independent Cognitive-Linguistic Status: alert, oriented to person, place, and time and affect appropriate to mood Positioning: Sitting in Haustead chair at approximately 85 degrees hip flexion. Oral / Laryngeal Mechanism Clinical Assessment WFL: Pt reports normal sensation Symmetrical presentation, no facial deviation Labial, buccal, lingual, jaw, velar ROM, strength, agility & coordination WFL Adequate laryngeal elevation to palpation Able to produce volitional cough, swallow Motor speech and voice quality WNL Normal resonance Dentition: intact Difficulties Observed: No significant difficulties Bolus Presentation(s): (all mixed with Barium) Thin liquid by cup Puree Moist, chopped solid Regular solid consistency Pill w/ thin liquid by cup Oral Preparatory Phase Lip closure: No labial escape Tongue control during bolus hold: Cohesive bolus between tongue to palatal seal Bolus preparation/mastication: Timely and efficient chewing and mashing Bolus transport/Lingual motion: Brisk tongue motion Oral residue: Trace residue lining oral structures Initiation of pharyngeal swallow: Bolus head in valleculae Pharyngeal Phase: Soft palate elevation: No bolus between soft palate / pharyngeal wall Laryngeal elevation: Complete superior movement of thyroid cartilage with complete approximation ofarytenoids to epiglottic petiole Anterior hyoid excursion: Complete anterior movement Epiglottic movement: Complete inversion Laryngeal vestibule closure: Incomplete; narrow column air / contrast in laryngeal vestibule Pharyngeal stripping wave: Present - complete PE segment opening: Complete distension and complete duration; no obstruction of flow Tongue base retraction: No contrast between tongue base and posterior pharyngeal wall Pharyngeal residue: Complete pharyngeal clearance Esophageal Phase: Esophageal clearance upright position: Complete clearance; esophageal coating Modifications Attempted: None needed Aspiration / Penetration Scale Score (James Pendleton et al. Dysphagia, 1995) 1 = no material enters the airway (thin liquid, puree, soft solid, solid, pill) 2 = material enters the airway, does not touch the vocal cords, and is completely ejected (w/ thin liquid when used to assist in swallowing pill) 3 = material enters the airway, does not touch the vocal cords, but is not ejected 4 = material enters the airway, contacts the vocal cords, but is ejected 5 = material enters the airway, contacts the vocal cords, but is not ejected 6 = material enters the airway, passes below the vocal cords, and is ejected 7 = material passes below the vocal cords, is not ejected, but there is effort made to expel material 8 = material passes below the vocal cords, and there is no attempt to eject it Dysphagia Outcome Severity Scale (JOSE): Level 6: Within functional limits/modified independence -Normal diet, functional swallow -Mild oral or pharyngeal delay, retention or trace epiglottal undercoating that independently/spontaneously clears -May need extra time for meal -Have no aspiration across consistencies Education: The patient has been educated on results and recommendations, and verbalized understanding. Assessment: Pt w/ c/o of intermittent cough or globus sensation w/ solids and liquids, noting need to soften some harder to chew foods and to eat and drink more slowly. Oropharyngeal swallow is Within Functional Limits w/ only one instance of shallow trace penetration noted during examination, which is considered normal for older adults.. Diagnosis: Suzy-Pharyngeal Swallow WFL Recommendations: Diet: Regular solids, Thin liquids (soften and moisten hard to chew, dry solids w/ sauces, soups, gravies, juices, etc) Medications: one at at time Aspiration precautions: Upright position during meals and for at least 30 mins following Small sips and bites while eating Slow rate; swallow between bites Excellent oral care GERD PRECAUTIONS Plan: No therapy recommended at this time for dysphagia management. Pt in agreement with treatment plan. Thank you for this consult with this patient. Please feel free to page me with any questions or concerns. ISAIAS DUBOSE, CRYSTAL GAZER MA, [facility] [phone] Speech-Language Pathology Outpatient Rehabilitation Department documented in this encounter Plan of Treatment Scheduled Referrals Name Type Priority Associated Diagnoses Orde r Schedule Referral to Speech Therapy Outpatient Referral Routine Heartburn Dysphagia, unspecified type Voice hoarseness Lower abdominal pain BRBPR (bright red blood per rectum) Personal history of colonic polyps Ordered: 06/30/2023 documented as of this encounter Visit Diagnoses Diagnosis Dysphagia, unspecified type documented in this encounter Care Teams Wireline Field Operator Relationship Specialty Start Date End Date Jesika Harmon APRN [address] [place] [id number] PCP - General Family Medicine 12/09/22 documented as of this encounter
--- OUTSIDE RECORDS SUMMARY | 2024-11-26 14:03 | XMS_ITS | Encounter Summary ---
Author Organization [facility] Address [address] [place] [address] Care Team Providers Care Structural Analysis Engineer Name Role Phone Unavailable Primary Care Provider Unavailabl e Encounter Details Date Type Department Care Team (Late st Contact Info) Description 04/08/2003 9:57 EDT - 04/08/2003 11:59 EDT Hospital Encounter [facility] [address] [place] [address] Catalina De La Cruz MD [address] [facility] [address] [place] [phone] Discharge Disposition: Auto Discharge Social History Tobacco [...] Date/Time Associated Diagnosis Comments SURGICAL PATHOLOGY Routine 04/08/2003 0:00 EDT documented in this encounter Results * SURGICAL PATHOLOGY (04/08/2003 0:00 EDT) Pathology Report: SURGICAL PATHOLOGY REPORT Reports generated via electronic interface contain original data; however they are lacking the format of the original report. Caution should be taken when reading/interpreti ng unformatted reports. Name: ? BARRETT NGO ? Accession #: ? [id number] ? : ? 1945 (Age: 57) ??M ? Collect Date: ? 04/08/2003 ? Location: ? [facility] ? Receive Date: ? 04/08/2003 ? Provider: CATALINA DE LA CRUZ MD Copy to: KAMI CATES MD ? Final Pathologic Diagnosis: ? Colorectum, sigmoid polyps, rectum, biopsy: 1. ?Three fragments of tubular adenoma; no high grade dysplasia. 2. ?One fragment of hyperplastic polyp. 3. ?One fragment of benign colorectal mucosa. Document reviewed and electronically signed by: Anish Ogden MD Report ??Date: 04/10/2003 08:53 By the signature above, the attending physician certifies that he/she has personally conducted a gross and/or microscopic examination of the described specimens and rendered or confirmed the above diagnosis. Specimen(s) Received: ? SC, rectum ??4.0 mm, 2.0 mm Clinical History: ? R/O adenoma Gross Description: ? Received in Hollande's fixative labelled Madeleine and sigmoid polyps, rectum are four wilde soft tissue biopsies ranging from 0.3 x 0.3 x 0.1 cm to 0.4 x 0.2 x 0.1 cm. ??The specimen is entirely submitted in one cassette. ??(Prudencio Red)/[facility] End of Report [facility] 04/08/2003 04/08/2003 13: 57 EDT us Catalina De La Cruz MD PATHOLOGY ORDERABLES Final Resul t [facility] [address] [place] [address] documented in this encounter Visit Diagnoses Not on filedocumented in this encounter
--- OUTSIDE RECORDS SUMMARY | 2024-11-26 14:03 | XMS_ITS | Encounter Summary ---
[facility] Organization [facility] [place] [address] Care Team Providers Care Assistant Professor Of Surgery Name Role Phone Camprieto Jesikaemilia Almanza APRN Primary Care Provider [phone] Reason for Visit * Reason Comments Follow-up * Consultation (Routine) - Closed Specialty Diagnoses / Procedures Referred By Nelia sanford Referred To Contact General Surgery Diagnoses Epigastric hernia Jonel Dagnelo APRN [facility] [place] [address] [facility] Gen Surgery [address] [place] [address] Referral ID Status Reason Start Date Expiration Date V isits Requested Visits Authorized [id number] Closed Consult, Test & Treat 06/30/2023 06/29/2024 1 1 Encounter Details Date Type Department Care Team (Late st Contact Info) Description 12/05/2023 4:00 PM EST Office [place] [address] Shelly Morris MD [facility] [place] [address] Epigastric hernia Social History Tobacco Use Types Packs/Day Years Used Date Smoking Tobacco: Former Cigarettes 1 2 1 965 - 1966 Smokeless Tobacco: Never Alcohol [...] Pulse 67 12/05/2023 4:05 PM EST Temperature - - Respiratory Rate 18 12/05/2023 4:05 PM EST Oxygen Saturation 100% 12/05/2023 4:05 PM EST Inhaled Oxygen Concentration - - Weight 83 kg (183 lb) 12/05/2023 4:05 PM EST Height 167.6 cm (5' 6) 12/05/2023 4:05 PM EST Body Mass Index 29.54 12/05/2023 4:05 PM EST documented in this encounter Progress Notes * Shelly Morris MD - 12/05/2023 4:00 PM EST Mr. Salvador is referred by Jonel Dangelo APRN and Jesika Harmon APRN for evaluation of an epigastric hernia. This 77 y.o. male notes a recent history of a small lump in his epigastrium. Although it has been asymptomatic most of this time, over the last several months he notes that it has gotten steadily larger. During this time, he also notes that the hernia rarely becomes uncomfortable, particularly with lifting or other activities. He denies any symptoms or signs of incarceration or strangulation. Past History: Patient Active Problem List Diagnosis Code Epigastric hernia K43.9 GERD Past Surgical History: Procedure Laterality Date PRO COLONOSCOPY, BIOPSY N/A 10/23/2023 COLONOSCOPY FLEXIBLE, WITH BX (WRVU 3.56) performed by Marilee Brambila MD at [facility] PRO UPPER GI ENDOSCOPY, BIOPSY N/A 10/23/2023 EGD WITH BIOPSY (WRVU 2.39) performed by Marilee Brambila MD at [facility] Medications: Current Outpatient Medications on File Prior to Visit Medication Sig Dispense Refill multivitamin (THERAGRAN) Tablet Take 1 tablet by mouth daily. APPLE CIDER VINEGAR ORAL Take by mouth Daily. omeprazole (PriLOSEC) [address] capsule Take 1 capsule by mouth daily. Take 30 min prior to [id number] capsule 3 aspirin EC 81 mg EC (DR) tablet Take 81 mg by mouth. No current facility-administered medications on file prior to visit. Allergies Coconut and Atorvastatin Social: He denies excess tobacco or alcohol use. No drug use. Family History Problem Relation Age of Onset Liver Cancer Father 58 Pancreatic Cancer Father 58 Liver Cancer Brother Colorectal Cancer Neg Hx Inflammatory Bowel Disease Neg Hx Celiac Disease Neg Hx Esophageal Cancer Neg Hx Stomach Cancer Neg Hx Review of systems: Review of systems is negative for any unexplained weight loss or weight gain. He denies any cough, chest pain or shortness on breath on exertion. He has no fevers, chills or night sweats. He denies headaches, dizziness, weakness, numbness or ataxia. Bowel and bladder elimination is normal. All other system reviews are negative. GEN: NAD HEENT: trachea midline, no scleral icterus PULM: normal respiratory effort CARD: well perfused, stable ABD: soft, non tender, non distended small reducible epigastric hernia Skin: no rash, no diaphoresis MSH: no gross deformity NEURO: GCS 15 PSYCH: normal mood and affect Impression. Minimally symptomatic epigastric hernia. I agree that elective repair is indicated if symptomatic but not urgent nor necessary if not bothersome. The majority of this visit was spent discussing the nature of hernia surgery and its associated risks, including recurrent hernias and infection. He seems fully informed and is wishes to leave it alone for the time being. SHELLY MORRIS MD Jesika Harmon APRN documented in this encounter Plan of Treatment Scheduled Referrals Name Type Priority Associated Diagnoses Orde r Schedule Referral to General Surgery Outpatient Referral Routine Epigastric hernia Ordered: 06/30/2023 documented as of this encounter Visit Diagnoses Diagnosis Epigastric hernia Other ventral hernia without mention of obstruction or gangrene documented in this encounter Care Teams Assistant Professor Of Surgery Relationship Specialty Start Date End Date Jesika Harmon APRN [address] [place] [address] PCP - General Family Medicine 12/09/22 documented as of this encounter
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
--- OUTSIDE RECORDS SUMMARY | 2024-11-26 14:03 | XMS_ITS | Encounter Summary ---
[facility] [place] [address] Care Team Providers Care Manager Of Planning Name Role Phone Jesika Harmon BHARGAV Primary Care Provider +1- [phone] Encounter Details Date Type Department Care Team (Late st Contact Info) Description 08/24/2023 Telephone [place] [phone] Sarahi Alva Social History Tobacco Use Types Packs/Day Years [...] Telephone Encounter - Sarahi Alva - 08/24/2023 3:51 PM EST Barrett Madeleine [id number] Diagnosis/Indication: dysphagia, heartburn refractory to PPI >5 years, concern for BE, lower abdominal pain, BRBPR, personal history of colon polyps. Please obtain bx to r/o EOE Please review patient chart to confirm if previous Endoscopy procedure was performed within system. If yes, take note of Anesthesia type used. If previous procedure found, and with MAC/propofol Anesthesia support was used, schedule this procedure with Anesthesia and skip the Anesthesia portion of questions. If not performed within system, not performed at all, or performed with IVCS, ask Anesthesia questions. SCHEDULING QUESTIONS (ask all patient these questions) Have you ever had a/an Upper Endoscopy & Colonoscopy before? Yes: Date [address] [facility] If yes, did you have any problems with the procedure (such as waking up during the procedure, pain or difficulties afterwards, etc.)? No What type of sedation was used: Other: unkown Do you take any blood thinners or have you been diagnosed with a bleeding disorder that increases your risk of bleeding with procedures? No Do you have a Pacemaker or Defibrillator device? If yes, send pool message to Cardiology with patient information and date or procedure. No Are you a diabetic? If yes, call PCP/managing provider to discuss use of prep and any questions or concerns related to. No Do you take any iron supplements or vitamins that contain iron? Yes multi Do you have a preference regarding the gender of your provider? No ANESTHESIA QUESTIONS (YES to any question, please book with Anesthesia support) Have you ever been diagnosed with Pulmonary Hypertension and/or Congential Heart Disease? No Have you been diagnosed with A-Fib (atrial fibrillation) that is NOT being well controled with medications? No Have you ever had an allergic or adverse reaction to Fentanyl or Versed? No Have you had a problem with sedation or anesthesia? (Waking up during procedure, extreme confusion after, etc.) No Do you have a diagnosis of Obstructive Sleep Apnea that requires the use of a c- pap machine? No Do you use an oxygen tank at home? No Do you use a rescue inhaler more than twice per day? (COPD, severe asthma) No Do you experience breathing problems when you lay flat for a period of time? No Do you take prescription narcotic pain medications, including suboxone or methodone? No SCHEDULING CONFIRMATIONS: Please note any and all parts of your conversation with the patient here. We offer all new patients an opportunity to have an appointment with one of our associate care providers to learn more about your upcoming procedure, ask questions and get answers. These appointmentsare offered via telehealth. Would you be interested in scheduling this appointment? (Only ask if NEW referral patient; skip this question if [facility] GI provider ordered the procedure.) No Is there any other information or concerns you would like to us to share with your care team in relation to your upcoming scheduled procedure? No You must have a responsible constitution party who will drive you to your procedure, stay on campus for the entire duration of your procedure, and drive you home from your procedure. Who will likely be your route cdl driver for the procedure? *Please Verify the height and weight, and adjust if height and/or weight have changed* Estimated body mass index is 28.05 kg/m?? as calculated from the following: Height as of 06/30/23: 172.7 cm (5' 8). Weight as of 06/30/23: 83.7 kg (184 lb 8 oz). Age:77 y.o. documented in this encounter Plan of Treatment Not on file documented as of this encounter Visit Diagnoses Not on filedocumented in this encounter Care Teams Manager Of Planning Relationship Specialty Start Date End Date Jesika Harmon APRN [address] [place] [address] PCP - General Family Medicine 12/09/22 documented as of this encounter
--- OUTSIDE RECORDS SUMMARY | 2024-11-26 14:03 | XMS_ITS | Encounter Summary ---
Author Organization [facility] Address [address] [place] [address] Care Team Providers Care Import Export Coordinator Name Role Phone Unavailable Primary Care Provider Unavailabl e Encounter Details Date Type Department Care Team (Late st Contact Info) Description 01/20/2000 17:46 EDT Hospital Encounter [address] [address] Edgar Concepcion MD Social History Tobacco Use Types Packs/Day [...]
--- OUTSIDE RECORDS SUMMARY | 2024-11-26 14:03 | XMS_ITS | Encounter Summary ---
Author Organization [facility] [place] [address] Care Team Providers Care Hand Slitter Name Role Phone Jesika Harmon BHARGAV Primary Care Provider +1- [phone] Encounter Details Date Type Department Care Team (Latest Contact Info) Description 09/08/2023 7:35 AM EST Laboratory Appointment Lab [address] [place] [address] BRBPR (bright red blood per rectum) Social History Tobacco Use Types Packs/Day Years [...] Priority Date/Time Associated Diagnosis Comments CREATININE Routine 09/08/2023 7:38 AM EST BRBPR (bright red blood per rectum) documented in this encounter Results * Creatinine (09/08/2023 7:38 AM EST) Creatinine 1.06 0.80 - 1.50 mg/dL [facility] Est Glomerular Filtration Rate 73 >=60 mL/min/1. 73 m?? [facility] Comment: This patient's estimated GFR [...] Lab Jonel Dangelo APRN [place] [address] documented in this encounter Visit Diagnoses Diagnosis BRBPR (bright red blood per rectum) Hemorrhage of rectum and anus documented in this encounter Care Teams Hand Slitter Relationship Specialty Start Date End Date Jesika Harmon APRN [address] [place] [address] PCP - General Family Medicine 12/09/22 documented as of this encounter
--- OUTSIDE RECORDS SUMMARY | 2024-11-26 14:03 | XMS_ITS | Encounter Summary ---
Author Organization [facility] Address [address] [place] [address] Care Team Providers Care Linen Clerk Name Role Phone Unavailable Primary Care Provider Unavailabl e Encounter Details Date Type Department Care Team (Late st Contact Info) Description 04/16/2001 21:52 EDT Hospital Encounter [facility] - Other [address] [place] [address] Hua Blanton MD Unknown, Provider, Social History Tobacco Use Types Packs/Day Years [...] Associated Diagnosis Comments COMPLETE BLOOD COUNT Routine 04/16/2001 9:50 EDT PSA TOTAL, DIAGNOSTIC Routine 04/16/2001 9:50 EDT LIPID PROFILE (INCLUDES CHOLESTEROL, TRIGLYCERIDES, HDL, LDL) Routine 04/16/2001 9:50 EDT COMPREHENSIVE METABOLIC PANEL (CMP) Routine 04/16/2001 9:50 EDT documented in this encounter Results * PSA (04/16/2001 9:50 EDT) Pathologist [facility] PSA 2.0 0 - 3.5 ng/ml [facility] Comment: Serum PSA concentration should not be interpreted as absolute evidence for the presence or absence of malignant disease. Assayed utilizing [employer] chemiluminescent technology. Values obtained by using different assay methods cannot be used interchangeably. 04/16/2001 9:50 EDT 04/16/2001 13:31 EDT Hua Blanton MD CHEMISTRY & BLOOD GAS ORDERA BLES Final Result Performing Organization Address [facility] de Phone Number [facility] [address] [place] [address] * LIPID PROFILE (INCLUDES CHOLESTEROL, TRIGLYCERIDES, HDL, LDL) (04/16/2001 9:50 EDT) Pathologist [facility] Cholesterol 213 mg/dl [facility] Comment: Desirable:<200 Borderline:200-239 High Risk:>oj=[id number] Triglycerides 105 35 - 160 mg/dl [facility] HDL 68 mg/dl [facility] Comment: Highly Desirable:>60 Desirable:35-60 High Risk:<35 LDL, Calculated 124 mg/dl [facility] Comment: Desirable:<130 Borderline:130-159 High Risk:>pa=[id number] Chol/HDL Ratio 3.1 [facility] 04/16/2001 9:50 EDT 04/16/2001 13:31 EDT Hua Blanton MD CHEMISTRY & BLOOD GAS ORDERA BLES Final Result Performing Organization Address [facility] de Phone Number [facility] [address] [place] [address] * (ABNORMAL) COMPREHENSIVE METABOLIC PANEL (04/16/2001 9:50 EDT) Potassium 4.0 3.5 - 5.0 mEq/L [facility] Sodium 143 136 - 145 mEq/L [facility] Chloride 101 96 - 110 mEq/L [facility] CO2 31(H) 24 - 30 mEq/L [facility] Total Alkaline Phosphatase 80 38 - 126 U/L [facility] Bilirubin, Total 0.5 0.2 - 1.3 mg/dl [facility] AST 30 8 - 50 U/L [facility] ALT 49 15 - 75 U/L [facility] Albumin 4.3 3.0 - 5.5 g/dl [facility] Total Protein 7.1 6.0 - 8.5 g/dl [facility] Creatinine 1.0 0.7 - 1.5 mg/dl [facility] BUN 10 10 - 26 mg/dl [facility] Calcium 8.9 8.5 - 10.5 mg/dl [facility] Calculated Calcium 9.0 8.5 - 10.5 mg/dl [facility] Glucose, Serum 94 70 - 110 mg/dl [facility] Albumin/Globulin Ratio 1.5 [facility] 04/16/2001 9:50 EDT 04/16/2001 13:31 EDT Hua Blanton MD CHEMISTRY & BLOOD GAS ORDERA BLES Final Result [facility] [address] [place] [address] * (ABNORMAL) HEMAGRAM (04/16/2001 9:50 EDT) WBC 3.63(L) 4.0 - 10.4 K/cmm [facility] RBC 4.99 4.36 - 5.78 M/cmm [facility] Hemoglobin 15.2 13.8 - 17.3 gm/dl [facility] HCT 45.1 39.5 - 50.2 % [facility] MCV 90 81 - 95 fl [facility] MCH 30.4 27.6 - 33.0 pg [facility] MCHC 33.6 32.8 - 36.4 gm/dl [facility] PLT 217 141 - 320 K/cmm [facility] RDW-CV 13.2 11.8 - 14.1 % [facility] 04/16/2001 9:50 EDT 04/16/2001 13:31 EDT us Hua Blanton MD HEMATOLOGY & PF4 ORDERABLES Final Result [facility] [address] [place] [address] documented in this encounter Visit Diagnoses Not on filedocumented in this encounter Additional Health Concerns Infection Onset Date Last Indicated Resolved Time R/O COVID-19 04/15/2020 04/15/2020 04/20/2020 22:1 6 EDT documented as of this encounter
--- OUTSIDE RECORDS SUMMARY | 2024-11-26 14:03 | XMS_ITS | Encounter Summary ---
Author Organization [facility] Address [facility] [address] [place] [address] Care Team Providers Care Machine Loader Name Role Phone Jesika Harmon APRN Primary Care Provider +1- [phone] Reason for Referral * Consultation (Routine) - Closed Specialty Diagnoses / Procedures Referred By Nelia sanford Referred To Contact Gastroenterology Diagnoses Gastroduodenitis, unspecified, without bleeding Gastroduodenitis Jesika Harmon APRN [address] [place] [address] Marilee Brambila MD [facility] [place] [address] Referral ID Status Reason Start Date Expiration Date V isits Requested Visits Authorized [id number] Closed Consult, Test & Treat PCP Updated and/or Approved 02/19/2024 02/18/2025 6 6 Encounter Details Date Type Department Care Team (Late st Contact Info) Description 02/19/2024 Transcribe Orders eDH Incoming Referrals [phone] Jesika Harmon APRN [address] [place] [address] Gastroduodenitis, unspecified, without bleeding Social History Tobacco Use Types Packs/Day Years [...] Schedule Referral to Gastroenterology Outpatient Referral Routine Gastroduodenitis, unspecified, without bleeding Ordered: 02/19/2024 documented as of this encounter Visit Diagnoses Diagnosis Gastroduodenitis, unspecified, without bleeding documented in this encounter Care Teams Machine Loader Relationship Specialty Start Date End Date Jesika Harmon APRN [address] [place] [address] PCP - General Family Medicine 12/09/22 documented as of this encounter
--- OUTSIDE RECORDS SUMMARY | 2024-11-26 14:03 | XMS_ITS | Encounter Summary ---
[place] [address] Care Team Providers Care Fractionation Supervisor Name Role Phone Jesika Harmon APRN Primary Care Provider +1- [phone] Encounter Details Date Type Department Care Team (Late st Contact Info) Description 08/14/2024 Telephone [place] [phone] Dakota Sterling Social History Tobacco Use Types Packs/Day Years Used Date Smoking Tobacco: Former Cigarettes 1 2 965 - 1967 Smokeless Tobacco: Never Alcohol Use Standard Drinks/Week Comments Yes 7 (1 standard drink = 0.6 oz pur e alcohol) Sex and Gender Information Value Date Recorded Sex Assigned at Not on file Gender Identity Not on file Sexual Orientation Not on file documented as of this encounter Miscellaneous Notes * Telephone Encounter - Dakota Sterling - 08/14/2024 3:36 PM EDT Per list from Jennifer Called to schedule EGD Left message sent 2nd letter Order in Anyone can schedule documented in this encounter Plan of Treatment Not on file documented as of this encounter Visit Diagnoses Not on filedocumented in this encounter Care Teams Fractionation Supervisor Relationship Specialty Start Date End Date Jesika Harmon APRN [address] [place] [address] PCP - General Family Medicine 12/09/22 documented as of this encounter
--- OUTSIDE RECORDS SUMMARY | 2024-11-26 14:03 | XMS_ITS | Encounter Summary ---
[place] [address] Care Team Providers Care Inspector Type Name Role Phone Jesika Harmon APRN Primary Care Provider +1- [phone] Encounter Details Date Type Department Care Team (Late st Contact Info) Description 11/14/2023 [place] [phone] Dakota Sterling Social History Tobacco Use Types [...] * Telephone Encounter - Dakota Sterling - 11/14/2023 8:12 AM EST Called to schedule EGD Left message Due late December or early January Tormey/IVCS Order in Anyone can schedule documented in this encounter Plan of Treatment Not on file documented as of this encounter Visit Diagnoses Not on filedocumented in this encounter Care Teams Inspector Type Relationship Specialty Start Date End Date Jesika Harmon APRN [address] [place] [address] PCP - General Family Medicine 12/09/22 documented as of this encounter
--- OUTSIDE RECORDS SUMMARY | 2024-11-26 14:03 | XMS_ITS | Encounter Summary ---
Author Organization [facility] [place] [address] Care Team Providers Care Manager Of Software Name Role Phone Jesika Harmon APRN Primary Care Provider +1- [phone] Encounter Details Date Type Department Care Team (Latest Contact Info) Description 09/08/2023 Travel Social History Tobacco Use Types Packs/Day [...] in this encounter Care Teams Manager Of Software Relationship Specialty Start Date End Date Jesika Harmon APRN [address] [place] [address] PCP - General Family Medicine 12/09/22 documented as of this encounter
--- OUTSIDE RECORDS SUMMARY | 2024-11-26 14:03 | XMS_ITS | Encounter Summary ---
Author Organization [facility] [address] [place] [address] Care Team Providers Care Senior Portfolio Analyst Name Role Phone Jesika Harmon APRN Primary Care Provider +1- [phone] Reason for Visit * Reason Comments Medication Refill Encounter Details Date Type Department Care Team (Late st Contact Info) Description 09/16/2024 [place]ill [place] [address] Marilee Brambila MD [facility] [place] [address] Acute gastric ulcer without hemorrhage or perforation [...] obstruction documented in this encounter Care Teams Senior Portfolio Analyst Relationship Specialty Start Date End Date Jesika Harmon APRN [address] [place] [address] PCP - General Family Medicine 12/09/22 documented as of this encounter
--- OUTSIDE RECORDS SUMMARY | 2024-11-26 14:03 | XMS_ITS | Encounter Summary ---
Author Organization [facility] Address [address] [place] [address] Care Team Providers Care Gas Burner Operator Name Role Phone Unavailable Primary Care Provider Unavailabl e Encounter Details Date Type Department Care Team (Latest Contact Info) Description 09/02/1999 9:45 EST - 09/02/1999 11:59 EST Hospital Encounter [facility] - Other [address] [place] [address] Rayo Enriquez MD [address] [place] [phone] Unknown, Provider, Discharge Disposition: Auto Discharge [...]
--- OUTSIDE RECORDS SUMMARY | 2024-11-26 14:03 | XMS_ITS | Encounter Summary ---
Author Organization [facility] Address [address] [place] [address] Care Team Providers Care Parimutuel Ticket Checker Name Role Phone Unavailable Primary Care Provider Unavailabl e Encounter Details Date Type Department Care Team (Latest Contact Info) Description 11/05/2001 20:31 EST Hospital Encounter [facility] - Other [address] [place] [address] Jennifer Thomas MD [address] [place] [phone] Unknown, Provider, Discharge Disposition: Auto Discharge Social [...] Date/Time Associated Diagnosis Comments THYROID CASCADE Routine 11/05/2001 9:10 EST documented in this encounter Results * THYROID CASCADE (11/05/2001 9:10 EST) TSH 1.07 0.35 - 5.50 uIU/ml [facility] Comment: TSH cascade is not recommended for patients in which pituitary or hypothalamic disorders are suspected. 11/05/2001 9:10 EST 11/05/2001 13:57 EST us Jennifer Thomas MD CHEMISTRY & BLOOD GAS ORDERABLES Final Result Performing Organization Address City/State/[facility] Co de Phone Number [facility] [address] [place] [address] documented in this encounter Visit Diagnoses Not on filedocumented in this encounter
--- OUTSIDE RECORDS SUMMARY | 2024-11-26 14:03 | XMS_ITS | Encounter Summary ---
Author Organization [facility] Address [address] [place] [address] Care Team Providers Care Molder Pipe Covering Name Role Phone Unavailable Primary Care Provider Unavailabl e Encounter Details Date Type Department Care Team (Latest Contact Info) Description 03/07/2003 15:09 EDT Hospital Encounter [facility] - Other [address] [place] [address] Hua Blanton MD Discharge Disposition: Auto Discharge [...]
--- OUTSIDE RECORDS SUMMARY | 2024-11-26 14:03 | XMS_ITS | Encounter Summary ---
Author [facility] [place] [address] Care Team Providers Care Terrazzo Polisher Helper Name Role Phone Jesika Harmon APRN Primary Care Provider +1- [phone] Reason for Visit * Reason Onset Date Comments Appointment 08/02/2023 CT Encounter Details Date Type Department Care Team (Late st Contact Info) Description 08/02/2023 [place] [phone] Deborah Soriano RN Appointment (CT) Social History Tobacco Use Types Packs/Day Years [...] encounter Miscellaneous Notes * Telephone Encounter - Deborah Soriano RN - 08/02/2023 9:48 AM EDT This nurse reached out to patient to assist him in scheduling CT Abd/Pelvis ordered by Dr. Jonel Dangelo on 06/30/23. I spoke with patient and his call was transferred to CT Radiology to schedule above imaging. documented in this encounter Plan of Treatment Not on file documented as of this encounter Visit Diagnoses Not on filedocumented in this encounter Care Teams Terrazzo Polisher Helper Relationship Specialty Start Date End Date Jesika Harmon APRN [address] [place] [address] PCP - General Family Medicine 12/09/22 documented as of this encounter
--- OUTSIDE RECORDS SUMMARY | 2024-11-26 14:03 | XMS_ITS | Encounter Summary ---
Author Organization [facility] [address] [place] [address] Care Team Providers Care Diamond Assorter Name Role Phone Camprieto Jesikaemilia Almanza APRN Primary Care Provider +1- [phone] Reason for Referral * Diagnostic Test (Routine) - Closed Specialty Diagnoses / Procedures Referred By Contac t Referred To Contact Radiology Diagnoses Heartburn Dysphagia, unspecified type Voice hoarseness Lower abdominal pain BRBPR (bright red blood per rectum) Personal history of colonic polyps Procedures CT Abdomen & Pelvis w Contrast Jonel Dangelo APRN [facility] [place] [address] [facility] [place] [address] Referral ID Status Reason Start Date Expiration Date V isits Requested Visits Authorized [id number] Closed Specialty Service Requested 06/30/2023 12/28/2024 1 1 Reason for Visit * Diagnostic Test (Routine) - Closed Specialty Diagnoses / Procedures Referred By Contac t Referred To Contact Radiology Diagnoses Heartburn Dysphagia, unspecified type Voice hoarseness Lower abdominal pain BRBPR (bright red blood per rectum) Personal history of colonic polyps Procedures CT Abdomen & Pelvis w Contrast Jonel Dangelo APRN [facility] [place] [address] [facility] [place] [address] Referral ID Status Reason Start Date Expiration Date V isits Requested Visits Authorized [id number] Closed Specialty Service Requested 06/30/2023 12/28/2024 1 1 Encounter Details Date Type Department Care Team (Latest Contact Info) Description 09/08/2023 7:13 AM EST - 09/08/2023 11:59 PM EST Hospital Encounter CT Scan at [facility] [place] [address] Jonel Dangelo, BHARGAV [facility] [place] [id number] Heartburn; Dysphagia, unspecified type; Voice hoarseness; Lower [...] Name Priority Date/Time Associated Diagnosis Comments CT ABDOMEN AND PELVIS W CONTRAST Routine 09/08/2023 9:11 AM EST Heartburn Dysphagia, unspecified type Voice hoarseness Lower abdominal pain BRBPR (bright red blood per rectum) Personal history of colonic polyps documented in this encounter Results * CT Abdomen & [...] who have questions please contact the health respiratory care specialist that requested your imaging first. ? Electronically signed by: YUMIKO FISCHER MD, [facility] ([phone]), at 09/08/2023 9:40 AM Narrative 09/08/2023 9:40 [...] patients who have questions please contactthe health respiratory care specialist that requested your imaging first. Electronically signed by: YUMIKO FISCHER MD, [facility]([phone]), at 09/08/2023 9:40 AM Jonel Dangelo APRN [facility] ORDERABLES documented in this encounter Visit Diagnoses Diagnosis [...] Action Action Date Dose Rate Site iohexoL (Omnipaque) (350 mg/mL) solution 0-200 mL 0-200 mL, Intravenous, ONCE PRN, 1 dose, Starting on Mon09/08/23 at 0911, Until Mon09/08/23 at 09, Per Protocol, Warning Vesicant/Irritant Medication , Radiology Contrast, Routine Given 09/08/2023 9:11 AM EST 108 mLs iohexoL (Omnipaque) (350 mg/mL) solution 0-50 mL 0-50 mL, Oral, ONCE PRN, 1 dose, Starting on Mon09/08/23 at 0911, Until Mon09/08/23 at 09, Per Protocol, Warning Vesicant/Irritant Medication , Radiology Contrast, Routine Given 09/08/2023 9:11 AM EST 50 mLs documented in this encounter Care Teams Diamond Assorter Relationship Specialty Start Date End Date Jesika Harmon, [employer] [address] [place] [address] PCP - General Family Medicine 12/09/22 documented as of this encounter
--- OUTSIDE RECORDS SUMMARY | 2024-11-26 14:03 | XMS_ITS | Encounter Summary ---
Author Organization [facility] [place] [address] Care Team Providers Care Candle Wrapping Machine Operator Name Role Phone Jesika Harmon APRN Primary Care Provider +1- [phone] Encounter Details Date Type Department Care Team (Latest Contact Info) Description 06/30/2023 Travel Social History Tobacco Use Types Packs/Day [...] on filedocumented in this encounter Care Teams Candle Wrapping Machine Operator Relationship Specialty Start Date End Date Jesiak Harmon APRN [address] [place] [address] PCP - General Family Medicine 12/09/22 documented as of this encounter
[2024-11-26 19:20] LABS: Abs Immature Grans 0.01 10^3/uL (0.0-0.06); Absolute Basophil Count 0.05 10^3/uL (0.0-0.2); Absolute Eosinophil Count 0.18 10^3/uL (0.0-0.7); Absolute Lymphocyte Count 1.13 10^3/uL (1.2-3.4); Absolute Monocyte Count 0.37 10^3/uL (0.1-0.8); Basophils % 0.9 %; Eosinophils % 3.3 %; HGB 12.9 g/dL (13.5-17.5); Immature Grans % 0.2 %; Lymphocytes % 20.8 %; MCH 31.5 pg (27.0-33.0); MCHC 33.9 % (32.0-36.0); MCV 93 fL (80-95); MPV 8.6 fL (8.0-11.0); Monocytes % 6.8 %; Platelet Count 201 10^3/uL (130-400); RBC 4.09 10^6/uL (4.36-5.78); RDW 13.1 % (11.8-14.1); RDW-SD 44.7 fL; WBC 5.44 10^3/uL (4.4-10.8)
[2024-11-26 19:44] LABS: ALT 29 U/L (16-63); AST 23 U/L (15-37); Albumin 3.7 g/dL (3.4-5.0); Alkaline Phosphatase 64 U/L (46-116); Amylase 53 U/L (25-115); Anion Gap 8.5 mmol/L (3-11); BUN 9 mg/dL (7-18); Bilirubin, Total 0.46 mg/dL (0.2-1.0); CO2 25.5 mmol/L (21.0-32.0); CREATININE 1.1 mg/dL (0.70-1.30); Chloride 106 mmol/L (98-107); Estimated GFR 69.14 (mL/min/1.73m2); Glucose 130 mg/dL (74-106); Potassium 4.1 mmol/L (3.5-5.1); Sodium 140 mmol/L (136-145); Total Protein 6.9 g/dL (6.4-8.2)
[2024-11-26 20:27] LABS: Lipase 19 U/L (<78)
== END 2024-11-26 13:55 | disposition home or self-care (01) ==
LOC: NCHCN 13:54
PROVIDERS: PCP Physician Assistant; Visit Provider Physician Assistant
DX: R10.30 Lower abdominal pain, unspecified (principal); R35.0 Frequency of micturition
CPT/HCPCS: 80053; 83690; 82150; 85025; 87086

== ENCOUNTER 2024-11-29 00:31 | Outpatient (CLI) | payer MEDICARE, SELFPAY ==
--- NOTE | 2024-11-29 | DI.CT_ITS ---
Exam(s) CT ABDOMEN PELVIS W EXAM: CT ABDOMEN PELVIS W CLINICAL HISTORY: LOW ABD PAIN,R10.30. TECHNIQUE: Imaging Protocol: Axial computed tomography images with coronal and sagittal reformatted images were created and reviewed CONTRAST MATERIAL: Intravenous: Omnipaque-350 75cc Oral: Yes. Oral contrast was also administered for bowel opacification. The oral contrast has reach ed the level the rectum by the time of image acquisition. COMPARISON: No exams were available for comparison FINDINGS: VISUALIZED LUNG BASES: Benign-appearing increased markings are noted in the left lower lobe posterior basal segment. No pleural effusions.. ABDOMEN: There is no ascites. LIVER: There are no focal hepatic lesions evident. No dilated intrahepatic ducts. GALLBLADDER/BILIARY: No obvious gallbladder pathology. CBD is not dilated. PANCREAS: No evidence of pancreatic mass nor dilatation of the pancreatic duct. SPLEEN: Spleen size is upper normal.. No obvious intrasplenic lesions. Splenic and portal veins are patent. ADRENALS: There are no significant adrenal masses. KIDNEYS:No cysts evident. No solid renal masses. No calculi nor hydronephrosis.. ABDOMINAL AORTA: There is a mild fusiform infrarenal abdominal aortic aneurysm which exhibits maximum diameter of 2.3 cm. Diameter of the abdominal aorta above this level is 1.6 cm. There is no aneury smal dilatation of the iliac arteries. LYMPH NODES:There is no retroperitoneal nor paraaortic adenopathy. ABDOMINAL WALL: There is a fat only containing left inguinal hernia. GI: There is no evidence of bowel obstruction, free air, nor abscess. PELVIS: GI: No evidence of appendicitis.There are few diverticuli in the upper sigmoid but no evidence of obv ious acute diverticulitis. LYMPH NODES: There is no intrapelvic nor inguinal adenopathy. REPRODUCTIVE: Prostate gland is enlarged, measuring 5.6 cm wide. Prostate gland is also mildly lobul ated and indents the bladder base. There is no obturator adenopathy. Seminal vesicles appear unrema rkable. URINARY BLADDER: There is mild uniform thickening of the urinary bladder wall but this may be related to under distension. OSSEOUS: No fractures and no significant osseous lesions. Multilevel advanced disc space narrowing in the mid-lower lumbar spine. No listhesis. IMPRESSION: 1. There is a focal mild fusiform aneurysm of the distal abdominal aorta. Although the maximum diame ter at this level is 2.3 cm, the aorta above this level measures 1.6 cm and therefore this is an aneu rysm. There is no aneurysmal dilatation of the iliac arteries. 2. Enlarged prostate gland which is also slightly lobulated and indents the urinary bladder base. Ur inary bladder wall is uniformly thickened although this may be in part due to the fact that the bladd er is relatively empty. 3. There are few diverticuli in the upper sigmoid but no evidence of obvious acute diverticulitis. 4. There is a fat only containing left inguinal hernia. RADIATION DOSE DELIVERED: 498.78mGy.cm Total DLP DATA REPOSITORY: All CT scans at this facility are submitted to the National Radiology Data Registry (NRDR) Dose Index Registry (DIR) with the [employer] (ACR). RADIATION OPTIMIZATION: All CT scans at this facility use at least one of these dose optimization te chniques: automated exposure control; mA and/or kV adjustment per patient size (includes targeted exa ms where dose is matched to clinical indication); or iterative reconstruction.
--- OUTSIDE RECORDS SUMMARY | 2024-11-29 00:32 | XMS_ITS | Encounter Summary ---
Author Organization [facility] Address [address] [place] [address] Care Team Providers Care Assurance Specialist Name Role Phone Sangita Nolasco MD Primary Care Provider +1 -[phone] Reason for Visit * Reason Comments Follow-up Pain Score: 3-6, Rad iates: up arm, Duration: 1 yr Encounter Details Date Type Department Care Team (Late st Contact Info) Description 11/26/2021 11:00 EST Office Visit [facility] Orthopedic Surgery - [facility] [address] [place] [address] Murtaza Liang MD [address] [place] [address] Right carpal tunnel syndrome (Primary [...] syndrome documented in this encounter Care Teams Assurance Specialist Relationship Specialty Start Date End Date Sangita Nolasco MD PCP - General 06/24/21 documented as of this encounter
--- OUTSIDE RECORDS SUMMARY | 2024-11-29 00:32 | XMS_ITS | Encounter Summary ---
Author Organization [facility] Address [address] [place] [address] Care Team Providers Care Line Tender Flakeboard Name Role Phone Sangita Nolasco MD Primary Care Provider +1 -[phone] Reason for Referral * Office Procedure (Routine/Next Available) - Specialty Report Received Specialty Diagnoses / Procedures Referred By Contact Referred To Contact Physical Medicine and Rehab Diagnoses Right carpal tunnel syndrome Left carpal tunnel syndrome Procedures EMG/NERVE CONDUCTION STUDY Murtaza Liang MD Phone: tel: fax: [facility] Physical Medicine & Rehabilitation - [address] [place] [address] Phone: tel: fax: Referral ID Status Reason Start Date Expiration Date V isits Requested Visits Authorized [id number] Specialty Report Received 10/29/2021 1 1 Reason [...] Info) Description 10/29/2021 16:00 EST Office Visit [facility] Orthopedic Surgery - [address] [place] [address] Murtaza Liang MD [address] [place] [address] Right carpal tunnel syndrome (Primary [...] 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 He finds that he [...] only block results from tests performed at [facility] and does not apply for Miscellaneous [...] reflect changes made after this encounter. multivit-min/iron/ folic/pzd644 (HAIR, SKIN AND NAILS ADVANCED ORAL) Take by mouth. added in this encounter Care Teams Line Tender Flakeboard Relationship Specialty Start Date End Date Sangita Nolasco MD PCP - General 06/24/21 documented as of this encounter
--- OUTSIDE RECORDS SUMMARY | 2024-11-29 00:32 | XMS_ITS | Clinical Summary ---
Author Organization [facility] Address [address] [place] [address] Care Team Providers Care Sql Server Developer Name Role Phone Sangita Nolasco MD Primary Care Provider +1 -[phone] Allergies Active Allergy Reactions Criticality Noted Date Comments Coconut Swelling of throat 08/18/2013 Atorvastatin Muscle Aches 01/02/2014 Muscle weakness Medications aspirin 81 mg EC tablet Take 81 mg by mouth at bedtime. Reported on 10/25/2016 Active Multivitamins with Minerals Tab Take 1 Tab by mouth daily. Reported on 10/25/2016 Active APPLE CIDER VINEGAR ORAL Take by mouth daily. Active multivit-min/ir on/folic/rqw961 (HAIR, SKIN AND NAILS ADVANCED ORAL) Take by mouth. Active Active Problems Problem Noted Date Diagnosed Date Right carpal tunnel syndrome 12/22/2021 Overview (12/22/2021): Added automatically from request for surgery [id number] Left carpal tunnel syndrome 01/10/2021 Venous insufficiency, [...] 2024, 12/11/2020 Medical Devices Implanted Type Area Insole And Heel Stiffener Device Identifier Shelf Expiration Date Model / Serial / Lot [place] Suture 4.75mm Healicoil [id number] - [id number] Implanted:Qt y: 1 on 04/21/2020 by Agusto Howell III, MD at [facility] [place] Left: Shoulder [employer] 10/15/2023 [id number] / [id number] / [place] Suture 4.75x19.1mm Swivelock [id number] - [id number] Implanted:Qt y: 1 on 04/21/2020 by Agusto Howell III, MD at [facility] [place] Left: Shoulder [employer] [id number] 10/15/2023 [id number] / / [id number] Insurance [employer] [place] [employer] [facility] [address] Advance Directives For more information, please contact: [phone] * Full Code (Latest Code Status on [...] Comments 01/18/2013 8:18 01/21/2013 21:49 Care Teams Sql Server Developer Relationship Specialty Start Date End Date Sangita Nolasco MD PCP - General 06/24/21
--- OUTSIDE RECORDS SUMMARY | 2024-11-29 00:32 | XMS_ITS | Encounter Summary ---
Author Organization [facility] Address [address] [place] [address] Care Team Providers Care Hand Tube Bender Name Role Phone Sangita Nolasco MD Primary Care Provider +1 -[phone] Reason for Visit * Auth/Cert Specialty Diagnoses / Procedures Referred By Nelia sanford Referred To Contact Diagnoses Left carpal tunnel syndrome Procedures NC WRIST ARTHROSCOP,RELEASE XVERS LIG Murtaza Liang MD [address] [place] [address] Phone: tel: fax: Referral ID Status Reason Start Date Expiration Date Visits Re quested Visits Authorized [id number] 01/15/2021 1 1 Encounter Details Date Type Department Care Team (Late st Contact Info) Description 06/24/2021 12:05 EDT - 06/24/2021 13:00 EDT Surgery [facility] OR [address] [place], [place] [address] Murtaza Liang MD [address] [place] [address] Left wrist endoscopic carpal tunnel release [[id number] (CPT??)] Surgery Details Date/Time Status Location OR Service Patient Class Case Cl ass Case Type Trauma Case? 06/24/2021 1205 Posted [facility] OR [address] Outpatient Surgery H - Elective Panel [...] EDT Endoscopic Carpal Tunnel Release Orthopedics - [facility] - Dr. Liang ?? Wound and [...] your appointment please call the office at [phone]. ?? Concerns: Call our office immediately if [...] Liang MD 06/24/2021 12:11 Source Note - PARTY PLAN SALES AGENT, EDWARDO 2 - 06/22/2021 15:47 EDT documented [...] room. After a procedural timeout was performed, [place] block anesthesia was placed by the anesthesiology [...] access to the carpal tunnel. A synovial Alpine was used to scrape the undersurface of [...] Preprocedure 1141 (New Bag - Prov ider: Cehri Edwards, KIRSTY)1245 (Continued by Anesthesia - Provider: Murtaza Liang [...] 06/24/2021 documented in this encounter Care Teams Hand Tube Bender Relationship Specialty Start Date End Date Sangita Nolasco MD PCP - General 06/24/21 documented as of this encounter
--- OUTSIDE RECORDS SUMMARY | 2024-11-29 00:32 | XMS_ITS | Encounter Summary ---
Author Organization [facility] Address [address] [place] [address] Care Team Providers Care Field Sales Engineer Name Role Phone Sangita Nolasco MD Primary Care Provider +1 -[phone] Reason for Visit * Reason Comments Follow-up s/p Left carpal tunn el release 06/24/2021 Encounter Details Date Type Department Care Team (Latest Contact Info) Description 07/01/2021 11:30 EDT Post-op Visit [facility] Orthopedic Surgery - [facility] [place] [address] [place] [address] Child, Hannha Bowser PA-C [address] [place] [address] Aftercare following surgery of the [...] status documented in this encounter Care Teams Field Sales Engineer Relationship Specialty Start Date End Date Sangita Nolasco MD PCP - General 06/24/21 documented as of this encounter
--- OUTSIDE RECORDS SUMMARY | 2024-11-29 00:32 | XMS_ITS | Encounter Summary ---
Author Organization [facility] Address [address] [place] [address] Care Team Providers Care Instructor Modeling Name Role Phone Sangita Nolasco MD Primary Care Provider +1 -[phone] Reason for Visit * Reason Comments Pain * Office Procedure (Routine/Next Available) - Specialty Report Received Specialty Diagnoses / Procedures Referred By Contact Referred To Contact Physical Medicine and Rehab Diagnoses Right carpal tunnel syndrome Left carpal tunnel syndrome Procedures EMG/NERVE CONDUCTION STUDY Murtaza Liang MD Phone: tel: fax: [facility] Physical Medicine & Rehabilitation - [address] [place] [address] Phone: tel: fax: Referral ID Status Reason Start Date Expiration Date V isits Requested Visits Authorized [id number] Specialty Report Received 10/29/2021 1 1 Encounter Details Date Type Department Care Team (Late st Contact Info) Description 11/18/2021 10:00 EST Procedure visit [facility] Spine Program - [address] [place] [address] Sun Hernandez MD [address] [place] [address] [place] [address] Carpal tunnel syndrome of right [...] Reported on 10/25/2016, Disp: , Rfl: ??? multivit-min/iron/folic/rqc972 (HAIR, SKIN AND NAILS ADVANCED ORAL), Take [...] Department Center 11/26/2021 11:[address] [facility] None Sun Hernandez MD [place] [employer] and [employer] Portions of this document have been prepared with speech recognition software or keyboard lead data entry operator techniques. Minor irregularities or keyboarding misprints may [...] syndrome documented in this encounter Care Teams Instructor Modeling Relationship Specialty Start Date End Date Sangita Nolasco MD PCP - General 06/24/21 documented as of this encounter
--- OUTSIDE RECORDS SUMMARY | 2024-11-29 00:32 | XMS_ITS | Encounter Summary ---
Author Organization [facility] Address [address] [place] [address] Care Team Providers Care Sous Chef Kitchen Manager Name Role Phone Sangita Nolasco MD Primary Care Provider +1 -[phone] Reason for Visit * Reason Onset Date Comments Paperwork request 08/20/2021 Encounter Details Date Type Department Care Team (Late st Contact Info) Description 08/20/2021 Telephone [facility] Orthopedic Surgery - [facility] [address] [place] [address] Murtaza Liang MD [address] [place] [address] Paperwork request Social History Tobacco [...] on 08/30/21. Faxed to Scott Michele at [phone] on 08/30/21 Scanned into patients chart on 08/30/21 * Telephone Encounter - Melina Ramos - 08/26/2021 1432 EST Received Disability paperwork from [facility]. Received 08/26/21. Prefilled out, labeled appropriately [...] hands is impossible at this point. 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 Thank you, Ahmet documented in this encounter Plan of Treatment Not on file documented as of this encounter Visit Diagnoses Not on filedocumented in this encounter Care Teams Sous Chef Kitchen Manager Relationship Specialty Start Date End Date Sangita Nolasco MD PCP - General 06/24/21 documented as of this encounter
--- OUTSIDE RECORDS SUMMARY | 2024-11-29 00:32 | XMS_ITS | Encounter Summary ---
Author Organization [facility] Address [address] [place] [address] Care Team Providers Care Petroleum Engineering Teacher Name Role Phone Sangita Nolasco MD Primary Care Provider +1 -[phone] Encounter Details Date Type Department Care Team (Late st Contact Info) Description 11/14/2023 Lab Requisition [facility] Pathology & Laboratory Medicine - [facility] [address] [place] [address] Outr Resulting Lab, Provider Social History Tobacco [...] PSA 4.1 <=6.5 ng/mL 11/14/2023 18:01 EST [facility] Blood VENOUS BLOOD / Unknown 11/13/2023 10:45 EST 11/14/2023 16:58 EST Narrative [facility] - 11/14/2023 18:01 EST NOTE: Serum PSA concentration should not be interpreted as absolute evidence for the presence or absence of malignant disease. Assayed on [employer] XPT using chemiluminescent technology.??Values obtained by using different assay methods cannot be used interchangeably. us Provider Outr Resulting Lab CHEMISTRY & BLOOD GA S ORDERABLES Final Result [facility] [address] [place] [address] documented in this encounter Visit Diagnoses Not on filedocumented in this encounter Care Teams Petroleum Engineering Teacher Relationship Specialty Start Date End Date Sangita Nolasco MD PCP - General 06/24/21 documented as of this encounter
--- OUTSIDE RECORDS SUMMARY | 2024-11-29 00:32 | XMS_ITS | Encounter Summary ---
Author Organization [facility] Address [address] [place] [address] Care Team Providers Care Pool Nurse Name Role Phone Sangita Nolasco MD Primary Care Provider +1 -[phone] Reason for Visit * Reason Onset Date Comments Letter for School/Work 11/04/2021 Encounter Details Date Type Department Care Team (Late st Contact Info) Description 11/04/2021 Telephone [facility] Orthopedic Surgery - [facility] [address] [place] [address] Murtaza Liang MD [address] [place] [address] Letter for School/Work Social History [...] per his requested to his fax at [phone] * Telephone Encounter - Fanny Castaneda - [...] on filedocumented in this encounter Care Teams Pool Nurse Relationship Specialty Start Date End Date Sangita Nolasco MD PCP - General 06/24/21 documented as of this encounter
--- OUTSIDE RECORDS SUMMARY | 2024-11-29 00:32 | XMS_ITS | Encounter Summary ---
Author Organization [facility] Address [address] [place] [address] Care Team Providers Care Access Coordinator Name Role Phone Sangita Nolasco MD Primary Care Provider +1 -[phone] Encounter Details Date Type Department Care Team (Late st Contact Info) Description 09/10/2022 Lab Requisition [facility] Pathology & Laboratory Medicine - [facility] [address] [place] [address] Outr Resulting Lab, Provider Social History Tobacco [...] PSA 3.7 <=6.5 ng/mL 09/12/2022 9:04 EST [facility] Blood VENOUS BLOOD / Unknown 09/09/2022 8:45 EST 09/11/2022 16:44 EST Narrative [facility] - 09/12/2022 9:04 EST NOTE: Serum PSA concentration should not be interpreted as absolute evidence for the presence or absence of malignant disease. Assayed on [employer] XPT using chemiluminescent technology.??Values obtained by using different assay methods cannot be used interchangeably. us Provider Outr Resulting Lab CHEMISTRY & BLOOD GA S ORDERABLES Final Result [facility] [address] [place] [address] documented in this encounter Visit Diagnoses Not on filedocumented in this encounter Care Teams Access Coordinator Relationship Specialty Start Date End Date Sangita Nolasco MD PCP - General 06/24/21 documented as of this encounter
--- OUTSIDE RECORDS SUMMARY | 2024-11-29 00:32 | XMS_ITS | Encounter Summary ---
Author Organization [facility] Address [address] [place] [address] Care Team Providers Care Flat Screen Worker Name Role Phone Sangita Nolasco MD Primary Care Provider +1 -[phone] Reason for Visit * Reason Onset Date Comments Letter for School/Work 10/22/2021 asking fo r an extension on his work status report Encounter Details Date Type Department Care Team (Late st Contact Info) Description 10/22/2021 Telephone [facility] [address] [place] [address] Murtaza Liang MD [address] [place] [address] Letter for School/Work (asking for [...] an evaluation yesterday w/ a physician in [place], is having a lotof pain in left wrist due to the manipulation is due to start work at 10/20, can this be extended. Would like faxed to him directly @ [phone] documented in this encounter Plan of Treatment Not on file documented as of this encounter Visit Diagnoses Not on filedocumented in this encounter Care Teams Flat Screen Worker Relationship Specialty Start Date End Date Sangita Nolasco MD PCP - General 06/24/21 documented as of this encounter
--- OUTSIDE RECORDS SUMMARY | 2024-11-29 00:32 | XMS_ITS | Encounter Summary ---
Author Organization [facility] Address [address] [place] [address] Care Team Providers Care Hat Marker Name Role Phone Sangita Nolasco MD Primary Care Provider +1 -[phone] Reason for Visit * Reason Onset Date Comments Paperwork request 09/24/2021 Scott Short Term Continuance of disability form Encounter Details Date Type Department Care Team (Late st Contact Info) Description 09/24/[address] [facility] Orthopedic Surgery - [facility] [address] [place] [address] Murtaza Liang MD [address] [place] [address] Paperwork request (Scott Short Term [...] on 10/05/21. Faxed to Scott Michele at [phone] on 10/05/21 Scanned into patients chart on [...] on filedocumented in this encounter Care Teams Hat Marker Relationship Specialty Start Date End Date Sangita Nolasco MD PCP - General 06/24/21 documented as of this encounter
--- OUTSIDE RECORDS SUMMARY | 2024-11-29 00:32 | XMS_ITS | Referral Summary ---
Author Organization [facility] Address [address] [place] [address] Care Team Providers Care Dental Instrument Maker Name Role Phone Sangita Nolasco MD Primary Care Provider +1 -[phone] Allergies Active Allergy Reactions Criticality Noted Date Comments Coconut Swelling of throat 08/18/2013 Atorvastatin Muscle Aches 01/02/2014 Muscle weakness Medications aspirin 81 mg EC tablet Take 81 mg by mouth at bedtime. Reported on 10/25/2016 Active Multivitamins with Minerals Tab Take 1 Tab by mouth daily. Reported on 10/25/2016 Active APPLE CIDER VINEGAR ORAL Take by mouth daily. Active multivit-min/ir on/folic/pyh910 (HAIR, SKIN AND NAILS ADVANCED ORAL) Take by mouth. Active Active Problems Problem Noted Date Diagnosed Date Right carpal tunnel syndrome 12/22/2021 Overview (12/22/2021): Added automatically from request for surgery [id number] Left carpal tunnel syndrome 01/10/2021 Venous insufficiency, [...] on file Medical Devices Implanted Type Area Arm Rest Builder Device Identifier Shelf Expiration Date Model / Serial / Lot [place] Suture 4.75mm Healicoil [id number] - [id number] Implanted:Qt y: 1 on 04/21/2020 by Agusto Howell III, MD at [facility] [place] Left: Shoulder [employer] 10/15/2023 [id number] / [place] Suture 4.75x19.1mm Swivelock [id number] - [id number] Implanted:Qt y: 1 on 04/21/2020 by Agusto Howell III, MD at [facility] [place] Left: Shoulder [employer] [id number] 10/15/2023 [id number] -[id number] / / [id number] Insurance [employer] [place] [employer] [place] Advance Directives For more information, please contact: [phone] * Full Code (Latest Code Status on [...] Comments 01/18/2013 8:18 01/21/2013 21:49 Care Teams Dental Instrument Maker Relationship Specialty Start Date End Date Sangita Nolasco MD PCP - General 06/24/21
--- OUTSIDE RECORDS SUMMARY | 2024-11-29 00:32 | XMS_ITS | Encounter Summary ---
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
--- OUTSIDE RECORDS SUMMARY | 2024-11-29 00:33 | XMS_ITS | Encounter Summary ---
Author Organization [facility] Address [address] [place] [address] Care Team Providers Care Cyber Security Analyst Name Role Phone Lasha Angelo MD Primary Care Provider [phone] Sangita Nolasco MD Primary Care Provider [phone] Encounter Details Date Type Department Care Team (Latest Contact Info) Description 04/14/2020 Lab Requisition [facility] Pathology & Laboratory Medicine - [facility] [address] [place] [address] Sun Bess, SEAN [address] [place] [address] Pain in left shoulder; Encounter for other [...] 3.82(L) 4.00 - 10.40 K/cmm 04/14/2020 20:43 [facility] RBC 4.79 4.36 - 5.78 M/cmm 04/14/2020 20:43 [facility] Hemoglobin 14.8 13.8 - 17.3 gm/dL 04/14/2020 20:43 [facility] HCT 44.4 39.5 - 50.2 % 04/14/2020 20:43 [facility] MCV 93 81 - 95 fl 04/14/2020 20:43 [facility] MCH 30.9 27.6 - 33.0 pg 04/14/2020 20:43 [facility] MCHC 33.3 32.8 - 36.4 gm/dL 04/14/2020 20:43 [facility] RDW-CV 13.4 <14.2 % 04/14/2020 20:43 [facility] RDW-SD 45.5 <46.0 fl 04/14/2020 20:43 [facility] PLT 204 141 - 377 K/cmm 04/14/2020 20:43 [facility] MPV 9.2(L) 9.5 - 12.7 fl 04/14/2020 20:43 [facility] % Neutrophils 62.8 % 04/14/2020 20:43 [facility] % Lymphocytes 25.4 % 04/14/2020 20:43 [facility] % Monocytes 6.8 % 04/14/2020 20:43 [facility] % Eosinophils 3.1 % 04/14/2020 20:43 [facility] % Basophils 1.6 % 04/14/2020 20:43 [facility] % Immature Grans 0.3 % 04/14/20 20 20:43 [facility] Absolute Neutrophils 2.40 2.20 - 8.85 K/cmm 04/14/2020 20:43 [facility] Absolute Lymphocytes 0.97(L) 1.09 - 3.30 K/cmm 04/14/2020 20:43 [facility] Absolute Monocytes 0.26 0.10 - 0.80 K/cmm 04/14/2020 20:43 [facility] Absolute Eosinophils 0.12 0.03 - 0.61 K/cmm 04/14/2020 20:43 [facility] ABS Basophils 0.06 0.01 - 0.11 K/cmm 04/14/2020 20:43 [facility] Absolute Immature Grans 0.01 0.00 - 0.06 K/cmm 04/14/2020 20:43 [facility] Type of Differential: Auto 04/14/2020 20:43 [facility] Blood VENOUS BLOOD / Unknown 04/14/2020 11:06 EDT 04/14/2020 20:23 EDT us Sun Bess MANUFACTURING AREA MANAGER PACKAGES & DNA PROBE ORDERABLE S Final Result [facility] [address] [place] [address] * (ABNORMAL) BASIC METABOLIC PANEL (BMP) (04/14/2020 11:06 EDT) Sodium 134(L) 136 - 145 mEq/L 04/14/2020 20:43 [facility] Potassium 4.6 3.5 - 5.0 mEq/L 04/14/2020 20:43 [facility] Chloride 99 96 - 110 mEq/L 04/14/2020 20:43 [facility] CO2 Total 29 22 - 32 mEq/L 04/14/2020 20:43 [facility] Glucose 109(H) 70 - 100 mg/dL 04/14/2020 20:43 [facility] Calcium 9.5 8.5 - 10.5 mg/dL 04/14/2020 20:43 [facility] Calculated Calcium 9.3 8.5 - 10.5 mg/dL 04/14/2020 20:43 [facility] BUN 12 10 - 26 mg/dL 04/14/2020 20:43 [facility] Creatinine 0.76 0.66 - 1.25 mg/dL 04/14/2020 20:43 [facility] eGFR 91 >60 mL/min/1.7 3m2 04/14/2020 20:43 [facility] Comment:eGFR calculated lina hawley CKD-EPI equation for non- Americans. Multiply eGFR by 1.16 for patients. Blood VENOUS BLOOD / Unknown 04/14/2020 11:06 EDT 04/14/2020 20:23 EDT us Sun Bess NP CHEMISTRY & BLOOD GAS ORDERABL ES Final Result [facility] [address] [place] [address] * PROTIME (04/14/2020 11:06 EDT) I.N.R. 1.0 0.9 - 1.1 Ratio 04/14/2020 20:51 [facility] Pro Time 11.6 10.3 - 13.4 secs 04/14/2020 20:51 EDT [facility] Blood VENOUS BLOOD / Unknown 04/14/2020 11:06 EDT 04/14/2020 20:15 EDT Narrative [facility] - 04/14/2020 20:51 EDT Moderate Intensity Coumadin INR = 2.0-3.0 Adjustments in anticoagulant therapy dose should be based on the INR and NOT on the Protime. Sun Bess MANUFACTURING AREA MANAGER HEMATOLOGY & PF4 ORDERABLES Fi nal Result [facility] [address] [place] [address] documented in this encounter Visit Diagnoses Diagnosis Pain in left shoulder Pain in joint, shoulder region Encounter for other preprocedural examination documented in this encounter Additional Health Concerns Infection Onset Date Last Indicated Resolved Time R/O COVID-19 04/15/2020 04/15/2020 04/20/2020 22:1 6 EDT documented as of this encounter Care Teams Cyber Security Analyst Relationship Specialty Start Date End Date Lasha Angelo MD PCP - General Family Medicine - Primary Care 01/09/20 06/23/21 Sangita Nolasco MD PCP - General 06/24/21 documented as of this encounter
--- OUTSIDE RECORDS SUMMARY | 2024-11-29 00:33 | XMS_ITS | Encounter Summary ---
Author Organization [facility] Address [address] [place] [address] Care Team Providers Care Color Dipper Name Role Phone Lasha Angelo MD Primary Care Provider [phone] Reason for Visit * Reason Onset Date Comments Letter for School/Work 08/03/2020 Encounter Details Date Type Department Care Team (Late st Contact Info) Description 08/03/2020 Telephone [facility] Orthopedic Surgery - [address] [place] [address] Agusto Howell III, MD [address] [place] [address] Letter for School/Work Social History [...] Telephone Encounter - Fanny Castaneda - 08/03/2020 9115 EDT Rayo phoned had to r/s his appt w/ JFL as [place] had gone [place] of [place], pt now scheduled to be seen on 08/17, Rayo is asking for a letter from Dr Howell stating when he can return to work for light duty. Please call pt when ready or w/ questions. # [phone] documented in this encounter Plan of Treatment Not on file documented as of this encounter Visit Diagnoses Not on filedocumented in this encounter Care Teams Color Dipper Relationship Specialty Start Date End Date Lasha Angelo MD PCP - General Family Medicine - Primary Care 01/09/20 06/23/21 documented as of this encounter
--- OUTSIDE RECORDS SUMMARY | 2024-11-29 00:33 | XMS_ITS | Encounter Summary ---
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] Procedures IA SHLDR ARTHROSCOP,LYSE ADHESNS IA SHLDR ARTHROSCOP,SURG,W/ROTAT CUFF REPR Agusto Howell III, MD [address] [place] [address] Phone: tel: fax: Referral ID Status Reason Start Date Expiration Date Visits Re quested Visits Authorized [id number] 02/27/2020 1 1 Encounter Details Date Type Department Care Team (Late st Contact Info) Description 04/21/2020 11:54 EDT Anesthesia Event [facility] Operating Room [address] [place] [address] Roddy Obrien MD [address] [facility], [address] [place] [address] Mikael Nolasco MD [address] [place] [address] Anesthesia Record Procedure Summary Procedure [...] Notes * Anesthesia Postprocedure Evaluation - Yolis Casas APRN - 04/21/2020 1600 EDT Patient: Barrett Salvador Vital signs were reviewed with the recovery nurse. [facility] Vitals Value Taken Time BP 126/67 04/21/2020 [...] Staff Patient location during procedure: OR Performed: resident/SAFETY DIRECTOR/AA Indications and Patient Condition Indications for airway [...] 04/21/2020 11:15 Staffing Anesthesiologist: Roddy Obrien MD Resident/SAFETY DIRECTOR: Mikael Nolasco MD Performed: resident/SAFETY DIRECTOR/AA Preanesthetic Checklist Completed: patient identified, surgical consent, [...] EDT documented in this encounter Results * IA AN ELECTIVE ENDOTRACHEAL AIRWAY (04/21/2020 12:44 EDT) Narrative Yolis Casas APRN - 04/21/2020 12:44 EDT Yolis Casas APRN ? 04/21/2020 12:49 Airway Date/Time: 04/21/2020 12:10 Urgency: elective Airway not difficult General Information and Staff Patient location during procedure: OR Performed: resident/SAFETY DIRECTOR/AA Indications and Patient Condition Indications for airway [...] 04/21/2020 11:15 Staffing Anesthesiologist: Roddy Obrien MD Resident/SAFETY DIRECTOR: Mikael Nolasco MD Performed: resident/RICHARD/VON Preanesthetic Checklist [...] 04/21/2020 documented in this encounter Care Teams Adult Services Librarian Relationship Specialty Start Date End Date Lasha Angelo MD PCP - General Family Medicine - Primary Care 01/09/20 06/23/21 documented as of this encounter
--- OUTSIDE RECORDS SUMMARY | 2024-11-29 00:33 | XMS_ITS | Encounter Summary ---
Author Organization [facility] Address [address] [place] [address] Care Team Providers Care Air Defense Control Officer Name Role Phone Sangita Nolasco MD Primary Care Provider [phone] Reason for Visit * Auth/Cert Specialty Diagnoses / Procedures Referred By Nelia sanford Referred To Contact Diagnoses Left carpal tunnel syndrome Procedures MT WRIST ARTHROSCOP,RELEASE XVERS LIG Murtaza Liang MD [address] [place] [address] Phone: tel: fax: Referral ID Status Reason Start Date Expiration Date Visits Re quested Visits Authorized [id number] 01/15/2021 1 1 Encounter Details Date Type Department Care Team (Late st Contact Info) Description 06/24/2021 12:45 EDT Anesthesia Event [facility] [place] [address] [place], [place] [id number] Deven Boone MD [address] [facility], [address] [place] [address] Anesthesia Record Procedure Summary Procedure Name Responsible [...] [facility]. Vitals Value Taken Time BP 117/90 06/24/21 1311 Temp 06/24/21 1315 Resp 18 06/24/21 1315 Pulse From Oximetry 64 BPM 06/24/21 1315 SpO2 91 % 06/24/21 1315 Vitals shown include unvalidated device data. Last Pain Score - Type of Anesthesia - [place] block Anesthesia Post Evaluation Level of consciousness: [...] Patient location during procedure: OR Staffing Performed: resident/BOILERMAKER SHIP/AA Preanesthetic Checklist Completed: patient identified, IV checked, site marked, risks and benefits discussed, surgical consent, monitors and equipment checked, pre-op evaluation and timeout performed Peripheral Block Patient position: supine Patient monitoring: BP cuff, heart rate, engine monitor and continuous pulse ox Block type: [...] Left wrist endoscopic carpal tunnel release (Frenzen: [id number]) Other history: ??? Sleep apnea (no CPAP), former smoker (quit 1967), HTN, SOB / chest heaviness / abnormal stress test (2012 - / [facility] w/ mild luminal irregularities / [...] above normal for age. Cardiac Cath - [facility] 2012 --- SUMMARY OF RESULTS [...] 2 Anesthesia Type - regional - via [place] block With sedation prn - via with [...] not instruct patient regarding COVID testing, let [facility] coordinate this -Communicate status on yellow form for DOS If patient develops any of these symptoms between now and their surgery date instruct them to call us back at [phone] to report symptoms Visitor Policy: - Inpatients [...] Patient location during procedure: OR Staffing Performed: resident/BOILERMAKER SHIP/AA Preanesthetic Checklist Completed: patient identified, IV checked, site marked, risks and benefits discussed, surgical consent, monitors and equipment checked, pre-op evaluation and timeout performed Peripheral Block Patient position: supine Patient monitoring: BP cuff, heart rate, engine monitor and continuous pulse ox Block type: [place] block Reason for block: surgical anesthesia Deven [...] 06/24/2021 documented in this encounter Care Teams Air Defense Control Officer Relationship Specialty Start Date End Date Sangita Nolasco MD PCP - General 06/24/21 documented as of this encounter
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
--- OUTSIDE RECORDS SUMMARY | 2024-11-29 00:33 | XMS_ITS | Encounter Summary ---
Author Organization [facility] Address [address] [place] [address] Care Team Providers Care Top Taper Machine Name Role Phone Lasha Angelo MD Primary Care Provider [phone] Encounter Details Date Type Department Care Team (Late st Contact Info) Description 12/31/2020 13:40 EDT Immunization [facility] [address] [place] [address] Social History Tobacco Use Types Packs/Day Years [...] 12/31/2020 documented in this encounter Care Teams Top Taper Machine Relationship Specialty Start Date End Date Lasha Angelo MD PCP - General Family Medicine - Primary Care 01/09/20 06/23/21 documented as of this encounter
--- OUTSIDE RECORDS SUMMARY | 2024-11-29 00:33 | XMS_ITS | Encounter Summary ---
Author Organization [facility] Address [address] [place] [address] Care Team Providers Care Ux Ui Designer Name Role Phone Lasha Angelo MD Primary Care Provider [phone] Reason for Visit * Reason Comments Varicose Veins * Consult (Routine) - Closed Specialty Diagnoses / Procedures Referred By Nelia sanford Referred To Contact Vascular Surgery Diagnoses Varicose veins of right lower extremity with inflammation Lasha Angelo MD Phone: tel: fax: Vascular Surgery and Endovascular Therapy - [facility] [address] [place] [address] Phone: tel: fax: Referral ID Status Reason Start Date Expiration Date Visits Re quested Visits Authorized [id number] Closed 1 1 Encounter Details Date Type Department Care Team (Latest Contact Info) Description 09/04/2020 13:00 EST Initial consult [facility] Plastic, Reconstructive & Cosmetic Surgery - [address], [address] [place] [address] nAthony Farr MD Venous insufficiency of lower extremity, [...] Anthony Farr MD - 09/04/2020 1300 EST [facility] Vascular Surgery H & P Consultation [...] Primary documented in this encounter Care Teams Ux Ui Designer Relationship Specialty Start Date End Date Lasha Angelo MD PCP - General Family Medicine - Primary Care 01/09/20 06/23/21 documented as of this encounter
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
--- OUTSIDE RECORDS SUMMARY | 2024-11-29 00:33 | XMS_ITS | Encounter Summary ---
Author Organization [facility] Address [address] [place] [address] Care Team Providers Care Shaving Machine Operator Name Role Phone Lasha Angelo MD Primary Care Provider [phone] Reason for Visit * Reason Comments Shoulder Pain left Pain Encounter Details Date Type Department Care Team (Latest Contact Info) Description 02/27/2020 10:30 EDT Office Visit [facility] Orthopedic Surgery - [facility] [address] [place] [address] Agusto Howell III, MD [address] [place] [address] Tear of left supraspinatus tendon [...] and placed in this record by the [employer]. REVIEW OF SYSTEMS: Yes No Yes No [...] impingement test, + Neer impingement test, - [place] active compression test, - external rotation lag [...] biceps long head is absent from the jxuxn-ob-rfrn. Assessment: Encounter Diagnoses Name Primary? Tear of [...] region documented in this encounter Care Teams Shaving Machine Operator Relationship Specialty Start Date End Date Lasha Angelo MD PCP - General Family Medicine - Primary Care 01/09/20 06/23/21 documented as of this encounter
--- OUTSIDE RECORDS SUMMARY | 2024-11-29 00:33 | XMS_ITS | Encounter Summary ---
Author Organization [facility] Address [address] [place] [address] Care Team Providers Care Glue Reel Operator Name Role Phone Lasha Angelo MD Primary Care Provider [phone] Reason for Visit * Reason Onset Date Comments Paperwork request 03/03/2020 Encounter Details Date Type Department Care Team (Late st Contact Info) Description 03/03/2020 Telephone [facility] Orthopedic Surgery - [address] [place], [place] [id number] Agusto Howell III, MD [address] [place] [address] Paperwork request Social History Tobacco [...] on filedocumented in this encounter Care Teams Glue Reel Operator Relationship Specialty Start Date End Date Lasha Angelo MD PCP - General Family Medicine - Primary Care 01/09/20 06/23/21 documented as of this encounter
--- OUTSIDE RECORDS SUMMARY | 2024-11-29 00:33 | XMS_ITS | Encounter Summary ---
Author Organization [facility] Address [address] [place] [address] Care Team Providers Care Suppression Crew Leader Name Role Phone Lasha Angelo MD Primary Care Provider [phone] Encounter Details Date Type Department Care Team (Late st Contact Info) Description 04/30/2020 Orders Only [facility] Orthopedic Surgery - [facility] [address] [place] [address] Murtaza Negro, [address] [place] [address] Secondary adhesive capsulitis of left [...] 05/01/2020 documented in this encounter Care Teams Suppression Crew Leader Relationship Specialty Start Date End Date Lasha Angelo MD PCP - General Family Medicine - Primary Care 01/09/20 06/23/21 documented as of this encounter
--- OUTSIDE RECORDS SUMMARY | 2024-11-29 00:33 | XMS_ITS | Encounter Summary ---
Author Organization [facility] Address [address] [place] [address] Care Team Providers Care Park Manager Name Role Phone Lasha Angelo MD Primary Care Provider [phone] Reason for Referral * Office Procedure (Routine/Next Available) - Specialty Report Received Specialty Diagnoses / Procedures Referred By Contact Referred To Contact Physical Medicine and Rehab Diagnoses Carpal tunnel syndrome of left wrist Procedures EMG/NERVE CONDUCTION STUDY Agusto Howell III, MD Phone: tel: fax: [facility] Physical Medicine & Rehabilitation - [address] [place] [address] Phone: tel: fax: Referral ID Status Reason Start Date Expiration Date V isits Requested Visits Authorized [id number] Specialty Report Received 10/22/2020 1 1 Reason for Visit * Reason Comments Pain Encounter Details Date Type Department Care Team (Latest Contact Info) Description 10/22/2020 13:15 EST Office Visit [facility] Orthopedic Surgery - [address] [place] [address] Agusto Howell III, MD [address] [place] [address] Secondary adhesive capsulitis of left shoulder [...] documented as of this encounter Care Teams Park Manager Relationship Specialty Start Date End Date Lasha Angelo MD PCP - General Family Medicine - Primary Care 01/09/20 06/23/21 documented as of this encounter
--- OUTSIDE RECORDS SUMMARY | 2024-11-29 00:33 | XMS_ITS | Encounter Summary ---
Author Organization [facility] Address [address] [place] [address] Care Team Providers Care Cooler Conveyor Loader Name Role Phone Lasha Angelo MD Primary Care Provider [phone] Reason for Referral * PT/OT/ST (Routine/Next Available) - Closed Specialty Diagnoses / Procedures Referred By Nelia sanford Referred To Contact Diagnoses Secondary adhesive capsulitis of left shoulder Surgical aftercare, musculoskeletal system Agusto Howell III, MD Phone: tel: fax: Referral ID Status Reason Start Date Expiration Date V isits Requested Visits Authorized [id number] Closed Specialty Services Required 04/22/2020 1 1 [...] st Contact Info) Description 04/22/2020 Orders Only [facility] Orthopedic Surgery - [facility] [address] [place] [address] Agusto Howell III, MD [address] [place] [address] Secondary adhesive capsulitis of left [...] * Agusto Howell III, MD - 04/22/2020 5459 EDT Images from the original note were [...] NEC documented in this encounter Care Teams Cooler Conveyor Loader Relationship Specialty Start Date End Date Lasha Angelo MD PCP - General Family Medicine - Primary Care 01/09/20 06/23/21 documented as of this encounter
--- OUTSIDE RECORDS SUMMARY | 2024-11-29 00:33 | XMS_ITS | Encounter Summary ---
Author Organization [facility] Address [address] [place] [address] Care Team Providers Care Ammonium Hydroxide Operator Name Role Phone Lasha Angelo MD Primary Care Provider [phone] Reason for Visit * Reason Comments Post-OP Follow Up Encounter Details Date Type Department Care Team (Latest Contact Info) Description 04/30/2020 15:30 EDT Post-op Visit [facility] Orthopedic Surgery - [address] [facility] [place] [address] Murtaza Negro, PAAleshaC [facility] [place] [address] Secondary adhesive capsulitis of left [...] NEC documented in this encounter Care Teams Ammonium Hydroxide Operator Relationship Specialty Start Date End Date Lasha Angelo MD PCP - General Family Medicine - Primary Care 01/09/20 06/23/21 documented as of this encounter
--- OUTSIDE RECORDS SUMMARY | 2024-11-29 00:33 | XMS_ITS | Encounter Summary ---
Author Organization [facility] Address [address] [place] [address] Care Team Providers Care Development And Planning Engineer Name Role Phone Lasha Angelo MD Primary Care Provider [phone] Encounter Details Date Type Department Care Team (Late st Contact Info) Description 09/21/2020 Orders Only [facility] Orthopedic Surgery - [address] [place] [address] Agusto Howell III, MD [address] [place] [address] Social History Tobacco Use Types [...] on filedocumented in this encounter Care Teams Development And Planning Engineer Relationship Specialty Start Date End Date Lasha Angelo MD PCP - General Family Medicine - Primary Care 01/09/20 06/23/21 documented as of this encounter
--- OUTSIDE RECORDS SUMMARY | 2024-11-29 00:33 | XMS_ITS | Encounter Summary ---
Author Organization [facility] Address [address] [place] [address] Care Team Providers Care Semiconductor Lab Technician Name Role Phone Lasha Angelo MD Primary Care Provider [phone] Reason for Visit * Reason Comments Pain [...] Date Expiration Date Visits Requested Visits Authorized [id number] Order Cancelled Specialty Services Required 01/11/2021 1 1 Encounter Details Date Type Department Care Team (Late st Contact Info) Description 01/15/2021 11:30 EDT Office Visit [facility] Orthopedic Surgery - [address] [place] [address] Murtaza Liang MD [address] [place] [address] Left carpal tunnel syndrome (Primary [...] years/) HPI: The patient is a 75-year-old xhzzw-zhhy-joetplnn man who presents with pain in his [...] but the patient does have slightly diminished credit consultant strength. ASSESSMENT/PLAN: Encounter Diagnosis Name Primary? Left [...] 01/15/2021 documented in this encounter Care Teams Semiconductor Lab Technician Relationship Specialty Start Date End Date Lasha Angelo MD PCP - General Family Medicine - Primary Care 01/09/20 06/23/21 documented as of this encounter
--- OUTSIDE RECORDS SUMMARY | 2024-11-29 00:33 | XMS_ITS | Encounter Summary ---
Author Organization [facility] Address [address] [place] [address] Care Team Providers Care Curtain Framer Name Role Phone Sangita Nolasco MD Primary Care Provider [phone] Reason for Visit * Auth/Cert Specialty Diagnoses / Procedures Referred By Nelia sanford Referred To Contact Diagnoses Left carpal tunnel syndrome Procedures WA WRIST ARTHROSCOP,RELEASE XVERS LIG Murtaza Liang MD [address] [place] [address] Phone: tel: fax: Referral ID Status Reason Start Date Expiration Date Visits Re quested Visits Authorized [id number] 01/15/2021 1 1 Encounter Details Date Type Department Care Team (Latest Contact Info) Description 06/24/2021 9:51 EDT - 06/24/2021 13:36 EDT Hospital Encounter [facility] [place] [address] [place], [place] [address] Murtaza Liang MD [address] [place] [address] Discharge Disposition: Home or Self [...] EDT Endoscopic Carpal Tunnel Release Orthopedics - [facility] - Dr. Liang ?? Wound and [...] your appointment please call the office at [phone]. ?? Concerns: Call our office immediately if [...] Code Departure Means Destination Home or Self Usp documented in this encounter H&P Notes * [...] Liang MD 06/24/2021 12:11 Source Note - CONTROL CLERK SUBASSEMBLY, SCAN 2 - 06/22/2021 15:47 EDT documented [...] room. After a procedural timeout was performed, [place] block anesthesia was placed by the anesthesiology [...] access to the carpal tunnel. A synovial [place] was used to scrape the undersurface of [...] 06/24/2021 documented in this encounter Care Teams Curtain Framer Relationship Specialty Start Date End Date Sangita Nolasco MD PCP - General 06/24/21 documented as of this encounter
--- OUTSIDE RECORDS SUMMARY | 2024-11-29 00:33 | XMS_ITS | Encounter Summary ---
Author Organization [facility] Address [address] [place] [address] Care Team Providers Care Property Appraiser Name Role Phone Lasha Angelo MD Primary Care Provider [phone] Reason for Visit * Reason Comments Post-OP Follow Up 04/21/2020: LEFT supra spinatus, infraspinatus and subscapularis repair, coracoplasty, capsular release, lysis of subdeltoid adhesions Post-OP Follow Up Encounter Details Date Type Department Care Team (Latest Contact Info) Description 05/25/2020 15:45 EDT Post-op Visit [facility] Orthopedic Surgery - [address] [place] [address] Agusto Howell III, MD [address] [place] [address] Secondary adhesive capsulitis of left [...] in this encounter Progress Notes * Agusto Howlel III, MD - 05/25/2020 1545 EDT Barrett [...] information which has been gathered by my medical staffing coordinator and is located within this note. REVIEW [...] daily. added in this encounter Care Teams Property Appraiser Relationship Specialty Start Date End Date Lasha Angelo MD PCP - General Family Medicine - Primary Care 01/09/20 06/23/21 documented as of this encounter
--- OUTSIDE RECORDS SUMMARY | 2024-11-29 00:33 | XMS_ITS | Encounter Summary ---
Author Organization [facility] Address [address] [place] [address] Care Team Providers Care Qa Analyst Name Role Phone Lasha Angelo MD Primary Care Provider Reason for Visit * Reason Comments Follow-up Encounter Details Date Type Department Care Team (Latest Contact Info) Description 08/17/2020 16:00 EST Office Visit [facility] Orthopedic Surgery - [facility] [address] [place] [address] Agusto Howell III, MD [address] [place] [address] Tear of left supraspinatus tendon [...] Notes * Agusto Howell III, MD - 08/17/2020 0000 EST [facility] ORTHOPEDIC SURGERY - [place] [...] 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 3. I will see him back at 6 months post-surgery or supraspinatus deteriorating. 4. He will let me know if his left hand numbness does not continue to improve. Agusto Howell III, MD / Dictation ID: [id number] cc: documented in this encounter Plan of [...] NEC documented in this encounter Care Teams Qa Analyst Relationship Specialty Start Date End Date Lasha Angelo MD PCP - General Family Medicine - Primary Care 01/09/20 06/23/21 documented as of this encounter
--- OUTSIDE RECORDS SUMMARY | 2024-11-29 00:33 | XMS_ITS | Encounter Summary ---
Author Organization [facility] Address [address] [place] [address] Care Team Providers Care Coder Operator Name Role Phone Lasha Angelo MD Primary Care Provider [phone] Encounter Details Date Type Department Care Team [...] documented as of this encounter Care Teams Coder Operator Relationship Specialty Start Date End Date Lasha Angelo MD PCP - General Family Medicine - Primary Care 01/09/20 06/23/21 documented as of this encounter
--- OUTSIDE RECORDS SUMMARY | 2024-11-29 00:33 | XMS_ITS | Encounter Summary ---
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] Procedures NE SHLDR ARTHROSCOP,LYSE ADHESNS NE SHLDR ARTHROSCOP,SURG,W/ROTAT CUFF REPR Agusto Howell III, MD [address] [place] [address] Phone: tel: fax: Referral ID Status Reason Start Date Expiration Date Visits Re quested Visits Authorized [id number] 02/27/2020 1 1 Encounter Details Date Type Department Care Team (Late st Contact Info) Description 04/21/2020 11:25 EDT - 04/21/2020 15:35 EDT Surgery [facility] FA Operating Room [address] [place] [address] Agusto Howell III, MD [address] [place] [address] Left Shoulder Arthroscopy Or Possible Open Procedure, Rotator Cuff Repair, Capsular Release [[id number] (CPT??)] Surgery Details Date/Time Status Location OR Service Patient Class Case Cl ass Case Type Trauma Case? 04/21/2020 1125 Posted [facility] OR FOR [facility] Outpatient Surgery H - Elective Panel [...] Murtaza Negro PA-C - 04/21/2020 16:16 EDT [facility] [employer] SHOULDER ARTHROSCOPY POSTOPERATIVE INSTRUCTIONS (Large Rotator Cuff [...] Narcotics can lead to constipation; using an vdqr-tez-xjvxjiy stool softener may be helpful. Phenergen Colace cygf-pla-iqiiobu stool softeners Things to Call Your Surgeon [...] portion of this exam. Source Note - MINING HELPER, SCAN 2 - 04/15/2020 13:13 EDT documented [...] infraspinatus repair 7. Arthroscopic coracoplasty Surgeon: Dante Sales And Customer Relations Rep: Murtaza Negro PA-C (There were no orthopedic [...] that the skilled hands of a physician certified surgical tech/first assistant were necessary for this procedure in [...] #2 ultra braid was passed in a mmkq-zl-vhhu fashion through the passport cannula using the Arthrex scorpion device to pass the sutures to create a jjyd-gf-dkja repair of the more lateral extension of [...] Note - Murtaza Negro PA-C - 04/21/2020 3848 EDT Date of procedure: 04/21/20 Pre op [...] 04/29/2020 11:4 6 EDT us Scan 2 Rn Documentation Specialist PROCEDURE/MINOR SURGICAL OR DERABLES Final Result * POC US ANESTHESIA NERVE BLOCK INTERSCALENE (04/21/2020 10:36 EDT) Narrative 04/21/2020 10:36 EDT This is a non-reportable exam. us Mikael Nolasco MD IMG US POC ORDERABLES Final Result * ECG REPORT - SCANNED (04/16/2020 14:50 EDT) 04/16/2020 14:5 0 EDT us Scan 2 Rn Documentation Specialist PROCEDURE/MINOR SURGICAL OR DERABLES Final Result * ECG REPORT - SCANNED (04/15/2020 13:13 EDT) 04/15/2020 13:1 3 EDT us Scan 2 Rn Documentation Specialist PROCEDURE/MINOR SURGICAL OR DERABLES Final Result documented [...] 04/21/2020 documented in this encounter Care Teams Academic Coordinator Relationship Specialty Start Date End Date Lasha Angelo MD PCP - General Family Medicine - Primary Care 01/09/20 06/23/21 documented as of this encounter
--- OUTSIDE RECORDS SUMMARY | 2024-11-29 00:33 | XMS_ITS | Encounter Summary ---
Author Organization [facility] Address [address] [place] [address] Care Team Providers Care Rider Ticket Worker Name Role Phone Lasha Angelo MD Primary Care Provider [phone] Reason for Visit * Reason Onset Date Comments Appointment Related 07/15/2020 Encounter Details Date Type Department Care Team (Late st Contact Info) Description 07/15/2020 Telephone [facility] [address] [place] [address] Agusto Howell III, MD [address] [place] [address] Appointment Related Social History Tobacco [...] there were no instructions. Sera Travis at [facility] [place] needs to know if he should be [...] on filedocumented in this encounter Care Teams Rider Ticket Worker Relationship Specialty Start Date End Date Lasha Angelo MD PCP - General Family Medicine - Primary Care 01/09/20 06/23/21 documented as of this encounter
--- OUTSIDE RECORDS SUMMARY | 2024-11-29 00:33 | XMS_ITS | Encounter Summary ---
Author Organization [facility] Address [address] [place] [address] Care Team Providers Care Reinforcing Steel Worker Wire Mesh Name Role Phone Lasha Angelo MD Primary Care Provider [phone] Reason for Visit * Reason Onset Date Comments DME 04/07/2020 04/21/20 surgery w /Dr. Howell Encounter Details Date Type Department Care Team (Late st Contact Info) Description 04/07/2020 Orders Only [facility] Orthopedic Surgery - [address] [place] [address] Agusto Howell III, MD [address] [place] [address] Rotator cuff syndrome, unspecified laterality [...] rt-PCR Result Negative Negative 04/17/2020 17:51 EDT [facility] Comment: This test has not [...] history, and epidemiological information. Performed on the [employer] Fusion instrument Performing Lab [place] [facility] 04/17/2020 17:51 EDT [facility] Swab ENTIRE NASOPHARYNX / Unknown Swab / Unknown 04/17/2020 12:55 EDT 04/17/2020 12:55 EDT us Agusto Howell III, MD MICROBIOLOGY - GENERAL ORD ERABLES Final Result [facility] [address] [place] [address] documented in this encounter Visit Diagnoses Diagnosis [...] 04/07/2020 documented in this encounter Care Teams Reinforcing Steel Worker Wire Mesh Relationship Specialty Start Date End Date Lasha Angelo MD PCP - General Family Medicine - Primary Care 01/09/20 06/23/21 documented as of this encounter
--- OUTSIDE RECORDS SUMMARY | 2024-11-29 00:33 | XMS_ITS | Encounter Summary ---
Author Organization [facility] Address [address] [place] [address] Care Team Providers Care Information Writer Name Role Phone Lasha Angelo MD Primary Care Provider [phone] Reason for Visit * Reason Comments Follow-up Encounter Details Date Type Department Care Team (Latest Contact Info) Description 11/25/2020 13:30 EST Office Visit Vascular Surgery and Endovascular Therapy - [facility] [address] [place] [address] Nurse Practitioner, [facility] Vasc Surg Venous [...] with his legs crossed. 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 He driving does not allow him much time to move around or elevate his legs.He is quite active in his spare time, taking care of his log cabin in [place], [place] and his [place] house on [place]. He has not been able to do [...] insufficiency documented in this encounter Care Teams Information Writer Relationship Specialty Start Date End Date Lasha Angelo MD PCP - General Family Medicine - Primary Care 01/09/20 06/23/21 documented as of this encounter
--- OUTSIDE RECORDS SUMMARY | 2024-11-29 00:33 | XMS_ITS | Encounter Summary ---
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 I have referred him to [...] syndrome documented in this encounter Care Teams Marketing Agent Relationship Specialty Start Date End Date Lasha Angelo MD PCP - General Family Medicine - Primary Care 01/09/20 06/23/21 documented as of this encounter
--- OUTSIDE RECORDS SUMMARY | 2024-11-29 00:33 | XMS_ITS | Encounter Summary ---
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] Procedures [place] SHLDR ARTHROSCOP,LYSE ADHESNS ND SHLDR ARTHROSCOP,SURG,W/ROTAT CUFF REPR Agusto Howell III, MD [address] [place] [address] Phone: tel: fax: Referral ID Status Reason Start Date Expiration Date Visits Re quested Visits Authorized [id number] 02/27/2020 1 1 Encounter Details Date Type Department Care Team (Latest Contact Info) Description 04/21/2020 9:28 EDT - 04/21/2020 17:59 EDT Hospital Encounter [facility] FA Operating Room [address] [place] [address] Agusto Howell III, MD [address] [place] [address] Discharge Disposition: Home or Self [...] PA-C - 04/21/2020 16:16 EDT Orthopedic - [facility] SHOULDER ARTHROSCOPY POSTOPERATIVE INSTRUCTIONS (Large Rotator Cuff [...] Narcotics can lead to constipation; using an yjdh-ngl-syxyjfe stool softener may be helpful. Phenergen Colace kkbz-hpu-bkkqbhr stool softeners Things to Call Your Surgeon [...] portion of this exam. Source Note - PROGRESS CLERK, SCAN 2 - 04/15/2020 13:13 EDT documented [...] infraspinatus repair 7. Arthroscopic coracoplasty Surgeon: Dante Bulk Receiver: Murtaza Negro PA-C (There were no orthopedic [...] that the skilled hands of a physician radiology assistant were necessary for this procedure in [...] #2 ultra braid was passed in a eaxx-up-gjdo fashion through the passport cannula using the Arthrex scSplashtop, Incion device to pass the sutures to create a cibg-wn-lxyo repair of the more lateral extension of [...] 04/29/2020 11:4 6 EDT us Scan 2 Respiratory Therapy Manager PROCEDURE/MINOR SURGICAL OR DERABLES Final Result * POC US ANESTHESIA NERVE BLOCK INTERSCALENE (04/21/2020 10:36 EDT) Narrative 04/21/2020 10:36 EDT This is a non-reportable exam. us Mikael Nolasco MD IMG US POC ORDERABLES Final Result * ECG REPORT - SCANNED (04/16/2020 14:50 EDT) 04/16/2020 14:5 0 EDT us Scan 2 Respiratory Therapy Manager PROCEDURE/MINOR SURGICAL OR DERABLES Final Result * ECG REPORT - SCANNED (04/15/2020 13:13 EDT) 04/15/2020 13:1 3 EDT us Scan 2 Respiratory Therapy Manager PROCEDURE/MINOR SURGICAL OR DERABLES Final Result [...] 04/21/2020 documented in this encounter Care Teams Registered Sales Assistant Relationship Specialty Start Date End Date Lasha Angelo MD PCP - General Family Medicine - Primary Care 01/09/20 06/23/21 documented as of this encounter
--- OUTSIDE RECORDS SUMMARY | 2024-11-29 00:33 | XMS_ITS | Encounter Summary ---
Author Organization [facility] Address [address] [place] [address] Care Team Providers Care Diploma Maker Name Role Phone Lasha Angelo MD Primary Care Provider [phone] Encounter Details Date Type Department Care Team (Latest Contact Info) Description 04/17/2020 13:00 EDT Phlebotomy Only [facility] Mobile Testing [address] [place] [address] Rotator cuff syndrome, unspecified laterality (Primary Dx) [...] Priority Date/Time Associated Diagnosis Comments ZZCOVID-19 TEST [facility] PCR Today 04/17/2020 12:55 EDT Rotator cuff syndrome, unspecified laterality COVID-19 TESTING Routine 04/17/2020 12:5 5 EDT Rotator cuff syndrome, unspecified laterality documented in this encounter Results * COVID-19 TEST [facility] PCR (04/17/2020 12:55 EDT) Swab ENTIRE NASOPHARYNX / Unknown Swab / Unknown 04/17/2020 12:55 EDT 04/17/2020 12:55 EDT us Agusto Howell III, MD MICROBIOLOGY - GENERAL ORD ERABLES Final Result [facility] [address] [place] [address] * COVID-19 TESTING (04/17/2020 12:55 EDT) COVID-19 rt-PCR Result Negative Negative 04/17/2020 17:51 EDT [facility] Comment: This test has [...] history, and epidemiological information. Performed on the [employer] Fusion instrument Performing Lab [place] [facility] 04/17/2020 17:51 EDT [facility] Swab ENTIRE NASOPHARYNX / Unknown Swab / Unknown 04/17/2020 12:55 EDT 04/17/2020 12:55 EDT Agusto Howell III, MD MICROBIOLOGY - GENERAL ORD ERABLES Final Result [facility] [address] [place] [address] documented in this encounter Visit Diagnoses Diagnosis Rotator cuff syndrome, unspecified laterality- Primary documented in this encounter Additional Health Concerns Infection Onset Date Last Indicated Resolved Time R/O COVID-19 04/15/2020 04/15/2020 04/20/2020 22:1 6 EDT documented as of this encounter Care Teams Diploma Maker Relationship Specialty Start Date End Date Lasha Angelo MD PCP - General Family Medicine - Primary Care 01/09/20 06/23/21 documented as of this encounter
--- OUTSIDE RECORDS SUMMARY | 2024-11-29 00:33 | XMS_ITS | Encounter Summary ---
Author Organization [facility] Address [address] [place] [address] Care Team Providers Care Gluer And Wedger Name Role Phone Lasha Angelo MD Primary Care Provider [phone] Encounter Details Date Type Department Care Team [...] on filedocumented in this encounter Care Teams Gluer And Wedger Relationship Specialty Start Date End Date Lasha Angelo MD PCP - General Family Medicine - Primary Care 01/09/20 06/23/21 documented as of this encounter
--- OUTSIDE RECORDS SUMMARY | 2024-11-29 00:33 | XMS_ITS | Encounter Summary ---
Author Organization [facility] Address [address] [place] [address] Care Team Providers Care Data Architect Name Role Phone Lasha Angelo MD Primary Care Provider [phone] Encounter Details Date Type Department Care Team (Late st Contact Info) Description 12/11/2020 14:00 EST Immunization [facility] Mobile Testing [address] [place] [address] Social History Tobacco Use Types Packs/Day Years [...] 12/11/2020 documented in this encounter Care Teams Data Architect Relationship Specialty Start Date End Date Lasha Angelo MD PCP - General Family Medicine - Primary Care 01/09/20 06/23/21 documented as of this encounter
--- OUTSIDE RECORDS SUMMARY | 2024-11-29 00:33 | XMS_ITS | Encounter Summary ---
Author Organization [facility] Address [address] [place] [address] Care Team Providers Care Blender/Braze Applicator Name Role Phone Lasha Angelo MD Primary Care Provider [phone] Reason for Visit * Reason Onset Date Comments Medications Refill 04/22/2020 Encounter Details Date Type Department Care Team (Late st Contact Info) Description 04/22/2020 Refill [facility] Orthopedic Surgery - [address] [place] [address] Murtaza Negro, PAAleshaC [address] [place] [address] Medications Refill Social History Tobacco [...] EDT New Rx for oxycodone pended to [facility] to be sent to [facility] in [facility] * Telephone Encounter - Ahmet Seth - 04/22/2020 1106 EDT [facility] ordered two meds yesterday for this patient. However, pharmacist called with the following message: Patient must use [facility] in [place], [place] to fill RX ordered yesterday by [facility], per insurance provider. Promethazine. Oxycodone. The promethazine can be transferred digitally, but the oxycodone needs to be reordered and re-sent to [facility] in [place]. Current Oxycodone order will be cancelled by the pharmacist. Patient is aware he needs to go to [facility] in [place] to order picker scripts, but will need to be called once the new Rx is sent. Myrna, pharmacist, CB: [phone]. Thank you, Ahmet documented in this encounter [...] documented as of this encounter Care Teams Blender/Braze Applicator Relationship Specialty Start Date End Date Lasha Angelo MD PCP - General Family Medicine - Primary Care 01/09/20 06/23/21 documented as of this encounter
--- OUTSIDE RECORDS SUMMARY | 2024-11-29 00:33 | XMS_ITS | Encounter Summary ---
Author Organization [facility] Address [address] [place] [address] Care Team Providers Care Hookman Name Role Phone Lasha Angelo MD Primary Care Provider [phone] Reason for Visit * Reason Onset Date Comments Paperwork request 06/02/2021 Encounter Details Date Type Department Care Team (Late st Contact Info) Description 06/02/2021 Telephone [facility] Orthopedic Surgery - [address] [place] [address] Murtaza Liang MD [address] [place] [address] Paperwork request Social History Tobacco [...] paperwork from Clinic on 06/04/21. Faxed to [place] [employer] at [phone] on 06/04/21 Scanned into patients chart on 06/04/21 * Telephone Encounter - Sun Glez - 06/02/2021 1536 EDT Received disability paperwork from [place] on 06/02/21. Labeled and placed in disability box for completion. documented in this encounter Plan of Treatment Not on file documented as of this encounter Visit Diagnoses Not on filedocumented in this encounter Care Teams Hookman Relationship Specialty Start Date End Date Lasha Angelo MD PCP - General Family Medicine - Primary Care 01/09/20 06/23/21 documented as of this encounter
--- OUTSIDE RECORDS SUMMARY | 2024-11-29 00:33 | XMS_ITS | Encounter Summary ---
Author Organization [facility] Address [address] [place] [address] Care Team Providers Care Point Of Care Technician Name Role Phone Lasha Angelo MD Primary Care Provider [phone] Reason for Visit * Reason Onset Date Comments Paperwork request 01/25/2021 Encounter Details Date Type Department Care Team (Late st Contact Info) Description 01/25/2021 Telephone [facility] Orthopedic Surgery - [facility] [address] [place], [place] [phone] Agusto Howell III, MD [address] [place] [address] Paperwork request () Social History [...] on filedocumented in this encounter Care Teams Point Of Care Technician Relationship Specialty Start Date End Date Lasha Angelo MD PCP - General Family Medicine - Primary Care 01/09/20 06/23/21 documented as of this encounter
--- OUTSIDE RECORDS SUMMARY | 2024-11-29 00:33 | XMS_ITS | Encounter Summary ---
Author Organization [facility] Address [address] [place] [address] Care Team Providers Care Community Health Coordinator Name Role Phone Lasha Angelo MD Primary Care Provider [phone] Reason for Visit * Reason Onset Date Comments Paperwork request 05/21/2020 Encounter Details Date Type Department Care Team (Late st Contact Info) Description 05/21/2020 Telephone [facility] Orthopedic Surgery - [facility] [address] [place] [address] Agusto Howell III, MD [address] [place] [address] Paperwork request Social History Tobacco [...] Miscellaneous Notes * Telephone Encounter - Sun Glez - 05/21/2020 0932 EDT Received from [employer] request for work capabilities form for the upcoming 05/25/2020 appointment. Placed in [place] box. documented in this encounter Plan of Treatment Not on file documented as of this encounter Visit Diagnoses Not on filedocumented in this encounter Care Teams Community Health Coordinator Relationship Specialty Start Date End Date Lasha Angelo MD PCP - General Family Medicine - Primary Care 01/09/20 06/23/21 documented as of this encounter
--- OUTSIDE RECORDS SUMMARY | 2024-11-29 00:33 | XMS_ITS | Encounter Summary ---
Author Organization [facility] Address [address] [place] [address] Care Team Providers Care Metals Sales Representative Name Role Phone Lasha Angelo MD Primary Care Provider [phone] Reason for Visit * Reason Onset Date Comments Appointment Related 03/27/2020 Encounter Details Date Type Department Care Team (Late st Contact Info) Description 03/27/2020 Telephone Vascular Surgery and Endovascular Therapy - [facility] [address] [place] [address] Anthony Farr MD Appointment Related Social History [...] on filedocumented in this encounter Care Teams Metals Sales Representative Relationship Specialty Start Date End Date Lasha Angelo MD PCP - General Family Medicine - Primary Care 01/09/20 06/23/21 documented as of this encounter
--- OUTSIDE RECORDS SUMMARY | 2024-11-29 00:33 | XMS_ITS | Encounter Summary ---
Author Organization [facility] Address [address] [place] [address] Care Team Providers Care Pin Drafter Operator Name Role Phone Lasha Angelo MD Primary Care Provider [phone] Encounter Details Date Type Department Care Team (Late st Contact Info) Description 04/15/2020 Prep for Procedure [facility] Orthopedic Surgery - [address] [place] [address] Murtaza Negro, PAVenkat [address] [place] [address] Social History Tobacco Use Types [...] documented as of this encounter Care Teams Pin Drafter Operator Relationship Specialty Start Date End Date Lasha Angelo MD PCP - General Family Medicine - Primary Care 01/09/20 06/23/21 documented as of this encounter
--- OUTSIDE RECORDS SUMMARY | 2024-11-29 00:33 | XMS_ITS | Encounter Summary ---
Author Organization [facility] Address [address] [place] [address] Care Team Providers Care Pipe Line Walker Name Role Phone Lasha Angelo MD Primary Care Provider [phone] Reason for Visit * Reason Onset Date Comments Other 04/29/2020 PAPERS Encounter Details Date Type Department Care Team (Late st Contact Info) Description 04/29/2020 Telephone [facility] Orthopedic Surgery - [address] [place] [address] Agusto Howell III, MD [address] [place] [address] Other ( PAPERS) Social History [...] on filedocumented in this encounter Care Teams Pipe Line Walker Relationship Specialty Start Date End Date Lasha Angelo MD PCP - General Family Medicine - Primary Care 01/09/20 06/23/21 documented as of this encounter
--- OUTSIDE RECORDS SUMMARY | 2024-11-29 00:33 | XMS_ITS | Encounter Summary ---
Author Organization [facility] Address [address] [place] [address] Care Team Providers Care Foot And Ankle Surgeon Name Role Phone Lasah Angelo MD Primary Care Provider [phone] Reason for Visit * Reason Comments Numbness Pain Score: 0-9, Rad iates: 1st-5th fingers and up to mid forearm, Duration: 2 months Pain Pain Score: 0-9, Rad iates: 1st-5th fingers and up to mid forearm, Duration: 2 months Encounter Details Date Type Department Care Team (Late st Contact Info) Description 06/18/2021 15:45 EDT Office Visit [facility] Orthopedic Surgery - [address] [place] [address] Murtaza Liang MD [address] [place] [address] Left carpal tunnel syndrome (Primary [...] months/) HPI: The patient is a 75-year-old bosuf-gvyo-abghzsbu man who presents today with bilateral hand [...] 06/18/2021 documented in this encounter Care Teams Foot And Ankle Surgeon Relationship Specialty Start Date End Date Lasha Angelo MD PCP - General Family Medicine - Primary Care 01/09/20 06/23/21 documented as of this encounter
--- OUTSIDE RECORDS SUMMARY | 2024-11-29 00:33 | XMS_ITS | Encounter Summary ---
Author Organization [facility] Address [address] [place] [address] Care Team Providers Care Special Assets Officer Name Role Phone Lasha Angelo MD Primary Care Provider [phone] Reason for Visit * Reason Onset Date Comments Other 01/14/2020 WORKERS COMP Encounter Details Date Type Department Care Team (Late st Contact Info) Description 01/14/2020 Telephone [facility] [address] [place] [address] Agusto Howell III, MD [address] [place] [address] Other (WORKERS COMP) Social History [...] on filedocumented in this encounter Care Teams Special Assets Officer Relationship Specialty Start Date End Date Lasha Angelo MD PCP - General Family Medicine - Primary Care 01/09/20 06/23/21 documented as of this encounter
--- OUTSIDE RECORDS SUMMARY | 2024-11-29 00:33 | XMS_ITS | Encounter Summary ---
Author Organization [facility] Address [address] [place] [address] Care Team Providers Care Staple Cutter Name Role Phone Lasha Angelo MD Primary Care Provider [phone] Reason for Visit * Vascular Lab (Routine) - Closed Specialty Diagnoses / Procedures Referred By Nelia sanford Referred To Contact Diagnoses Varicose veins of right lower extremity with inflammation Procedures US VARICOSE VEIN DUPLEX Anthony Farr MD Referral ID Status Reason Start Date Expiration Date Visits Re quested Visits Authorized [id number] Closed 11/27/2019 1 1 Encounter Details Date Type Department Care Team (Latest Contact Info) Description 09/04/2020 11:30 EST Ancillary Procedure Vascular Surgery and Endovascular Therapy - [facility] [address] [place], [place] [id number] Varicose veins of right lower extremity with [...] Large lateral thigh varicosity drains via a glost tile sorter. Venous HPI and Indications Painful right varicosities Venous Past Medical History Family history. Anthony Farr MD IMG US VASCULAR ORDERABLE S Final Result documented in this encounter Visit Diagnoses Diagnosis Varicose veins of right lower extremity with inflammation Varicose veins of lower extremities with inflammation documented in this encounter Care Teams Staple Cutter Relationship Specialty Start Date End Date Lasha Angelo MD PCP - General Family Medicine - Primary Care 01/09/20 06/23/21 documented as of this encounter
--- OUTSIDE RECORDS SUMMARY | 2024-11-29 00:34 | XMS_ITS | Encounter Summary ---
Author Organization [facility] Address [address] [place] [address] Care Team Providers Care Production Boring Machine Operator Name Role Phone Darnell Taylor MD Primary Care Provider [phone] Encounter Details Date Type Department Care Team (Late st Contact Info) Description 06/01/2018 12:17 EDT - 06/01/2018 23:59 EDT Hospital Encounter [address] [address] [place] [address] [facility] [place], [place] [address] Discharge Disposition: Auto Discharge Social History Tobacco [...] on filedocumented in this encounter Care Teams Production Boring Machine Operator Relationship Specialty Start Date End Date Darnell Taylor MD [address] [place] [address] PCP - General 03/02/12 07/29/19 documented as of this encounter
--- OUTSIDE RECORDS SUMMARY | 2024-11-29 00:34 | XMS_ITS | Encounter Summary ---
Author Organization [facility] Address [address] [place] [address] Care Team Providers Care Plant Assigner Name Role Phone Darnell Taylor MD Primary Care Provider [phone] Reason for Visit * Reason Onset Date Comments Appointment Related 11/05/2019 Encounter Details Date Type Department Care Team (Late st Contact Info) Description 11/05/2019 Telephone [facility] Orthopedic Surgery - [facility] [address] [place] [address] Marie [place] PA-C [address] [place] [address] Appointment Related Social History Tobacco [...] Check in at 1230 3rd floor registration [facility] 11/27/19. Radiology nurses will call with any prep Thanks Sarika Please call after injection to schedule with Marei Wyman the 2nd or 3rd week of December. The December calendar is not available at this time. The patient agreed to do this. documented in this encounter Plan of Treatment Not on file documented as of this encounter Visit Diagnoses Not on filedocumented in this encounter Care Teams Plant Assigner Relationship Specialty Start Date End Date Darnell Taylor MD PCP - General 07/30/19 01/08/20 documented as of this encounter
--- OUTSIDE RECORDS SUMMARY | 2024-11-29 00:34 | XMS_ITS | Encounter Summary ---
Author Organization [facility] Address [address] [place] [address] Care Team Providers Care Echo Technologist Name Role Phone Darnell Taylor MD Primary Care Provider Reason for Visit * Reason Onset Date Comments Other 12/20/2019 Encounter Details Date Type Department Care Team (Late st Contact Info) Description 12/20/2019 Telephone [facility] Orthopedic Surgery - [facility] [address] [place] [address] Marie [place] PA-C [address] [place] [address] Other Social History Tobacco Use [...] on filedocumented in this encounter Care Teams Echo Technologist Relationship Specialty Start Date End Date Darnell Taylor MD PCP - General 07/30/19 01/08/20 documented as of this encounter
--- OUTSIDE RECORDS SUMMARY | 2024-11-29 00:34 | XMS_ITS | Encounter Summary ---
Author Organization [facility] Address [address] [place] [address] Care Team Providers Care Quality Project Manager Name Role Phone Darnell Taylor MD Primary Care Provider [phone] Encounter Details Date Type Department Care Team ([facility] Contact Info) Description 12/18/2013 Abstract [facility] Hand & Upper Extremity Program - [address] [place] [address] Fady Kothari, PA Social History Tobacco Use [...] on filedocumented in this encounter Care Teams Quality Project Manager Relationship Specialty Start Date End Date Darnell Taylor MD [address] [place] [address] PCP - General 03/02/12 07/29/19 documented as of this encounter
--- OUTSIDE RECORDS SUMMARY | 2024-11-29 00:34 | XMS_ITS | Encounter Summary ---
Author Organization [facility] Address [address] [place] [address] Care Team Providers Care Booking Supervisor Name Role Phone Darnell Taylor MD Primary Care Provider [phone] Encounter Details Date Type Department Care Team (Latest Contact Info) Description 01/17/2017 9:23 EDT - 01/17/2017 23:59 EDT Hospital Encounter [facility] Neurophysiology - [facility] [address] [place], [place] [id number] Krish Martinez MD Discharge Disposition: Auto Discharge [...] Martinez MD - 01/17/2017 0000 EDT [facility] NEUROPHYSIOLOGY ELECTRODIAGNOSTIC MEDICINE CONSULTATION - 01/17/2017 [place] [address] Dear Ms De La Torre: Thank you for your referral of Barrett Salvador a 71-year-old male seen in electrodiagnostic consultation on 01/17/2017. 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 [...] - Krish Martinez MD ln Dictation ID: [id number] cc: Sury De La Torre PA-C, [address] [address] documented in this encounter Plan of Treatment Not on file documented as of this encounter Procedures Procedure Name Priority Date/Time Associated Diagnosis Comments ELECTROMYOGRAM - SCANNED 01/18/2017 14:23 EDT documented in this encounter Results * ELECTROMYOGRAM - SCANNED (01/18/2017 14:23 EDT) 01/18/2017 14:2 3 EDT us Scan 2 Wet End Supervisor PROCEDURE/MINOR SURGICAL OR DERABLES Final Result documented in this encounter Visit Diagnoses Not on filedocumented in this encounter Care Teams Booking Supervisor Relationship Specialty Start Date End Date Darnell Taylor MD [address] [place] [address] PCP - General 03/02/12 07/29/19 documented as of this encounter
--- OUTSIDE RECORDS SUMMARY | 2024-11-29 00:34 | XMS_ITS | Encounter Summary ---
Author Organization [facility] Address [address] [place] [address] Care Team Providers Care Senior Business Analyst Name Role Phone Darnell Taylor MD Primary Care Provider [phone] Encounter Details Date Type Department Care Team ([facility] Contact Info) Description 10/19/2016 Abstract [facility] Orthopedic Surgery - [address] [place] [address] All Rodriguez MD [address] [place] [address] Social History Tobacco Use Types [...] on filedocumented in this encounter Care Teams Senior Business Analyst Relationship Specialty Start Date End Date Darnell Taylor MD [address] [place] [address] PCP - General 03/02/12 07/29/19 documented as of this encounter
--- OUTSIDE RECORDS SUMMARY | 2024-11-29 00:34 | XMS_ITS | Encounter Summary ---
Author Organization [facility] Address [address] [place] [address] Care Team Providers Care Video Tape Duplicator Name Role Phone Darnell Taylor MD Primary Care Provider [phone] Reason for Referral * Radiology Services (Routine) - New Request Specialty Diagnoses / Procedures Referred By Nelia sanford Referred To Contact Diagnoses Arthritis of left glenohumeral joint Procedures FL GUIDED LOCALIZATION, ASPIRATION, INJECTION, BIOPSY Marie [place] PA-C Phone: tel: fax: Referral ID Status Reason Start Date Expiration Date V isits Requested Visits Authorized [id number] New Request 10/30/2019 1 1 Encounter Details Date Type Department Care Team (Late st Contact Info) Description 10/30/2019 Orders Only [facility] Orthopedic Surgery - [facility] [address] [place] [address] Marie [place] PA-C [address] [place] [phone] Arthritis of left glenohumeral joint (Primary Dx) [...] I will leave a note at the desktop support specialist stating that he should be off of [...] joint documented in this encounter Care Teams Video Tape Duplicator Relationship Specialty Start Date End Date Darnell Taylor MD PCP - General 07/30/19 01/08/20 documented as of this encounter
--- OUTSIDE RECORDS SUMMARY | 2024-11-29 00:34 | XMS_ITS | Encounter Summary ---
Author Organization [facility] Address [address] [place] [address] Care Team Providers Care Welfare Project Manager Name Role Phone Darnell Taylor MD Primary Care Provider [phone] Encounter Details Date Type Department Care Team (Late st Contact Info) Description 10/30/2019 Orders Only [facility] Radiology - [address] [place] [address] [place] [address] Gabi Garg MD [address] [place] [address] Social History Tobacco Use Types [...] on filedocumented in this encounter Care Teams Welfare Project Manager Relationship Specialty Start Date End Date Darnell Taylor MD PCP - General 07/30/19 01/08/20 documented as of this encounter
--- OUTSIDE RECORDS SUMMARY | 2024-11-29 00:34 | XMS_ITS | Encounter Summary ---
Author Organization [facility] Address [address] [place] [address] Care Team Providers Care Demand Equipment Repairer Name Role Phone Darnell Taylor MD Primary Care Provider [phone] Encounter Details Date Type Department Care Team (Late st Contact Info) Description 07/04/2018 Results Only Imaging [facility] [phone] [place], [place] [address] [facility] [place] [address] Social History Tobacco Use Types Packs/Day Years [...] on filedocumented in this encounter Care Teams Demand Equipment Repairer Relationship Specialty Start Date End Date Darnell Taylor MD [address] [place] [address] PCP - General 03/02/12 07/29/19 documented as of this encounter
--- OUTSIDE RECORDS SUMMARY | 2024-11-29 00:34 | XMS_ITS | Encounter Summary ---
Author Organization [facility] Address [address] [place] [address] Care Team Providers Care Revenue Agent Name Role Phone Darnell Taylor MD Primary Care Provider Reason for Visit * (Routine) - Receiving Office to Obtain Authorization Specialty Diagnoses / Procedures Referred By Nelia sanford Referred To Contact Procedures MR OUTSIDE IMAGES MSK Unknown, Provider, MD Referral ID Status Reason Start Date Expiration Date Visits Requested Visits Authorized [id number] Receiving Office to Obtain Authorization 10/23/2019 1 1 Encounter Details Date Type Department Care Team (Latest Contact Info) Description 10/09/2019 - 10/09/2019 23:59 EST Hospital Encounter [facility] Radiology - [address] [place] [address] [place], [place] [address] Discharge Disposition: Home or Self Care Social [...] on filedocumented in this encounter Care Teams Revenue Agent Relationship Specialty Start Date End Date Darnell Taylor MD PCP - General 07/30/19 01/08/20 documented as of this encounter
--- OUTSIDE RECORDS SUMMARY | 2024-11-29 00:34 | XMS_ITS | Encounter Summary ---
Author Organization [facility] Address [address] [place] [address] Care Team Providers Care Logistics Supply Officer Name Role Phone Darnell Taylor MD Primary Care Provider [phone] Reason for Visit * Reason Comments Knee Pain right knee pain Encounter Details Date Type Department Care Team (Latest Contact Info) Description 10/25/2016 10:[address] [facility] Orthopedic Surgery - [facility] [address] [place] [address] All Rodriguez MD [address] [place] [address] Primary osteoarthritis of right knee [...] unspecified documented in this encounter Care Teams Logistics Supply Officer Relationship Specialty Start Date End Date Darnell Taylor MD [address] [place] [address] PCP - General 03/02/12 07/29/19 documented as of this encounter
--- OUTSIDE RECORDS SUMMARY | 2024-11-29 00:34 | XMS_ITS | Encounter Summary ---
Author Organization [facility] Address [address] [place] [address] Care Team Providers Care Lost And Found Clerk Name Role Phone Darnell Taylor MD Primary Care Provider [phone] Reason for Visit * Reason Comments Pain * Consult, Test and Treat (Routine) - Closed Specialty Diagnoses / Procedures Referred By Nelia sanford Referred To Contact Orthopedic Surgery Diagnoses Left shoulder pain Myra Gonzalez PA [address] [place] [address] Phone: tel: fax: [facility] Orthopedic Surgery - [address] [place] [address] Phone: tel: fax: Referral ID Status Reason Start Date Expiration Date Visits Re quested Visits Authorized [id number] Closed 1 1 Encounter Details Date Type Department Care Team (Late st Contact Info) Description 09/18/2019 10:45 EST Office Visit [facility] Orthopedic Surgery - [address] [place] [address] Marie W[place] PA-C [address] [place] [address] Acute pain of left shoulder (Primary [...] 22 days ago. 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 I have reviewed thesefindings. [...] can, + Hawkin's impingement, unable to perform Almont's, 3/5 supraspinatus strength, 3/5 infraspinatus strengthen, 3/5 [...] spent a total of 30 minutes in anrc-ur-sdup time with this patient today and 20 [...] are often unintended grammatical, spelling, and other medical director/head team physician errors. Please disregardthese errors. * Rita Smith [...] Primary documented in this encounter Care Teams Lost And Found Clerk Relationship Specialty Start Date End Date Darnell Taylor MD PCP - General 07/30/19 01/08/20 documented as of this encounter
--- OUTSIDE RECORDS SUMMARY | 2024-11-29 00:34 | XMS_ITS | Encounter Summary ---
Author Organization [facility] Address [address] [place] [address] Care Team Providers Care Wheat Inspector Name Role Phone Darnell Taylor MD Primary Care Provider [phone] Encounter Details Date Type Department Care Team (Late st Contact Info) Description 09/18/2019 Orders Only [facility] Orthopedic Surgery - [facility] [address] [place] [address] Marie Wyman PA-C [address] [place] [address] Left shoulder pain, unspecified chronicity [...] Primary documented in this encounter Care Teams Wheat Inspector Relationship Specialty Start Date End Date Darnell Taylor MD PCP - General 07/30/19 01/08/20 documented as of this encounter
--- OUTSIDE RECORDS SUMMARY | 2024-11-29 00:34 | XMS_ITS | Encounter Summary ---
Author Organization [facility] Address [address] [place] [address] Care Team Providers Care Attractions Associate Name Role Phone Darnell Taylor MD Primary Care Provider [phone] Encounter Details Date Type Department Care Team (Latest Contact Info) Description 09/18/2019 10:15 EST - 09/19/2019 23:59 EST Hospital Encounter [facility] [place] [address] Discharge Disposition: Home or Self Care Social [...] on filedocumented in this encounter Care Teams Attractions Associate Relationship Specialty Start Date End Date Darnell Taylor MD PCP - General 07/30/19 01/08/20 documented as of this encounter
--- OUTSIDE RECORDS SUMMARY | 2024-11-29 00:34 | XMS_ITS | Encounter Summary ---
Author Organization [facility] Address [address] [place] [address] Care Team Providers Care Resident Services Coordinator Name Role Phone Lasha Angelo MD Primary Care Provider [phone] Encounter Details Date Type Department Care Team [...] on filedocumented in this encounter Care Teams Resident Services Coordinator Relationship Specialty Start Date End Date Lasha Angelo MD PCP - General Family Medicine - Primary Care 01/09/20 06/23/21 documented as of this encounter
--- OUTSIDE RECORDS SUMMARY | 2024-11-29 00:34 | XMS_ITS | Encounter Summary ---
Author Organization [facility] Address [address] [place] [address] Care Team Providers Care Moto Mix Operator Name Role Phone Lasha Angelo MD Primary Care Provider [phone] Reason for Referral * PT/OT/ST (Routine/Next Available) [...] Phone: tel: fax: [facility], Physical Therapy [address] [place] [address] Phone: tel: fax: Referral ID Status Reason Start Date Expiration Date V isits Requested Visits Authorized [id number] Closed Specialty Services Required 01/13/2020 1 1 [...] Contact Info) Description 01/13/2020 8:30 EDT Telemedicine [facility] Orthopedic Surgery - [facility] [address] [place] [address] Agusto Howell III, MD [address] [place] [address] Tear of left supraspinatus tendon [...] [facility] PT for several weeks through [facility]. He hasnot been back to physical therapy [...] is 1-1/2 years away from his planned fci and would like to get back to [...] pain management and resume physical therapy at [facility] when that office reopens presumably after the [...] documented as of this encounter Care Teams Moto Mix Operator Relationship Specialty Start Date End Date Lasha Angelo MD PCP - General Family Medicine - Primary Care 01/09/20 06/23/21 documented as of this encounter
--- OUTSIDE RECORDS SUMMARY | 2024-11-29 00:34 | XMS_ITS | Encounter Summary ---
Author Organization [facility] Address [address] [place] [address] Care Team Providers Care Shampoo Technician Name Role Phone Darnell Taylor MD Primary Care Provider [phone] Encounter Details Date Type Department Care Team ([facility] st Contact Info) Description 05/13/2014 Results Only [facility] Laboratory Services - [facility] ([facility]) [address] [place], [place] [address] Darnell Taylor MD [address] [place] [address] [phone] Social History Tobacco Use Types Packs/Day Years [...] Fin al Result [facility] [address] [place] [address] * (ABNORMAL) HEMAGRAM (05/13/2014 8:56 EDT) WBC [...] ORDERABLES Fin al Result Performing Organization Address [facility] Co de Phone Number [facility] [address] [place] [address] * (ABNORMAL) HEPATIC FUNCTION PANEL (ALB,ALK PHOS,ALT,AST,DBIL,TOT EDY,TOT PROT) (05/13/2014 8:56 EDT) Albumin 3.6 3.4 - 4.9 g/dl [facility] Total Protein 6.0(L) 6.5 - 8.3 g/dl [facility] Total Alkaline Phosphatase 71 38 - 126 U/L [facility] ALT 48 21 - 72 U/L [facility] AST 32 15 - 46 U/L [facility] Unconjugated Bilirubin 0.2 0.0 - 1.1 mg/dl [facility] Conjugated Bilirubin 0.0 0.0 - 0.3 mg/dl [facility] Bilirubin, Total <0.5 <1.4 mg/dl FL [facility] 05/13/2014 8:56 EDT 05/13/2014 11:02 EDT Darnell Taylor MD CHEMISTRY & BLOOD GAS ORDERABLE S Final Result Performing Organization Address City/[facility] Co de Phone Number [facility] [address] [place] [address] * IRON (05/13/2014 8:56 EDT) Iron 64 49 - 181 ug/dl [facility] 05/13/2014 8:56 EDT 05/13/2014 11:02 EDT us Darnell Taylor MD CHEMISTRY & BLOOD GAS ORDERABLE S Final Result Performing Organization Address [facility] de Phone Number [facility] [address] [place] [address] * IBC (05/13/2014 8:56 EDT) TIBC 293 261 - 462 ug/dl [facility] 05/13/2014 8:56 EDT 05/13/2014 11:02 EDT us Darnell Taylor MD CHEMISTRY & BLOOD GAS ORDERABLE S Final Result Performing Organization Address [facility] Phone Number [facility] [address] [place] [address] documented in this encounter Visit Diagnoses Not on filedocumented in this encounter Care Teams Shampoo Technician Relationship Specialty Start Date End Date Darnell Taylor MD [address] [place] [address] PCP - General 03/02/12 07/29/19 documented as of this encounter
--- OUTSIDE RECORDS SUMMARY | 2024-11-29 00:34 | XMS_ITS | Encounter Summary ---
Author Organization [facility] Address [address] [place] [address] Care Team Providers Care Aluminum Sheet Cutter Name Role Phone Darnell Taylor MD Primary Care Provider [phone] Reason for Referral * Consult, Test and Treat (Routine/Next Available) - Closed Specialty Diagnoses / Procedures Referred By Nelia sanford Referred To Contact Rehab Therapies Diagnoses Trigger finger of right hand Fady Kothari PA [facility] Rehabilitation Therapy - [place] [address] [place] [address] Phone: tel: fax: Referral ID Status Reason Start Date Expiration Date V isits Requested Visits Authorized [id number] Closed Specialty Services Required 11/18/2013 1 1 Question Answer Reason for Request: RIght index and long finger trigger fingers post injection today Comments Post injection trigger splint only protocol Reason for Visit * Reason Comments Hand Pain Bilateral [facility] for synovitis left long trigger finger. Encounter Details Date Type Department Care Team (Late st Contact Info) Description 11/18/2013 9:45 EST Office Visit [facility] Hand & Upper Extremity Program - [address] [address] Fady Kothari PA Trigger finger [...] 1 month. 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 Generally recommend 2 cortisone injections before proceeding with surgical trigger finger release. 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 cc: Darnell Taylor * Panfil[facility] - 11/18/2013 1116 EST Two trigger finger injections today consisting of XYLOCAINE LOT # [id number] [facility] # [id number] EXP DATE 07/2017 MOLTEN IRON POURER-BHAVANA 1 cc DEPO MEDROL 40 mg LOT # [id number] ND # [id number] EXP DATE 05/2014 MOLTEN IRON POURER- PFIZER 1cc DEPO MEDROL 40 mg LOT # [id number] ND # [id number] EXP DATE 05/2014 MOLTEN IRON POURER- PFIZER 1 cc TOM Whittaker documented in this encounter Plan of Treatment Scheduled Referrals Name Type Priority Associated Diagnoses Orde r Schedule AMB CONSULT HAND THERAPY Outpatient Referral Routine Trigger Finger Of Right Hand Ordered: 11/18/2013 documented as of this encounter Visit Diagnoses Diagnosis Trigger finger of right hand- Primary Trigger finger (acquired) documented in this encounter Care Teams Aluminum Sheet Cutter Relationship Specialty Start Date End Date Darnell Taylor MD [address] [place] [address] PCP - General 03/02/12 07/29/19 documented as of this encounter
--- OUTSIDE RECORDS SUMMARY | 2024-11-29 00:34 | XMS_ITS | Encounter Summary ---
Author Organization [facility] Address [address] [place] [address] Care Team Providers Care Technical Coordinator Name Role Phone Darnell Taylor MD Primary Care Provider [phone] Reason for Visit * Reason Onset Date Comments Advice Only 12/20/2019 Encounter Details Date Type Department Care Team (Late st Contact Info) Description 12/20/2019 Telephone [facility] - [facility] [address] [place] [address] Marie Wyman PA-C [address] [place] [address] Advice Only Social History Tobacco [...] Ramos - 12/20/2019 1238 EST Nallely from [employer] is calling stating that this patient had [...] on filedocumented in this encounter Care Teams Technical Coordinator Relationship Specialty Start Date End Date Darnell Taylor MD PCP - General 07/30/19 01/08/20 documented as of this encounter
--- OUTSIDE RECORDS SUMMARY | 2024-11-29 00:34 | XMS_ITS | Encounter Summary ---
Author Organization [facility] Address [address] [place] [address] Care Team Providers Care Gifted Program Teacher Name Role Phone Darnell Taylor MD Primary Care Provider [phone] Reason for Referral * Radiology Services (Routine) - New Request Specialty Diagnoses / Procedures Referred By Nelia sanford Referred To Contact Diagnoses Arthritis of left glenohumeral joint Procedures FL GUIDED LOCALIZATION, ASPIRATION, INJECTION, BIOPSY Marie Wyman PA-C Phone: tel: fax: Referral ID Status Reason Start Date Expiration Date V isits Requested Visits Authorized [id number] New Request 10/30/2019 1 1 Reason for Visit * Radiology Services (Routine) - New Request Specialty Diagnoses / Procedures Referred By Nelia sanford Referred To Contact Diagnoses Arthritis of left glenohumeral joint Procedures FL GUIDED LOCALIZATION, ASPIRATION, INJECTION, BIOPSY Marie Wyman PA-C Phone: tel: fax: Referral ID Status Reason Start Date Expiration Date V isits Requested Visits Authorized [id number] New Request 10/30/2019 1 1 Encounter Details Date Type Department Care Team (Latest Contact Info) Description 11/27/2019 12:35 EST - 11/27/2019 23:59 EST Hospital Encounter [facility] Radiology Fluoroscopy - [facility] [address] [place] [address] Arthritis of left glenohumeral joint Discharge Disposition: [...] mg documented in this encounter Care Teams Gifted Program Teacher Relationship Specialty Start Date End Date Darnell Taylor MD PCP - General 07/30/19 01/08/20 documented as of this encounter
--- OUTSIDE RECORDS SUMMARY | 2024-11-29 00:34 | XMS_ITS | Encounter Summary ---
Author Organization [facility] Address [address] [place] [address] Care Team Providers Care Tanning Salon Attendant Name Role Phone Darnell Taylor MD Primary Care Provider Encounter Details Date Type Department Care Team (Latest Contact Info) Description 05/13/2014 12:40 EDT - 05/13/2014 12:42 EDT Hospital [facility] [address] [place] [address] Darnell Taylor MD [address] [place] [address] Discharge Disposition: Home or Self Care Social [...] on filedocumented in this encounter Care Teams Tanning Salon Attendant Relationship Specialty Start Date End Date Darnell Taylor MD [address] [place] [address] PCP - General 03/02/12 07/29/19 documented as of this encounter
--- OUTSIDE RECORDS SUMMARY | 2024-11-29 00:34 | XMS_ITS | Encounter Summary ---
Author Organization [facility] Address [address] [place] [address] Care Team Providers Care Control Systems Specialist Name Role Phone Darnell Taylor MD Primary Care Provider [phone] Encounter Details Date Type Department Care Team (Latest Contact Info) Description 12/31/2013 Pre-Procedure Orders Encounter [facility] ORTHOPEDIC SURGERY [address] [place], [place] [address] Murtaza Negro, JAMES [address] [place] [address] Disorders of bursae and tendons [...] region documented in this encounter Care Teams Control Systems Specialist Relationship Specialty Start Date End Date Darnell Taylor MD [address] [place] [address] PCP - General 03/02/12 07/29/19 documented as of this encounter
--- OUTSIDE RECORDS SUMMARY | 2024-11-29 00:34 | XMS_ITS | Encounter Summary ---
Author Organization [facility] Address [address] [place] [address] Care Team Providers Care Mattress Filling Machine Tender Name Role Phone Darnell Taylor MD Primary Care Provider Reason for Visit * Reason Comments Laceration Struck left [facility] fing er with rn neonatal knife 1 hours ago. sensation and ROM intact. 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 * LACERATIONS: STITCHES (MACEDONIAN) documented in this encounter Medications at Time [...] digit. Pt states I was using a rn neonatal knife to make dinner and I cut [...] exam for emergent medical conditions at the [facility] on 12/10/2018 Scribe attestation: This documentation is [...] agree with the findings. Procedure Note Gonzalez Brothers MD - 12/10/2018 CHEST 2 VIEWS 12/10/2018 [...] findings. Dago Cazares MD IMG DIAGNOSTIC IMAGING [facility] Final Result * Laceration (12/09/2018 22:17 EST) Narrative [facility] EKG - 12/09/2018 22:17 EST Dago [...] MD PROCEDURE/MINOR SURGICAL OR DERABLES Final Result [facility] EKG * HAND 3 OR MORE [...] Primary documented in this encounter Care Teams Mattress Filling Machine Tender Relationship Specialty Start Date End Date Darnell Taylor MD [address] [place] [address] PCP - General 03/02/12 07/29/19 documented as of this encounter
--- OUTSIDE RECORDS SUMMARY | 2024-11-29 00:34 | XMS_ITS | Encounter Summary ---
Author Organization [facility] Address [address] [place] [address] Care Team Providers Care Design Editor Name Role Phone Darnell Taylor MD Primary Care Provider [phone] Encounter Details Date Type Department Care Team [...] on filedocumented in this encounter Care Teams Design Editor Relationship Specialty Start Date End Date Darnell Taylor MD [address] [place] [address] PCP - General 03/02/12 07/29/19 documented as of this encounter
--- OUTSIDE RECORDS SUMMARY | 2024-11-29 00:34 | XMS_ITS | Encounter Summary ---
Author Organization [facility] Address [address] [place] [address] Care Team Providers Care Litigation Secretary Name Role Phone Darnell Taylor MD Primary Care Provider [phone] Encounter Details Date Type Department Care Team ([facility] st Contact Info) Description 06/04/2015 Results Only [facility] [phone] Darnell Taylor MD [address] [place] [address] Social History Tobacco Use Types Packs/Day Years [...] EDT HEPATIC FUNCTION PANEL (ALB,ALK PHOS,ALT,AST,DBIL,T OT EDY,TOT PROT) Routine 06/04/2015 11:07 EDT documented in this encounter Results * HEPATIC FUNCTION PANEL (ALB,ALK PHOS,ALT,AST,DBIL,TOT EDY,TOT PROT) (06/04/2015 11:07 EDT) Albumin 4.4 3.4 - 4.9 g/dl 06/04/2015 19:22 [facility] Total Protein 7.0 6.3 - 8.2 g/dl 06/04/2015 19:22 [facility] Total Alkaline Phosphatase 71 38 - 126 U/L 06/04/2015 19:22 [facility] ALT 34 21 - 72 U/L 06/04/2015 19:22 [facility] AST 25 15 - 46 U/L 06/04/2015 19:22 [facility] Unconjugated Bilirubin 0.1 0.0 - 1.1 mg/dl 06/04/2015 19:22 [facility] Conjugated Bilirubin 0.0 0.0 - 0.3 mg/dl 06/04/2015 19:22 [facility] Bilirubin, Total 0.6 <1.4 mg/dl 06/04/20 19:22 [facility] BLOOD SPECIMEN / Unknown 06/04/2015 11:07 EDT 06/04/2015 18:30 EDT us Darnell Taylor MD CHEMISTRY & BLOOD GAS ORDERABLE S Final Result Performing Organization Address City/State/[facility] Co de Phone Number [facility] [address] [place] [address] * (ABNORMAL) HEMAGRAM (06/04/2015 11:07 EDT) WBC 4.75 4.0 - 10.4 K/cmm 06/04/2015 18:59 [facility] RBC 4.54 4.36 - 5.78 M/cmm 06/04/2015 18:59 [facility] Hemoglobin 14.4 13.8 - 17.3 gm/dl 06/04/2015 18:59 [facility] HCT 42.2 39.5 - 50.2 % 06/04/2015 18:59 EDT [facility] MCV 93 81 - 95 fl 06/04/2015 18:59 EDT [facility] MCH 31.7 27.6 - 33.0 pg 06/04/2015 18:59 EDT [facility] MCHC 34.1 32.8 - 36.4 gm/dl 06/04/2015 18:59 EDT [facility] RDW-CV 13.4 11.8 - 14.1 % 06/04/2015 18:59 EDT [facility] RDW-SD 43.3 36.5 - 45.9 fl 06/04/2015 18:59 EDT [facility] PLT 194 141 - 320 K/cmm 06/04/2015 18:59 EDT [facility] MPV 7.4(L) 7.5 - 11.2 fl 06/04/2015 18:59 EDT [facility] BLOOD SPECIMEN / Unknown 06/04/2015 11:07 EDT 06/04/2015 18:30 EDT us Darnell Taylor MD HEMATOLOGY & PF4 ORDERABLES Fin al Result Performing Organization Address City/State/[facility] Co de Phone Number [facility] [address] [place] [address] documented in this encounter Visit Diagnoses Not on filedocumented in this encounter Care Teams Litigation Secretary Relationship Specialty Start Date End Date Darnell Taylor MD [address] [place] [address] PCP - General 03/02/12 07/29/19 documented as of this encounter
--- OUTSIDE RECORDS SUMMARY | 2024-11-29 00:34 | XMS_ITS | Encounter Summary ---
Author Organization [facility] Address [address] [place] [address] Care Team Providers Care Blueprinting And Photocopy Supervisor Name Role Phone Darnell Taylor MD Primary Care Provider [phone] Encounter Details Date Type Department Care Team (Late st Contact Info) Description 12/15/2014 7:03 EST - 12/15/2014 10:17 EST Hospital Encounter [facility] Endoscopy Outpatient [address] [place] [address] Darek Collazo MD [address] [place] [address] [address] [place] [address] Discharge Disposition: Home or Self [...] & Physical Date: 12/15/2014 Time: 8:04 Location: [address] Planned Procedure: Colonoscopy Chief Complaint/Indications for [...] EST) 12/16/2014 0:35 EST us Scan 2 Bulk Sausage Casing Tier Off PROCEDURE/MINOR SURGICAL OR DERABLES Final Result documented [...] 12/15/2014 documented in this encounter Care Teams Blueprinting And Photocopy Supervisor Relationship Specialty Start Date End Date Darnell Taylor MD [address] [place] [address] PCP - General 03/02/12 07/29/19 documented as of this encounter
--- OUTSIDE RECORDS SUMMARY | 2024-11-29 00:34 | XMS_ITS | Encounter Summary ---
Author Organization [facility] Address [address] [place] [address] Care Team Providers Care Program Support Specialist Name Role Phone Lasha Angelo MD Primary Care Provider [phone] Reason for Visit * Reason Onset Date Comments Other 01/13/2020 WORKERS COMP PAP ERS Encounter Details Date Type Department Care Team (Late st Contact Info) Description 01/13/[address] [facility] Orthopedic Surgery - [facility] Tico Patel [address] [place] [address] Agusto Howell III, MD [address] [place] [address] Other (WORKERS COMP PAPERS) Social [...] on filedocumented in this encounter Care Teams Program Support Specialist Relationship Specialty Start Date End Date Lasha Angelo MD PCP - General Family Medicine - Primary Care 01/09/20 06/23/21 documented as of this encounter
--- OUTSIDE RECORDS SUMMARY | 2024-11-29 00:34 | XMS_ITS | Encounter Summary ---
Author Organization [facility] Address [address] [place] [address] Care Team Providers Care Employment Law Specialist Name Role Phone Darnell Taylor MD Primary Care Provider [phone] Reason for Visit * Reason Comments Hand Pain left on going for a year * Consult (Routine) - Closed Specialty Diagnoses / Procedures Referred By Nelia sanford Referred To Contact Orthopedic Surgery Diagnoses Bilateral hand pain Self, Referral Murtaza Liang MD Phone: tel: fax: Referral ID Status Reason Start Date Expiration Date Visits Re quested Visits Authorized [id number] Closed 1 1 Encounter Details Date Type Department Care Team (Late st Contact Info) Description 05/25/2018 15:[address] [facility] Orthopedic Surgery - [address] [place] [address] Murtaza Liang MD [address] [place] [phone] Carpal tunnel syndrome, bilateral (Primary Dx) Social [...] from the original note were not included. [facility] Patient Instructions Carpal Tunnel Syndrome: Exercises Your [...] Where can you learn more? Go to [email or web address] or log into your [employer] account at [email or web address]. Enter U908 in the search box to learn more about Carpal Tunnel Syndrome: Exercises. Current as of: September 13, 2017 Content Version: 11.6 ?? [id number] [employer]. Care instructions adapted under license by [facility] If you have questions about a medical condition or this instruction, always ask your healthcare professional. [employer] disclaims any warranty or liability foryour use [...] (acetaminophen) or Advil (ibuprofen) as directed by package car driver if not contraindicated ??? No Swimming for [...] care physician Thank you for choosing the [facility] Orthopedics [facility] for your care. If you have any questions after receiving an injection, or if your pain does not subside, please call at [phone] and let us know. Our goal is [...] Issues x The patient is a 72-year-old lugun-ewev-sbsntkly man who presents today with pain in [...] out of 10. 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 and believes that his symptoms are probably [...] Lidocaine HCL (5mL)- 1% Med lot number: [id number] [facility] number: [id number] BUD: 04/06 Hydraulic Auto Jack Mechanic: BHAVANA [employer] [facility] Depo Medrol 40mg/mL Med lot number: [id number] [facility] number: [id number] BUD: 03/2019 Hydraulic Auto Jack Mechanic: Radhika Schwab [employer] Kanwal Stanford 15:45 documented in this encounter Plan of Treatment Not on file documented as of this encounter Visit Diagnoses Diagnosis Carpal tunnel syndrome, bilateral- Primary Carpal tunnel syndrome documented in this encounter Care Teams Employment Law Specialist Relationship Specialty Start Date End Date Darnell Taylor MD [address] [place] [address] PCP - General 03/02/12 07/29/19 documented as of this encounter
--- OUTSIDE RECORDS SUMMARY | 2024-11-29 00:34 | XMS_ITS | Encounter Summary ---
Author Organization [facility] Address [address] [place] [address] Care Team Providers Care Betting Clerk Name Role Phone Darnell Taylor MD Primary Care Provider [phone] Encounter Details Date Type Department Care Team (Late st Contact Info) Description 11/17/2014 10:26 EST - 11/17/2014 22:00 EST Hospital Encounter [facility] [address] [place] [address] Darnell Taylor MD [address] [place] [address] Yair Vasquez MD [address] [place] [phone] Discharge Disposition: Home or Self Care Social [...] on filedocumented in this encounter Care Teams Betting Clerk Relationship Specialty Start Date End Date Darnell Taylor MD [address] [place] [address] PCP - General 03/02/12 07/29/19 documented as of this encounter
--- OUTSIDE RECORDS SUMMARY | 2024-11-29 00:34 | XMS_ITS | Encounter Summary ---
Author Organization [facility] Address [address] [place] [address] Care Team Providers Care Emergency Medical Tech Name Role Phone Darnell Taylor MD Primary Care Provider [phone] Encounter Details Date Type Department Care Team (Late st Contact Info) Description 11/14/2019 Orders Only [facility] Orthopedic Surgery - [facility] [address] [place] [address] Marie Wyman PA-C [address] [place] [address] Social History Tobacco Use Types [...] on filedocumented in this encounter Care Teams Emergency Medical Tech Relationship Specialty Start Date End Date Darnell Taylor MD PCP - General 07/30/19 01/08/20 documented as of this encounter
--- OUTSIDE RECORDS SUMMARY | 2024-11-29 00:34 | XMS_ITS | Encounter Summary ---
Author Organization [facility] Address [address] [place] [address] Care Team Providers Care Manager Business Continuity Name Role Phone Darnell Taylor MD Primary Care Provider [phone] Reason for Visit * Reason Comments Hand Pain Left ring and small finger * Consult (Routine) - Closed Specialty Diagnoses / Procedures Referred By Nelia sanford Referred To Contact Orthopedic Surgery Diagnoses Dupuytren's contracture of right hand Self, Referral [facility] Orthopedic Surgery - [address] [place] [address] Phone: tel: fax: Referral ID Status Reason Start Date Expiration Date Visits Re quested Visits Authorized [id number] Closed 1 1 Encounter Details Date Type Department Care Team (Late st Contact Info) Description 07/31/2019 14:30 EDT Office Visit [facility] Orthopedic Surgery - [address] [place] [address] Murtaza Liang MD [address] [place] [address] Dupuytren's disease of palm of [...] Issues x The patient is a 73-year-old vsrrm-mtit-onvsyequ man who presents today with a cord [...] documented in this encounter Care Teams Manager Business Continuity Relationship Specialty Start Date End Date Darnell Taylor MD PCP - General 07/30/19 01/08/20 documented as of this encounter
--- OUTSIDE RECORDS SUMMARY | 2024-11-29 00:34 | XMS_ITS | Encounter Summary ---
Author Organization [facility] Address [address] [place] [address] Care Team Providers Care Hand Coremaker Name Role Phone Darnell Taylor MD Primary Care Provider [phone] Reason for Visit * (Routine) - Receiving Office to Obtain Authorization Specialty Diagnoses / Procedures Referred By Nelia t Referred To Contact Procedures XR OUTSIDE IMAGES MSK Unknown, Provider, MD Referral ID Status Reason Start Date Expiration Date Visits Requested Visits Authorized [id number] Receiving Office to Obtain Authorization 09/16/2019 1 1 Encounter Details Date Type Department Care Team (Late st Contact Info) Description 09/16/2019 14:05 EST - 09/16/2019 23:59 EST Hospital [facility] Radiology - Main [place] [address] [place], [place] [id number] Social History Tobacco Use Types Packs/Day Years [...] on filedocumented in this encounter Care Teams Hand Coremaker Relationship Specialty Start Date End Date Darnell Taylor MD PCP - General 07/30/19 01/08/20 documented as of this encounter
--- OUTSIDE RECORDS SUMMARY | 2024-11-29 00:34 | XMS_ITS | Encounter Summary ---
Author Organization [facility] Address [address] [place] [address] Care Team Providers Care Virtual Office Assistant Name Role Phone Darnell Taylor MD Primary Care Provider [phone] Encounter Details Date Type Department Care Team ([facility] st Contact Info) Description 11/17/2014 Results Only [facility] Laboratory Services - [facility] [address] [place], [place] [address] Darnell Taylor MD [address] [place], [place] [id number] Social History Tobacco Use Types Packs/Day Years [...] 1.7 - 2.8 mg/dl 11/17/2014 20:11 EST [facility] BLOOD SPECIMEN / Unknown 11/17/2014 11:07 EST 11/17/2014 19:07 EST Darnell Taylor MD CHEMISTRY & BLOOD GAS ORDERABLE S Final Result Performing Organization Address City/[facility] Co de Phone Number [facility] [address] [place] [address] * ELECTROLYTES (11/17/2014 11:07 EST) Sodium 138 136 - 145 mEq/L 11/17/2014 20:11 [facility] Potassium 4.1 3.5 - 5.0 mEq/L 11/17/2014 20:11 [facility] Chloride 99 96 - 110 mEq/L 11/17/2014 20:11 [facility] CO2 30 24 - 32 mEq/L 11/17/2014 20:11 [facility] BLOOD SPECIMEN / Unknown 11/17/2014 11:07 EST 11/17/2014 19:07 EST Darnell Taylor MD CHEMISTRY & BLOOD GAS ORDERABLE S Final Result Performing Organization Address City/[facility]/ZIP Co de Phone Number [facility] [address] [place] [address] * IRON (11/17/2014 11:07 EST) Iron 63 49 - 181 ug/dl 11/17/2014 20:11 EST [facility] BLOOD SPECIMEN / Unknown 11/17/2014 11:07 EST 11/17/2014 19:07 EST Darnell Taylor MD CHEMISTRY & BLOOD GAS ORDERABLE S Final Result Performing Organization Address City/[facility]/ZIP Co de Phone Number [facility] [address] [place] [address] * CREATININE (11/17/2014 11:07 EST) Creatinine 0.96 0.66 - 1.25 mg/dl 11/17/2014 20:11 [facility] GFR, Calculated >60 >60 ml/min/1.7 3m2 11/17/2014 20:11 [facility] BLOOD SPECIMEN / Unknown 11/17/2014 11:07 EST 11/17/2014 19:07 EST Darnell Taylor MD CHEMISTRY & BLOOD GAS ORDERABLE S Final Result Performing Organization Address [facility] Co de Phone Number [facility] [address] [place] [address] * (ABNORMAL) HEMAGRAM AND DIFFERENTIAL (11/17/2014 11:07 EST) WBC 5.07 4.0 - 10.4 K/cmm 11/17/2014 19:58 [facility] RBC 4.61 4.36 - 5.78 M/cmm 11/17/2014 19:58 [facility] Hemoglobin 14.8 13.8 - 17.3 gm/dl 11/17/2014 19:58 [facility] HCT 42.9 39.5 - 50.2 % 11/17/2014 19:58 [facility] MCV 93 81 - 95 fl 11/17/2014 19:58 [facility] MCH 32.2 27.6 - 33.0 pg 11/17/2014 19:58 [facility] MCHC 34.6 32.8 - 36.4 gm/dl 11/17/2014 19:58 [facility] RDW-CV 13.1 11.8 - 14.1 % 11/17/2014 19:58 [facility] RDW-SD 42.4 36.5 - 45.9 fl 11/17/2014 19:58 [facility] PLT 208 141 - 320 K/cmm 11/17/2014 19:58 [facility] MPV 7.6 7.5 - 11.2 fl 11/17/2014 19:58 [facility] % Neutrophils 77.0 45.5 - 79.7 % 11/17/2014 19:58 [facility] % Lymphocytes 16.4 15.0 - 46.8 % 11/17/2014 19:58 [facility] % Monocytes 4.6 1.8 - 12.0 % 11/17/2014 19:58 [facility] % Eosinophils 1.3 0.6 - 6.9 % 11/17/2014 19:58 [facility] % Basophils 0.7 0.2 - 1.4 % 11/17/2014 19:58 [facility] ABS Neutrophils 3.90 2.20 - 8.85 K/cmm 11/17/2014 19:58 [facility] ABS Lymphs 0.83(L) 1.09 - 3.30 K/cmm 11/17/2014 19:58 [facility] ABS Monocytes 0.23 0.1 - 0.8 K/cmm 11/17/2014 19:58 [facility] ABS Eosinophils 0.07 0.03 - 0.61 K/cmm 11/17/2014 19:58 [facility] ABS Basophils 0.04 0.01 - 0.11 K/cmm 11/17/2014 19:58 [facility] Type of Diff: Automated 11/17/2014 19:58 [facility] BLOOD SPECIMEN / Unknown 11/17/2014 11:07 EST 11/17/2014 19:07 EST us Darnell Taylor MD PACKAGES & DNA PROBE ORDERABLES Final Result [facility] [address] [place] [address] documented in this encounter Visit Diagnoses Not on filedocumented in this encounter Care Teams Virtual Office Assistant Relationship Specialty Start Date End Date Darnell Taylor MD [address] [place] [address] PCP - General 03/02/12 07/29/19 documented as of this encounter
--- OUTSIDE RECORDS SUMMARY | 2024-11-29 00:34 | XMS_ITS | Encounter Summary ---
Author Organization [facility] Address [address] [place] [address] Care Team Providers Care Infrastructure Administrator Name Role Phone Darnell Taylor MD Primary Care Provider [phone] Reason for Visit * Reason Onset Date Comments Employment Physical 09/29/2016 Encounter Details Date Type Department Care Team (Late st Contact Info) Description 09/29/2016 Telephone [facility] Orthopedic Surgery - [facility] [address] [place] [address] All Rodriguez MD [address] [place] [address] Employment Physical Social History Tobacco [...] Telephone Encounter - Jonel Nuñez - 09/29/2016 1139 EST Left voicemail advising last work status was done on 11/18/2015 advising no work restrictions, let him know its up to his employer if he will allow him to work overtime. * Telephone Encounter - Fanny Castaneda - 09/29/2016 1113 EST Rayo phoned would like an updated work note stating he is okay to work Overtime. Please contact pt at [phone] documented in this encounter Plan of Treatment Not on file documented as of this encounter Visit Diagnoses Not on filedocumented in this encounter Care Teams Infrastructure Administrator Relationship Specialty Start Date End Date Darnell Taylor MD [address] [place] [address] PCP - General 03/02/12 07/29/19 documented as of this encounter
--- OUTSIDE RECORDS SUMMARY | 2024-11-29 00:34 | XMS_ITS | Encounter Summary ---
Author Organization [facility] Address [address] [place] [address] Care Team Providers Care Preventive Medicine Officer Name Role Phone Darnell Taylor MD Primary Care Provider [phone] Encounter Details Date Type Department Care Team (Latest Contact Info) Description 08/27/2015 7:36 EST - 08/27/2015 13:23 EST Hospital Encounter [facility] Perioperative Services - [address] [address] Jose Cruz Rodriguez MD [address] [place] [phone] Discharge Disposition: Home or Self Care [...] RODRIGUEZ MD 08/27/2015 8:15 Source Note - LIQUID HYDROGEN PLANT OPERATOR, EDWARDO 2 - 08/20/2015 9:45 EST documented [...] femoral condyle. SURGEON: Jose Cruz Rodriguez MD GUSSET FOLDER: COMPLICATIONS: None. COUNTS: Correct. DRAINS: None. DISPOSITION: [...] / Jose Cruz Rodriguez MD jn Confirmation: [id number] Dictation ID: [id number] documented in this encounter Miscellaneous Notes * [...] EST) 09/01/2015 7:33 EST us Scan 2 Plastics And Composites Inspector PROCEDURE/MINOR SURGICAL OR DERABLES Final Result * ECG REPORT - SCANNED (08/20/2015 9:45 EST) 08/20/2015 9:45 EST us Scan 2 Plastics And Composites Inspector PROCEDURE/MINOR SURGICAL OR DERABLES Final Result documented [...] ider: Lidia Guerra, KIRSTY)[id number] (Completed - Provider: Domniga Gonzalez RN) documented in this encounter Orders [...] 08/27/2015 documented in this encounter Care Teams Preventive Medicine Officer Relationship Specialty Start Date End Date Darnell Taylor MD [address] [place] [address] PCP - General 03/02/12 07/29/19 documented as of this encounter
--- OUTSIDE RECORDS SUMMARY | 2024-11-29 00:34 | XMS_ITS | Encounter Summary ---
Author Organization [facility] Address [address] [place] [address] Care Team Providers Care Area Counselor Name Role Phone Darnell Taylor MD Primary Care Provider [phone] Encounter Details Date Type Department Care Team (Latest Contact Info) Description 01/02/2014 9:21 EDT - 01/02/2014 18:37 EDT Hospital [facility] Perioperative Services - [address] [address] Agusto Howell III, MD [address] [place] [phone] Disorders of bursae and tendons in [...] Narcotics can lead to constipation; using an vveb-hal-kkjodem stool softener such as colace may be helpful. Things to Call Your Surgeon About: If the incisions become red, have continuous drainage, smell foul, or if you develop persistent fevers (greater than 100.4 F degrees) vomiting, or diarrhea, shortness of breath or calf pain; call your surgeons office. There is always someone available [phone]. documented in this encounter Medications at Time [...] Notes * Becki Martins RN - 01/02/2014 0334 EDT Pt A&O states pain is tolerable. [...] documented in this encounter Nursing Notes * TRANSFUSION NURSE, SCAN 2 - 01/07/2014 1142 EDT documented in this encounter OR Notes * OR PreOp - TRANSFUSION NURSE, SCAN 2 - 01/07/2014 1142 EDT * [...] clavicle excision. SURGEON: Agusto Howell III, MD RAMP SERVICE AGENT: Yumiko Harmon PA-C (There were no orthopedic [...] utilized to support the arm. Using a LoopNet arthroscopic pump set at 50 mmHg, lactated [...] passed in horizontal mattress fashion with an facilities maintenance assistant applying traction to the tendon back [...] events to report; however, the [employer] Truepass suture passing device was unsuccessful in [...] Agusto Pringle. Dante LOPEZ MD mn Confirmation: [id number] Dictation ID: [id number] * Anesthesia Procedure Notes - TRANSFUSION NURSE, SCAN 2 - 01/02/2014 8869 EDT * OR PreOp - TRANSFUSION NURSE, SCAN 2 - 01/02/2014 1455 EDT * Anesthesia Preprocedure Evaluation - TRANSFUSION NURSE, SCAN 2 - 01/02/2014 1149 EDT * Anesthesia Preprocedure Evaluation - TRANSFUSION NURSE, SCAN 2 - 12/16/2013 1017 EST * Anesthesia Preprocedure Evaluation - TRANSFUSION NURSE, SCAN 2 - 12/16/2013 0957 EST documented [...] 01/07/2014 11:4 2 EDT us Scan 2 Antique Collector PROCEDURE/MINOR SURGICAL OR DERABLES Final Result * IMPLANT RECORD - SCANNED (01/07/2014 11:42 EDT) 01/07/2014 11:4 2 EDT us Scan 2 Antique Collector PROCEDURE/MINOR SURGICAL OR DERABLES Final Result documented [...] states Lisinopril up to 50 mg 12/16/2013 Lvzuxew-Utgkep-Zjpybvr e (CREON 5) 124 mg (5,000- 18.7K-16K [...] 01/02/2014 documented in this encounter Care Teams Area Counselor Relationship Specialty Start Date End Date Darnell Taylor MD [address] [place] [address] PCP - General 03/02/12 07/29/19 documented as of this encounter
--- OUTSIDE RECORDS SUMMARY | 2024-11-29 00:34 | XMS_ITS | Encounter Summary ---
Author Organization [facility] Address [address] [place] [address] Care Team Providers Care Manager Business Intelligence Name Role Phone Darnell Taylor MD Primary Care Provider [phone] Encounter Details Date Type Department Care Team (Latest Contact Info) Description 11/18/2013 11:36 EST - 11/18/2013 23:59 EST Hospital Encounter [address] [place] [address] Darnell Taylor MD [address] [place] [address] Discharge Disposition: Home or Self Care Social [...] Tab by mouth daily. Reported on 10/25/2016 Tqahnmu-Kqysks-H rotease (CREON 5) 124 mg (5,000- 18.7K-16K [...] or Self [facility] documented in this encounter Plan of Treatment Not on file documented as of this encounter Visit Diagnoses Not on filedocumented in this encounter Care Teams Manager Business Intelligence Relationship Specialty Start Date End Date Darnell Taylor MD [address] [place] [address] PCP - General 03/02/12 07/29/19 documented as of this encounter
--- OUTSIDE RECORDS SUMMARY | 2024-11-29 00:34 | XMS_ITS | Encounter Summary ---
Author Organization [facility] Address [address] [place] [address] Care Team Providers Care Foundry Process Engineer Name Role Phone Darnell Taylor MD Primary Care Provider [phone] Encounter Details Date Type Department Care Team (Late st Contact Info) Description 07/04/2018 8:45 EDT - 07/04/2018 23:59 EDT Hospital Encounter [facility] - [address] [place] [address] [place] [address] [facility] [place], [place] [address] Discharge Disposition: Auto Discharge Social History Tobacco [...] on filedocumented in this encounter Care Teams Foundry Process Engineer Relationship Specialty Start Date End Date Darnell Taylor MD [address] [place] [address] PCP - General 03/02/12 07/29/19 documented as of this encounter
--- OUTSIDE RECORDS SUMMARY | 2024-11-29 00:34 | XMS_ITS | Encounter Summary ---
Author Organization [facility] Address [address] [place] [address] Care Team Providers Care Electrophysiology Technician Name Role Phone Darnell Taylor MD Primary Care Provider [phone] Encounter Details Date Type Department Care Team (Latest Contact Info) Description 06/04/2015 10:37 EDT - 06/04/2015 10:38 EDT Hospital Encounter [facility] [address] [place] [address] Darnell Taylor MD [address] [place] [address] Discharge Disposition: Home or Self Care Social [...] on filedocumented in this encounter Care Teams Electrophysiology Technician Relationship Specialty Start Date End Date Darnell Taylor MD [address] [place] [address] PCP - General 03/02/12 07/29/19 documented as of this encounter
--- OUTSIDE RECORDS SUMMARY | 2024-11-29 00:35 | XMS_ITS | Encounter Summary ---
Author Organization [facility] Address [address] [place] [address] Care Team Providers Care Public Health Name Role Phone Zhao Taylor MD Primary Care Provider [phone] Reason for Visit * Reason Comments Follow-up Encounter Details Date Type Department Care Team (Late st Contact Info) Description 08/27/2012 14:00 EST Office Visit [facility] Adult Neurology - [address] [address] Paul Bran MD [address] [place] [address], [address] [place] [address] Postconcussive syndrome (Primary Dx) Discharge [...] syndrome documented in this encounter Care Teams Public Health Relationship Specialty Start Date End Date Zhao Taylor MD [address] [place] [address] PCP - General 03/02/12 07/29/19 documented as of this encounter
--- OUTSIDE RECORDS SUMMARY | 2024-11-29 00:35 | XMS_ITS | Encounter Summary ---
Author Organization [facility] Address [address] [place] [address] Care Team Providers Care Vaccine Specialist Name Role Phone Darnell Taylor MD Primary Care Provider [phone] Reason for Visit * Reason Comments Tick Removal left posterior wrist tick in place. Attempt to burn tick off DIRECTOR OF CATERING Encounter Details Date Type Department Care Team (Late st Contact Info) Description 08/18/2013 19:52 EST - 08/18/2013 20:24 EST Emergency [facility] Emergency Department - Main [place] [address] [place] [address] Marian Gonzalez PA-C [address] [place] [phone] Emergency, MD Lilliam Tick bite (Primary Dx) [...] Everywhere. * TICK BITE: AFTER YOUR VISIT (NEW ZEALANDER) documented in this encounter Medications at Time of Discharge aspirin 81 mg EC tablet Take 81 mg by mouth at bedtime. Reported on 10/25/2016 Multivitamins with Minerals Tab Take 1 Tab by mouth daily. Reported on 10/25/2016 Fubkovi-Adrbdh-E rotease (CREON 5) 124 mg (5,000- 18.7K-16K [...] in place. Attempt to burn tick off DIRECTOR OF CATERING The patient is a 67 y.o. male who presents today with Tick Removal HPI Comments: The patient is a 67 year old male here with his significant other who reports he noticed a tick on his left forearm tonight while out to dinner. The crew leader/control room operator at dinner attempted to burn the tick with a material analyst which did not work. The patient reports [...] to verify the correct patient, procedure, equipment, learning support services director and site/side marked as required, Intake: L [...] these medications which have NOT CHANGED Details Rivlryr-Jsoqkz-Fegfsjzt (CREON 5) 124 mg (5,000- 18.7K-16K unit) [...] FOREIGN BODY REMOVAL (08/18/2013 20:43 EST) Narrative [facility] EKG - 08/18/2013 20:43 EST Marian Gonzalez PA ? 08/18/2013 20:43 DOS: 08/18/2013 Chief Complaint Patient presents with ? ? Tick Removal ??left posterior wrist tick in place. Attempt to burn tick off DIRECTOR OF CATERING The patient is a 67 y.o. male who presents today with Tick Removal HPI Comments: The patient is a 67 year old male here with his significant other who reports he noticed a tick on his left forearm tonight while out to dinner. The crew leader/control room operator at dinner attempted to burn the tick with a material analyst which did not work. The patient reports [...] to verify the correct patient, procedure, equipment, learning support services director and site/side marked as required, Intake: L [...] these medications which have NOT CHANGED Details Rtukarj-Qhciox-Xlkkkknq (CREON 5) 124 mg (5,000- 18.7K-16K unit) [...] in place. Attempt to burn tick off DIRECTOR OF CATERING The patient is a 67 y.o. male who presents today with Tick Removal HPI Comments: The patient is a 67 year old male here with his significantother who reports he noticed a tick on his left forearm tonight while outto dinner. The crew leader/control room operator at dinner attempted to burn the tick [...] called to verifythe correct patient, procedure, equipment, learning support services director and site/sidemarked as required, Intake: L forearm. [...] these medications which have NOT CHANGED Details Istjfmc-Wjlkth-Hegwbvef (CREON 5) 124 mg (5,000- 18.7K-16K unit) [...] documented as of this encounter Care Teams Vaccine Specialist Relationship Specialty Start Date End Date Darnell Taylor MD [address] [place] [address] PCP - General 03/02/12 07/29/19 documented as of this encounter
--- OUTSIDE RECORDS SUMMARY | 2024-11-29 00:35 | XMS_ITS | Encounter Summary ---
Author Organization [facility] Address [address] [place] [address] Care Team Providers Care Senior Mechanical Design Engineer Name Role Phone Darnell Taylor MD Primary Care Provider [phone] Reason for Visit * Reason Onset Date Comments Pharmacy 01/18/2013 Encounter Details Date Type Department Care Team (Late st Contact Info) Description 01/18/2013 Telephone [facility] Cardiology - [address] [address] Nile Quinn MD [address] [facility] [address] [place] [address] Pharmacy Social History Tobacco Use [...] filedocumented in this encounter Care Teams Senior Mechanical Design Engineer Relationship Specialty Start Date End Date Darnell Taylor MD [address] [place] [address] PCP - General 03/02/12 07/29/19 documented as of this encounter
--- OUTSIDE RECORDS SUMMARY | 2024-11-29 00:35 | XMS_ITS | Encounter Summary ---
Author Organization [facility] Address [address] [place] [address] Care Team Providers Care Cartography Supervisor Name Role Phone Darnell Taylor MD Primary Care Provider [phone] Reason for Referral * Vascular Lab (Routine/Next Available) - Closed Specialty Diagnoses / Procedures Referred By Nelia sanford Referred To Contact Diagnoses Abdominal pain, unspecified site Procedures VL MESENTERIC ARTERY DUPLEX Agusto Morris MD Referral ID Status Reason Start Date Expiration Date Visits Re quested Visits Authorized [id number] Closed 01/24/2013 1 1 Reason for Visit * Reason Comments Abdominal Pain New patient visit Encounter Details Date Type Department Care Team (Latest Contact Info) Description 01/24/2013 8:40 EDT Office Visit [facility] Gastroenterology - [facility] [place] [address] [place], [place] [address] Dalton Cross MD Abdominal pain, unspecified site [...] Take 1 Tab by mouth daily. ??? Ehvtzjg-Wslsre-Xjulwwyn (CREON 5) 124 mg (5,000- 18.7K-16K unit) [...] using 2D, color flow and spectral Dopper. 44111. ? INDICATION: Abdominal pain. ? HISTORY: ?HPT, [...] using 2D, color flow and spectral Dopper. 84148. INDICATION: Abdominal pain. HISTORY: HPT, [facility]. PULSE WAVE DOPPLER FINDINGS Aorta Prox:Sys: 116 cm/sec Giuliana: 16 cm/sec SMA Prox: Sys: 137 cm/sec Guiliana: 17 cm/sec SMA Mid: Sys: 178 cm/sec [...] pain documented in this encounter Care Teams Cartography Supervisor Relationship Specialty Start Date End Date Darnell Taylor MD [address] [place] [address] PCP - General 03/02/12 07/29/19 documented as of this encounter
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
--- OUTSIDE RECORDS SUMMARY | 2024-11-29 00:35 | XMS_ITS | Encounter Summary ---
Author Organization [facility] Address [address] [place] [address] Care Team Providers Care Rfid Manager Name Role Phone Darnell Taylor MD Primary Care Provider [phone] Encounter Details Date Type Department Care Team (Latest Contact Info) Description 09/10/2013 10:40 EST - 09/10/2013 23:59 EST Hospital Encounter [facility] [address] [place] [address] Darnell Taylor MD [address] [place] [id number] Discharge Disposition: Auto Discharge Social History Tobacco [...] Tab by mouth daily. Reported on 10/25/2016 Pgjzrlx-Zjgtga-G rotease (CREON 5) 124 mg (5,000- 18.7K-16K [...] with its distal stump retracted beyond the boqbm-ql-ghoy and an empty bicipital groove sign present. [...] with the distal stump retracted beyond the mrons-yr-lvpx and an empty bicipital groove. 5. A [...] with its distal stump retracted beyond the rqdvf-de-brlb and an empty bicipital groove sign present. [...] with the distal stump retracted beyond the xbwpn-hg-hzgg and an empty bicipital groove. 5. A [...] on filedocumented in this encounter Care Teams Rfid Manager Relationship Specialty Start Date End Date Darnell Taylor MD [address] [place] [address] PCP - General 03/02/12 07/29/19 documented as of this encounter
--- OUTSIDE RECORDS SUMMARY | 2024-11-29 00:35 | XMS_ITS | Encounter Summary ---
Author Organization [facility] Address [address] [place] [address] Care Team Providers Care Tenoner Operator Name Role Phone None, Provider Primary Care Provider Unavailabl e Reason for Visit * Reason Onset Date Comments Appointment Related 02/22/[address] for 03/02 ckin 11am for an 11:30 at [facility] Encounter Details Date Type Department Care Team (Late st Contact Info) Description 02/22/[address] [facility] Neurology - [address] [address] Alyson Harden MD [address] [place] [address] [place] [address] Appointment Related (lft msg with CT for 03/02 ckin 11am for an 11:30 at [facility]) Social History Tobacco Use Types Packs/Day Years [...] Telephone Encounter - Mary Prince - 02/22/2012 0900 EDT lft msg with CT for 03/02 ckin 11am for an 11:30 at [facility] documented in this encounter Plan of Treatment Not on file documented as of this encounter Visit Diagnoses Not on filedocumented in this encounter Care Teams Tenoner Operator Relationship Specialty Start Date End Date None, Provider PCP - General 12/16/11 03/01/12 documented as of this encounter
--- OUTSIDE RECORDS SUMMARY | 2024-11-29 00:35 | XMS_ITS | Encounter Summary ---
Author Organization [facility] Address [address] [place] [address] Care Team Providers Care Garage Hand Name Role Phone Darnell Taylor MD Primary Care Provider [phone] Encounter Details Date Type Department Care Team (Latest Contact Info) Description 03/02/2012 11:07 EDT - 03/02/2012 23:59 EDT Hospital Encounter [facility] [address] [place] [address] All Carmichael MD [address] [place] [address], [address] [place] [address] Discharge Disposition: Home or Self [...] Code Departure Means Destination Home or Self Alf documented in this encounter Plan of Treatment Not on file documented as of this encounter Visit Diagnoses Not on filedocumented in this encounter Care Teams Garage Hand Relationship Specialty Start Date End Date Darnell Taylor MD [address] [place] [address] PCP - General 03/02/12 07/29/19 documented as of this encounter
--- OUTSIDE RECORDS SUMMARY | 2024-11-29 00:35 | XMS_ITS | Encounter Summary ---
Author Organization [facility] Address [address] [place] [address] Care Team Providers Care Admissions Assistant Name Role Phone Darnell Taylor MD Primary Care Provider [phone] Encounter Details Date Type Department Care Team (Late st Contact Info) Description 03/13/2013 8:30 EDT - 03/13/2013 23:59 EDT Hospital Encounter [facility] Pulmonary Function Lab - [facility] [address] [place], [place] [id number] Darnell Taylor MD [address] [place], [place] [phone] Gamaliel Morrow MD [address] [place], [place] [id number] Discharge Disposition: Auto Discharge Social History Tobacco [...] Tab by mouth daily. Reported on 10/25/2016 Qjtjcqf-Dkqwaa-Q rotease (CREON 5) 124 mg (5,000- 18.7K-16K [...] EDT Testing was performed and recorded in [employer]. See complete report in scanned documents. documented in this encounter Procedure Notes * MANAGER AUDIT, EDWARDO 2 - 03/18/2013 0734 EDTAssociated Order(s): ORDERS - SCANNED documented in this encounter Plan of Treatment Not on file documented as of this encounter Procedures Procedure Name Priority Date/Time Associated Diagnosis Comments ORDERS - SCANNED 03/18/2013 7:34 EDT documented in this encounter Results * ORDERS - SCANNED (03/18/2013 7:34 EDT) 03/18/2013 7:34 EDT Narrative 03/18/2013 7:55 EDT Procedure Note MANAGER AUDIT, EDWARDO 2 - 03/18/2013 7:34 EDT us Scan 2 Food Management Aide ADMISSION ORDERABLES Final Result documented in this [...] 03/13/2013 documented in this encounter Care Teams Admissions Assistant Relationship Specialty Start Date End Date Darnell Taylor MD [address] [place] [address] PCP - General 03/02/12 07/29/19 documented as of this encounter
--- OUTSIDE RECORDS SUMMARY | 2024-11-29 00:35 | XMS_ITS | Encounter Summary ---
Author Organization [facility] Address [address] [place] [address] Care Team Providers Care Law Enforcement Director Name Role Phone Darnell Taylor MD Primary Care Provider [phone] Encounter Details Date Type Department Care Team (Latest Contact Info) Description 08/08/2013 16:56 EDT - 08/08/2013 23:[address] [facility] [address] [place] [address] Darek Barry, DO [address] [place] [address] Discharge Disposition: Home or Self [...] Tab by mouth daily. Reported on 10/25/2016 Qiqyvrk-Qahysw-U rotease (CREON 5) 124 mg (5,000- 18.7K-16K [...] Code Departure Means Destination Home or Self Mcfp documented in this encounter Plan of Treatment [...] symphysis noted as well. Darek Barry DO [facility] ORDERABLES Final Result * CERVICAL [...] alignment within normal limits. Darek Barry DO [facility] ORDERABLES Final Result documented in this encounter Visit Diagnoses Not on filedocumented in this encounter Care Teams Law Enforcement Director Relationship Specialty Start Date End Date Darnell Taylor MD [address] [place] [address] PCP - General 03/02/12 07/29/19 documented as of this encounter
--- OUTSIDE RECORDS SUMMARY | 2024-11-29 00:35 | XMS_ITS | Encounter Summary ---
Author Organization [facility] Address [address] [place] [address] Care Team Providers Care Candy Feeder Name Role Phone Darnell Taylor MD Primary Care Provider [phone] Reason for Visit * Reason Onset Date Comments Follow-up 01/11/2013 Encounter Details Date Type Department Care Team (Late st Contact Info) Description 01/11/2013 Telephone [facility] Cardiology - [address] [place] [address] Rita Ferrari, SOCIAL MEDIA CAMPAIGN MANAGER [address] [facility], Level [address] [place] [address] Follow-up Social History Tobacco Use [...] on filedocumented in this encounter Care Teams Candy Feeder Relationship Specialty Start Date End Date Darnell Taylor MD [address] [place] [address] PCP - General 03/02/12 07/29/19 documented as of this encounter
--- OUTSIDE RECORDS SUMMARY | 2024-11-29 00:35 | XMS_ITS | Encounter Summary ---
Author Organization [facility] Address [address] [place] [address] Care Team Providers Care Systems Management Consultant Name Role Phone Darnell Taylor MD Primary Care Provider [phone] Darnell Taylor MD Primary Care Provider [phone] Lasha Angelo MD Primary Care Provider [phone] Sangita Nolasco MD Primary Care Provider [phone] Encounter Details Date Type Department Care Team (Late st Contact Info) Description 03/09/2012 Telephone [facility] Neurology - [place] [address] [place] [phone] Alyson Harden MD [address] [place] [address] DR TEJ[address] [place], [place] [id number] Social History Tobacco Use Types Packs/Day Years [...] documented as of this encounter Care Teams Systems Management Consultant Relationship Specialty Start Date End Date Darnell Taylor MD [address] [place] [address] PCP - General 03/02/12 07/29/19 Darnell Taylor MD [address] [place] [address] PCP - General 07/30/19 01/08/20 Lasha Angelo MD [address] [place] [address] PCP - General Family Medicine - Primary Care 01/09/20 06/23/21 Sangita Nolasco MD [address] [place] [address] PCP - General 06/24/21 documented as of this encounter
--- OUTSIDE RECORDS SUMMARY | 2024-11-29 00:35 | XMS_ITS | Encounter Summary ---
Author Organization [facility] Address [address] [place] [address] Care Team Providers Care Plate Cleaner Name Role Phone Darnell Taylor MD Primary Care Provider [phone] Encounter Details Date Type Department Care Team (Late st Contact Info) Description 10/10/2013 7:16 EST - 10/10/2013 23:59 EST Hospital Encounter [address] [address] Ruthy Arreguin, PA-C [address] [place] [address], [address] [place] [phone] Discharge Disposition: Home or Self Care Social [...] Tab by mouth daily. Reported on 10/25/2016 Dbkhopx-Dpxnxc-G rotease (CREON 5) 124 mg (5,000- 18.7K-16K [...] Code Departure Means Destination Home or Self [place] documented in this encounter Plan of Treatment [...] on filedocumented in this encounter Care Teams Plate Cleaner Relationship Specialty Start Date End Date Darnell Taylor MD [address] [place] [address] PCP - General 03/02/12 07/29/19 documented as of this encounter
--- OUTSIDE RECORDS SUMMARY | 2024-11-29 00:35 | XMS_ITS | Encounter Summary ---
Author Organization [facility] Address [address] [place] [address] Care Team Providers Care Student Services Director Name Role Phone Darnell Taylor MD Primary Care Provider [phone] Encounter Details Date Type Department Care Team ([facility] st Contact Info) Description 08/22/2013 Results Only [facility] Laboratory Services - [facility] ([facility]) [address] [place], [place] [address] Darnell Taylor MD [address] [place], [place] [phone] Social History Tobacco Use Types Packs/Day Years [...] ORDERABLE S Final Result Performing Organization Address [facility] de Phone Number [facility] [address] [place] [address] * IBC (08/22/2013 16:58 EST) TIBC 318 261 - 462 ug/dl [facility] 08/22/2013 16:5 8 EST 08/22/2013 18:34 EST Darnell Taylor MD CHEMISTRY & BLOOD GAS ORDERABLE S Final Result Performing Organization Address [facility] Phone Number [facility] [address] [place] [address] * FERRITIN (08/22/2013 16:58 EST) Ferritin 160 22 - 322 ng/mL [facility] 08/22/2013 16:5 8 EST 08/22/2013 18:34 EST Darnell Taylor MD CHEMISTRY & BLOOD GAS ORDERABLE S Final Result Performing Organization Address [facility] Phone Number [facility] [address] [place] [address] documented in this encounter Visit Diagnoses Not on filedocumented in this encounter Care Teams Student Services Director Relationship Specialty Start Date End Date Darnell Taylor MD [address] [place] [address] PCP - General 03/02/12 07/29/19 documented as of this encounter
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
--- OUTSIDE RECORDS SUMMARY | 2024-11-29 00:35 | XMS_ITS | Encounter Summary ---
Author Organization [facility] Address [address] [place] [address] Care Team Providers Care Privacy Attorney Name Role Phone Hua Blanton MD Primary Care Provider Unava ilable Encounter Details Date Type Department Care Team (Late st Contact Info) Description 05/30/2011 Results Only [facility] Laboratory Services - [facility] ([facility]) [address] [place] [address] Hua Blanton MD Social History Tobacco Use [...] absence of malignant disease. ?? Assayed utilizing [employer] chemiluminescent technology. Values obtained by using different assay methods cannot be used interchangeably. 05/30/2011 14:3 0 EDT 05/30/2011 18:39 EDT Hua Blanton MD CHEMISTRY & BLOOD GAS ORDERA BLES Final Result Performing Organization Address [facility] de Phone Number [facility] [address] [place] [address] * LIPID PROFILE (INCLUDES CHOLESTEROL, TRIGLYCERIDES, HDL, LDL) (05/30/2011 14:30 EDT) Cholesterol 198 mg/dl [facility] Comment:Desirable:<200 Borde rline High:200-239 High:>li=619 Triglycerides 133 35 - 160 mg/dl [facility] HDL 65 mg/dl [facility] Comment:Low:<40 High(Desirab le):>or=60 LDL, Calculated 106 mg/dl [facility] Comment: Optimal:<100 Above optimal:100-129 Borderline High:130-159 High:160-189 Very High:>ul=007 Chol/HDL Ratio 3.0 LIN[facility] Fasting? No [facility] 05/30/2011 14:3 0 EDT 05/30/2011 18:39 EDT Hua Blanton MD CHEMISTRY & BLOOD GAS ORDERA BLES Final Result Performing Organization Address [facility] de Phone Number [facility] [address] [place] [address] * COMPREHENSIVE METABOLIC PANEL (CMP) (05/30/2011 14:30 [...] ALT 36 21 - 72 U/L [facility] Albumin 4.3 3.4 - 4.9 g/dl [...] BLES Final Result [facility] [address] [place] [address] * (ABNORMAL) HEMAGRAM (05/30/2011 14:30 EDT) WBC [...] PF4 ORDERABLES Final Result Performing Organization Address City/State/[facility] Co de Phone Number [facility] [address] [place] [address] documented in this encounter Visit Diagnoses Not on filedocumented in this encounter Care Teams Privacy Attorney Relationship Specialty Start Date End Date Hua Blanton MD PCP - General 03/12/09 12/15/11 documented as of this encounter
--- OUTSIDE RECORDS SUMMARY | 2024-11-29 00:35 | XMS_ITS | Encounter Summary ---
Author Organization [facility] Address [address] [place] [address] Care Team Providers Care Police Reserves Commander Name Role Phone Darnell Taylor MD Primary Care Provider [phone] Reason for Visit * Reason Onset Date Comments Letter for School/Work 01/22/2013 Encounter Details Date Type Department Care Team (Late st Contact Info) Description 01/22/2013 Telephone [facility] Cardiology - [address] [address] Nile Quinn MD [address] [place] [address] [address] [place] [address] Letter for School/Work Social History [...] Encounter - Jazmin Daniel NP - 01/23/2013 0906 EDT S been written for return to work. * Telephone Encounter - Crystal Scott - 01/22/2013 1547 EDT The patient had a procedure done yesterday and needs a letter to return to work on . documented in this encounter Plan of Treatment Not on file documented as of this encounter Visit Diagnoses Not on filedocumented in this encounter Care Teams Police Reserves Commander Relationship Specialty Start Date End Date Darnell Taylor MD [address] [place] [address] PCP - General 03/02/12 07/29/19 documented as of this encounter
--- OUTSIDE RECORDS SUMMARY | 2024-11-29 00:35 | XMS_ITS | Encounter Summary ---
Author Organization [facility] Address [address] [place] [address] Care Team Providers Care Bar Pointer Name Role Phone Darnell Taylor MD Primary Care Provider [phone] Encounter Details Date Type Department Care Team (Late st Contact Info) Description 08/05/2013 Results Only [facility] Laboratory Services - [facility] ([facility]) [address] [place], [place] [address] Darek Barry, DO [address] [place] [address] Social History Tobacco Use Types [...] O RDERABLES Final Result Performing Organization Address [facility] de Phone Number [facility] [address] [place] [address] * MAGNESIUM (08/05/2013 19:10 EDT) Pathologist [facility] Department Magnesium 1.7 1.7 - 2.8 mg/dl [facility] 08/05/2013 19:1 0 EDT 08/05/2013 21:28 EDT Darek Barry DO CHEMISTRY & BLOOD GAS O RDERABLES Final Result Performing Organization Address [facility] Co de Phone Number [facility] [address] [place] [address] * CK (08/05/2013 19:10 EDT) CK 118 0 - 250 U/L [facility] 08/05/2013 19:1 0 EDT 08/05/2013 21:28 EDT Darek Barry DO CHEMISTRY & BLOOD GAS O RDERABLES Final Result Performing Organization Address [facility] Co de Phone Number [facility] [address] [place] [address] * (ABNORMAL) HEMAGRAM (08/05/2013 19:10 EDT) WBC [...] BLES Final Result [facility] [address] [place] [address] * BASIC METABOLIC PANEL (08/05/2013 19:10 EDT) Pathologist [facility] Emergency Department Sodium 141 136 - 145 mEq/L [facility] [...] O RDERABLES Final Result Performing Organization Address [facility] de Phone Number [facility] [address] [place] [address] * VITAMIN B12 (08/05/2013 19:10 EDT) Vitamin B-12 380 211 - 911 pg/ml [facility] 08/05/2013 19:1 0 EDT 08/05/2013 21:28 EDT Darek Barry DO CHEMISTRY & BLOOD GAS O RDERABLES Final Result Performing Organization Address [facility] de Phone Number [facility] [address] [place] [address] documented in this encounter Visit Diagnoses Not on filedocumented in this encounter Care Teams Bar Pointer Relationship Specialty Start Date End Date Darnell Taylor MD [address] [place] [address] PCP - General 03/02/12 07/29/19 documented as of this encounter
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
--- OUTSIDE RECORDS SUMMARY | 2024-11-29 00:35 | XMS_ITS | Encounter Summary ---
Author Organization [facility] Address [address] [place] [address] Care Team Providers Care Die Repairer Trimmer Dies Name Role Phone Darnell Taylro MD Primary Care Provider [phone] Reason for Visit * Reason Onset Date Comments Returning Call 01/10/[address] Quinn Encounter Details Date Type Department Care Team (Late st Contact Info) Description 01/10/2013 Telephone [facility] Cardiology - [address] [place] [address] Nile Quinn MD [address] [place] [address] [address] [place] [address] Returning Call (from Dr Quinn) [...] Encounter - Jazmin Daniel NP - 01/10/2013 4906 EDT Pt told he had an abnormal stress test which could predict blockages in his heart. He was given theoption of a stress test or LHC. He will discuss it with his and get back to me. He will start the beta charmaine tomorrow * Telephone Encounter - Jennifer Psoadas. - 01/10/2013 1329 EDT Patient returning a call from Dr Quinn regarding a stress test. documented in this encounter Plan of Treatment Not on file documented as of this encounter Visit Diagnoses Not on filedocumented in this encounter Care Teams Die Repairer Trimmer Dies Relationship Specialty Start Date End Date Darnell Taylor MD [address] [place] [address] PCP - General 03/02/12 07/29/19 documented as of this encounter
--- OUTSIDE RECORDS SUMMARY | 2024-11-29 00:35 | XMS_ITS | Encounter Summary ---
Author Organization [facility] Address [address] [place] [address] Care Team Providers Care Winding Inspector Name Role Phone Darnell Taylor MD Primary Care Provider [phone] Reason for Visit * Reason Comments Cardiac Testing Encounter Details Date Type Department Care Team (Late st Contact Info) Description 01/09/2013 14:00 EDT Procedure visit [facility] Cardiology - [address] [place] [address] Nile Quinn MD [address] [place] [address] [address] [place] [address] Nuria Carbone Social History Tobacco [...] as of this encounter Procedure Notes * TORCH STRAIGHTENER AND HEATER, SCAN 2 - 01/10/2013 1420 EDTAssociated Order(s): [...] EDT Narrative 01/10/2013 14:28 EDT Procedure Note TORCH STRAIGHTENER AND HEATER, SCAN 2 - 01/10/2013 14:20 EDT us Scan 2 Splunk Architect IMG OTHER IMAGING ORDERABLE S Final Result documented in this encounter Visit Diagnoses Not on filedocumented in this encounter Care Teams Winding Inspector Relationship Specialty Start Date End Date Darnell Taylor MD [address] [place] [address] PCP - General 03/02/12 07/29/19 documented as of this encounter
--- OUTSIDE RECORDS SUMMARY | 2024-11-29 00:35 | XMS_ITS | Encounter Summary ---
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 Seen at [facility], see Tcall. Encounter Details Date Type Department Care Team (Late st Contact Info) Description 08/14/2012 18:26 EDT - 08/14/2012 21:50 EDT Emergency [facility] Emergency Department - [facility] [address] [place] [address] Liliana Win MD PhD [address] [facility], [address] [place] [address] Emergency, MD Lilliam Abdominal pain, [...] encounter Discharge Instructions * Discharge Instructions* Liliana Wni MD - 08/14/2012 21:36 EDT Return to the ED for any worsening symptoms or new concerns * Attachments The following attachments cannot be sent through Care Everywhere. 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 Seen at [facility], see Tcall. The patient is a [...] encounter Miscellaneous Notes * Scanned Note-Null - TEACHER VISUALLY IMPAIRED, SCAN 2 - 08/16/2012 7506 EDT documented in this encounter Plan of [...] % Monocytes 6.0 1.8 - 12.0 % [facility] % Eosinophils 2.6 0.6 - 6.9 % [facility] % Basophils 0.4 0.2 - 1.4 % [facility] ABS Neutrophils 3.31 2.20 - 8.85 K/cmm [facility] ABS Lymphs 1.44 1.09 - 3.30 K/cmm [facility] ABS Monocytes 0.31 0.1 - 0.8 K/cmm [facility] ABS Eosinophils 0.13 0.03 - 0.61 K/cmm [facility] ABS Basophils 0.02 0.01 - 0.11 K/cmm [facility] Type of Diff: Automated [facility] 08/14/2012 19:1 6 EDT 08/14/2012 19:26 EDT Liliana Win MD PhD HEMATOLOGY & PF4 ORDERABLES Final Result Performing Organization Address City/[facility] Co de Phone Number [facility] [address] [place] [address] * (ABNORMAL) HEMAGRAM (08/14/2012 19:16 EDT) Pathologist [facility] WBC 5.21 4.0 - 10.4 K/cmm [facility] [...] PF4 ORDERABLES Final Result Performing Organization Address City/[facility]/ZIP Co de Phone Number [facility] [address] [place] [address] * LIPASE (08/14/2012 19:16 EDT) Lipase 245 0 - 250 U/L [facility] Blood specimen (specimen) 08/14/2012 19:16 EDT 08/14/2012 19:26 EDT Liliana Win MD PhD CHEMISTRY & BLOOD GAS ORDER CAITLYN Final Result Performing Organization Address City/[facility]/ZIP Co de Phone Number [facility] [address] [place] [address] * COMPREHENSIVE METABOLIC PANEL (CMP) (08/14/2012 19:16 [...] ALT 40 21 - 72 U/L [facility] Albumin 4.1 3.4 - 4.9 g/dl [...] ORDER CAITLYN Final Result Performing Organization Address City/[facility]/ZIP Co de Phone Number [facility] [address] [place] [address] documented in this encounter Visit Diagnoses Diagnosis [...] 08/14/2012 documented in this encounter Care Teams Shrimp Pond Laborer Relationship Specialty Start Date End Date Zhao Taylor MD [address] [place] [address] PCP - General 03/02/12 07/29/19 documented as of this encounter
--- OUTSIDE RECORDS SUMMARY | 2024-11-29 00:35 | XMS_ITS | Encounter Summary ---
Author Organization [facility] Address [address] [place] [address] Care Team Providers Care Casino Runner Name Role Phone Darnell Taylor MD Primary Care Provider Encounter Details Date Type Department Care Team ([facility] st Contact Info) Description 12/25/2012 Results Only Imaging [facility]- [facility] [phone] Darnell Taylor MD [address] [place] [address] Social History Tobacco Use Types Packs/Day Years [...] of focal fatty sparing.. Darnell Taylor MD [facility] [place] ORDERABLES Final Result documented in this encounter Visit Diagnoses Not on filedocumented in this encounter Care Teams Casino Runner Relationship Specialty Start Date End Date Darnell Taylor MD [address] [place] [address] PCP - General 03/02/12 07/29/19 documented as of this encounter
--- OUTSIDE RECORDS SUMMARY | 2024-11-29 00:35 | XMS_ITS | Encounter Summary ---
Author Organization Health system Address [address] [place] [address] Care Team Providers Care Tank Farm Gauger Name Role Phone Hua Blanton MD Primary Care Provider Unava ilable Encounter Details Date Type Department Care Team (Latest Contact Info) Description 05/30/2011 13:07 EDT - 05/30/2011 13:08 EDT Hospital Encounter [facility] - [address] [address] Hua Blanton MD Discharge Disposition: Home or [...] on filedocumented in this encounter Care Teams Tank Farm Gauger Relationship Specialty Start Date End Date Hua Blanton MD PCP - General 03/12/09 12/15/11 documented as of this encounter
--- OUTSIDE RECORDS SUMMARY | 2024-11-29 00:35 | XMS_ITS | Encounter Summary ---
Author Organization [facility] Address [address] [place] [address] Care Team Providers Care Steel Box Toe Inserter Name Role Phone Zhao Taylor MD Primary Care Provider [phone] Reason for Referral * Cardiology (Routine/Next Available) - Closed Specialty Diagnoses / Procedures Referred By Nelia sanford Referred To Contact Diagnoses Chest pain Procedures LEFT HEART CATH Jazmin Oconnor NP Phone: tel: fax: Referral ID Status Reason Start Date Expiration Date Visits Re quested Visits Authorized [id number] Closed 01/11/2013 1 1 Reason for Visit * Reason Onset Date Comments Chest Pain 01/11/2013 Encounter Details Date Type Department Care Team (Late st Contact Info) Description 01/11/2013 Orders Only [facility] Cardiology - [address] [place] [facility] [place] [address] Jazmin Oconnor NP [address] [facility] [address] [place] [phone] Chest pain (Primary Dx) Social History Tobacco [...] 10:0 1 EDT Narrative 01/22/2013 16:32 EDT ?[facility] ? Nuria [facility] ??[place] [address] ? [phone] ? [email or web address] ?Final Diagnostic Cardiovascular Catheterization Report ?--- SUMMARY [...] 173cm ?Weight: 83.9kg ?BSA: 1.98 Allergies: ??NKA Pre-Custom Miller Values: ??HCT: 42.4 ?Platelets: 213.0 ?Creatinine:.8 ? [...] Procedure Note Nile Quinn MD - 01/22/2013 [facility] [place] [address] [phone] [email or web address] Final Diagnostic Cardiovascular Catheterization Report --- SUMMARY [...] Height: 173cm Weight: 83.9kg BSA:1.98 Allergies: NKA Pre-Custom Miller Values: HCT: 42.4 Platelets: 213.0 Creatinine:.8 --- [...] Physician: JAZMIN OCONNOR NP Referring Physician 2: HZAO TAYLOR Diagnostic Attending: Nile Quinn MD Diagnostic [...] unspecified documented in this encounter Care Teams Steel Box Toe Inserter Relationship Specialty Start Date End Date Zhao Taylor MD [address] [place] [address] PCP - General 03/02/12 07/29/19 documented as of this encounter
--- OUTSIDE RECORDS SUMMARY | 2024-11-29 00:35 | XMS_ITS | Encounter Summary ---
Author Organization [facility] Address [address] [place] [address] Care Team Providers Care Process Artist Name Role Phone Zhao Parada MD Primary Care Provider [phone] Encounter Details Date Type Department Care Team (Latest Contact Info) Description 01/21/2013 7:25 EDT - 01/21/2013 19:45 EDT Hospital Encounter [facility] Cardiovascular Unit [address] [place] [address] Nile Quinn MD [address] [place] [address] [address] [place] [address] Discharge Disposition: Home or Self [...] your Procedure was performed by Dr. Quinn ([phone]). You have had a Cardiovascular Catheterization performed [...] Tab by mouth daily. Reported on 10/25/2016 Oebydly-Izbisl-P rotease (CREON 5) 124 mg (5,000- 18.7K-16K [...] 1325 stepped out. OOB to chair with BALANCING MACHINE OPERATOR. Post procedure instructions given; reviewed with pt. Signed copy with chart. mm 1345 Walked to BR; voided. 1355 IV dc'd intact. mm 1400 Discharged via wheelchair with . [place]. WINDOW CUTTER Cosigned by Dilia Callejas RN at 01/21/2013 14:26 EDT * Andressa Rutledge RN - 01/21/2013 0841 EDT Barrett Ngo arrived to the Cardiovascular Unit via ambulatory. Patient identified per [facility] policy and oriented to Unit. Reviewed pre-procedure instructions with Barrett Ngo. Patient 4/10 chest pressure pain. Discussed history, med list, allergies, NPO, sedation,& procedure information. All questions answered & patient verbalizes understanding. Pre-cath prep completed. Stretcher in low position with side rails up & call hsu within patient reach. Patient's family is at bedside. Post procedure warehouse delivery driver is spouse. He has received 1 [...] Take 1 Tab by mouth daily. ??? Yhkuuuy-Shukkj-Srvczbfq (CREON 5) 124 mg (5,000- 18.7K-16K unit) [...] family hx CAD and HTN Plan : [facility]. On plavix. No contraindication to DAPT, no bleeding hx or allergy to contrast Whitney Gr MD 01/21/2013 9:23 Pt known to me from clinic where concerning CP and equivocal ETT. Appropriate for cath for better definition of possible CAD. documented in this encounter Procedure Notes * PATIENT REGISTRATION MANAGER, SCAN 2 - 01/28/2013 0851 EDTAssociated Order(s): PROCEDURE REPORTS - SCANNED * PATIENT REGISTRATION MANAGER, SCAN 2 - 01/28/2013 0851 EDTAssociated Order(s): CARDIAC CATHERIZATION REPORT - SCANNED * PATIENT REGISTRATION MANAGER, SCAN 2 - 01/25/2013 0839 EDTAssociated Order(s): [...] artery Procedure: He was brought to the [facility] Cardiac Catheterization Laboratory for the [...] encounter Miscellaneous Notes * Scanned Note-Null - PATIENT REGISTRATION MANAGER, SCAN 2 - 01/28/2013 0851 EDT * Scanned Note-Null - PATIENT REGISTRATION MANAGER, SCAN 2 - 01/28/2013 0851 EDT * Scanned Note-Null - PATIENT REGISTRATION MANAGER, SCAN 2 01/28/2013 0851 EDT * Scanned Note-Null - PATIENT REGISTRATION MANAGER, SCAN 2 01/28/2013 0851 EDT * Scanned Note-Null - PATIENT REGISTRATION MANAGER, SCAN 2 - 01/21/2013 0728 EDT * Scanned Note-Null - PATIENT REGISTRATION MANAGER, SCAN 2 01/21/2013 0728 EDT * Scanned Note-Null - PATIENT REGISTRATION MANAGER, SCAN 2 - 01/21/2013 0728 EDT documented [...] EDT Narrative 01/28/2013 9:30 EDT Procedure Note PATIENT REGISTRATION MANAGER, SCAN 2 - 01/28/2013 8:51 EDT us Scan 2 Tube Former Operator PROCEDURE/MINOR SURGICAL OR DERABLES Final Result * PROCEDURE REPORTS - SCANNED (01/28/2013 8:51 EDT) 01/28/2013 8:51 EDT Narrative 01/28/2013 9:30 EDT Procedure Note PATIENT REGISTRATION MANAGER, SCAN 2 - 01/28/2013 8:51 EDT us Scan 2 Tube Former Operator PROCEDURE/MINOR SURGICAL OR DERABLES Final Result * ECG REPORT - SCANNED (01/25/2013 8:39 EDT) 01/25/2013 8:39 EDT Narrative 01/25/2013 9:15 EDT Procedure Note PATIENT REGISTRATION MANAGER, SCAN 2 - 01/25/2013 8:39 EDT us Scan 2 Tube Former Operator PROCEDURE/MINOR SURGICAL OR DERABLES Final Result * EKG 12-LEAD (01/21/2013 8:22 EDT) 01/21/2013 8:22 EDT Narrative [facility] - 01/23/2013 8:25 EDT ?[facility] ? Test Date: ?2013-01-21 Pat Name: ? BARRETT NGO ?Department: ?? CVU ? Room: ? CVU14 Gender: ? M ?Street Worker: ?? [id number] : ?1945 ? Requested By: IVANA JEFFREY MD Order Number: [id number] ?Reading : ?? WAGNER HALE MD ? Measurements Intervals ?Jackson ? Rate: ? 59 ? P: ?33 CA: ? 152 ?QRS: ?9 QRSD: ? 85 [...] Pat Name: BARRETT NGO Department: CVU Room: [facility] Gender: M Street Worker: [id number] : 1945 Requested By: IVANA JEFFREY MD Order Number: [id number] [place] MD: WAGNER HALE MD Measurements Intervals Jackson Rate: 59 P: 33 CA: 152 QRS: 9 QRSD: 85 T: 31 QT: 396 QTc: 395 Interpretive Statements SINUS BRADYCARDIA POSSIBLE RIGHT VENTRICULAR CONDUCTION DELAY MINIMAL VOLTAGE CRITERIA FOR LVH, CONSIDER NORMAL VARIANT Compared to ECG 12/14/2012 18:39:44 Sinus bradycardia now present Electronically Signed On 01-23-13 08:25:00 EDT by WAGNER HALE MD us Ivana Jeffrey MD CARDIAC ECG ORDERABLES Final R esult Performing Organization Address [facility] de Phone Number [facility] [address] [place] [address] * PTT (01/21/2013 7:48 EDT) PTT 31 26 - 37 secs [facility] Comment:Therapeutic Heparin range: 65-100 seconds Blood specimen (specimen) 01/21/2013 7:48 EDT 01/21/2013 8:14 EDT Ivana Jeffrey MD HEMATOLOGY & PF4 ORDERABLES Fi nal Result Performing Organization Address [facility] de Phone Number [facility] [address] [place] [address] * PROTIME (01/21/2013 7:48 EDT) Pro Time [...] ORDERABLES Fi nal Result Performing Organization Address City/[facility]/ZIP Co de Phone Number [facility] [address] [place] [address] * HEMAGRAM (01/21/2013 7:48 EDT) WBC 4.89 [...] ORDERABLES Fi nal Result Performing Organization Address [facility] Co de Phone Number [facility] [address] [place] [address] * CREATININE (01/21/2013 7:48 EDT) Creatinine 0.88 0.66 - 1.25 mg/dl [facility] GFR, Calculated >60 >60 ml/min/1.7 3m2 [facility] Blood specimen (specimen) 01/21/2013 7:48 EDT 01/21/2013 8:14 EDT Ivana Jeffrey MD CHEMISTRY & BLOOD GAS ORDERABL ES Final Result Performing Organization Address City/[facility] Co de Phone Number [facility] [address] [place] [address] * BUN (01/21/2013 7:48 EDT) BUN 12 10 - 26 mg/dl [facility] Blood specimen (specimen) 01/21/2013 7:48 EDT 01/21/2013 8:14 EDT Ivana Jeffrey MD CHEMISTRY & BLOOD GAS ORDERABL ES Final Result Performing Organization Address [facility] de Phone Number [facility] [address] [place] [address] * ELECTROLYTES (01/21/2013 7:48 EDT) Sodium 138 [...] ORDERABL ES Final Result Performing Organization Address [facility] Phone Number [facility] [address] [place] [address] documented in this encounter Visit Diagnoses Not [...] by mouth at bedtime. Reported on 10/25/2016 Ueccccm-Ahgkkd-W rotease (CREON 5) 124 mg (5,000- 18.7K-16K [...] 01/21/2013 documented in this encounter Care Teams Process Artist Relationship Specialty Start Date End Date Zhao Parada MD [address] [place] [address] PCP - General 03/02/12 07/29/19 documented as of this encounter
--- OUTSIDE RECORDS SUMMARY | 2024-11-29 00:35 | XMS_ITS | Encounter Summary ---
Author Organization [facility] Address [address] [place] [address] Care Team Providers Care Cigar Machine Feeder Name Role Phone Darnell Taylor MD Primary Care Provider [phone] Reason for Visit * Reason Onset Date Comments Coronary Artery Disease 01/10/2013 Encounter Details Date Type Department Care Team (Late st Contact Info) Description 01/10/2013 Orders Only [facility] Cardiology - [address] [place] [address] Jazmin Daniel, PRESS BREAKER [address] [facility], [address] [place] [address] Social History Tobacco Use Types [...] on filedocumented in this encounter Care Teams Cigar Machine Feeder Relationship Specialty Start Date End Date Darnell Taylor MD [address] [place] [address] PCP - General 03/02/12 07/29/19 documented as of this encounter
--- OUTSIDE RECORDS SUMMARY | 2024-11-29 00:35 | XMS_ITS | Encounter Summary ---
Author Organization [facility] Address [address] [place] [address] Care Team Providers Care Receptionist Airline Lounge Name Role Phone Darnell Taylor MD Primary Care Provider [phone] Reason for Visit * Reason Onset Date Comments Appointment Related 01/16/2013 Encounter Details Date Type Department Care Team (Late st Contact Info) Description 01/16/2013 Telephone [facility] Cardiology - [address] [place] [address] Jazmin Daniel, SEAN [address] [facility], [address] [place] [address] Appointment Related Social History Tobacco [...] Miscellaneous Notes * Telephone Encounter - Meenu Enrique - 01/16/2013 1321 EDT Patient returning Jazmin's call about today's appointment. Patient is scheduled for Cath for 01/21/13 at 7:30AM. Jazmin stated he could cancel today's appointment if he was scheduled for Cath, calling tocancel documented in this encounter Plan of Treatment Not on file documented as of this encounter Visit Diagnoses Not on filedocumented in this encounter Care Teams Receptionist Airline Lounge Relationship Specialty Start Date End Date Darnell Taylor MD [address] [place] [address] PCP - General 03/02/12 07/29/19 documented as of this encounter
--- OUTSIDE RECORDS SUMMARY | 2024-11-29 00:35 | XMS_ITS | Encounter Summary ---
Author Organization [facility] Address [address] [place] [address] Care Team Providers Care Electrician Yard Name Role Phone Darnell Taylor MD Primary Care Provider [phone] Reason for Visit * Reason Onset Date Comments Returning Call 01/11/2013 Encounter Details Date Type Department Care Team (Late st Contact Info) Description 01/11/2013 Telephone [facility] Cardiology - [address] [place] [address] Rita Daniel NP [address] [facility], Level 1 [place] [address] Returning Call Social History Tobacco [...] Encounter - Rita Daniel NP - 01/11/2013 1713 EDT Patient has chosen to have left [...] on filedocumented in this encounter Care Teams Electrician Yard Relationship Specialty Start Date End Date Darnell Taylor MD [address] [place] [id number] PCP - General 03/02/12 07/29/19 documented as of this encounter
--- OUTSIDE RECORDS SUMMARY | 2024-11-29 00:35 | XMS_ITS | Encounter Summary ---
Author Organization [facility] Address [address] [place] [address] Care Team Providers Care Medical Driver Name Role Phone Darnell Taylor MD Primary Care Provider [phone] Encounter Details Date Type Department Care Team (Latest Contact Info) Description 01/03/2013 7:09 EDT - 01/03/2013 23:59 EDT Hospital Encounter [facility] [address] [place] [address] Darnell Taylor MD [address] [place] [address] Discharge Disposition: Home or Self Care Social [...] or Self Snf documented in this encounter Plan of Treatment Not on file documented as of this encounter Visit Diagnoses Not on filedocumented in this encounter Care Teams Medical Driver Relationship Specialty Start Date End Date Darnell Taylor MD [address] [place] [address] PCP - General 03/02/12 07/29/19 documented as of this encounter
--- OUTSIDE RECORDS SUMMARY | 2024-11-29 00:35 | XMS_ITS | Encounter Summary ---
Author Organization Health system Address [address] [place] [address] Care Team Providers Care Bookkeeping Teacher Name Role Phone Darnell Taylor MD Primary Care Provider [phone] Encounter Details Date Type Department Care Team (Latest Contact Info) Description 08/22/2013 10:49 EST - 08/22/2013 10:50 EST Hospital Encounter [facility] [address] [place] [address] Darnell Taylor MD [address] [place] [address] Discharge Disposition: Home or Self Care Social [...] Tab by mouth daily. Reported on 10/25/2016 Zekmlze-Pyhuut-T rotease (CREON 5) 124 mg (5,000- 18.7K-16K [...] on filedocumented in this encounter Care Teams Bookkeeping Teacher Relationship Specialty Start Date End Date Darnell Taylor MD [address] [place] [address] PCP - General 03/02/12 07/29/19 documented as of this encounter
--- OUTSIDE RECORDS SUMMARY | 2024-11-29 00:35 | XMS_ITS | Encounter Summary ---
Author Organization [facility] Address [address] [place] [address] Care Team Providers Care Senior Clinical Data Analyst Name Role Phone Darnell Taylor MD Primary Care Provider [phone] Encounter Details Date Type Department Care Team (Latest Contact Info) Description 08/05/2013 17:07 EDT - 08/05/2013 17:08 EDT Hospital Encounter [address] [address] Darek Barry, DO [address] [place] [address] Discharge Disposition: Home or Self [...] Tab by mouth daily. Reported on 10/25/2016 Qzipzhy-Dfhwjf-Y rotease (CREON 5) 124 mg (5,000- 18.7K-16K [...] filedocumented in this encounter Care Teams Senior Clinical Data Analyst Relationship Specialty Start Date End Date Darnell Taylor MD [address] [place] [address] PCP - General 03/02/12 07/29/19 documented as of this encounter
--- OUTSIDE RECORDS SUMMARY | 2024-11-29 00:35 | XMS_ITS | Encounter Summary ---
Author Organization [facility] Address [address] [place] [address] Care Team Providers Care Neurology Epilepsy Physician Name Role Phone Zhao Taylor MD Primary Care Provider [phone] Reason for Visit * Reason Comments Chest Pain Pt to ED with SSCP s viktoriya yesterday with some SOB over the past 3-4 days Encounter Details Date Type Department Care Team (Late st Contact Info) Description 12/14/2012 18:29 EST - 12/14/2012 23:25 EST Emergency [facility] Emergency Department - [facility] [address] [place], [place] [id number] Zhao Larios MD [address] [facility], Level 1 [place] [phone] Emergency, MD Lilliam Epigastric pain (Primary Dx) [...] discuss your visit and symptoms with Dr. Taylor by calling Monday for a follow up [...] documented in this encounter Procedure Notes * CORE WINDER, EDWARDO 2 - 12/18/2012 1443 ESTAssociated Order(s): [...] comments: had EKG at a walk in [facility]. His past medical history is [...] 5 Final diagnoses: Epigastric pain PCP: ZHAO TAYLOR MD 12/19/2012 18:26 * Deven Angelo - 12/14/2012 1852 EST Blood drawn via IV hub per protocol, rainbow tube(s) sent to lab per order. * Kirk Castano - 12/14/2012 1841 EST 12 Lead EKG Performed by Kirk Castano and shown to Zhao Larios IV,*. * Braden Hernandes - 12/14/2012 1831 EST TCALL: [facility] CHEST PAIN, BLOATING, SHORTNESS OF BREATH [...] EST Narrative 12/18/2012 18:50 EST Procedure Note CORE WINDER, SCAN 2 - 12/18/2012 14:43 EST us Scan 2 Computer Applications Engineer PROCEDURE/MINOR SURGICAL OR DERABLES Final Result * TROPONIN I (12/14/2012 22:05 EST) Troponin I (ng/mL) <0.034 <0.034 ng/ml [facility] Blood specimen (specimen) 12/14/2012 22:05 EST 12/14/2012 22:35 EST us Zhao Larios MD CHEMISTRY & BLOOD GA S ORDERABLES Final Result Performing Organization Address [facility] Co de Phone Number [facility] [address] [place] [address] * ED/WICC ADD-ON (12/14/2012 18:55 EST) Tests to be added LIPASE,RICARDO ER PANEL [facility] Number for problems 70087 (ED) [facility] 12/14/2012 18:5 5 EST 12/14/2012 19:00 EST us Zhao Larios MD HEMATOLOGY & PF4 ORD ERABLES Final Result Performing Organization Address [facility] de Phone Number [facility] [address] [place] [address] * TROPONIN I (12/14/2012 18:40 EST) Troponin I (ng/mL) <0.034 <0.034 ng/ml [facility] 12/14/2012 18:4 0 EST 12/14/2012 18:57 EST us Zhao Larios MD CHEMISTRY & BLOOD GA S ORDERABLES Final Result Performing Organization Address [facility] de Phone Number [facility] [address] [place] [address] * CK MB WITH TOTAL CK (12/14/2012 18:40 EST) CK 84 0 - 250 U/L [facility] MB 0.83 <4.21 ng/ml [facility] 12/14/2012 18:4 0 EST 12/14/2012 18:57 EST us Zhao Larios MD CHEMISTRY & BLOOD GA S ORDERABLES Final Result [facility] [address] [place] [address] * MAGNESIUM (12/14/2012 18:40 EST) Magnesium 2.0 1.7 - 2.8 mg/dl [facility] 12/14/2012 18:4 0 EST 12/14/2012 18:57 EST us Zhao Larios MD CHEMISTRY & BLOOD GA S ORDERABLES Final Result [facility] [address] [place] [address] * SCREENING GLUCOSE (12/14/2012 18:40 EST) Glucose, Screening 93 70 - 100 mg/dl [facility] 12/14/2012 18:4 0 EST 12/14/2012 18:57 EST us Zhao Larios MD CHEMISTRY & BLOOD GA S ORDERABLES Final Result Performing Organization Address [facility] Co de Phone Number [facility] [address] [place] [address] * CREATININE (12/14/2012 18:40 EST) Creatinine 0.91 0.66 - 1.25 mg/dl [facility] GFR, Calculated >60 >60 ml/min/1.7 3m2 [facility] 12/14/2012 18:4 0 EST 12/14/2012 18:57 EST us Zhao Larios MD CHEMISTRY & BLOOD GA S ORDERABLES Final Result [facility] [address] [place] [address] * BUN (12/14/2012 18:40 EST) BUN 14 10 - 26 mg/dl [facility] 12/14/2012 18:4 0 EST 12/14/2012 18:57 EST us Zhao Larios MD CHEMISTRY & BLOOD GA S ORDERABLES Final Result Performing Organization Address [facility] de Phone Number [facility] [address] [place] [address] * ELECTROLYTES (12/14/2012 18:40 EST) Sodium 142 136 - 145 mEq/L [facility] Potassium 4.5 3.5 - 5.0 mEq/L [facility] Chloride 98 96 - 110 mEq/L [facility] CO2 29 24 - 32 mEq/L [facility] 12/14/2012 18:4 0 EST 12/14/2012 18:57 EST Zhao Larios MD CHEMISTRY & BLOOD GA S ORDERABLES Final Result Performing Organization Address [facility] Phone Number [facility] [address] [place] [address] * HOLD BLUE TOP (12/14/2012 18:40 EST) Hold Blue Top Sample for coagulation will be discarded after 4 hours [facility] 12/14/2012 18:4 0 EST 12/14/2012 18:57 EST Zhao Larios MD LAB INFO SERVICE AND SUPPORT & PHONE RESULT Final Result Performing Organization Address [facility] de Phone Number [facility] [address] [place] [address] * DIFFERENTIAL (12/14/2012 18:40 EST) % Neutrophils 62.6 45.5 - 79.7 % [facility] % Lymphocytes 28.0 15.0 - 46.8 % [facility] % Monocytes 6.7 1.8 - 12.0 % [facility] % Eosinophils 2.1 0.6 - 6.9 % [facility] % Basophils 0.6 0.2 - 1.4 % [facility] ABS Neutrophils 3.60 2.20 - [...] ORD ERABLES Final Result Performing Organization Address City/[facility] Co de Phone Number [facility] [address] [place] [address] * HEMAGRAM (12/14/2012 18:40 EST) WBC 5.75 [...] ORD ERABLES Final Result Performing Organization Address City/[facility] Co de Phone Number [facility] [address] [place] [address] * (ABNORMAL) LIVER FUNCTION TESTS (12/14/2012 18:40 [...] S ORDERABLES Final Result Performing Organization Address [facility] de Phone Number [facility] [address] [place] [address] * LIPASE (12/14/2012 18:40 EST) Lipase 135 0 - 250 U/L [facility] 12/14/2012 18:4 0 EST 12/14/2012 18:57 EST us Zhao Larios MD CHEMISTRY & BLOOD GA S ORDERABLES Final Result Performing Organization Address [facility] Phone Number [facility] [address] [place] [address] * EKG 12-LEAD (12/14/2012 18:39 EST) 12/14/2012 18:3 9 EST Narrative [facility] - 12/17/2012 13:13 EST ?[facility] ? Test Date: ?2012-12-14 Pat Name: ? [facility]RETT [employer] ?Department: ?? ED ? Room: ? AC14 Gender: ? M ?Psychiatric Specialist: ?? [id number] : ?1945 ? Requested By: ZHAO LARIOS MD Order Number: [id number] ?Reading MD: ?? JERRY ALVARADO MD ? Measurements Intervals ?[place] ? Rate: ? 65 ? P: ?38 AL: ? 147 ?QRS: ?11 QRSD: ? 87 ? T: ?27 QT: ? 367 ? QTc: ?379 ? Interpretive Statements SINUS RHYTHM No previous ECG available for comparison Electronically Signed On 12-17-12 13:13:24 EST by JERRY ALVARADO MD Procedure Note Jerry Alvarado MD - 12/17/2012 [facility] Test Date: 2012-12-14 Pat Name: BARRETT NGO Department: ED Room: [facility] Gender: M Psychiatric Specialist: [id number] : 1945 Requested By: ZHAO RALPH Order Number: [id number] Reading MD: JERRY ALVARADO MD Measurements Intervals [place] Rate: 65 P: 38 AL: 147 QRS: 11 QRSD: 87 T: 27 QT: 367 QTc: 379 Interpretive Statements SINUS RHYTHM No previous ECG available for comparison Electronically Signed On 12-17-12 13:13:24 EST by JERRY ALVARADO MD us Zhao Larios MD CARDIAC ECG ORDERABL ES Final Result [facility] [address] [place] [address] documented in this encounter Visit Diagnoses Diagnosis [...] 12/14/2012 documented in this encounter Care Teams Neurology Epilepsy Physician Relationship Specialty Start Date End Date Zhao Taylor MD [address] [place] [address] PCP - General 03/02/12 07/29/19 documented as of this encounter
--- OUTSIDE RECORDS SUMMARY | 2024-11-29 00:36 | XMS_ITS | Encounter Summary ---
Author Organization [facility] Address [address] [place] [address] Care Team Providers Care Newspaper Library Manager Name Role Phone Hua Blanton MD Primary Care Provider Unava ilable None, Provider Primary Care Provider Unavailabl e Darnell Taylor MD Primary Care Provider [phone] Darnell Taylor MD Primary Care Provider [phone] Lasha Angelo MD Primary Care Provider [phone] Sangita Nolasco MD Primary Care Provider [phone] Encounter Details Date Type Department Care Team (Late st Contact Info) Description 12/13/2004 Before PRISM Converted Visit (Maple) [facility] - Maple conversion [address] [place] [address] Dalton Rodriguez MD [address] [place] [address] Social History Tobacco Use Types Packs/Day Years [...] documented as of this encounter Care Teams Newspaper Library Manager Relationship Specialty Start Date End Date Hua Blanton MD PCP - General 03/12/09 12/15/11 None, Provider PCP - General 12/16/11 03/01/12 Darnell Taylor MD [address] [place] [address] PCP - General 03/02/12 07/29/19 Darnell Taylor MD [address] [place], [place] [address] PCP - General 07/30/19 01/08/20 Lasha Angelo MD [address] [place], [place] [address] PCP - General Family Medicine - Primary Care 01/09/20 06/23/21 Sangita Nolasco MD [address] [place], [place] [address] PCP - General 06/24/21 documented as of this encounter
--- OUTSIDE RECORDS SUMMARY | 2024-11-29 00:36 | XMS_ITS | Encounter Summary ---
Author Organization [facility] Address [address] [place] [address] Care Team Providers Care Stereo Map Plotter Operator Name Role Phone Unavailable Primary Care Provider Unavailabl e Encounter Details Date Type Department Care Team (Latest Contact Info) Description 10/23/2008 13:33 EST Hospital Encounter [facility] - Other [address] [place] [address] Kami Blanton MD Discharge Disposition: Home or [...] ? [facility] ? Accession #: ? [id number] ? : ? 1945 (Age: 63) ??M [...] ORDERABLES [place] bower Result [facility] [address] [place] [address] * PSA (10/23/2008 11:00 EST) PSA 3.4 0 - 4.5 ng/ml [facility] Comment: Serum PSA concentration should not be interpreted as absolute evidence for the presence or absence of malignant disease. Assayed utilizing [employer] chemiluminescent technology. Values obtained by using different assay methods cannot be used interchangeably. 10/23/2008 11:0 0 EST 10/23/2008 13:34 EST Kami Blanton MD CHEMISTRY & BLOOD GAS ORDERA BLES Final Result Performing Organization Address [facility] de Phone Number [facility] [address] [place] [address] * HEMAGRAM (10/23/2008 11:00 EST) WBC 4.16 [...] PF4 ORDERABLES Final Result Performing Organization Address [facility] de Phone Number [facility] [address] [place] [address] * LIPID PROFILE (10/23/2008 11:00 EST) Cholesterol 203 mg/dl [facility] Comment: Desirable:<200 Borderline High:200-239 High:>zv=564 Triglycerides 101 35 - 160 mg/dl [facility] HDL 69 mg/dl [facility] Comment: Low:<40 High(Desirable):>or=60 LDL, Calculated 114 mg/dl [facility] Comment: Optimal:<100 Above optimal:100-129 Borderline High:130-159 High:160-189 Very High:>kr=206 Chol/HDL Ratio 2.9 [facility] Fasting? No [facility] 10/23/2008 11:0 0 EST 10/23/2008 13:34 EST Kami Blanton MD CHEMISTRY & BLOOD GAS ORDERA BLES Final Result [facility] [address] [place] [address] * COMPREHENSIVE METABOLIC PANEL (10/23/2008 11:00 EST) [...] BLES Final Result [facility] [address] [place] [address] documented in this encounter Visit Diagnoses Not on filedocumented in this encounter
--- OUTSIDE RECORDS SUMMARY | 2024-11-29 00:36 | XMS_ITS | Encounter Summary ---
Author Organization [facility] Address [address] [place] [address] Care Team Providers Care Stock Worker Name Role Phone Unavailable Primary Care Provider Unavailabl e Encounter Details Date Type Department Care Team (Latest Contact Info) Description 04/27/2006 10:05 EDT - 04/27/2006 11:59 EDT Hospital Encounter [facility] - Other [address] [place] [address] Hua Blanton MD Discharge Disposition: Auto Discharge [...] or absence of malignant disease. Assayed utilizing [employer] chemiluminescent technology. Values obtained by using different assay methods cannot be used interchangeably. PREVIOUS PSA RESULT ON 09/30/05 WAS 3.3 AND ON 07/05/05 WAS 3.6 04/27/2006 11:1 0 EDT 04/27/2006 14:51 EDT Hua Blanton MD CHEMISTRY & BLOOD GAS ORDERA BLES Final Result Performing Organization Address [facility] Co de Phone Number [facility] [address] [place] [address] * HOLD PURPLE TOP (04/27/2006 11:10 EDT) Hold Purple Top EDTA for hematology will be discarded after 48 hours, differential not available after 12 hours. [facility] 04/27/2006 11:1 0 EDT 04/27/2006 14:51 EDT Hua Blanton MD LAB INFO SERVICE AND SUPPORT & PHONE RESULT Final Result Performing Organization Address [facility] Co de Phone Number [facility] [address] [place] [address] documented in this encounter Visit Diagnoses Not on filedocumented in this encounter
--- OUTSIDE RECORDS SUMMARY | 2024-11-29 00:36 | XMS_ITS | Encounter Summary ---
Author Organization [facility] Address [address] [place] [address] Care Team Providers Care Production Dispatcher Name Role Phone Unavailable Primary Care Provider Unavailabl e Encounter Details Date Type Department Care Team (Latest Contact Info) Description 01/21/2009 12:44 EDT Hospital Encounter [facility] [address] [place] [address] Matty Renee MD [address] [place] [address] Discharge Disposition: Auto Discharge Social [...]
--- OUTSIDE RECORDS SUMMARY | 2024-11-29 00:36 | XMS_ITS | Encounter Summary ---
Author Organization [facility] Address [address] [place] [address] Care Team Providers Care Manager Service Desk Name Role Phone Unavailable Primary Care Provider Unavailabl e Encounter Details Date Type Department Care Team (Late st Contact Info) Description 06/08/2003 7:58 EDT - 06/08/2003 11:59 EDT Hospital Encounter [facility] [address] [place] [address] Agusto Keyes MD [address] [place] [phone] Discharge Disposition: Auto Discharge Social History [...]
--- OUTSIDE RECORDS SUMMARY | 2024-11-29 00:36 | XMS_ITS | Encounter Summary ---
Author Organization [facility] Address [address] [place] [address] Care Team Providers Care Gravure Printing Machinist Name Role Phone Unavailable Primary Care Provider Unavailabl e Encounter Details Date Type Department Care Team (Latest Contact Info) Description 08/31/1999 14:19 EST Hospital Encounter [facility] - Other [address] [place] [address] Enriquez, Rayo Brandt MD [address] [place] [address] Unknown, Provider, Discharge Disposition: Auto [...] isolated [facility] Report Status Final [id number] [facility] 09/02/1999 15:0 0 EST 09/02/1999 18:40 EST Rayo Enriquez MD MICROBIOLOGY - GENERAL OR DERABLES Final Result Performing Organization Address [facility] de Phone Number [facility] [address] [place] [address] * PSA (08/31/1999 16:06 EST) Pathologist [facility] PSA 1.4 0 - 3.5 ng/ml [facility] Comment: Serum PSA concentration should not be interpreted as absolute evidence for the presence or absence of malignant disease. Assayed utilizing [employer] chemiluminescent technology. Values obtained by using different assay methods cannot be used interchangeably. 08/31/1999 16:0 6 EST 08/31/1999 16:06 EST Rayo Enriquez MD CHEMISTRY & BLOOD GAS ORD ERABLES Final Result Performing Organization Address [facility] de Phone Number [facility] [address] [place] [address] * ELECTROLYTES (08/31/1999 16:06 EST) Sodium 140 136 - 145 mEq/L [facility] Potassium 4.0 3.5 - 5.0 mEq/L [facility] Chloride 101 96 - 110 mEq/L [facility] CO2 27 24 - 30 mEq/L [facility] 08/31/1999 16:0 6 EST 08/31/1999 16:06 EST Rayo Enriquez MD CHEMISTRY & BLOOD GAS ORD ERABLES Final Result Performing Organization Address City/[facility] Co de Phone Number [facility] [address] [place] [address] * LIVER FUNCTION TESTS (08/31/1999 16:06 EST) [...] ORD ERABLES Final Result Performing Organization Address [facility] Co de Phone Number [facility] [address] [place] [address] * BUN (08/31/1999 16:06 EST) BUN 14 10 - 26 mg/dl [facility] 08/31/1999 16:0 6 EST 08/31/1999 16:06 EST Rayo Enriquez MD CHEMISTRY & BLOOD GAS ORD ERABLES Final Result [facility] [address] [place] [address] documented in this encounter Visit Diagnoses Not on filedocumented in this encounter
--- OUTSIDE RECORDS SUMMARY | 2024-11-29 00:36 | XMS_ITS | Encounter Summary ---
Author Organization [facility] Address [address] [place] [address] Care Team Providers Care Internet Sales Director Name Role Phone Unavailable Primary Care Provider Unavailabl e Encounter Details Date Type Department Care Team (Latest Contact Info) Description 02/01/2006 8:59 EDT - 02/01/2006 11:59 EDT Hospital Encounter [facility] - Other [address] [place] [address] Hua Blanton MD Discharge Disposition: Home or [...] * THYROID CASCADE (02/01/2006 11:30 EDT) Pathologist [facility] TSH 1.72 0.35 - 5.00 uIU/mL [facility] Comment: TSH cascade is not recommended for patients in which pituitary or hypothalamic disorders are suspected. 02/01/2006 11:3 0 EDT 02/01/2006 17:32 EDT Hua Blanton MD CHEMISTRY & BLOOD GAS ORDERA BLES Final Result Performing Organization Address [facility] de Phone Number [facility] [address] [place] [address] * SED. RATE:WESTERGREN (02/01/2006 11:30 EDT) [facility] Sed. Rate Westergren 10 0 - 20 mm/hr [facility] Comment: Note: Sample greater than 4 hrs old (but less than 12 hrs) when tested. If refrigerated, sample is stable when tested within 12 hours of collection. 02/01/2006 11:3 0 EDT 02/01/2006 17:32 EDT Hua Blanton MD HEMATOLOGY & PF4 ORDERABLES Final Result Performing Organization Address [facility] de Phone Number [facility] [address] [place] [address] * (ABNORMAL) COMPREHENSIVE METABOLIC PANEL (02/01/2006 11:30 EDT) Pathologist [facility] Potassium 4.3 3.5 - 5.0 mEq/L [facility] [...] ORDERA BLES Final Result Performing Organization Address [facility] Co de Phone Number [facility] [address] [place] [address] * CK (02/01/2006 11:30 EDT) CK 84 0 - 250 U/L [facility] 02/01/2006 11:3 0 EDT 02/01/2006 17:32 EDT Hua Blanton MD CHEMISTRY & BLOOD GAS ORDERA BLES Final Result Performing Organization Address [facility] Co de Phone Number [facility] [address] [place] [address] * (ABNORMAL) HEMAGRAM (02/01/2006 11:30 EDT) WBC [...] PF4 ORDERABLES Final Result Performing Organization Address City/State/[facility] Co de Phone Number [facility] [address] [place] [address] documented in this encounter Visit Diagnoses Not on filedocumented in this encounter
--- OUTSIDE RECORDS SUMMARY | 2024-11-29 00:36 | XMS_ITS | Encounter Summary ---
Author Organization [facility] Address [address] [place] [address] Care Team Providers Care Driver Recruiter Name Role Phone Hua Blanton MD Primary Care Provider Unava ilable Encounter Details Date Type Department Care Team (Late st Contact Info) Description 11/16/2009 Orders Only [facility] [phone] Hua Blanton MD Social History Tobacco Use [...] Procedure Note Ye Juan MD / Ye Jaun MD / Ye Juan MD - 11/17/2009 [...] on filedocumented in this encounter Care Teams Driver Recruiter Relationship Specialty Start Date End Date Hua Blanton MD PCP - General 03/12/09 12/15/11 documented as of this encounter
--- OUTSIDE RECORDS SUMMARY | 2024-11-29 00:36 | XMS_ITS | Encounter Summary ---
Author Organization [facility] Address [address] [place] [address] Care Team Providers Care Outside Production Inspector Name Role Phone Unavailable Primary Care Provider Unavailabl e Encounter Details Date Type Department Care Team (Late st Contact Info) Description 12/31/2004 11:00 EST - 12/31/2004 11:59 EST Hospital Encounter [facility] [address] [place] [address] Jorge Luis Lee MD [address] [place] [address] Discharge Disposition: Auto Discharge Social [...] DIVERTICULITIS, OTHER ABNORMALITIES ??BCBS ??LYLE TO FAX [address]68 CT ABDOMEN AND PELVIS 12/31/04 CLINICAL HISTORY: [...] DIVERTICULITIS, OTHER ABNORMALITIES BCBS [place] TO FAX [address]238 CT ABDOMEN AND PELVIS 12/31/04 CLINICAL HISTORY: [...]
--- OUTSIDE RECORDS SUMMARY | 2024-11-29 00:36 | XMS_ITS | Encounter Summary ---
Author Organization [facility] Address [address] [place] [address] Care Team Providers Care Ore Dressing Engineer Name Role Phone Hua Blanton MD Primary Care Provider Unava ilable Encounter Details Date Type Department Care Team (Late st Contact Info) Description 05/03/2006 Before PRISM Converted Visit (Maple) [facility] - Maple conversion [address] [place] [address] Vic Syed MD FA HOUSE STAFF MAIL [address] [place] [address] Social History Tobacco Use Types Packs/Day Years [...] HISTORY: 1. Right shoulder surgery in [place] and in [facility] in 1972 or 1973. 2. 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 FAMILY HISTORY: Father at 58 of liver and pancreatic cancer, which developed after participating in an experimental treatment protocol for arthritis in [facility]. He also had some pains in his arms and legs similar to what the patient has. Mother at age 72 of throat and lung cancer and also had a history of heavy smoking. One brother soon after and another at 9 years old after developing polio at the age of 6. One at age 45 from severe [place]. Another brother is 50 years old and [...] and anti-SSB were normal, pyruvic acid and ixzr-riqmrw-xveclngu DNA were within normal limits. ASSESSMENT AND [...] MD Kunal P - LBR Job ID: [id number] Document ID: [id number] cc: Hua Blanton MD documented in this encounter Plan of Treatment Not on file documented as of this encounter Visit Diagnoses Not on filedocumented in this encounter Care Teams Ore Dressing Engineer Relationship Specialty Start Date End Date Hua Blanton MD PCP - General 03/12/09 12/15/11 documented as of this encounter
--- OUTSIDE RECORDS SUMMARY | 2024-11-29 00:36 | XMS_ITS | Encounter Summary ---
Author Organization [facility] Address [address] [place] [address] Care Team Providers Care Food Consultant Name Role Phone Unavailable Primary Care Provider Unavailabl e Encounter Details Date Type Department Care Team (Latest Contact Info) Description 09/30/2005 23:01 EST Hospital Encounter [facility] - Other [address] [place] [address] Hua Blanton MD Discharge Disposition: Home or [...] or absence of malignant disease. Assayed utilizing Fotech chemiluminescent technology. Values obtained by using different assay methods cannot be used interchangeably. PREVIOUS PSA RESULT ON 07/05/05 WAS 3.6 09/30/2005 11:3 0 EST 09/30/2005 13:16 EST Hua Blanton MD CHEMISTRY & BLOOD GAS ORDERA BLES Final Result Performing Organization Address [facility] de Phone Number [facility] [address] [place] [address] * HOLD PURPLE TOP (09/30/2005 11:30 EST) Hold Purple Top EDTA for hematology will be discarded after 48 hours, differential not available after 12 hours. [facility] 09/30/2005 11:3 0 EST 09/30/2005 13:16 EST Hua Blanton MD LAB INFO SERVICE AND SUPPORT & PHONE RESULT Final Result Performing Organization Address [facility] Co de Phone Number [facility] [address] [place] [address] documented in this encounter Visit Diagnoses Not on filedocumented in this encounter
--- OUTSIDE RECORDS SUMMARY | 2024-11-29 00:36 | XMS_ITS | Encounter Summary ---
Author Organization [facility] Address [address] [place] [address] Care Team Providers Care Ceo [place] Name Role Phone Hua Blanton MD Primary Care Provider Unava ilable Encounter Details Date Type Department Care Team (Latest Contact Info) Description 11/11/2009 9:05 EST - 11/11/2009 23:59 EST Hospital Encounter [facility] - Other [address] [place] [address] Hua Blanton MD Discharge Disposition: Auto Discharge [...] on filedocumented in this encounter Care Teams Ceo [place] Relationship Specialty Start Date End Date Hua Blanton MD PCP - General 03/12/09 12/15/11 documented as of this encounter
--- OUTSIDE RECORDS SUMMARY | 2024-11-29 00:36 | XMS_ITS | Encounter Summary ---
Author Organization [facility] Address [address] [place] [address] Care Team Providers Care Lang Interpreter Name Role Phone Hua Blanton MD Primary Care Provider Unava ilable Encounter Details Date Type Department Care Team (Late st Contact Info) Description 05/03/2006 Before PRISM Converted Visit (Maple) [facility] - Maple conversion [address] [place] [address] Randy Booth MD 1 [facility], [address] [place] [address] Social History Tobacco Use Types [...] SERVICE PROGRESS/FOLLOWUP NOTE - 05/03/2006 [facility] DICTATION Problem: (__) Probable fibromyalgia. [...] MD Emmy A - hw Job ID: [id number] Document ID: [id number] cc: Hua Blanton MD documented in this encounter Plan of Treatment Not on file documented as of this encounter Visit Diagnoses Not on filedocumented in this encounter Care Teams Lang Interpreter Relationship Specialty Start Date End Date Hua Blanton MD PCP - General 03/12/09 12/15/11 documented as of this encounter
--- OUTSIDE RECORDS SUMMARY | 2024-11-29 00:36 | XMS_ITS | Encounter Summary ---
Author Organization [facility] Address [address] [place] [address] Care Team Providers Care Plant Engineering Manager Name Role Phone Unavailable Primary Care Provider Unavailabl e Encounter Details Date Type Department Care Team (Late st Contact Info) Description 04/16/2001 21:52 EDT Hospital Encounter [facility] - Other [address] [place] [address] Hua Blanton MD Unknown, Provider, Social History [...] Results * PSA (04/16/2001 9:50 EDT) Pathologist [facility] PSA 2.0 0 - 3.5 ng/ml [facility] Comment: Serum PSA concentration should not be interpreted as absolute evidence for the presence or absence of malignant disease. Assayed utilizing ThinkVine chemiluminescent technology. Values obtained by using different assay methods cannot be used interchangeably. 04/16/2001 9:50 EDT 04/16/2001 13:31 EDT Hua Blanton MD CHEMISTRY & BLOOD GAS ORDERA BLES Final Result Performing Organization Address [facility] de Phone Number [facility] [address] [place] [address] * LIPID PROFILE (INCLUDES CHOLESTEROL, TRIGLYCERIDES, HDL, LDL) (04/16/2001 9:50 EDT) Pathologist [facility] Cholesterol 213 mg/dl [facility] Comment: Desirable:<200 Borderline:200-239 High Risk:>[id number]=[id number] Triglycerides 105 35 - 160 mg/dl [facility] HDL 68 mg/dl [facility] Comment: Highly Desirable:>60 Desirable:35-60 High Risk:<35 LDL, Calculated 124 mg/dl [facility] Comment: Desirable:<130 Borderline:130-159 High Risk:>di=889 Chol/HDL Ratio 3.1 [facility] 04/16/2001 9:50 EDT 04/16/2001 13:31 EDT Hua Blanton MD CHEMISTRY & BLOOD GAS ORDERA BLES Final Result Performing Organization Address [facility] de Phone Number [facility] [address] [place] [address] * (ABNORMAL) COMPREHENSIVE METABOLIC PANEL (04/16/2001 9:50 [...] BLES Final Result [facility] [address] [place] [address] * (ABNORMAL) HEMAGRAM (04/16/2001 9:50 EDT) WBC [...] ORDERABLES Final Result [facility] [address] [place] [address] documented in this encounter Visit Diagnoses Not on filedocumented in this encounter Additional Health Concerns Infection Onset Date Last Indicated Resolved Time R/O COVID-19 04/15/2020 04/15/2020 04/20/2020 22:1 6 EDT documented as of this encounter
--- OUTSIDE RECORDS SUMMARY | 2024-11-29 00:36 | XMS_ITS | Encounter Summary ---
Author Organization [facility] Address [address] [place] [address] Care Team Providers Care Hose Tubing Backer Name Role Phone Hua Blanton MD Primary Care Provider Unava ilable Encounter Details Date Type Department Care Team (Late st Contact Info) Description 12/13/2004 Office Visit [facility] - Maple conversion [address] [place] [address] Jennifer Gibbons MD [address] [facility], [address] [place] [address] Social History Tobacco Use Types [...] at departure: stable. Transported via stretcher by [facility]. Report was given (to RN). (IVF NS atbolus IV.). --00:08 Laron Saez R.N., R.N. Shelly Garrow R.N. Joseph Pare, E.M.T. Audra Fisher R.N. Locked/Released at 12/14/2004 0:13 by Gina Adler R.N. documented in this encounter Plan of Treatment Not on file documented as of this encounter Visit Diagnoses Not on filedocumented in this encounter Care Teams Hose Tubing Backer Relationship Specialty Start Date End Date Hua Blanton MD PCP - General 03/12/09 12/15/11 documented as of this encounter
--- OUTSIDE RECORDS SUMMARY | 2024-11-29 00:36 | XMS_ITS | Encounter Summary ---
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 He was accompanied by his . 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 Family History: Father at age 58 of [...] mm. MRI scan [facility] spine done[facility] on 10/26/05 showed no focal disk [...] Booth MD A - hw Job ID: [id number] Document ID: [id number] cc: Hua Blanton MD documented in this encounter Care Teams Social Media Director Relationship Specialty Start Date End Date Hua Blanton MD PCP - General 03/12/09 12/15/11 documented as of this encounter
--- OUTSIDE RECORDS SUMMARY | 2024-11-29 00:36 | XMS_ITS | Encounter Summary ---
Author Organization [facility] Address [address] [place] [address] Care Team Providers Care Kiosk Sales Representative Name Role Phone Unavailable Primary Care Provider Unavailabl e Encounter Details Date Type Department Care Team (Latest Contact Info) Description 11/20/2002 22:35 EST - 11/21/2002 11:59 EST Hospital Encounter [facility] Emergency Department - [facility] [address] [place] [address] Emergency, Default, MD Discharge Disposition: Home or [...]
--- OUTSIDE RECORDS SUMMARY | 2024-11-29 00:36 | XMS_ITS | Encounter Summary ---
Author Organization [facility] Address [address] [place] [address] Care Team Providers Care School Cafeteria Cook Head Name Role Phone Unavailable Primary Care Provider Unavailabl e Encounter Details Date Type Department Care Team (Latest Contact Info) Description 06/24/2005 22:35 EDT Hospital Encounter [facility] - Other [address] [place] [address] Jennifer Thomas MD [address] [place] [phone] Discharge Disposition: Auto Discharge Social History Tobacco [...] GAS ORDERABLES Final Result Performing Organization Address City/[facility] Co de Phone Number [facility] [address] [place] [address] * SED. RATE:WESTERGREN (06/24/2005 14:05 EDT) Pathologist [facility] Sed. Rate Westergren 7 0 - 20 mm/hr [facility] Comment: Note: Sample greater than 4 hrs old (but less than 12 hrs) when tested. If refrigerated, sample is stable when tested within 12 hours of collection. 06/24/2005 14:0 5 EDT 06/24/2005 18:19 EDT Jennifer Thomas MD HEMATOLOGY & PF4 ORDERABLES [place] l Result Performing Organization Address [facility] de Phone Number [facility] [address] [place] [address] * CK (06/24/2005 14:05 EDT) CK 110 0 - 250 U/L [facility] 06/24/2005 14:0 5 EDT 06/24/2005 18:19 EDT Jennifer Thomas MD CHEMISTRY & BLOOD GAS ORDERABLES Final Result Performing Organization Address [facility] Co de Phone Number [facility] [address] [place] [address] documented in this encounter Visit Diagnoses Not on filedocumented in this encounter
--- OUTSIDE RECORDS SUMMARY | 2024-11-29 00:36 | XMS_ITS | Encounter Summary ---
Author Organization [facility] Address [address] [place] [address] Care Team Providers Care Recreation Facility Attendant Name Role Phone Hua Blanton MD Primary Care Provider Unava ilable Encounter Details Date Type Department Care Team (Late st Contact Info) Description 05/24/2011 Abstract [facility] [address] [facility], [place] [address] Hua Blanton MD Social History Tobacco Use [...] 01/13/2020 added in this encounter Care Teams Recreation Facility Attendant Relationship Specialty Start Date End Date Hua Blanton MD PCP - General 03/12/09 12/15/11 documented as of this encounter
--- OUTSIDE RECORDS SUMMARY | 2024-11-29 00:36 | XMS_ITS | Encounter Summary ---
Author Organization [facility] Address [address] [place] [address] Care Team Providers Care Milking Machine Mechanic Name Role Phone Unavailable Primary Care Provider Unavailabl e Encounter Details Date Type Department Care Team (Late st Contact Info) Description 06/04/2003 21:09 EDT Hospital Encounter [facility] [address] [place] [address] Agusto Keyes MD [address] [place] [phone] Discharge Disposition: Auto Discharge Social History Tobacco [...] 06/04/03 Negative for foreign body. dw us Agutso Keyes MD IMG DIAGNOSTIC IMAGING ORDERABLE S Final Result documented in this encounter Visit Diagnoses Not on filedocumented in this encounter
--- OUTSIDE RECORDS SUMMARY | 2024-11-29 00:36 | XMS_ITS | Encounter Summary ---
Author Organization [facility] Address [address] [place] [address] Care Team Providers Care Retirement Assistant Name Role Phone Unavailable Primary Care Provider Unavailabl e Encounter Details Date Type Department Care Team (Latest Contact Info) Description 11/05/2001 20:31 EST Hospital Encounter [facility] - Other [address] [place] [address] Jennifer Thomas MD [address] [place] [phone] Unknown, Provider, Discharge Disposition: Auto Discharge Social [...] GAS ORDERABLES Final Result Performing Organization Address City/State/[facility] Co de Phone Number [facility] [address] [place] [address] documented in this encounter Visit Diagnoses Not on filedocumented in this encounter
--- OUTSIDE RECORDS SUMMARY | 2024-11-29 00:36 | XMS_ITS | Encounter Summary ---
Author Organization [facility] Address [address] [place] [address] Care Team Providers Care Cdl Dedicated Truck Driver Name Role Phone Hua Blanton MD Primary Care Provider Unava ilable Encounter Details Date Type Department Care Team (Latest Contact Info) Description 04/29/2009 14:29 EDT - 04/29/2009 23:59 EDT Hospital Encounter [facility] - [address] [place] [address] Shai Garza MD [address] [place] [phone] Discharge Disposition: Home or Self Care [...] or Self Halfway documented in this encounter Progress Notes * [...] or absence of malignant disease. Assayed utilizing Gremln chemiluminescent technology. Values obtained by using different assay methods cannot be used interchangeably. PREVIOUS PSA ON 10/23/08 WAS 3.4 11/11/2009 10:0 0 EST 11/11/2009 13:51 EST Hua Blanton MD CHEMISTRY & BLOOD GAS ORDERA BLES Final Result Performing Organization Address [facility] de Phone Number [facility] [address] [place] [address] * LIPID PROFILE (INCLUDES CHOLESTEROL, TRIGLYCERIDES, HDL, LDL) (11/11/2009 10:00 EST) Pathologist [facility] Cholesterol 201 mg/dl [facility] Comment: Desirable:<200 Borderline High:200-239 High:>xv=716 Triglycerides 97 35 - 160 mg/dl [facility] HDL 69 mg/dl [facility] Comment: Low:<40 High(Desirable):>or=60 LDL, Calculated 113 mg/dl [facility] Comment: Optimal:<100 Above optimal:100-129 Borderline High:130-159 High:160-189 Very High:>yq=973 Chol/HDL Ratio 2.9 [facility] Fasting? Yes [facility] 11/11/2009 10:0 0 EST 11/11/2009 13:51 EST Hua Blanton MD CHEMISTRY & BLOOD GAS ORDERA BLES Final Result Performing Organization Address [facility] Phone Number [facility] [address] [place] [address] * COMPREHENSIVE METABOLIC PANEL (11/11/2009 10:00 EST) [...] BLES Final Result [facility] [address] [place] [address] * (ABNORMAL) HEMAGRAM (11/11/2009 10:00 EST) WBC [...] ORDERABLES Final Result [facility] [address] [place] [address] documented in this encounter Visit Diagnoses Not on filedocumented in this encounter Care Teams Cdl Dedicated Truck Driver Relationship Specialty Start Date End Date Hua Blanton MD PCP - General 03/12/09 12/15/11 documented as of this encounter
--- OUTSIDE RECORDS SUMMARY | 2024-11-29 00:36 | XMS_ITS | Encounter Summary ---
Author Organization [facility] Address [address] [place] [address] Care Team Providers Care Hospital Pharmacy Director Name Role Phone Unavailable Primary Care Provider Unavailabl e Encounter Details Date Type Department Care Team (Latest Contact Info) Description 03/07/2003 15:09 EDT Hospital Encounter [facility] - Other [address] [place] [address] Hua Blanton MD Discharge Disposition: Auto Discharge [...]
--- OUTSIDE RECORDS SUMMARY | 2024-11-29 00:36 | XMS_ITS | Encounter Summary ---
Author Organization [facility] Address [address] [place] [address] Care Team Providers Care Irrigator Sprinkling System Name Role Phone Unavailable Primary Care Provider Unavailabl e Encounter Details Date Type Department Care Team (Late st Contact Info) Description 07/05/2005 18:09 EDT Hospital Encounter [facility] - Other [address] [place] [address] Hua Blanton MD Social History Tobacco Use [...] PSA SCREEN (07/05/2005 9:50 EDT) Pathologist [facility] PSA 3.6(H) 0 - 3.5 ng/ml [facility] Comment: Serum PSA concentration should not be interpreted as absolute evidence for the presence or absence of malignant disease. Assayed utilizing Gopeers chemiluminescent technology. Values obtained by using different assay methods cannot be used interchangeably. 07/05/2005 9:50 EDT 07/05/2005 15:31 EDT Hua Blanton MD CHEMISTRY & BLOOD GAS ORDERA BLES Final Result Performing Organization Address [facility] de Phone Number [facility] [address] [place] [address] * LIPID PROFILE (INCLUDES CHOLESTEROL, TRIGLYCERIDES, HDL, LDL) (07/05/2005 9:50 EDT) Pathologist [facility] Cholesterol 200 mg/dl [facility] Comment: Desirable:<200 Borderline:200-239 High Risk:>lk=461 Triglycerides 146 35 - 160 mg/dl [facility] HDL 63 mg/dl [facility] Comment: Highly Desirable:>60 Desirable:35-60 High Risk:<35 LDL, Calculated 108 mg/dl [facility] Comment: Desirable:<130 Borderline:130-159 High Risk:>kr=285 Chol/HDL Ratio 3.2 [facility] Fasting? Yes [facility] 07/05/2005 9:50 EDT 07/05/2005 15:31 EDT Hua Blanton MD CHEMISTRY & BLOOD GAS ORDERA BLES Final Result Performing Organization Address [facility] de Phone Number [facility] [address] [place] [address] * COMPREHENSIVE METABOLIC PANEL (07/05/2005 9:50 EDT) [...] Calculated Calcium 9.8 8.5 - 10.5 mg/dl [facility] Glucose, Serum 104 70 - 110 mg/dl [facility] Fasting? Yes [facility] Albumin/Globulin Ratio 1.4 [facility] 07/05/2005 9:50 EDT 07/05/2005 15:31 EDT Hua Blanton MD CHEMISTRY & BLOOD GAS ORDERA BLES Final Result [facility] [address] [place] [address] * HEMAGRAM (07/05/2005 9:50 EDT) WBC 4.21 [...] ORDERABLES Final Result [facility] [address] [place] [address] documented in this encounter Visit Diagnoses Not on filedocumented in this encounter Additional Health Concerns Infection Onset Date Last Indicated Resolved Time R/O COVID-19 04/15/2020 04/15/2020 04/20/2020 22:1 6 EDT documented as of this encounter
--- OUTSIDE RECORDS SUMMARY | 2024-11-29 00:36 | XMS_ITS | Encounter Summary ---
Author Organization [facility] Address [address] [place] [address] Care Team Providers Care Matrix Worker Name Role Phone Hua Blanton MD Primary Care Provider Unava ilable Encounter Details Date Type Department Care Team (Latest Contact Info) Description 11/17/2009 9:05 EST - 11/17/2009 23:59 EST Hospital Encounter [facility] [address] [place] [address] Hua Blanton MD Discharge Disposition: Home or [...] Code Departure Means Destination Home or Self Detention documented in this encounter Plan of Treatment Not on file documented as of this encounter Visit Diagnoses Not on filedocumented in this encounter Care Teams Matrix Worker Relationship Specialty Start Date End Date Hua Blanton MD PCP - General 03/12/09 12/15/11 documented as of this encounter
--- OUTSIDE RECORDS SUMMARY | 2024-11-29 00:36 | XMS_ITS | Encounter Summary ---
Author Organization [facility] Address [address] [place] [address] Care Team Providers Care Facilities Locator Name Role Phone Unavailable Primary Care Provider Unavailabl e Encounter Details Date Type Department Care Team (Latest Contact Info) Description 09/02/1999 9:45 EST - 09/02/1999 11:59 EST Hospital Encounter [facility] - Other [address] [place] [address] Rayo Enriquez MD [address] [place] [phone] Unknown, Provider, Discharge Disposition: Auto Discharge [...]
--- OUTSIDE RECORDS SUMMARY | 2024-11-29 00:36 | XMS_ITS | Encounter Summary ---
Author Organization [facility] Address [address] [place] [address] Care Team Providers Care Aircraft Stress Analyst Name Role Phone Hua Blanton MD Primary Care Provider Unava ilable Encounter Details Date Type Department Care Team (Late st Contact Info) Description 07/15/2004 Results Only [facility] [place] [facility] [address] [place] [address] Hua Blanton MD Social History Tobacco Use [...] MCCORD Final Result [facility] [address] [place] [address] documented in this encounter Visit Diagnoses Not on filedocumented in this encounter Care Teams Aircraft Stress Analyst Relationship Specialty Start Date End Date Hua Blanton MD PCP - General 03/12/09 12/15/11 documented as of this encounter
--- OUTSIDE RECORDS SUMMARY | 2024-11-29 00:36 | XMS_ITS | Encounter Summary ---
Author Organization [facility] Address [address] [place] [address] Care Team Providers Care Return To Service Inspector Name Role Phone Hua Blanton MD Primary Care Provider Unava ilable Encounter Details Date Type Department Care Team (Latest Contact Info) Description 03/31/2009 8:33 EDT - 03/31/2009 23:59 EDT Hospital Encounter [facility] [address] [place] [address] Shai Garza MD [address] [place] [phone] Discharge Disposition: Home or Self Care [...] Self Skilled Nursing documented in this encounter OR Notes * OR Surgeon - Shai Garza MD - 03/31/2009 0000 EDT PROCEDURE REPORT PT TYPE: OP SERVICE DATE: 03/31/2009 SURGEON: Shai Garza MD TRUCK DRIVER: PREOPERATIVE DIAGNOSIS Left long trigger finger. POSTOPERATIVE [...] MD - Shai Garza MD A - [facility] Job ID: [id number] Document ID: [id number] cc: Hua Blanton MD documented in this encounter Miscellaneous Notes * Scanned Note-Null - Inpatient, Physician - 04/08/2009 1645 EDT * Scanned Note-Null - Inpatient, Physician - 04/08/2009 1645 EDT documented in this encounter Plan of Treatment Not on file documented as of this encounter Visit Diagnoses Not on filedocumented in this encounter Care Teams Return To Service Inspector Relationship Specialty Start Date End Date Hua Blanton MD PCP - General 03/12/09 12/15/11 documented as of this encounter
--- OUTSIDE RECORDS SUMMARY | 2024-11-29 00:36 | XMS_ITS | Encounter Summary ---
Author Organization [facility] Address [address] [place] [address] Care Team Providers Care Pan Reclaim Processor Name Role Phone Hua Blanton MD Primary Care Provider Unava ilable Encounter Details Date Type Department Care Team (Late st Contact Info) Description 03/07/2003 Results Only [facility] - [place] conversion [address] [place] [address] Hua Blanton MD Social History Tobacco Use [...] Results * PSA SCREEN (03/07/2003 9:05 EDT) [facility] PSA 3.3 0 - 3.5 ng/ml [facility] Comment: Serum PSA concentration should not be interpreted as absolute evidence for the presence or absence of malignant disease. Assayed utilizing [employer] chemiluminescent technology. Values obtained by using different assay methods cannot be used interchangeably. Assay changed to equimolar method 04/16/01. 03/07/2003 9:05 EDT 03/07/2003 13:29 EDT Hua Blanton MD CHEMISTRY & BLOOD GAS ORDERA BLES Final Result Performing Organization Address [facility] [[email or web address]] de Phone Number [facility] [address] [place] [address] * LIPID PROFILE (INCLUDES CHOLESTEROL, TRIGLYCERIDES, HDL, LDL) (03/07/2003 9:05 EDT) Pathologist [facility] Cholesterol 145 mg/dl [facility] Comment: Desirable:<200 Borderline:200-239 High Risk:>ni=234 Fasting Triglycerides 73 35 - 160 mg/dl [facility] Comment:Fasting HDL 54 mg/dl [facility] Comment: Highly Desirable:>60 Desirable:35-60 High Risk:<35 Fasting LDL, Calculated 76 mg/dl [facility] Comment: Desirable:<130 Borderline:130-159 High Risk:>gi=521 Fasting Chol/HDL Ratio 2.7 Fasting [facility] 03/07/2003 9:05 EDT 03/07/2003 13:29 EDT Hua Blanton MD CHEMISTRY & BLOOD GAS ORDERA BLES Final Result Performing Organization Address [facility] Co de Phone Number [facility] [address] [place] [address] * COMPREHENSIVE METABOLIC PANEL (CMP) (03/07/2003 9:05 EDT) Pathologist [facility] Potassium 4.4 3.5 - 5.0 mEq/L [facility] [...] Albumin 3.8 3.0 - 5.5 g/dl [facility] Comment:Fasting Total Protein 6.6 6.0 - [...] BLES Final Result [facility] [address] [place] [address] * HEMAGRAM (03/07/2003 9:05 EDT) WBC 4.00 [...] ORDERABLES Final Result [facility] [address] [place] [address] documented in this encounter Visit Diagnoses Not on filedocumented in this encounter Care Teams Pan Reclaim Processor Relationship Specialty Start Date End Date Hua Blanton MD PCP - General 03/12/09 12/15/11 documented as of this encounter
--- OUTSIDE RECORDS SUMMARY | 2024-11-29 00:36 | XMS_ITS | Encounter Summary ---
Author Organization [facility] Address [address] [place] [address] Care Team Providers Care Product Scientist Name Role Phone Hua Blanton MD Primary Care Provider Unava ilable Encounter Details Date Type Department Care Team (Late st Contact Info) Description 12/14/2004 Results Only [facility] General Surgery - [facility] [address] [place] [address] Jorge Luis Lee MD [address] [place] [address] Social History Tobacco Use Types [...] ORDE RABLES Final Result Performing Organization Address [facility] de Phone Number [facility] [address] [place] [address] * MAGNESIUM (12/14/2004 5:20 EST) Magnesium 1.7 1.7 - 2.8 mg/dl [facility] 12/14/2004 5:20 EST 12/14/2004 6:24 EST Jorge Luis Lee MD CHEMISTRY & BLOOD GAS ORDE RABLES Final Result Performing Organization Address [facility] de Phone Number [facility] [address] [place] [address] * ELECTROLYTES (12/14/2004 5:20 EST) Sodium 138 136 - 145 mEq/L [facility] Potassium 3.7 3.5 - 5.0 mEq/L [facility] Chloride 106 96 - 110 mEq/L [facility] CO2 27 24 - 32 mEq/L [facility] 12/14/2004 5:20 EST 12/14/2004 6:24 EST us Jorge Luis Lee MD CHEMISTRY & BLOOD GAS ORDE RABLES Final Result Performing Organization Address [facility]/ZIP Co de Phone Number [facility] [address] [place] [address] * (ABNORMAL) HEMAGRAM AND DIFFERENTIAL (12/14/2004 5:20 [...] ORDER CAITLYN Final Result Performing Organization Address [facility] Co de Phone Number [facility] [address] [place] [address] * CREATININE (12/14/2004 5:20 EST) Pathologist [facility] Creatinine 0.9 0.7 - 1.5 mg/dl [facility] 12/14/2004 5:20 EST 12/14/2004 6:24 EST Jorge Luis Lee MD HISTORICAL LAB FOR SQ LOAD Final Result Performing Organization Address [facility] Co de Phone Number [facility] [address] [place] [address] * HEMAGRAM AND DIFFERENTIAL (12/14/2004 5:20 EST) [...] ORDER CAITLYN Final Result Performing Organization Address [facility] Co de Phone Number [facility] [address] [place] [address] * (ABNORMAL) CALCIUM (12/14/2004 5:20 EST) Calcium 8.0(L) 8.5 - 10.5 mg/dl [facility] Calculated Calcium 9.0 8.5 - 10.5 mg/dl [facility] 12/14/2004 5:20 EST 12/14/2004 6:24 EST Jorge Luis Lee MD CHEMISTRY & BLOOD GAS ORDE RABLES Final Result Performing Organization Address [facility] Co de Phone Number [facility] [address] [place] [address] * BUN (12/14/2004 5:20 EST) BUN 12 10 - 26 mg/dl [facility] 12/14/2004 5:20 EST 12/14/2004 6:24 EST Jorge Luis Lee MD CHEMISTRY & BLOOD GAS ORDE RABBRENNAN Final Result Performing Organization Address [facility] Co de Phone Number [facility] [address] [place] [address] documented in this encounter Visit Diagnoses Not on filedocumented in this encounter Care Teams Product Scientist Relationship Specialty Start Date End Date Hua Blanton MD PCP - General 03/12/09 12/15/11 documented as of this encounter
--- OUTSIDE RECORDS SUMMARY | 2024-11-29 00:36 | XMS_ITS | Encounter Summary ---
Author Organization [facility] Address [address] [place] [address] Care Team Providers Care Tile Helper Name Role Phone Hua Blanton MD Primary Care Provider Unava ilable Encounter Details Date Type Department Care Team (Late st Contact Info) Description 12/13/2004 Before PRISM Converted Visit ([place]) [facility] - [place] conversion [address] [place] [address] Dalton Rodriguez MD [address] [place] [address] Social History Tobacco Use Types Packs/Day Years [...] on filedocumented in this encounter Care Teams Tile Helper Relationship Specialty Start Date End Date Hua Blanton MD PCP - General 03/12/09 12/15/11 documented as of this encounter
--- OUTSIDE RECORDS SUMMARY | 2024-11-29 00:36 | XMS_ITS | Encounter Summary ---
Author Organization [facility] Address [address] [place] [address] Care Team Providers Care Table Keeper Name Role Phone Unavailable Primary Care Provider Unavailabl e Encounter Details Date Type Department Care Team (Late st Contact Info) Description 04/08/2003 9:57 EDT - 04/08/2003 11:59 EDT Hospital Encounter [facility] [address] [place] [address] Catalina De La Cruz MD [address] [facility] [address] [facility] [address] [place] [phone] Discharge Disposition: Auto Discharge Social History Tobacco [...] ? [employer] ? Accession #: ? [id number] ? : ? 1945 (Age: 57) ??M [...] is entirely submitted in one cassette. ??(Prudencio Red)/[facility] End of Report [facility] 04/08/2003 04/08/2003 13: 57 EDT us Catalina De La Cruz MD PATHOLOGY ORDERABLES Final Resul t [facility] [address] [place] [address] documented in this encounter Visit Diagnoses Not on filedocumented in this encounter
--- OUTSIDE RECORDS SUMMARY | 2024-11-29 00:36 | XMS_ITS | Encounter Summary ---
Author Organization [facility] Address [address] [place] [address] Care Team Providers Care Buffing Wheel Inspector Name Role Phone Hua Blanton MD Primary Care Provider Unava ilable None, Provider Primary Care Provider Unavailabl e Darnell Taylor MD Primary Care Provider [phone] Darnell Taylor MD Primary Care Provider [phone] Lasha Angelo MD Primary Care Provider [phone] Sangita Nolasco MD Primary Care Provider [phone] Encounter Details Date Type Department Care Team (Late st Contact Info) Description 12/13/2004 Before PRISM Converted Visit ([place]) [facility] - [place] conversion [address] [place] [address] Dalton Rodriguez MD [address] [place] [address] Social History Tobacco Use Types Packs/Day Years [...] ORDER CAITLYN Final Result Performing Organization Address [facility] Phone Number [facility] [address] [place] [address] * PTT (12/13/2004 18:19 EST) PTT 30 23 - 34 secs [facility] Comment:Therapeutic Heparin range: 72-120 seconds 12/13/2004 18:1 9 EST 12/13/2004 18:20 EST us Default Emergency MD HEMATOLOGY & PF4 ORDERABLES Final Result Performing Organization Address [facility] Phone Number [facility] [address] [place] [address] * PROTIME (12/13/2004 18:19 EST) Pro Time [...] PF4 ORDERABLES Final Result Performing Organization Address [facility] Phone Number [facility] [address] [place] [address] * MAGNESIUM (12/13/2004 18:19 EST) Magnesium 1.8 1.7 - 2.8 mg/dl [facility] 12/13/2004 18:1 9 EST 12/13/2004 18:20 EST us Default Emergency MD CHEMISTRY & BLOOD GAS ORDER CAITLYN Final Result Performing Organization Address [facility] de Phone Number [facility] [address] [place] [address] * ELECTROLYTES (12/13/2004 18:19 EST) Sodium 142 [...] Final Result Performing Organization Address [facility] de Phone Number [facility] [address] [place] [address] * (ABNORMAL) LIVER FUNCTION TESTS (12/13/2004 18:19 [...] Final Result Performing Organization Address [facility] Co de Phone Number [facility] [address] [place] [address] * LIPASE (12/13/2004 18:19 EST) Lipase 35 0 - 250 U/L [facility] 12/13/2004 18:1 9 EST 12/13/2004 18:20 EST us Default Emergency MD CHEMISTRY & BLOOD GAS ORDER CAITLYN Final Result Performing Organization Address [facility] Co de Phone Number [facility] [address] [place] [address] * HOLD SST (12/13/2004 18:19 EST) Hold SST Hold for further testing. Specimen will be held for 30 days. [facility] 12/13/2004 18:1 9 EST 12/13/2004 18:20 EST us Default Emergency MD LAB INFO SERVICE AND SUPPOR T & PHONE RESULT Final Result Performing Organization Address [facility] Co de Phone Number [facility] [address] [place] [address] * HOLD PURPLE TOP (12/13/2004 18:19 EST) Hold Purple Top EDTA for hematology will be discarded after 48 hours, differential not available after 12 hours. [facility] 12/13/2004 18:1 9 EST 12/13/2004 18:20 EST us Default Emergency MD LAB INFO SERVICE AND SUPPOR T & PHONE RESULT Final Result Performing Organization Address [facility] de Phone Number [facility] [address] [place] [address] * HOLD GREEN TOP (12/13/2004 18:19 EST) Hold Green Top Hold for further testing. Specimen will be held for 30 days. [facility] 12/13/2004 18:1 9 EST 12/13/2004 18:20 EST us Default Emergency MD LAB INFO SERVICE AND SUPPOR T & PHONE RESULT Final Result Performing Organization Address [facility] Co de Phone Number [facility] [address] [place] [address] * HOLD BLUE TOP (12/13/2004 18:19 EST) Hold Blue Top Sample for coagulation will be discarded after 4 hours [facility] 12/13/2004 18:1 9 EST 12/13/2004 18:20 EST Default Emergency MD LAB INFO SERVICE AND SUPPOR T & PHONE RESULT Final Result Performing Organization Address [facility] de Phone Number [facility] [address] [place] [address] * CREATININE (12/13/2004 18:19 EST) Pathologist [facility] Creatinine 1.0 0.7 - 1.5 mg/dl [facility] 12/13/2004 18:1 9 EST 12/13/2004 18:20 EST Default Emergency HISTORICAL LAB FOR SQ LOAD Final Result Performing Organization Address [facility] Phone Number [facility] [address] [place] [address] * CK MB WITH TOTAL CK (12/13/2004 18:19 EST) Pathologist [facility] CK 151 0 - 250 U/L [facility] MB 0.4 0 - 5.0 ng/ml [facility] CK-MB Index Not calculated , normal MB. 0 - 2.5 [facility] 12/13/2004 18:1 9 EST 12/13/2004 18:20 EST Default Emergency CHEMISTRY & BLOOD GAS ORDER CAITLYN Final Result Performing Organization Address [facility] de Phone Number [facility] [address] [place] [address] * (ABNORMAL) HEMAGRAM AND DIFFERENTIAL (12/13/2004 18:19 [...] K/cmm [facility] RBC Morphology Normal [facility] Type of Diff: Manual [facility] 12/13/2004 18:1 9 EST 12/13/2004 18:20 EST us Default Emergency MD PACKAGES & DNA PROBE ORDERA BLES Final Result Performing Organization Address [facility] de Phone Number [facility] [address] [place] [address] * BUN (12/13/2004 18:19 EST) BUN 14 10 - 26 mg/dl [facility] 12/13/2004 18:1 9 EST 12/13/2004 18:20 EST us Default Emergency CHEMISTRY & BLOOD GAS ORDER CAITLYN Final Result Performing Organization Address City/[facility]/ZIP Co de Phone Number [facility] [address] [place] [address] * TESTS ADDED BY PHONE (12/13/2004 18:19 EST) Tests to be added STAT PRO,PTT,CB CDF [facility] 12/13/2004 18:1 9 EST 12/13/2004 18:20 EST us Default Emergency MD HEMATOLOGY & PF4 ORDERABLES Final Result Performing Organization Address City/[facility] Co de Phone Number [facility] [address] [place] [address] * TESTS ADDED BY PHONE (12/13/2004 18:19 EST) Tests to be added STAT LYT,BUN,CR EA,MG,CKMB ,TROP,LIVR ,LIPA [facility] 12/13/2004 18:1 9 EST 12/13/2004 18:20 EST us Default Emergency MD CHEMISTRY & BLOOD GAS ORDER CAITLYN Final Result Performing Organization Address [facility] de Phone Number [facility] [address] [place] [address] documented in this encounter Visit Diagnoses Not on filedocumented in this encounter Additional Health Concerns Infection Onset Date Last Indicated Resolved Time R/O COVID-19 04/15/2020 04/15/2020 04/20/2020 22:1 6 EDT documented as of this encounter Care Teams Buffing Wheel Inspector Relationship Specialty Start Date End Date Hua Blanton MD PCP - General 03/12/09 12/15/11 None, Provider PCP - General 12/16/11 03/01/12 Darnell Taylor MD [address] [place] [address] PCP - General 03/02/12 07/29/19 Darnell Taylor MD [address] [place] [address] PCP - General 07/30/19 01/08/20 Lasha Aneglo MD [address] [place] [address] PCP - General Family Medicine - Primary Care 01/09/20 06/23/21 Sangita Nolasco MD [address] [place] [address] PCP - General 06/24/21 documented as of this encounter
--- OUTSIDE RECORDS SUMMARY | 2024-11-29 00:36 | XMS_ITS | Encounter Summary ---
Author Organization [facility] Address [address] [place] [address] Care Team Providers Care Morning Nanny Name Role Phone Unavailable Primary Care Provider Unavailabl e Encounter Details Date Type Department Care Team (Late st Contact Info) Description 03/07/2006 10:32 EDT Hospital Encounter [facility] [address] [place] [address] Randy Booth MD [address] [place] [address], [address] [place] [phone] Social History Tobacco Use Types Packs/Day Years [...]
--- OUTSIDE RECORDS SUMMARY | 2024-11-29 00:36 | XMS_ITS | Encounter Summary ---
Author Organization [facility] Address [address] [place] [address] Care Team Providers Care Him Clerk Name Role Phone Kami Cates MD Primary Care Provider Unava ilable Encounter Details Date Type Department Care Team (Late st Contact Info) Description 01/21/2009 Before PRISM Converted Visit ([place]) [facility] - [place] conversion [address] [place] [address] Matty Renee MD [address] [place] [phone] Social History Tobacco Use Types Packs/Day Years Used Date Smoking Tobacco: Never Assessed Sex and Gender Information Value Date Recorded Sex Assigned at Male 03/18/2022 9:53 EDT Legal Sex Male 18:08 EST Gender Identity Male 09/16/2019 15:02 EST Sexual Orientation Not on file documented as of this encounter Procedure Notes * Matty Renee MD - 11/16/2009 2324 EST [facility] Colonoscopy Procedure Report Physician: MATTY RENEE [...] ileum, confirmed by appendiceal orifice, cecal strap (moapa's foot), and ileocecal valve. The scope was [...] MATTY RENEE MD on 01/21/2009 at 13:51 [facility] Document ID: [id number] documented in this encounter Plan of Treatment Not on file documented as of this encounter Visit Diagnoses Not on filedocumented in this encounter Care Teams Him Clerk Relationship Specialty Start Date End Date Kami Cates MD PCP - General 03/12/09 12/15/11 documented as of this encounter
--- OUTSIDE RECORDS SUMMARY | 2024-11-29 00:36 | XMS_ITS | Encounter Summary ---
Author Organization [facility] Address [address] [place] [address] Care Team Providers Care Mold Filler Plastic Dolls Name Role Phone Hua Blanton MD Primary Care Provider Unava ilable None, Provider Primary Care Provider Unavailabl e Darnell Taylor MD Primary Care Provider [phone] Darnell Taylor MD Primary Care Provider [phone] Lasha Angelo MD Primary Care Provider [phone] Sangita Nolasco MD Primary Care Provider [phone] Encounter Details Date Type Department Care Team (Late st Contact Info) Description 12/13/2004 Before PRISM Converted Visit ([place]) [facility] - [place] conversion [address] [place] [address] Dalton Rodriguez MD [address] [place] [address] Social History Tobacco Use Types Packs/Day Years [...] documented as of this encounter Care Teams Mold Filler Plastic Dolls Relationship Specialty Start Date End Date Hua Blanton MD PCP - General 03/12/09 12/15/11 None, Provider PCP - General 12/16/11 03/01/12 Darnell Taylor MD [address] [place] [address] PCP - General 03/02/12 07/29/19 Darnell Taylor MD [address] [place], [place] [address] PCP - General 07/30/19 01/08/20 Lasha Angelo MD [address] [place], [place] [address] PCP - General Family Medicine - Primary Care 01/09/20 06/23/21 Sangita Nolasco MD [address] [place], [place] [address] PCP - General 06/24/21 documented as of this encounter
--- OUTSIDE RECORDS SUMMARY | 2024-11-29 00:36 | XMS_ITS | Encounter Summary ---
Author Organization [facility] Address [address] [place] [address] Care Team Providers Care Animal Husbandman Name Role Phone Hua Blanton MD Primary Care Provider Unava ilable None, Provider Primary Care Provider Unavailabl e Darnell Taylor MD Primary Care Provider Darnell Taylor MD Primary Care Provider [phone] Lasha Angelo MD Primary Care Provider [phone] Sangita Nolasco MD Primary Care Provider [phone] Encounter Details Date Type Department Care Team (Late st Contact Info) Description 12/13/2004 Before PRISM Converted Visit ([place]) [facility] - [place] conversion [address] [place] [address] Dalton Rodriguez MD [address] [place] [address] Social History Tobacco Use Types Packs/Day Years [...] documented as of this encounter Care Teams Animal Husbandman Relationship Specialty Start Date End Date Hua Blanton MD PCP - General 03/12/09 12/15/11 None, Provider PCP - General 12/16/11 03/01/12 Darnell Taylor MD [address] [place] [address] PCP - General 03/02/12 07/29/19 Darnell Taylor MD [address] [place], [place] [address] PCP - General 07/30/19 01/08/20 Lasha Angelo MD [address] [place], [place] [address] PCP - General Family Medicine - Primary Care 01/09/20 06/23/21 Sangita Nolasco MD [address] [place], [place] [address] PCP - General 06/24/21 documented as of this encounter
--- OUTSIDE RECORDS SUMMARY | 2024-11-29 00:36 | XMS_ITS | Encounter Summary ---
Author Organization [facility] Address [address] [place] [address] Care Team Providers Care Railway Equipment Operator Name Role Phone Unavailable Primary Care Provider Unavailabl e Encounter Details Date Type Department Care Team (Late st Contact Info) Description 03/01/2006 10:47 EDT Hospital Encounter [address] [address] Randy Booth MD [address] [place] [address], Level [address] [place] [phone] Social History Tobacco Use Types Packs/Day Years [...] ORDERABLES Final Resu lt Performing Organization Address [facility] de Phone Number [facility] [address] [place] [address] * T4 (03/01/2006 12:10 EDT) Pathologist [facility] T4, Total 7.4 4.5 - 10.9 ug/dL [facility] 03/01/2006 12:1 0 EDT 03/01/2006 12:39 EDT Randy Booth MD CHEMISTRY & BLOOD GAS ORDERABLES Final Result Performing Organization Address [facility] de Phone Number [facility] [address] [place] [address] * SS-B/LA ANTIBODY, IGG, SERUM (03/01/2006 12:10 EDT) [facility] Autoantibodies to SS B/La <1.0Unit: U(Note) -- EXPECTED VALUES -- ? (Ref Range) <25.0 ? Test Performed by: ? [facility] Dpt of Lab Med and Pathology ? [address] [facility], [place] [address] ? Manager Contact: Kamila Starks M.D. ? [facility] 03/01/2006 12:1 0 EDT 03/01/2006 12:39 EDT Randy Booth MD IMMUNOLOGY AND SEROLOGY ORDERABL ES Final Result [facility] [address] [place] [address] * SS-A/RO ANTIBODY, IGG, SERUM (03/01/2006 12:10 EDT) Autoantibodies to SS A/Ro <1.0Unit: U(Note) -- EXPECTED VALUES -- ? (Ref Range) <25.0 ? Test Performed by: ? [facility] Dpt of Lab Med and Pathology ? [address] , [place] [address] ? Manager Contact: Kamila Starks M.D. ? [facility] 03/01/2006 12:1 0 EDT 03/01/2006 12:39 EDT us Rup Tandan MD IMMUNOLOGY AND SEROLOGY ORDERABL ES Final Result [facility] [address] [place] [address] * (ABNORMAL) PYRUVIC ACID, BLOOD (03/01/2006 12:10 EDT) Pyruvic Acid, Blood 0.07Unit: mmol/L(Note) -- EXPECTED VALUES -- ? (Ref Range) 0.08 to 0.16 ? Test Performed by: ? [facility] Dpt of Lab Med and Pathology ? [address] [place] [address] ? Manager Contact: Kamila Starks M.D. ?(L) [facility] 03/01/2006 12:1 0 EDT 03/01/2006 12:39 EDT us Randy Booth MD CHEMISTRY & BLOOD GAS ORDERABLES Final Result [facility] [address] [place] [address] * MYOGLOBIN (03/01/2006 12:10 EDT) Myoglobin, Serum 0.04Unit: ug/mL(Note) -- EXPECTED VALUES -- ? (Ref Range) 0.00 to 0.09 ? Test Performed by: ? [facility] Dpt of Lab Med and Pathology ? [address] [place] [address] ? Manager Contact: Kamila Starks M.D. ? [facility] 03/01/2006 12:1 0 EDT 03/01/2006 12:39 EDT Randy Booth MD CHEMISTRY & BLOOD GAS ORDERABLES Final Result Performing Organization Address [facility] de Phone Number [facility] [address] [place] [address] * LYME ANTIBODY (03/01/2006 12:10 EDT) Pathologist [facility] Lyme Ab Neg NEGAT [facility] 03/01/2006 12:1 0 EDT 03/01/2006 12:39 EDT Randy Booth MD IMMUNOLOGY AND SEROLOGY ORDERABL ES Final Result Performing Organization Address [facility] de Phone Number [facility] [address] [place] [address] * LACTIC ACID (03/01/2006 12:10 EDT) Pathologist [facility] Lactic Acid 1.2 0.7 - 2.1 mmol/L [facility] 03/01/2006 12:1 0 EDT 03/01/2006 12:39 EDT Randy Booth MD CHEMISTRY & BLOOD GAS ORDERABLES Final Result Performing Organization Address [facility] de Phone Number [facility] [address] [place] [address] * IMMUNOFIXATION/SPEP (03/01/2006 12:10 EDT) Total Protein [...] GAS ORDERABLES Final Result Performing Organization Address [facility] de Phone Number [facility] [address] [place] [address] * FOLATE (03/01/2006 12:10 EDT) [facility] Folate 16.2 ng/mL [facility] Comment: Deficient: ??Less than 3.4 ng/mL Indeterminate: ??3.4-5.4 ng/mL Normal: ??Greater than 5.4 ng/mL 03/01/2006 12:1 0 EDT 03/01/2006 12:39 EDT Randy Booth MD CHEMISTRY & BLOOD GAS ORDERABLES Final Result Performing Organization Address [facility] de Phone Number [facility] [address] [place] [address] * ANTI DNA (SINGLE STRAND) (03/01/2006 12:10 EDT) [facility] Anti DNA (Single Stranded) 25Unit: U/mL(Note) REFERENCE [...] SLE patients. ? Serum containing antibodies recognizing swinomish ? (double-stranded) DNA may give a false positive ? result in this assay. ? Test Performed by: [facility] ? [address] ? [place] [address] ? [facility] 03/01/2006 12:1 0 EDT 03/01/2006 12:39 EDT Randy Booth MD IMMUNOLOGY AND SEROLOGY ORDERABL ES Final Result Performing Organization Address [facility] de Phone Number [facility] [address] [place] [address] * VITAMIN B12 (03/01/2006 12:10 EDT) [facility] Vitamin B-12 457 250 - 1100 pg/ml [facility] 03/01/2006 12:1 0 EDT 03/01/2006 12:39 EDT Randy Booth MD CHEMISTRY & BLOOD GAS ORDERABLES Final Result Performing Organization Address [facility] de Phone Number [facility] [address] [place] [address] * ALDOLASE (03/01/2006 12:10 EDT) Pathologist [facility] Aldolase 5.7Unit: U/L(Note) -- EXPECTED VALUES -- ? (Ref Range) <7.4 ? Test Performed by: ? [facility] Dpt of Lab Med and Pathology ? [address] [facility], [place] [address] ? Manager Contact: Kamila Starks M.D. ? [facility] 03/01/2006 12:1 0 EDT 03/01/2006 12:39 EDT us Rufelipe Booth MD CHEMISTRY & BLOOD GAS ORDERABLES Final Result [facility] [address] [place] [address] documented in this encounter Visit Diagnoses Not on filedocumented in this encounter Additional Health Concerns Infection Onset Date Last Indicated Resolved Time R/O COVID-19 04/15/2020 04/15/2020 04/20/2020 22:1 6 EDT documented as of this encounter
--- OUTSIDE RECORDS SUMMARY | 2024-11-29 00:36 | XMS_ITS | Encounter Summary ---
Author Organization [facility] Address [address] [place] [address] Care Team Providers Care Hospital Aides And Assistants Teacher Name Role Phone Unavailable Primary Care Provider Unavailabl e Encounter Details Date Type Department Care Team (Late st Contact Info) Description 01/20/2000 17:46 EDT Hospital Encounter [address] [address] Edgar Concepcion MD Social History Tobacco Use [...]
--- OUTSIDE RECORDS SUMMARY | 2024-11-29 00:36 | XMS_ITS | Encounter Summary ---
Author Organization [facility] Address [address] [place] [address] Care Team Providers Care Hat Trimmer Name Role Phone Unavailable Primary Care Provider Unavailabl e Encounter Details Date Type Department Care Team (Latest Contact Info) Description 07/15/2004 13:00 EDT Hospital Encounter [facility] [address] [place] [address] Hua Blanton MD Discharge Disposition: Auto Discharge [...]
--- OUTSIDE RECORDS SUMMARY | 2024-11-29 00:36 | XMS_ITS | Encounter Summary ---
Author Organization [facility] Address [address] [place] [address] Care Team Providers Care Assistant Project Engineer Name Role Phone Unavailable Primary Care Provider Unavailabl e Encounter Details Date Type Department Care Team (Late st Contact Info) Description 05/03/2006 9:28 EDT Hospital Encounter [address] [address] Randy Booth MD [address] [place] [address], Level 2 [place] [phone] Social History Tobacco Use Types Packs/Day Years [...]
--- OUTSIDE RECORDS SUMMARY | 2024-11-29 00:36 | XMS_ITS | Encounter Summary ---
Author Organization [facility] Address [address] [place] [address] Care Team Providers Care Junior Web Developer Name Role Phone Hua Blanton MD Primary Care Provider Unava ilable None, Provider Primary Care Provider Unavailabl e Darnell Taylor MD Primary Care Provider Darnell Taylor MD Primary Care Provider [phone] Lasha Angelo MD Primary Care Provider [phone] Sangita Nolasco MD Primary Care Provider [phone] Encounter Details Date Type Department Care Team (Late st Contact Info) Description 12/13/2004 Before PRISM Converted Visit (Maple) [facility] - Maple conversion [address] [place] [address] Dalton Rodriguez MD [address] [place] [address] Social History Tobacco Use Types Packs/Day Years [...] documented as of this encounter Care Teams Junior Web Developer Relationship Specialty Start Date End Date Hua Blanton MD PCP - General 03/12/09 12/15/11 None, Provider PCP - General 12/16/11 03/01/12 Darnell Taylor MD [address] [place] [address] PCP - General 03/02/12 07/29/19 Darnell Taylor MD [address] [place], [place] [address] PCP - General 07/30/19 01/08/20 Lasha Angelo MD [address] [place], [place] [address] PCP - General Family Medicine - Primary Care 01/09/20 06/23/21 Sangita Nolasco MD [address] [place], [place] [address] PCP - General 06/24/21 documented as of this encounter
--- OUTSIDE RECORDS SUMMARY | 2024-11-29 00:37 | XMS_ITS | Encounter Summary ---
Author Organization [facility] [address] [place] [address] Care Team Providers Care Straightener Name Role Phone Jesika Harmon APRN Primary Care Provider [phone] Encounter Details Date Type Department Care Team (Late st Contact Info) Description 10/23/2023 Orders [place] [address] [facility] [place] [address] Acute gastric ulcer without hemorrhage or perforation [...] obstruction documented in this encounter Care Teams Straightener Relationship Specialty Start Date End Date Jesika Harmon APRN [address] [place] [address] PCP - General Family Medicine 12/09/22 documented as of this encounter
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
--- OUTSIDE RECORDS SUMMARY | 2024-11-29 00:37 | XMS_ITS | Encounter Summary ---
Author Organization [facility] [address] [place] [address] Care Team Providers Care Immunology Teacher Name Role Phone Jesika Harmon BHARGAV Primary Care Provider [phone] Encounter Details Date Type Department Care Team (Late st Contact Info) Description 10/23/2023 2:00 PM EST - 10/23/2023 3:15 PM EST Surgery [place] [address] Marilee Brambila MD [facility] [place] [address] EGD WITH BIOPSY (WRVU 2.39) Social History [...] the day after the test, use an aqmq-yhh-jznowhr spray or lozenges to numbyour throat. Warm [...] occurs, please contact your doctor. Please call [phone] before 8pm Mon-Fri with problems, questions, or concerns. If you call after 8pm or on weekends, call the Hospital at [phone] and ask for the Golf Shoe Spike Assembler talent acquisition project manager and the utility operator yarn will contact that person for you. When should you call for help? Call [phone] anytime you think you may need emergency [...] more? You can view health information on [facility], your personal patient account. Log in or sign up today. Content Version: 12.2 ?? [id number] [employer] [employer]. Care instructions adapted under license by [facility]. If you have questions about a medical condition or this instruction, always ask your healthcare professional. [employer] disclaims any warranty or liability for your [...] Routine 10/23/2023 3:04 PM EST Colonoscopy, Biopsy (85430) 10/23/2023 2:43 PM EST Heartburn Dysphagia, unspecified type Voice hoarseness Lower abdominal pain BRBPR (bright red blood per rectum) Personal history of colonic polyps Upper Gi Endoscopy, Biopsy (23428) 10/23/2023 2:43 PM EST Heartburn Dysphagia, unspecified [...] 10/23/2023 4:48 PM EST Narrative [facility] - 10/23/2023 4:48 PM EST Specimen requisition ordered. ??Separate Pathology report to follow Marilee Brambila MD PATHOLOGY/CYTOLOGY O RDCHANO Performing Organization Address [facility] [place] [address] * Specimen to Pathology (10/23/2023 4:48 PM EST) AP Specimen 10/23/2023 4:48 PM EST 10/23/2023 4:48 PM EST Narrative [facility] - 10/23/2023 4:48 PM EST Specimen requisition ordered. ??Separate Pathology report to follow Marilee Brambila MD PATHOLOGY/CYTOLOGY O PAULA Performing Organization Address [facility] [place] [address] * Specimen to Pathology (10/23/2023 4:48 PM EST) AP Specimen 10/23/2023 4:48 PM EST 10/23/2023 4:48 PM EST Narrative [facility] - 10/23/2023 4:48 PM EST Specimen requisition ordered. ??Separate Pathology report to follow Marilee Brambila MD PATHOLOGY/CYTOLOGY O RDCHANO Performing Organization Address [facility] [place] [address] * Specimen to Pathology (10/23/2023 4:48 PM EST) AP Specimen 10/23/2023 4:48 PM EST 10/23/2023 4:48 PM EST Narrative [facility] - 10/23/2023 4:48 PM EST Specimen requisition ordered. ??Separate Pathology report to follow Marilee Brambila MD PATHOLOGY/CYTOLOGY O RDCHANO Performing Organization Address City/[facility] [place] [address] * Specimen to Pathology (10/23/2023 3:37 PM EST) AP Specimen 10/23/2023 3:37 PM EST 10/23/2023 3:37 PM EST Narrative [facility] - 10/23/2023 3:37 PM EST Specimen requisition ordered. ??Separate Pathology report to follow Marilee Brambila MD PATHOLOGY/CYTOLOGY O PAULA Performing Organization Address [facility] [place] [address] * Specimen to Pathology (10/23/2023 3:37 PM EST) AP Specimen 10/23/2023 3:37 PM EST 10/23/2023 3:37 PM EST Narrative [facility] - 10/23/2023 3:37 PM EST Specimen requisition ordered. ??Separate Pathology report to follow Marilee Brambila MD PATHOLOGY/CYTOLOGY O PAULA Performing Organization Address [facility] [place] [address] * Specimen to Pathology (10/23/2023 3:37 PM EST) AP Specimen 10/23/2023 3:37 PM EST 10/23/2023 3:37 PM EST Narrative [facility] - 10/23/2023 3:37 PM EST Specimen requisition ordered. ??Separate Pathology report to follow Marilee Brambila MD PATHOLOGY/CYTOLOGY O PAULA Performing Organization Address [facility] [place] [address] * Specimen to Pathology (10/23/2023 3:37 PM EST) AP Specimen 10/23/2023 3:37 PM EST 10/23/2023 3:37 PM EST Narrative [facility] - 10/23/2023 3:37 PM EST Specimen requisition ordered. ??Separate Pathology report to follow Marilee Brambila MD PATHOLOGY/CYTOLOGY O PAULA Performing Organization Address [facility]/ZIP Co de Phone Number [facility] [address] * Specimen to Pathology (10/23/2023 3:37 PM EST) AP Specimen 10/23/2023 3:37 PM EST 10/23/2023 3:37 PM EST Narrative [facility] - 10/23/2023 3:37 PM EST Specimen requisition ordered. ??Separate Pathology report to follow Marilee Brambila MD PATHOLOGY/CYTOLOGY O RDERABLES Performing Organization Address [facility] [place] [address] * Surgical Pathology Report (10/23/2023 3:04 PM EST) Final Diagnosis [id number] ? Location: 4T; 08; A The signing [...] Grace Verified: ??11/01/2023 18:53 ??Pathologist Performed at: ??[facility] Dept. of Pathology, [place] [address] Quenching Machine Operator: Yareli Hobbs MD, AP, ??CLIA Certificate: [id number] SPECIMEN(S) SUBMITTED A - duodenum biopsies, biopsy [...] labeled I1-I2. ??sdy 11/01/2023 6:53 PM EST [facility] GI Biopsy 10/23/2023 3:04 PM [...] MD PATHOLOGY/CYTOLOGY Osmel MITCHELL Performing Organization Address [facility]/State/[facility] Co de Phone Number [facility] [address] [place] [address] * UPPER GI ENDOSCOPY (10/23/2023 2:42 PM EST) UPPER GI ENDOSCOPY [facility] Endoscopy ___ Procedure Date: 10/23/2023 2:42 PM ? Patient Name: Barrett Salvador ? N: [id number] ? Date of : 1945 ? Age: 77 ? Order #: [id number] ? Instrument Name: [id number]- [id number] ? ___ Procedure: ? Upper GI endoscopy [...] given location. Please ? call us at [phone] to schedule. ? Attending Participation: ? I personally performed the entire procedure. ? _ Marilee Brambila MD 10/23/2023 5:17:49 PM Number of Addenda: 0 Note Initiated On: 10/23/2023 2:42 PM [facility] 10/23/2023 2:42 PM EST Jesika Harmon FLOOR DIRECTOR GENERAL SURGICAL O RDERABLES [facility] * COLONOSCOPY (10/23/2023 2:41 PM EST) COLONOSCOPY [facility] Endoscopy Procedure Date: 10/23/2023 2:41 PM ? Patient Name: Barrett Salvador ? N: [id number] ? Date of : 1945 ? Age: 77 ? Order #: [id number] ? Instrument Name: [id number]- [id number] ? Procedure: ? Colonoscopy Indications: ? Hematochezia [...] preparation was ? evaluated using the BBPS ([place] ? Bowel Preparation Scale) with ? scores [...] RN) documented in this encounter Care Teams Immunology Teacher Relationship Specialty Start Date End Date Jesika Harmon APRN [address] [place] [address] PCP - General Family Medicine 12/09/22 documented as of this encounter
--- OUTSIDE RECORDS SUMMARY | 2024-11-29 00:37 | XMS_ITS | Encounter Summary ---
[place] [address] Care Team Providers Care Reciprocating Drill Operator Name Role Phone Jesika Harmon APRN Primary Care Provider +1- [phone] Encounter Details Date Type Department Care Team (Late st Contact Info) Description 07/07/2023 Telephone [place] [phone] Natalie Diez Social History Tobacco Use Types [...] inquire if patient can come in for TELEPHONE DIRECTORY DELIVERER for a MBS on a different day than a Monday as Radiology does not have a provider available at this time to coordinate with. documented in this encounter Plan of Treatment Not on file documented as of this encounter Visit Diagnoses Not on filedocumented in this encounter Care Teams Reciprocating Drill Operator Relationship Specialty Start Date End Date Jesika Harmon APRN [address] [place] [address] PCP - General Family Medicine 12/09/22 documented as of this encounter
--- OUTSIDE RECORDS SUMMARY | 2024-11-29 00:37 | XMS_ITS | Encounter Summary ---
Author Organization [facility] [place] [address] Care Team Providers Care Radiology Asst Name Role Phone Jesika Harmon BHARGAV Primary Care Provider +1- [phone] Encounter Details Date Type Department Care Team (Late st Contact Info) Description 08/24/2023 Telephone [place] [phone] Sarahi Alva Social History Tobacco Use Types [...] - 08/24/2023 3:51 PM EST Barrett Madeleine [id number] Diagnosis/Indication: dysphagia, heartburn refractory to PPI >5 [...] Colonoscopy before? Yes: Date 20 years at [facility] If yes, did you have any problems [...] procedure? No You must have a responsible libertarian who will drive you to your procedure, stay on campus for the entire duration of your procedure, and drive you home from your procedure. Who will likely be your armor reconnaissance vehicle driver for the procedure? *Please Verify the [...] on filedocumented in this encounter Care Teams Radiology Asst Relationship Specialty Start Date End Date Jesika Harmon APRN [address] [place] [address] PCP - General Family Medicine 12/09/22 documented as of this encounter
--- OUTSIDE RECORDS SUMMARY | 2024-11-29 00:37 | XMS_ITS | Encounter Summary ---
Author Organization [facility] [place] [address] Care Team Providers Care Audioprosthologist Name Role Phone Jesika Harmon APRN Primary Care Provider +1- [phone] Encounter Details Date Type Department Care Team [...] on filedocumented in this encounter Care Teams Audioprosthologist Relationship Specialty Start Date End Date Jesika Harmon APRN [address] [place] [address] PCP - General Family Medicine 12/09/22 documented as of this encounter
--- OUTSIDE RECORDS SUMMARY | 2024-11-29 00:37 | XMS_ITS | Clinical Summary ---
[place] [address] Care Team Providers Care Police Liaison Name Role Phone Jesika Harmon BHARGAV Primary Care Provider +1- [phone] Allergies Active Allergy Reactions Criticality Noted Date [...] Care Team Description 09/16/2024 [place] [address] Marilee Brambila MD Acute gastric ulcer without [...] 2 965 - 1966 Smokeless Tobacco: Never Tobacco [...] * COLONOSCOPY (10/23/2023 2:41 PM EST) COLONOSCOPY [facility] Endoscopy Procedure Date: 10/23/2023 2:41 PM ? Patient Name: Barrett Salvador ? Date of : 1945 ? Age: 77 ? Order #: [id number] ? Instrument Name: [id number] ? Procedure: ? Colonoscopy Indications: ? Hematochezia [...] preparation was ? evaluated using the BBPS (Arnett ? Bowel Preparation Scale) with ? scores [...] Recently Relevant to Health Maintenance Care Teams Police Liaison Relationship Specialty Start Date End Date Jesika Harmon APRN [address] [place] [address] PCP - General Family Medicine 12/09/22
--- OUTSIDE RECORDS SUMMARY | 2024-11-29 00:37 | XMS_ITS | Encounter Summary ---
Author Organization [facility] Desirae veláz[place] [address] Care Team Providers Care Marketing Support Specialist Name Role Phone Jesika Harmon BHARGAV Primary Care Provider +1- [phone] Encounter Details Date Type Department Care Team (Latest Contact Info) Description 10/23/2023 1:04 PM EST - 10/23/2023 5:43 PM EST Hospital [place] [address] Marilee Brambila MD [facility] [place] [address] Discharge Disposition: Home Social History Tobacco Use [...] the day after the test, use an dynr-ffq-tyztvpn spray or lozenges to numbyour throat. Warm [...] occurs, please contact your doctor. Please call [phone] before 8pm Mon-Fri with problems, questions, or concerns. If you call after 8pm or on weekends, call the Hospital at [phone] and ask for the Supervisor Patching functional analyst and the cut off saw operator pipe blanks will contact that person for you. When should you call for help? Call [phone] anytime you think you may need emergency [...] more? You can view health information on [employer], your personal patient account. Log in or sign up today. Content Version: 12.2 ?? 4549-2430 [employer]. Care instructions adapted under license by [facility]. If you have questions about a medical condition or this instruction, always ask your healthcare professional. [employer] disclaims any warranty or liability for your [...] Routine 10/23/2023 3:04 PM EST Colonoscopy, Biopsy (52054) 10/23/2023 2:43 PM EST Heartburn Dysphagia, unspecified type Voice hoarseness Lower abdominal pain BRBPR (bright red blood per rectum) Personal history of colonic polyps Upper Gi Endoscopy, Biopsy ([id number]) 10/23/2023 2:43 PM EST Heartburn Dysphagia, unspecified type Voice hoarseness Lower abdominal pain BRBPR (bright red blood per rectum) Personal history of colonic polyps UPPER GI ENDOSCOPY Routine 10/23/2023 2: 42 PM EST COLONOSCOPY Routine 10/23/2023 2:41 PM EST documented in this encounter Results * Specimen to Pathology (10/23/2023 4:48 PM EST) AP Specimen 10/23/2023 4:48 PM EST 10/23/2023 4:48 PM EST Narrative [facility] - 10/23/2023 4:48 PM EST Specimen requisition ordered. ??Separate Pathology report to follow Marilee Brambila MD PATHOLOGY/CYTOLOGY O RDERABLES Performing Organization Address City/[facility] [place] [address] * Specimen to Pathology (10/23/2023 4:48 PM EST) AP Specimen 10/23/2023 4:48 PM EST 10/23/2023 4:48 PM EST Narrative [facility] - 10/23/2023 4:48 PM EST Specimen requisition ordered. ??Separate Pathology report to follow Marilee Brambila MD PATHOLOGY/CYTOLOGY O RDERABLES Performing Organization Address [facility] [place] [address] * Specimen to Pathology (10/23/2023 4:48 PM EST) AP Specimen 10/23/2023 4:48 PM EST 10/23/2023 4:48 PM EST Narrative [facility] - 10/23/2023 4:48 PM EST Specimen requisition ordered. ??Separate Pathology report to follow Marilee Brambila MD PATHOLOGY/CYTOLOGY O RDERABLES Performing Organization Address [facility] [place] [address] * Specimen to Pathology (10/23/2023 4:48 PM EST) AP Specimen 10/23/2023 4:48 PM EST 10/23/2023 4:48 PM EST Narrative [facility] - 10/23/2023 4:48 PM EST Specimen requisition ordered. ??Separate Pathology report to follow Marilee Brambila MD PATHOLOGY/CYTOLOGY O RDERABLES Performing Organization Address City/[facility] [place] [address] * Specimen to Pathology (10/23/2023 3:37 PM EST) AP Specimen 10/23/2023 3:37 PM EST 10/23/2023 3:37 PM EST Narrative [facility] - 10/23/2023 3:37 PM EST Specimen requisition ordered. ??Separate Pathology report to follow Marilee Brambila MD PATHOLOGY/CYTOLOGY O PAULA Performing Organization Address City/[facility] [place] [address] * Specimen to Pathology (10/23/2023 3:37 PM EST) AP Specimen 10/23/2023 3:37 PM EST 10/23/2023 3:37 PM EST Narrative [facility] - 10/23/2023 3:37 PM EST Specimen requisition ordered. ??Separate Pathology report to follow Marilee Brambila MD PATHOLOGY/CYTOLOGY O PAULA Performing Organization Address [facility] [place] [address] * Specimen to Pathology (10/23/2023 3:37 PM EST) AP Specimen 10/23/2023 3:37 PM EST 10/23/2023 3:37 PM EST Narrative [facility] - 10/23/2023 3:37 PM EST Specimen requisition ordered. ??Separate Pathology report to follow Marilee Brambila MD PATHOLOGY/CYTOLOGY O PAULA Performing Organization Address [facility] [place] [address] * Specimen to Pathology (10/23/2023 3:37 PM EST) AP Specimen 10/23/2023 3:37 PM EST 10/23/2023 3:37 PM EST Narrative [facility] - 10/23/2023 3:37 PM EST Specimen requisition ordered. ??Separate Pathology report to follow Marilee Brambila MD PATHOLOGY/CYTOLOGY O PAULA Performing Organization Address [facility]/ZIP Co de Phone Number [facility] [address] * Specimen to Pathology (10/23/2023 3:37 PM EST) AP Specimen 10/23/2023 3:37 PM EST 10/23/2023 3:37 PM EST Narrative [facility] - 10/23/2023 3:37 PM EST Specimen requisition ordered. ??Separate Pathology report to follow Marilee Brambila MD PATHOLOGY/CYTOLOGY O RDERABLES Performing Organization Address [facility] Co de Phone Number [facility] [place] [address] * Surgical Pathology Report (10/23/2023 3:04 PM EST) Final Diagnosis [id number] ? Location: 4T; EA08; A The signing [...] Grace Verified: ??11/01/2023 18:53 ??Pathologist Performed at: ??-[facility] [place]ology, [place] [address] Solar Sales Assessor: Yareli Hobbs MD, FCAP, ??CLIA Certificate: [id number] SPECIMEN(S) SUBMITTED A - duodenum biopsies, biopsy [...] labeled I1-I2. ??sdy 11/01/2023 6:53 PM EST [facility] GI Biopsy 10/23/2023 3:04 PM [...] MD PATHOLOGY/CYTOLOGY O PAULA Performing Organization Address [facility]/State/ZIP Co de Phone Number [facility] [address] [place] [address] * UPPER GI ENDOSCOPY (10/23/2023 2:42 PM EST) UPPER GI ENDOSCOPY [facility] Endoscopy ___ Procedure Date: 10/23/2023 2:42 PM ? Patient Name: Barrett Salvador ? N: [id number] ? Date of : 1945 ? Age: 77 ? Order #: [id number] ? Instrument Name: EG-760R- [id number] ? ___ Procedure: ? Upper GI endoscopy [...] given location. Please ? call us at [phone] to schedule. ? Attending Participation: ? I personally performed the entire procedure. ? _ Marilee Brambila MD 10/23/2023 5:17:49 PM Number of Addenda: 0 Note Initiated On: 10/23/2023 2:42 PM PROVATION 10/23/2023 2:42 PM EST Jesika Harmon MICA BUILDER GENERAL SURGICAL O RDERABLES PROVATION * COLONOSCOPY (10/23/2023 2:41 PM EST) COLONOSCOPY [facility] Endoscopy Procedure Date: 10/23/2023 2:41 PM ? Patient Name: Barrett Salvador ? Date of : 1945 ? Age: 77 ? Order #: [id number] ? Instrument Name: [id number]- [id number] ? Procedure: ? Colonoscopy Indications: ? Hematochezia [...] preparation was ? evaluated using the BBPS (Marne ? Bowel Preparation Scale) with ? scores [...] 10/23/2023 2:41 PM EST Jesika Archie Camprieto MICA BUILDER GENERAL SURGICAL O RDERABLES PROVATION documented in [...] RN) documented in this encounter Care Teams Marketing Support Specialist Relationship Specialty Start Date End Date Jesika Harmon APRN [address] [place] [address] PCP - General Family Medicine 12/09/22 documented as of this encounter
--- OUTSIDE RECORDS SUMMARY | 2024-11-29 00:37 | XMS_ITS | Encounter Summary ---
[place] [address] Care Team Providers Care Senior Sales Administrator Name Role Phone Jesika Harmon BHARGAV Primary Care Provider +1- [phone] Encounter Details Date Type Department Care Team (Late st Contact Info) Description 08/02/2023 Telephone [place] [phone] Ian Valdez RN Social History Tobacco Use [...] it can be handled by: Any Endoscopy Junior Staff Accountant * Telephone Encounter - Ian Valdez RN - 08/02/2023 5:20 PM EDT Received below message from company secretary, Mary Beth Sepulveda sent to P [facility] G[facility] Motility Nurse Patient needs labs prior to imaging. Please add labs. Yvette documented in this encounter Plan of Treatment Not on file documented as of this encounter Results * Creatinine (09/08/2023 7:38 AM EST) Creatinine 1.06 0.80 - 1.50 mg/dL [facility] Est Glomerular Filtration Rate 73 >=60 mL/min/1. 73 m?? [facility] Comment: This patient's estimated GFR [...] Lab Jonel Dangelo APRN CHEMISTRY ORDERABLE S [facility] [place] [address] documented in this encounter Visit Diagnoses Diagnosis BRBPR (bright red blood per rectum) Hemorrhage of rectum and anus documented in this encounter Care Teams Senior Sales Administrator Relationship Specialty Start Date End Date Jesika Harmon APRN [address] [place] [address] PCP - General Family Medicine 12/09/22 documented as of this encounter
--- OUTSIDE RECORDS SUMMARY | 2024-11-29 00:37 | XMS_ITS | Encounter Summary ---
Author Organization [facility] Desirae vel[address] [address] Care Team Providers Care Grinder Set Up Operator Thread Tool Name Role Phone Jesika Harmon APRN Primary Care Provider +1- [phone] Reason for Visit * Reason Comments Medication Refill Encounter Details Date Type Department Care Team (Late st Contact Info) Description 09/16/2024 Refill [place] [address] Marilee Brambila MD [facility] [place] [address] Acute gastric ulcer without hemorrhage or perforation [...] obstruction documented in this encounter Care Teams Grinder Set Up Operator Thread Tool Relationship Specialty Start Date End Date Jesika Harmon APRN [address] [place] [address] PCP - General Family Medicine 12/09/22 documented as of this encounter
--- OUTSIDE RECORDS SUMMARY | 2024-11-29 00:37 | XMS_ITS | Encounter Summary ---
[place] [address] Care Team Providers Care Conference Organizer Name Role Phone Jesika Harmon APRN Primary Care Provider +1- [phone] Encounter Details Date Type Department Care Team (Late st Contact Info) Description 08/14/2024 Telephone [place] [address] Dakota Sterling Social History Tobacco Use Types [...] on filedocumented in this encounter Care Teams Conference Organizer Relationship Specialty Start Date End Date Jesika Harmon APRN [address] [place] [address] PCP - General Family Medicine 12/09/22 documented as of this encounter
--- OUTSIDE RECORDS SUMMARY | 2024-11-29 00:37 | XMS_ITS | Encounter Summary ---
Author Organization [facility] Desirae vel[address] [place] [address] Care Team Providers Care Caustic Loader Name Role Phone Jesika Harmon APRN Primary Care Provider +1- [phone] Encounter Details Date Type Department Care Team (Late st Contact Info) Description 10/23/2023 Orders [place] [address] Marilee Brambila MD [facility] [place] [address] Acute gastric ulcer without hemorrhage or perforation [...] obstruction documented in this encounter Care Teams Caustic Loader Relationship Specialty Start Date End Date Jesika Harmon APRN [address] [place] [address] PCP - General Family Medicine 12/09/22 documented as of this encounter
--- OUTSIDE RECORDS SUMMARY | 2024-11-29 00:37 | XMS_ITS | Encounter Summary ---
Author Organization [facility] [place] [address] Care Team Providers Care Sustainability Purchasing Agent Name Role Phone Jesika Harmon BHARGAV Primary Care Provider +1- [phone] Encounter Details Date Type Department Care Team (Latest Contact Info) Description 09/08/2023 7:35 AM EST Laboratory Appointment Lab [address]L [place] [phone] BRBPR (bright red blood per rectum) Social [...] 0.80 - 1.50 mg/dL [facility] Est Glomerular Filtration Rate 73 >=60 mL/min/1. 73 m?? [facility] Comment: This patient's estimated GFR [...] Lab Jonel Dangelo APRN [place] [address] documented in this encounter Visit Diagnoses Diagnosis BRBPR (bright red blood per rectum) Hemorrhage of rectum and anus documented in this encounter Care Teams Sustainability Purchasing Agent Relationship Specialty Start Date End Date Jesika Harmon APRN [address] [place] [address] PCP - General Family Medicine 12/09/22 documented as of this encounter
--- OUTSIDE RECORDS SUMMARY | 2024-11-29 00:37 | XMS_ITS | Encounter Summary ---
[place] [address] Care Team Providers Care Dustless Operator Name Role Phone Jesika Harmon BHARGAV Primary Care Provider +1- [phone] Encounter Details Date Type Department Care Team (Late st Contact Info) Description 06/30/2023 Telephone [place] [address] Dio Kauffman Social History Tobacco Use Types [...] calls can be handled by: Motility Lab Mercury Cracking Tester * Telephone Encounter - Dio Kauffman - 06/30/2023 2:53 PM EDT Inbound/Outbound: Outbound Spoke to Patient/Left Message: Left message Notes: Outbound call to patient to schedule motility lab testing from referral. Left message askingfor callback to schedule. Return calls can be handled by: Motility Lab Mercury Cracking Tester documented in this encounter Plan of Treatment Not on file documented as of this encounter Visit Diagnoses Not on filedocumented in this encounter Care Teams Dustless Operator Relationship Specialty Start Date End Date Jesika Harmon APRN [address] [place] [address] PCP - General Family Medicine 12/09/22 documented as of this encounter
--- OUTSIDE RECORDS SUMMARY | 2024-11-29 00:37 | XMS_ITS | Encounter Summary ---
Author Organization [facility] [address] Care Team Providers Care Chemical Handler Name Role Phone Jesika Harmon APRN Primary Care Provider +1- [phone] Encounter Details Date Type Department Care Team [...] on filedocumented in this encounter Care Teams Chemical Handler Relationship Specialty Start Date End Date Jesika Harmon APRN [address] [place] [address] PCP - General Family Medicine 12/09/22 documented as of this encounter
--- OUTSIDE RECORDS SUMMARY | 2024-11-29 00:37 | XMS_ITS | Encounter Summary ---
Author Organization [facility] Desirae velázquez [place] [address] Care Team Providers Care Substation Operator Automatic Name Role Phone Camprieto Jesikaemilia Almanza APRN Primary Care Provider +1- [phone] Reason for Referral * Diagnostic Test (Routine) - Closed Specialty Diagnoses / Procedures Referred By Contac t Referred To Contact Radiology Diagnoses Heartburn Dysphagia, unspecified type Voice hoarseness Lower abdominal pain BRBPR (bright red blood per rectum) Personal history of colonic polyps Procedures CT Abdomen & Pelvis w Contrast Jonel Dangelo APRN [facility] [place] [address] [facility] [place] [address] Referral ID Status Reason Start Date Expiration Date V isits Requested Visits Authorized [id number] Closed Specialty Service Requested 06/30/2023 12/28/2024 1 1 Reason for Visit * Diagnostic Test (Routine) - Closed Specialty Diagnoses / Procedures Referred By Contac t Referred To Contact Radiology Diagnoses Heartburn Dysphagia, unspecified type Voice hoarseness Lower abdominal pain BRBPR (bright red blood per rectum) Personal history of colonic polyps Procedures CT Abdomen & Pelvis w Contrast Jonel Dangelo APRN [facility] [place] [address] [facility] [place] [address] Referral ID Status Reason Start Date Expiration Date V isits Requested Visits Authorized [id number] Closed Specialty Service Requested 06/30/2023 12/28/2024 1 1 Encounter Details Date Type Department Care Team (Latest Contact Info) Description 09/08/2023 7:13 AM EST - 09/08/2023 11:59 PM EST Hospital Encounter [facility] [place] [address] Jonel Dangelo, BHARGAV [facility] GASTROENTEROLOGY [place] [id number] Heartburn; Dysphagia, unspecified type; Voice hoarseness; Lower [...] who have questions please contact the health personal caregiver that requested your imaging first. ? Narrative 09/08/2023 9:40 AM EST EXAMINATION: CT [...] patients who have questions please contactthe health personal caregiver that requested your imaging first. Jonel Dangelo APRN [facility] ORDERABLES documented in this encounter Visit [...] mLs documented in this encounter Care Teams Substation Operator Automatic Relationship Specialty Start Date End Date Jesika Harmon, BILLET ASSEMBLER [address] [place] [address] PCP - General Family Medicine 12/09/22 documented as of this encounter
--- OUTSIDE RECORDS SUMMARY | 2024-11-29 00:37 | XMS_ITS | Encounter Summary ---
Author Organization [facility] [place] [address] Care Team Providers Care Customs Compliance Manager Name Role Phone Camprieto Jesikaemilia Almanza APRN Primary Care Provider +1- [phone] Encounter Details Date Type Department Care Team (Latest Contact Info) Description 08/30/2023 2:00 PM EST - 08/30/2023 11:59 PM [facility] Hospital Encounter XRay at [address] [place] [address] Jonel Dangelo SENIOR MAINFRAME PROGRAMMER [facility] [place] [address] Heartburn; Dysphagia, unspecified type; Voice hoarseness; Lower [...] who have questions please contact the health direct support professional caregiver that requested your imaging first. ? Narrative 08/30/2023 2:59 PM EST EXAMINATION: XR [...] patients who have questions please contactthe health direct support professional caregiver that requested your imaging first. Jonel Dangelo APRN [facility] ORDERABL ES documented in this encounter Visit Diagnoses Diagnosis Heartburn Dysphagia, unspecified type Voice hoarseness Dysphonia Lower abdominal pain Abdominal pain, other specified site BRBPR (bright red blood per rectum) Hemorrhage of rectum and anus Personal history of colonic polyps documented in this encounter Care Teams Customs Compliance Manager Relationship Specialty Start Date End Date Jesika Harmon, BHARGAV [address] [place] [address] PCP - General Family Medicine 12/09/22 documented as of this encounter
--- OUTSIDE RECORDS SUMMARY | 2024-11-29 00:37 | XMS_ITS | Encounter Summary ---
[facility] [place] [address] Care Team Providers Care Cabin Worker Name Role Phone Jesika Harmon APRN Primary Care Provider +1- [phone] Reason for Visit * Reason Onset Date Comments Appointment 08/02/2023 CT Encounter Details Date Type Department Care Team (Late st Contact Info) Description 08/02/2023 [place] [phone] Deborah Soriano RN Appointment (CT) Social History [...] on filedocumented in this encounter Care Teams Cabin Worker Relationship Specialty Start Date End Date Jesika Harmon APRN [address] [place] [address] PCP - General Family Medicine 12/09/22 documented as of this encounter
--- OUTSIDE RECORDS SUMMARY | 2024-11-29 00:37 | XMS_ITS | Encounter Summary ---
Author Organization [facility] Address [facility] Desirae vel[address]quez [place] [address] Care Team Providers Care Processing Lead Name Role Phone Jesika Harmon APRN Primary Care Provider +1- [phone] Reason for Referral * Consultation (Routine) - Closed Specialty Diagnoses / Procedures Referred By Nelia sanford Referred To Contact Gastroenterology Diagnoses Gastroduodenitis, unspecified, without bleeding Gastroduodenitis Jesika Harmon APRN [address] [place] [address] Marilee Barmbila MD [facility] [address] Referral ID Status Reason Start Date Expiration Date V isits Requested Visits Authorized [id number] Closed Consult, Test & Treat PCP Updated and/or Approved 02/19/2024 02/18/2025 6 6 Encounter Details Date Type Department Care Team (Late st Contact Info) Description 02/19/2024 Transcribe Orders eDH Incoming Referrals [phone] Jesika Harmon APRN [address] [place] [address] Gastroduodenitis, unspecified, without bleeding Social History Tobacco [...] bleeding documented in this encounter Care Teams Processing Lead Relationship Specialty Start Date End Date Jesika Harmon APRN [address] [place] [address] PCP - General Family Medicine 12/09/22 documented as of this encounter
--- OUTSIDE RECORDS SUMMARY | 2024-11-29 00:37 | XMS_ITS | Encounter Summary ---
Author Organization [facility] [place] [address] Care Team Providers Care Litharge Mill Operator Name Role Phone Camprieto Jesikaemilia Almanza APRN Primary Care Provider +1- [phone] Reason for Visit * Reason Comments Follow-up * Consultation (Routine) - Closed Specialty Diagnoses / Procedures Referred By Nelia sanford Referred To Contact General Surgery Diagnoses Epigastric hernia Jonel Dangelo APRN [facility] [place] [address] [facility] Gen Surgery [address] [place] [address] Referral ID Status Reason Start Date Expiration Date V isits Requested Visits Authorized [id number] Closed Consult, Test & Treat 06/30/2023 06/29/2024 1 1 Encounter Details Date Type Department Care Team (Late st Contact Info) Description 12/05/2023 4:00 PM EST Office [place] [address] Shelly Morris MD [facility] [place] [address] Epigastric hernia Social History Tobacco [...] 3.56) performed by Marilee Brambila MD at [facility] ENDOSCOPY PRO UPPER GI ENDOSCOPY, BIOPSY N/A 10/23/2023 EGD WITH BIOPSY (WRVU 2.39) performed by Marilee Brambila MD at [facility] ENDOSCOPY Medications: Current Outpatient Medications on File Prior to Visit Medication Sig Dispense Refill multivitamin (THERAGRAN) Tablet Take 1 tablet by mouth daily. APPLE CIDER VINEGAR ORAL Take by mouth Daily. omeprazole (PriLOSEC) [address] capsule Take 1 capsule by mouth daily. Take 30 min prior to ueuucevl78 capsule 3 aspirin EC 81 mg EC [...] gangrene documented in this encounter Care Teams Litharge Mill Operator Relationship Specialty Start Date End Date Jesika Harmon APRN [address] [place] [address] PCP - General Family Medicine 12/09/22 documented as of this encounter
--- OUTSIDE RECORDS SUMMARY | 2024-11-29 00:37 | XMS_ITS | Encounter Summary ---
Author Organization [facility] [place] [address] Care Team Providers Care Dedicated Owner Operator Name Role Phone Jesika Harmon APRN Primary Care Provider +1- [phone] Reason for Visit * Reason Onset Date Comments Appointment 07/17/2023 CT Abd/Pelvis Encounter Details Date Type Department Care Team (Late st Contact Info) Description 07/17/2023 [place] [address] Chin Zepeda, RN Appointment (CT Abd/Pelvis) Social [...] message for pt to call CT at [phone] to schedule imaging. documented in this encounter Plan of Treatment Not on file documented as of this encounter Visit Diagnoses Not on filedocumented in this encounter Care Teams Dedicated Owner Operator Relationship Specialty Start Date End Date Jesika Harmon APRN [address] [place] [address] PCP - General Family Medicine 12/09/22 documented as of this encounter
--- OUTSIDE RECORDS SUMMARY | 2024-11-29 00:37 | XMS_ITS | Encounter Summary ---
Author Organization [facility] [place] [address] Care Team Providers Care Food Trades Assistants Name Role Phone Jesika Harmon Archie DURANT Primary Care Provider +1- [phone] Reason for Visit * Speech Therapy (Routine) - Closed Specialty Diagnoses / Procedures Referred By Nelia sanford Referred To Contact Speech Therapy Diagnoses Heartburn Dysphagia, unspecified type Voice hoarseness Lower abdominal pain BRBPR (bright red blood per rectum) Personal history of colonic polyps RFV Jonel Chacon, BHARGAV [facility] [place] [address] [facility] Plant Utilities [place] [address] Referral ID Status Reason Start Date Expiration Date V isits Requested Visits Authorized [id number] Closed Evaluate and Treat 06/30/2023 06/29/2024 100 100 Encounter Details Date Type Department Care Team (Latest Contact Info) Description 08/30/2023 2:00 PM EST Procedure visit [place] [address] Isaias Dubose, DOPE WORKER Dysphagia, unspecified type Social History Tobacco Use [...] Notes * Initial Evaluation - Isaias Dubose, DOPE WORKER - 08/30/2023 2:00 PM EST Speech-Language Pathology [...] with any questions or concerns. ISAIAS DUBOSE, DOPE WORKER MA, [facility]-DOPE WORKER [phone] Speech-Language Pathology Outpatient Rehabilitation Department documented in [...] type documented in this encounter Care Teams Food Trades Assistants Relationship Specialty Start Date End Date Jesika Harmon APRN [address] [place] [phone] PCP - General Family Medicine 12/09/22 documented as of this encounter
--- OUTSIDE RECORDS SUMMARY | 2024-11-29 00:37 | XMS_ITS | Encounter Summary ---
[place] [address] Care Team Providers Care Head Teacher Name Role Phone Jesika Harmon APRN Primary Care Provider +1- [phone] Reason for Referral * Consultation (Routine) - Closed Specialty Diagnoses / Procedures Referred By Nelia sanford Referred To Contact Gastroenterology Diagnoses Gastroesophageal reflux disease, unspecified whether esophagitis present call 01/04/23-motility- GERD Jesika Harmon APRN [address] [place] [address] [facility] Gastro [address] [place] [phone] Referral ID Status Reason Start Date Expiration Date V isits Requested Visits Authorized [id number] Closed Consult, Test & Treat PCP Updated and/or Approved 12/09/2022 12/09/2023 6 6 Encounter Details Date Type Department Care Team (Latest Contact Info) Description 12/09/2022 Transcribe Orders eDH Incoming Referrals [phone] Jesika Harmon APRN [address] [place] [phone] Gastroesophageal reflux disease, unspecified whether esophagitis present [...] present documented in this encounter Care Teams Head Teacher Relationship Specialty Start Date End Date Jesika Harmon APRN [address] [place] [phone] PCP - General Family Medicine 12/09/22 documented as of this encounter
--- OUTSIDE RECORDS SUMMARY | 2024-11-29 00:37 | XMS_ITS | Encounter Summary ---
Author Organization [facility] [place] [address] Care Team Providers Care Radio Mechanic Name Role Phone Jesika Harmon APRN Primary Care Provider +1- [phone] Encounter Details Date Type Department Care Team [...] on filedocumented in this encounter Care Teams Radio Mechanic Relationship Specialty Start Date End Date Jesika Harmon APRN [address] [place] [address] PCP - General Family Medicine 12/09/22 documented as of this encounter
--- OUTSIDE RECORDS SUMMARY | 2024-11-29 00:37 | XMS_ITS | Encounter Summary ---
Author Organization [facility] [place] [address] Care Team Providers Care Service Representative Name Role Phone Camprieto Jesika Archie DURANT Primary Care Provider +1- [phone] Reason for Referral * Consultation (Routine) - Closed Specialty Diagnoses / Procedures Referred By Nelia sanford Referred To Contact Otolaryngology Diagnoses Heartburn Dysphagia, unspecified type Voice hoarseness Lower abdominal pain BRBPR (bright red blood per rectum) Personal history of colonic polyps Epigastric hernia Jonel Dangelo ADVERTISING SPACE CLERK [facility] [place] [address] [facility] Otolaryngology [address] [place] [phone] Referral ID Status Reason Start Date Expiration Date V isits Requested Visits Authorized [id number] Closed Consult, Test & Treat 06/30/2023 06/29/2024 1 1 * Consultation (Routine) - Closed Specialty Diagnoses / Procedures Referred By Nelia sanford Referred To Contact General Surgery Diagnoses Epigastric hernia Jonel Dangelo APRN [facility] [place] [address] [facility] Gen Surgery [address] [address] Referral ID Status Reason Start Date Expiration Date V isits Requested Visits Authorized [id number] Closed Consult, Test & Treat 06/30/2023 06/29/2024 1 1 * Diagnostic Test (Routine) - Closed Specialty Diagnoses / Procedures [facility] Referred To Contact Gastroenterology Diagnoses Heartburn Dysphagia, unspecified type Voice hoarseness Lower abdominal pain BRBPR (bright red blood per rectum) Personal history of colonic polyps pH impedance OFF PPI - dysphagia see also hrem Procedures pH Impedance - 24 Hour Jonel Dangelo ADVERTISING SPACE CLERK [facility] [place] [address] [place] [address] Referral ID Status Reason Start Date Expiration Date V isits Requested Visits Authorized [id number] Closed Consult, Test & Treat 06/30/2023 06/29/2024 1 1 * Diagnostic Test (Routine) - Closed Specialty Diagnoses / Procedures [facility] Referred To Contact Gastroenterology Diagnoses Heartburn Dysphagia, unspecified type Voice hoarseness Lower abdominal pain BRBPR (bright red blood per rectum) Personal history of colonic polyps HREM - dysphagia see also ph imp stop PPI 2 wks prior to testing Procedures High Resolution Esophageal Manometry Jonel Dangelo [facility] [place] [address] [facility] Gastro [address] [place] [address] Referral ID Status Reason Start Date Expiration Date V isits Requested Visits Authorized [id number] Closed Test Only 06/30/2023 06/29/2024 1 1 * Diagnostic Test (Routine) - Closed Specialty Diagnoses / Procedures Referred By Nelia sanford Referred To Contact Radiology Diagnoses Heartburn Dysphagia, unspecified type Voice hoarseness Lower abdominal pain BRBPR (bright red blood per rectum) Personal history of colonic polyps Procedures CT Abdomen & Pelvis w Contrast Jonel Dangelo APRN [facility] [place] [address] [facility] [place] [address] Referral ID Status Reason Start Date Expiration Date V isits Requested Visits Authorized [id number] Closed Specialty Service Requested 06/30/2023 12/28/2024 1 1 * Speech Therapy (Routine) - Closed Specialty Diagnoses / Procedures Referred By Nelia sanford Referred To Contact Speech Therapy Diagnoses Heartburn Dysphagia, unspecified type Voice hoarseness Lower abdominal pain BRBPR (bright red blood per rectum) Personal history of colonic polyps RFV MBS Jonel Dangelo APRN [facility] [place] [address] [facility] [place] [address] Referral ID Status Reason Start Date Expiration Date V isits Requested Visits Authorized [id number] Closed Evaluate and Treat 06/30/2023 06/29/2024 100 100 Reason for Visit * Consultation (Routine) - Closed Specialty Diagnoses / Procedures Referred By Nelia sanford Referred To Contact Gastroenterology Diagnoses Gastroesophageal reflux disease, unspecified whether esophagitis present call 01/04/23-motility- GERD Jesika Harmon APRN [address] [place] [address] [facility] [place]astro [address] [address] Referral ID Status Reason Start Date Expiration Date V isits Requested Visits Authorized [id number] Closed Consult, Test & Treat PCP Updated and/or Approved 12/09/2022 12/09/2023 6 6 Encounter Details Date Type Department Care Team (Late st Contact Info) Description 06/30/2023 1:00 PM EDT Office [place] [address] Jonel Dangelo, ADVERTISING SPACE CLERK [facility] [place] [address] Heartburn; Dysphagia, unspecified type; Voice hoarseness; Lower [...] Patient Instructions * Patient Instructions* Jonel Dangelo, ADVERTISING SPACE CLERK - 06/30/2023 1:00 PM EDT Dear Barrett, It was nice to meet you today. I have listed the recommendations we discussed below. Please call the GI department to schedule the investigations if you do not hear from us within 1 week: Clinic [phone] [facility] Lab scheduling [phone] Endoscopy scheduling- [phone] Please call the Radiology department to schedule imaging tests at [phone]. 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 [address] documented in this encounter Plan of Treatment [...] who have questions please contact the health wound care center consultant that requested your imaging first. ? Narrative [...] patients who have questions please contactthe health wound care center consultant that requested your imaging first. Jonel Dangelo APRN IMG CT ORDERABLES * [...] who have questions please contact the health wound care center consultant that requested your imaging first. ? Narrative [...] patients who have questions please contactthe health wound care center consultant that requested your imaging first. Jonel Dangelo [...] polyps documented in this encounter Care Teams Service Representative Relationship Specialty Start Date End Date Jesika Harmon APRN [address] [place] [address] PCP - General Family Medicine 12/09/22 documented as of this encounter
--- OUTSIDE RECORDS SUMMARY | 2024-11-29 00:37 | XMS_ITS | Encounter Summary ---
[place] [address] Care Team Providers Care Phlebotomy Technologist Name Role Phone Jesika Harmon APRN Primary Care Provider +1- [phone] Encounter Details Date Type Department Care Team (Late st Contact Info) Description 11/14/2023 Telephone [place] [address] Dakota Sterling Social History Tobacco Use Types [...] on filedocumented in this encounter Care Teams Phlebotomy Technologist Relationship Specialty Start Date End Date Jesika Harmon APRN [address] [place] [phone] PCP - General Family Medicine 12/09/22 documented as of this encounter
--- OUTSIDE RECORDS SUMMARY | 2024-11-29 00:37 | XMS_ITS | Encounter Summary ---
Author Organization [facility] [place] [address] Care Team Providers Care Director Of Early Childhood Education Name Role Phone Jesika Harmon APRN Primary Care Provider +1- [phone] Encounter Details Date Type Department Care Team [...] on filedocumented in this encounter Care Teams Director Of Early Childhood Education Relationship Specialty Start Date End Date Jesika Harmon APRN [address] [place] [id number] PCP - General Family Medicine 12/09/22 documented as of this encounter
[2024-11-29] MEDS: Barium Sulfate 2% W/V-Berry Smoothie 450 ML BTL PO (12:00)
[2024-11-29] MEDS: Barium Sulfate 2% W/V-Creamy Vanilla Smoothie 450 ML BTL PO (12:00)
[2024-11-29] MEDS: Normal Saline - Diluent 50 ML VIAL IJ (13:56)
[2024-11-29] MEDS: Omnipaque 350 MG/ML 100 ML BTL IJ (14:00)
== END 2024-11-29 00:51 ==
PROVIDERS: PCP Physician Assistant; Visit Provider Physician Assistant
DX: I71.40 Abdominal aortic aneurysm, without rupture, unspecified (principal); N40.0 Benign prostatic hyperplasia without lower urinary tract symptoms
CPT/HCPCS: 74177; J3490

== ENCOUNTER 2025-07-07 15:04 | Outpatient (REF) | payer MEDICARE, SELFPAY ==
[2025-07-07 19:39] LABS: HCT 39.8 % (40.0-50.0); HGB 13.9 g/dL (13.5-17.5); MCH 31.9 pg (27.0-33.0); MCHC 34.9 % (32.0-36.0); MCV 91 fL (80-95); MPV 8.8 fL (8.0-11.0); Platelet Count 203 10^3/uL (130-400); RBC 4.36 10^6/uL (4.36-5.78); RDW 12.5 % (11.8-14.1); RDW-SD 41.5 fL; WBC 4.44 10^3/uL (4.4-10.8)
[2025-07-07 19:49] LABS: ALT 45 U/L (16-63); AST 23 U/L (15-37); Albumin 4.0 g/dL (3.4-5.0); Alkaline Phosphatase 67 U/L (46-116); Anion Gap 5.5 mmol/L (3-11); BUN 12 mg/dL (7-18); Bilirubin, Total 0.4 mg/dL (0.2-1.0); CO2 31.5 mmol/L (21.0-32.0); Calcium 10.2 mg/dL (8.5-10.1); Chloride 98 mmol/L (98-107); Glucose 134 mg/dL (74-106); Potassium 3.8 mmol/L (3.5-5.1); Sodium 135 mmol/L (136-145); Total Protein 7.5 g/dL (6.4-8.2)
[2025-07-07 21:05] LABS: Hemoglobin A1C 5.8 % (<5.7)
[2025-07-08 20:10] LABS: PSA, Screening 4.4 ng/mL (<=6.5)
== END 2025-07-07 15:05 | disposition home or self-care (01) ==
LOC: NCHCN 15:04
PROVIDERS: PCP Physician Assistant; Visit Provider Nurse Practitioner Family
DX: R06.02 Shortness of breath (principal); I10 Essential (primary) hypertension; R73.9 Hyperglycemia, unspecified; N40.1 Benign prostatic hyperplasia with lower urinary tract symptoms
CPT/HCPCS: 80053; 84153; 85027; 83036

== ENCOUNTER → 2025-08-07 08:57 | Outpatient (BNVA) | payer MEDICARE, SELFPAY | PROVIDERS: PCP Physician Assistant; Referring Provider Physician Assistant; Visit Provider Nurse Practitioner Gerontology | DX: N40.1 Benign prostatic hyperplasia with lower urinary tract symptoms (principal); N13.8 Other obstructive and reflux uropathy; R39.9 Unspecified symptoms and signs involving the genitourinary system | CPT/HCPCS: 99215; 81002; 51798 ==